=== PATIENT | male | born 1965 | race Caucasian/White ===

== ENCOUNTER 2019-01-20 14:07 | Outpatient (REF) | payer MEDICAID, SELFPAY ==
[2019-01-20 20:44] LABS: Abs Immature Grans 0.03 k/cumm (0.0-0.09); Absolute Basophil Count 0.04 k/cumm (0.0-0.2); Absolute Eosinophil Count 0.27 k/cumm (0.0-0.7); Absolute Lymphocyte Count 3.13 k/cumm (1.2-3.4); Absolute Monocyte Count 1.27 k/cumm (0.11-0.7); Absolute Neutrophil Count 10.08 k/cumm (1.2-6.7); Basophils % 0.3; Eosinophils % 1.8; HCT 40.7 % (40.0-50.0); HGB 13.8 g/dL (13.5-17.5); Immature Grans % 0.2; Lymphocytes % 21.1; Mean Corp. HGB Concentration 33.9 g/dL (32.0-36.0); Mean Corpuscular Volume 100.2 fL (80-95); Mean Platelet Volume 10.7 fL (8.0-11.0); Monocytes % 8.6; Platelet Count 333 x1000/uL (130-400); RBC 4.06 m/cumm (4.50-6.00); RBC Distribution Width 14.8 % (11.8-14.1); White Blood Cell Count 14.82 k/cumm (4.4-10.8)
[2019-01-20 20:52] LABS: ALT 23 U/L (16-63); AST 14 U/L (15-37); Albumin 3.7 g/dL (3.4-5.0); Alkaline Phosphatase 53 U/L (46-116); Anion Gap 9.4 mmol/L (3-11); BUN 7 mg/dL (7-18); Bilirubin, Total 0.3 mg/dL (0.2-1.0); C-Reactive Protein 0.48 mg/dL (0.0-0.3); CO2 29.6 mmol/L (21.0-32.0); CREATININE 0.84 mg/dL (0.70-1.30); Calcium 8.9 mg/dL (8.5-10.1); Chloride 106 mmol/L (98-107); Glucose 87 mg/dL (70-100); Sodium 145 mmol/L (136-145); Total Protein 6.6 g/dL (6.4-8.2)
[2019-01-20 22:04] LABS: ESR 15 mm/hr (1-20)
== END 2019-01-20 14:27 ==
LOC: NCHCN 14:07
PROVIDERS: PCP Family Medicine; Visit Provider Family Medicine
DX: A77.40 Ehrlichiosis, unspecified (principal)
CPT/HCPCS: 80053; 85652; 85025; 86140

== ENCOUNTER 2019-02-10 15:18 | Outpatient (REF) | payer MEDICAID, SELFPAY ==
[2019-02-10 21:06] LABS: Hemoglobin A1C 5.4 % (4.5-6.2)
[2019-02-10 21:32] LABS: Calculated LDL 90 mg/dL; Cholesterol 161 mg/dL (50-200); HDL Cholesterol 47 mg/dL (40-60); TSH (W/Ref FT4) 0.49 uIU/mL (0.36-3.74); Triglyceride 123 mg/dL (30-150); Vitamin B12 1285 pg/mL (193-986)
[2019-02-14 10:13] LABS: Hep B Core Antibody Negative (NEGAT)
[2019-02-14 10:26] LABS: Hepatitis C Ab w Rflx HCV PCR Negative (NEGAT)
== END 2019-02-10 15:38 ==
LOC: NCHCN 15:18
PROVIDERS: PCP Family Medicine; Visit Provider Nurse Practitioner Family
DX: F41.8 Other specified anxiety disorders (principal); F10.20 Alcohol dependence, uncomplicated; Z11.59 Encounter for screening for other viral diseases
CPT/HCPCS: 80061; 86704; 86803; 82607; 83036; 84443

== ENCOUNTER 2019-02-16 11:06 | Outpatient (REF) | payer MEDICAID, SELFPAY ==
[2019-02-16 21:34] LABS: Abs Immature Grans 0.05 k/cumm (0.0-0.09); Absolute Eosinophil Count 0.45 k/cumm (0.0-0.7); Absolute Lymphocyte Count 2.83 k/cumm (1.2-3.4); Absolute Monocyte Count 1.36 k/cumm (0.11-0.7); Absolute Neutrophil Count 12.03 k/cumm (1.2-6.7); Basophils % 0.2; Eosinophils % 2.7; HCT 47.1 % (40.0-50.0); HGB 15.4 g/dL (13.5-17.5); Immature Grans % 0.3; Lymphocytes % 16.9; Mean Corp. HGB Concentration 32.7 g/dL (32.0-36.0); Mean Corpuscular Hemoglobin 32.8 pg (27.0-33.0); Mean Corpuscular Volume 100.2 fL (80-95); Mean Platelet Volume 11.3 fL (8.0-11.0); Monocytes % 8.1; Neutrophils % 71.8; Platelet Count 295 x1000/uL (130-400); RBC Distribution Width 14.6 % (11.8-14.1); White Blood Cell Count 16.76 k/cumm (4.4-10.8)
[2019-02-16 21:35] LABS: Absolute Basophil Count 0.03 k/cumm (0.0-0.2)
[2019-02-16 21:55] LABS: C-Reactive Protein 1.83 mg/dL (0.0-0.3)
[2019-02-16 22:15] LABS: ESR 11 mm/hr (1-20)
[2019-02-18 23:16] LABS: Anaplasma phagocytophilum Negative (Negative); B. miyamotoi PCR Negative (Negative); Babesia divergens/MO-1 Negative (Negative); Babesia duncani Negative (Negative); Babesia microti Negative (Negative); Ehrlichia chaffeensis Negative (Negative); Ehrlichia ewingii/canis Negative (Negative); Ehrlichia muris eauclairensis Negative (Negative)
[2019-02-20 11:06] LABS: Rheumatoid Factor 9 IU/mL (<12.5)
[2019-02-20 12:09] LABS: Lyme Ab w Rflx to Lyme Confirm Negative
[2019-02-20 14:20] LABS: ANA Interpretation Negative (NEGAT)
== END 2019-02-16 11:26 ==
LOC: NCHCN 11:06
PROVIDERS: PCP Family Medicine; Visit Provider Nurse Practitioner Family
DX: D64.9 Anemia, unspecified (principal); G89.4 Chronic pain syndrome; M79.641 Pain in right hand; W57.XXXA Bitten or stung by nonvenomous insect and other nonvenomous arthropods, initial encounter; T14.8XXA Other injury of unspecified body region, initial encounter
CPT/HCPCS: 85652; 87798; 85025; 86038; 86140; 86431; 86618

== ENCOUNTER 2021-01-01 21:32 | Outpatient (REF) | payer MEDICAID, SELFPAY ==
[2021-01-02 18:35] LABS: PSA, Screening 1.5 ng/mL (0.0-3.5)
== END 2021-01-01 21:33 | disposition home or self-care (01) ==
LOC: NCHCN 21:32
PROVIDERS: PCP Family Medicine; Visit Provider Nurse Practitioner Community Health
DX: Z12.5 Encounter for screening for malignant neoplasm of prostate (principal)
CPT/HCPCS: 84153

== ENCOUNTER 2021-03-24 16:23 | Emergency (ER) | payer MEDICAID, SELFPAY ==
[2021-03-24 16:45] VITALS: BP 161/73; PULSE 107; RESP 16; TEMP 37.4; O2SAT 99
--- NOTE | 2021-03-24 16:46 | ED.GENADUL_ITS ---
Discharge Plan Disposition Patient Disposition: HOME Condition: Stable Discharge Details Clinical Impression: Opioid abuse, Depression Primary Care Provider: Unknown,Unknown ED Provider: Felipa Mccauley Home Meds and New Rx's Prescriptions: Continued cyanocobalamin (vitamin B-12) [Vitamin B-12] 2,500 mcg Tablet, Sublingual 25,000 mcg PO DAILY RF: 0 meloxicam 15 mg Tablet 15 mg PO .QHS RF: 0 quetiapine [Seroquel] 100 mg Tablet 100 - 200 mg PO .QHS RF: 0 lamotrigine 100 mg Tablet 100 mg PO BID RF: 0 cholecalciferol (vitamin D3) [Vitamin D3] 25 mcg (1,000 unit) Capsule 1,000 unit PO BID RF: 0 duloxetine 60 mg Capsule,Delayed Release(Dr/Ec) 60 mg PO DAILY RF: 0 Discharge Instructions Instructions: Buprenorphine/Naloxone (Into the mouth), Naloxone (Into the nose), Depression (ED) Additional Instructions: Plan is for you to have close follow-up with mental health. Please call tomorrow to check in. You are to call between 4-6 PM tomorrow evening at [phone]. If you have any increased anxiety, depression you may contact them at any time. If you develop thoughts of self-harm, suicidal ideation please return urgently to the emergency department. In regard to your opioid addiction, you will be starting on the medication assisted treatment of opioid use disorder program. We are setting you home with Suboxone. Please only as prescribed. Your girlfriend is to be in charge of these and keep it in a safe place. Drop was sent home with Narcan to be used if you have any evidence of respiratory depression or overdose. Please call [facility] tomorrow morning to schedule follow-up appointment as soon as possible. Number is listed on the attached packet. Return with any new or worsening symptoms. Please follow-up with primary care in 1 week for reevaluation. Discharge Data Discharge Date/Time-TO BE ENTERED AT DEPARTURE: 03/24/21 19:37 Medical Decision Making Patient is a pleasant 55 year old male presenting today with c/c of withdrawal symptoms from suboxone. States that he has known cancer. During admission for his cancer, state he became addicted to narcotics. After d/c wanted to get clean and thought suboxone would be the way to do so. States that he had intended to stop but became addicted to the suboxone that he has been getting off the street. Ran out today. States that he had been taking 8mg a day. is concerned that he has been expressing thoughts of self harm at home. He denies active SI, HI or plan. However, acknowledges that he has not been doing well mentally at home. Patient here requesting help setting up suboxone as an outpatient through [facility] program. By COWS evaluation, score of 4 making him mild withdrawal symptoms. Last dose of suboxone was 24 hours ago. His major complaint at this time is anxiety. Will give ativan. HAve requested consultation with and cross country/track and field coach. As he is not actively suicidal, appears to have good personal insight and support, will hold off on CPSO. Feeling improved after Ativan. Folowing MAT, will obtain requested labs. Plan to get in with [facility] tomorrow. Hoping to get patient tied in closer with and have a cross country/track and field coach. Patient evaluated by cross country/track and field coach as well as . will tie patient in closer and get f/u with their providers for counseling as well as psychiatrist. Kelle will also check in with patient daily. She feels that patient is safe for d/c to home and good candidate for MAT. Reevlauted the patient, he appears much calmer. Is forward thinging and excited to be seeking care with above groups. Patient, his girlfriend and I discussed MAT program and sending home with suboxone today. I feel that he is an excellent candidate to begin this. Have sent referral to [facility]. Plan will be for SO to be in charge of the medication although patient does want to use only 8mg per day and get help. Risks/benefits were discussed at length. They voice understand and would like to move forward wit his program. Will send home with Suboxone and Narcan. Strict return precautiosn discussed. He will f/u with cross country/track and field coach and . All of their quesitons and concerns were addressed, they arein agreement with this plan. Patient has PCP and team for his cancer treatment, does not feel that he needs more assistance with this. I have asked care management to help with f/u with [facility] clinic and ensure no barriers. HPI General Mode of arrival: ambulatory . Date/Time Provider Initiated Documentation: 03/24/21 16:30 . Limitations to Documentation: no limitations . Information obtained by: patient, family () and RN notes reviewed . HPI Narrative: Patient is a pleasant 55 year old male presenting today with c/c of wanting detox. Patient states that he was admitted for cancer several months ago at [facility]. States that while there he became addicted to opiates. States in effort to get clean, he began using Suboxone. thoughts that he would get off of it quickly so was getting this off the street. States he has been using 8mg daily. Ran out yesterday. Wants to be able to get clean. Has not had any safety issues in his life associated iwth htis. Has supportive SO who has narcan in event of OD. He denies ETOH or other drug use. States he has hx of depression and this has been increased, associates with drug use. Denies SI or HI. Reports he is currently feeling shaky and anxious. Related Data Home Medications Medication Instructions Recorded Confirmed cholecalciferol (vitamin D3) 1,000 unit PO BID 03/24/21 03/24/21 [Vitamin D3] cyanocobalamin (vitamin B-12) 25,000 mcg PO DAILY 03/24/21 03/24/21 [Vitamin B-12] duloxetine 60 mg PO DAILY 03/24/21 03/24/21 lamotrigine 100 mg PO BID 03/24/21 03/24/21 meloxicam 15 mg PO .QHS 03/24/21 03/24/21 quetiapine [Seroquel] 100 - 200 mg PO .QHS 03/24/21 03/24/21 Allergies Allergy/AdvReac Type Severity Reaction Status Date / Time bupropion [From Wellbutrin] Allergy Unverified 03/24/21 16:54 Review of Systems Constitutional Constitutional: Reports as per HPI, Reports fatigue, Denies fever(s) and Denies headache(s) ENT Ears, Nose, Mouth, and Throat: Denies headache(s) Cardiovascular Cardiovascular: Reports as per HPI, Denies chest pain and Denies dyspnea Respiratory Respiratory: Reports as per HPI, Denies cough and Denies dyspnea Gastrointestinal Gastrointestinal: Reports as per HPI, Denies abdominal pain, Denies change in bowel habits, Denies nausea and Denies vomiting Genitourinary Genitourinary: Denies system reviewed and no additional complaints, except as documented (denies any change in urinary habits) Integumentary/Breasts Skin/Breast: Reports as per HPI and Denies rash Neurologic Neurologic: Denies headache(s) Psychiatric Psychiatric: Reports as per HPI, Reports abnormal sleep pattern, Reports anxiety, Reports depression, Reports mood swings, Denies homicidal ideation and Denies suicidal ideation Endocrine Endocrine: Reports fatigue PFSH Social History Smoking/Tobacco Use Status: Current every day Tobacco Type: cigarettes Smoking risk assessment performed?: Yes Alcohol Intake: former Drug use: Daily Details: suboxone Exam Const General: cooperative, healthy appearing, comfortable, no acute distress, well developed, well groomed and anxious Nutritional Appearance: average body habitus and well nourished Orientation: alert and awake Eyes General: appearance normal, both eyes and all related structures Resp Effort & Inspection: normal respiratory effort, able to speak in complete sentences and no respiratory distress Auscultation: clear to auscultation bilaterally, no rales, no rhonchi and no wheezes Cardio Rate: regular rate Rhythm: regular rhythm Heart Sounds: S1 normal and S2 normal Skin General skin exam: no rashes or lesions noted Trauma: no lacerations or abrasions Neuro General: patient alert and patient awake Cognition: normal cognition Speech: speech normal Gait: normal gait Psych Appearance: grossly normal and well kempt Mental Status: mental status grossly normal Speech and Movement: speech and movement normal Mood: anxious mood Affect: anxious affect Attitude: cooperative Thought Process: normal Thought Content: normal Insight: insight good Judgment: judgment good
[2021-03-24] MEDS: LORazepam 1 MG TAB PO (17:47)
[2021-03-24 18:17] LABS: Abs Immature Grans 0.05 10^3/uL (0.0-0.06); Absolute Basophil Count 0.05 10^3/uL (0.0-0.2); Absolute Eosinophil Count 0.38 10^3/uL (0.0-0.7); Absolute Lymphocyte Count 2.32 10^3/uL (1.2-3.4); Absolute Monocyte Count 1.25 10^3/uL (0.1-0.8); Basophils % 0.3; Eosinophils % 2.3; HCT 40.2 % (40.0-50.0); Immature Grans % 0.3; Lymphocytes % 13.9; MCH 33.2 pg (27.0-33.0); MCHC 32.3 % (32.0-36.0); MCV 102.6 fL (80-95); MPV 8.8 fL (8.0-11.0); Monocytes % 7.5; Neutrophils % 75.7; Nucleated RBC 0 %; Platelet Count 345 10^3/uL (130-400); RBC 3.92 10^6/uL (4.36-5.78); RDW 16.3 % (11.8-14.1); RDW-SD 62.5 fL
[2021-03-24 18:20] LABS: *AMPHETAMINES SCREEN URINE Negative (Negative); *BARBITURATES SCREEN URINE Negative (Negative); *BENZODIAZEPINES SCREEN URINE Negative (Negative); Cannabinoids THC Negative (Negative); Cocaine Screen,Urine Negative (Negative); METHADONE URINE SCREEN Negative (Negative); OPIATES URINE SCREEN Negative (Negative); Tricyclic Antidepressants Negative (Negative)
[2021-03-24 18:22] LABS: Absolute Neutrophil Count 12.64 10^3/uL (1.2-6.7)
[2021-03-24 18:37] LABS: Acetaminophen < 2 ug/mL (10-30); Salicylate 6.5 mg/dL (<2.8)
[2021-03-24 18:41] LABS: ALT 30 U/L (16-63); AST 14 U/L (15-37); Albumin 3.4 g/dL (3.4-5.0); Alkaline Phosphatase 56 U/L (46-116); Anion Gap 7.8 mmol/L (3-11); BUN 15 mg/dL (7-18); Bilirubin, Total 0.2 mg/dL (0.2-1.0); CO2 30.2 mmol/L (21.0-32.0); CREATININE 0.7 mg/dL (0.70-1.30); Calcium 8.8 mg/dL (8.5-10.1); Chloride 102 mmol/L (98-107); Glucose 99 mg/dL (74-106); Potassium 4.1 mmol/L (3.5-5.1); Sodium 140 mmol/L (136-145); TSH (W/Ref FT4) 0.45 uIU/mL (0.36-3.74); Total Protein 6.8 g/dL (6.4-8.2)
[2021-03-24 18:49] LABS: ETHANOL BLOOD < 3.0 mg/dL (<10)
[2021-03-24 19:29] VITALS: BP 133/74; PULSE 85; TEMP 36.6; O2SAT 95
--- NOTE | 2021-03-24 19:37 | NUR.NOTE ---
Nursing Note: faxed the care management referral for panchito to care management marisa
[2021-03-24 20:04] LABS: Bilirubin Negative (Negative); Blood Negative (Negative); Clarity Clear (Clear); Glucose Negative (Negative); Ketones Negative (Negative); Leukocyte Esterase Negative (Negative); Nitrite Negative (Negative); Specific Gravity 1.015 (1.005-1.025); Urobilinogen 0.2 EU/dL (Up TO 0.2); pH 6.5 (5-8)
[2021-03-26 14:07] LABS: HBs Antibody, Qual Negative (See Note); HBs Antibody, Quant <3.1 mIU/mL (See Note); Hepatitis B Core Antibody Negative (Negative); Hepatitis B surface Ag Negative (Negative); Hepatitis C Ab w Rflx HCV PCR Negative (Negative)
[2021-03-26 14:18] LABS: HIV-1/2 Ag & Ab Screen Negative (Negative)
== END 2021-03-24 19:37 | disposition home or self-care (01) ==
PROVIDERS: Emergency Provider Physician Assistant
DX: F11.20 Opioid dependence, uncomplicated (principal); F32.9 Major depressive disorder, single episode, unspecified
CPT/HCPCS: 36415; 80053; 80307; 86704; 86706; 86803; 87340; 87389; 99283; 80320; 80329; 81003; 84443; 85025

== ENCOUNTER 2021-06-11 14:10 | Outpatient (REF) | payer MEDICAID, SELFPAY ==
[2021-06-11 21:20] LABS: Abs Immature Grans 0.03 10^3/uL (0.0-0.06); Absolute Basophil Count 0.07 10^3/uL (0.0-0.2); Absolute Eosinophil Count 0.37 10^3/uL (0.0-0.7); Absolute Lymphocyte Count 1.71 10^3/uL (1.2-3.4); Absolute Monocyte Count 0.82 10^3/uL (0.1-0.8); Basophils % 0.6; HGB 13.6 g/dL (13.5-17.5); Immature Grans % 0.2; MCH 32.2 pg (27.0-33.0); MCHC 31.6 % (32.0-36.0); MCV 101.7 fL (80-95); Monocytes % 6.7; Neutrophils % 75.5; Nucleated RBC 0 %; Platelet Count 487 10^3/uL (130-400); RBC 4.23 10^6/uL (4.36-5.78); RDW 13.7 % (11.8-14.1); RDW-SD 51.8 fL; WBC 12.22 10^3/uL (4.4-10.8)
[2021-06-11 21:56] LABS: Absolute Neutrophil Count 9.22 10^3/uL (1.2-6.7)
[2021-06-11 21:57] LABS: ALT 25 U/L (16-63); AST 19 U/L (15-37); Albumin 3.7 g/dL (3.4-5.0); Alkaline Phosphatase 78 U/L (46-116); Anion Gap 5.1 mmol/L (3-11); BUN 22 mg/dL (7-18); Bilirubin, Total 0.3 mg/dL (0.2-1.0); CO2 31.9 mmol/L (21.0-32.0); CREATININE 1.2 mg/dL (0.70-1.30); Calcium 9.3 mg/dL (8.5-10.1); Chloride 102 mmol/L (98-107); Glucose 109 mg/dL (74-106); Potassium 4.7 mmol/L (3.5-5.1); Sodium 139 mmol/L (136-145); Total Protein 6.9 g/dL (6.4-8.2)
[2021-06-11 21:58] LABS: Vitamin B12 > 2000 pg/mL (193-986)
[2021-06-11 22:39] LABS: Lipase 52 U/L (73-393)
== END 2021-06-11 14:11 | disposition home or self-care (01) ==
LOC: NCHCN 14:10
PROVIDERS: Visit Provider Nurse Practitioner Family
DX: C81.98 Hodgkin lymphoma, unspecified, lymph nodes of multiple sites (principal); J44.9 Chronic obstructive pulmonary disease, unspecified; E63.9 Nutritional deficiency, unspecified
CPT/HCPCS: 80053; 83690; 82607; 85025

== ENCOUNTER 2023-03-08 15:17 | Outpatient (REF) | payer MEDICAID, SELFPAY ==
[2023-03-08 21:11] LABS: HCT 46.2 % (40.0-50.0); HGB 15.6 g/dL (13.5-17.5); MCH 33.4 pg (27.0-33.0); MCHC 33.8 % (32.0-36.0); MCV 99 fL (80-95); MPV 9.9 fL (8.0-11.0); Platelet Count 441 10^3/uL (130-400); RBC 4.67 10^6/uL (4.36-5.78); RDW-SD 51.5 fL; WBC 12.63 10^3/uL (4.4-10.8)
[2023-03-08 21:47] LABS: ALT 28 U/L (16-63); AST 22 U/L (15-37); Albumin 4.2 g/dL (3.4-5.0); Alkaline Phosphatase 72 U/L (46-116); Anion Gap 9.9 mmol/L (3-11); BUN 18 mg/dL (7-18); Bilirubin, Total 0.3 mg/dL (0.2-1.0); CO2 25.1 mmol/L (21.0-32.0); CREATININE 0.9 mg/dL (0.70-1.30); Calcium 9.8 mg/dL (8.5-10.1); Chloride 102 mmol/L (98-107); Estimated GFR 98.38 (mL/min/1.73m2); Glucose 106 mg/dL (74-106); Magnesium 2.1 mg/dL (1.8-2.4); Potassium 4.2 mmol/L (3.5-5.1); Sodium 137 mmol/L (136-145); TSH 0.77 uIU/mL (0.36-3.74); Total Protein 8.1 g/dL (6.4-8.2)
[2023-03-08 21:48] LABS: Vitamin B12 > 2000 pg/mL (193-986)
== END 2023-03-08 15:18 | disposition home or self-care (01) ==
LOC: NCHCN 15:17
PROVIDERS: Visit Provider Registered Nurse
DX: R07.9 Chest pain, unspecified (principal)
CPT/HCPCS: 80053; 85027; 82607; 83735; 84443

== ENCOUNTER 2024-02-03 13:05 | Outpatient (REF) | payer MEDICAID, SELFPAY ==
--- OUTSIDE RECORDS SUMMARY | 2024-02-03 13:07 | XMS_ITS ---
Author Organization Unknown Address [address] [place], [place] [phone] Phone Care Team Providers Care Design Technology Teacher Name Role Phone SHAINA FROST Attending Unavailable CATRACHO Jain Primary Unavailable Social History Type Status Start Date End Date Code Code Syst em Smoking History Current every day smoker [address] Sex Male Medications Medication Start Date End Date Route Frequency Dose Code Code System Medication Instructions Home Meds SEROquel 100MG Oral Tablet 02/07/2017 Unknown ORAL BEDTIME 100 MILLIGRAMS 047653 RxNorm TAKE 100 MILLIGRAMS ORAL BEDTIME lamoTRIgine 100MG Oral Tablet 02/07/2017 3 ORAL TWICE A DAY 100 MILLIGRAMS 478836 RxNorm TAKE 100 MILLIGRAMS ORAL TWICE A DAY Mapap 325MG Oral Tablet 02/07/2017 3 BY MOUTH NEEDED EVERY 4 HOURS 650 MILLIGRAMS 575837 RxNorm TAKE 650 MILLIGRAMS BY MOUTH NEEDED EVERY 4 HOURS Thera-M Enhanced 90MG-0.03MG-0 .15MG-4 Oral Tablet 09/25/2017 Unknown BY MOUTH DAILY WITH FOOD 1 TABLET 392169 RxNorm TAKE 1 TABLET BY MOUTH DAILY WITH FOOD EC Naproxen 500MG Oral Tablet, Enteric Coated 04/25/2021 3 ORAL TWICE A DAY 1 TABLET 295348 RxNorm TAKE 1 TABLET ORAL TWICE A DAY, always with food/fluid Assessment You had the following problems:PNEUMONIACOPDLYMPHOMABAKER'S CYST OF KNEERIGHT TESTICULAR PAIN Hospital Discharge Instructions Should you have any questions prior to discharge, please contact a member of your healthcare team. If you have left the hospital and have any questions, please contact your primary care physician. Reason For Referral No Data Found Problems Problem Start Date Resolved Date Status Code Code System PNEUMONIA active 404495407 SNOMED-CT COPD active 38048102 SNOMED-CT LYMPHOMA active 945574595 SNOMED-CT DIAZ'S CYST OF KNEE active 973177141 SNOMED-CT RIGHT TESTICULAR PAIN active 23896817 138919948 SNOMED-CT ALCOHOL WITHDRAWAL 09/08/2020 resolved 888726359 SNOMED-CT Allergies and Adverse Reactions Allergy Substance Reaction Severity Start Date Concern Status Co de Code System MIRTAZAPINE Active 84856 RxNorm WELLBUTRIN Seizure (SNOMED-CT: 63472212) Severe Active 88265 RxNorm Plan of Treatment Pre-Op Testing 10/07/2020 Pre-Op Covid-19 Testing 07/04/2020 Pre-Op Covid-19 Testing 06/19/2020 Pre-Op Covid-19 Testing 04/30/2020 Pre-Op Covid-19 Testing 05/03/2020 NM MPI STR/RST 04/14/2023 US RENAL 07/08/2021 X-RAY 06/19/2021 PSG NIGHT 05/05/2021 Encounters Encounter Diagnosis Start Date Code Code Sys tem Refusal of treatment by patient 10/30/2021 968195347 SNOMED-CT Personal Care Team Section Performer Name Performer Role Active Date Inactive Da yosef
--- OUTSIDE RECORDS SUMMARY | 2024-02-03 13:08 | XMS_ITS ---
Author Organization Unknown Address [address] [place] [phone] Phone Care Team Providers Care Youth Counselor Name Role Phone GISELA KATRINA Dyan Attending Unavailable CATRACHO Jain Primary Unavailable Results US RETROPERITONEAL COMPLETE - Completed: 07/08/2021 16:21 LOINC: ULTRASOUND OF THE KIDNEYS:Ori th kidneys measures approximately 11 cm length. There is a 1.7 by 1.2 cm exophytic cyst off the superior pole region of the left kidney. No other focal renal findings. No hydronephrosis. No shadowing calculi in the kidneys. Urinary bladder volume is only 27 cc making evaluation difficult. Both ureterovesical jets were identified. Dictated by: KAPIL QUINTERO MD Transcribed by: LAVERNE 07/09/21/08:11 D Thursday, July 08, 2021 4:44:20 PM [id number] Electronically Reviewed and Signed By: CHRISTIE QUINTERO MD 07/09/21 18:36 Copy for: 185 HEALTH INFORMATION MGMT Social History Type Status Start Date End Date Code Code Syst em Smoking History Current every day smoker [address] Sex Male Medications Medication Start Date End Date Route Frequency Dose Code Code System Medication Instructions Home Meds SEROquel 100MG Oral Tablet 02/07/2017 Unknown ORAL BEDTIME 100 MILLIGRAMS 481178 RxNorm TAKE 100 MILLIGRAMS ORAL BEDTIME lamoTRIgine 100MG Oral Tablet 02/07/2017 3 ORAL TWICE A DAY 100 MILLIGRAMS 296885 RxNorm TAKE 100 MILLIGRAMS ORAL TWICE A DAY Mapap 325MG Oral Tablet 02/07/2017 3 BY MOUTH NEEDED EVERY 4 HOURS 650 MILLIGRAMS 898040 RxNorm TAKE 650 MILLIGRAMS BY MOUTH NEEDED EVERY 4 HOURS Thera-M Enhanced 90MG-0.03MG-0 .15MG-4 Oral Tablet 09/25/2017 Unknown BY MOUTH DAILY WITH FOOD 1 TABLET 205991 RxNorm TAKE 1 TABLET BY MOUTH DAILY WITH FOOD EC Naproxen 500MG Oral Tablet, Enteric Coated 04/25/2021 3 ORAL TWICE A DAY 1 TABLET 105662 RxNorm TAKE 1 TABLET ORAL TWICE A [...] Date Status Code Code System PNEUMONIA active 444688002 SNOMED-CT COPD active 24382247 SNOMED-CT LYMPHOMA active 709991584 SNOMED-CT DIAZ'S CYST OF KNEE active 121557682 SNOMED-CT RIGHT TESTICULAR PAIN active 61196941 917284946 SNOMED-CT ALCOHOL WITHDRAWAL 09/08/2020 resolved 931600197 SNOMED-CT Allergies and Adverse Reactions Allergy Substance Reaction Severity Start Date Concern Status Co de Code System MIRTAZAPINE Active 44299 RxNorm WELLBUTRIN Seizure (SNOMED-CT: 67549013) Severe Active 89488 RxNorm Plan of Treatment Pre-Op Testing 10/07/2020 Pre-Op Covid-19 Testing 07/04/2020 Pre-Op Covid-19 Testing 06/19/2020 Pre-Op Covid-19 Testing 04/30/2020 Pre-Op Covid-19 Testing 05/03/2020 NM MPI STR/RST 04/14/2023 US RENAL 07/08/2021 X-RAY 06/19/2021 PSG NIGHT 05/05/2021 Encounters Encounter Diagnosis Start Date Code Code 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
--- OUTSIDE RECORDS SUMMARY | 2024-02-03 13:08 | XMS_ITS ---
Author Organization Unknown Address [address], [place] [phone] Phone Care Team Providers Care Leather Grainer Name Role Phone ARCE GEORGIA Attending Unavailable CATRACHO Jain Primary Unavailable Results COMPREHENSIVE METABOLIC PANE L (CMP) - Collect Date/Time: 09/02/2021 15:40 [facility] ID: [id number] [address], [place], [address] LOINC: 95265-6 Test Value Unit Reference Range Code Code System Flag GLUCOSE 96 mg/dL L=70 H=116 2345-7 LOINC BUN 15 mg/dL L=6 H=25 3094-0 LOINC CREATININE 0.81 mg/dL L=0.67 H=1.17 2160-0 LOINC SODIUM SERUM 139 mmol/L L=136 H=145 2951-2 LOINC POTASSIUM SERUM 4.3 mmol/L L=3.4 H=5.2 2823-3 LOINC CHLORIDE SERUM 101 mmol/L L=96 H=110 2075-0 LOINC CARBON DIOXIDE (CO2) 31 mmol/L L=22 H=34 2028-9 LOINC ANION GAP 7.4 mmol/L 89264-4 LOINC CALCIUM SERUM 9.2 mg/dL L=8.2 H=10.2 34160-3 LOINC BILIRUBIN TOTAL 0.3 mg/dL L=0.0 H=1.3 1975-2 LOINC ALK. PHOS. 77 U/L L=46 H=116 6768-6 LOINC SGOT (AST) 17 U/L L=15 H=37 1920-8 LOINC SGPT (ALT) 26 U/L L=12 H=78 1742-6 LOINC TOTAL PROTEIN 7.5 gm/dL L=6.0 H=8.0 2885-2 LOINC ALBUMIN 3.9 gm/dL L=3.4 H=5.0 1751-7 LOINC AGE 56 years eGFR (non-Afr.Amer.) 98 mL/min 77582-7 LOINC eGFR (Afr-Spanish) 118 mL/min 83369-6 LOINC HEP B SURF ANTIGEN* - [facility] t Date/Time: 09/02/2021 15:40 [facility] ID: [id number] [address] [place] [address], [id number] LOINC: 5196-1 Test Value Unit Reference Range Code Code System Flag Hep B Surface Ag Negative Negative HEP B CORE ANTIBODY TOTAL - Collect Date/Time: 09/02/2021 15:40 [facility] ID: [id number] [address] [place] [address], [id number] LOINC: 67812-7 Test Value Unit Reference Range Code Code System Flag Hep B Core Antibody Negative Negative HEP B SURF ANTIBODY* [place] [facility] [place]/Time: 09/02/2021 15:40 [facility] ID: [id number] [address] [place] [address], [id number] LOINC: 91970-5 Test Value Unit Reference Range Code Code System Flag Hep B Surface Ab Negative See Note HBs Antibody, Quant 6.4 mIU/mL See Note HIV 1/2 ANTIGEN AND ANTIBODY SCREEN - Collect Date/Time: 09/02/2021 15:40 [facility] ID: [id number] [address] [place] [address], [id number] LOINC: 45644-2 Test Value Unit Reference Range Code Code System Flag HIV 1/2 Antigen andAntibody Negative Negative GGT (GAMMA GLUTAMYL TRANSFER ASE) - Collect Date/Time: 09/02/2021 15:40 [facility] ID: [id number] [address], [place], [id number] LOINC: 2324-2 Test Value Unit Reference Range Code Code System Flag Gamma GT 16 15-73 CBC W/ DIFFERENTIAL* - Colle ct Date/Time: 09/02/2021 15:40 [facility] ID: [id number] [address], [place], [address] LOINC: 80523-7 Test Value Unit Reference Range Code Code System Flag WBC 8.85 th/cmm L=5.00 H=10.00 6690-2 LOINC NEUT % 71.4 % L=40.0 H=80.0 LYMPH % 17.2 % L=10.0 H=50.0 MONO % 8.0 % L=2.0 H=12.0 55155-7 LOINC EOS % 2.5 % L=0.0 H=8.0 BASO % 0.6 % L=0.0 H=3.0 IG % 0.3 % L=0.0 H=1.1 2514-8 LOINC NRBC % 0.0 % L=0.0 H=0.0 34065-0 LOINC NEUT abs count 6.3 th/cmm L=1.6 H=8.4 751-8 LOINC LYMPH abs count 1.5 th/cmm L=1.5 H=4.0 731-0 LOINC MONO abs count 0.7 th/cmm L=0.2 H=1.0 742-7 LOINC EOS abs count 0.2 th/cmm L=0.0 H=0.5 711-2 LOINC BASO abs count 0.1 th/cmm L=0.0 H=0.2 704-7 LOINC IG abs count 0.0 th/cmm L=0.0 H=0.1 66464-2 LOINC NRBC abs count 0.0 mil/cmm L=0.0 H=0.0 47893-3 LOINC RBC 4.58 mil/cmm L=4.30 H=6.20 789-8 LOINC HEMOGLOBIN 14.8 gm/dL L=13.0 H=17.0 718-7 LOINC HEMATOCRIT 46 % L=45 H=52 4544-3 LOINC MCV 101 fL L=82 H=92 787-2 LOINC H MCH 32.3 pg L=27.0 H=31.0 785-6 LOINC H MCHC 32.0 % L=32.0 H=36.0 786-4 LOINC RDW-SD 52.3 fL L=39.0 H=49.0 788-0 LOINC H PLATELET COUNT 358 th/cmm L=150 H=450 777-3 LOINC Social History Type Status Start Date End Date Code Code Syst em Smoking History Current every day smoker [address] Sex Male Medications Medication Start Date End Date Route Frequency Dose Code Code System Medication Instructions Home Meds SEROquel 100MG Oral Tablet 02/07/2017 Unknown ORAL BEDTIME 100 MILLIGRAMS 394440 RxNorm TAKE 100 MILLIGRAMS ORAL BEDTIME lamoTRIgine 100MG Oral Tablet 02/07/2017 3 ORAL TWICE A DAY 100 MILLIGRAMS 953128 RxNorm TAKE 100 MILLIGRAMS ORAL TWICE A DAY Mapap 325MG Oral Tablet 02/07/2017 3 BY MOUTH NEEDED EVERY 4 HOURS 650 MILLIGRAMS 054873 RxNorm TAKE 650 MILLIGRAMS BY MOUTH NEEDED EVERY 4 HOURS Thera-M Enhanced 90MG-0.03MG-0 .15MG-4 Oral Tablet 09/25/2017 Unknown BY MOUTH DAILY WITH FOOD 1 TABLET 727612 RxNorm TAKE 1 TABLET BY MOUTH DAILY WITH FOOD EC Naproxen 500MG Oral Tablet, Enteric Coated 04/25/2021 3 ORAL TWICE A DAY 1 TABLET 292921 RxNorm TAKE 1 TABLET ORAL TWICE A [...] Date Status Code Code System PNEUMONIA active 725773354 SNOMED-CT COPD active 92759027 SNOMED-CT LYMPHOMA active 538865760 SNOMED-CT DIAZ'S CYST OF KNEE active 707166563 SNOMED-CT RIGHT TESTICULAR PAIN active 11562996 113055665 SNOMED-CT ALCOHOL WITHDRAWAL 09/08/2020 resolved 363378433 SNOMED-CT Allergies and Adverse Reactions Allergy Substance Reaction Severity Start Date Concern Status Co de Code System MIRTAZAPINE Active 52046 RxNorm WELLBUTRIN Seizure (SNOMED-CT: 98060757) Severe Active 00187 RxNorm Plan of Treatment Pre-Op Testing 10/07/2020 Pre-Op Covid-19 Testing 07/04/2020 Pre-Op Covid-19 Testing 06/19/2020 Pre-Op Covid-19 Testing 04/30/2020 Pre-Op Covid-19 Testing 05/03/2020 NM MPI STR/RST 04/14/2023 US RENAL 07/08/2021 X-RAY 06/19/2021 PSG NIGHT 05/05/2021 Encounters Encounter Diagnosis Start Date Code Code Sys tem Opioid dependence 09/02/2021 19062847 SNOMED-CT Personal Care Team Section Performer Name Performer Role Active Date Inactive Geovany navas
--- OUTSIDE RECORDS SUMMARY | 2024-02-03 13:08 | XMS_ITS ---
Author Organization Unknown Address [address] [place] [phone] Phone Care Team Providers Care Lens Inspector Name Role Phone RAMADOUG KATRINA Zaidi Attending Unavailable CATRACHO Jain Primary Unavailable Results XR CHEST 2V PA AND LATERAL - Completed: 06/19/2021 16:37 LOINC: PA AND LATERAL CHEST:Compari son is made with June 20. The heart size is normal. There is no mediastinal widening. There is hyperinflation and fibrotic changes. No infiltrate, effusion or pneumothorax is seen. IMPRESSION:Emphysematous changes. No acute abnormality. Dictated by: CEO EWA LERMA MD Transcribed by: LAVERNE 06/20/21/07:13 D , June 19, 2021 2:37:50 PM [id number] Electronically Reviewed and Signed By: EWA LERMA MD 06/29/21 10:58 Copy for: 185 HEALTH INFORMATION MGMT Social History Type Status Start Date End Date Code Code Syst em Smoking History Current every day smoker [address] Sex Male Medications Medication Start Date End Date Route Frequency Dose Code Code System Medication Instructions Home Meds SEROquel 100MG Oral Tablet 02/07/2017 Unknown ORAL BEDTIME 100 MILLIGRAMS 650778 RxNorm TAKE 100 MILLIGRAMS ORAL BEDTIME lamoTRIgine 100MG Oral Tablet 02/07/2017 3 ORAL TWICE A DAY 100 MILLIGRAMS 235375 RxNorm TAKE 100 MILLIGRAMS ORAL TWICE A DAY Mapap 325MG Oral Tablet 02/07/2017 3 BY MOUTH NEEDED EVERY 4 HOURS 650 MILLIGRAMS 203986 RxNorm TAKE 650 MILLIGRAMS BY MOUTH NEEDED EVERY 4 HOURS Thera-M Enhanced 90MG-0.03MG-0 .15MG-4 Oral Tablet 09/25/2017 Unknown BY MOUTH DAILY WITH FOOD 1 TABLET 969251 RxNorm TAKE 1 TABLET BY MOUTH DAILY WITH FOOD EC Naproxen 500MG Oral Tablet, Enteric Coated 04/25/2021 3 ORAL TWICE A DAY 1 TABLET 640516 RxNorm TAKE 1 TABLET ORAL TWICE A [...] Date Status Code Code System PNEUMONIA active 194711444 SNOMED-CT COPD active 43422353 SNOMED-CT LYMPHOMA active 094838434 SNOMED-CT DIAZ'S CYST OF KNEE active 680354467 SNOMED-CT RIGHT TESTICULAR PAIN active 61014257 724426007 SNOMED-CT ALCOHOL WITHDRAWAL 09/08/2020 resolved 161818300 SNOMED-CT Allergies and Adverse Reactions Allergy Substance Reaction Severity Start Date Concern Status Co de Code System MIRTAZAPINE Active 26427 RxNorm WELLBUTRIN Seizure (SNOMED-CT: 92978284) Severe Active 88956 RxNorm Plan of Treatment Pre-Op Testing 10/07/2020 Pre-Op Covid-19 Testing 07/04/2020 Pre-Op Covid-19 Testing 06/19/2020 Pre-Op Covid-19 Testing 04/30/2020 Pre-Op Covid-19 Testing 05/03/2020 NM MPI STR/RST 04/14/2023 US RENAL 07/08/2021 X-RAY 06/19/2021 PSG NIGHT 05/05/2021 Encounters Encounter Diagnosis Start Date Code Code Sys tem Pulmonary emphysema 06/19/2021 80507617 SNOMED-C T Personal Care Team Section Performer Name Performer Role Active Date Inactive Da te
--- OUTSIDE RECORDS SUMMARY | 2024-02-03 13:09 | XMS_ITS ---
Author Organization Unknown Address [address] [place] [address] [phone] Phone Care Team Providers Care Van Loader Name Role Phone SHAINA FROST Attending Unavailable CATRACHO Jain Primary Unavailable Results TSH THYROID STIMULATING HORM ONE* - Collect Date/Time: 09/02/2021 15:40 [facility] ID: [id number] [address] [place] [address], [address] LOINC: 3014-8 Test Value Unit Reference Range Code Code System Flag TSH 0.384 uIU/mL L=0.360 H=3.740 3014-8 LOINC PARANEOPLASTIC AUTOANTIBODY EVAL* - Collect Date/Time: 09/02/2021 15:40 [facility] ID: [id number] [address] [place] [address], [phone] LOINC: 71831-3 Test Value Unit Reference Range Code Code System Flag Interpretive Comments See Below 53173-9 LOINC JUAN JOSE-1, S Negative <1:240 58489-0 LOINC JUAN JOSE-2, S Negative <1:240 82145-8 LOINC JUAN JOSE-3, S Negative <1:240 29361-3 LOINC AGNA-1, S Negative <1:240 37983-6 LOINC PHARMACY RESOURCE TECH-1, S Negative <1:240 03598-8 LOINC PHARMACY RESOURCE TECH-2, S Negative <1:240 51411-7 LOINC PHARMACY RESOURCE TECH-Tr, S Negative <1:240 18548-7 LOINC Amphiphysin Ab, S Negative <1:240 48437-8 LOINC CRMP-5-IgG, S Negative <1:240 81405-0 LOINC P/Q-Type Calcium ChannelAb 0.00 nmol/L <=0.02 79820-8 LOINC Neuronal (V-G) K+Channel Ab, S 0.00 nmol/L <=0.02 22657-3 LOINC Reflex Added None. 32676-5 LOINC Social History Type Status Start Date End Date Code Code Syst em Smoking History Current every day smoker [address] Sex Male Medications Medication Start Date End Date Route Frequency Dose Code Code System Medication Instructions Home Meds SEROquel 100MG Oral Tablet 02/07/2017 Unknown ORAL BEDTIME 100 MILLIGRAMS 120587 RxNorm TAKE 100 MILLIGRAMS ORAL BEDTIME lamoTRIgine 100MG Oral Tablet 02/07/2017 3 ORAL TWICE A DAY 100 MILLIGRAMS 369352 RxNorm TAKE 100 MILLIGRAMS ORAL TWICE A DAY Mapap 325MG Oral Tablet 02/07/2017 3 BY MOUTH NEEDED EVERY 4 HOURS 650 MILLIGRAMS 961657 RxNorm TAKE 650 MILLIGRAMS BY MOUTH NEEDED EVERY 4 HOURS Thera-M Enhanced 90MG-0.03MG-0 .15MG-4 Oral Tablet 09/25/2017 Unknown BY MOUTH DAILY WITH FOOD 1 TABLET 046874 RxNorm TAKE 1 TABLET BY MOUTH DAILY WITH FOOD EC Naproxen 500MG Oral Tablet, Enteric Coated 04/25/2021 3 ORAL TWICE A DAY 1 TABLET 983061 RxNorm TAKE 1 TABLET ORAL TWICE A [...] Date Status Code Code System PNEUMONIA active 859902840 SNOMED-CT COPD active 02823095 SNOMED-CT LYMPHOMA active 507914325 SNOMED-CT DIAZ'S CYST OF KNEE active 043166294 SNOMED-CT RIGHT TESTICULAR PAIN active 25064526 663779211 SNOMED-CT ALCOHOL WITHDRAWAL 09/08/2020 resolved 386280733 SNOMED-CT Allergies and Adverse Reactions Allergy Substance Reaction Severity Start Date Concern Status Co de Code System MIRTAZAPINE Active 79175 RxNorm WELLBUTRIN Seizure (SNOMED-CT: 04300150) Severe Active 72285 RxNorm Plan of Treatment Pre-Op Testing 10/07/2020 Pre-Op Covid-19 Testing 07/04/2020 Pre-Op Covid-19 Testing 06/19/2020 Pre-Op Covid-19 Testing 04/30/2020 Pre-Op Covid-19 Testing 05/03/2020 NM MPI STR/RST 04/14/2023 US RENAL 07/08/2021 X-RAY 06/19/2021 PSG NIGHT 05/05/2021 Encounters Encounter Diagnosis Start Date Code Code Sys tem Other amnesia 09/02/2021 SNOMED-CT Personal Care Team Section Performer Name Performer Role Active Date Inactive Da te
--- OUTSIDE RECORDS SUMMARY | 2024-02-03 13:09 | XMS_ITS ---
Author Organization Unknown Address [address] [place] [address] [phone] Phone Care Team Providers Care Moisture Meter Operator Name Role Phone CHU Jain Attending Unavailable GISELA Zaidi Primary Unavailable Results XR FOOT 3V LT* - Completed: 05/04/2022 14:22 LOINC: [facility] [place], [place] [address] PACS FELT STRIP FINISHER REPORT Patient Name: ZEESHAN ALMODOVAR MRN: Sex: : Age: [id number] M 1965 57 Account: Accession: Admit: StayType: [id number] 05/04/2022 CLINIC Ordered: Order ID: Submitted: Ordering Provider: 05/04/2022 13:41 [id number] BSK MENDOZA SAGE Completed: Technologist: Resulted: 05/04/2022 14:22 BSK 05/04/2022 14:58 Study Description: XR FOOT 3V LT* Study Reason: lt foot pain Technique: 2D digital imaging was performed. 3 images were obtained. COMPARISON: None. FINDINGS: Bones: No acute fractures present. No bony destructive lesion is seen. Joints: No dislocation is present. There is a mild hallux valgus deformity. Soft tissues: Unremarkable. IMPRESSION: No acute abnormality. Report Digitally Signed by Mitchell Cunha on 05/04/2022 02:58 PM EST Social History Type Status Start Date End Date Code Code Syst em Smoking History Current every day smoker [address] Sex Male Medications Medication Start Date End Date Route Frequency Dose Code Code System Medication Instructions Home Meds SEROquel 100MG Oral Tablet 02/07/2017 Unknown ORAL BEDTIME 100 MILLIGRAMS 370610 RxNorm TAKE 100 MILLIGRAMS ORAL BEDTIME lamoTRIgine 100MG Oral Tablet 02/07/2017 3 ORAL TWICE A DAY 100 MILLIGRAMS 670245 RxNorm TAKE 100 MILLIGRAMS ORAL TWICE A DAY Mapap 325MG Oral Tablet 02/07/2017 3 BY MOUTH NEEDED EVERY 4 HOURS 650 MILLIGRAMS 890368 RxNorm TAKE 650 MILLIGRAMS BY MOUTH NEEDED EVERY 4 HOURS Thera-M Enhanced 90MG-0.03MG-0 .15MG-4 Oral Tablet 09/25/2017 Unknown BY MOUTH DAILY WITH FOOD 1 TABLET 734677 RxNorm TAKE 1 TABLET BY MOUTH DAILY WITH FOOD EC Naproxen 500MG Oral Tablet, Enteric Coated 04/25/2021 3 ORAL TWICE A DAY 1 TABLET 061078 RxNorm TAKE 1 TABLET ORAL TWICE A [...] Date Status Code Code System PNEUMONIA active 338118860 SNOMED-CT COPD active 52093890 SNOMED-CT LYMPHOMA active 841143991 SNOMED-CT DIAZ'S CYST OF KNEE active 447166566 SNOMED-CT RIGHT TESTICULAR PAIN active 84028117 320312004 SNOMED-CT ALCOHOL WITHDRAWAL 09/08/2020 resolved 371668764 SNOMED-CT Allergies and Adverse Reactions Allergy Substance Reaction Severity Start Date Concern Status Co de Code System MIRTAZAPINE Active 24043 RxNorm WELLBUTRIN Seizure (SNOMED-CT: 99138448) Severe Active 74435 RxNorm Plan of Treatment Pre-Op Testing 10/07/2020 Pre-Op Covid-19 Testing 07/04/2020 Pre-Op Covid-19 Testing 06/19/2020 Pre-Op Covid-19 Testing 04/30/2020 Pre-Op Covid-19 Testing 05/03/2020 NM MPI STR/RST 04/14/2023 US RENAL 07/08/2021 X-RAY 06/19/2021 PSG NIGHT 05/05/2021 Encounters Encounter Diagnosis Start Date Code Code Sys tem 05/04/2022 [id number] SNOMED-CT Personal Care Team Section Performer Name Performer Role Active Date Inactive Geovany navas
--- OUTSIDE RECORDS SUMMARY | 2024-02-03 13:09 | XMS_ITS ---
Author Organization Unknown Address [address] [place] [address] [phone] Phone Care Team Providers Care Machine Sewer Name Role Phone FILEMON DICKERSON Registered Nurse Unavailable BALDEMAR Callaway Attending Unavailable MARIUSZ Zaidi ER Unavailable GISELA Zaidi Primary Unavailable UNLISTED PROVIDER - REQUESTED Xhandoff Un available Results US TESTICULAR - Completed: 0 07/01/2022 15:55 LOINC: [facility] [place], [place] [address] PACS CLAIMS ATTORNEY REPORT Patient Name: NISHIZEESHAN J MRN: Sex: : Age: [id number] M 1965 57 Account: Accession: Admit: StayType: [id number] 07/01/2022 E/R Ordered: Order ID: Submitted: Ordering Provider: 07/01/2022 14:36 [id number] TRAV PARHAM Completed: Technologist: Resulted: 07/01/2022 15:55 GVS 07/01/2022 16:03 Study Description: US TESTICULAR Study Reason: Pain COMPARISON: None. FINDINGS: Right testicle: 4.3 x 2.1 x 2.6 cm Echogenicity: Normal. Contour: Smooth. Mass: None seen. Microlithiasis: None. Hydrocele: None. Variocele: None. Hernia: No peristalsing bowel loop identified. Epididymis: Normal. Left testicle: 4.1 x 2.2 x 3.0 cm Echogenicity: Normal. Contour: Smooth. Mass: None seen. Microlithiasis: None. Hydrocele: None. Variocele: None. Hernia: No peristalsing bowel loop identified. Epididymis: Normal. DOPPLER: Color: Symmetric and uniform, no hyperemia. IMPRESSION: Unremarkable examination. Report Digitally Signed by Mitchell Cunha on 07/01/2022 04:03 PM EST Social History Type Status Start Date End Date Code Code Syst em Smoking History Current every day smoker [address] Sex Male Vital Signs Vital Sign Value Unit Emery Value Emery Unit Date/Time Recent/Initial? Code Code System Body Mass Index 23.88 kg/m2 07/01/2022 14:22 Initial 20066 -5 [facility] Systolic Blood Pressure 162 mm[Hg] 07/01/2022 14:22 Initial 8480- 6 LOINC Diastolic Blood Pressure 97 mm[Hg] 07/01/2022 14:22 Initial 8462- 4 LOINC Body Surface Area 1.69 m2 07/01/2022 14:22 Initial 3140- 1 LOINC Height 162.560 0 cm 64.00 in 07/01/2022 14:22 Initial 8302- 2 LOINC O2 Saturation 98 % 2022 14:22 Initial 28039 -5 LOINC Pulse 97.0 /min 07/01/2022 14:22 Initial 8867- 4 LOINC Respiration 20 /min 07/01/19 14:22 Initial 9279- 1 LOINC Temperature 36.7 Celena 98.1 F 07/01/19 14:22 Initial 8310- 5 LOINC Weight 63.10 kg 139.11 lbs 07/01/2022 14:22 Initial 84115 -7 [facility] Medications Medication Start Date End Date Route Frequency Dose Code Code System Medication Instructions Home Meds SEROquel 100MG Oral Tablet 02/07/2017 Unknown ORAL BEDTIME 100 MILLIGRAMS 449189 RxNorm TAKE 100 MILLIGRAMS ORAL BEDTIME Mapap 325MG Oral Tablet 02/07/2017 3 BY MOUTH NEEDED EVERY 4 HOURS 650 MILLIGRAMS 509810 RxNorm TAKE 650 MILLIGRAMS BY MOUTH NEEDED EVERY 4 HOURS Thera-M Enhanced 90MG-0.03MG -0.15MG-4 Oral Tablet 09/25/2017 Unknown BY MOUTH DAILY WITH FOOD 1 TABLET 346849 RxNorm TAKE 1 TABLET BY MOUTH DAILY WITH FOOD Assessment You had the following problems:PNEUMONIACOPDLYMPHOMABAKER'S CYST OF KNEERIGHT TESTICULAR PAIN Hospital Discharge Instructions Should you have any questions prior to discharge, please contact a member of your healthcare team. If you have left the hospital and have any questions, please contact your primary care physician. Reason For Referral No Data Found Procedures Procedure Name Date Status Code Code Pantera monson Strapping; Knee 07/01/2022 completed 22546 CPT Problems Problem Start Date Resolved Date Status Code Code System PNEUMONIA active 781412217 SNOMED-CT COPD active 28054977 SNOMED-CT LYMPHOMA active 456570605 SNOMED-CT NEFF'S CYST OF KNEE active 876885036 SNOMED-CT RIGHT TESTICULAR PAIN active 73571164 309655784 SNOMED-CT ALCOHOL WITHDRAWAL 09/08/2020 resolved 543686056 SNOMED-CT Allergies and Adverse Reactions Allergy Substance Reaction Severity Start Date Concern Status Co de Code System MIRTAZAPINE Active 79004 RxNorm WELLBUTRIN Seizure (SNOMED-CT: 93506200) Severe Active 78360 RxNorm Plan of Treatment Pre-Op Testing 10/07/2020 Pre-Op Covid-19 Testing 07/04/2020 Pre-Op Covid-19 Testing 06/19/2020 Pre-Op Covid-19 Testing 04/30/2020 Pre-Op Covid-19 Testing 05/03/2020 NM MPI STR/RST 04/14/2023 US RENAL 07/08/2021 X-RAY 06/19/2021 PSG NIGHT 05/05/2021 OUTPATIENT PLAN: Follow up: Please see your doctor in 5-7 days. Other Instructions: Knee immobilizer for comfort, please come out of the immobilizer couple times per day for range of motion of the knee. Please follow-up with your primary care provider for further pain management. Please make sure you follow-up with physical therapy as scheduled. Encounters Encounter Diagnosis Start Date Code Code Sys tem Synovial cyst of popliteal space [Neff], right knee 0 07/01/2022 SNOMED-CT Personal Care Team Section Performer Name Performer Role Active Date Inactive Da te
--- OUTSIDE RECORDS SUMMARY | 2024-02-03 13:09 | XMS_ITS ---
Author Organization Unknown Address [address] [place], [place] [phone] Phone Care Team Providers Care Culture Room Worker Name Role Phone KATLYN Scales Attending Unavailable CATRACHO Jain Primary Unavailable Social History Type Status Start Date End Date Code Code Syst em Smoking History Current every day smoker [address] Sex Male Medications Medication Start Date End Date Route Frequency Dose Code Code System Medication Instructions Home Meds SEROquel 100MG Oral Tablet 02/07/2017 Unknown ORAL BEDTIME 100 MILLIGRAMS 779100 RxNorm TAKE 100 MILLIGRAMS ORAL BEDTIME lamoTRIgine 100MG Oral Tablet 02/07/2017 3 ORAL TWICE A DAY 100 MILLIGRAMS 871341 RxNorm TAKE 100 MILLIGRAMS ORAL TWICE A DAY Mapap 325MG Oral Tablet 02/07/2017 3 BY MOUTH NEEDED EVERY 4 HOURS 650 MILLIGRAMS 989981 RxNorm TAKE 650 MILLIGRAMS BY MOUTH NEEDED EVERY 4 HOURS Thera-M Enhanced 90MG-0.03MG-0 .15MG-4 Oral Tablet 09/25/2017 Unknown BY MOUTH DAILY WITH FOOD 1 TABLET 631731 RxNorm TAKE 1 TABLET BY MOUTH DAILY WITH FOOD EC Naproxen 500MG Oral Tablet, Enteric Coated 04/25/2021 3 ORAL TWICE A DAY 1 TABLET 844781 RxNorm TAKE 1 TABLET ORAL TWICE A [...] Date Status Code Code System PNEUMONIA active 426754084 SNOMED-CT COPD active 54247517 SNOMED-CT LYMPHOMA active 306335535 SNOMED-CT DIAZ'S CYST OF KNEE active 862431706 SNOMED-CT RIGHT TESTICULAR PAIN active 33181491 667444346 SNOMED-CT ALCOHOL WITHDRAWAL 09/08/2020 resolved 283549953 SNOMED-CT Allergies and Adverse Reactions Allergy Substance Reaction Severity Start Date Concern Status Co de Code System MIRTAZAPINE Active 33528 RxNorm WELLBUTRIN Seizure (SNOMED-CT: 29829533) Severe Active 15148 RxNorm Plan of Treatment Pre-Op Testing 10/07/2020 Pre-Op Covid-19 Testing 07/04/2020 Pre-Op Covid-19 Testing 06/19/2020 Pre-Op Covid-19 Testing 04/30/2020 Pre-Op Covid-19 Testing 05/03/2020 NM MPI STR/RST 04/14/2023 US RENAL 07/08/2021 X-RAY 06/19/2021 PSG NIGHT 05/05/2021 Encounters Encounter Diagnosis Start Date Code Code Sys tem Refusal of treatment by patient 01/06/2022 891138197 SNOMED-CT Personal Care Team Section Performer Name Performer Role Active Date Inactive Da yosef
--- OUTSIDE RECORDS SUMMARY | 2024-02-03 13:10 | XMS_ITS ---
Author Organization Unknown Address [address] [place], [place] [phone] Phone Care Team Providers Care Dental Tech Name Role Phone CALOS BAIG Registered Nurse Mike Garcia Attending Unavailable MARIUSZ Zaidi ER Unavailable GISELA Zaidi Primary Unavailable UNLISTED PROVIDER - REQUESTED Xhandoff Un available Social History Type Status Start Date End Date Code Code Syst em Smoking History Current every day smoker [address] Sex Male Vital Signs Vital Sign Value Unit Yolo Value Yolo Unit Date/Time Recent/Initial? Code Code System Body Mass Index 23.17 kg/m2 06/27/2022 18:55 Initial 99484 -5 [facility] Systolic Blood Pressure 149 mm[Hg] 06/27/2022 18:55 Initial 8480- 6 LOINC Diastolic Blood Pressure 92 mm[Hg] 06/27/2022 18:55 Initial 8462- 4 [facility] Body Surface Area 1.66 m2 06/27/2022 18:55 Initial 3140- 1 LOINC Height 162.560 0 cm 64.00 in 06/27/2022 18:55 Initial 8302- 2 INC O2 Saturation 96 % 2022 18:55 Initial 03112 -5 [facility] Pulse 102.0 /min 06/27/2022 18:55 Initial 8867- 4 [facility] Respiration 18 /min 06/27/19 18:55 Initial 9279- 1 LOINC Temperature 36.9 Celena 98.4 F 06/27/19 18:55 Initial 8310- 5 LOINC Weight 61.23 kg 135.00 lbs 06/27/2022 18:55 Initial 53414 -7 [facility] Medications Medication Start Date End Date Route Frequency Dose Code Code System Medication Instructions Home Meds SEROquel 100MG Oral Tablet 02/07/2017 Unknown ORAL BEDTIME 100 MILLIGRAMS 471004 RxNorm TAKE 100 MILLIGRAMS ORAL BEDTIME lamoTRIgine 100MG Oral Tablet 02/07/2017 3 ORAL TWICE A DAY 100 MILLIGRAMS 895279 RxNorm TAKE 100 MILLIGRAMS ORAL TWICE A DAY Mapap 325MG Oral Tablet 02/07/2017 3 BY MOUTH NEEDED EVERY 4 HOURS 650 MILLIGRAMS 959277 RxNorm TAKE 650 MILLIGRAMS BY MOUTH NEEDED EVERY 4 HOURS Thera-M Enhanced 90MG-0.03MG-0 .15MG-4 Oral Tablet 09/25/2017 Unknown BY MOUTH DAILY WITH FOOD 1 TABLET 133879 RxNorm TAKE 1 TABLET BY MOUTH DAILY WITH FOOD EC Naproxen 500MG Oral Tablet, Enteric Coated 04/25/2021 3 ORAL TWICE A DAY 1 TABLET 772068 RxNorm TAKE 1 TABLET ORAL TWICE A [...] Date Status Code Code System PNEUMONIA active 685014021 SNOMED-CT COPD active 15944574 SNOMED-CT LYMPHOMA active 929353317 SNOMED-CT DIAZ'S CYST OF KNEE active 204471013 SNOMED-CT RIGHT TESTICULAR PAIN active 74416378 070833255 SNOMED-CT ALCOHOL WITHDRAWAL 09/08/2020 resolved 612685809 SNOMED-CT Allergies and Adverse Reactions Allergy Substance Reaction Severity Start Date Concern Status Co de Code System MIRTAZAPINE Active 80558 RxNorm WELLBUTRIN Seizure (SNOMED-CT: 98570427) Severe Active 11087 RxNorm Plan of Treatment Pre-Op Testing 10/07/2020 Pre-Op Covid-19 Testing 07/04/2020 Pre-Op Covid-19 Testing 06/19/2020 Pre-Op Covid-19 Testing 04/30/2020 Pre-Op Covid-19 Testing 05/03/2020 NM MPI STR/RST 04/14/2023 US RENAL 07/08/2021 X-RAY 06/19/2021 PSG NIGHT 05/05/2021 Encounters Encounter Diagnosis Start Date Code Code Sys tem Pain in right leg 06/27/2022 SNOMED-CT Personal Care Team Section Performer Name Performer Role Active Date Inactive Da te
--- OUTSIDE RECORDS SUMMARY | 2024-02-03 13:10 | XMS_ITS ---
Author Organization Unknown Address [address] [place] [phone] Phone Care Team Providers Care Sr. Pricing Analyst Name Role Phone CHU Jain Attending Unavailable GISELA Zaidi Primary Unavailable Results CBC W/ DIFFERENTIAL* - Colle ct Date/Time: 09/07/2022 13:15 [facility] ID: [id number] [address] [place], [place], [address] LOINC: 58968-7 Test Value Unit Reference Range Code Code System Flag WBC 11.25 th/cmm L=5.00 H=10.00 6690-2 LOINC H NEUT % 73.1 % L=40.0 H=80.0 LYMPH % 15.6 % L=10.0 H=50.0 MONO % 7.7 % L=2.0 H=12.0 82894-9 LOINC EOS % 2.8 % L=0.0 H=8.0 BASO % 0.5 % L=0.0 H=3.0 IG % 0.3 % L=0.0 H=1.1 2514-8 LOINC NRBC % 0.0 % L=0.0 H=0.0 10944-5 LOINC NEUT abs count 8.2 th/cmm L=1.6 H=8.4 751-8 LOINC LYMPH abs count 1.8 th/cmm L=1.5 H=4.0 731-0 LOINC MONO abs count 0.9 th/cmm L=0.2 H=1.0 742-7 LOINC EOS abs count 0.3 th/cmm L=0.0 H=0.5 711-2 LOINC BASO abs count 0.1 th/cmm L=0.0 H=0.2 704-7 LOINC IG abs count 0.0 th/cmm L=0.0 H=0.1 05765-6 LOINC NRBC abs count 0.0 mil/cmm L=0.0 H=0.0 01580-1 LOINC RBC 4.40 mil/cmm L=4.30 H=6.20 789-8 LOINC HEMOGLOBIN 14.4 gm/dL L=13.0 H=17.0 718-7 LOINC HEMATOCRIT 44 % L=45 H=52 4544-3 LOINC L MCV 99 fL L=82 H=92 787-2 LOINC H MCH 32.7 pg L=27.0 H=31.0 785-6 LOINC H MCHC 33.0 % L=32.0 H=36.0 786-4 LOINC RDW-SD 52.8 fL L=39.0 H=49.0 788-0 LOINC H PLATELET COUNT 407 th/cmm L=150 H=450 777-3 LOINC BASIC METABOLIC PANEL (BMP) - Collect Date/Time: 09/07/2022 13:15 [facility] ID: [id number] [address] [place], [place], [address] LOINC: 66721-1 Test Value Unit Reference Range Code Code System Flag GLUCOSE 110 mg/dL L=70 H=116 2345-7 LOINC BUN 14 mg/dL L=6 H=25 3094-0 LOINC CREATININE 0.84 mg/dL L=0.67 H=1.17 2160-0 LOINC SODIUM SERUM 140 mmol/L L=136 H=145 2951-2 LOINC POTASSIUM SERUM 3.8 mmol/L L=3.4 H=5.2 2823-3 LOINC CHLORIDE SERUM 101 mmol/L L=96 H=110 2075-0 LOINC CARBON DIOXIDE (CO2) 28 mmol/L L=22 H=34 2028-9 LOINC ANION GAP 10.7 mmol/L 39401-9 LOINC CALCIUM SERUM 9.1 mg/dL L=8.2 H=10.2 79387-7 LOINC AGE 57 years eGFR (non-Afr.Amer.) 94 mL/min 62196-5 LOINC eGFR (Afr-Marshallese) 113 mL/min 87088-6 LOINC Social History Type Status Start Date End Date Code Code Syst em Smoking History Current every day smoker [address] Sex Male Medications Medication Start Date End Date Route Frequency Dose Code Code System Medication Instructions Home Meds SEROquel 100MG Oral Tablet 02/07/2017 Unknown ORAL BEDTIME 100 MILLIGRAMS 915976 RxNorm TAKE 100 MILLIGRAMS ORAL BEDTIME Mapap 325MG Oral Tablet 02/07/2017 3 BY MOUTH NEEDED EVERY 4 HOURS 650 MILLIGRAMS 998818 RxNorm TAKE 650 MILLIGRAMS BY MOUTH NEEDED EVERY 4 HOURS Thera-M Enhanced 90MG-0.03MG -0.15MG-4 Oral Tablet 09/25/2017 Unknown BY MOUTH DAILY WITH FOOD 1 TABLET 980635 RxNorm TAKE 1 TABLET BY MOUTH DAILY [...] Date Status Code Code System PNEUMONIA active 715546778 SNOMED-CT COPD active 80437401 SNOMED-CT LYMPHOMA active 441826218 SNOMED-CT DIAZ'S CYST OF KNEE active 106346785 SNOMED-CT RIGHT TESTICULAR PAIN active 52430902 949500161 SNOMED-CT ALCOHOL WITHDRAWAL 09/08/2020 resolved 486398950 SNOMED-CT Allergies and Adverse Reactions Allergy Substance Reaction Severity Start Date Concern Status Co de Code System MIRTAZAPINE Active 91887 RxNorm WELLBUTRIN Seizure (SNOMED-CT: 38656263) Severe Active 87335 RxNorm Plan of Treatment Pre-Op Testing 10/07/2020 Pre-Op Covid-19 Testing 07/04/2020 Pre-Op Covid-19 Testing 06/19/2020 Pre-Op Covid-19 Testing 04/30/2020 Pre-Op Covid-19 Testing 05/03/2020 NM MPI STR/RST 04/14/2023 US RENAL 07/08/2021 X-RAY 06/19/2021 PSG NIGHT 05/05/2021 Encounters Encounter Diagnosis Start Date Code Code Sys tem Pre-surgery evaluation 09/07/2022 136589542 FLACO D-CT Personal Care Team Section Performer Name Performer Role Active Date Inactive Da te
--- OUTSIDE RECORDS SUMMARY | 2024-02-03 13:10 | XMS_ITS ---
Author Organization Unknown Address [address] [place], [place] [phone] Phone Care Team Providers Care Batch Freezer Name Role Phone CHU Jain Attending Unavailable GISELA Zaidi Primary Unavailable Social History Type Status Start Date End Date Code Code Syst em Smoking History Current every day smoker [address] Sex Male Medications Medication Start Date End Date Route Frequency Dose Code Code System Medication Instructions Home Meds SEROquel 100MG Oral Tablet 02/07/2017 Unknown ORAL BEDTIME 100 MILLIGRAMS 639536 RxNorm TAKE 100 MILLIGRAMS ORAL BEDTIME Mapap 325MG Oral Tablet 02/07/2017 3 BY MOUTH NEEDED EVERY 4 HOURS 650 MILLIGRAMS 482458 RxNorm TAKE 650 MILLIGRAMS BY MOUTH NEEDED EVERY 4 HOURS Thera-M Enhanced 90MG-0.03MG -0.15MG-4 Oral Tablet 09/25/2017 Unknown BY MOUTH DAILY WITH FOOD 1 TABLET 838744 RxNorm TAKE 1 TABLET BY MOUTH DAILY [...] Date Status Code Code System PNEUMONIA active 579988145 SNOMED-CT COPD active 44139972 SNOMED-CT LYMPHOMA active 740290509 SNOMED-CT DIAZ'S CYST OF KNEE active 240000658 SNOMED-CT RIGHT TESTICULAR PAIN active 62924962 912090984 SNOMED-CT ALCOHOL WITHDRAWAL 09/08/2020 resolved 077235035 SNOMED-CT Allergies and Adverse Reactions Allergy Substance Reaction Severity Start Date Concern Status Co de Code System MIRTAZAPINE Active 74176 RxNorm WELLBUTRIN Seizure (SNOMED-CT: 54772639) Severe Active 31483 RxNorm Plan of Treatment Pre-Op Testing 10/07/2020 Pre-Op Covid-19 Testing 07/04/2020 Pre-Op Covid-19 Testing 06/19/2020 Pre-Op Covid-19 Testing 04/30/2020 Pre-Op Covid-19 Testing 05/03/2020 NM MPI STR/RST 04/14/2023 US RENAL 07/08/2021 X-RAY 06/19/2021 PSG NIGHT 05/05/2021 Encounters Encounter Diagnosis Start Date Code Code Sys tem 08/24/2022 [id number] SNOMED-CT Personal Care Team Section Performer Name Performer Role Active Date Inactive Geovany navas
--- OUTSIDE RECORDS SUMMARY | 2024-02-03 13:12 | XMS_ITS ---
Author Organization Unknown Address [address] [place] [phone] Phone Care Team Providers Care Cook Pressure Name Role Phone JOSE M KIDD MD Attending Unavailable SABRINA Garcia MD Primary Unavailable Results BASIC METABOLIC PANEL (BMP) - Collect Date/Time: 11/08/2020 23:20 [facility] ID: [id number] [address] [place], [place], [address] LOINC: 57440-1 Test Value Unit Reference Range Code Code System Flag GLUCOSE 107 mg/dL L=70 H=116 2345-7 LOINC BUN 13 mg/dL L=6 H=25 3094-0 LOINC CREATININE 0.78 mg/dL L=0.67 H=1.17 2160-0 LOINC SODIUM SERUM 141 mmol/L L=136 H=145 2951-2 LOINC POTASSIUM SERUM 3.8 mmol/L L=3.4 H=5.2 2823-3 LOINC CHLORIDE SERUM 105 mmol/L L=96 H=110 2075-0 LOINC CARBON DIOXIDE (CO2) 28 mmol/L L=22 H=34 2028-9 LOINC ANION GAP 8.4 mmol/L 91291-8 LOINC CALCIUM SERUM 8.9 mg/dL L=8.2 H=10.2 37564-7 LOINC AGE 55 years eGFR (non-Afr.Amer.) 103 mL/min 30731-1 LOINC eGFR (Afr-Welsh) > 120 mL/min 48267-3 [facility] AD[facility] - Collect Da te/Time: 11/08/2020 23:20 [facility] ID: [id number] [address] [place], [place], [address] LOINC: 55661-2 Test Value Unit Reference Range Code Code System Flag TROPONIN-I < 0.017 ng/mL L=0.000 H=0.060 50117-6 LOINC CBC W/ DIFFERENTIAL - Collec t Date/Time: 11/08/2020 23:20 [facility] ID: [id number] [address] [place], [place], [address] LOINC: 54791-9 Test Value Unit Reference Range Code Code System Flag WBC 11.26 th/cmm L=5.00 H=10.00 6690-2 LOINC H NEUT % 73.1 % L=40.0 H=80.0 LYMPH % 14.8 % L=10.0 H=50.0 MONO % 8.6 % L=2.0 H=12.0 91263-6 LOINC EOS % 2.8 % L=0.0 H=8.0 BASO % 0.4 % L=0.0 H=3.0 IG % 0.3 % L=0.0 H=1.1 2514-8 LOINC NRBC % 0.0 % L=0.0 H=0.0 93518-8 LOINC NEUT abs count 8.2 th/cmm L=1.6 H=8.4 751-8 LOINC LYMPH abs count 1.7 th/cmm L=1.5 H=4.0 731-0 LOINC MONO abs count 1.0 th/cmm L=0.2 H=1.0 742-7 LOINC EOS abs count 0.3 th/cmm L=0.0 H=0.5 711-2 LOINC BASO abs count 0.0 th/cmm L=0.0 H=0.2 704-7 LOINC IG abs count 0.0 th/cmm L=0.0 H=0.1 84060-7 LOINC NRBC abs count 0.0 mil/cmm L=0.0 H=0.0 46436-2 LOINC RBC 3.88 mil/cmm L=4.30 H=6.20 789-8 LOINC L HEMOGLOBIN 11.7 gm/dL L=13.0 H=17.0 718-7 LOINC L HEMATOCRIT 37 % L=45 H=52 4544-3 LOINC L MCV 95 fL L=82 H=92 787-2 LOINC H MCH 30.2 pg L=27.0 H=31.0 785-6 LOINC MCHC 31.9 % L=32.0 H=36.0 786-4 LOINC L RDW-SD 56.1 fL L=39.0 H=49.0 788-0 LOINC H PLATELET COUNT 551 th/cmm L=150 H=450 777-3 LOINC H CHEST PA AND LATERAL 2V - Co mpleted: 11/08/2020 23:22 LOINC: Comparison is made with 09/07. Comparison CT scan is 10/07/20. The heart size and pulmonary vasculature are within normal limits. The tip of the Infuse a port catheter is in good position at the junction of the superior vena cava and right atrium. Chronic interstitial disease is seen within the lungs which appear stable. No acute pulmonary infiltrates are seen. There is stable scarring in the right middle lobe best appreciated on the lateral view. The lungs appear hyperinflated suggesting underlying COPD. No left effusion is seen. There is blunting of the right costophrenic angle which may represent a small effusion. No pneumothorax is identified. Degenerative changes are seen in the spine. There is an old L1 compression fracture deformity. IMPRESSION: 1. No definite acute pulmonary process. 2. COPD. No focal consolidating infiltrate. 3. Blunting of the right costophrenic angle which may represent a small pleural effusion. If there is continued concern, a CT scan of the chest may be considered for further evaluation. Dictated by: WARREN THAKKAR M.D. RADIOLOGIST Transcribed by: LAVERNE 11/10/20/:11 D Tuesday, November 10, 2020 4:20:18 PM [id number] Electronically Reviewed and Signed By: OLY THAKKAR M.D. RADIOLOGIST 11/11/20 12:36 Copy for: JOSE M KIDD MD via modem Copy for: SABRINA Garcia MD via fax DISCHARGED Social History Type Status Start Date End Date Code Code Syst em Smoking History Current every day smoker 110582552 SNOMED CT Smoking History Current every day smoker [id number] Sex Male Medications Medication Start Date End Date Route Frequency Dose Code Code System Medication Instructions Home Meds SEROquel 100MG Oral Tablet 02/07/2017 Unknown ORAL BEDTIME 100 MILLIGRAMS 617479 RxNorm TAKE 100 MILLIGRAMS ORAL BEDTIME lamoTRIgine 100MG Oral Tablet 02/07/2017 3 ORAL TWICE A DAY 100 MILLIGRAMS 694251 RxNorm TAKE 100 MILLIGRAMS ORAL TWICE A DAY Mapap 325MG Oral Tablet 02/07/2017 3 BY MOUTH NEEDED EVERY 4 HOURS 650 MILLIGRAMS 752135 RxNorm TAKE 650 MILLIGRAMS BY MOUTH NEEDED EVERY 4 HOURS Thera-M Enhanced 90MG-0.03MG-0 .15MG-4 Oral Tablet 09/25/2017 Unknown BY MOUTH DAILY WITH FOOD 1 TABLET 795539 RxNorm TAKE 1 TABLET BY MOUTH DAILY WITH FOOD EC Naproxen 500MG Oral Tablet, Enteric Coated 04/25/2021 3 ORAL TWICE A DAY 1 TABLET 571137 RxNorm TAKE 1 TABLET ORAL TWICE A [...] Date Status Code Code System PNEUMONIA active 627932676 SNOMED-CT COPD active 38297772 SNOMED-CT LYMPHOMA active 733982083 SNOMED-CT DIAZ'S CYST OF KNEE active 628442684 SNOMED-CT RIGHT TESTICULAR PAIN active 86962165 702652735 SNOMED-CT ALCOHOL WITHDRAWAL 09/08/2020 resolved 086467820 SNOMED-CT Allergies and Adverse Reactions Allergy Substance Reaction Severity Start Date Concern Status Co de Code System MIRTAZAPINE Active 84917 RxNorm WELLBUTRIN Seizure (SNOMED-CT: 60186473) Severe Active 38651 RxNorm Plan of Treatment Pre-Op Testing 10/07/2020 Pre-Op Covid-19 Testing 07/04/2020 Pre-Op Covid-19 Testing 06/19/2020 Pre-Op Covid-19 Testing 04/30/2020 Pre-Op Covid-19 Testing 05/03/2020 NM MPI STR/RST 04/14/2023 US RENAL 07/08/2021 X-RAY 06/19/2021 PSG NIGHT 05/05/2021 Encounters Encounter Diagnosis Start Date Code Code Sys tem Other chest pain 11/08/2020 SNOMED-CT Personal Care Team Section Performer Name Performer Role Active Date Inactive Da te
--- OUTSIDE RECORDS SUMMARY | 2024-02-03 13:12 | XMS_ITS ---
Author Organization Unknown Address [address] [place], [place] [phone] Phone Care Team Providers Care Control Cabinet Assembler Name Role Phone SCOTT CONSTANTINO Attending Unavailable SABRINA Garcia MD Primary Unavailable Social History Type Status Start Date End Date Code Code Syst em Smoking History Current every day smoker 043918038 SNOMED CT Smoking History Current every day smoker [address] Sex Male Medications Medication Start Date End Date Route Frequency Dose Code Code System Medication Instructions Home Meds SEROquel 100MG Oral Tablet 02/07/2017 Unknown ORAL BEDTIME 100 MILLIGRAMS 446877 RxNorm TAKE 100 MILLIGRAMS ORAL BEDTIME lamoTRIgine 100MG Oral Tablet 02/07/2017 3 ORAL TWICE A DAY 100 MILLIGRAMS 242402 RxNorm TAKE 100 MILLIGRAMS ORAL TWICE A DAY Mapap 325MG Oral Tablet 02/07/2017 3 BY MOUTH NEEDED EVERY 4 HOURS 650 MILLIGRAMS 937528 RxNorm TAKE 650 MILLIGRAMS BY MOUTH NEEDED EVERY 4 HOURS Thera-M Enhanced 90MG-0.03MG-0 .15MG-4 Oral Tablet 09/25/2017 Unknown BY MOUTH DAILY WITH FOOD 1 TABLET 884796 RxNorm TAKE 1 TABLET BY MOUTH DAILY WITH FOOD EC Naproxen 500MG Oral Tablet, Enteric Coated 04/25/2021 3 ORAL TWICE A DAY 1 TABLET 689647 RxNorm TAKE 1 TABLET ORAL TWICE A [...] Date Status Code Code System PNEUMONIA active 066916478 SNOMED-CT COPD active 12651919 SNOMED-CT LYMPHOMA active 204489925 SNOMED-CT DIAZ'S CYST OF KNEE active 565212802 SNOMED-CT RIGHT TESTICULAR PAIN active 38236616 070878128 SNOMED-CT ALCOHOL WITHDRAWAL 09/08/2020 resolved 092972117 SNOMED-CT Allergies and Adverse Reactions Allergy Substance Reaction Severity Start Date Concern Status Co de Code System MIRTAZAPINE Active 12256 RxNorm WELLBUTRIN Seizure (SNOMED-CT: 02655779) Severe Active 27243 RxNorm Plan of Treatment Pre-Op Testing 10/07/2020 Pre-Op Covid-19 Testing 07/04/2020 Pre-Op Covid-19 Testing 06/19/2020 Pre-Op Covid-19 Testing 04/30/2020 Pre-Op Covid-19 Testing 05/03/2020 NM MPI STR/RST 04/14/2023 US RENAL 07/08/2021 X-RAY 06/19/2021 PSG NIGHT 05/05/2021 Encounters Encounter Diagnosis Start Date Code Code Sys tem Lymphocyte-rich Hodgkin lymp shanta, 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
--- OUTSIDE RECORDS SUMMARY | 2024-02-03 13:12 | XMS_ITS ---
Author Organization Unknown Address [address] [place] [phone] Phone Care Team Providers Care Warehouse Worker Name Role Phone LUIS ARMANDO MENDENHALL NP Attending Unavailable SABRINA Garcia MD Primary Unavailable Results MO HAND RIGHT 3V - Completed : 11/22/2020 11:30 LOINC: RIGHT HAND Compared to 06/22/20 wrist images. There is no evidence of fracture in the metacarpals and phalanges. Similar lucent areas are seen in the distal half of the middle phalanges of the 3rd and 4th fingers which have the appearance of benign bone cysts. There is mild narrowing of the proximal interphalangeal joint of the 3rd-middle finger. There is a small 1 mm calcification just lateral to the base of the proximal phalanx of the 3rd-middle finger. No erosions seen at this level nor elsewhere in the bones of the hand. There is no radiopaque foreign body. The previously described findings in the carpal row bones including irregularity of the scaphoid-navicular bone and decrease interosseous distance between the scaphoid and lunate is again noted. Also an element of negative ulnar variance again noted. Dictated by: KAPIL QUINTERO M.D. RADIOLOGIST Transcribed by: EMEKA 11/22/20/13:15 D 11/22/2020 11:51:18 [id number] Electronically Reviewed and Signed By: CHRISTIE QUINTERO M.D. RADIOLOGIST 11/22/20 19:14 Copy for: SABRINA Garcia MD via fax MO KNEE RIGHT 1V OR 2V - Com pleted: 11/22/2020 11:35 LOINC: RIGHT KNEE Compared to 10/29/20. On these weight-bearing views there is no evidence of fracture. Minimal if any significant joint space narrowing evident. There are some degenerative changes in the patellofemoral compartment noted, as best seen on the prior merchant's view. Bone density is normal. There are no significant osseous lesions. Dictated by: CHRISTIE QUINTERO M.D. RADIOLOGIST Transcribed by: [facility] [place] 11/22/20/13:20 D 11/22/2020 11:56:54 [id number] Electronically Reviewed and Signed By: CHRISTIE QUINTERO M.D. RADIOLOGIST 11/22/20 19:15 Copy for: SABRINA Garcia MD via fax Social History Type Status Start Date End Date Code Code Syst em Smoking History Current every day smoker 023135326 SNOMED CT Smoking History Current every day smoker [address] Sex Male Medications Medication Start Date End Date Route Frequency Dose Code Code System Medication Instructions Home Meds SEROquel 100MG Oral Tablet 02/07/2017 Unknown ORAL BEDTIME 100 MILLIGRAMS 389680 RxNorm TAKE 100 MILLIGRAMS ORAL BEDTIME lamoTRIgine 100MG Oral Tablet 02/07/2017 3 ORAL TWICE A DAY 100 MILLIGRAMS 453862 RxNorm TAKE 100 MILLIGRAMS ORAL TWICE A DAY Mapap 325MG Oral Tablet 02/07/2017 3 BY MOUTH NEEDED EVERY 4 HOURS 650 MILLIGRAMS 526985 RxNorm TAKE 650 MILLIGRAMS BY MOUTH NEEDED EVERY 4 HOURS Thera-M Enhanced 90MG-0.03MG-0 .15MG-4 Oral Tablet 09/25/2017 Unknown BY MOUTH DAILY WITH FOOD 1 TABLET 100893 RxNorm TAKE 1 TABLET BY MOUTH DAILY WITH FOOD EC Naproxen 500MG Oral Tablet, Enteric Coated 04/25/2021 3 ORAL TWICE A DAY 1 TABLET 469412 RxNorm TAKE 1 TABLET ORAL TWICE A [...] Procedures Procedure Name Date Status Code Code Syste m Arthrocentesis Aspir&/Inj Ma omid [place] w/o US 11/22/2020 completed CPT Problems Problem Start Date Resolved Date Status Code Code System PNEUMONIA active 012141594 SNOMED-CT COPD active 51754975 SNOMED-CT LYMPHOMA active 192130147 SNOMED-CT DIAZ'S CYST OF KNEE active 004455069 SNOMED-CT RIGHT TESTICULAR PAIN active 48908100 928075506 SNOMED-CT ALCOHOL WITHDRAWAL 09/08/2020 resolved 907833247 SNOMED-CT Allergies and Adverse Reactions Allergy Substance Reaction Severity Start Date Concern Status Co de Code System MIRTAZAPINE Active 16401 RxNorm WELLBUTRIN Seizure (SNOMED-CT: 96471583) Severe Active 45797 RxNorm Plan of Treatment Pre-Op Testing 10/07/2020 Pre-Op Covid-19 Testing 07/04/2020 Pre-Op Covid-19 Testing 06/19/2020 Pre-Op Covid-19 Testing 04/30/2020 Pre-Op Covid-19 Testing 05/03/2020 NM MPI STR/RST 04/14/2023 US RENAL 07/08/2021 X-RAY 06/19/2021 PSG NIGHT 05/05/2021 Encounters Encounter Diagnosis Start Date Code Code Sys tem Unilateral primary osteoarthritis, right knee 11/23/19 21 SNOMED-CT Personal Care Team Section Performer Name Performer Role Active Date Inactive Da yosef
--- OUTSIDE RECORDS SUMMARY | 2024-02-03 13:12 | XMS_ITS ---
Author Organization Unknown Address [address] [place], [place] [phone] Phone Care Team Providers Care Director Of Business Applications Name Role Phone LUIS ARMANDO MENDENHALL NP Attending Unavailable SABRINA Garcia MD Primary Unavailable Social History Type Status Start Date End Date Code Code Syst em Smoking History Current every day smoker 658620833 SNOMED CT Smoking History Current every day smoker [address] Sex Male Medications Medication Start Date End Date Route Frequency Dose Code Code System Medication Instructions Home Meds SEROquel 100MG Oral Tablet 02/07/2017 Unknown ORAL BEDTIME 100 MILLIGRAMS 623700 RxNorm TAKE 100 MILLIGRAMS ORAL BEDTIME lamoTRIgine 100MG Oral Tablet 02/07/2017 3 ORAL TWICE A DAY 100 MILLIGRAMS 138496 RxNorm TAKE 100 MILLIGRAMS ORAL TWICE A DAY Mapap 325MG Oral Tablet 02/07/2017 3 BY MOUTH NEEDED EVERY 4 HOURS 650 MILLIGRAMS 314342 RxNorm TAKE 650 MILLIGRAMS BY MOUTH NEEDED EVERY 4 HOURS Thera-M Enhanced 90MG-0.03MG-0 .15MG-4 Oral Tablet 09/25/2017 Unknown BY MOUTH DAILY WITH FOOD 1 TABLET 433616 RxNorm TAKE 1 TABLET BY MOUTH DAILY WITH FOOD EC Naproxen 500MG Oral Tablet, Enteric Coated 04/25/2021 3 ORAL TWICE A DAY 1 TABLET 255618 RxNorm TAKE 1 TABLET ORAL TWICE A [...] Date Status Code Code System PNEUMONIA active 777685469 SNOMED-CT COPD active 29816680 SNOMED-CT LYMPHOMA active 527435960 SNOMED-CT DIAZ'S CYST OF KNEE active 227487441 SNOMED-CT RIGHT TESTICULAR PAIN active 50042119 239471166 SNOMED-CT ALCOHOL WITHDRAWAL 09/08/2020 resolved 322934322 SNOMED-CT Allergies and Adverse Reactions Allergy Substance Reaction Severity Start Date Concern Status Co de Code System MIRTAZAPINE Active 41564 RxNorm WELLBUTRIN Seizure (SNOMED-CT: 10166196) Severe Active 78159 RxNorm Plan of Treatment Pre-Op Testing 10/07/2020 Pre-Op Covid-19 Testing 07/04/2020 Pre-Op Covid-19 Testing 06/19/2020 Pre-Op Covid-19 Testing 04/30/2020 Pre-Op Covid-19 Testing 05/03/2020 NM MPI STR/RST 04/14/2023 US RENAL 07/08/2021 X-RAY 06/19/2021 PSG NIGHT 05/05/2021 Encounters Encounter Diagnosis Start Date Code Code Sys tem Idiopathic osteoarthritis 01/03/2021 651271514 SN OMED-CT Personal Care Team Section Performer Name Performer Role Active Date Inactive Da te
--- OUTSIDE RECORDS SUMMARY | 2024-02-03 13:13 | XMS_ITS ---
Author Organization Unknown Address [address] [place], [place] [phone] Phone Care Team Providers Care Ecommerce Manager Name Role Phone SHAINA MIKE Attending Unavailable CATRACHO DENT Primary Unavailable Social History Type Status Start Date End Date Code Code Syst em Smoking History Current every day smoker 239464750 SNOMED CT Smoking History Current every day smoker [address] Sex Male Medications Medication Start Date End Date Route Frequency Dose Code Code System Medication Instructions Home Meds SEROquel 100MG Oral Tablet 02/07/2017 Unknown ORAL BEDTIME 100 MILLIGRAMS 858501 RxNorm TAKE 100 MILLIGRAMS ORAL BEDTIME lamoTRIgine 100MG Oral Tablet 02/07/2017 3 ORAL TWICE A DAY 100 MILLIGRAMS 045770 RxNorm TAKE 100 MILLIGRAMS ORAL TWICE A DAY Mapap 325MG Oral Tablet 02/07/2017 3 BY MOUTH NEEDED EVERY 4 HOURS 650 MILLIGRAMS 532485 RxNorm TAKE 650 MILLIGRAMS BY MOUTH NEEDED EVERY 4 HOURS Thera-M Enhanced 90MG-0.03MG-0 .15MG-4 Oral Tablet 09/25/2017 Unknown BY MOUTH DAILY WITH FOOD 1 TABLET 607778 RxNorm TAKE 1 TABLET BY MOUTH DAILY WITH FOOD EC Naproxen 500MG Oral Tablet, Enteric Coated 04/25/2021 3 ORAL TWICE A DAY 1 TABLET 729480 RxNorm TAKE 1 TABLET ORAL TWICE A [...] Date Status Code Code System PNEUMONIA active 535162882 SNOMED-CT COPD active 75829859 SNOMED-CT LYMPHOMA active 858645377 SNOMED-CT DIAZ'S CYST OF KNEE active 267707741 SNOMED-CT RIGHT TESTICULAR PAIN active 10683842 333816158 SNOMED-CT ALCOHOL WITHDRAWAL 09/08/2020 resolved 028883514 SNOMED-CT Allergies and Adverse Reactions Allergy Substance Reaction Severity Start Date Concern Status Co de Code System MIRTAZAPINE Active 64680 RxNorm WELLBUTRIN Seizure (SNOMED-CT: 15246900) Severe Active 19495 RxNorm Plan of Treatment Pre-Op Testing 10/07/2020 Pre-Op Covid-19 Testing 07/04/2020 Pre-Op Covid-19 Testing 06/19/2020 Pre-Op Covid-19 Testing 04/30/2020 Pre-Op Covid-19 Testing 05/03/2020 NM MPI STR/RST 04/14/2023 US RENAL 07/08/2021 X-RAY 06/19/2021 PSG NIGHT 05/05/2021 Encounters Encounter Diagnosis Start Date Code Code Sys tem Generalized idiopathic epile psy and epileptic syndromes, not intractable, without status epilepticus 02/11/2021 SNOMED-CT Personal Care Team Section Performer Name Performer Role Active Date Inactive Da te
--- OUTSIDE RECORDS SUMMARY | 2024-02-03 13:13 | XMS_ITS ---
Author Organization Unknown Address [address] [place], [place] [phone] Phone Care Team Providers Care Director Ehs Name Role Phone KATLYN BURKETT Attending Unavailable SABRINA Garcia MD Primary Unavailable Results MO ELBOW LEFT 3V MIN - Compl eted: 01/27/2021 16:29 LOINC: This is a left elbow. Three views were obtained. There may be a small elbow joint effusion. There is marked soft tissue swelling over the olecranon. No underlying bony abnormality of the olecranon nor is there any other bony abnormality seen involving the elbow. Dictated by: RAF CA M.D. RADIOLOGIST Transcribed by: MELISSA 01/27/2117:28 [id number] Electronically Reviewed and Signed By: CHARLENE CA M.D. RADIOLOGIST 01/28/21 08:33 Copy for: SABRINA Garcia MD via fax MO SHOULDER LEFT 3V - Comple [place]: 01/27/2021 16:29 LOINC: This is a left shoulder. Thr ee views were obtained. There is marked loss of the cartilaginous joint space of the glenohumeral joint with subchondral sclerosis of the adjacent bones. An infusion port overlies the inferior portion of the glenohumeral joint. There are moderate hypertrophic changes at the glenohumeral and acromioclavicular articulations. There is subchondral sclerosis of the glenoid and humeral head. CONCLUSION: Severe DJD of the glenohumeral joint. Dictated by: RAF CA M.D. RADIOLOGIST Transcribed by: MELISSA 01/27/2117:26 [id number] Electronically Reviewed and Signed By: CHARLENE CA M.D. RADIOLOGIST 01/28/21 08:33 Copy for: SABRINA Garcia MD via fax Social History Type Status Start Date End Date Code Code Syst em Smoking History Current every day smoker 637301335 SNOMED CT Smoking History Current every day smoker [address] Sex Male Medications Medication Start Date End Date Route Frequency Dose Code Code System Medication Instructions Home Meds SEROquel 100MG Oral Tablet 02/07/2017 Unknown ORAL BEDTIME 100 MILLIGRAMS 758389 RxNorm TAKE 100 MILLIGRAMS ORAL BEDTIME lamoTRIgine 100MG Oral Tablet 02/07/2017 3 ORAL TWICE A DAY 100 MILLIGRAMS 188042 RxNorm TAKE 100 MILLIGRAMS ORAL TWICE A DAY Mapap 325MG Oral Tablet 02/07/2017 3 BY MOUTH NEEDED EVERY 4 HOURS 650 MILLIGRAMS 457965 RxNorm TAKE 650 MILLIGRAMS BY MOUTH NEEDED EVERY 4 HOURS Thera-M Enhanced 90MG-0.03MG-0 .15MG-4 Oral Tablet 09/25/2017 Unknown BY MOUTH DAILY WITH FOOD 1 TABLET 254218 RxNorm TAKE 1 TABLET BY MOUTH DAILY WITH FOOD EC Naproxen 500MG Oral Tablet, Enteric Coated 04/25/2021 3 ORAL TWICE A DAY 1 TABLET 342738 RxNorm TAKE 1 TABLET ORAL TWICE A [...] Code Syste m Arthrocentesis Aspir&/Inj Ma omid Jt/Bursa w/o US 01/27/2021 completed CPT Problems Problem Start Date Resolved Date Status Code Code System PNEUMONIA active 983427284 SNOMED-CT COPD active 66651701 SNOMED-CT LYMPHOMA active 239619119 SNOMED-CT DIAZ'S CYST OF KNEE active 729408762 SNOMED-CT RIGHT TESTICULAR PAIN active 50811840 951290620 SNOMED-CT ALCOHOL WITHDRAWAL 09/08/2020 resolved 775303002 SNOMED-CT Allergies and Adverse Reactions Allergy Substance Reaction Severity Start Date Concern Status Co de Code System MIRTAZAPINE Active 52041 RxNorm WELLBUTRIN Seizure (SNOMED-CT: 76111709) Severe Active 84245 RxNorm Plan of Treatment Pre-Op Testing 10/07/2020 Pre-Op Covid-19 Testing 07/04/2020 Pre-Op Covid-19 Testing 06/19/2020 Pre-Op Covid-19 Testing 04/30/2020 Pre-Op Covid-19 Testing 05/03/2020 NM MPI STR/RST 04/14/2023 US RENAL 07/08/2021 X-RAY 06/19/2021 PSG NIGHT 05/05/2021 Encounters Encounter Diagnosis Start Date Code Code Sys tem Primary osteoarthritis, left shoulder 01/27/2021 SNOMED-CT Personal Care Team Section Performer Name Performer Role Active Date Inactive Da te
--- OUTSIDE RECORDS SUMMARY | 2024-02-03 13:14 | XMS_ITS | Encounter Summary ---
Author Organization [facility] Address [address] [place] [address] Care Team Providers Care Tool And Die Maker/Designer Name Role Phone Lian Parnell Primary Care Provider [phone] Encounter Details Date Type Department Care Team (Latest Contact Info) Description 06/27/2022 Travel Social History Tobacco Use Types Packs/Day Years Used Date Smoking Tobacco: Every Day Cigarettes 1 45 Smokeless Tobacco: Never Alcohol Use Standard Drinks/Week Comments Yes 0 (1 standard drink = 0.6 oz pure alcohol) 12-24 beers/day, but quit x 6 months ago Interpersonal Safety Answer Date Record ed Physically Hurt Never 12/31/2019 Verbally Threaten Not on file 12/31/2019 Sex and Gender Information Value Date Recorded Sex Assigned at Not on file Gender Identity Male 11/20/2019 11:35 EDT Sexual Orientation Not on file COVID-19 Exposure Response Date Recorded In the last 10 days, have yo u been in contact with someone who was confirmed or suspected to have Coronavirus/COVID-19? No / Unsure 06/27/2022 21:45 EST documented as of this encounter Functional Status Functional Status Response Date of Assess ment Because of a physical, menta l, or emotional condition, does this person have difficulty doing errands alone such as visiting a doctor's office or shopping? Yes 01/31/2015 Cognitive Status Response Date of Assessm ent Because of a physical, menta l, or emotional condition, does this person have serious difficulty concentrating, remembering, or making decisions? Yes 03/23/2019 documented as of this encounter Plan of Treatment Not on file documented as of this encounter Visit Diagnoses Not on filedocumented in this encounter Care Teams Tool And Die Maker/Designer Relationship Specialty Start Date End Date Lian Parnell FNP [address] [place] [address] PCP - General Family Medicine - Primary Care 09/16/21 CHARLENE URISOTEGUI Pulmonary Disease 01/29/21 documented as of this encounter
--- OUTSIDE RECORDS SUMMARY | 2024-02-03 13:14 | XMS_ITS | Encounter Summary ---
Author Organization [facility] Address [address] [place] [address] Care Team Providers Care Steam Turbine Operator Name Role Phone Lian Parnell MUSIC ENGINEER Primary Care Provider [phone] Encounter Details Date Type Department Care Team (Late st Contact Info) Description 09/08/2023 Results Only [facility] Radiation Oncology - [facility] [address] [place] [address] Unknown, Provider, Social History Tobacco Use Types Packs/Day Years Used Date Smoking Tobacco: Every Day Cigarettes 1 45.7 Started: 2023 Smokeless Tobacco: Never Alcohol Use Standard Drinks/Week [...] 11:35 EDT Sexual Orientation Not on file documented as of this encounter Functional Status [...] on file documented as of this encounter Procedures Procedure Name Priority Date/Time Associated Diagnosis Comments RAD ONC ARIA COURSE SUMMARY Routine 09/08/2023 11:27 EDT documented in this encounter Results * RAD ONC ARIA COURSE SUMMARY (09/08/2023 11:27 EDT) Course ID C1 ARIA RADIATION ONCOLOGY Course End Date 09/08/2023 11:27 ARIA RADIATION ONCOLOGY Course First Treatment Date 08/26/2020 11:50 ARIA RADIATION ONCOLOGY Course Last Treatment Date 09/06/2020 12:32 ARIA RADIATION ONCOLOGY Course Elapsed Days 11 ARIA RADIATION ONCOLOGY Reference Point ID LEFT AXILLA ARIA RADIATION ONCOLOGY Reference Point Dosage Given to Date 30 Gy ARIA RADIATION ONCOLOGY Plan ID 1_Left Axilla ARIA RADIATION ONCOLOGY Plan Name 1_Left Axilla ARIA RADIATION ONCOLOGY Plan Fractions Treated to Date 10 ARIA RADIATION ONCOLOGY Plan Total Fractions Prescribed 10 ARIA RADIATION ONCOLOGY Plan Prescribed Dose Per Fraction 3 Gy ARIA RADIATION ONCOLOGY Plan Total Prescribed Dose 3,000 cGy ARIA RADIATION ONCOLOGY Plan Primary Reference Point LEFT AXILLA ARIA RADIATION ONCOLOGY 09/08/2023 11:2 7 EDT Provider Unknown MD RADIATION ONCOLOGY O RDERABLES ARIA RADIATION ONCOLOGY documented in this encounter Visit Diagnoses Not on filedocumented in this encounter Care Teams Steam Turbine Operator Relationship Specialty Start Date End Date Lian Parnell FNP [address] [place] [phone] PCP - General Family Medicine - Primary Care 09/16/21 CHARLENE URIOSTEGUI Pulmonary Disease 01/29/21 documented as of this encounter
--- OUTSIDE RECORDS SUMMARY | 2024-02-03 13:14 | XMS_ITS ---
Author Organization Unknown Address [address] [place], [place] [id number] Phone Care Team Providers Care Supervisor Floor Assembly Name Role Phone BROOK REARDON MD Attending Unavailable SABRINA Garcia MD Primary Unavailable Social History Type Status Start Date End Date Code Code Syst em Smoking History Current every day smoker [id number] SNOMED CT Smoking History Current every day smoker [address] Sex Male Medications Medication Start Date End Date Route Frequency Dose Code Code System Medication Instructions Home Meds SEROquel 100MG Oral Tablet 02/07/2017 Unknown ORAL BEDTIME 100 MILLIGRAMS 748110 RxNorm TAKE 100 MILLIGRAMS ORAL BEDTIME lamoTRIgine 100MG Oral Tablet 02/07/2017 3 ORAL TWICE A DAY 100 MILLIGRAMS 583702 RxNorm TAKE 100 MILLIGRAMS ORAL TWICE A DAY Mapap 325MG Oral Tablet 02/07/2017 3 BY MOUTH NEEDED EVERY 4 HOURS 650 MILLIGRAMS 881061 RxNorm TAKE 650 MILLIGRAMS BY MOUTH NEEDED EVERY 4 HOURS Thera-M Enhanced 90MG-0.03MG-0 .15MG-4 Oral Tablet 09/25/2017 Unknown BY MOUTH DAILY WITH FOOD 1 TABLET 375860 RxNorm TAKE 1 TABLET BY MOUTH DAILY WITH FOOD EC Naproxen 500MG Oral Tablet, Enteric Coated 04/25/2021 3 ORAL TWICE A DAY 1 TABLET 993752 RxNorm TAKE 1 TABLET ORAL TWICE A [...] Name Date Status Code Code Syste m Removal Of Tunneled CVA Amira ce, With Subq Port Or Pump, Central Or Peripheral Insertion 01/30/2021 completed 76258 CPT Problems Problem Start Date Resolved Date Status Code Code System PNEUMONIA active 770620704 SNOMED-CT COPD active 12989195 SNOMED-CT LYMPHOMA active 024911145 SNOMED-CT DIAZ'S CYST OF KNEE active 431478054 SNOMED-CT RIGHT TESTICULAR PAIN active 34891457 028665396 SNOMED-CT ALCOHOL WITHDRAWAL 09/08/2020 resolved 962367763 SNOMED-CT Allergies and Adverse Reactions Allergy Substance Reaction Severity Start Date Concern Status Co de Code System MIRTAZAPINE Active 65866 RxNorm WELLBUTRIN Seizure (SNOMED-CT: 60801578) Severe Active 41016 RxNorm Plan of Treatment Pre-Op Testing 10/07/2020 Pre-Op Covid-19 Testing 07/04/2020 Pre-Op Covid-19 Testing 06/19/2020 Pre-Op Covid-19 Testing 04/30/2020 Pre-Op Covid-19 Testing 05/03/2020 NM MPI STR/RST 04/14/2023 US RENAL 07/08/2021 X-RAY 06/19/2021 PSG NIGHT 05/05/2021 Encounters Encounter Diagnosis Start Date Code Code Sys tem Encounter for adjustment and management of vascular access device 01/30/2021 SNOMED-CT Personal Care Team Section Performer Name Performer Role Active Date Inactive Da te
--- OUTSIDE RECORDS SUMMARY | 2024-02-03 13:14 | XMS_ITS | Encounter Summary ---
Author Organization [facility] Address [address] [place] [address] Care Team Providers Care Relay Motorman Name Role Phone Lian Parnell CREDIT CONTROL OFFICER Primary Care Provider [phone] Reason for Visit * Reason Onset Date Comments Results 11/03/2022 Encounter Details Date Type Department Care Team (Late st Contact Info) Description 11/03/2022 Telephone [facility] [address] [place], [place] [address] Ed Brady MD [address] [facility] [address] [place] [address] Results Social History Tobacco Use Types Packs/Day Years [...] Yes 03/23/2019 documented as of this encounter Miscellaneous Notes * Telephone Encounter - Ed Brady MD - 11/03/2022 1310 EDT Called Hermelinda Darren's partner at his request, to report the recent lab work. The LDH returned normalat 225 and CBC and CMP were without significant abnormality. His WBC was elevated but was also 6 months ago. Testosterone was normal. I did speak with Dr. Stephens today and he agrees with the plan for a PET scan and Dr. Stephens would like to see him after the PET scan. [facility] [place]. documented in this encounter Plan of Treatment Not on file documented as of this encounter Visit Diagnoses Not on filedocumented in this encounter Care Teams Relay Motorman Relationship Specialty Start Date End Date Lian Parnell, [address] [place] [phone] PCP - General Family Medicine - Primary Care 09/16/21 CHARLENE URIOSTEGUI Pulmonary Disease 01/29/21 documented as of this encounter
--- OUTSIDE RECORDS SUMMARY | 2024-02-03 13:14 | XMS_ITS ---
Author Organization Unknown Address [address], [place] [id number] Phone Care Team Providers Care Industrial Cook Name Role Phone KATLYN BURKETT Attending Unavailable CATRACHO DENT Primary Unavailable Social History Type Status Start Date End Date Code Code Syst em Smoking History Current every day smoker 543629638 SNOMED CT Smoking History Current every day smoker [address] Sex Male Medications Medication Start Date End Date Route Frequency Dose Code Code System Medication Instructions Home Meds SEROquel 100MG Oral Tablet 02/07/2017 Unknown ORAL BEDTIME 100 MILLIGRAMS 823498 RxNorm TAKE 100 MILLIGRAMS ORAL BEDTIME lamoTRIgine 100MG Oral Tablet 02/07/2017 3 ORAL TWICE A DAY 100 MILLIGRAMS 747776 RxNorm TAKE 100 MILLIGRAMS ORAL TWICE A DAY Mapap 325MG Oral Tablet 02/07/2017 3 BY MOUTH NEEDED EVERY 4 HOURS 650 MILLIGRAMS 186501 RxNorm TAKE 650 MILLIGRAMS BY MOUTH NEEDED EVERY 4 HOURS Thera-M Enhanced 90MG-0.03MG-0 .15MG-4 Oral Tablet 09/25/2017 Unknown BY MOUTH DAILY WITH FOOD 1 TABLET 315111 RxNorm TAKE 1 TABLET BY MOUTH DAILY WITH FOOD EC Naproxen 500MG Oral Tablet, Enteric Coated 04/25/2021 3 ORAL TWICE A DAY 1 TABLET 717883 RxNorm TAKE 1 TABLET ORAL TWICE A [...] Date Status Code Code System PNEUMONIA active 371036940 SNOMED-CT COPD active 29394789 SNOMED-CT LYMPHOMA active 220341501 SNOMED-CT DIAZ'S CYST OF KNEE active 501764487 SNOMED-CT RIGHT TESTICULAR PAIN active 00224623 028974802 SNOMED-CT ALCOHOL WITHDRAWAL 09/08/2020 resolved 314587833 SNOMED-CT Allergies and Adverse Reactions Allergy Substance Reaction Severity Start Date Concern Status Co de Code System MIRTAZAPINE Active 04137 RxNorm WELLBUTRIN Seizure (SNOMED-CT: 62550539) Severe Active 05804 RxNorm Plan of Treatment Pre-Op Testing 10/07/2020 Pre-Op Covid-19 Testing 07/04/2020 Pre-Op Covid-19 Testing 06/19/2020 Pre-Op Covid-19 Testing 04/30/2020 Pre-Op Covid-19 Testing 05/03/2020 NM MPI STR/RST 04/14/2023 US RENAL 07/08/2021 X-RAY 06/19/2021 PSG NIGHT 05/05/2021 Encounters Encounter Diagnosis Start Date Code Code Sys tem Refusal of treatment by patient 02/24/2021 [id number] SNOMED-CT Personal Care Team Section Performer Name Performer Role Active Date Inactive Geovany navas
--- OUTSIDE RECORDS SUMMARY | 2024-02-03 13:14 | XMS_ITS ---
Author Organization [facility] Address [address] [place] [address] Care Team Providers Care Accounts Executive Name Role Phone Lian Parnell VP OF GLOBAL MARKETING Primary Care Provider [phone] Active Problems Patient Care Coordination No te Formatting of this note migh t be different from the original. 02/10/2023 - Patient has given permission for [facility] Adult Hemo/Onc verbally discuss the following information with *Hermelinda Ramirez* who has the following relationship to the patient: Spouse Purpose: ALL - Permission remains in effect until the patient elects to revoke it. Problem Noted Date Diagnosed Date Severe protein-calorie malnutrition ([facility]) Overview: <75% of estimated energy requirement for > or equal to 1 month, >10% weight loss in 6 months, Mild subcutaneous fat loss and Severe lean muscle loss is consistent with severe protein-calorie malnutrition in the setting of chronic illness (Timmy et al, JPEN J Parenteral Enteral Nutr. 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 Stage IB - 10/31/2019 ultrasound of left axilla showing a 3.2 cm posterior axillary lymph node with vascular hilum. - 11/22/2019 left posterior axillary lymph node measuring 2 cm. Assured patient I do not feel this represents lymphoma or other malignancy. Plan: Follow-up in the CT chest in December be performed for lung cancer screening. Follow-up in clinic 3 months later for reassurance. - 01/24/2020 CT CLD: Stable 6 mm left lower lobe nodule. Diffuse mild centrilobular emphysema. Enlarged morphologically abnormal left axillary lymph node noted short axis I.9 cm. Pathologic lymph node is not excluded. - 03/13/2020 on physical exam persistent 3 x 2 cm left axillary node with a second node measuring 1.[address] [facility] for an excisional biopsy. - 03/19/2020 pathology consistent with classic Hodgkin lymphoma, lymphocyte rich. - 03/25/2020 echocardiogram: LVEF 60 to 65% left ventricular wall thickness normal - 03/26/2020 PET scan. - 03/27/2020 Not good candidate for ABVD due to severe COPD oxygen dependent, still smoking. Recommend R-CHOP x 6 - 04/15/2020 Cycle # 1. Rash at 1 week. Vein pain, Needs Port. Not eating, felt terrible - 04/2020 declined further therapy increased psych issues , refered to Psych. - 05/2020 carpal tunnel worsening, declined therapy until hand surgery, scheduled for 06/14/2020 - 06/22/2020 right carpal tunnel surgery, few days later got infected requiring hospitalization for IV antibiotics. - 07/10/2020 clinic visit. Hand infection improving still on antibiotics. Still poor nutrition eating only 1 meal a day mostly [employer] and caffeine. Plan: Wait until infection resolves completely for port placement and restart therapy. Obtain baseline labs today including IgG and IgM to rule out hypogammaglobulinemia. Needs a restaging PET scan scheduled for 07/16/2020 Panlobular emphysema (HCC-CMS) 06/13/2020 Enlarged lymph node 03/26/2020 Overview: Left axillary enlarged lymph node. - 10/31/2019 ultrasound of left axilla showing a 3.2 cm posterior axillary lymph node with vascular hilum. - 11/22/2019 left posterior axillary lymph node measuring 2 cm. Assured patient I do not feel this represents lymphoma or other malignancy. Plan: Follow-up in the CT chest in December be performed for lung cancer screening. Follow-up in clinic 3 months later for reassurance. - 01/24/2020 CT CLD: Stable 6 mm left lower lobe nodule. Diffuse mild centrilobular emphysema. Enlarged morphologically abnormal left axillary lymph node noted short axis I.9 cm. Pathologic lymph node is not excluded. - 03/13/2020 on physical exam persistent 3 x 2 cm left axillary node with a second node measuring 1.[address] [facility] for an excisional biopsy. Tobacco abuse 11/23/2019 Overview: History of tobacco abuse. - 12/29/2018 CT chest Amair[place]. No malignancy. Left axilla showing a 1.3 cm lymph node shortness axis. - 11/22/2019 2 pack/day for 46 years for total of 42 pack to pack year history. Followed by Dr Donta hernandez in [place]. - Scheduled for a yearly screening CT chest in December. - 01/24/2020 CT CLD: Stable 6 mm left lower lobe nodule. Diffuse mild centrilobular emphysema. Enlarged morphologically abnormal left axillary lymph node noted short axis I 0.9 cm. Pathologic lymph node is not excluded. Low back pain radiating to both legs 05/30/2014 Spells 05/01/2013 Current Oncology Plans No current plan information found. Past Plans No past plan information found. Radiation Treatments * Plan Last Treated On Elapsed Days Fractions Treated Prescribed Fraction Dose Prescribed Total Dose 1_Left Axilla 09/06/2020 11 10 of 10 300 cGy 3,000 cGy Reference Point Last Treated On Elapsed Days Session Dose Total Dose LEFT AXILLA 09/06/2020 11 (Not reported) 3,000 cGy Lifetime Dose Tracking * Chemical Lifetime Dose Automatic Entry Manual Entr y Radiation (DLP) 98.4 mGy-cm 98.4 mGy-cm 0 mGy-cm CTDIvol 2.3 mGy 2.3 mGy 0 mGy
--- OUTSIDE RECORDS SUMMARY | 2024-02-03 13:14 | XMS_ITS | Encounter Summary ---
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] Yes 03/23/2019 documented as of this encounter Progress Notes * Jaxon Stephens MD - 02/25/2023 1330 EDT Hem/Onc. Follow up Note Fran Justin Sr. :1965 Age:57 y.o. Gender:male Date of Service:02/25/2023 History of present illness: 1: Classic Hodgkin lymphoma, lymphocyte rich subtype. Stage IB -10/31/2019 ultrasound of left axilla showing a 3.2 cm posterior axillary lymph node with vascular hilum. -11/22/2019 left posterior axillary lymph node measuring 2 cm. Assured patient I do not feel this represents lymphoma or other malignancy. Plan: Follow-up in the CT chest in December be performed for lung cancer screening. Follow-up in clinic 3 months later for reassurance. - 01/24/2020 CT CAP: Stable 6 mm left lower lobe nodule. Diffuse mild centrilobular emphysema. Enlarged morphologically abnormal left axillary lymph node noted short axis I.9 cm. Pathologic lymph nodeis not excluded. -03/13/2020 on physical exam persistent 3 x 2 cm left axillary node with a second node measuring 1.[address] Brooks for an excisional biopsy. -03/19/2020 pathology consistent with classic Hodgkin lymphoma, lymphocyte rich. -03/25/2020 echocardiogram: LVEF 60 to 65% left ventricular wall thickness normal -03/26/2020 PET scan. -03/27/2020 Not good candidate for ABVD due to severe COPD oxygen dependent, still smoking. Recommend R-CHOP x 6 -04/15/2020 Cycle # 1. Rash at 1 week. Vein pain, Needs Port. Not eating, felt terrible -04/2020 declined further therapy increased psych issues , refered to Psych. -05/2020 carpal tunnel worsening, declined therapy until hand surgery, scheduled for 06/14/2020 -06/22/2020 right carpal tunnel surgery, few days later got infected requiring hospitalization for IV antibiotics. -07/10/2020 clinic visit. Hand infection improving still on antibiotics. Still poor nutrition eatingonly 1 meal a day mostly Coca-Cola and caffeine. Plan: Wait until infection resolves completely forport placement and restart therapy. Obtain baseline labs today including IgG and IgM to rule out hyp ogammaglobulinemia. Needs a restaging PET scan scheduled for 07/16/2020 -09/06/2020 completed radiation to 30 Gy involved left axilla. Dr. Brady. -09/11/[address] [facility]: Right middle lobe pneumonia with empyema requiring pigtail catheter bilaterally. -12/03/2020 consult [facility]: Recommend PET scan in a month or 2 recurrence or persistent diseasebiopsy to confirm. Follow-up with neurology consider rheumatology consultation. Look into the esophagus, needs colonoscopy possible EGD. -12/31/2020 PET scan: 1. Interval resolution of the hypermetabolic left axillary lymph node. 2. New bilateral lung multifocal patchy and nodular opacities demonstrating varying degrees of increased metabolic activity. The largest nodule opacity within the left upper lobe has an SUV of 3.8. Differential includes neoplastic infectious inflammatory. No increased uptake in the esophagus. -01/09/2021 clinically improved since the hospitalization for bilateral pneumonia and empyema. Stillsmoking 1 pack/day, however has been able to gain some weight. Denies B symptoms. Following with Dr. Brady. -11/02/2022 follow-up with Dr. Brady radiation oncology. Complaining of night sweats. Recommended labsand PET scan. -11/02/2022 labs: LDH 225, WBC 12.7, Hgb 15.2, PLT 397. ALC 1.7, comp all within normal range. -02/02/2023 PET: No abnormal increased metabolic activity identified. Pulm emphysema and scattered parenchymal scarring unchanged. -02/09/2023: ?? 2: Right middle lobe pneumonia with empyema -09/11/2020 admitted [address] transfer to [facility] diagnosis of right middle lobe pneumonia and empyema. Pigtail catheter inserted TPA therapy initiated x4 cycles, additional pigtail was placed into more lateral collection. Pleural fluid grew strep milligray sensitive to penicillin treated with Augmentin for6 weeks. Pigtail catheter was removed prior to discharge -Needs follow-up CT chest mid November, referral back to Dr. Marko Jordan thoracic surgery at [facility]. ? 2: History of tobacco abuse. -12/29/2018 CT chest [place]. No malignancy. Left axilla showing a 1.3 cm lymph node shortness axis. - 11/22/2019 2 pack/day for 46 years for total of 42 pack to pack year history. Followed by Dr Donta hernandez in [place]. -Scheduled for a yearly screening CT chest in December. -01/24/2020 CT CLD: Stable 6 mm left lower lobe nodule. Diffuse mild centrilobular emphysema. Enlarged morphologically abnormal left axillary lymph node noted short axis I 0.9 cm. Pathologic lymph node is not excluded. -03/27/2020 Recommend smoke cessation ?? -10/03/2022 low-dose noncontrast CT chest lung screening: Category 2 benign findings. Category S-.Recommend 12-month screening. - Smoking 2 PPD. 3: Abdominal pain. Physical exam ventral hernia, pending ultrasound -03/18/2020 ultrasound right upper quadrant: Negative gallbladder ultrasound no evidence of cholelithiasis. ?? 5: Left axillary infection post excisional biopsy/seroma. 03/2020 ?? Chief Complaint Patient presents with ??? Follow-up Hodgkin lymphoma Interim History: Mr. Justin comes in for follow-up. Last saw him a couple of years ago he has been following with Dr. Capone since August 2020. He comes in today with his . Overall he is doing quite well, unfortunately still smoking several cigarettes a day cannot specifyhow many. Had a PET scan earlier this month with no evidence of lymphoma. He does have some questions and concerns please see review of systems. Review of systems: Review of Systems Constitutional: Positive for diaphoresis (last few month, need to change clothing mostly at night.). Negative for fever and weight loss. Respiratory: Positive for cough, sputum production, shortness of breath and wheezing (inhalers help.). Negative for hemoptysis. Cardiovascular: Negative for chest pain and palpitations. Gastrointestinal: Negative for abdominal pain, nausea and vomiting. Post prandial fatigue feel like crap after eating started 1 month ago. Musculoskeletal: Positive for joint pain (blateral knee pain. Sholuders.). Psychiatric/Behavioral: The patient is nervous/anxious (increasing). Vital Signs: Patient Vitals for the past 24 hrs: BP Temp Pulse SpO2 Weight 02/25/23 1349 116/78 36.3 ??C (97.3 ??F) 81 99 % 61.7 kg (136 lb) Wt Readings from Last 3 Encounters: 02/25/23 61.7 kg (136 lb) 11/02/22 61.3 kg (135 lb 1.6 oz) 06/27/22 61.2 kg (135 lb) Ht Readings from Last 1 Encounters: 03/27/20 162.6 cm (64) Estimated body surface area is 1.67 meters squared as calculated from the following: Height as of 03/27/20: 162.6 cm (64). Weight as of this encounter: 61.7 kg (136 lb). ECOG Performance Status: 0 Physical exam: Physical Exam Constitutional: Appearance: Normal appearance. Eyes: General: No scleral icterus. Cardiovascular: Rate and Rhythm: Normal rate. Pulmonary: Effort: Pulmonary effort is normal. Breath sounds: Rhonchi present. Abdominal: General: Abdomen is flat. Palpations: Abdomen is soft. Musculoskeletal: General: No swelling. Right lower leg: No edema. Left lower leg: No edema. Neurological: General: No focal deficit present. Mental Status: He is alert. Psychiatric: Mood and Affect: Mood normal. Previous medical history: Past Medical History: Diagnosis Date ??? Anxiety ??? Depression ??? Emphysema lung (HCC-CMS) ??? Emphysema of lung (HCC-CMS) ??? ETOH abuse ??? GERD (gastroesophageal reflux disease) ??? 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 Seizures (HCC-CMS) Allergies: Allergies Allergen Reactions ??? Bupropion ??? Wellbutrin [Bupropion Hcl] Seizures per patient Medications: Current Outpatient Medications Medication Sig Dispense Refill Last Dose ??? acetaminophen (TYLENOL) 500 mg tablet Take 2 Tablets by mouth every 6 hours as needed. Taking ??? albuterol (PROVENTIL HFA, VENTOLIN HFA) 90 mcg/Actuation inhaler Inhale 2 Puffs as directed every 4 hours. Taking ??? amoxicillin-clavulanate (AUGMENTIN) 875-125 mg per tablet TAKE ONE TABLET BY MOUTH TWICE A DAY FOR 28 DAYS (Patient not taking: No sig reported) Not Taking ??? ASMANEX TWISTHALER 220 mcg/ actuation (30) inhaler - 30 doses INHALE ONE PUFF BY MOUTH INTO THELUNGS NIGHTLY (Patient not taking: No sig reported) Not Taking ??? buprenorphine-naloxone (SUBOXONE) 2-0.5 mg tablet, sublingual Place 1 Tablet under the tongue daily. (Patient not taking: Reported on 10/16/2021) Not Taking ??? cetirizine (ZYRTEC) 10 mg tablet TAKE ONE TABLET BY MOUTH AT BEDTIME NIGHTLY (Patient not taking: No sig reported) Not Taking ??? cholecalciferol, Vitamin D3, 25 mcg (1,000 unit) tablet Take 1 Tablet by mouth 2 times daily. Taking ??? diclofenac sodium gel APPLY TOPICALLY INSTRUCTED THREE TIMES A DAY Taking ??? DOK 100 mg capsule TAKE ONE CAPSULE BY MOUTH TWICE A DAY FOR 10 DAYS (Patient not taking: No sig reported) Not Taking ??? DULoxetine (CYMBALTA) 60 mg capsule Take by mouth daily. Taking ??? ENSURE liquid DRINK 1 CAN BY MOUTH THREE TIMES A DAY (Patient not taking: Reported on 04/27/2022) Not Taking ??? lamoTRIgine (LAMICTAL) 100 mg tablet Take 1.5 Tablets by mouth 2 times daily. Taking ??? meloxicam (MOBIC) 15 mg tablet Take 1 Tablet by mouth daily. Taking ??? methylphenidate HCl (RITALIN;METHYLIN) 20 mg tablet Take 10 mg by mouth 2 times daily. (Patientnot taking: Reported on 02/25/2023) Not Taking ??? multivitamin capsule Take 1 Capsule by mouth daily. Taking ??? NAPROXEN ORAL Take by mouth daily. (Patient not taking: Reported on 10/16/2021) Not Taking ??? polyethylene glycol (GLYCOLAX) 17 gram/dose powder Take 17 g by mouth daily. (Patient not taking: Reported on 01/09/2021) Not Taking ??? propRANolol (INDERAL) 10 mg tablet Take 1 Tablet by mouth every 8 hours as needed. Taking ??? QUEtiapine (SEROQUEL) 100 mg tablet Take 1 Tablet by mouth daily. Taking ??? tadalafiL (CIALIS) 10 mg tablet Take 2.5 mg by mouth daily. Taking ??? TRELEGY ELLIPTA 100-62.5-25 mcg Inhale 1 Puff as directed daily. Taking ??? VITAMIN B-12 1,000 mcg tablet Take 1 Tablet by mouth daily. Taking No current facility-administered medications for this visit. Data Review: Labs: Results for orders placed or performed in visit on 02/25/23 COMPLETE BLOOD COUNT AND DIFFERENTIAL Result Value Ref Range WBC 9.62 4.00 - 10.40 K/cmm RBC 4.33 (L) 4.36 - 5.78 M/cmm Hemoglobin 14.4 13.8 - 17.3 g/dL HCT 43.5 >=21.0 % MCV 101 (H) 81 - 95 fL MCH 33.3 (H) 27.6 - 33.0 pg MCHC 33.1 32.8 - 36.4 g/dL RDW-CV 13.7 <14.2 % RDW-SD 49.8 (H) <46.0 fl PLT 337 141 - 377 K/cmm MPV 8.3 (L) 9.5 - 12.7 fL % Neutrophils 72.8 % % Lymphocytes 16.4 % % Monocytes 7.9 % % Eosinophils 2.4 % % Basophils 0.5 % % Immature Grans Absolute Neutrophils 7.00 2.20 - 8.85 K/cmm Absolute Lymphocytes 1.58 1.09 - 3.30 K/cmm Absolute Monocytes 0.76 0.10 - 0.80 K/cmm Absolute Eosinophils 0.23 0.03 - 0.61 K/cmm ABS Basophils 0.05 0.01 - 0.11 K/cmm Absolute Immature Grans Type of Differential: Auto COMPREHENSIVE METABOLIC PANEL (CMP) Result Value Ref Range Sodium 134 (L) 136 - 145 mmol/L Potassium 4.3 3.5 - 5.0 mmol/L Chloride 98 96 - 110 mmol/L CO2 Total 31 22 - 32 mmol/L Glucose 117 (H) 70 - 99 mg/dl BUN 12 10 - 26 mg/dL Creatinine 0.77 0.66 - 1.25 mg/dL eGFR 103 >60 mL/min/1.73m2 Total Protein 7.2 6.3 - 8.2 g/dL Albumin 4.1 3.4 - 4.9 g/dL Alkaline Phosphatase 62 38 - 126 U/L AST 26 15 - 46 U/L ALT 21 <50 U/L Bilirubin, Total 0.5 <1.4 mg/dL Calcium 9.4 8.5 - 10.5 mg/dL Albumin/Globulin Ratio 1.3 1.0 - 2.5 g/dL Anion Gap 5 5 - 14 mmol/L SED RATE Result Value Ref Range Sed Rate 24 (H) 0 - 20 mm/hr Imaging: PET CT EYE TO THIGH Narrative: INDICATION: h/o stage IB hodgkins lymphoma L axilla s/p chemo and L axilla radiation 08/2020; Hematologic malignancy, staging; h/o stage IB hodgkins lymphoma L axilla s/p chemo and L axillaradiation 08/2020;C81.44: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 COMPARISON: PET/CT 12/31/2020, low-dose lung CT 10/05/2022. TECHNIQUE: PET/CT was performed from the base of the skull to the mid thighs with a dose of 13.2 mCi of F-18 FDG. Low-dose CT scan was obtained for localization purposes. FINDINGS: Neck/Chest: No abnormal increased metabolic activity is identified within the neck or chest. Abdomen/Pelvis: No abnormal increased metabolic activity is identified within the abdomen or pelvis. Bones: No abnormal increased metabolic activity is identified within the skeleton. Localizing CT: No acute or suspicious abnormalities are identified on limited low-dose localizing CT images. Pulmonary emphysema and scattered parenchymal scar, unchanged. Impression: No abnormal increased metabolic activity identified. [id number] Assessment: 1: Hodgkin lymphoma lymphocyte range. Diagnosis 10/2019 presenting with axillary adenopathy. 55 years of at the time with COPD centrilobular eczema and smoking. Was treated with 1 cycle of CHOP poorly tolerated, proceeded with planned radiation. Restaging PET scan done earlier this month shows no evidence of disease. Review of system has multiple symptoms with night sweats no fevers no weight loss, his white cell count is normal so no evidence of a lymphoproliferative disorder by the PET scan or labs. This month.Thyroid function does not appear to be compromised. Do not have a clear explanation for the night sweats. Also complaining of feeling fatigued tired and not well after eating a large meal, on the PET scan there is no evidence of gastric hypermetabolic lesion, does not have symptoms of acid reflux. No hepatosplenomegaly, be compressing the stomach. Again unclear exactly why he is having the symptoms recommend he split his meals and take them over 3 hours seems better tolerated. No clinical or radiographic evidence of recurrent lymphoma, no evidence of pulmonary malignancy. Plan: -Follow-up in clinic in 6 months. 2: Tobacco abuse. Screening CT chest and PET for restaging lymphoma no evidence of thoracic malignancy. Plan: -Continue to encourage tobacco abstinence, he is not interested in doing so we will continue to smoke tobacco which he rolls on his own so is unclear how much he does smoke. This note was transcribed using Pik[employer] voice recognition software, please excuse any supervisor insecticide errors. Jaxon Stephens MD [facility] CC:Primary Care Provider: Lian Parnell [address] [place] [phone] CC: * Preston Mae RN - 02/25/2023 8720 EDT Procedures: - Venipuncture Performed by: PRESTON MAE RN Site Collected: Left Antecubital Space Volume Withdrawn: LAV EDTA 3.0 mL, [facility] SST 8.5 mL and [place] Heparin ([facility]) 4.0 mL Patient Response:Patient tolerated venipuncture well and 23G Butterfly used Number of attempts: 1 Collected on: 02/25/23 14:00 Supervising Provider: Jaxon Stephens MD documented in this encounter Plan of Treatment Not on file documented as of this encounter Procedures Procedure Name Priority Date/Time Associated Diagnosis Comments SED RATE Routine 02/25/2023 13:54 EDT 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) COMPLETE BLOOD COUNT AND DIFFERENTIAL STAT 02/25/2023 13:54 EDT 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) COMPREHENSIVE METABOLIC PANEL (CMP) STAT 02/25/2023 13:54 EDT 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) documented in this encounter Results * (ABNORMAL) SED RATE (02/25/2023 13:54 EDT) [facility] Sed Rate 24(H) 0 - 20 mm/hr 02/25/2023 14:35 EDT [facility] Blood VENOUS BLOOD / Unknown Venipuncture / Unknown 02/25/2023 13:54 EDT 02/25/2023 13:54 EDT Jaxon Stephens MD HEMATOLOGY & PF4 ORD ERABLES [facility] [address] [place] [address] * (ABNORMAL) COMPREHENSIVE METABOLIC PANEL (CMP) (02/25/2023 13:54 EDT) [facility] Sodium 134(L) 136 - 145 mmol/L 02/25/2023 14:49 EDT [facility] Potassium 4.3 3.5 - 5.0 mmol/L 02/25/2023 14:49 [facility] Chloride 98 96 - 110 mmol/L 02/25/2023 14:49 [facility] CO2 Total 31 22 - 32 mmol/L 02/25/2023 14:49 [facility] Glucose 117(H) 70 - 99 mg/dl 02/25/2023 14:49 [facility] BUN 12 10 - 26 mg/dL 02/25/2023 14:49 [facility] Creatinine 0.77 0.66 - 1.25 mg/dL 02/25/2023 14:49 [facility] eGFR 103 >60 mL/min/1. 73m2 02/25/2023 14:49 [facility] Total Protein 7.2 6.3 - 8.2 g/dL 02/25/2023 14:49 [facility] Comment:The sample was colle cted in a [place] Heparin anticoagulated tube. An average positive bias of 6% with an individual sample bias up to 10% may be observed with heparin plasma results compared to serum results. Albumin 4.1 3.4 - 4.9 g/dL 02/25/2023 14:49 [facility] Alkaline Phosphatase 62 38 - 126 U/L 02/25/2023 14:49 [facility] AST 26 15 - 46 U/L 02/25/2023 14:49 [facility] ALT 21 <50 U/L 02/25/2023 14:49 [facility] Bilirubin, Total 0.5 <1.4 mg/dL 02/25/2023 14:49 [facility] Calcium 9.4 8.5 - 10.5 mg/dL 02/25/2023 14:49 [facility] Albumin/Globulin Ratio 1.3 1.0 - 2.5 g/dL 02/25/2023 14:49 [facility] Anion Gap 5 5 - 14 mmol/L 02/25/2023 14:49 [facility] Blood VENOUS BLOOD / Unknown Venipuncture / Unknown 02/25/2023 13:54 EDT 02/25/2023 13:54 EDT Jaxon Stephens MD CHEMISTRY & BLOOD GA S ORDERABLES [facility] [address] [place] [address] * (ABNORMAL) COMPLETE BLOOD COUNT AND DIFFERENTIAL (02/25/2023 13:54 EDT) WBC 9.62 4.00 - 10.40 K/cmm 02/25/2023 14:04 [facility]3] RBC 4.33(L) 4.36 - 5.78 M/cmm 02/25/2023 14:04 [facility]3] Hemoglobin 14.4 13.8 - 17.3 g/dL 02/25/2023 14:04 [facility]3] HCT 43.5 >=21.0 % 02/25/2023 14:04 [facility] MCV 101(H) 81 - 95 fL 02/25/2023 14:04 T [facility]3] MCH 33.3(H) 27.6 - 33.0 pg 02/25/2023 14:04 [facility] MCHC 33.1 32.8 - 36.4 g/dL 02/25/2023 14:04 [facility] RDW-CV 13.7 <14.2 % 02/25/2023 14:04 [facility] RDW-SD 49.8(H) <46.0 fl 02/25/2023 14:04 [facility] PLT 337 141 - 377 K/cmm 02/25/2023 14:04 [facility] MPV 8.3(L) 9.5 - 12.7 fL 02/25/2023 14:04 [facility]3] % Neutrophils 72.8 % 02/25/2023 14:04 [facility]3] % Lymphocytes 16.4 % 02/25/2023 14:04 [facility]3] % Monocytes 7.9 % 02/25/2023 14:04 [facility]3] % Eosinophils 2.4 % 02/25/2023 14:04 [facility]3] % Basophils 0.5 % 02/25/2023 14:04 [facility]3] % Immature Grans 02/26/20 14:04 [facility] Absolute Neutrophils 7.00 2.20 - 8.85 K/cmm 02/25/2023 14:04 EDT [facility]3] Absolute Lymphocytes 1.58 1.09 - 3.30 K/cmm 02/25/2023 14:04 EDT [facility]3] Absolute Monocytes 0.76 0.10 - 0.80 K/cmm 02/25/2023 14:04 EDT [facility]3] Absolute Eosinophils 0.23 0.03 - 0.61 K/cmm 02/25/2023 14:04 EDT [facility]3] ABS Basophils 0.05 0.01 - 0.11 K/cmm 02/25/2023 14:04 EDT [facility]3] Absolute Immature Grans 02/25/2023 14:04 EDT [facility]3] Type of Differential: Auto 02/25/2023 14:04 EDT [facility]3] Blood VENOUS BLOOD / Unknown Venipuncture / Unknown 02/25/2023 13:54 EDT 02/25/2023 13:54 EDT Jaxon Stephens MD PACKAGES & DNA PROBE ORDERABLES [facility]3] Medical Office [address] documented in this encounter Visit Diagnoses Diagnosis 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 Medication Sig Dispensed Refills Start Date End Date propRANolol (INDERAL) 10 mg tablet Take 1 Tablet by mouth every 8 hours as needed. 06/23/2022 diclofenac sodium gel APPLY TOPICALLY INSTRUCTED THREE TIMES A DAY 09/02/2022 added in this encounter Care Teams [employer] Relationship Specialty Start Date End Date Lian Parnell FNP [address] [place] [phone] PCP - General Family Medicine - Primary Care 09/16/21 CHARLENE URIOSTEGUI Pulmonary Disease 01/29/21 documented as of this encounter
--- OUTSIDE RECORDS SUMMARY | 2024-02-03 13:14 | XMS_ITS | Encounter Summary ---
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) Social History Tobacco Use Types Packs/Day Years Used Date Smoking Tobacco: Every Day Cigarettes 1 45 Smokeless Tobacco: Never Tobacco Cessation:Ready to Q uit: No; Counseling Given: Yes Alcohol Use Standard Drinks/Week Comments Yes 0 [...] Sign Reading Time Taken Comments Blood Pressure 142/70 04/27/2022 1457 EST Pulse 100 04/27/2022 1457 EST Temperature - - Respiratory Rate 16 04/27/2022 1457 EST Oxygen Saturation - - Inhaled Oxygen Concentration - - Weight 63.1 kg (139 lb 1.6 oz) 04/27/[address] Height - - Body Mass Index 23.88 03/27/2020 1518 EDT documented in this encounter [...] as of this encounter Progress Notes * Ed Brady MD - 04/27/2022 1500 EST Images from the original note were not included. Division of Radiation Oncology- FOLLOW-UP NOTE Date of Service: 04/27/2022 Diagnosis/Stage: Cancer Staging No matching staging information was found for the patient. 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 He continues to smoke 2 packs/day currently and has a 45-year history of smoking. The last chest CT 6 months ago did suggest interval chest CT follow-up. Smoking cessation was again counseled but the patient is still not interested in quitting smoking. We reviewed the risk of lung cancer, multiple smoking-related cancers, COPD and oxygen dependence. Recommendations: 1. I have requested a low-dose lung cancer screening CT in 3 months at [facility] 2. Follow-up to review the results is planned. History of Presenting Illness: Fran Justin, who goes by Darren, has Hodgkin's lymphoma of left axilla??s/p??1 cycle of chemotherapy delivered and 30 Gy radiation. ??Medical history includes anxiety, depression, COPD, history of alcohol abuse and seizures. ?? [facility]. ?? Classic Hodgkin lymphoma, lymphocyte rich subtype. Stage IB ??? 12/20/17 CT handy General the patient is a [facility] in follow up left lung noduleand left axilla node. ??A 5 mm RLL nodule was stable. ??A left axillary node was again noted and less prominent compared to the prior CT. ??? 12/29/[address] chest showed a mildly enlarged left axillary node with a short axis diameterof 1.3 cm (2.6 cm wide by my review). ??Moderate central lobular and paraseptal emphysematous changes were seen with no nodules. ??? 10/31/2019 [facility] ultrasound of left axilla showing a 3.2 x 1.1 x 3 cm posterior axillary lymph node with vascular hilum. ??? 03/13/20 Dr. Stephens evaluated him and palpated a 3 x 2 cm left axillary node and a 1.5 cm node.He did not feel this represented lymphoma or other malignancy. Plan: Follow-up in the CT chest in December be performed for lung cancer screening. ??? 01/24/2020 CT: Stable 6 mm left lower lobe nodule. Diffuse mild centrilobular emphysema. Enlarged morphologically abnormal left axillary lymph node noted short axis 1.9 cm (3.4 cm wide by my review). Pathologic lymph node is not excluded. ??? 03/13/2020 Dr. Stephens???s exam revealed a persistent 3 x 2 cm left axillary node with a second node measuring 1.[address] Brooks for an excisional biopsy. ??? 03/19/2020 Nav Brooks?excisional biopsy of left axillary node pathology consistent with classic Hodgkin lymphoma, lymphocyte rich. ??Grossly 5 x 3.5 x 1.5cm specimen. ??? 03/25/2020 echocardiogram: LVEF 60 to 65% left ventricular wall thickness normal ??? 03/26/2020 PET scan. Impression: 1. 5.6 cm centrally necrotic FDG avid left axillary mass, consistent with history of lymphoma. No other FDG avid nodes are detected. The spleen is normal in size.2. Mildly elevated uptake within the distal esophagus. ??Please correlate clinically and consider further assessment with endoscopy. 3. Focally elevated uptake within the cecum and rectum. This is highly nonspecific. Please correlate with colonoscopy. ??? 03/27/2020 Dr. Stephens felt the patient was not good candidate for ABVD due to severe COPD oxygen dependent, still smoking. Recommended??R-CHOP x 6. ??? 04/15/2020 Cycle # 1. Rash at 1 week. Vein pain, Not eating, felt terrible. ??Port access recommended. ??? 04/2020 declined further therapy increased psychiatric issues and referred to Psych. ??? 05/2020 carpal tunnel worsening, declined therapy until hand surgery, scheduled for 06/14/2020 ??? 06/22/2020 Dr. Blanca Naik performed at [facility] right carpal tunnel surgery. ??A few days later the site got infected requiring hospitalization for IV antibiotics. ??? 07/10/[address] Stephens. Hand infection improving still on antibiotics. Still poor nutrition eating only 1 meal a day mostly Coca-Cola and caffeine. Plan: Wait until infection resolves completely for port placement and restart therapy. Restaging PET scan planned. He received 1 dose ofCHOP and shortly thereafter had psychiatric decompensation requiring inpatient management, after discharge was complaining of progressive carpal tunnel pain in the right wrist declined further therapy until that surgery, performed late May. Few days later the wound got infected was admitted to [facility] for IV antibiotics he left AMA before finishing a course. He had been home for about2 weeks with oral antibiotics. ??? 07/24/20 PET IMPRESSION: Interval improvement in the appearance of the left axilla with resolution of large left axillary mass and associated inflammatory change. There are residual small left axillary lymph nodes demonstrating mild increased metabolic activity. ??? He reports that he has been experiencing night sweats for some 8 months or more and they continue. ??He lost approximately 15 pounds over the past many months. ??He is currently without left axillary discomfort or symptoms. ??He is still smoking up to 2 packs/day. ? 09/06/20 completed radiation to the left axilla to 3000 cGy in 10 treatments. ??? 12/31/2020 PET scan ??IMPRESSION: 1. Interval resolution of hypermetabolic left axillary lymph nodes compared to the previous exam.??2. New bilateral lung multifocal patchy and nodular opacities??demonstrating varying degrees of increased metabolic activity. The??largest nodular opacity within the left upper lobe has an SUV max of??3.8. Differential diagnosis includes neoplastic, infectious and??inflammatory processes. Close clinical correlation is needed.??Consider biopsy versus short- term follow-up CT scan as clinically??warranted. ??? 03/10/21 Follow up. He reports he is still smoking up to 2 packs/day of cigarettes. ??He has seen a smoking cessation counselor but at this point has no desire to quit. ??He does have dyspnea on exertion. ??He is aware that COPD is present and that imaging has shown evidence of emphysema. ??? 10/02/21 CT chest abd pelvis. Impression: 1. No lymphadenopathy. No enlarged axillary node at this time. 2. Bandlike left upper lobe opacity. This may reflect postradiation change. However, there is a developing solid nodular component in measuring 7 x 10 mm. Note that this area was FDG avid on the most recent PET/CT. Developing bronchogenic carcinoma cannot be excluded in this high risk patient. Recommend either repeat PET/CT or short term follow up CT. 3. Emphysema. 4. Additional branching tree-in-bud type micronodular opacities in the right upper lobe, likely reflecting a mild infectious/inflammatory process. ?? Interval History: He is seen in the office today with his partner. He reports no B symptoms such as weight loss, night sweats or fevers. He has not noted any lymph node swelling. He continues to smoke 2 packs/day and reports that over his 45 years of smoking he may have smoked closer to 1 pack. He is currently not interested in smoking cessation counseling. He denies hemoptysis and reports some dyspnea on exertionwhich is relatively stable. We reviewed the CT report from September 2021 regarding the recommendation to evaluate a 1 cm nodular opacity. Objective: BP (!) 142/70 (BP Cuff Location: Right arm, BP Patient Position: Sitting) Pulse 100 Resp 16 Wt 63.1 kg (139 lb 1.6 oz) BMI 23.88 kg/m?? Wt Readings from Last 3 Encounters: 10/16/21 60.2 kg (132 lb 12.8 oz) 09/16/21 58.4 kg (128 lb 12.8 oz) 08/12/21 57.6 kg (127 lb) ECOG performance Status: (0) Fully active, able to carry on all predisease performance without restriction I palpate no cervical, supraclavicular, axillary, epitrochlear or inguinal adenopathy. Shotty left inguinal nodes are felt benign. The lungs reveal no rales or rhonchi. Cardiac exam reveals regular rate. Extremities without edema Lab Results: Lab Results Component Value Date WBC 13.13 (H) 05/01/2013 HGB 15.5 05/01/2013 HCT 47.5 05/01/2013 PLT 318 05/01/2013 ALT 25 05/01/2013 AST 31 05/01/2013 NA 141 05/01/2013 K 5.1 (H) 05/01/2013 CL 102 05/01/2013 CREATININE 0.71 09/16/2021 BUN 15 05/01/2013 CO2 24 05/01/2013 TSH 0.73 05/01/2013 PSA 1.5 01/01/2021 Imaging: CT CHEST W CONTRAST, CT ABDOMEN PELVIS W CONTRAST Narrative: INDICATION: right axilla node, s/p radiation left axilla 09/18 for hodgkins dis.; Hematologic malignancy, monitor TECHNIQUE: CT of the chest, abdomen and pelvis was obtained after the administration of intravenouscontrast. Multiplanar reconstruction was generated. COMPARISON: PET/CT 12/31/2020 and 07/23/2020. CT chest 01/24/2020. FINDINGS: CHEST: Lower neck: No abnormalities. Chest wall soft tissues: No abnormalities. Mediastinum and keith: No enlarged mediastinal or hilar lymph nodes. A tiny hiatal hernia is present. Heart and mediastinal vasculature: No abnormalities. Large airways: Moderate diffuse large airways thickening with scattered mucous plugs. Lungs: Bandlike opacity at the periphery of the left midlung. There is a dense nodular component tothis opacity that measures 7 x 10 mm (axial series 205 image 111). On the PET/CT 01/01/2020, there was a bandlike opacity at this location that was FDG avid, but this area now appears more nodular. A developing neoplastic process cannot be excluded. Severe emphysema is present. Scattered branching yuniel e-in-bud type micronodular opacities in the right upper lobe likely reflect a mild infectious/inflammatory process. A 5 mm nodule left lung base is unchanged compared to December 2019 (series 205 [id number]). A few additional sub-6 mm nodules are also unchanged. Pleura: No abnormalities. Bones: Anterior wedging compression deformities at T12 and L1, unchanged since at least December 2019. Healing right lateral 6th rib fracture. No suspicious osseous lesions. ABDOMEN AND PELVIS: Hepatobiliary: No abnormalities. Spleen, pancreas, adrenal glands: No abnormalities. Kidneys, ureters, bladder: Small left renal cysts. Mild diffuse thickening of the urinary bladder wall, nonspecific. Reproductive: Prostate mildly enlarged Bowel: No bowel obstruction or focal bowel wall thickening. Moderate colonic stool burden. Peritoneal cavity / Subperitoneal space: No free fluid or free intraperitoneal air. Lymphovascular: Atherosclerosis. No lymphadenopathy. Abdominal wall: Intact. Musculoskeletal: No acute osseous abnormality. Impression: 1. No lymphadenopathy. No enlarged axillary node at this time. 2. Bandlike left upper lobe opacity. This may reflect postradiation change. However, there is a developing solid nodular component in measuring 7 x 10 mm. Note that this area was FDG avid on the mostrecent PET/CT. Developing bronchogenic carcinoma cannot be excluded in this high risk patient. Recommend either repeat PET/CT or short term follow up CT. 3. Emphysema. 4. Additional branching tree-in-bud type micronodular opacities in the right upper lobe, likely reflecting a mild infectious/inflammatory process. I spent a total of 25 minutes on the date of this encounter meeting with the patient and reviewing documentation/coordinating care as described in the above note. No procedures were performed at the time of the visit. 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 Therapy completed 04/27/2022 ondansetron (ZOFRAN-ODT) [address] ONE TABLET UNDER THE TONGUE EVERY 8 HOURS NEEDED FOR NASUEA VOMITING Therapy completed 04/11/2020 04/27/2022 predniSONE (DELTASONE) 50 mg tablet TAKE TWO TABLETS BY MOUTH EVERY DAY FOR 5 DAYS Therapy completed 04/11/2020 04/27/2022 pregabalin (LYRICA) 200 mg capsule Take 1 Cap by mouth 3 times daily. Therapy completed 02/29/2020 04/27/2022 prochlorperazine (COMPAZINE) 10 mg tablet TAKE ONE TABLET BY MOUTH EVERY 6 HOURS NEEDED FOR NAUSEA VOMITING Therapy completed 05/29/2020 04/27/2022 senna (SENOKOT) 8.6 mg tablet Take 17.2 mg by mouth. Therapy completed 09/17/2020 04/27/2022 sildenafil citrate (VIAGRA) 100 mg tablet Take by mouth daily as needed. Alternate therapy 01/21/2020 04/27/2022 documented as of this encounter Historical Medications * This list may reflect changes made after this encounter. Medication Sig Dispensed Refills Start Date End Date cholecalciferol, Vitamin D3, 25 mcg (1,000 unit) tablet Take 1 Tablet by mouth 2 times daily. added in this encounter Care Teams Sales Representative Uniforms Relationship Specialty Start Date End Date Lian Parnell FNP [address] [place] [phone] PCP - General Family Medicine - Primary Care 09/16/21 CHARLENE URIOSTEGUI Pulmonary Disease 01/29/21 documented as of this encounter
--- OUTSIDE RECORDS SUMMARY | 2024-02-03 13:14 | XMS_ITS | Encounter Summary ---
Author Organization [facility] Address [address] [place] [address] Care Team Providers Care Wood Form Builder Name Role Phone Lian Parnell Primary Care Provider Reason for Referral * Radiology Services (Routine/Next Available) - Authorization Not Required Specialty Diagnoses / Procedures Referred By Contac t Referred To Contact Diagnoses Nicotine dependence, cigarettes, uncomplicated Procedures CT CHEST LOW DOSE LUNG SCREENING Lian Parnell FNP [address] [place] [address] [facility] Referral ID Status Reason Start Date Expiration Date Visits Requested Visits Authorized [id number] Authorization Not Required 09/08/2022 1 1 Reason for Visit * Radiology Services (Routine/Next Available) - Authorization Not Required Specialty Diagnoses / Procedures Referred By Mavis rhodes Referred To Contact Diagnoses Nicotine dependence, cigarettes, uncomplicated Procedures CT CHEST LOW DOSE LUNG SCREENING Lian Parnell FNP [address] [place] [address] [facility] Referral ID Status Reason Start Date Expiration Date Visits Requested Visits Authorized [id number] Authorization Not Required 09/08/2022 1 1 Encounter Details Date Type Department Care Team (Latest Contact Info) Description 10/05/2022 12:56 EDT - 10/05/2022 23:59 EDT Hospital Encounter [facility] CT Scan [address] [place] [address] Nicotine dependence, cigarettes, uncomplicated Discharge Disposition: Home or Self Care Social History Tobacco Use Types Packs/Day Years [...] Yes 03/23/2019 documented as of this encounter Medications at Time of Discharge Medication Sig Dispensed Refills Start Date End Date acetaminophen (TYLENOL) 500 mg tablet Take 2 Tablets by mouth every 6 hours as needed. 09/17/2020 albuterol (PROVENTIL HFA, VENTOLIN HFA) 90 mcg/Actuation inhaler Inhale 2 Puffs as directed every 4 hours. amoxicillin-clavulanate (AUGMENTIN) 875-125 mg per tablet TAKE ONE TABLET BY MOUTH TWICE A DAY FOR 28 DAYS 09/17/2020 ASMANEX TWISTHALER 220 mcg/ actuation (30) inhaler - 30 doses INHALE ONE PUFF BY MOUTH INTO THE LUNGS NIGHTLY 09/18/2020 buprenorphine-naloxone (SUBOXONE) 2-0.5 mg tablet, sublingual Place 1 Tablet under the tongue daily. cetirizine (ZYRTEC) 10 mg tablet TAKE ONE TABLET BY MOUTH AT BEDTIME NIGHTLY 06/03/2020 cholecalciferol, Vitamin D3, 25 mcg (1,000 unit) tablet Take 1 Tablet by mouth 2 times daily. diclofenac sodium gel APPLY TOPICALLY INSTRUCTED THREE TIMES A DAY 09/02/2022 DOK 100 mg capsule TAKE ONE CAPSULE BY MOUTH TWICE A DAY FOR 10 DAYS 09/17/2020 DULoxetine (CYMBALTA) 60 mg capsule Take by mouth daily. 06/26/2020 ENSURE liquid DRINK 1 CAN BY MOUTH THREE TIMES A DAY 06/18/2020 lamoTRIgine (LAMICTAL) 100 mg tablet Take 1.5 Tablets by mouth 2 times daily. 12/19/2019 meloxicam (MOBIC) 15 mg tablet Take 1 Tablet by mouth daily. methylphenidate HCl (RITALIN;METHYLIN) 20 mg tablet Take 0.5 Tablets by mouth 2 times daily. 06/22/2020 multivitamin capsule Take 1 Capsule by mouth daily. NAPROXEN ORAL Take by mouth daily. polyethylene glycol (GLYCOLAX) 17 gram/dose powder Take 17 g by mouth daily. 09/18/2020 propRANolol (INDERAL) 10 mg tablet Take 1 Tablet by mouth every 8 hours as needed. 06/23/2022 QUEtiapine (SEROQUEL) 100 mg tablet Take 1 Tablet by mouth daily. tadalafiL (CIALIS) 10 mg tablet Take 2.5 mg by mouth daily. TRELEGY ELLIPTA 100-62.5-25 mcg Inhale 1 Puff as directed daily. 03/07/2020 VITAMIN B-12 1,000 mcg tablet Take 1 Tablet by mouth daily. 01/23/2020 cephalexin (KEFLEX) 500 mg capsule TAKE ONE CAPSULE BY MOUTH FOUR TIMES A DAY FOR 2 WEEKS 06/25/2020 11/02/2022 cyclobenzaprine (FLEXERIL) 10 mg tablet TAKE ONE TABLET BY MOUTH THREE TIMES A DAY NEEDED FOR MUSCLE SPASMS 09/17/2020 11/02/2022 diazePAM (VALIUM) 5 mg tablet Take 5 mg by mouth 2 times daily. 11/02/2022 doxycycline (ADOXA) 100 mg tablet TAKE ONE TABLET BY MOUTH TWICE A DAY FOR 2 WEEKS 06/25/2020 11/02/2022 DULoxetine (CYMBALTA) 20 mg delayed release capsule Take 20 mg by mouth 2 times daily. 11/02/2022 DULoxetine (CYMBALTA) 30 mg delayed release capsule Take 30 mg by mouth daily. 11/02/2022 famotidine (PEPCID) 20 mg tablet Take 20 mg by mouth at bedtime. 11/02/2022 famotidine (PEPCID) 40 mg tablet Take 40 mg by mouth at bedtime. 11/02/2022 HYDROcodone-acetaminoph en (NORCO) 5-325 mg tablet Take 1-2 Tabs by mouth every 6 hours as needed for Pain. 11/02/2022 HYDROmorphone (DILAUDID) 2 mg tablet TAKE ONE TABLET BY MOUTH EVERY 4 HOURS NEEDED FOR PAIN NOT CONTROLLED BY TYLENOL AND IBUPROFEN 09/17/2020 11/02/2022 melatonin 3 mg tablet Take 6 mg by mouth. 09/17/2020 11/02/2022 NARCAN 4 mg/actuation nasal spray SPRAY 0.1ML INTO ONE NOSTRIL REPEAT WITH SECOND DEVICE INTO THE OTHER NOSTRIL AFTER 2 3 MINUTES IF NO OR MINIMAL RESPONSE 06/14/2020 11/02/2022 nicotine (NICODERM CQ) 21 mg/24 hr patch APPLY ONE PATCH TO THE SKIN EVERY DAY 06/25/2020 11/02/2022 nicotine polacrilex (NICORETTE) 2 mg gum CHEW 1 PIECE OF EVERY 2 HOURS NEEDED 10/04/2020 11/02/2022 nicotine polacrilex (NICORETTE) 4 mg gum CHEW 1 PIECE BY MOUTH EVERY 2 HOURS NEEDED FOR SMOKING CESSATION NOTHING BUT WATER 15 MINUTES BEFORE OR DURING USE 10/01/2020 11/02/2022 oxyCODONE (ROXICODONE) 5 mg immediate release tablet Take 1-2 Tabs by mouth every 3 hours as needed for Pain. 03/14/2020 11/02/2022 pregabalin (LYRICA) 100 mg capsule Take by mouth 3 times daily. 09/17/2020 11/02/2022 triamcinolone (KENALOG) 0.1 % cream APPLY TO AFFECTED AREA S THREE TIMES A DAY NEEDED 05/07/2020 11/02/2022 documented as of this encounter Discharge Disposition Disposition Code Departure Means Destination Home or Self Care documented in this encounter Plan of Treatment Not on file documented as of this encounter Procedures Procedure Name Priority Date/Time Associated Diagnosis Comments CT CHEST LOW DOSE LUNG SCREENING Routine 10/05/2022 13:13 EDT Nicotine dependence, cigarettes, uncomplicated documented in this encounter Results * CT CHEST LOW DOSE LUNG SCREENING (10/05/2022 13:13 EDT) Anatomical Region Laterality Modality Chest Computed Tomogra phy 10/05/2022 14:2 8 EDT Impressions 10/05/2022 14:28 EDT 1. LungRADS Category 2: Benign. ?? 2. LungRADS Category S: Negative. No clinically significant or potentially clinically significant nonlung cancer findings requiring urgent additional evaluation. 3. Incidental findings: As above. RECOMMENDATIONS: Continue annual screening with low-dose CT in 12 months Continued ??low dose CT lung cancer screening should be based upon continued eligibility determined from age and smoking history. This report utilizes the CT Lung Screening Reporting and Data System (ACR LungRADS version 1.1) as below: Category 0: Incomplete (part or all of lung cannot be evaluated, or prior chest CT being located for comparison) Category 1: Negative (no nodules or definitely benign nodules) Category 2: Benign appearance or behavior (nodules with very low likelihood of becoming a clinically active cancer, risk of malignancy <1%) Category 3: Probably benign (probably benign finding - short term follow up suggested, risk of malignancy 1-2%) Category 4: Suspicious (additional diagnostic testing or tissue sampling recommended) Modifiers to Categories 1-4: Category S: Potentially significant ancillary finding requiring urgent additional evaluation. Narrative 10/05/2022 14:[address] CHEST LOW DOSE LUNG SCREENING ??10/05/2022 1:00 PM CLINICAL HISTORY/COMMENTS: SMOKER TECHNIQUE: A single breath-hold helical CT acquisition was performed through the chest on a multidetector-row scanner with a reconstructed slice thickness of 3 mm and retrospectively reconstructed 0.9 mm thick sections with 0.45 mm overlapping intervals. ??The scans were obtained from the lung apices through the bases without IV contrast. Dose was adjusted between 1.0 and 1.5 milliSieverts for low dose screening purposes. Scans were reviewed on a dedicated PACS workstation for analysis. EXAM DESCRIPTION: LOW DOSE CHEST CT FOR LUNG CANCER SCREENING (INITIAL OR FOLLOW-UP). COMPARISON: 10/02/2021. FINDINGS: LUNG SCREENING SPECIFIC (LUNGRADS) FINDINGS: * ??The 9mm mean diameter at the upper lung nodule is unchanged (series 205, image 107). * ??The 5 mm left base nodule is unchanged (series 205, image 265). * ??Additional stable scattered sub-6 mm pulmonary nodules are unchanged. * ??Additional areas of chronic linear scarring are seen in the right middle lobe and left lingula. POTENTIALLY SIGNIFICANT INCIDENTALS (LungRADS Category S): None PULMONARY INCIDENTALS: * ??Severe emphysema. * ??Scattered bronchial wall thickening and secretions. ?? OTHER INCIDENTALS: * ??Mild aortic atherosclerosis. * ??Mild coronary artery calcifications. * ??Thoracolumbar junction kyphosis with chronic appearing mild compression deformities. ACR REPORTABLE INCIDENTALS: None Lian ROSS IMG CT ORDERABLES documented in this encounter Visit Diagnoses Diagnosis Nicotine dependence, cigarettes, uncomplicated documented in this encounter Care Teams Wood Form Builder Relationship Specialty Start Date End Date Lian Parnell FNP [address] [place] [id number] PCP - General Family Medicine - Primary Care 09/16/21 CHARLENE URIOSTEGUI Pulmonary Disease 01/29/21 documented as of this encounter
--- OUTSIDE RECORDS SUMMARY | 2024-02-03 13:14 | XMS_ITS | Encounter Summary ---
Author Organization [facility] Address [address] [place] [address] Care Team Providers Care Forestry Consultant Name Role Phone Lian Parnell SKIVING MACHINE OPERATOR Primary Care Provider [phone] Encounter Details Date Type Department Care Team (Late st Contact Info) Description 06/11/2023 Documentation Visit [facility] Cancer Treatment [place] [address] [place] [address] Krystal Sanchez, RN Social History Tobacco Use Types Packs/Day Years [...] as of this encounter Progress Notes * Krystal Sanchez, RN - 06/11/2023 1151 EST Fran in with his partner to see Dr. Rowan. He is having an off day , he denies any pain or anyspecific complaints. He continues to smoke 2+ PPD and declined an appointment with the smoking cessation counselor. documented in this encounter Plan of Treatment Not on file documented as of this encounter Visit Diagnoses Not on filedocumented in this encounter Care Teams Forestry Consultant Relationship Specialty Start Date End Date Lian Parnell [facility] [address] [place] [phone] PCP - General Family Medicine - Primary Care 09/16/21 CHARLENE URIOSTEGUI Pulmonary Disease 01/29/21 documented as of this encounter
--- OUTSIDE RECORDS SUMMARY | 2024-02-03 13:14 | XMS_ITS | Encounter Summary ---
Author Organization [facility] Address [address] [place] [address] Care Team Providers Care Rabble Furnace Tender Name Role Phone Lian Parnell ENGLISH INSTRUCTOR Primary Care Provider [phone] Reason for Visit * Radiology Services (Routine/Next Available) - Authorization Not Required Specialty Diagnoses / 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) documented in this encounter Visit Diagnoses Not on filedocumented in this encounter Administered Medications Inactive Administered Medications - up to 3 most recent administrations Medication Order MAR Action Action Date Dose Rate Site fludeoxyglucose (F-18) FDG injection 15 millicurie 15 millicurie, radiopharm IV, NOW X1, 1 dose, On Wed02/02/23 at 1030, Routine, Imaging Protocol Orders Given 02/02/2023 10:05 EDT 13.2 millicuries Left [facility]CF documented in this encounter Orders Medications Ordered That Reji ht Not Have Been Administered Count Last Ordered Date First Ordered Date fludeoxyglucose (F-18) FDG i njection 15 millicurie 1 02/02/2023 documented in this encounter Care Teams Rabble Furnace Tender Relationship Specialty Start Date End Date Lian Parnell FNP [address] [place] [address] PCP - General Family Medicine - Primary Care 09/16/21 CHARLENE URIOSTEGUI Pulmonary Disease 01/29/21 documented as of this encounter
--- OUTSIDE RECORDS SUMMARY | 2024-02-03 13:14 | XMS_ITS | Encounter Summary ---
Author Organization [facility] Address [address] [place] [address] Care Team Providers Care Accounts Receivable Bookkeeper Name Role Phone Lian Parnell FARM FIELD MANAGER Primary Care Provider [phone] Reason for Visit * Reason Comments Cancer Encounter Details Date Type Department Care Team (Late st Contact Info) Description 10/16/2021 14:[address] [facility] Cancer Treatment [place] [address] [place] [address] Ed Brady MD [address] [facility] [address] [place] [address] 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 Division of Radiation Oncology- FOLLOW-UP NOTE Date of Service: 10/16/2021 Diagnosis/Stage: Cancer Staging No matching staging information was found for the patient. 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 He was concernedabout pain and possible lymph node swelling in the right axilla. Chest abdomen pelvis CT just performed shows no evidence of concerning adenopathy in the bilateral axillary regions or mediastinum. There is a scarred area in the left upper lateral lung which I feel was within the radiation field treating his axilla and very likely represents postradiation scarring. The patient has an extensive history of smoking and significant emphysema by imaging. He was again counseled to quit smoking which he essentially ignores. He has had significant risk of lung cancer and low-dose CT chest screening atleast yearly is recommended. Recommendations: 1. He continues primary care follow-up in [facility]. 2. 11/21/21 he has follow-up in Pulmonary with Dr. Charlene Uriostegui in [place] at [facility]. I will attempt to forward his CT and PET images to that hospital for his review. 3. Follow-up here in 6 months. 4. I would recommend at least 1 year interval low-dose lung cancer screening CT chest. History of Presenting Illness: Fran Justin, who goes by Darren, has Hodgkin's lymphoma of left axilla s/p 1 cycle of chemotherapy delivered and 30 Gy radiation. Medical history includes anxiety, depression, COPD, history of alcohol abuse and seizures. The records are reviewed [place] [facility] [facility] and Dr. Stephens. ?? Classic Hodgkin lymphoma, lymphocyte rich subtype. Stage IB ?? 12/20/17 CT handy General the patient is a [facility] in follow up left lung nodule and left axilla node. A 5 mm RLL nodule was stable. A left axillary node was again noted and less prominent compared to the prior CT. ?? 12/29/[address] chest showed a mildly enlarged left axillary node with a short axis diameter of 1.3 cm (2.6 cm wide by my review). Moderate central lobular and paraseptal emphysematous changes were seen with no nodules. ?? 10/31/2019 [facility] ultrasound of left axilla showing a 3.2 x 1.1 x 3 cm posterior axillary lymph node with vascular hilum. ?? 03/13/20 Dr. Stephens evaluated him and palpated a 3 x 2 cm left axillary node and a 1.5 cm node. He did not feel this represented lymphoma or other malignancy. Plan: Follow-up in the CT chest in December be performed for lung cancer screening. ?? 01/24/2020 CT: Stable 6 mm left lower lobe nodule. Diffuse mild centrilobular emphysema. Enlargedmorphologically abnormal left axillary lymph node noted short axis 1.9 cm (3.4 cm wide by my review). Pathologic lymph node is not excluded. ?? 03/13/2020 Dr. Stephens???s exam revealed a persistent 3 x 2 cm left axillary node with a second node measuring 1.[address] Brooks for an excisional biopsy. ?? 03/19/2020 Nav Brooks??? excisional biopsy of left axillary node pathology consistent with classic Hodgkin lymphoma, lymphocyte rich. Grossly 5 x 3.5 x 1.5cm specimen. ?? 03/25/2020 echocardiogram: LVEF 60 to 65% left ventricular wall thickness normal ?? 03/26/2020 PET scan. Impression: 1. 5.6 cm centrally necrotic FDG avid left axillary mass, consistent with history of lymphoma. No other FDG avid nodes are detected. The spleen is normal in size. 2. Mildly elevated uptake within the distal esophagus. Please correlate clinically and consider further assessment with endoscopy. 3. Focally elevated uptake within the cecum and rectum. This is highly nonspecific. Please correlate with colonoscopy. ?? 03/27/2020 Dr. Stephens felt the patient was not good candidate for ABVD due to severe COPD oxygendependent, still smoking. Recommended R-CHOP x 6. ?? 04/15/2020 Cycle # 1. Rash at 1 week. Vein pain, Not eating, felt terrible. Port access recommended. ?? 04/2020 declined further therapy increased psychiatric issues and referred to Psych. ?? 05/2020 carpal tunnel worsening, declined therapy until hand surgery, scheduled for 06/14/2020 ?? 06/22/2020 Dr. Blanca Naik performed at [facility] right carpal tunnel surgery. A few days later thesite got infected requiring hospitalization for IV antibiotics. ?? 07/10/[address] Stephens. Hand infection improving still on antibiotics. Still poor nutrition eating only 1 meal a day mostly Coca-Cola and caffeine. Plan: Wait until infection resolves completely for port placement and restart therapy. Restaging PET scan planned. He received 1 dose of CHOP and shortly thereafter had psychiatric decompensation requiring inpatient management, after discharge was complaining of progressive carpal tunnel pain in the right wrist declined further therapyuntil that surgery, performed late May. Few days later the wound got infected was admitted to [facility] for IV antibiotics he left AMA before finishing a course. He had been home for about 2 weeks with oral antibiotics. ?? 07/24/20 PET IMPRESSION: Interval improvement in the appearance of the left axilla with resolution of large left axillary mass and associated inflammatory change. There are residual small left axillary lymph nodes demonstrating mild increased metabolic activity. ?? He reports that he has been experiencing night sweats for some 8 months or more and they continue. He lost approximately 15 pounds over the past many months. He is currently without left axillary discomfort or symptoms. He is still smoking up to 2 packs/day. ?? 09/06/20 completed radiation to the left axilla to 3000 cGy in 10 treatments. ?? 12/31/2020 PET scan IMPRESSION: 1. Interval resolution of hypermetabolic left axillary lymph nodes compared to the previous exam. 2. New bilateral lung multifocal patchy and nodular opacities demonstrating varying degrees of increased metabolic activity. The largest nodular opacity within the left upper lobe has an SUV max of 3.8. Differential diagnosis includes neoplastic, infectious and inflammatory processes. Close clinical correlation is needed. Consider biopsy versus short-term follow-up CT scan as clinically warranted. ?? 03/10/21 Follow up. He reports he is still smoking up to 2 packs/day of cigarettes. He has seen a smoking cessation counselor but at this point has no desire to quit. He does have dyspnea on exertion. He is aware that COPD is present and that imaging has shown evidence of emphysema. ?? 10/02/21 CT chest abd pelvis. Impression: 1. No lymphadenopathy. No enlarged axillary node at thistime. 2. Bandlike left upper lobe opacity. This may reflect postradiation change. However, there mode developing solid nodular component in measuring 7 x 10 mm. Note that this area was FDG avid on the most recent PET/CT. Developing bronchogenic carcinoma cannot be excluded in this high risk patient. Recommend either repeat PET/CT or short term follow up CT. 3. Emphysema. 4. Additional branching tree-in-bud type micronodular opacities in the right upper lobe, likely reflecting a mild infectious/inflammatory process. Interval History: He is seen in follow-up today with his . Chest CT was reviewed with regard to his concerns about right axillary swelling. There is no significant adenopathy in the left or right axilla. The CT does show a developing somewhat solid nodular 7 x 10 mm density in the left upper lung which is bandlike. In reviewing his left axillary clary radiation field that portion of the lung was included and likely represents postradiation changes. On the December 2020 PET scan there is also slight FDG uptake in that same location which would have been within the edge of the radiation field as well. He reports no significant cough or hemoptysis. He continues to smoke at least 1 pack/day. His reports that he has pulmonary medicine follow-up in [facility] with Dr. Charlene Uriostegui in October. Pain Score (from Vitals) 09/16/2021 Initial score - Final score 0 Location - Comment - Objective: Vitals: 10/16/21 1347 10/16/21 1348 BP: 140/71 BP Cuff Location: Right arm Pulse: 101 Weight: 60.2 kg (132 lb 12.8 oz) 60.2 kg (132 lb 12.8 oz) Wt Readings from Last 3 Encounters: 09/16/21 58.4 kg (128 lb 12.8 oz) 01/09/21 57.6 kg (127 lb) 10/09/20 55 kg (121 lb 4.1 oz) ECOG performance Status: (1) Restricted in physically strenuous activity, ambulatory and able to dowork of light nature I palpate no cervical, supraclavicular or axillary adenopathy. He has slight tenderness in the right axilla where there is perhaps a 5 mm node which rolls on the underlying rib as he is quite thin. There is no adenopathy or mass felt lungs are clear. Lab Results: Lab Results Component Value Date [...] unchanged compared to December 2019 (series 205 [id number]). A few additional sub-6 mm nodules are [...] infectious/inflammatory process. I spent a total of 30 minutes on the date of this encounter meeting with the patient and reviewing documentation/coordinating care as described in the above note. No procedures were performed at the time of the visit. 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 Medication Sig Dispensed Refills Start Date End Date diazePAM (VALIUM) 5 mg tablet Take 5 mg by mouth 2 times daily. 11/02/2022 added in this encounter Care Teams Accounts Receivable Bookkeeper Relationship Specialty Start Date End Date Lian Parnell FNP [address] [place] [phone] PCP - General Family Medicine - Primary Care 09/16/21 CHARLENE URIOSTEGUI Pulmonary Disease 01/29/21 documented as of this encounter
--- OUTSIDE RECORDS SUMMARY | 2024-02-03 13:14 | XMS_ITS | Encounter Summary ---
Author Organization [facility] Address [address] [place] [address] Care Team Providers Care Plasticator Name Role Phone Lian Parnell GOLF TECHNICIAN Primary Care Provider [phone] Reason for Visit * Reason Onset Date Comments Appointment Related 12/11/2022 Encounter Details Date Type Department Care Team (Late st Contact Info) Description 12/11/2022 Telephone [facility] Hematology & Oncology [address] [place] [phone] Jaxon Stephens MD [address] [place] [address] [address] [place] [phone] Appointment Related Social History Tobacco Use Types Packs/Day Years [...] encounter Miscellaneous Notes * Telephone Encounter - Maria R Macdonald - 12/12/2022 1036 EDT Pt returned call, appt scheduled, pt aware. * Telephone Encounter - Maria R Macdonald - 12/11/2022 1628 EDT Left pt message to call regarding the PET scan and follow up appt with Dr Stephens. documented in this encounter Plan of Treatment Not on file documented as of this encounter Visit Diagnoses Not on filedocumented in this encounter Care Teams Plasticator Relationship Specialty Start Date End Date Lian Parnell FNP [address] [place] [phone] PCP - General Family Medicine - Primary Care 09/16/21 CHARLENE URIOSTEGUI Pulmonary Disease 01/29/21 documented as of this encounter
--- OUTSIDE RECORDS SUMMARY | 2024-02-03 13:14 | XMS_ITS | Encounter Summary ---
Author Organization [facility] Address [address] [place] [address] Care Team Providers Care Vp Integrity Name Role Phone Lian Parnell INSPECTING AND TESTING LEAD HAND Primary Care Provider [phone] Reason for Visit * Reason Onset Date Comments Results 02/10/2023 Appointment Related 02/10/2023 Encounter Details Date Type Department Care Team (Late st Contact Info) Description 02/10/2023 Telephone [facility] [address] [place] [phone] Jaxon Stephens MD [address] [place] [address] [address] [place] [phone] Results; Appointment Related Social History Tobacco Use Types [...] encounter Miscellaneous Notes * Telephone Encounter - Melita Hammer RN - 02/15/2023 0910 EDT 02/15/23 9:10 Called patient - voicemail was full. Will try and reach him later today 02/16/23 9:11 Second attempt to contact, voicemail still full 02/17/23 11:38 Spoke with patient on third call attempt. Relayed PET scan results. Patient verbalized understanding and confirmed upcoming appointment on 02/25/[address] Stephens * Telephone Encounter - Jaxon Stephens MD - 02/12/2023 1642 EDT PET scan negative. Gave Fran a call with the good results. We will follow-up as scheduled. Thank you * Telephone Encounter - Melita Hammer RN - 02/10/2023 1240 EDT 02/10/23 12:45 unable to leave message, patient's mailbox full. Spoke with Hermelinda and patient was rescheduled for 02/25/23 to accommodate for labs that Dr. Stephens hadordered for missed appointment on 02/09/23 Dr. Stephens - would you like to relay PET Scan results to patient in the meantime or do you prefer to review with patient in person at 02/25/23 follow-up? * Telephone Encounter - Caryn Irizarry - 02/10/2023 1120 EDT PT missed his appointment yesterday and is wondering if Dr. Stephens could call him to go over his PET scan results. Okay to talk to Hermelinda documented in this encounter Plan of Treatment Not on file documented as of this encounter Visit Diagnoses Not on filedocumented in this encounter Care Teams Vp Integrity Relationship Specialty Start Date End Date Lian Parnell FNP [address] [place] [phone] PCP - General Family Medicine - Primary Care 09/16/21 CHARLENE URIOSTEGUI Pulmonary Disease 01/29/21 documented as of this encounter
--- OUTSIDE RECORDS SUMMARY | 2024-02-03 13:14 | XMS_ITS | Encounter Summary ---
Author Organization [facility] Address [address] [place] [address] Care Team Providers Care Real Estate Loan Officer Name Role Phone Lian Parnell CAUSTIC ROOM ATTENDANT Primary Care Provider [phone] Encounter Details Date Type Department Care Team (Late st Contact Info) Description 10/16/2021 Documentation Visit [facility] Radiation Oncology [facility] [address] [place] [address] Krystal Sanchez, RN Social History Tobacco Use [...] Progress Notes * Krystal Sanchez, RN - 10/16/2021 1410 EDT Darren in for a follow up with Dr. Brady. He states he is having left shoulder pain, that is chronic in nature. He also is c/o a lump in his right axilla that he is concerned about. documented in this encounter Plan of Treatment Not on file documented as of this encounter Visit Diagnoses Not on filedocumented in this encounter Care Teams Real Estate Loan Officer Relationship Specialty Start Date End Date Lian Parnell FNP [address] [place] [phone] PCP - General Family Medicine - Primary Care 09/16/21 CHARLENE URIOSTEGUI Pulmonary Disease 01/29/21 documented as of this encounter
--- OUTSIDE RECORDS SUMMARY | 2024-02-03 13:14 | XMS_ITS | Encounter Summary ---
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) Social History Tobacco Use Types Packs/Day Years Used Date Smoking Tobacco: Every Day Cigarettes 1 45.7 Started: 2023 Smokeless Tobacco: Never Tobacco Cessation:Ready to Q uit: Not Asked; Counseling Given: Not Answered Alcohol Use Standard Drinks/Week Comments Yes 0 [...] Sign Reading Time Taken Comments Blood Pressure 159/70 06/11/2023 1137 EST Pulse 82 06/11/2023 1137 EST Temperature - - Respiratory Rate - - Oxygen Saturation - - Inhaled Oxygen Concentration - - Weight 62.1 kg (137 lb) 06/11/2023 1137 EST Height - - Body Mass Index 23.52 03/27/2020 1518 EDT documented in this encounter [...] of this encounter Progress Notes * Krystal Sanchez RN - 06/11/2023 1115 EST Images from the original note were not included. Documentation Visit 06/11/2023 [facility] Krystal Sanchez, RN Progress Notes Krystal Sanchez RN (Registered Nurse) Radiation Oncology [place] in with his partner to see Dr. Rowan. He is having an off day , he denies any pain or anyspecific complaints. He continues to smoke 2+ PPD and declined an appointment with the smoking cessation counselor. Additional Documentation Encounter Info: Billing Info, History, Allergies, Detailed Report Pharmacy Benefits [employer] 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
--- OUTSIDE RECORDS SUMMARY | 2024-02-03 13:14 | XMS_ITS | Referral Summary ---
Author Organization [facility] Address [address] [place] [address] Care Team Providers Care Extrusion Line Operator Name Role Phone Lian Parnell DRIVER RECRUITER Primary Care Provider [phone] Allergies Active Allergy Reactions Criticality Noted Date Comments Bupropion 09/11/2020 Bupropion Hcl 03/23/2019 Seizures per patient Medications Medication Sig Dispensed Refills Start Date End Date Status albuterol (PROVENTIL HFA, VENTOLIN HFA) 90 mcg/Actuation inhaler Inhale 2 Puffs as directed every 4 hours. Active NAPROXEN ORAL Take by mouth daily. A ctive lamoTRIgine (LAMICTAL) 100 mg tablet Take 1.5 Tablets by mouth 2 times daily. 12/19/2019 Active TRELEGY ELLIPTA 100-62.5-25 mcg Inhale 1 Puff as directed daily. 03/07/2020 Active VITAMIN B-12 1,000 mcg tablet Take 1 Tablet by mouth daily. 01/23/2020 Active QUEtiapine (SEROQUEL) 100 mg tablet Take 1 Tablet by mouth daily. Active meloxicam (MOBIC) 15 mg tablet Take 1 Tablet by mouth daily. Active cetirizine (ZYRTEC) 10 mg tablet TAKE ONE TABLET BY MOUTH AT BEDTIME NIGHTLY 06/03/2020 Active ENSURE liquid DRINK 1 CAN BY MOUTH THREE TIMES A DAY 06/18/2020 Active DULoxetine (CYMBALTA) 60 mg capsule Take by mouth daily. 06/26/2020 Acti ve methylphenidate HCl (RITALIN;METHYLIN) 20 mg tablet Take 0.5 Tablets by mouth 2 times daily. 06/22/2020 Active multivitamin capsule Take 1 Capsule by mouth daily. Active acetaminophen (TYLENOL) 500 mg tablet Take 2 Tablets by mouth every 6 hours as needed. 09/17/2020 Active amoxicillin-clavulan ate (AUGMENTIN) 875-125 mg per tablet TAKE ONE TABLET BY MOUTH TWICE A DAY FOR 28 DAYS 09/17/2020 Active DOK 100 mg capsule TAKE ONE CAPSULE BY MOUTH TWICE A DAY FOR 10 DAYS 09/17/2020 Active ASMANEX TWISTHALER 220 mcg/ actuation (30) inhaler - 30 doses INHALE ONE PUFF BY MOUTH INTO THE LUNGS NIGHTLY 09/18/2020 Active polyethylene glycol (GLYCOLAX) 17 gram/dose powder Take 17 g by mouth daily. 09/18/2020 Active buprenorphine-naloxo ne (SUBOXONE) 2-0.5 mg tablet, sublingual Place 1 Tablet under the tongue daily. Active tadalafiL (CIALIS) 10 mg tablet Take 2.5 mg by mouth daily. Active cholecalciferol, Vitamin D3, 25 mcg (1,000 unit) tablet Take 1 Tablet by mouth 2 times daily. Active diclofenac sodium gel APPLY TOPICALLY INSTRUCTED THREE TIMES A DAY 09/02/2022 Active propRANolol (INDERAL) 10 mg tablet Take 1 Tablet by mouth every 8 hours as needed. 06/23/2022 Active Active Problems Patient Care Coordination No te Formatting of this note migh t be different from the original. 02/10/2023 - Patient has given permission for [facility] Adult Hemo/Onc verbally discuss the following information with *Hermelinda Ramirez* who has the following relationship to the patient: Spouse Purpose: ALL - Permission remains in effect until the patient elects to revoke it. Problem Noted Date Diagnosed Date Severe protein-calorie malnutrition ([facility]) Overview: <75% of estimated energy requirement for > or equal to 1 month, >10% weight loss in 6 months, Mild subcutaneous fat loss and Severe lean muscle loss is consistent with severe protein-calorie malnutrition in the setting of chronic illness (Timmy connors al, JPEN J Parenteral Enteral Nutr. 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 Followed by Dr Donta hernandez in [place]. - Scheduled for a yearly screening CT chest in December. - 01/24/2020 CT CLD: Stable 6 mm left lower lobe nodule. Diffuse mild centrilobular emphysema. Enlarged morphologically abnormal left axillary lymph node noted short axis I 0.9 cm. Pathologic lymph node is not excluded. Low back pain radiating to both legs 05/30/2014 Spells 05/01/2013 Social History Tobacco Use Types Packs/Day Years [...] 11:35 EDT Sexual Orientation Not on file Last Filed Vital Signs Vital Sign Reading Time Taken Comments Blood Pressure 159/70 06/11/2023 1137 EST Pulse 82 06/11/2023 1137 EST Temperature 36.3 ??C (97.3 ??F) 02/25/2023 1349 EDT Respiratory Rate 16 11/02/2022 1450 EDT Oxygen Saturation 99% 02/25/2023 1349 EDT Inhaled Oxygen Concentration - - Weight 62.1 kg (137 lb) 06/11/2023 1137 EST Height 162.6 cm (5' 4) 03/27/2020 1518 EDT Body Mass Index 23.52 03/27/2020 1518 EDT Functional Status Functional Status Response Date of [...] concentrating, remembering, or making decisions? Yes 03/23/2019 Plan of Treatment Not on file Procedures Procedure Name Priority Date/Time Associated Diagnosis Comments CT CHEST LOW DOSE LUNG SCREENING Routine 10/05/2022 13:13 EDT Nicotine dependence, cigarettes, uncomplicated HEPATITIS C AB W REFLEX TO HCV RNA BY PCR Routine 09/02/2021 15:40 EDT from Last 3 Months or Most Recently Relevant to Health Maintenance Results * CT CHEST LOW DOSE LUNG [...] compression deformities. ACR REPORTABLE INCIDENTALS: None Lian Dyan Soheila [facility] IMG CT ORDERABLES * HEPATITIS C AB W REFLEX TO HCV RNA BY PCR (09/02/2021 15:40 EDT) Hep C Antibody Negative Negative 09/03/2021 11:21 EDT [facility] Blood VENOUS BLOOD / Unknown 09/02/2021 15:40 EDT 09/02/2021 21:42 EDT Provider Outr Resulting Lab CHEMISTRY & BLOOD GAS ORDERABLES [facility] [address] [place] [address] from Last 3 Months or Most Recently Relevant to Health Maintenance Advance Directives For more information, please contact: [phone] * Full Code (Latest Code Status on File) Date Activated Date Inactivated Comments 05/01/2013 15:29 05/05/2013 15:55 Care Teams Extrusion Line Operator Relationship Specialty Start Date End Date Lian Parnell FNP [address] [place] [address] PCP - General Family Medicine - Primary Care 09/16/21 CHARLENE URIOSTEGUI Pulmonary Disease 01/29/21
--- OUTSIDE RECORDS SUMMARY | 2024-02-03 13:14 | XMS_ITS | Clinical Summary ---
Author Organization [facility] Address [address] [place] [address] Care Team Providers Care Cdl Instructor Name Role Phone Lian Parnell ASSEMBLY INSTRUCTIONS WRITER Primary Care Provider [phone] Allergies Active Allergy Reactions Criticality Noted Date [...] 02/10/2023 - Patient has given permission for [facility] Adult Hemo/Onc verbally discuss the following information with *Hermelinda Ramirez* who has the following relationship to the patient: Spouse Purpose: ALL - Permission remains in effect until the patient elects to revoke it. Problem Noted Date Diagnosed Date Severe protein-calorie malnutrition ([facility]) Overview: <75% of estimated energy requirement for > or equal to 1 month, >10% weight loss in 6 months, Mild subcutaneous fat loss and Severe lean muscle loss is consistent with severe protein-calorie malnutrition in the setting of chronic illness (Timmy connors al, JPEN J Parenteral Enteral Nutr. 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 - 12/29/2018 CT chest [facility]. No malignancy. Left axilla showing a 1.3 cm lymph node shortness axis. - 11/22/2019 2 pack/day for 46 years for total of 42 pack to pack year history. Followed by Dr Donta hernandez in [place]. - Scheduled for a yearly screening CT chest in December. - 01/24/2020 CT CLD: Stable 6 mm left lower lobe nodule. Diffuse mild centrilobular emphysema. Enlarged morphologically abnormal left axillary lymph node noted short axis I 0.9 cm. Pathologic lymph node is not excluded. 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 ([facility]) 06/13/2020 Family History Relation Status Comments Father Mother Social History Tobacco Use Types Packs/Day Years [...] 11:35 EDT Sexual Orientation Not on file Obstetrics History Last Filed Vital Signs Vital Sign Reading [...] Body Mass Index 23.52 03/27/2020 1518 EDT Plan of Treatment Health Maintenance Due Date Last Done Comments COVID-19 Vaccine (#1) 1968 Pneumococcal Immunization (1 of 2 - PCV) 1969 RSV Immunization ( o r 60+ Years) (1 - 1-dose 60+ series) 2023 Lung Cancer Screening 10/06/2023 10/05/2022 , 10/02/2021, 09/26/2020, Additional history exists Hepatitis C Screen Completed 09/02/2021, 04/12/2007 Procedures Procedure Name Priority Date/Time Associated Diagnosis [...] compression deformities. ACR REPORTABLE INCIDENTALS: None Lian Parnell ASSEMBLY INSTRUCTIONS WRITER IMG CT ORDERABLES * HEPATITIS C AB W REFLEX TO HCV RNA BY PCR (09/02/2021 15:40 EDT) Hep C Antibody Negative Negative 09/03/2021 11:21 EDT [facility] Blood VENOUS BLOOD / Unknown 09/02/2021 15:40 EDT 09/02/2021 21:42 EDT Provider Outr Resulting Lab CHEMISTRY & BLOOD GAS ORDERABLES [facility] [address] [place] [address] from Last 3 Months or Most Recently Relevant to Health Maintenance Advance Directives For more information, please contact: [phone] * Full Code (Latest Code Status on File) Date Activated Date Inactivated Comments 05/01/2013 15:29 05/05/2013 15:55 Care Teams Cdl Instructor Relationship Specialty Start Date End Date Lian Parnell FNP [address] [place] [address] PCP - General Family Medicine - Primary Care 09/16/21 CHARLENE URIOSTEGUI Pulmonary Disease 01/29/21
--- OUTSIDE RECORDS SUMMARY | 2024-02-03 13:14 | XMS_ITS | Encounter Summary ---
Author Organization [facility] Address [address] [place] [address] Care Team Providers Care Hemmer Automatic Name Role Phone Lian Parnell Primary Care Provider [phone] Encounter Details Date Type Department Care Team (Late st Contact Info) Description 11/03/2022 Orders Only [facility] [address] [place] [address] Albert Hinojosa Social History Tobacco Use Types Packs/Day Years [...] on filedocumented in this encounter Care Teams Hemmer Automatic Relationship Specialty Start Date End Date Lian Parnell FNP [address] [place] [address] PCP - General Family Medicine - Primary Care 09/16/21 CHARLENE URIOSTEGUI Pulmonary Disease 01/29/21 documented as of this encounter
--- OUTSIDE RECORDS SUMMARY | 2024-02-03 13:14 | XMS_ITS | Encounter Summary ---
Author Organization [facility] Address [address] [place] [address] Care Team Providers Care Energy Sales Broker Name Role Phone Lian Parnell MASK FORMER Primary Care Provider [phone] Encounter Details Date Type Department Care Team (Late st Contact Info) Description 11/02/2022 Documentation Visit [facility] [address] [place] [address] Taty Flores, RN Social History Tobacco Use Types Packs/Day [...] as of this encounter Progress Notes * Taty Flores, KASANDRA - 11/02/2022 1515 EDT Seen for a F/U post radiation therapy for lymphoma in 2020. Pt has not noticed any lumps or swollenglands. Says he has night sweats for the past 2 months, enough to have to change his t shirt. Has not have any F/U with [facility] since chemo. Continues to smoke and is not interested in smoking cessation. documented in this encounter Plan of Treatment Not on file documented as of this encounter Visit Diagnoses Not on filedocumented in this encounter Care Teams Energy Sales Broker Relationship Specialty Start Date End Date Lian Parnell FNP [address] [place] [phone] PCP - General Family Medicine - Primary Care 09/16/21 CHARLENE URIOSTEGUI Pulmonary Disease 01/29/21 documented as of this encounter
--- OUTSIDE RECORDS SUMMARY | 2024-02-03 13:14 | XMS_ITS | Encounter Summary ---
Author Organization [facility] Address [address] [place] [address] Care Team Providers Care Computer Programming Manager Name Role Phone Lian Parnell COKE OVEN PATCHER Primary Care Provider [phone] Reason for Visit * Reason Comments Cancer Encounter Details Date Type Department Care Team (Late st Contact Info) Description 06/11/2023 11:30 EST Office Visit [facility] [place] [address] [place], [place] [address] Lymphocyte-rich Hodgkin lymphoma of lymph nodes of [...] as of this encounter Progress Notes * Gaurang Rowan MD - 06/11/2023 1130 EST Images from the original note were not included. Division of Radiation Oncology- FOLLOW-UP NOTE Date of Service: 06/11/2023 Diagnosis/Stage: Cancer Staging No matching staging information was found for the patient. 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) - 09/06/2020 Radiation Therapy Completed radiation to 30 Gy Interval Since Completion of Radiation Therapy: 2 & 3/4 years Impression: Mr. Justin has a history of a stage IB Hodgkin's lymphoma involving the left axilla. He was treated with single cycle of chemotherapy and consolidation left axillary radiation almost 3 years ago. He continues to have night sweats which were part of his presenting symptoms and he is also noting fatigue. Night sweats/B symptoms could be an indicator of recurrent Hodgkin's disease but physical exam & recent imaging since the night sweats occurred does not reveal any disease. He does continue to smoke. Recommendations: F/u rad onc prn after today Continue f/u with Dr. Stephens whom he sees 08/09/23 Encouraged smoking cessation & services to help quit but he declined. History of Presenting Illness: Fran Justin, who goes by Darren, has Hodgkin's lymphoma of left axilla s/p 1 cycle of chemotherapy delivered and 30 Gy radiation. Medical history includes anxiety, depression, COPD, history of alcohol abuse and seizures. The records are reviewed from [facility], [facility] and Dr. Stephens. Classic Hodgkin lymphoma, lymphocyte rich subtype. Stage IB 12/20/17 CT [facility] in follow up left lung nodule and left axilla node. A 5 mm RLL nodule was stable. A left axillary node was again noted and less prominent compared to the prior CT. 12/29/[address] chest showed a mildly enlarged left axillary node with a short axis diameter of 1.3 cm (2.6 cm wide by my review). Moderate central lobular and paraseptal emphysematous changes were seen with no nodules. 10/31/2019 [facility] ultrasound of left axilla showing a 3.2 x 1.1 x 3 cm posterior axillary lymph node with vascular hilum. 03/13/20 Dr. Stephens evaluated him and palpated a 3 x 2 cm left axillary node and a 1.5 cm node. He did not feel this represented lymphoma or other malignancy. Plan: Follow-up in the CT chest in December be performed for lung cancer screening. 01/24/2020 CT: Stable 6 mm left lower lobe nodule. Diffuse mild centrilobular emphysema. Enlarged morphologically abnormal left axillary lymph node noted short axis 1.9 cm (3.4 cm wide by my review). Pathologic lymph node is not excluded. 03/13/2020 Dr. Stephens???s exam revealed a persistent 3 x 2 cm left axillary node with a second nodemeasuring 1.[address] Brooks for an excisional biopsy. 03/19/2020 Nav Brooks??? excisional biopsy of left axillary node pathology consistent with classic Hodgkin lymphoma, lymphocyte rich. Grossly 5 x 3.5 x 1.5cm specimen. 03/25/2020 echocardiogram: LVEF 60 to 65% left ventricular wall thickness normal 03/26/2020 PET scan. Impression: 1. 5.6 cm centrally necrotic FDG avid left axillary mass, consistent with history of lymphoma. No other FDG avid nodes are detected. The spleen is normal in size. 2. Mildly elevated uptake within the distal esophagus. Please correlate clinically and consider furtherassessment with endoscopy. 3. Focally elevated uptake within the cecum and rectum. This is highly nonspecific. Please correlate with colonoscopy. 03/27/2020 Dr. Stephens felt the patient was not good candidate for ABVD due to severe COPD oxygen dependent, still smoking. Recommended R-CHOP x 6. 04/15/2020 Cycle # 1. Rash at 1 week. Vein pain, Not eating, felt terrible. Port access recommended. 04/2020 declined further therapy increased psychiatric issues and referred to Psych. 05/2020 carpal tunnel worsening, declined therapy until hand surgery, scheduled for 06/14/2020 06/22/2020 Dr. Blanca Naik performed at [facility] right carpal tunnel surgery. A few days later the site got infected requiring hospitalization for IV antibiotics. 07/10/[address] Stephens. Hand infection [...] the wound got infected was admitted to [facility] for IV antibiotics he left AMA before finishing a course. He had been home for about 2 weeks with oral antibiotics. 07/24/20 PET IMPRESSION: Interval improvement in the appearance of the left axilla with resolution of large left axillary mass and associated inflammatory change. There are residual small left axillary lymph nodes demonstrating mild increased metabolic activity. He reports that he has been experiencing night sweats for some 8 months or more and they continue. He lost approximately 15 pounds over the past many months. He is currently without left axillary discomfort or symptoms. He is still smoking up to 2 packs/day. 09/06/20 completed radiation to the left axilla to 3000 cGy in 10 treatments. 12/31/2020 PET scan IMPRESSION: 1. Interval resolution [...] short-term follow-up CT scan as clinically warranted. 03/10/21 Follow up. He reports he is still smoking up to 2 packs/day of cigarettes. He has seen a smoking cessation counselor but at this point has no desire to quit. He does have dyspnea on exertion. He is aware that COPD is present and that imaging has shown evidence of emphysema. 10/02/21 CT chest abd pelvis. Impression: 1. [...] lobe, likely reflecting a mild infectious/inflammatory process. 02/02/23: PET HOOD Interval History: He is seen in the office today with his partner Hermelinda. He continues to have the night sweats he described at the last visit. He has continued to smoke and is now smoking about 2-3 packs/day. Has smoker's cough, productive of clear sputum, which is chronic. He has anxiety which is a challenge, but does already have counseling services. Objective: There were no vitals taken for this visit. Wt Readings from Last 3 Encounters: 06/11/23 62.1 kg (137 lb) 02/25/23 61.7 kg (136 lb) 11/02/22 61.3 kg (135 lb 1.6 oz) ECOG performance Status: (0) Fully active, able to carry on all predisease performance without restriction The oral cavity is without mucosal lesions. Keisha exam reveals no cervical, supraclavicular, axillary, epitrochlear, inguinal adenopathy. Lungs have slight expiratory wheeze throughout, most audible in RUL even after cough. Cardiac exam reveals regular rate. Abdomen is scaphoid nontender. Organomegaly is not noted Neurologic exam appears nonfocal Lab Results: Lab Results Component Value Date WBC 9.62 02/25/2023 HGB 14.4 02/25/2023 HCT 43.5 02/25/2023 PLT 337 02/25/2023 ALT 21 02/25/2023 AST 26 02/25/2023 NA 134 (L) 02/25/2023 K 4.3 02/25/2023 CL 98 02/25/2023 CREATININE 0.77 02/25/2023 BUN 12 02/25/2023 CO2 31 02/25/2023 TSH 0.73 05/01/2013 PSA 1.5 01/01/2021 Imaging: PET CT EYE TO THIGH Order: [id number] Status: Final result Visible to patient: No (inaccessible in MyChart) Next appt: 08/09/2023 at 14:30 in Hematology and Oncology (Jaxon Stephens MD) Dx: Lymphocyte-rich Hodgkin lymphoma of l... 0 Result Notes Details Reading Physician Reading Date Result Priority Derek Shukla MD [phone] 02/02/2023 Narrative & Impression INDICATION: h/o stage IB hodgkins lymphoma L axilla s/p chemo and L axilla radiation 08/2020; Hematologic malignancy, staging; h/o stage IB hodgkins lymphoma L axilla s/p chemo and L axilla radiation 08/2020;C81.44:Lymphocyte-rich Hodgkin lymphoma of lymph nodes of [...] Pulmonary emphysema and scattered parenchymal scar, unchanged. IMPRESSION No abnormal increased metabolic activity identified. [id number] I spent a total of 25 minutes on the date of this encounter meeting with the patient and reviewing documentation/coordinating care as described in the above note. No procedures were performed at the time of the visit. 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
--- OUTSIDE RECORDS SUMMARY | 2024-02-03 13:14 | XMS_ITS | Encounter Summary ---
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) Social History Tobacco Use Types Packs/Day Years [...] Procedure Name Priority Date/Time Associated Diagnosis Comments COMPLETE BLOOD COUNT AND DIFFERENTIAL Routine 11/02/2022 15:37 EDT 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) TESTOSTERONE Routine 11/02/2022 15:37 EDT 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) LDH Routine 11/02/2022 15:37 EDT 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) COMPREHENSIVE METABOLIC PANEL (CMP) Routine 11/02/2022 15:37 EDT 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) documented in this encounter Results * TESTOSTERONE (11/02/2022 15:37 EDT) Pathologist [facility] Testosterone 373.0 229.0 - 902.0 ng/dL 11/02/2022 17:26 EDT [facility] Blood VENOUS BLOOD / Unknown Venipuncture / Unknown 11/02/2022 15:37 EDT 11/02/2022 16:23 EDT Ed Brady MD CHEMISTRY & BLOOD GAS ORDERABLES Performing Organization Address City/State/[facility] Co de Phone Number [facility] [address] [place] [phone] * COMPREHENSIVE METABOLIC PANEL (CMP) (11/02/2022 15:37 EDT) Pathologist [facility] Sodium 138 136 - 145 mmol/L 11/02/2022 16:53 EDT [facility] Potassium 4.4 3.5 - 5.0 mmol/L [facility]lor[facility] 102 96 - 110 mmol/L [facility] CO2 Total 25 22 - 32 mmol/L [facility] Glucose 81 70 - 100 mg/dl 11/02/2022 16:53 EDT [facility] BUN 11 10 - 26 mg/dL 11/02/2022 16:53 [facility] Creatinine 0.81 0.66 - 1.25 mg/dL 11/02/2022 16:53 [facility] eGFR 102 >60 mL/min/1.7 3m2 11/02/2022 16:53 [facility] Total Protein 7.2 6.3 - 8.2 g/dL 11/02/2022 16:53 [facility] Albumin 4.3 3.4 - 4.9 g/dL 11/02/2022 16:53 [facility] Alkaline Phosphatase 65 38 - 126 U/L 11/02/2022 16:53 [facility] AST 31 15 - 46 U/L 11/02/2022 16:53 [facility] ALT 25 <50 U/L 11/02/2022 16:53 [facility] Bilirubin, Total 0.5 <1.4 mg/dL 11/03/19 16:53 [facility] Calcium 9.3 8.5 - 10.5 mg/dL 11/02/2022 16:53 [facility] Albumin/Globulin Ratio 1.5 1.0 - 2.5 11/02/2022 16:53 [facility] Anion Gap 11 5 - 14 mmol/L 11/02/2022 16:53 [facility] Blood VENOUS BLOOD / Unknown Venipuncture / Unknown 11/02/2022 15:37 EDT 11/02/2022 16:23 EDT Ed Brady MD CHEMISTRY & BLOOD GAS ORDERABLES [facility] [address] [place] [address] * LDH (11/02/2022 15:37 EDT) LDH 225 120 - 246 U/L 11/02/2022 17:47 [facility] Blood VENOUS BLOOD / Unknown Venipuncture / Unknown 11/02/2022 15:37 EDT 11/02/2022 16:23 EDT Ed Brady MD CHEMISTRY & BLOOD GAS ORDERABLES [facility] [address] [place] [address] * (ABNORMAL) COMPLETE BLOOD COUNT AND DIFFERENTIAL (11/02/2022 15:37 EDT) WBC 12.76(H) 4.00 - 10.40 K/cmm 11/02/2022 16:34 [facility] RBC 4.64 4.36 - 5.78 M/cmm 11/02/2022 16:34 [facility] Hemoglobin 15.2 13.8 - 17.3 g/dL 11/02/2022 16:34 [facility] HCT 45.7 39.5 - 50.2 % 11/02/2022 16:34 [facility] MCV 99(H) 81 - 95 fL 11/02/2022 16:34 [facility] MCH 32.8 27.6 - 33.0 pg 11/02/2022 16:34 [facility] MCHC 33.3 32.8 - 36.4 g/dL 11/02/2022 16:34 [facility] RDW-CV 13.7 <14.2 % 11/02/2022 16:34 [facility] RDW-SD 50.4(H) <46.0 fl 11/02/2022 16:34 [facility] PLT 397(H) 141 - 377 K/cmm 11/02/2022 16:34 [facility] MPV 9.0(L) 9.5 - 12.7 fL 11/02/2022 16:34 [facility] % Neutrophils 77.5 % 11/02/2022 16:34 [facility] % Lymphocytes 13.8 % 11/02/2022 16:34 [facility] % Monocytes 6.3 % 11/02/2022 16:34 [facility] % Eosinophils 1.3 % 11/02/2022 16:34 [facility] % Basophils 0.6 % 11/02/2022 16:34 [facility] % Immature Grans 0.5 % 11/03/19 16:34 [facility] Absolute Neutrophils 9.89(H) 2.20 - 8.85 K/cmm 11/02/2022 16:34 [facility] Absolute Lymphocytes 1.76 1.09 - 3.30 K/cmm 11/02/2022 16:34 [facility] Absolute Monocytes 0.80 0.10 - 0.80 K/cmm 11/02/2022 16:34 [facility] Absolute Eosinophils 0.17 0.03 - 0.61 K/cmm 11/02/2022 16:34 [facility] ABS Basophils 0.08 0.01 - 0.11 K/cmm 11/02/2022 16:34 [facility] Absolute Immature Grans 0.06 0.00 - 0.06 K/cmm 11/02/2022 16:34 [facility] Type of Differential: Auto 11/02/2022 16:34 [facility] Blood VENOUS BLOOD / Unknown Venipuncture / Unknown 11/02/2022 15:37 EDT 11/02/2022 16:22 EDT Ed Brady MD PACKAGES & DNA NV OBE ORDERABLES [facility] [address] [place] [address] documented in this encounter Visit Diagnoses Diagnosis 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
--- OUTSIDE RECORDS SUMMARY | 2024-02-03 13:14 | XMS_ITS | Encounter Summary ---
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) Procedures PET CT EYE TO THIGH Ed Brady MD [address] [phone] [facility] Referral ID Status Reason Start Date Expiration Date Visits Requested Visits Authorized [id number] Authorization Not Required 11/03/2022 1 1 Encounter Details Date Type Department Care Team (Late st Contact Info) Description 11/03/2022 Orders Only [facility] Cancer Treatment [address] [address] dE Brady MD [address] [place] [phone] Lymphocyte-rich Hodgkin lymphoma of lymph nodes [...] on file documented as of this encounter Results * PET CT EYE TO THIGH (02/02/2023 11:42 EDT) Anatomical Region Laterality Modality Body Nuclear Medicine 02/02/2023 14:0 6 EDT Impressions 02/02/2023 14:06 EDT No abnormal increased metabolic activity identified. [id number] Narrative 02/02/2023 14:06 EDT INDICATION: h/o stage IB hodgkins lymphoma L [...] Pulmonary emphysema and scattered parenchymal scar, unchanged. 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 COMPARISON: PET/CT 12/31/2020, low-dose lung CT 10/05/2022. TECHNIQUE: PET/CT was performed from the base of the skull to the midthighs with a dose of 13.2 mCi of F-18 FDG. Low-dose CT scan was obtainedfor localization purposes. FINDINGS: Neck/Chest: No abnormal increased metabolic activity is identified withinthe neck or chest. Abdomen/Pelvis: No abnormal increased metabolic activity is identifiedwithin the abdomen or pelvis. Bones: No abnormal increased metabolic activity is identified within theskeleton. Localizing CT: No acute or suspicious abnormalities are identified onlimited low-dose localizing CT images. Pulmonary emphysema and scatteredparenchymal scar, unchanged. IMPRESSION No abnormal increased metabolic activity identified. 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
--- OUTSIDE RECORDS SUMMARY | 2024-02-03 13:14 | XMS_ITS | Encounter Summary ---
Author Organization [facility] Address [address] [place] [address] Care Team Providers Care Flour Distributor Name Role Phone Lian Parnell TITRATOR Primary Care Provider [phone] Reason for Visit * Reason Onset Date Comments Appointment Related 11/27/2022 Encounter Details Date Type Department Care Team (Late st Contact Info) Description 11/27/2022 Telephone [facility] Adult Hematology & Oncology [address] [place] [phone] Jaxon Stephens MD [address] [place] [address] [address] [place] [phone] Appointment Related Social History Tobacco Use Types [...] Telephone Encounter - Maria R Macdonald - 11/27/2022 1046 EDT The oncology [facility] office asked that we see pt in the [place] office for PET scan follow up. Appt scheduled with Dr Stephens for 12/15/22. Called pt and left a detailed message of the appt date and timeand stated the appt is at the [place] office and not the [facility] office. Pt Identified himself on hisvoice mail. documented in this encounter Plan of Treatment Not on file documented as of this encounter Visit Diagnoses Not on filedocumented in this encounter Care Teams Flour Distributor Relationship Specialty Start Date End Date Lian Parnell FNP [address] [place] [phone] PCP - General Family Medicine - Primary Care 09/16/21 CHARLENE URIOSTEGUI Pulmonary Disease 01/29/21 documented as of this encounter
--- OUTSIDE RECORDS SUMMARY | 2024-02-03 13:14 | XMS_ITS | Encounter Summary ---
Author Organization [facility] Address [address] [place] [address] Care Team Providers Care Sample Builder Name Role Phone Lian Parnell ARC WELDER Primary Care Provider [phone] Reason for Visit * Reason Comments Cancer F/U Encounter Details Date Type Department Care Team (Late st Contact Info) Description 11/02/2022 15:00 EDT Office Visit [facility] Cancer Treatment [facility] [address] [place], [place] [address] Ed Brady MD [address] [facility], [facility] [address] [place] [address] Lymphocyte-rich Hodgkin lymphoma of lymph [...] Sign Reading Time Taken Comments Blood Pressure 135/74 11/02/2022 1450 EDT Pulse 92 11/02/2022 1450 EDT Temperature - - Respiratory Rate 16 11/02/2022 1450 EDT Oxygen Saturation - - Inhaled Oxygen Concentration - - Weight 61.3 kg (135 lb 1.6 oz) 11/02/2022 1450 E DT Height - - Body Mass Index 23.19 03/27/2020 1518 EDT documented in this encounter [...] Progress Notes * Ed Brady MD - 11/02/2022 1500 EDT Images from the original note were not included. Division of Radiation Oncology- FOLLOW-UP NOTE Date of Service: 11/02/2022 Diagnosis/Stage: Cancer Staging No matching staging information was found for the patient. 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 Justin has a history of a stage IB Hodgkin's lymphoma involving the left axilla. He was treated with single cycle of chemotherapy and consolidation left axillary radiation 2 years ago. He has developed recurrent night sweats which were part of his presenting symptoms and he is also noting fatigue. Night sweats/B symptoms could be an indicator of recurrent Hodgkin's disease but physical exam does not reveal any palpable adenopathy and low-dose noncontrast chest CT 1 month ago did not show any evidence of adenopathy in the chest. Stable subcentimeter nodules have been noted. He does continue to smoke. Recommendations: 1. [facility] CBC with differential, LDH, CMP and testosterone have been requested today and I will follow-up with him regarding the results. 2. I would like to discuss with Dr. Stephens potential further evaluation of his night sweats and whether PET scan should be ordered. 3. I have asked him to schedule [facility] follow-up with Dr. Stephens in 3 months and follow-up here in 6 months pending the above results. History of Presenting Illness: Fran Jusitn, who goes by Darren, has Hodgkin's lymphoma of left axilla??s/p??1 cycle of chemotherapy delivered and 30 Gy radiation. ??Medical history includes anxiety, depression, COPD, history of alcohol abuse and seizures. ?? [place] [facility] [place] [facility] [place] Dr. Stephens. ?? Classic Hodgkin lymphoma, lymphocyte rich subtype. Stage IB ??? 12/20/17 [facility] in follow up left lung nodule and left axilla node. ??A 5 mm RLL [...] ??? 06/22/2020 Dr. Blanca Naik performed at [facility] right carpal tunnel surgery. ??A few days [...] the wound got infected was admitted to [facility] for IV antibiotics he left AMA [...] and that imaging has shown evidence of emphysema.? 10/02/21 CT chest abd pelvis. Impression:??1. No lymphadenopathy. No enlarged axillary node at [...] follow up CT. 3. Emphysema. 4. Additional lquwenracqzbu-[id number]-[id number] type micronodular opacities in the right upper lobe, likely reflecting a mild infectious/inflammatory process. Interval History: He is seen in the office today with his partner Hermelinda. Interval history is significant for return night sweats over the past 1 to 2 months which were one of the symptoms he had at his original diagnosis of Hodgkin's disease. His partner notes that occasionally he does not wake and she also is getting wet from his night sweats if they are close together. He is also noticing some increased fatigue over the last couple of months. He feels weight has been stable and charting here does confirm stability.. He has continued to smoke and is now smoking about 1.5 packs/day. He is not physically active but he has been working on cars. He reports no fevers, chills and he is without complaints of hemoptysis or significant cough. As noted below low-dose lung cancer screening CT 1 month ago showed 3 stable subcentimeter nodules and I reviewed the CT images and there is no evidence of adenopathy particularly in the left axilla.Tiny nonpathologic axillary nodes are noted and stable. Objective: BP 135/74 (BP Cuff Location: Right arm, BP Patient Position: Sitting) Pulse 92 Resp 16 Wt 61.3 kg (135 lb 1.6 oz) BMI 23.19 kg/m?? Wt Readings from Last 3 Encounters: 06/27/22 61.2 kg (135 lb) 04/27/22 63.1 kg (139 lb 1.6 oz) 10/16/21 60.2 kg (132 lb 12.8 oz) ECOG performance Status: (0) Fully active, able to carry on all predisease performance without restriction The oral cavity is without mucosal lesions. Keisha exam reveals no cervical, supraclavicular, axillary, epitrochlear, inguinal adenopathy. Lungs are clear. Cardiac exam reveals regular rate. Abdomen is scaphoid nontender. Organomegaly is not noted Neurologic exam appears nonfocal Lab Results: Lab Results Component Value Date WBC 10.88 (H) 06/27/2022 HGB 12.7 (L) 06/27/2022 HCT 38.9 (L) 06/27/2022 PLT 386 (H) 06/27/2022 ALT 16 06/27/2022 AST 21 06/27/2022 NA 139 06/27/2022 K 4.2 06/27/2022 CL 105 06/27/2022 CREATININE 0.65 (L) 06/27/2022 BUN 9 (L) 06/27/2022 CO2 28 06/27/2022 TSH 0.73 05/01/2013 PSA 1.5 01/01/2021 Imaging: CT CHEST LOW DOSE LUNG SCREENING 10/05/2022 CLINICAL HISTORY/COMMENTS: SMOKER COMPARISON: 10/02/2021. FINDINGS: LUNG SCREENING SPECIFIC (LUNGRADS) FINDINGS: * The 9mm mean diameter at the upper lung nodule is unchanged (series 205, image 107). * The 5 mm left base nodule is unchanged (series 205, image 265). * Additional stable scattered sub-6 mm pulmonary nodules are unchanged. * Additional areas of chronic linear scarring are seen in the right middle lobe and left lingula. POTENTIALLY SIGNIFICANT INCIDENTALS (LungRADS Category S): None PULMONARY INCIDENTALS: * Severe emphysema. * Scattered bronchial wall thickening and secretions. OTHER INCIDENTALS: * Mild aortic atherosclerosis. * Mild coronary artery calcifications. 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 ACR REPORTABLE INCIDENTALS: None Impression: 1. LungRADS Category 2: Benign. 2. LungRADS Category S: Negative. No clinically significant or potentially clinically significant nonlung cancer findings requiring urgent additional evaluation. 3. Incidental findings: As above. RECOMMENDATIONS: Continue annual screening with low-dose CT in 12 months Continued low dose CT lung cancer screening should be based upon continued eligibility determined from age and smoking history. I spent a total of 25 minutes on the date of this encounter meeting with the patient and reviewing documentation/coordinating care as described in the above note. No procedures were performed at the time of the visit. Ed Brady MD Radiation Oncology-[facility] (p) [phone] / (f) [phone] documented in this encounter Plan of Treatment Not on file documented as of this encounter Results * TESTOSTERONE (11/02/2022 15:37 EDT) Testosterone 373.0 229.0 - 902.0 ng/dL 11/02/2022 17:26 EDT [facility] Blood VENOUS BLOOD / Unknown Venipuncture / Unknown 11/02/2022 15:37 EDT 11/02/2022 16:23 EDT Ed Brady MD CHEMISTRY & BLOOD GAS ORDERABLES [facility] [address] [place] [address] * COMPREHENSIVE METABOLIC PANEL (CMP) (11/02/2022 15:37 EDT) Sodium 138 136 - 145 mmol/L [facility] Potassium 4.4 3.5 - 5.0 mmol/L 11/02/2022 16:53 [facility] Chloride 102 96 - 110 mmol/L 11/02/2022 16:53 [facility] CO2 Total 25 22 - 32 mmol/L 11/02/2022 16:53 [facility] Glucose 81 70 - 100 mg/dl 11/02/2022 16:53 [facility] BUN 11 10 - 26 mg/dL 11/02/2022 16:53 [facility] Creatinine 0.81 0.66 - 1.25 mg/dL 11/02/2022 16:53 [facility] eGFR 102 >60 mL/min/1.7 3m2 11/02/2022 16:53 [facility] Total Protein 7.2 6.3 - 8.2 g/dL 11/02/2022 16:53 [facility] Albumin 4.3 3.4 - 4.9 g/dL 11/02/2022 16:53 [facility] Alkaline Phosphatase 65 38 - 126 U/L 11/02/2022 16:53 [facility] AST 31 15 - 46 U/L 11/02/2022 16:53 [facility] ALT 25 <50 U/L 11/02/2022 16:53 [facility] Bilirubin, Total 0.5 <1.4 mg/dL 11/03/19 16:53 [facility] Calcium 9.3 8.5 - 10.5 mg/dL 11/02/2022 16:53 [facility] Albumin/Globulin Ratio 1.5 1.0 - 2.5 11/02/2022 16:53 [facility] Anion Gap 11 5 - 14 mmol/L 11/02/2022 16:53 [facility] Blood VENOUS BLOOD / Unknown Venipuncture / Unknown 11/02/2022 15:37 EDT 11/02/2022 16:23 EDT Ed Brady MD CHEMISTRY & BLOOD GAS ORDERABLES [facility] [address] [place] [address] * LDH (11/02/2022 15:37 EDT) [facility] LDH 225 120 - 246 U/L 11/02/2022 17:47 [facility] Blood VENOUS BLOOD / Unknown Venipuncture / Unknown 11/02/2022 15:37 EDT 11/02/2022 16:23 EDT Ed Brady MD CHEMISTRY & BLOOD GAS ORDERABLES Performing Organization Address City/[facility]/ZIP Co de Phone Number [facility] [address] [place] [address] * (ABNORMAL) COMPLETE BLOOD COUNT AND DIFFERENTIAL (11/02/2022 15:37 EDT) [facility] WBC 12.76(H) 4.00 - 10.40 K/cmm 11/02/2022 16:34 [facility] RBC 4.64 4.36 - 5.78 M/cmm 11/02/2022 16:34 [facility] Hemoglobin 15.2 13.8 - 17.3 g/dL 11/02/2022 16:34 [facility] HCT 45.7 39.5 - 50.2 % 11/02/2022 16:34 [facility] MCV 99(H) 81 - 95 fL 11/02/2022 16:34 [facility] MCH 32.8 27.6 - 33.0 pg 11/02/2022 16:34 [facility] MCHC 33.3 32.8 - 36.4 g/dL 11/02/2022 16:34 [facility] RDW-CV 13.7 <14.2 % 11/02/2022 16:34 [facility] RDW-SD 50.4(H) <46.0 fl 11/02/2022 16:34 [facility] PLT 397(H) 141 - 377 K/cmm 11/02/2022 16:34 [facility] MPV 9.0(L) 9.5 - 12.7 fL 11/02/2022 16:34 [facility] % Neutrophils 77.5 % 11/02/2022 16:34 [facility] % Lymphocytes 13.8 % 11/02/2022 16:34 [facility] % Monocytes 6.3 % 11/02/2022 16:34 [facility] % Eosinophils 1.3 % 11/02/2022 16:34 [facility] % Basophils 0.6 % 11/02/2022 16:34 [facility] % Immature Grans 0.5 % 11/03/19 16:34 [facility] Absolute Neutrophils 9.89(H) 2.20 - 8.85 K/cmm 11/02/2022 16:34 [facility] Absolute Lymphocytes 1.76 1.09 - 3.30 K/cmm 11/02/2022 16:34 [facility] Absolute Monocytes 0.80 0.10 - 0.80 K/cmm 11/02/2022 16:34 [facility] Absolute Eosinophils 0.17 0.03 - 0.61 K/cmm 11/02/2022 16:34 [facility] ABS Basophils 0.08 0.01 - 0.11 K/cmm 11/02/2022 16:34 [facility] Absolute Immature Grans 0.06 0.00 - 0.06 K/cmm 11/02/2022 16:34 [facility] Type of Differential: Auto 11/02/2022 16:34 [facility] Blood VENOUS BLOOD / Unknown Venipuncture / Unknown 11/02/2022 15:37 EDT 11/02/2022 16:22 EDT Ed Brady MD PACKAGES & DNA AL OBE ORDERABLES [facility] [address] [place] [address] documented in this encounter Visit Diagnoses Diagnosis 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 Therapy completed 11/02/2022 doxycycline (ADOXA) 100 mg tablet TAKE ONE TABLET BY MOUTH TWICE A DAY FOR 2 WEEKS Therapy completed 06/25/2020 11/02/2022 DULoxetine (CYMBALTA) 20 mg delayed release capsule Take 20 mg by mouth 2 times daily. Therapy completed 11/02/2022 DULoxetine (CYMBALTA) 30 mg delayed release capsule Take 30 mg by mouth daily. Therapy completed 11/02/2022 famotidine (PEPCID) 40 mg tablet Take 40 mg by mouth at bedtime. Therapy completed 11/02/2022 famotidine (PEPCID) 20 mg tablet Take 20 mg by mouth at bedtime. Therapy completed 11/02/2022 HYDROcodone-acetaminop hen (NORCO) 5-325 mg tablet Take 1-2 Tabs by mouth every 6 hours as needed for Pain. Therapy completed 11/02/2022 HYDROmorphone (DILAUDID) 2 mg tablet TAKE ONE TABLET BY MOUTH EVERY 4 HOURS NEEDED FOR PAIN NOT CONTROLLED BY TYLENOL AND IBUPROFEN Therapy completed 09/17/2020 11/02/2022 melatonin 3 mg tablet Take 6 mg by mouth. Therapy completed 09/17/2020 11/02/2022 NARCAN 4 mg/actuation nasal spray SPRAY 0.1ML INTO ONE NOSTRIL REPEAT WITH SECOND DEVICE INTO THE OTHER NOSTRIL AFTER 2 3 MINUTES IF NO OR MINIMAL RESPONSE Therapy completed 06/14/2020 11/02/2022 oxyCODONE (ROXICODONE) 5 mg immediate release tablet Take 1-2 Tabs by mouth every 3 hours as needed for Pain. Therapy completed 03/14/2020 11/02/2022 pregabalin (LYRICA) 100 mg capsule Take by mouth 3 times daily. Therapy completed 09/17/2020 11/02/2022 triamcinolone (KENALOG) 0.1 % cream APPLY TO AFFECTED AREA S THREE TIMES A DAY NEEDED Therapy completed 05/07/2020 11/02/2022 nicotine (NICODERM CQ) 21 mg/24 hr patch APPLY ONE PATCH TO THE SKIN EVERY DAY Therapy completed 06/25/2020 11/02/2022 nicotine polacrilex (NICORETTE) 2 mg gum CHEW 1 PIECE OF EVERY 2 HOURS NEEDED Therapy completed 10/04/2020 11/02/2022 nicotine polacrilex (NICORETTE) 4 mg gum CHEW 1 PIECE BY MOUTH EVERY 2 HOURS NEEDED FOR SMOKING CESSATION NOTHING BUT WATER 15 MINUTES BEFORE OR DURING USE Therapy completed 10/01/2020 11/02/2022 documented as of this encounter Care Teams Sample Builder Relationship Specialty Start Date End Date Lian Parnell FNP [address] [place] [id number] PCP - General Family Medicine - Primary Care 09/16/21 CHARLENE URIOSTEGUI Pulmonary Disease 01/29/21 documented as of this encounter
--- OUTSIDE RECORDS SUMMARY | 2024-02-03 13:14 | XMS_ITS | Encounter Summary ---
Author Organization [facility] Address [address] [place] [address] Care Team Providers Care Architectural Inspector Name Role Phone Lian Parnell SENIOR RESIDENT CARE DIRECTOR Primary Care Provider [phone] Reason for Visit * Reason Onset Date Comments Results 02/02/2023 Encounter Details Date Type Department Care Team (Late st Contact Info) Description 02/02/2023 Telephone [facility] Cancer Treatment [place] [address] [place], [place] [address] Ed Brady MD [address] [facility] [address] [place] [address] Results Social History Tobacco Use [...] Telephone Encounter - Ed Brady MD - 02/02/2023 1511 EDT Left a message that PET today showed no abnormal uptake or evidence of recurrence. documented in this encounter Plan of Treatment Not on file documented as of this encounter Visit Diagnoses Not on filedocumented in this encounter Care Teams Architectural Inspector Relationship Specialty Start Date End Date Lian Parnell FNP [address] [place] [id number] PCP - General Family Medicine - Primary Care 09/16/21 CHARLENE URIOSTEGUI Pulmonary Disease 01/29/21 documented as of this encounter
--- OUTSIDE RECORDS SUMMARY | 2024-02-03 13:14 | XMS_ITS | Encounter Summary ---
Author Organization [facility] Address [address] [place] [address] Care Team Providers Care Parquetry Layer Name Role Phone Lian Parnell PREMIUM NOTE INTEREST CALCULATOR CLERK Primary Care Provider Reason for Visit * Reason Comments Deep Vein Thrombosis Transfer from [facility] for RLE DVT. Encounter Details Date Type Department Care Team (Late st Contact Info) Description 06/27/2022 21:37 EST - 06/27/2022 23:35 EST Emergency [facility] Emergency Department - [address] [id number] Trey Lara, PAJessiC [address] [phone] Ranjana Leslie MD [address] [place] [phone] Acute pain of right knee (Primary Dx) Discharge Disposition: Home or Self Care Social [...] Recorded In the last 10 days, have nelida guallpa been in contact with someone who was confirmed or suspected to have Coronavirus/COVID-19? No / Unsure 06/27/2022 21:45 EST documented as of this encounter Last Filed Vital Signs Vital Sign Reading Time Taken Comments Blood Pressure 154/78 06/27/2022 2300 EST Pulse 80 06/27/20224 EST Temperature 36.3 ??C (97.4 ??F) 06/27/2022 2144 EST Respiratory Rate 14 06/27/2022 2300 EST Oxygen Saturation 96% 06/27/2022 2300 EST Inhaled Oxygen Concentration - - Weight 61.2 kg (135 lb) 06/27/20222143 EST Height - - Body Mass Index 23.17 03/27/2020 1518 EDT documented in this encounter [...] Yes 03/23/2019 documented as of this encounter Discharge Instructions * Discharge Instructions* Ranjana Leslie MD - 06/27/2022 23:08 EST You were seen in the emergency department for evaluation of your right leg and knee pain and swelling. You were referred to the ED for an ultrasound, which did not show evidence of a blood clot. It did show possibility of a Neff's cyst, behind your knee, which may be the cause for your pain. The imaging will be read by supervising radiologist in the morning and you will be notified if there are any other concerning findings. As we discussed, your hemoglobin (blood count) was mildly low. Pleasereview this with your primary care physician. It is recommended that you have a repeat ultrasound in 5 to 7 days if you continue to have pain and swelling. It is also recommended that you see your primary care physician to ensure that your symptoms are improving and to discuss referral to orthopedics for further imaging of your knee if you continue to have pain. Meanwhile, return to the ED if you experience any new or worsening symptoms, including but not limited to worsening or uncontrolled pain, increasing swelling, increased warmth of your leg, or rednessof the skin. Fever or chills, or any other symptoms that concern you. documented in this encounter Medications at Time of Discharge [...] 1 Tablet by mouth 2 times daily. DOK 100 mg capsule TAKE ONE CAPSULE [...] Code Departure Means Destination Home or Self [facility] documented in this encounter ED Notes * Hanh Pritchett RN - 06/27/2022 2331 EST Patient provided DC instructions with verbalized understanding. PIV removed. Ambulatory with steadygait. * Rnajana Leslie MD - 06/27/2022 2304 EST I, Alisha Miller, am scribing for Ranjana Leslie MD while he/she is personally performing the service. Alisha Miller 06/27/2022 23:04 Fran Rios Nhan Tuyet is a 57 y.o. male who presents to the ED with leg pain. The patient was seen at [facility] and sent here to rule out DVT. He describes pain in the back of his thigh, calf, andknee as well as pain with ambulation. He has no history of clots. I assumed care of patient from Trey Lara with US lower venous duplex pending. DVT ultrasound withpreliminary negative read. Possibility of Neff's cyst which correlates with the patient's description of pain, in the popliteal fossa. No significant right lower extremity edema on my exam, 2+ DP pulse. Limited flexion of knee, but intact extension, no pain with micro movements. No warmth, or eryth orquidea. Exam not concerning for septic joint, cellulitis, and low clinical suspicion for DVT. I have recommended that he get repeat outpatient ultrasound in 5 to 7 days if continuing to have pain or swelling, as well as reevaluation by his primary care physician to ensure his knee is improving. We discussed possible referral to orthopedics if having ongoing pain to consider aspiration of his Neff'scyst, I also reviewed the incidental finding of low hemoglobin of the patient, with plan for him tofollow-up with his primary care physician. Provided with strict ED return precautions. Discharged home This documentation is recorded by Alisha Miller acting as Scribe under the direction and presence ofRanjana Leslie MD. Ranjana Leslie MD: I personally performed the services recorded by the scribe in my presence. I confirm the scribe's documentation has been reviewed by me to accurately and completely record my work,treatment, procedures, and medical decision making. * Trey Lara PA-C - 06/27/2022 2205 EST Emergency Department Visit Medical Decision Making Patient had ultrasound and labs pending. Initial examination was low suspicion for DVT but given the patient's popliteal pain ultrasound was ordered with care transferred to Dr. Leslie attending physician with ultrasound results pending and disposition pending Relevant Data as of 07/02/22 0217 Sat Jun 27, 2022 2309 DVT ultrasound with pulmonary negative read. Possibility of Neff's cyst which correlates withthe patient's description of pain, in the popliteal fossa. No significant right lower extremity edema on my exam, 2+ DP pulse. Limited flexion of knee, but intact extension, no pain with micro movements. No warmth, or erythema. Exam not concerning for septic joint, cellulitis, and low clinical suspicion for DVT. I have recommended that he get repeat outpatient ultrasound in 5 to 7 days if continuing to have pain or swelling, as well as reevaluation by his primary care physician to ensure his knee is improving. We discussed possible referral to orthopedics if having ongoing pain to consider aspiration of his Neff's cyst, I also reviewed the incidental finding of low hemoglobin of the patient, with plan for him to follow-up with his primary care physician. Provided with strict ED return precautions. Discharged home. [EL] Relevant Data User Index [EL] Ranjana Leslie MD Laboratory data was reviewed and independently interpreted. } I reviewed relevant external documentation, including discharge summaries. Medical decision making included the following elements: prescription drug management. Final diagnoses: None Disposition: No disposition on file Chief complaint: Leg pain HPI Fran Justin Sr. is a 57 y.o. male with a history of lymphoma emphysema, alcohol abuse, anxiety, was sent here from [facility] for rule out DVT. Patient has been complaining about 2 weeks of right-sided pain. He describes it in the back of his thigh calf as well as his knee and anterior thigh. He is having pain with walking. There was no recent injury. No fevers or chills History was provided by: Patient and medical records Patient's pertinent PMH, FH, SH were reviewed and edited as necessary. Physical Exam BP (!) 152/82 Pulse 80 Temp 36.3 ??C (97.4 ??F) (Oral) Resp 18 Wt 61.2 kg (135 lb) SpO2 95% BMI 23.17 kg/m?? A medical screening exam was performed. Physical Exam Vitals and nursing note reviewed. Constitutional: General: He is not in acute distress. Appearance: He is well-developed. He is not diaphoretic. HENT: Head: Normocephalic and atraumatic. Right Ear: External ear normal. Left Ear: External ear normal. Mouth/Throat: Mouth: Mucous membranes are moist. Eyes: Conjunctiva/sclera: Conjunctivae normal. Pupils: Pupils are equal, round, and reactive to light. Neck: Thyroid: No thyromegaly. Cardiovascular: Rate and Rhythm: Normal rate and regular rhythm. Pulses: Normal pulses. Heart sounds: Normal heart sounds. Pulmonary: Effort: Pulmonary effort is normal. No respiratory distress. Breath sounds: Normal breath sounds. No wheezing. Abdominal: General: There is no distension. Palpations: Abdomen is soft. There is no mass. Tenderness: There is no abdominal tenderness. Hernia: No hernia is present. Musculoskeletal: General: No deformity. Normal range of motion. Cervical back: Normal range of motion. Comments: Right leg shows no erythema, right calf 34 cm left calf 31 cm there is significant tenderness along both the right calf right posterior thigh and right knee Skin: General: Skin is warm. Neurological: Mental Status: He is alert and oriented to person, place, and time. Cranial Nerves: No cranial nerve deficit. Psychiatric: Behavior: Behavior normal. Lab Results COMPLETE BLOOD COUNT AND DIFFERENTIAL (In process) HOLD BLUE TOP (In process) COMPREHENSIVE METABOLIC PANEL (CMP) (In process) CK (In process) C REACTIVE PROTEIN (In process) Procedures Procedures * Frederic Lake, KASANDRA - 06/27/20222151 EST Pt transferred from [facility] for RLE DVT. Pt is AAOx4 c/o RLE pain. (MADELAINE Yang notified- no orders received). Pt states his RLE pain started about 2 weeks ago worsening today. Pt denies cp, sob, fever.The right calf is slightly larger than the left calf. Right calf 34cm left calf 31cm. Pulses are diminished in the RLE, cap refill ,3 seconds, color AFE, movement intact. CSM intact to LLE. documented in this encounter Plan of Treatment Not on file documented as of this encounter Procedures Procedure Name Priority Date/Time Associated Diagnosis Comments US LOWER VENOUS DUPLEX (DVT) RIGHT STAT 06/27/2022 22:17 EST HOLD BLUE TOP Routine 06/27/2022 22:00 EST COMPLETE BLOOD COUNT AND DIFFERENTIAL STAT 06/27/2022 22:00 EST C REACTIVE PROTEIN Routine 06/27/2022 21 :57 EST CK Routine 06/27/2022 21:57 EST COMPREHENSIVE METABOLIC PANEL (CMP) STAT 06/27/2022 21:57 EST documented in this encounter Results * US LOWER VENOUS DUPLEX (DVT) RIGHT (06/27/2022 22:17 EST) Anatomical Region Laterality Modality Vascular Ultrasound 06/28/2022 8:52 EST Impressions 06/28/2022 8:52 EST 1. ??No evidence of deep venous thrombosis in the right lower extremity. 2. ??Small likely right popliteal fossa cyst. I have personally reviewed the images and the above interpretation and agree with the findings. Narrative 06/28/2022 8:52 EST US LOWER VENOUS DUPLEX (DVT) RIGHT ??06/27/2022 9:15 PM SIGNS AND SYMPTOMS/COMMENTS: ??calf swelling COMPARISON: None. TECHNIQUE: Grayscale, cine, color Doppler, and spectral tracing images were obtained of the deep venous system of the right lower extremity. FINDINGS: Deep veins above the knee: The external iliac vein, common femoral vein, deep femoral vein at the common femoral vein bifurcation, proximal through distal femoral vein, and popliteal vein all demonstrate normal Doppler flow/waveforms and compression. Deep veins below the knee: The posterior tibial and peroneal veins demonstrate normal Doppler flow. Superficial veins: The proximal portion of the greater saphenous vein demonstrates normal Doppler flow/waveforms and compression. Other: Circumscribed avascular heterogeneously hypoechoic finding measuring 3.5 x 1.5 cm as measured on video clip 420 in the right popliteal fossa likely reflects Neff's cyst, internal echoes can reflect debris and/or hemorrhage.. Procedure Note Jaxon Marino MD - 06/28/2022 US LOWER VENOUS DUPLEX (DVT) RIGHT 06/27/2022 9:15 PM SIGNS AND SYMPTOMS/COMMENTS: calf swelling COMPARISON: None. TECHNIQUE: Grayscale, cine, color Doppler, and spectral tracing imageswere obtained of the deep venous system of the right lower extremity. FINDINGS: Deep veins above the knee: The external iliac vein, common femoral vein,deep femoral vein at the common femoral vein bifurcation, proximal throughdistal femoral vein, and popliteal vein all demonstrate normal Dopplerflow/waveforms and compression. Deep veins below the knee: The posterior tibial and peroneal veinsdemonstrate normal Doppler flow. Superficial veins: The proximal portion of the greater saphenous veindemonstrates normal Doppler flow/waveforms and compression. Other: Circumscribed avascular heterogeneously hypoechoic findingmeasuring 3.5 x 1.5 cm as measured on video clip 420 in the rightpopliteal fossa likely reflects Neff's cyst, internal echoes can reflectdebris and/or hemorrhage.. IMPRESSION 1. No evidence of deep venous thrombosis in the right lower extremity. 2. Small likely right popliteal fossa cyst. I have personally reviewed the images and the above interpretation andagree with the findings. Marko Prado MD IMG VASCULAR ORDE ALLYALLY * HOLD BLUE TOP (06/27/2022 22:00 EST) Hold Hold 06/27/2022 23:15 [facility] Blood VENOUS BLOOD / Unknown Venipuncture / Unknown 06/27/2022 22:00 EST 06/27/2022 22:03 EST Trey Lara PA-C LAB INFO SERVICE AND SUPPORT & PHONE RESULT Performing Organization Address City/State/[facility] Co de Phone Number [facility] [address] [place] [address] * (ABNORMAL) COMPLETE BLOOD COUNT AND DIFFERENTIAL (06/27/2022 22:00 EST) WBC 10.88(H) 4.00 - 10.40 K/cmm 06/27/2022 22:20 [facility] RBC 3.88(L) 4.36 - 5.78 M/cmm 06/27/2022 22:20 [facility] Hemoglobin 12.7(L) 13.8 - 17.3 gm/dL 06/27/2022 22:20 [facility] HCT 38.9(L) 39.5 - 50.2 % 06/27/2022 22:20 [facility] MCV 100(H) 81 - 95 fl 06/27/2022 22:20 [facility] MCH 32.7 27.6 - 33.0 pg 06/27/2022 22:20 [facility] MCHC 32.6(L) 32.8 - 36.4 gm/dL 06/27/2022 22:20 [facility] RDW-CV 14.6(H) <14.2 % 06/27/2022 22:20 [facility] RDW-SD 54.4(H) <46.0 fl 06/27/2022 22:20 [facility] PLT 386(H) 141 - 377 K/cmm 06/27/2022 22:20 [facility] MPV 9.1(L) 9.5 - 12.7 fl 06/27/2022 22:20 [facility] % Neutrophils 72.8 % 06/27/2022 22:20 [facility] % Lymphocytes 15.3 % 06/27/2022 22:20 [facility] % Monocytes 9.1 % 06/27/2022 22:20 [facility] % Eosinophils 2.0 % 06/27/2022 22:20 [facility] % Basophils 0.5 % 06/27/2022 22:20 [facility] % Immature Grans 0.3 % 06/27/19 22:20 [facility] Absolute Neutrophils 7.92 2.20 - 8.85 K/cmm 06/27/2022 22:20 [facility] Absolute Lymphocytes 1.67 1.09 - 3.30 K/cmm 06/27/2022 22:20 [facility] Absolute Monocytes 0.99(H) 0.10 - 0.80 K/cmm 06/27/2022 22:20 [facility] Absolute Eosinophils 0.22 0.03 - 0.61 K/cmm 06/27/2022 22:20 [facility] ABS Basophils 0.05 0.01 - 0.11 K/cmm 06/27/2022 22:20 [facility] Absolute Immature Grans 0.03 0.00 - 0.06 K/cmm 06/27/2022 22:20 [facility] Type of Differential: Auto 06/27/2022 22:20 [facility] Blood VENOUS BLOOD / Unknown Venipuncture / Unknown 06/27/2022 22:00 EST 06/27/2022 22:03 EST Trey Lara PA-C PACKAGES & DNA PROBE ORDERABLES Performing Organization Address City/[facility]/ZIP Co de Phone Number [facility] [address] [place] [address] * C REACTIVE PROTEIN (06/27/2022 21:57 EST) C-Reactive Protein <7.0 <10.0 mg/L 06/27/2022 22:28 EST [facility] Blood VENOUS BLOOD / Unknown Venipuncture / Unknown 06/27/2022 21:57 EST 06/27/2022 22:03 EST Trey Lara PA-C CHEMISTRY & BLOOD GA S ORDERABLES Performing Organization Address [facility] Co de Phone Number [facility] [address] [place] [address] * CK (06/27/2022 21:57 EST) CK 101 <=250 U/L 06/27/2022 22:28 EST [facility] Blood VENOUS BLOOD / Unknown Venipuncture / Unknown 06/27/2022 21:57 EST 06/27/2022 22:03 EST Trey Lara PA-C CHEMISTRY & BLOOD GA S ORDERABLES Performing Organization Address [facility]/ZIP Co de Phone Number [facility] [address] [place] [address] * (ABNORMAL) COMPREHENSIVE METABOLIC PANEL (CMP) (06/27/2022 21:57 EST) Sodium 139 136 - 145 mmol/L 06/27/2022 22:28 EST [facility] Potassium 4.2 3.5 - 5.0 mmol/L 06/27/2022 22:28 EST [facility] Chloride 105 96 - 110 mmol/L 06/27/2022 22:28 EST [facility] CO2 Total 28 22 - 32 mmol/L 06/27/2022 22:28 EST [facility] Glucose 90 70 - 100 mg/dL 06/27/2022 22:28 [facility] BUN 9(L) 10 - 26 mg/dL 06/27/2022 22:28 [facility] Creatinine 0.65(L) 0.66 - 1.25 mg/dL 06/27/2022 22:28 [facility] eGFR 109 >60 mL/min/1.7 3m2 06/27/2022 22:28 [facility] Total Protein 6.4 6.3 - 8.2 g/dL 06/27/2022 22:28 [facility] Albumin 3.7 3.4 - 4.9 g/dL 06/27/2022 22:28 [facility] Alkaline Phosphatase 56 38 - 126 U/L 06/27/2022 22:28 [facility] AST 21 15 - 46 U/L 06/27/2022 22:28 [facility] ALT 16 <50 U/L 06/27/2022 22:28 [facility] Bilirubin, Total <0.5 <1.4 mg/dL 06/27/19 22:28 [facility] Calcium 8.8 8.5 - 10.5 mg/dL 06/27/2022 22:28 [facility] Albumin/Globulin Ratio 1.4 1.0 - 2.5 06/27/2022 22:28 [facility] Anion Gap 6 5 - 14 06/27/2022 22:28 [facility] Blood VENOUS BLOOD / Unknown Venipuncture / Unknown 06/27/2022 21:57 EST 06/27/2022 22:03 EST Trey Lara PA-C CHEMISTRY & BLOOD GA S ORDERABLES [facility] [address] [place] [address] documented in this encounter Visit Diagnoses Diagnosis Acute pain of right knee- Primary documented in this encounter Administered Medications Inactive Administered Medications - up to 3 most recent administrations Medication Order MAR Action Action Date Dose Rate Site ketOROLAC (TORADOL) injection 15 mg 15 mg, intravenous, NOW X1, 1 dose, On 06/27/22 at 2200, STAT Given 06/27/2022 22:19 EST 15 mg documented in this encounter Active and Recently Administered Medications Times are shown in EST. Scheduled Medication Order 06/25/2022 06/26/2022 06/27/2022 ketOROLAC (TORADOL) injection 15 mg (COMPLETED) 15 mg, intravenous, NOW X1, 1 dose, On 06/27/22 at 2200, STAT 2219 (Given - Provid er: Frederic Lake RN) documented in this encounter Orders Medications Ordered That Reji ht Not Have Been Administered Count Last Ordered Date First Ordered Date ketOROLAC (TORADOL) injection 15 mg 1 06/27 documented in this encounter Care Teams Parquetry Layer Relationship Specialty Start Date End Date Lian Parnell FNP [address] [place] [phone] PCP - General Family Medicine - Primary Care 09/16/21 CHARLENE URIOSTEGUI Pulmonary Disease 01/29/21 documented as of this encounter
--- OUTSIDE RECORDS SUMMARY | 2024-02-03 13:14 | XMS_ITS | Encounter Summary ---
Author Organization [facility] Address [address] [place] [address] Care Team Providers Care Starcher And Tenter Range Feeder Name Role Phone Lian Parnell INFORMATION ASSURANCE SPECIALIST Primary Care Provider [phone] Encounter Details Date Type Department Care Team (Late st Contact Info) Description 04/27/2022 Documentation Visit [facility] [address] [place] [address] Taty Flores, RN Social History Tobacco Use [...] Progress Notes * Taty Flores, KASANDRA - 04/27/2022 1510 EST Seen for a 6 months follow up of Lymph node radiation therapy in 2020, he is accompanied by his significant other. Denies finding new swollen nodes. Weight maintained. Still smoking, considering quitting but not now. Pt encouraged to call us for a F/U with our smoking cessation program. documented in this encounter Plan of Treatment Not on file documented as of this encounter Visit Diagnoses Not on filedocumented in this encounter Care Teams Starcher And Tenter Range Feeder Relationship Specialty Start Date End Date Lian Parnell FNP [address] [place] [phone] PCP - General Family Medicine - Primary Care 09/16/21 CHARLENE URIOSTEGUI Pulmonary Disease 01/29/21 documented as of this encounter
--- OUTSIDE RECORDS SUMMARY | 2024-02-03 13:15 | XMS_ITS | Encounter Summary ---
Author Organization [facility] Address [address] [place] [address] Care Team Providers Care Director Automotive Name Role Phone Lynn Solis LINER MAN Primary Care Provider [phone] Lian Parnell CHILDREN'S MINISTER Primary Care Provider [phone] Encounter Details Date Type Department Care Team (Late st Contact Info) Description 06/24/2020 Lab Requisition [facility] Pathology & [place] [address] Outr Resulting Lab, Provider Social History Tobacco Use Types Packs/Day Years [...] Procedure Name Priority Date/Time Associated Diagnosis Comments ANAEROBE CULTURE, REFERENCE Routine 06/23/2020 14:23 EST documented in this encounter Results * ANAEROBE CULTURE, REFERENCE (06/23/2020 14:23 EST) Organism ID No Anaerobes Isolated 06/28/2020 7:48 EST [facility] Tissue ENTIRE UPPER LIMB / Unknown 06/23/2020 14:23 EST 06/24/2020 21:39 EST Provider Outr Resulting Lab MICROBIOLOGY - GENERAL ORDERABLES Performing Organization Address City/State/[facility] Co de Phone Number [facility] [address] [place] [address] documented in this encounter Visit Diagnoses Not on filedocumented in this encounter Care Teams Director Automotive Relationship Specialty Start Date End Date Lynn Solis, LINER MAN [address] [place] [address] PCP - General 05/28/14 09/15/21 Lian Parnell FNP [address] [place] [phone] PCP - General Family Medicine - Primary Care 09/16/21 CHARLENE URIOSTEGUI Pulmonary Disease 01/29/21 documented as of this encounter
--- OUTSIDE RECORDS SUMMARY | 2024-02-03 13:15 | XMS_ITS | Encounter Summary ---
Author Organization [facility] Address [address] [place] [address] Care Team Providers Care Asbestos Textile Supervisor Name Role Phone Lynn Solis TRAILER CHIEF Primary Care Provider [phone] Lian Parnell TRUCK LOADER AND UNLOADER Primary Care Provider [phone] Encounter Details Date Type Department Care Team (Late st Contact Info) Description 09/02/2021 Lab Requisition [facility] Pathology & Laboratory Medicine - [address] [address] Outr Resulting Lab, Provider Social History Tobacco [...] Procedure Name Priority Date/Time Associated Diagnosis Comments HEPATITIS B SURFACE ANTIGEN Routine 09/02/2021 15:40 EDT documented in this encounter Results * HEPATITIS B SURFACE ANTIGEN (09/02/2021 15:40 EDT) Hep B Surface Ag Negative Negative 09/03/2021 11:02 EDT [facility] Blood VENOUS BLOOD / Unknown 09/02/2021 15:40 EDT 09/02/2021 21:42 EDT Provider Outr Resulting Lab CHEMISTRY & BLOOD GAS ORDERABLES [facility] [address] [place] [address] documented in this encounter Visit Diagnoses Not on filedocumented in this encounter Care Teams Asbestos Textile Supervisor Relationship Specialty Start Date End Date Lynn Solis TRAILER CHIEF [address] [place] [address] PCP - General 05/28/14 09/15/21 Lian Parnell FNP [address] [place] [phone] PCP - General Family Medicine - Primary Care 09/16/21 CHARLENE URIOSTEGUI Pulmonary Disease 01/29/21 documented as of this encounter
--- OUTSIDE RECORDS SUMMARY | 2024-02-03 13:15 | XMS_ITS | Encounter Summary ---
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 Follow up Note Fran Justin Sr. :1965 Age:55 y.o. Gender:male Date of Service:01/09/2021 Addendum DOS: 01/08/2021 History of present illness: 1: Classic Hodgkin [...] a restaging PET scan scheduled for 07/16/2020 -09/11/2020 admitted to [facility]: Right middle lobe pneumonia with empyema requiring [...] to gain some weight. Denies B symptoms. 2: Right middle lobe pneumonia with empyema -09/11/2020 admitted via transfer to [facility] diagnosis of right middle lobe pneumonia and empyema. Pigtail catheter inserted TPA therapy initiated x4 cycles, additional pigtail was placed into more lateral collection. Pleural fluid grew strep milligray sensitive to penicillin treated with Augmentin for6 weeks. Pigtail catheter was removed prior to discharge -Needs follow-up CT chest mid November, referral back to Dr. Marko Jordan thoracic surgery at [facility]. 2: History of tobacco abuse. -12/29/2018 CT chest Amairani. No malignancy. Left axilla showing a 1.3 cm lymph node shortness axis. - 11/22/2019 2 pack/day for 46 years for total of 42 pack to pack year history. Followed by Dr Donta hernandez in [place]. -Scheduled for a yearly screening CT chest in December. -01/24/2020 CT [facility]: Stable 6 mm left lower lobe nodule. Diffuse mild centrilobular emphysema. Enlarged morphologically abnormal left axillary lymph node noted short axis I 0.9 cm. Pathologic lymph node is not excluded. -03/27/2020 Recommend smoke cessation 3: Abdominal pain. Physical exam ventral hernia, pending ultrasound -03/18/2020 ultrasound right upper quadrant: Negative gallbladder ultrasound no evidence of cholelithiasis. 5: Left axillary infection post excisional biopsy/seroma. 03/2020 Interim History: Fran comes in for follow-up visit. Appreciate consultation from the malignant hematology clinic at [facility]. Overall seems to continue to improve since admission in for pneumonia andempyema. ROS: Review of Systems Constitutional: Positive for malaise/fatigue (Grade 1 but overall better than a couple of months ago.). Negative for chills, fever and weight loss (May have gained a few pounds). HENT: Negative for sore throat. Respiratory: Positive for cough and shortness of breath. Negative for hemoptysis. Cardiovascular: Negative for chest pain. Gastrointestinal: Negative for abdominal pain, blood in stool, heartburn, melena, nausea and vomiting. Genitourinary: Negative for dysuria. Musculoskeletal: Positive for joint pain and myalgias. Neurological: Positive for weakness. Endo/Heme/Allergies: Does not bruise/bleed easily. Psychiatric/Behavioral: Positive for depression. The patient is nervous/anxious and has insomnia. Vital Signs: Patient Vitals for the past 24 hrs: BP Temp Pulse Resp SpO2 Weight 01/09/21 0934 (!) 152/77 37 ??C (98.6 ??F) 89 18 94 % 57.6 kg (127 lb) Wt Readings from Last 3 Encounters: 01/09/21 57.6 kg (127 lb) 10/09/20 55 kg (121 lb 4.1 oz) 07/10/20 59 kg (130 lb 1.1 oz) Ht Readings from Last 1 Encounters: 03/27/20 162.6 cm (64) Estimated body surface area is 1.61 meters squared as calculated from the following: Height as of 03/27/20: 162.6 cm (64). Weight as of this encounter: 57.6 kg (127 lb). Physical exam: ECOG Performance Status: 2 Physical Exam Constitutional: Comments: Does not appear as thin as before. Appears more content no anxiety or depression. HENT: Head: Normocephalic. Eyes: General: No scleral icterus. Extraocular Movements: Extraocular movements intact. Cardiovascular: Rate and Rhythm: Normal rate and regular rhythm. Pulmonary: Effort: Pulmonary effort is normal. No respiratory distress. Breath sounds: Wheezing present. No rales. Abdominal: Palpations: Abdomen is soft. Musculoskeletal: General: No swelling. Cervical back: Normal range of motion and neck supple. Right lower leg: No edema. Left lower leg: No edema. Comments: Left wrist wrapped in an Ric bandage. Range of motion maintained. Did not appear to be inpain Lymphadenopathy: Cervical: No cervical adenopathy. Upper Body: Right upper body: No supraclavicular, axillary, pectoral or epitrochlear adenopathy. Left upper body: No supraclavicular, axillary, pectoral or epitrochlear adenopathy. Neurological: General: No focal deficit present. Mental Status: He is alert and oriented to person, place, and time. Psychiatric: Mood and Affect: Mood normal. Behavior: Behavior normal. PMHx: Past Medical History: Diagnosis Date ??? Anxiety ??? Depression ??? Emphysema lung ([facility]-CMS) ??? Emphysema of lung (HCC-CMS) ??? ETOH abuse ??? GERD (gastroesophageal reflux disease) ??? 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 Seizures ([facility]) Allergies: Allergies Allergen Reactions ??? Bupropion ??? Wellbutrin [Bupropion Hcl] Seizures per patient Medications: Current Outpatient Medications Medication Sig Dispense Refill Last Dose ??? acetaminophen (TYLENOL) 500 mg tablet Take 1,000 mg by mouth every 6 hours as needed. ??? albuterol (PROVENTIL HFA, VENTOLIN HFA) 90 mcg/Actuation inhaler Inhale 2 Puffs as directed every 4 hours. ??? amoxicillin-clavulanate (AUGMENTIN) 875-125 mg per tablet TAKE ONE TABLET BY MOUTH TWICE A DAY FOR 28 DAYS ??? ASMANEX TWISTHALER 220 mcg/ actuation (30) inhaler - 30 doses INHALE ONE PUFF BY MOUTH INTO THELUNGS NIGHTLY ??? cephalexin (KEFLEX) 500 mg capsule TAKE ONE CAPSULE BY MOUTH FOUR TIMES A DAY FOR 2 WEEKS ??? cetirizine (ZYRTEC) 10 mg tablet TAKE ONE TABLET BY MOUTH AT BEDTIME NIGHTLY ??? cyclobenzaprine (FLEXERIL) 10 mg tablet TAKE ONE TABLET BY MOUTH THREE TIMES A DAY NEEDED FOR MUSCLE SPASMS ??? DOK 100 mg capsule TAKE ONE CAPSULE BY MOUTH TWICE A DAY FOR 10 DAYS ??? doxycycline (ADOXA) 100 mg tablet TAKE ONE TABLET BY MOUTH TWICE A DAY FOR 2 WEEKS ??? DULoxetine (CYMBALTA) 20 mg delayed release capsule Take 20 mg by mouth 2 times daily. ??? DULoxetine (CYMBALTA) 30 mg delayed release capsule Take 30 mg by mouth daily. ??? DULoxetine (CYMBALTA) 60 mg capsule Take by mouth daily. ??? ENSURE liquid DRINK 1 CAN BY MOUTH THREE TIMES A DAY ??? famotidine (PEPCID) 20 mg tablet Take 20 mg by mouth at bedtime. ??? famotidine (PEPCID) 40 mg tablet Take 40 mg by mouth at bedtime. ??? HYDROcodone-acetaminophen (NORCO) 5-325 mg tablet Take 1-2 Tabs by mouth every 6 hours as needed for Pain. ??? HYDROmorphone (DILAUDID) 2 mg tablet TAKE ONE TABLET BY MOUTH EVERY 4 HOURS NEEDED FOR PAIN NOT CONTROLLED BY TYLENOL AND IBUPROFEN ??? lamoTRIgine (LAMICTAL) 100 mg tablet Take 100 mg by mouth 2 times daily. ??? lamoTRIgine (LAMICTAL) 200 mg tablet Take 100 mg by mouth 2 times daily. ??? melatonin 3 mg tablet Take 6 mg by mouth. ??? meloxicam (MOBIC) 15 mg tablet Take 15 mg by mouth daily. ??? methylphenidate HCl (RITALIN;METHYLIN) 20 mg tablet Take 10 mg by mouth 2 times daily. ??? multivitamin capsule Take 1 Cap by mouth daily. ??? NAPROXEN ORAL Take by mouth daily ??? NARCAN 4 mg/actuation nasal spray SPRAY 0.1ML INTO ONE NOSTRIL REPEAT WITH SECOND DEVICE INTO THE OTHER NOSTRIL AFTER 2 3 MINUTES IF NO OR MINIMAL RESPONSE ??? nicotine (NICODERM CQ) 21 mg/24 hr patch APPLY ONE PATCH TO THE SKIN EVERY DAY ??? nicotine polacrilex (NICORETTE) 2 mg gum CHEW 1 PIECE OF EVERY 2 HOURS NEEDED ??? nicotine polacrilex (NICORETTE) 4 mg gum CHEW 1 PIECE BY MOUTH EVERY 2 HOURS NEEDED FOR SMOKING CESSATION NOTHING BUT WATER 15 MINUTES BEFORE OR DURING USE ??? Omeprazole 20 mg tablet,delayed release (DR/EC) Take 20 mg by mouth daily. ??? ondansetron (ZOFRAN-ODT) [address] ONE TABLET UNDER THE TONGUE EVERY 8 HOURS NEEDED FOR NASUEA VOMITING ??? oxyCODONE (ROXICODONE) 5 mg immediate release tablet Take 1-2 Tabs by mouth every 3 hours as needed for Pain. ??? polyethylene glycol (GLYCOLAX) 17 gram/dose powder Take 17 g by mouth daily. ??? predniSONE (DELTASONE) 50 mg tablet TAKE TWO TABLETS BY MOUTH EVERY DAY FOR 5 DAYS ??? pregabalin (LYRICA) 100 mg capsule Take by mouth 3 times daily. ??? pregabalin (LYRICA) 200 mg capsule Take 1 Cap by mouth 3 times daily. ??? prochlorperazine (COMPAZINE) 10 mg tablet TAKE ONE TABLET BY MOUTH EVERY 6 HOURS NEEDED FOR NAUSEA VOMITING ??? QUEtiapine (SEROQUEL) 100 mg tablet Take 100 mg by mouth daily. ??? senna (SENOKOT) 8.6 mg tablet Take 17.2 mg by mouth. ??? sildenafil citrate (VIAGRA) 100 mg tablet Take by mouth daily as needed. ??? TRELEGY ELLIPTA 100-62.5-25 mcg Inhale 1 Puff as directed daily. ??? triamcinolone (KENALOG) 0.1 % cream APPLY TO AFFECTED AREA S THREE TIMES A DAY NEEDED ??? VITAMIN B-12 1,000 mcg tablet Take 1,000 mcg by mouth daily. No current facility-administered medications for this visit. Data Review: Labs: Results for orders placed or performed in visit on 01/01/21 PSA TOTAL, DIAGNOSTIC Result Value Ref Range PSA 1.5 0.0 - 3.5 ng/mL Imaging: Assessment: 1. Hodgkin lymphoma. He received 1 dose of CHOP: Shortly thereafter had psychiatric decompensation requiring inpatient management, after discharge was complaining of progressive carpal tunnel pain inthe right wrist declined further therapy until surgery, performed late May 2020. Few days laterthe wound got infected was admitted to [facility] for IV antibiotics he left AMA before finishing a course. Due to delays in multiple infectious complications and the risk of immunosuppression from further chemotherapy and psychiatric decompensation due to chemotherapy/steroids recommended radiation to the left axilla. Had a complete response. July was admitted to [facility] later transferred to [facility] for pneumonia/empyema. RequiringPleurx catheter x2. Discharge August. Comes in for follow-up. Clinically doing much better gaining weight maintaining activities of dailyliving. Unfortunately still smoking 1 pack/day despite symptomatic COPD. Restaging PET scan last week shows no FDG avid lymphadenopathy. New finding of a left upper lobe FDG avid nodule, differential postinflammatory from recent severe pneumonia, unlikely to be post radiation changes (will check radiation field with Dr. Brady) second malignancy considering history of tobacco abuse. Regarding the lymphoma we will follow clinically for now consider restaging in 6 months or if clinically indicated. Plan: -Send PT images to Dr. Claudio Jordan, [facility] who is following the pneumonia/empyema we will ask him to correlate the left upper lung findings with CT scans done at [facility]. -Review radiation ports with Dr. Brady to see the correlate with the new finding in the left alone. -Copy of the PET scan will be sent to pulmonary department at [facility], has a follow-up CT scan there with his new mortar worker. -If all stable follow-up in 3 months Addendum: Reviewed the CT images with radiation oncology. There is no correlation between the density in the left lung and the radiation field. That area was only radiated peripherally with one port unlikely to cause these changes. Follow-up in 3 months as scheduled. 2: Tobacco abuse smoking 1 packs/day after hospitalization for pneumonia and empyema is try to reduce the amount of cigarettes. Continue to encourage reduction in the amount of cigarettes per day, heis not inclined to stop 3: Malnutrition seems to be improving as he is gained some weight. CC; Herman Coon ONP., Pulmonary at [facility]. Code [id number]: This note was transcribed using Vertigo voice recognition software please excuse any mistranslations. 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 Error 01/09/2021 documented as of this encounter Care Teams Silk Screen Cutter Relationship Specialty Start Date End Date Lynn Solis, [address] [place] [address] PCP - General 05/28/14 09/15/21 CHARLENE URIOSTEGUI Pulmonary Disease 01/29/21 documented as of this encounter
--- OUTSIDE RECORDS SUMMARY | 2024-02-03 13:15 | XMS_ITS | Encounter Summary ---
Author Organization [facility] Address [address] [place] [address] Care Team Providers Care Station Manager Name Role Phone Lynn Solis MANAGER GLOBAL COMMUNICATIONS Primary Care Provider [phone] Lian Parnell PEDIATRIC CARDIOLOGIST Primary Care Provider [phone] Encounter Details Date Type Department Care Team (Late st Contact Info) Description 07/11/2020 Lab Requisition [facility] Pathology & [place] [address] Outr Resulting Lab, Provider Social History Tobacco [...] Procedure Name Priority Date/Time Associated Diagnosis Comments IGM Routine 07/10/2020 16:17 EST documented in this encounter Results * IGM (07/10/2020 16:17 EST) IgM 109 35 - 242 mg/dL 07/12/2020 10:02 EST [facility] Blood VENOUS BLOOD / Unknown 07/10/2020 16:17 EST 07/11/2020 22:37 EST Provider Outr Resulting Lab CHEMISTRY & BLOOD GAS ORDERABLES [facility] [address] [place] [address] documented in this encounter Visit Diagnoses Not on filedocumented in this encounter Care Teams Station Manager Relationship Specialty Start Date End Date Lynn Solis, MANAGER GLOBAL COMMUNICATIONS [address] [place] [address] PCP - General 05/28/14 09/15/21 Lian Parnell, PEDIATRIC CARDIOLOGIST [address] [place] [id number] PCP - General Family Medicine - Primary Care 09/16/21 CHARLENE URIOSTEGUI Pulmonary Disease 01/29/21 documented as of this encounter
--- OUTSIDE RECORDS SUMMARY | 2024-02-03 13:15 | XMS_ITS | Encounter Summary ---
Author Organization [facility] Address [address] [place] [address] Care Team Providers Care Nurse Practitioner Manager Name Role Phone Will Lynn B SCHOOL LEADER Primary Care Provider [phone] Reason for Visit * Reason Onset Date Comments Appointment Related 10/01/2020 Encounter Details Date Type Department Care Team (Late st Contact Info) Description 10/01/2020 Telephone [facility] Adult Hematology & Oncology [address] [place] [id number] Jaxon Stephens MD [address] [place] [address] [address] [place] [phone] Appointment Related Social History Tobacco Use Types [...] Miscellaneous Notes * Telephone Encounter - Melita Epstein RN - 10/03/2020 1446 EDT Called [facility] spoke with Santa, confirmed message was received and scheduled. * Telephone Encounter - Jaxon Stephens MD - 10/01/2020 1711 EDT Recent diagnosis of right lung pneumonia with abscess. Follow-up with thoracic surgeon 09/26/2020 seems to be improving. He needs a follow-up CT chest with contrast last week in November. Left message on [employer] recording machine to schedule. Melita please call confirm she got the message thank you documented in this encounter Plan of Treatment Not on file documented as of this encounter Visit Diagnoses Not on filedocumented in this encounter Care Teams Nurse Practitioner Manager Relationship Specialty Start Date End Date Lynn Solis NP [address] [place] [address] PCP - General 05/28/14 09/15/21 documented as of this encounter
--- OUTSIDE RECORDS SUMMARY | 2024-02-03 13:15 | XMS_ITS | Encounter Summary ---
Author Organization [facility] Address [address] [place] [address] Care Team Providers Care Black Belt Name Role Phone Lynn Solis FIOS LINE INSTALLER Primary Care Provider [phone] Lian Parnell ENVIRONMENTAL EMERGENCIES ASSISTANT Primary Care Provider [phone] Encounter Details Date Type Department Care Team (Late st Contact Info) Description 09/02/2021 Lab Requisition [facility] Pathology & Laboratory Medicine - [address] [address] Outr Resulting Lab, Provider Social History Tobacco [...] Name Priority Date/Time Associated Diagnosis Comments HEPATITIS C AB W REFLEX TO HCV RNA BY PCR Routine 09/02/2021 15:40 EDT documented in this encounter Results * HEPATITIS C AB W REFLEX TO HCV RNA BY PCR (09/02/2021 15:40 EDT) Hep C Antibody Negative Negative 09/03/2021 11:21 EDT [facility] Blood VENOUS BLOOD / Unknown 09/02/2021 15:40 EDT 09/02/2021 21:42 EDT Provider Outr Resulting Lab CHEMISTRY & BLOOD GAS ORDERABLES Performing Organization Address City/State/[facility] Co de Phone Number [facility] [address] [place] [address] documented in this encounter Visit Diagnoses Not on filedocumented in this encounter Care Teams Black Belt Relationship Specialty Start Date End Date Lynn Solis NP [address] [place] [address] PCP - General 05/28/14 09/15/21 Lian Parnell FNP [address] [place] [phone] PCP - General Family Medicine - Primary Care 09/16/21 CHARLENE URIOSTEGUI Pulmonary Disease 01/29/21 documented as of this encounter
--- OUTSIDE RECORDS SUMMARY | 2024-02-03 13:15 | XMS_ITS | Encounter Summary ---
Author Organization [facility] Address [address] [place] [address] Care Team Providers Care Risk Management Consultant Name Role Phone Will Lynn Iris TIERNEY Primary Care Provider [phone] Reason for Visit * Reason Comments Follow-up Encounter Details Date Type Department Care Team (Late st Contact Info) Description 07/10/2020 15:30 EST Office Visit [facility] Adult Hematology & Oncology [facility] [place], [place] [id number] Vira Chavez MD [address] [place] [address], [facility] [place] [address] [place] [address] 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); Panlobular emphysema (HCC-CMS); Tobacco abuse; Nutrition deficiency due to a particular kind of food Social History Tobacco Use Types Packs/Day Years [...] Sign Reading Time Taken Comments Blood Pressure 142/74 07/10/2020 1554 EST Pulse 78 07/10/2020 1554 EST Temperature 36.5 ??C (97.7 ??F) 07/10/2020 1554 EST Respiratory Rate 18 07/10/2020 1554 EST Oxygen Saturation 98% 07/10/2020 1554 EST Inhaled Oxygen Concentration - - Weight 59 kg (130 lb 1.1 oz) 07/10/2020 1554 EST Height - - Body Mass Index 22.33 03/27/2020 1518 EDT documented in this encounter [...] as of this encounter Progress Notes * Vira Chavez MD - 07/10/2020 1530 EST Hem/Onc. Follow up Note Fran Justin Sr. :1965 Age:55 y.o. Gender:male Date of Service:07/10/2020 History of present illness: 1: Classic Hodgkin [...] oxygen dependent, still smoking. Recommend R-CHOP x -04/15/2020 Cycle # 1. Rash at 1 [...] a restaging PET scan scheduled for 07/16/2020 2: History of tobacco abuse. -12/29/2018 CT chest [facility]. No malignancy. Left axilla showing a 1.3 cm lymph node shortness axis. - 11/22/2019 2 pack/day for 46 years for total of 42 pack to pack year history. Followed by Dr Donta hernandez in [place]. -Scheduled for a yearly screening CT chest [...] 03/2020 Interim History: Fran comes in for reevaluation. Had a carpal tunnel's surgery 3 weeks ago few days after that the wound got infected was admitted to [facility] for IV antibiotics, after few days he left AMA,he did agree to continue with oral antibiotics. States his hand does not hurt as much he feels it is improving, he is still compliant with antibiotics. Still smoking 2 packs of cigarettes per day, drinking several cups of coffee, 2 L of Coca-Cola and only has 1 meal in the evening. He is accompanied by his significant other who corroborates all this information. ROS: Review of Systems Constitutional: Positive for malaise/fatigue. Negative for chills and fever. HENT: Negative for sore throat. Respiratory: Positive for cough and shortness of breath. Negative for hemoptysis. Cardiovascular: Negative for chest pain. Gastrointestinal: Negative for abdominal pain, heartburn, nausea and vomiting. Musculoskeletal: Positive for joint pain and myalgias. Pain in the right hand with numbness 5/10. Neurological: Positive for weakness. Psychiatric/Behavioral: Positive for depression. The patient is nervous/anxious and has insomnia. Vital Signs: Patient Vitals for the past 24 hrs: BP Temp Pulse Resp SpO2 Weight 07/10/20 1554 (!) 142/74 36.5 ??C (97.7 ??F) 78 18 98 % 59 kg (130 lb 1.1 oz) Wt Readings from Last 3 Encounters: 07/10/20 59 kg (130 lb 1.1 oz) 06/12/20 58 kg (127 lb 13.9 oz) 03/27/20 59.3 kg (130 lb 12.8 oz) Ht Readings from Last 1 Encounters: 03/27/20 162.6 cm (64) Estimated body surface area is 1.63 meters squared as calculated from the following: Height as of 03/27/20: 162.6 cm (64). Weight as of this encounter: 59 kg (130 lb 1.1 oz). Physical exam: ECOG Performance Status: 2 Physical Exam Constitutional: Comments: Appears thin, does not appear in distress ambulating on his own power. Right hand is wrapped in an Ric bandage which appears somewhat dirty, there is no bleeding is no foul smell. HENT: Head: Normocephalic. Eyes: General: No scleral icterus. Extraocular Movements: Extraocular movements intact. Neck: Musculoskeletal: Normal range of motion and neck supple. Cardiovascular: Rate and Rhythm: Normal rate and regular rhythm. Pulmonary: Effort: Pulmonary effort is normal. No respiratory distress. Breath sounds: Wheezing and rales present. Abdominal: Palpations: Abdomen is soft. Musculoskeletal: General: [...] No supraclavicular, axillary, pectoral or epitrochlear adenopathy. Comments: Surprisingly no lymphadenopathy in the left axilla left infraclavicular or supraclavicular region. Neurological: General: No focal deficit present. Mental Status: He is alert and oriented to person, place, and time. Psychiatric: Mood and Affect: Mood normal. Behavior: Behavior normal. PMHx: Past Medical History: Diagnosis Date ??? Anxiety ??? Depression ??? Emphysema lung ([facility]) ??? Emphysema of lung ([facility]) ??? ETOH abuse ??? GERD (gastroesophageal reflux disease) ??? 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 Seizures ([facility]) Allergies: Allergies Allergen Reactions ??? Wellbutrin [Bupropion Hcl] Seizures per patient Medications: Current Outpatient Medications Medication Sig Dispense Refill Last Dose ??? albuterol (PROVENTIL HFA, VENTOLIN HFA) 90 mcg/Actuation inhaler Inhale 2 Puffs as directed every 4 hours. ??? DULoxetine (CYMBALTA) 20 mg delayed release capsule Take 20 mg by mouth 2 times daily. ??? DULoxetine (CYMBALTA) 30 mg delayed release capsule Take 30 mg by mouth daily. ??? famotidine (PEPCID) 40 mg tablet Take 40 mg by mouth at bedtime. ??? HYDROcodone-acetaminophen (NORCO) 5-325 mg tablet Take 1-2 Tabs by mouth every 6 hours as needed for Pain. ??? lamoTRIgine (LAMICTAL) 100 mg tablet Take 100 mg by mouth 2 times daily. ??? lamoTRIgine (LAMICTAL) 200 mg tablet Take 200 mg by mouth 2 times daily. ??? meloxicam (MOBIC) 15 mg tablet Take 15 mg by mouth daily. ??? methylphenidate HCl (RITALIN;METHYLIN) 5 mg tablet Take 5 mg by mouth daily. ??? NAPROXEN ORAL Take by mouth daily ??? Omeprazole 20 mg tablet,delayed release (DR/EC) Take 20 mg by mouth daily. ??? oxyCODONE (ROXICODONE) 5 mg immediate release tablet Take 1-2 Tabs by mouth every 3 hours as needed for Pain. ??? pregabalin (LYRICA) 200 mg capsule Take 1 Cap by mouth 3 times daily. ??? QUEtiapine (SEROQUEL) 100 mg tablet Take 100 mg by mouth daily. ??? sildenafil citrate (VIAGRA) 100 mg tablet Take by mouth daily as needed. ??? TRELEGY ELLIPTA 100-62.5-25 mcg Inhale 1 Puff as directed daily. ??? VITAMIN B-12 1,000 mcg tablet Take 1,000 mcg by mouth daily. No current facility-administered medications for this visit. Data Review: Labs: Results for orders placed or performed in visit on 06/23/20 ANAEROBE CULTURE, REFERENCE Specimen: Arm; Tissue Result Value Ref Range Organism ID No Anaerobes Isolated Imaging: Assessment: 1. Hodgkin lymphoma. He received 1 dose of CHOP: Shortly thereafter had psychiatric decompensation requiring inpatient management, after discharge was complaining of progressive carpal tunnel pain inthe right wrist declined further therapy until that surgery, performed late May. Few days laterthe wound got infected was admitted to [facility] for IV antibiotics he left AMA before finishing a course. He has been home for about 2 weeks with oral antibiotics. States that the wound seems to be healing. Has a follow-up with orthopedics within the next few days for reevaluation, he continues on oral antibiotics. We will need to discuss treatment after the infection is resolved and after he gets a port placement. The meantime we will need to restage get baseline labs and PET scan in preparation. Plan: -Labs for today including CBC comprehensive metabolic CRP. -Repeat PET scan next week. 2. Malnutrition, recurrent infections. Suspect he may have hypogammaglobulinemia we will check IgG and IgM levels, if the IgG is less than 500 consider IVIG 0.5 g/kg every 3 to 4 weeks. 3. Tobacco abuse still smoking 2 packs/day he is unable to stop and is not interested. 4. Malnutrition multiple times encouraging to eat more adequate meals still not doing it. He needs half a plate of food in the evening the rest of the day he drinks coffee and Coca-Cola. Continue to encourage a more balanced diet, his significant other is also has been pushing for this but unfortunately Fran is not able to do so. CC; Dr Claudio Solis, Dr Brooks, [facility] ONP. 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 Duplicate order 01/15/2020 07/11/2020 documented as of this encounter Historical Medications * This list may reflect changes made after this encounter. Medication Sig Dispensed Refills Start Date End Date multivitamin capsule Take 1 Capsule by mouth daily. methylphenidate HCl (RITALIN;METHYLIN) 20 mg tablet Take 0.5 Tablets by mouth 2 times daily. 06/22/2020 DULoxetine (CYMBALTA) 60 mg capsule Take by mouth daily. 06/26/2020 ENSURE liquid DRINK 1 CAN BY MOUTH THREE TIMES A DAY 06/18/2020 cetirizine (ZYRTEC) 10 mg tablet TAKE ONE TABLET BY MOUTH AT BEDTIME NIGHTLY 06/03/2020 triamcinolone (KENALOG) 0.1 % cream APPLY TO AFFECTED AREA S THREE TIMES A DAY NEEDED 05/07/2020 11/02/2022 prochlorperazine (COMPAZINE) 10 mg tablet TAKE ONE TABLET BY MOUTH EVERY 6 HOURS NEEDED FOR NAUSEA VOMITING 05/29/2020 04/27/2022 predniSONE (DELTASONE) 50 mg tablet TAKE TWO TABLETS BY MOUTH EVERY DAY FOR 5 DAYS 04/11/2020 04/27/2022 ondansetron (ZOFRAN-ODT) [address] ONE TABLET UNDER THE TONGUE EVERY 8 HOURS NEEDED FOR NASUEA VOMITING 04/11/2020 04/27/2022 nicotine (NICODERM CQ) 21 mg/24 hr patch APPLY ONE PATCH TO THE SKIN EVERY DAY 06/25/2020 11/02/2022 NARCAN 4 mg/actuation nasal spray SPRAY 0.1ML INTO ONE NOSTRIL REPEAT WITH SECOND DEVICE INTO THE OTHER NOSTRIL AFTER 2 3 MINUTES IF NO OR MINIMAL RESPONSE 06/14/2020 11/02/2022 doxycycline (ADOXA) 100 mg tablet TAKE ONE TABLET BY MOUTH TWICE A DAY FOR 2 WEEKS 06/25/2020 11/02/2022 cephalexin (KEFLEX) 500 mg capsule TAKE ONE CAPSULE BY MOUTH FOUR TIMES A DAY FOR 2 WEEKS 06/25/2020 11/02/2022 added in this encounter Care Teams Risk Management Consultant Relationship Specialty Start Date End Date Lynn Solis, ADMINISTRATIVE SALES ASSISTANT [address] [place] [address] PCP - General 05/28/14 09/15/21 documented as of this encounter
--- OUTSIDE RECORDS SUMMARY | 2024-02-03 13:15 | XMS_ITS | Encounter Summary ---
Author Organization [facility] Address [address] [place] [address] Care Team Providers Care Nail Machine Operator Name Role Phone Lynn Solis WEBSITE DESIGNER Primary Care Provider [phone] Lian Parnell LINE PATROLLER Primary Care Provider [phone] Encounter Details Date Type Department Care Team (Late st Contact Info) Description 09/02/2021 Lab Requisition [facility] Pathology & Laboratory Medicine - [address] [address] Outr Resulting Lab, Provider Social History Tobacco [...] Procedure Name Priority Date/Time Associated Diagnosis Comments HIV 1/2 ANTIGEN AND ANTIBODY, 4TH GENERATION Routine 09/02/2021 15:40 EDT documented in this encounter Results * HIV 1/2 ANTIGEN AND ANTIBODY, 4TH GENERATION (09/02/2021 15:40 EDT) HIV 1 and 2 Antibody/p24 Antigen, 4th Generation Negative Negative 09/03/2021 12:27 EDT [facility] Comment:If acute HIV-1 infec tion is suspected in a high risk patient, submit plasma specimen for HIV-1 RNA quantitation test. Blood VENOUS BLOOD / Unknown 09/02/2021 15:40 EDT 09/02/2021 21:42 EDT Narrative [facility] - 09/03/2021 12:27 EDT Fourth Generation assay performed on the Siemens Centaur XPT. Provider Outr Resulting Lab IMMUNOLOGY A ND SEROLOGY ORDERABLES Performing Organization Address City/State/[facility] Co de Phone Number [facility] [address] [place] [address] documented in this encounter Visit Diagnoses Not on filedocumented in this encounter Care Teams Nail Machine Operator Relationship Specialty Start Date End Date Lynn Solis NP [address] [place] [id number] PCP - General 05/28/14 09/15/21 Lian Parnell FNP [address] [place] [address] PCP - General Family Medicine - Primary Care 09/16/21 CHARLENE URIOSTEGUI Pulmonary Disease 01/29/21 documented as of this encounter
--- OUTSIDE RECORDS SUMMARY | 2024-02-03 13:15 | XMS_ITS | Encounter Summary ---
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 09/18/2020 QUEtiapine (SEROQUEL) 100 mg tablet Take 1 [...] DAY NEEDED FOR MUSCLE SPASMS 09/17/2020 11/02/2022 doxycycline (ADOXA) 100 mg tablet TAKE [...] 40 mg by mouth at bedtime. 11/02/2022 HYDROcodone-acetaminophen (NORCO) 5-325 mg tablet Take 1-2 [...] MINUTES BEFORE OR DURING USE 10/01/2020 11/02/2022 Omeprazole 20 mg tablet,delayed release (DR/EC) Take 20 mg by mouth daily. 04/27/2022 ondansetron (ZOFRAN-ODT) [address] ONE TABLET UNDER THE TONGUE EVERY 8 HOURS NEEDED FOR NASUEA VOMITING 04/11/2020 04/27/2022 oxyCODONE (ROXICODONE) 5 mg immediate release tablet Take 1-2 Tabs by mouth every 3 hours as needed for Pain. 03/14/2020 11/02/2022 predniSONE (DELTASONE) 50 mg tablet TAKE TWO TABLETS BY MOUTH EVERY DAY FOR 5 DAYS 04/11/2020 04/27/2022 pregabalin (LYRICA) 100 mg capsule Take by mouth 3 times daily. 09/17/2020 11/02/2022 pregabalin (LYRICA) 200 mg capsule Take 1 Cap by mouth 3 times daily. 02/29/2020 04/27/2022 prochlorperazine (COMPAZINE) 10 mg tablet TAKE ONE TABLET BY MOUTH EVERY 6 HOURS NEEDED FOR NAUSEA VOMITING 05/29/2020 04/27/2022 senna (SENOKOT) 8.6 mg tablet Take 17.2 mg by mouth. 09/17/2020 04/27/2022 sildenafil citrate (VIAGRA) 100 mg tablet Take by mouth daily as needed. 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 No lymphadenopathy. No enlarged axillary node [...] lobe, likely reflecting a mild infectious/inflammatory process. Narrative 10/02/2021 16:58 EDT INDICATION: right axilla node, s/p radiation left axilla 09/18 for hodgkins dis.; Hematologic malignancy, monitor TECHNIQUE: CT of the chest, abdomen and pelvis was obtained after the administration of intravenous contrast. Multiplanar reconstruction was generated. COMPARISON: PET/CT 12/31/2020 and 07/23/2020. CT chest 01/24/2020. FINDINGS: CHEST: Lower neck: No abnormalities. Chest wall soft tissues: No abnormalities. Mediastinum and keith: No enlarged mediastinal or hilar lymph nodes. ??A tiny hiatal hernia is present. Heart and mediastinal vasculature: ??No abnormalities. Large airways: ??Moderate diffuse large airways thickening with scattered mucous plugs. Lungs: ??Bandlike opacity at the periphery of the left midlung. There is a dense nodular component to this opacity that measures 7 x 10 mm (axial series 205 image 111). On the PET/CT 01/01/2020, there was a bandlike opacity at this location that was FDG avid, but this area now appears more nodular. A developing neoplastic process cannot be excluded. Severe emphysema is present. Scattered branching tree-in-bud type micronodular opacities in the right upper lobe likely reflect a mild infectious/inflammatory process. A 5 mm nodule left lung base is unchanged compared to December 2019 (series 205 image 263). A few additional sub-6 mm nodules are also unchanged. Pleura: No abnormalities. Bones: ??Anterior wedging compression deformities at T12 and L1, [...] wall: Intact. Musculoskeletal: No acute osseous abnormality. Procedure Note Kody Parry MD - 10/02/2021 INDICATION: right axilla node, s/p radiation left axilla 09/18 for hodgkinsdis.; Hematologic malignancy, monitor TECHNIQUE: CT of the chest, abdomen and pelvis was obtained after theadministration of intravenous contrast. Multiplanar reconstruction wasgenerated. COMPARISON: PET/CT 12/31/2020 and 07/23/2020. CT chest 01/24/2020. FINDINGS: CHEST: Lower neck: No abnormalities. Chest wall soft tissues: No abnormalities. Mediastinum and keith: No enlarged mediastinal or hilar lymph nodes. Atiny hiatal hernia is present. Heart and mediastinal vasculature: No abnormalities. Large airways: Moderate diffuse large airways thickening with scatteredmucous plugs. Lungs: Bandlike opacity at the periphery of the left midlung. There is adense nodular component to this opacity that measures 7 x 10 mm (axialseries 205 image 111). On the PET/CT 01/01/2020, there was a bandlikeopacity at this location that was FDG avid, but this area now appears morenodular. A developing neoplastic process cannot be excluded. Severeemphysema is present. Scattered branching tree-in-bud type micronodularopacities in the right upper lobe likely reflect a mildinfectious/inflammatory process. A 5 mm nodule left lung base is unchangedcompared to December 2019 (series 205 image 263). A few additional sub-6 mmnodules are also unchanged. Pleura: No abnormalities. Bones: Anterior wedging compression deformities at T12 and L1, unchangedsince at least December 2019. Healing right lateral 6th rib fracture. Nosuspicious osseous lesions. ABDOMEN AND PELVIS: Hepatobiliary: No abnormalities. Spleen, pancreas, adrenal glands: No abnormalities. Kidneys, ureters, bladder: Small left renal cysts. Mild diffuse thickeningof the urinary bladder wall, nonspecific. Reproductive: Prostate mildly enlarged Bowel: No bowel obstruction or focal bowel wall thickening. Moderatecolonic stool burden. Peritoneal cavity / Subperitoneal space: No free fluid or freeintraperitoneal air. Lymphovascular: Atherosclerosis. No lymphadenopathy. Abdominal wall: Intact. Musculoskeletal: No acute osseous abnormality. IMPRESSION 1. No lymphadenopathy. No enlarged axillary node at this time. 2. Bandlike left upper lobe opacity. This may reflect postradiationchange. However, there is a developing solid nodular component inmeasuring 7 x 10 mm. Note that this area was FDG avid on the most recentPET/CT. Developing bronchogenic carcinoma cannot be excluded in this highrisk patient. Recommend either repeat PET/CT or short term follow up CT. 3. Emphysema. 4. Additional branching tree-in-bud type micronodular opacities in theright upper lobe, likely reflecting a mild infectious/inflammatoryprocess. Ed Brady MD IMG CT ORDERABLES * CT CHEST W CONTRAST (10/02/2021 14:58 EDT) Anatomical Region Laterality Modality Chest Computed Tomogra phy 10/02/2021 16:5 8 EDT Impressions 10/02/2021 16:58 EDT 1. No lymphadenopathy. No enlarged axillary node [...] lobe, likely reflecting a mild infectious/inflammatory process. Narrative 10/02/2021 16:58 EDT INDICATION: right axilla node, s/p radiation left axilla 09/18 for hodgkins dis.; Hematologic malignancy, monitor TECHNIQUE: CT of the chest, abdomen and pelvis was obtained after the administration of intravenous contrast. Multiplanar reconstruction was generated. COMPARISON: PET/CT 12/31/2020 and 07/23/2020. CT chest 01/24/2020. FINDINGS: CHEST: Lower neck: No abnormalities. Chest wall soft tissues: No abnormalities. Mediastinum and keith: No enlarged mediastinal or hilar lymph nodes. ??A tiny hiatal hernia is present. Heart and mediastinal vasculature: ??No abnormalities. Large airways: ??Moderate diffuse large airways thickening with scattered mucous plugs. Lungs: ??Bandlike opacity at the periphery of the left midlung. There is a dense nodular component to this opacity that measures 7 x 10 mm (axial series 205 image 111). On the PET/CT 01/01/2020, there was a bandlike opacity at this location that was FDG avid, but this area now appears more nodular. A developing neoplastic process cannot be excluded. Severe emphysema is present. Scattered branching tree-in-bud type micronodular opacities in the right upper lobe likely reflect a mild infectious/inflammatory process. A 5 mm nodule left lung base is unchanged compared to December 2019 (series 205 image 263). A few additional sub-6 mm nodules are also unchanged. Pleura: No abnormalities. Bones: ??Anterior wedging compression deformities at T12 and L1, [...] wall: Intact. Musculoskeletal: No acute osseous abnormality. Procedure Note Kody Parry MD - 10/02/2021 INDICATION: right axilla node, s/p radiation left axilla 09/18 for hodgkinsdis.; Hematologic malignancy, monitor TECHNIQUE: CT of the chest, abdomen and pelvis was obtained after theadministration of intravenous contrast. Multiplanar reconstruction wasgenerated. COMPARISON: PET/CT 12/31/2020 and 07/23/2020. CT chest 01/24/2020. FINDINGS: CHEST: Lower neck: No abnormalities. Chest wall soft tissues: No abnormalities. Mediastinum and keith: No enlarged mediastinal or hilar lymph nodes. Atiny hiatal hernia is present. Heart and mediastinal vasculature: No abnormalities. Large airways: Moderate diffuse large airways thickening with scatteredmucous plugs. Lungs: Bandlike opacity at the periphery of the left midlung. There is adense nodular component to this opacity that measures 7 x 10 mm (axialseries 205 image 111). On the PET/CT 01/01/2020, there was a bandlikeopacity at this location that was FDG avid, but this area now appears morenodular. A developing neoplastic process cannot be excluded. Severeemphysema is present. Scattered branching tree-in-bud type micronodularopacities in the right upper lobe likely reflect a mildinfectious/inflammatory process. A 5 mm nodule left lung base is unchangedcompared to December 2019 (series 205 image 263). A few additional sub-6 mmnodules are also unchanged. Pleura: No abnormalities. Bones: Anterior wedging compression deformities at T12 and L1, unchangedsince at least December 2019. Healing right lateral 6th rib fracture. Nosuspicious osseous lesions. ABDOMEN AND PELVIS: Hepatobiliary: No abnormalities. Spleen, pancreas, adrenal glands: No abnormalities. Kidneys, ureters, bladder: Small left renal cysts. Mild diffuse thickeningof the urinary bladder wall, nonspecific. Reproductive: Prostate mildly enlarged Bowel: No bowel obstruction or focal bowel wall thickening. Moderatecolonic stool burden. Peritoneal cavity / Subperitoneal space: No free fluid or freeintraperitoneal air. Lymphovascular: Atherosclerosis. No lymphadenopathy. Abdominal wall: Intact. Musculoskeletal: No acute osseous abnormality. IMPRESSION 1. No lymphadenopathy. No enlarged axillary node at this time. 2. Bandlike left upper lobe opacity. This may reflect postradiationchange. However, there is a developing solid nodular component inmeasuring 7 x 10 mm. Note that this area was FDG avid on the most recentPET/CT. Developing bronchogenic carcinoma cannot be excluded in this highrisk patient. Recommend either repeat PET/CT or short term follow up CT. 3. Emphysema. 4. Additional branching tree-in-bud type micronodular opacities in theright upper lobe, likely reflecting a mild infectious/inflammatoryprocess. 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) documented in this encounter Administered Medications Inactive Administered Medications - up to 3 most recent administrations Medication Order MAR Action Action Date Dose Rate Site iohexoL (OMNIPAQUE 350) solution 100 mL 100 mL, intravenous, Once in imaging, 1 dose, Starting on Kamila 10/02/21 at 1445, Until Kamila 10/02/21 at 1459, Routine, Imaging Protocol Orders Given 10/02/2021 14:59 EDT 100 mL documented in this encounter Orders Medications Ordered That Reji ht Not Have Been Administered Count Last Ordered Date First Ordered Date iohexoL (OMNIPAQUE 350) solution 100 mL 1 0 10/02/2021 documented in this encounter Care Teams Coil Winder Hand Relationship Specialty Start Date End Date Lian Parnell, STEAM CONDITIONER FILLING [address] [place] [phone] PCP - General Family Medicine - Primary Care 09/16/21 CHARLENE URIOSTEGUI Pulmonary Disease 01/29/21 documented as of this encounter
--- OUTSIDE RECORDS SUMMARY | 2024-02-03 13:15 | XMS_ITS | Encounter Summary ---
Author Organization [facility] Address [address] [place] [address] Care Team Providers Care Dike Supervisor Name Role Phone Lynn Solis RELIEF MASTER Primary Care Provider [phone] Lian Parnell DOG RACES MANAGER Primary Care Provider [phone] Encounter Details Date Type Department Care Team (Late st Contact Info) Description 09/02/2021 Lab Requisition [facility] Pathology & Laboratory Medicine - [address] [address] Outr Resulting Lab, Provider Social History Tobacco [...] Procedure Name Priority Date/Time Associated Diagnosis Comments VITAMIN B12 Routine 09/02/2021 15:40 EDT documented in this encounter Results * (ABNORMAL) VITAMIN B12 (09/02/2021 15:40 EDT) Vitamin B12 >2,000(H) 211 - 911 pg/mL 09/02/2021 22:46 EDT [facility] Blood VENOUS BLOOD / Unknown 09/02/2021 15:40 EDT 09/02/2021 21:42 EDT Provider Outr Resulting Lab CHEMISTRY & BLOOD GAS ORDERABLES [facility] [address] [place] [address] documented in this encounter Visit Diagnoses Not on filedocumented in this encounter Care Teams Dike Supervisor Relationship Specialty Start Date End Date Lynn Solis NP [address] [place] [address] PCP - General 05/28/14 09/15/21 Lian Parnell FNP [address] [place] [phone] PCP - General Family Medicine - Primary Care 09/16/21 CHARLENE URIOSTEGUI Pulmonary Disease 01/29/21 documented as of this encounter
--- OUTSIDE RECORDS SUMMARY | 2024-02-03 13:15 | XMS_ITS | Encounter Summary ---
Author Organization [facility] Address [address] [place] [address] Care Team Providers Care Machine Stamper Name Role Phone Lynn Solis DESK OPERATOR Primary Care Provider [phone] Lian Parnell JOURNEYMAN WIREMAN Primary Care Provider [phone] Encounter Details Date Type Department Care Team (Late st Contact Info) Description 03/25/2021 Lab Requisition [facility] Pathology & [place] [address] Outr Resulting Lab, Provider Social History Tobacco [...] 1/2 ANTIGEN AND ANTIBODY, 4TH GENERATION Routine 03/24/2021 18:07 EDT documented in this encounter Results * HIV 1/2 ANTIGEN AND ANTIBODY, 4TH GENERATION (03/24/2021 18:07 EDT) HIV 1 and 2 Antibody/p24 Antigen, 4th Generation Negative Negative 03/26/2021 14:[address] [facility] Comment: If acute HIV-1 infection is suspected in a high risk ??patient, submit plasma specimen for HIV-1 RNA quantitation test. Fourth Generation assay performed on the [employer]. Blood VENOUS BLOOD / Unknown 03/24/2021 18:07 EDT 03/25/2021 16:16 EDT Provider Outr Resulting Lab IMMUNOLOGY A ND SEROLOGY ORDERABLES Performing Organization Address City/State/[facility] Co de Phone Number [facility] [address] [place] [address] documented in this encounter Visit Diagnoses Not on filedocumented in this encounter Care Teams Machine Stamper Relationship Specialty Start Date End Date Lynn Solis NP [address] [place] [address] PCP - General 05/28/14 09/15/21 Lian Parnell FNP [address] [place] [address] PCP - General Family Medicine - Primary Care 09/16/21 CHARLENE URIOSTEGUI Pulmonary Disease 01/29/21 documented as of this encounter
--- OUTSIDE RECORDS SUMMARY | 2024-02-03 13:15 | XMS_ITS | Encounter Summary ---
Author Organization [facility] Address [address] [place] [address] Care Team Providers Care Anthropometrist Name Role Phone Will Lynn B METAL TUBE CUTTER Primary Care Provider [phone] Reason for Visit * Reason Onset Date Comments Appointment Related 09/18/2020 Encounter Details Date Type Department Care Team (Late st Contact Info) Description 09/18/2020 Telephone [facility] Adult Hematology & Oncology [address] [place] [phone] Jaxon Stephens MD [address] [place] [address] [address] [place] [phone] Appointment Related Social History Tobacco Use Types [...] encounter Miscellaneous Notes * Telephone Encounter - Veronica Guzmán - 09/19/2020 0850 EDT Emailed Rula and Santa at [facility] * Telephone Encounter - Jaxon Stephens MD - 09/18/2020 1844 EDT Next available appointment at [facility] could be in 3 weeks let him recover. Thank you * Telephone Encounter - Holli Martínez - 09/18/2020 1404 EDT PT just got out of [facility] after 10 days he was there for severe case of pneumonia, so he cancelled his appt., for today. Please call to advise, and when would you like a F/U thank you documented in this encounter Plan of Treatment Not on file documented as of this encounter Visit Diagnoses Not on filedocumented in this encounter Care Teams Anthropometrist Relationship Specialty Start Date End Date Lynn Solis NP [address] [place] [id number] PCP - General 05/28/14 09/15/21 documented as of this encounter
--- OUTSIDE RECORDS SUMMARY | 2024-02-03 13:15 | XMS_ITS | Encounter Summary ---
Author Organization [facility] Address [address] [place] [address] Care Team Providers Care Field Captain Name Role Phone Lynn Solis NP Primary Care Provider Reason for Visit * (Routine) - Receiving Office to Obtain Authorization Specialty Diagnoses / Procedures Referred By Mavis rhodes Referred To Contact Procedures CT OUTSIDE IMAGES CHEST Unknown, Provider, Referral ID Status Reason Start Date Expiration Date Visits Requested Visits Authorized [id number] Receiving Office to Obtain Authorization 09/11/2020 1 1 Encounter Details Date Type Department Care Team (Latest Contact Info) Description 09/10/2020 - 09/10/2020 23:59 EDT Hospital Encounter [facility] Secondary Reads [place] Discharge Disposition: Home or Self Care Social [...] Sig Dispensed Refills Start Date End Date albuterol (PROVENTIL HFA, VENTOLIN HFA) 90 mcg/Actuation inhaler Inhale 2 Puffs as directed every 4 hours. cetirizine (ZYRTEC) 10 mg tablet TAKE ONE TABLET BY MOUTH AT BEDTIME NIGHTLY 06/03/2020 DULoxetine (CYMBALTA) 60 mg capsule Take by [...] daily. NAPROXEN ORAL Take by mouth daily. QUEtiapine (SEROQUEL) 100 mg tablet Take 1 Tablet by mouth daily. TRELEGY ELLIPTA 100-62.5-25 mcg Inhale 1 Puff as directed daily. 03/07/2020 VITAMIN B-12 1,000 mcg tablet Take 1 Tablet by mouth daily. 01/23/2020 cephalexin (KEFLEX) 500 mg capsule TAKE ONE CAPSULE BY MOUTH FOUR TIMES A DAY FOR 2 WEEKS 06/25/2020 11/02/2022 doxycycline (ADOXA) 100 mg tablet TAKE ONE TABLET BY MOUTH TWICE A DAY FOR 2 WEEKS 06/25/2020 11/02/2022 DULoxetine (CYMBALTA) 20 mg delayed release capsule Take 20 mg by mouth 2 times daily. 11/02/2022 DULoxetine (CYMBALTA) 30 mg delayed release capsule Take 30 mg by mouth daily. 11/02/2022 famotidine (PEPCID) 40 mg tablet Take 40 mg by mouth at bedtime. 11/02/2022 HYDROcodone-acetaminophen (NORCO) 5-325 mg tablet Take 1-2 Tabs by mouth every 6 hours as needed for Pain. 11/02/2022 lamoTRIgine (LAMICTAL) 200 mg tablet Take 100 mg by mouth 2 times daily. 01/09/2021 NARCAN 4 mg/actuation nasal spray SPRAY 0.1ML INTO ONE NOSTRIL REPEAT WITH SECOND DEVICE INTO THE OTHER NOSTRIL AFTER 2 3 MINUTES IF NO OR MINIMAL RESPONSE 06/14/2020 11/02/2022 nicotine (NICODERM CQ) 21 mg/24 hr patch APPLY ONE PATCH TO THE SKIN EVERY DAY 06/25/2020 11/02/2022 Omeprazole 20 mg tablet,delayed release (DR/EC) [...] FOR 5 DAYS 04/11/2020 04/27/2022 pregabalin (LYRICA) 200 mg capsule Take 1 Cap by mouth 3 times daily. 02/29/2020 04/27/2022 prochlorperazine (COMPAZINE) 10 mg tablet TAKE ONE TABLET BY MOUTH EVERY 6 HOURS NEEDED FOR NAUSEA VOMITING 05/29/2020 04/27/2022 sildenafil citrate (VIAGRA) 100 mg tablet [...] Name Priority Date/Time Associated Diagnosis Comments CT OUTSIDE IMAGES CHEST Routine 09/11/2020 8:43 EDT documented in this encounter Results * CT OUTSIDE IMAGES CHEST (09/11/2020 8:43 EDT) Narrative 09/11/2020 8:43 EDT This is a non-reportable exam. Provider Unknown MD KLINE OTHER IMAGING OR DERABLES documented in this encounter Visit Diagnoses Not on filedocumented in this encounter Care Teams Field Captain Relationship Specialty Start Date End Date Lynn Solis, JOB PLACEMENT OFFICER [address] [place] [address] PCP - General 05/28/14 09/15/21 documented as of this encounter
--- OUTSIDE RECORDS SUMMARY | 2024-02-03 13:15 | XMS_ITS | Encounter Summary ---
Author Organization [facility] Address [address] [place] [address] Care Team Providers Care Heat Treat Operator Name Role Phone Lian Parnell EDGE KITTER Primary Care Provider [phone] Encounter Details Date Type Department Care Team (Late st Contact Info) Description 09/16/2021 Documentation Visit [facility] Radiation Oncology - [facility] [address] [place] [address] Krystal Sanchez, RN Social History Tobacco Use [...] Progress Notes * Krystal Sanchez, RN - 09/16/2021 1513 EDT Fran in for follow up with Dr. Brady. He is concerned about a lump he feels in his right axillaat this time. documented in this encounter Plan of Treatment Not on file documented as of this encounter Visit Diagnoses Not on filedocumented in this encounter Care Teams Heat Treat Operator Relationship Specialty Start Date End Date Lian Parnell FNP [address] [place] [phone] PCP - General Family Medicine - Primary Care 09/16/21 CHARLENE URIOSTEGUI Pulmonary Disease 01/29/21 documented as of this encounter
--- OUTSIDE RECORDS SUMMARY | 2024-02-03 13:15 | XMS_ITS | Encounter Summary ---
Author Organization [facility] Address [address] [place] [address] Care Team Providers Care Clip Coater Name Role Phone Lynn Solis CLOTHING DESIGNER Primary Care Provider Lian Parnell DIGITAL PHOTOGRAPHER Primary Care Provider [phone] Encounter Details Date Type Department Care Team (Late st Contact Info) Description 09/02/2021 Lab Requisition [facility] Pathology & Laboratory Medicine - [address] [address] Outr Resulting Lab, Provider Social History Tobacco [...] Name Priority Date/Time Associated Diagnosis Comments HEPATITIS A ANTIBODY IGM Today 09/02/2021 15:40 EDT HEPATITIS A TOTAL ANTIBODY W REFLEX Routine 09/02/2021 15:40 EDT documented in this encounter Results * HEPATITIS A ANTIBODY IGM (09/02/2021 15:40 EDT) Hepatitis A Antibody, IgM Negative Negative 09/03/2021 13:38 EDT [facility] Blood VENOUS BLOOD / Unknown 09/02/2021 15:40 EDT 09/02/2021 21:42 EDT Narrative [facility] - 09/03/2021 13:38 EDT The results of this assay can be falsely lowered due to the consumption of Biotin. Provider Outr Resulting Lab CHEMISTRY & BLOOD GAS ORDERABLES Performing Organization Address [facility] Co de Phone Number [facility] [address] [place] [address] * (ABNORMAL) HEPATITIS A TOTAL ANTIBODY W REFLEX (09/02/2021 15:40 EDT) Hepatitis A Antibody, Total Positive(A ) Negative 09/03/2021 12:27 EDT [facility] Blood VENOUS BLOOD / Unknown 09/02/2021 15:40 EDT 09/02/2021 21:42 EDT Narrative [facility] - 09/03/2021 12:27 EDT The result of this assay can be falsely elevated (Positive) due to the consumption of Biotin. Provider Outr Resulting Lab CHEMISTRY & BLOOD GAS ORDERABLES Performing Organization Address City/[facility]/ZIP Co de Phone Number [facility] [address] [place] [address] documented in this encounter Visit Diagnoses Not on filedocumented in this encounter Care Teams Clip Coater Relationship Specialty Start Date End Date Lynn Solis NP [address] [place] [address] PCP - General 05/28/14 09/15/21 Lian Parnell, [facility] [address] [place] [phone] PCP - General Family Medicine - Primary Care 09/16/21 CHARLENE URIOSTEGUI Pulmonary Disease 01/29/21 documented as of this encounter
--- OUTSIDE RECORDS SUMMARY | 2024-02-03 13:15 | XMS_ITS | Encounter Summary ---
Author Organization [facility] Address [address] [place] [address] Care Team Providers Care Doctor Of Naprapathy Name Role Phone Lynn Solis TECHNOLOGY SUPPORT ANALYST Primary Care Provider [phone] Lian Parnell PATENT LAWYER Primary Care Provider [phone] Encounter Details Date Type Department Care Team (Late st Contact Info) Description 07/11/2020 Lab Requisition [facility] Pathology & [place] [address] Outr Resulting Lab, Provider Social History Tobacco [...] Procedure Name Priority Date/Time Associated Diagnosis Comments IGG Routine 07/10/2020 16:17 EST documented in this encounter Results * IGG (07/10/2020 16:17 EST) IgG 647 610-1,616 mg/dL 07/12/2020 10:[address] [facility] Blood VENOUS BLOOD / Unknown 07/10/2020 16:17 EST 07/11/2020 22:37 EST Provider Outr Resulting Lab CHEMISTRY & BLOOD GAS ORDERABLES [facility] [address] [place] [address] documented in this encounter Visit Diagnoses Not on filedocumented in this encounter Care Teams Doctor Of Naprapathy Relationship Specialty Start Date End Date Lynn Solis, TECHNOLOGY SUPPORT ANALYST [address] [place] [address] PCP - General 05/28/14 09/15/21 Lian Parnell FNP [address] [place] [phone] PCP - General Family Medicine - Primary Care 09/16/21 CHARLENE URIOSTEGUI Pulmonary Disease 01/29/21 documented as of this encounter
--- OUTSIDE RECORDS SUMMARY | 2024-02-03 13:15 | XMS_ITS | Encounter Summary ---
Author Organization [facility] Address [address] [place] [address] Care Team Providers Care District Traffic Chief Name Role Phone Lynn Solis FREIGHT TRUCKER Primary Care Provider [phone] Lian Parnell TURNER OFF Primary Care Provider [phone] Encounter Details Date Type Department Care Team (Late st Contact Info) Description 07/11/2020 Lab Requisition [facility] Pathology & [place] [address] Outr Resulting Lab, Provider Social History Tobacco [...] Procedure Name Priority Date/Time Associated Diagnosis Comments IGA Routine 07/10/2020 16:17 EST documented in this encounter Results * IGA (07/10/2020 16:17 EST) IgA 218 85 - 499 mg/dL 07/12/2020 10:02 EST [facility] Blood VENOUS BLOOD / Unknown 07/10/2020 16:17 EST 07/11/2020 22:37 EST Provider Outr Resulting Lab CHEMISTRY & BLOOD GAS ORDERABLES [facility] [address] [place] [address] documented in this encounter Visit Diagnoses Not on filedocumented in this encounter Care Teams District Traffic Chief Relationship Specialty Start Date End Date Lynn Solis, FREIGHT TRUCKER [address] [place] [address] PCP - General 05/28/14 09/15/21 Lian Parnell, TURNER OFF [address] [place] [phone] PCP - General Family Medicine - Primary Care 09/16/21 CHARLENE URIOSTEGUI Pulmonary Disease 01/29/21 documented as of this encounter
--- OUTSIDE RECORDS SUMMARY | 2024-02-03 13:15 | XMS_ITS | Encounter Summary ---
Author Organization [facility] Address [address] [place] [address] Care Team Providers Care Sandstone Splitter Name Role Phone Lynn Solis SECONDARY SCHOOL PRINCIPAL Primary Care Provider [phone] Lian Parnell CLOUD AUTOMATION TESTER Primary Care Provider [phone] Encounter Details Date Type Department Care Team (Late st Contact Info) Description 01/02/2021 Lab Requisition [facility] Pathology & [place] [address] Outr Resulting Lab, Provider Social History Tobacco [...] Procedure Name Priority Date/Time Associated Diagnosis Comments PSA TOTAL, DIAGNOSTIC Routine 01/01/2021 15:33 EDT documented in this encounter Results * PSA TOTAL, DIAGNOSTIC (01/01/2021 15:33 EDT) PSA 1.5 0.0 - 3.5 ng/mL 01/02/2021 18:30 EDT [facility] Blood VENOUS BLOOD / Unknown 01/01/2021 15:33 EDT 01/02/2021 16:26 EDT Narrative [facility] - 01/02/2021 18:30 EDT NOTE: Serum PSA concentration should not be interpreted as absolute evidence for the presence or absence of malignant disease. Assayed on VideoClixaur XPT using chemiluminescent technology.??Values obtained by using different assay methods cannot be used interchangeably. Provider Outr Resulting Lab CHEMISTRY & BLOOD GAS ORDERABLES Performing Organization Address City/State/[facility] Co de Phone Number [facility] [address] [place] [address] documented in this encounter Visit Diagnoses Not on filedocumented in this encounter Care Teams Sandstone Splitter Relationship Specialty Start Date End Date Lynn Solis NP [address] [place] [address] PCP - General 05/28/14 09/15/21 Lian Parnell FNP [address] [place] [phone] PCP - General Family Medicine - Primary Care 09/16/21 CHARLENE URIOSTEGUI Pulmonary Disease 01/29/21 documented as of this encounter
--- OUTSIDE RECORDS SUMMARY | 2024-02-03 13:15 | XMS_ITS | Encounter Summary ---
Author Organization [facility] Address [address] [place] [address] Care Team Providers Care Agricultural Equipment Design Engineer Name Role Phone Lynn Solis NP Primary Care Provider [phone] Reason for Visit * Reason Comments Follow-up Encounter Details Date Type Department Care Team (Late st Contact Info) Description 10/09/2020 13:00 EDT Office Visit [facility] Adult Hematology & Oncology [address] [place] [phone] Jaxon Stephens MD [address] [place] [address], [facility] [address] [place] [address] Lymphocyte-rich Hodgkin lymphoma of lymph [...] Sign Reading Time Taken Comments Blood Pressure 127/73 10/09/2020 1449 EDT Pulse 95 10/09/2020 1449 EDT Temperature 36.9 ??C (98.4 ??F) 10/09/2020 1449 EDT Respiratory Rate 18 10/09/2020 1449 EDT Oxygen Saturation 93% 10/09/2020 1449 EDT Inhaled Oxygen Concentration - - Weight 55 kg (121 lb 4.1 oz) 10/09/2020 1449 EDT Height - - Body Mass Index 20.81 03/27/2020 1518 EDT documented in this encounter [...] as of this encounter Progress Notes * Melita Hammer MA - 10/09/2020 1300 EDT Patients meds list reviewed and updated per Amairani 10/10/20 11:58 * Jaxon Stephens MD - 10/09/2020 1230 EDT Hem/Onc. Follow up Note Fran Justin Sr. :1965 Age:55 y.o. Gender:male Date of Service:10/09/2020 History of present illness: 1: Classic Hodgkin [...] restaging PET scan scheduled for 07/16/2020 2: Right middle lobe pneumonia with empyema -09/11/2020 admitted via [place] [facility] [place] of right middle lobe pneumonia and empyema. Pigtail catheter inserted TPA therapy initiated x4 cycles, additional pigtail was placed into more lateral collection. Pleural fluid grew strep milligray sensitive to penicillin treated with Augmentin for6 weeks. Pigtail catheter was removed prior to discharge -Needs follow-up CT chest mid November, referral back to Dr. Marko Jordan thoracic surgery at [facility]. 2: History of tobacco abuse. -12/29/2018 CT chest [facility]. No malignancy. Left axilla showing a 1.3 cm lymph node shortness axis. - 11/22/2019 2 pack/day for 46 years for total of 42 pack to pack year history. Followed by Dr Donta hernandez in [place]. -Scheduled for a yearly screening CT chest [...] admitted to [facility] for IV antibiotics, after few [...] hrs: BP Temp Pulse Resp SpO2 Weight 10/09/20 1449 127/73 36.9 ??C (98.4 ??F) 95 18 93 % 55 kg (121 lb 4.1 oz) Wt Readings from Last 3 Encounters: 10/09/20 55 kg (121 lb 4.1 oz) 07/10/20 59 kg (130 lb 1.1 oz) 06/12/20 58 kg (127 lb 13.9 oz) Ht Readings from Last 1 Encounters: 03/27/20 162.6 cm (64) Estimated body surface area is 1.58 meters squared as calculated from the following: Height as of 03/27/20: 162.6 cm (64). Weight as of this encounter: 55 kg (121 lb 4.1 oz). Physical exam: ECOG Performance Status: 2 [...] ??? Anxiety ??? Depression ??? Emphysema lung ([facility]) ??? Emphysema of lung ([facility]) ??? ETOH abuse ??? GERD (gastroesophageal reflux disease) ??? 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 Seizures ([facility]) Allergies: Allergies Allergen Reactions ??? Wellbutrin [Bupropion Hcl] Seizures per patient Medications: Current Outpatient Medications Medication Sig Dispense Refill Last Dose ??? albuterol (PROVENTIL HFA, VENTOLIN HFA) 90 mcg/Actuation inhaler Inhale 2 Puffs as directed every 4 hours. ??? cephalexin (KEFLEX) 500 mg capsule TAKE ONE CAPSULE BY MOUTH FOUR TIMES A DAY FOR 2 WEEKS ??? cetirizine (ZYRTEC) 10 mg tablet TAKE ONE TABLET BY MOUTH AT BEDTIME NIGHTLY ??? doxycycline (ADOXA) 100 mg tablet TAKE [...] THREE TIMES A DAY ??? famotidine (PEPCID) 40 mg tablet Take [...] PATCH TO THE SKIN EVERY DAY ??? Omeprazole 20 mg tablet,delayed release (DR/EC) Take 20 mg by mouth daily. ??? ondansetron (ZOFRAN-ODT) [address] ONE TABLET UNDER THE TONGUE EVERY 8 HOURS NEEDED FOR NASUEA VOMITING ??? oxyCODONE (ROXICODONE) 5 mg immediate release tablet Take 1-2 Tabs by mouth every 3 hours as needed for Pain. ??? predniSONE (DELTASONE) 50 mg tablet TAKE TWO TABLETS BY MOUTH EVERY DAY FOR 5 DAYS ??? pregabalin (LYRICA) 200 mg capsule Take [...] orders placed or performed in visit on 07/10/20 IGG Result Value Ref Range IgG 647 610-1,616 mg/dL Imaging: Assessment: 1. Hodgkin lymphoma. He received 1 dose of CHOP: Shortly thereafter had psychiatric decompensation requiring inpatient management, after discharge was complaining of progressive carpal tunnel pain inthe right wrist declined further therapy until that surgery, performed late May 2020. Few days later the wound got infected was admitted to [facility] for IV antibiotics he left AMA before finishing a course. Due to delays in multiple infectious complications and the risk of immunosuppression from further chemotherapy and psychiatric decompensation due to high-dose steroids and chemotherapy recommended radiation to the left axilla. Dr. Brady completed with complete resolution of the adenopathy. July was admitted to [facility] later transferred [place] [facility] for [place]/empyema. RequiringPleurx catheter x2. Discharge about a month ago completed antibiotics course. Comes in for follow-up, unfortunately smoking 2 packs/day. On physical exam no evidence of recurrent lymphoma, had a CT of the chest 3 days ago on a ER visit to rule out pulmonary emboli. There is no recurrent effusion, there is minor lymphadenopathy in the axilla and mediastinum measuring 1.5 to 1.6 cm about 1 or 2 nodes others measuring subcentimeter to 1.1 cm. Assessment: No clinical evidence of recurrent lymphoma, performance status still poor due to recentpneumonia/empyema malnutrition and tobacco abuse. Plan: -Follow-up after restaging CT chest follow-up empyema in late November with physical exam in the officeafter that. 2: Tobacco abuse smoking 2 packs/day once again, highly encouraged that he at least reduce the amount of cigarettes. 3: Malnutrition due to poor dietary habits encourage more nutritious foods 3 times a day. CC; Herman [place]on [place]. Code 85514: This note was transcribed using [employer] voice recognition software please excuse any mistranslations. 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 Medication Sig Dispensed Refills Start Date End Date polyethylene glycol (GLYCOLAX) 17 gram/dose powder Take 17 g by mouth daily. 09/18/2020 ASMANEX TWISTHALER 220 mcg/ actuation (30) inhaler - 30 doses INHALE ONE PUFF BY MOUTH INTO THE LUNGS NIGHTLY 09/18/2020 DOK 100 mg capsule TAKE ONE CAPSULE BY MOUTH TWICE A DAY FOR 10 DAYS 09/17/2020 amoxicillin-clavulanate (AUGMENTIN) 875-125 mg per tablet TAKE ONE TABLET BY MOUTH TWICE A DAY FOR 28 DAYS 09/17/2020 acetaminophen (TYLENOL) 500 mg tablet Take 2 Tablets by mouth every 6 hours as needed. 09/17/2020 famotidine (PEPCID) 20 mg tablet Take 20 mg by mouth at bedtime. 11/02/2022 pregabalin (LYRICA) 100 mg capsule Take by mouth 3 times daily. 09/17/2020 11/02/2022 senna (SENOKOT) 8.6 mg tablet Take 17.2 mg by mouth. 09/17/202004/27 nicotine polacrilex (NICORETTE) 4 mg gum CHEW 1 PIECE BY MOUTH EVERY 2 HOURS NEEDED FOR SMOKING CESSATION NOTHING BUT WATER 15 MINUTES BEFORE OR DURING USE 10/01/2020 11/02/2022 nicotine polacrilex (NICORETTE) 2 mg gum CHEW 1 PIECE OF EVERY 2 HOURS NEEDED 10/04/2020 11/02/2022 melatonin 3 mg tablet Take 6 mg by mouth. 09/17/2020 11/02/2022 HYDROmorphone (DILAUDID) 2 mg tablet TAKE ONE TABLET BY MOUTH EVERY 4 HOURS NEEDED FOR PAIN NOT CONTROLLED BY TYLENOL AND IBUPROFEN 09/17/2020 11/02/2022 cyclobenzaprine (FLEXERIL) 10 mg tablet TAKE ONE TABLET BY MOUTH THREE TIMES A DAY NEEDED FOR MUSCLE SPASMS 09/17/2020 11/02/2022 added in this encounter Care Teams Agricultural Equipment Design Engineer Relationship Specialty Start Date End Date Lynn Solis PAVING MACHINE OPERATOR [address] [place] [address] PCP - General 05/28/14 09/15/21 documented as of this encounter
--- OUTSIDE RECORDS SUMMARY | 2024-02-03 13:15 | XMS_ITS | Encounter Summary ---
Author Organization [facility] Address [address] [place] [address] Care Team Providers Care Umbrella Finisher Name Role Phone Lynn Solis LICENSED MARINE ENGINEER Primary Care Provider [phone] Lian Parnell BALLING MACHINE OPERATOR Primary Care Provider [phone] Encounter Details Date Type Department Care Team (Late st Contact Info) Description 01/01/2021 Results Only Imaging [facility] Radiology Results [address] [place], [place] [phone] Lynn Solis, LICENSED MARINE ENGINEER [address] [place], [place] [phone] Social History Tobacco Use Types Packs/Day Years [...] Diagnosis Comments PET CT EYE TO THIGH 01/01/2021 1 5:12 EDT documented in this encounter Results * PET CT EYE TO THIGH (01/01/2021 15:12 EDT) Anatomical Region Laterality Modality Body Positron Emissio n Tomography (PET) 01/01/2021 15:0 8 EDT Narrative 01/01/2021 15:12 EDT ? EXAM: PET/CT SCAN/PET/CT SKULL BASE MID T EX. D/ (1521) ? CLINICAL INFORMATION: ? C81.90 HODGKINS LYMPHOMA ? INDICATION: C81.90 HODGKIN LYMPHOMA. ? COMPARISON: Head CT 07/23/2020. ? TECHNIQUE: PET/CT was performed from the base of the skull to the mid ? thighs with a dose of 16.1 mCi of F-18 FDG. Low-dose CT scan was ? obtained for localization purposes. ? FINDINGS: ? Neck/Chest: No abnormal increased metabolic activity identified ? within the neck. The mildly enlarged metabolically active lymph nodes ? present within the left axilla on the previous exam are no longer ? present. There are new multifocal patchy and nodular lung opacities ? bilaterally which demonstrate varying degrees of increased metabolic ? activity. The largest nodular opacity within the left upper lobe has ? an SUV max of 3.8. Differential diagnosis includes neoplastic, ? infectious and inflammatory processes. Close clinical correlation is ? needed. Biopsy versus short-term follow-up CT scan is recommended. No ? abnormal metabolic activity is identified within small mediastinal or ? hilar lymph nodes. ? Abdomen/Pelvis: No abnormal increased metabolic activity is ? identified within the abdomen or pelvis. ? Bones: No abnormal increased metabolic activity is identified within ? the skeleton. ? Localizing CT: Diffuse paraseptal and centrilobular pulmonary ? emphysema. No acute abnormality identified within the abdomen or ? pelvis. ? IMPRESSION: ? 1. Interval resolution of hypermetabolic left axillary lymph nodes ? compared to the previous exam. ? 2. New bilateral lung multifocal patchy and nodular opacities ? demonstrating varying degrees of increased metabolic activity. The ? largest nodular opacity within the left upper lobe has an SUV max of ? 3.8. Differential diagnosis includes neoplastic, infectious and ? inflammatory processes. Close clinical correlation is needed. ? Consider biopsy versus short-term follow-up CT scan as clinically ? warranted. ? REPORT SIGNED IN OTHER VENDOR SYSTEM 01/01/2021 ?Reported By: Derek Shukla MD ? CC: ? Transcribed Date/Time: 01/01/2021 (1512) ? Medical And Scientific Illustrator: ? Printed Date/Time: 01/01/2021 (1512) ? PAGE 1 ? Signed Report ? Procedure Note Derek Shukla MD - 01/01/2021 EXAM: PET/CT SCAN/PET/CT SKULL BASE MID T EX. D/ (1521) CLINICAL INFORMATION: C81.90 HODGKINS LYMPHOMA INDICATION: C81.90 HODGKIN LYMPHOMA. COMPARISON: Head CT 07/23/2020. TECHNIQUE: PET/CT was performed from the base of the skull to themid thighs with a dose of 16.1 mCi of F-18 FDG. Low-dose CT scan was obtained for localization purposes. FINDINGS: Neck/Chest: No abnormal increased metabolic activity identified within the neck. The mildly enlarged metabolically active lymphnodes present within the left axilla on the previous exam are no longer present. There are new multifocal patchy and nodular lung opacities bilaterally which demonstrate varying degrees of increasedmetabolic activity. The largest nodular opacity within the left upper lobehas an SUV max of 3.8. Differential diagnosis includes neoplastic, infectious and inflammatory processes. Close clinical correlationis needed. Biopsy versus short-term follow-up CT scan is recommended.No abnormal metabolic activity is identified within small mediastinalor hilar lymph nodes. Abdomen/Pelvis: No abnormal increased metabolic activity is identified within the abdomen or pelvis. Bones: No abnormal increased metabolic activity is identifiedwithin the skeleton. Localizing CT: Diffuse paraseptal and centrilobular pulmonary emphysema. No acute abnormality identified within the abdomen or pelvis. IMPRESSION: 1. Interval resolution of hypermetabolic left axillary lymph nodes compared to the previous exam. 2. New bilateral lung multifocal patchy and nodular opacities demonstrating varying degrees of increased metabolic activity. The largest nodular opacity within the left upper lobe has an SUV maxof 3.8. Differential diagnosis includes neoplastic, infectious and inflammatory processes. Close clinical correlation is needed. Consider biopsy versus short-term follow-up CT scan as clinically warranted. REPORT SIGNED IN OTHER VENDOR SYSTEM 01/01/2021 Reported By: Derek Shukla MD CC: Transcribed Date/Time: 01/01/2021 (974) Medical And Scientific Illustrator: Printed Date/Time: 01/01/2021 (151) PAGE 1 Signed Report Lynn Solis NP IMG NM ORDERABLES documented in this encounter Visit Diagnoses Not on filedocumented in this encounter Care Teams Umbrella Finisher Relationship Specialty Start Date End Date Lynn Solis NP [address] [place] [address] PCP - General 05/28/14 09/15/21 Lian Parnell FNP [address] [place] [address] PCP - General Family Medicine - Primary Care 09/16/21 CHARLENE URIOSTEGUI Pulmonary Disease 01/29/21 documented as of this encounter
--- OUTSIDE RECORDS SUMMARY | 2024-02-03 13:15 | XMS_ITS | Encounter Summary ---
Author Organization [facility] Address [address] [place] [address] Care Team Providers Care Kick Boxer Name Role Phone Lynn Solis HEAT PLANT SPECIALIST Primary Care Provider [phone] Lian Parnell PLANISHING PRESS OPERATOR Primary Care Provider [phone] Encounter Details Date Type Department Care Team (Late st Contact Info) Description 07/24/2020 Results Only [facility] Radiology Results [address] [place] [id number] Jaxon Stephens MD [address] [facility] [address] [place] [id number] Social History Tobacco Use Types Packs/Day Years [...] Diagnosis Comments PET CT EYE TO THIGH 07/24/2020 9:17 EST documented in this encounter Results * PET CT EYE TO THIGH (07/24/2020 9:17 EST) Anatomical Region Laterality Modality Body Positron Emissio n Tomography (PET) 07/24/2020 9:14 EST Narrative 07/24/2020 9:17 EST ? EXAM: PET/CT SCAN/PET/CT SKULL BASE MID T EX. D/ (0727) ? CLINICAL INFORMATION: ? 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 INDICATION: C81.44 LYMPHOCYTE-RICH HODGKIN LYMPHOMA OF LYMPH, NODES ? OF AXILLA, RESTAGING. ? COMPARISON: Head CT 03/26/2020. ? TECHNIQUE: PET/CT was performed from the base of the skull to the mid ? thighs with a dose of 16.829 mCi of F-18 FDG. Low-dose CT scan was ? obtained for localization purposes. ? FINDINGS: ? Neck/Chest: The 5 cm low-density mass and inflammatory changes seen ? within the left axilla on the previous exam are no longer present. ? There are small bilateral axillary lymph nodes. The largest on the ? left has a short axis diameter of 6.8 mm. Mild increased metabolic ? activity is present within 3 of the left axillary lymph nodes with an ? SUV max of 1.9 (background liver SUV max is approximately 1.6). No ? other abnormal increased metabolic activity is identified within the ? chest. No abnormal increased metabolic activity is present within the ? neck. ? Abdomen/Pelvis: No abnormal increased metabolic activity is ? identified within the abdomen or pelvis. ? Bones: No abnormal increased metabolic activity is identified within ? the skeleton. ? Localizing CT: Left chest wall port with catheter tip in the lower ? SVC. Diffuse paraseptal and centrilobular pulmonary emphysema, most ? severe in the upper lung zones. No acute abdominopelvic process. ? IMPRESSION: Interval improvement in the appearance of the left axilla ? with resolution of large left axillary mass and associated ? inflammatory change. There are residual small left axillary lymph ? nodes demonstrating mild increased metabolic activity. ? REPORT SIGNED IN OTHER VENDOR SYSTEM 07/24/2020 ?Reported By: Derek Shukla MD ? CC: ? Transcribed Date/Time: 07/24/2020 (0917) ? Founder And Chief Technical Officer: ? Printed Date/Time: 07/24/2020 (0918) ? PAGE 1 ? Signed Report ? Procedure Note Derek Shukla MD - 07/24/2020 EXAM: PET/CT SCAN/PET/CT SKULL BASE MID T EX. 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 COMPARISON: Head CT 03/26/2020. TECHNIQUE: PET/CT was performed from the base of the skull to themid thighs with a dose of 16.829 mCi of F-18 FDG. Low-dose CT scan was obtained for localization purposes. FINDINGS: Neck/Chest: The 5 cm low-density mass and inflammatory changes seen within the left axilla on the previous exam are no longer present. There are small bilateral axillary lymph nodes. The largest on the left has a short axis diameter of 6.8 mm. Mild increased metabolic activity is present within 3 of the left axillary lymph nodes withan SUV max of 1.9 (background liver SUV max is approximately 1.6). No other abnormal increased metabolic activity is identified withinthe chest. No abnormal increased metabolic activity is present withinthe neck. Abdomen/Pelvis: No abnormal increased metabolic activity is identified within the abdomen or pelvis. Bones: No abnormal increased metabolic activity is identifiedwithin the skeleton. Localizing CT: Left chest wall port with catheter tip in the lower SVC. Diffuse paraseptal and centrilobular pulmonary emphysema, most severe in the upper lung zones. No acute abdominopelvic process. IMPRESSION: Interval improvement in the appearance of the leftaxilla with resolution of large left axillary mass and associated inflammatory change. There are residual small left axillary lymph nodes demonstrating mild increased metabolic activity. REPORT SIGNED IN OTHER VENDOR SYSTEM 07/24/2020 Reported By: Derek Shukla MD CC: Transcribed Date/Time: 07/24/2020 (916) Founder And Chief Technical Officer: Printed Date/Time: 07/24/2020 (917) PAGE 1 Signed Report Jaxon Stephens MD IMG NM ORDERABLES documented in this encounter Visit Diagnoses Not on filedocumented in this encounter Care Teams Kick Boxer Relationship Specialty Start Date End Date Lynn Solis NP [address] [place] [address] PCP - General 05/28/14 09/15/21 Lian Parnell FNP [address] [place] [phone] PCP - General Family Medicine - Primary Care 09/16/21 CHARLENE URIOSTEGUI Pulmonary Disease 01/29/21 documented as of this encounter
--- OUTSIDE RECORDS SUMMARY | 2024-02-03 13:15 | XMS_ITS | Encounter Summary ---
Author Organization [facility] Address [address] [place] [address] Care Team Providers Care Historical Interpreter Name Role Phone Lynn Solis ADVERTISING REP Primary Care Provider [phone] Lian Parnell CUTTER DOWN Primary Care Provider [phone] Encounter Details Date Type Department Care Team (Late st Contact Info) Description 09/02/2021 Lab Requisition [facility] Pathology & Laboratory Medicine - [address] [address] Outr Resulting Lab, Provider Social History Tobacco [...] Priority Date/Time Associated Diagnosis Comments HEPATITIS B CORE ANTIBODY (TOTAL) Routine 09/02/2021 15:40 EDT documented in this encounter Results * HEPATITIS B CORE ANTIBODY (TOTAL) (09/02/2021 15:40 EDT) Hepatitis B Core Ab, Total Negative Negative 09/03/2021 11:22 EDT [facility] Blood VENOUS BLOOD / Unknown 09/02/2021 15:40 EDT 09/02/2021 21:42 EDT Provider Outr Resulting Lab CHEMISTRY & BLOOD GAS ORDERABLES [facility] [address] [place] [address] documented in this encounter Visit Diagnoses Not on filedocumented in this encounter Care Teams Historical Interpreter Relationship Specialty Start Date End Date Lynn Solis NP [address] [place] [address] PCP - General 05/28/14 09/15/21 Lian Parnell FNP [address] [place] [phone] PCP - General Family Medicine - Primary Care 09/16/21 CHARLENE URIOSTEGUI Pulmonary Disease 01/29/21 documented as of this encounter
--- OUTSIDE RECORDS SUMMARY | 2024-02-03 13:15 | XMS_ITS | Encounter Summary ---
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) (HCC-CMS) Social History Tobacco Use Types Packs/Day [...] Procedure Name Priority Date/Time Associated Diagnosis Comments CREATININE Routine 09/16/2021 15:58 EDT 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) (HCC-CMS) documented in this encounter Results * CREATININE (09/16/2021 15:58 EDT) Creatinine 0.71 0.66 - 1.25 mg/dL 09/16/2021 17:34 EDT [facility] eGFR 106 >60 mL/min/1.73 m2 09/16/2021 17:34 EDT [facility] Blood VENOUS BLOOD / Unknown Venipuncture / Unknown 09/16/2021 15:58 EDT 09/16/2021 17:07 EDT Ed Brady MD CHEMISTRY & BLOOD GAS ORDERABLES Performing Organization Address City/State/[facility] Co de Phone Number [facility] [address] [place] [address] documented in this encounter Visit Diagnoses Diagnosis 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
--- OUTSIDE RECORDS SUMMARY | 2024-02-03 13:15 | XMS_ITS | Encounter Summary ---
Author Organization [facility] Address [address] [place] [address] Care Team Providers Care Crane Operator Name Role Phone Lynn Solis CHUCKER Primary Care Provider [phone] Lian Parnell SALES ENGINEERING MANAGER Primary Care Provider [phone] Encounter Details Date Type Department Care Team (Late st Contact Info) Description 09/02/2021 Lab Requisition [facility] Pathology & Laboratory Medicine - [address] [address] Outr Resulting Lab, Provider Social History Tobacco [...] Procedure Name Priority Date/Time Associated Diagnosis Comments GGT Routine 09/02/2021 15:40 EDT documented in this encounter Results * GGT (09/02/2021 15:40 EDT) GGT 16 15 - 73 U/L 09/02/2021 22:06 EDT [facility] Blood VENOUS BLOOD / Unknown 09/02/2021 15:40 EDT 09/02/2021 21:42 EDT Provider Outr Resulting Lab CHEMISTRY & BLOOD GAS ORDERABLES [facility] [address] [place] [address] documented in this encounter Visit Diagnoses Not on filedocumented in this encounter Care Teams Crane Operator Relationship Specialty Start Date End Date Lynn Solis, CHUCKER [address] [place] [address] PCP - General 05/28/14 09/15/21 Lian Parnell FNP [address] [place] [phone] PCP - General Family Medicine - Primary Care 09/16/21 CHARLENE URIOSTEGUI Pulmonary Disease 01/29/21 documented as of this encounter
--- OUTSIDE RECORDS SUMMARY | 2024-02-03 13:15 | XMS_ITS | Encounter Summary ---
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) Procedures CT ABDOMEN PELVIS W CONTRAST CT ABDOMEN W CONTRAST Ed Brady MD [address] [place] [phone] [facility] Referral ID Status Reason Start Date Expiration Date Visits Requested Visits Authorized [id number] Authorization Not Required 09/16/2021 1 1 * Radiology Services (Routine/Next Available) - Authorization Not Required Specialty Diagnoses / Procedures Referred By Mavis rhodes Referred To Contact Diagnoses 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) (HCC-CMS) (Primary Dx) Social History Tobacco Use Types Packs/Day Years Used Date Smoking Tobacco: Every Day Cigarettes 1 45 Smokeless Tobacco: Never Tobacco Cessation:Ready to Q uit: Yes; Counseling Given: Yes Alcohol Use Standard Drinks/Week [...] Sign Reading Time Taken Comments Blood Pressure - - Pulse 82 09/16/2021 1501 EDT Temperature - - Respiratory Rate - - Oxygen Saturation - - Inhaled Oxygen Concentration - - Weight 58.4 kg (128 lb 12.8 oz) 09/16/2021 1501 EDT Height - - Body Mass Index 22.11 03/27/2020 1518 EDT documented in this encounter [...] Progress Notes * Ed Brady MD - 09/16/2021 1500 EDT Images from the original note were not included. Division of Radiation Oncology- FOLLOW-UP NOTE Date of Service: 09/16/2021 Diagnosis/Stage: Cancer Staging No matching staging information was found for the patient. 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 He only received 1 cycle of chemotherapy which had to be aborted because of ongoing medical problems. Radiation was delivered to the left axilla with 30 Gy in 10 treatments 1 year ago. PET 4 months after radiation showed no evidence pneumonia type changes without evidence of lymphoma. Is attempting to quit smoking. He was concerned about a contralateral, right axillary lymph node and exam today reveals a small benign feeling node measuring approximately 1 cm. Recommendations: CT chest abdomen as part of restaging for Hodgkin's disease has been requested with creatinine today. I will see him to review the findings and the days after the scan History of Presenting Illness: Fran Justin, who goes by Darren, has Hodgkin's lymphoma of left axilla with 1 cycle of chemotherapydelivered with no plan for additional chemotherapy. Medical history includes anxiety, depression, COPD, history of alcohol abuse and seizures. The records are reviewed from [facility], [facility] and Dr. Stephens. Classic Hodgkin lymphoma, lymphocyte rich subtype. Stage IB ??? 12/20/17 CT handy General the patient is a [facility] in follow up left lung noduleand left axilla node. A 5 mm RLL nodule was stable. A left axillary node was again noted and less prominent compared to the prior CT. ??? 12/29/[address] chest showed a mildly enlarged left axillary node with a short axis diameterof 1.3 cm (2.6 cm wide by my review). Moderate central lobular and paraseptal emphysematous changeswere seen with no nodules. ??? 10/31/2019 [facility] [...] for an excisional biopsy. ??? 03/19/2020 Nav [facility]??? excisional biopsy of left axillary node pathology consistent with classic Hodgkin lymphoma, lymphocyte rich. Grossly 5 x 3.5 x 1.5cm specimen. ??? [...] oxygen dependent, still smoking. Recommend R-CHOP x 6. ??? 04/15/2020 Cycle # 1. Rash at 1 week. Vein pain, Not eating, felt terrible. Port access recommended. ??? 04/2020 declined further therapy increased psychiatric issues and referred to Psych. ??? 05/2020 carpal tunnel worsening, declined therapy until hand surgery, scheduled for 06/14/2020 ??? 06/22/2020 Dr. Blanca Naik performed at [facility] right carpal tunnel surgery. A few [...] the wound got infected was admitted to [facility] for IV antibiotics he left AMA [...] many months. He is currently without left axillarydiscomfort or symptoms. He is still smoking up to 2 packs/day. ??? 09/06/20 completed radiation to the left axilla to 3000 cGy in 10 treatments. ??? 12/31/2020 PET scan IMPRESSION: 1. Interval resolution [...] versus short-term follow-up CT scan as clinically Warranted. ??? Interval History: Last seein in 03/20 here. He is seen today with his partner worried about a right axillary lymph node which is on the opposite side from his initial Hodgkin's disease and left axillary radiation. He occasionally has night sweats but feels his weight has increased and he has not felt any other nodes. He is still smoking about a pack per day and seems a bit more motivated to quit smoking. Pain Score (from Vitals) 09/16/2021 Initial score - Final score 0 Location - Comment - Objective: Vitals: 09/16/21 1501 Pulse: 82 Weight: 58.4 kg (128 lb 12.8 oz) Wt Readings from Last 3 Encounters: 09/16/21 58.4 kg (128 lb 12.8 oz) 01/09/21 57.6 kg (127 lb) 10/09/20 55 kg (121 lb 4.1 oz) ECOG performance Status: (0) Fully active, able to carry on all predisease performance without restriction General the patient is a thin male in no apparent distress. The oral cavity is without mucosal lesions. I palpate no cervical, supraclavicular, left axillary, epitrochlear or inguinal adenopathy. In the right axilla I am able to feel a 5- 10mm benign mid axillary node which moves over the ribs. Lungs are clear. Cardiac exam reveals regular rate Lab Results: Lab Results Component Value Date WBC 13.13 (H) 05/01/2013 HGB 15.5 05/01/2013 HCT 47.5 05/01/2013 PLT 318 05/01/2013 ALT 25 05/01/2013 AST 31 05/01/2013 NA 141 05/01/2013 K 5.1 (H) 05/01/2013 CL 102 05/01/2013 CREATININE 0.74 05/01/2013 BUN 15 05/01/2013 CO2 24 05/01/2013 TSH 0.73 05/01/2013 PSA 1.5 01/01/2021 Imaging: US OUTSIDE IMAGES BODY This is a non-reportable exam. I spent a total of 30 minutes on the date of this encounter meeting with the patient and reviewing documentation/coordinating care as described in the above note. No procedures were performed at the time of the visit. Ed Brady MD Radiation Oncology-[facility] (p) [phone] / (f) [phone] documented in this encounter Plan of Treatment Not on file documented as of this encounter Results * CT ABDOMEN PELVIS [...] Ed Brady MD IMG CT ORDERABLES * CREATININE (09/16/2021 15:58 EDT) Creatinine 0.71 0.66 - 1.25 mg/dL 09/16/2021 17:34 EDT [facility] eGFR 106 >60 mL/min/1.73 m2 09/16/2021 17:34 EDT [facility] Blood VENOUS BLOOD / Unknown Venipuncture / Unknown 09/16/2021 15:58 EDT 09/16/2021 17:07 EDT Ed Brady MD CHEMISTRY & BLOOD GAS ORDERABLES [facility] [address] [place] [address] documented in this encounter Visit Diagnoses Diagnosis 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 Medication Sig Dispensed Refills Start Date End Date tadalafiL (CIALIS) 10 mg tablet Take 2.5 mg by mouth daily. buprenorphine-naloxone (SUBOXONE) 2-0.5 mg tablet, sublingual Place 1 Tablet under the tongue daily. added in this encounter Care Teams Profile Saw Operator Relationship Specialty Start Date End Date Lian Parnell FNP [address] [place] [address] PCP - General Family Medicine - Primary Care 09/16/21 CHARLENE URIOSTEGUI Pulmonary Disease 01/29/21 documented as of this encounter
--- OUTSIDE RECORDS SUMMARY | 2024-02-03 13:15 | XMS_ITS | Encounter Summary ---
Author Organization [facility] Address [address] [place] [address] Care Team Providers Care Broadcast Producer Name Role Phone Lynn Solis FLIGHT SERVICE AGENT Primary Care Provider [phone] Lian Parnell LEAD GENERATOR Primary Care Provider [phone] Encounter Details Date Type Department Care Team (Late st Contact Info) Description 07/11/2020 Lab Requisition [facility] Pathology & [place] [address] Outr Resulting Lab, Provider Social History Tobacco [...] Procedure Name Priority Date/Time Associated Diagnosis Comments PREALBUMIN Routine 07/10/2020 16:17 EST documented in this encounter Results * PREALBUMIN (07/10/2020 16:17 EST) Prealbumin 22 20 - 40 mg/dL 07/12/2020 10:03 EST [facility] Blood VENOUS BLOOD / Unknown 07/10/2020 16:17 EST 07/11/2020 22:37 EST Provider Outr Resulting Lab CHEMISTRY & BLOOD GAS ORDERABLES [facility] [address] [place] [address] documented in this encounter Visit Diagnoses Not on filedocumented in this encounter Care Teams Broadcast Producer Relationship Specialty Start Date End Date Lynn Solis, NIALL [address] [place] [address] PCP - General 05/28/14 09/15/21 Lian Parnell FNP [address] [place] [phone] PCP - General Family Medicine - Primary Care 09/16/21 CHARLENE URIOSTEGUI Pulmonary Disease 01/29/21 documented as of this encounter
--- OUTSIDE RECORDS SUMMARY | 2024-02-03 13:15 | XMS_ITS | Encounter Summary ---
Author Organization [facility] Address [address] [place] [address] Care Team Providers Care Volunteer Assistant Name Role Phone Lynn Solis EDUCATION PROFESSOR Primary Care Provider [phone] Lian Parnell MANAGER FILE Primary Care Provider [phone] Encounter Details Date Type Department Care Team (Late st Contact Info) Description 06/12/2020 Lab Requisition [facility] Pathology & [place] [address] Outr Resulting Lab, Provider Social History Tobacco [...] Priority Date/Time Associated Diagnosis Comments PREALBUMIN Routine 06/12/2020 14:52 EST documented in this encounter Results * PREALBUMIN (06/12/2020 14:52 EST) Prealbumin 22 20 - 40 mg/dL 06/13/2020 10:39 EST [facility] Blood VENOUS BLOOD / Unknown 06/12/2020 14:52 EST 06/12/2020 21:46 EST Provider Outr Resulting Lab CHEMISTRY & BLOOD GAS ORDERABLES [facility] [address] [place] [address] documented in this encounter Visit Diagnoses Not on filedocumented in this encounter Care Teams Volunteer Assistant Relationship Specialty Start Date End Date Lynn Solis, NIALL [address] [place] [address] PCP - General 05/28/14 09/15/21 Lian Parnell FNP [address] [place] [phone] PCP - General Family Medicine - Primary Care 09/16/21 CHARLENE URIOSTEGUI Pulmonary Disease 01/29/21 documented as of this encounter
--- OUTSIDE RECORDS SUMMARY | 2024-02-03 13:15 | XMS_ITS | Encounter Summary ---
Author Organization [facility] Address [address] [place] [address] Care Team Providers Care Receptionist/Telephone Operator Name Role Phone Lynn Solis DRYER FEEDER Primary Care Provider [phone] Lian Parnell EDGING MACHINE OPERATOR Primary Care Provider [phone] Encounter Details Date Type Department Care Team (Late st Contact Info) Description 03/25/2021 Lab Requisition [facility] Pathology & [place] [address] Outr Resulting Lab, Provider Social History Tobacco [...] Procedure Name Priority Date/Time Associated Diagnosis Comments CHRONIC HEPATITIS PROFILE, UNKNOWN TYPE Routine 03/24/2021 18:07 EDT documented in this encounter Results * CHRONIC HEPATITIS PROFILE, UNKNOWN TYPE (03/24/2021 18:07 EDT) Hep B Surface Ag Negative Negative 03/26/20 14:02 EDT [facility] Hep B Surface Ab, Quantitative <3.1 See Note mIU/mL 03/26/2021 14:02 EDT [facility] Comment: Reference Range for Hep B Surface Ab, Quant: Positive: >= 10.0 mIU/mL Negative: ??< 10.0 mIU/mL Patient is presumed to not be immune to infection with Hepatitis B Virus. Hep B Surface Ab, Qualitative Negative See Note 03/26/2021 14:02 EDT [facility] Comment: Reference Range for Hep B Surface Ab, Qual: Unvaccinated: ??Negative Vaccinated: ??Positive Hepatitis B Core Ab, Total Negative Negative 03/26/2021 14:02 EDT [facility] Hep C Antibody Negative Negative 03/26/2021 14:02 T [facility] Blood VENOUS BLOOD / Unknown 03/24/2021 18:07 EDT 03/25/2021 16:16 EDT Provider Outr Resulting Lab CHEMISTRY & BLOOD GAS ORDERABLES Performing Organization Address City/State/[facility] Co de Phone Number [facility] [address] [place] [address] documented in this encounter Visit Diagnoses Not on filedocumented in this encounter Care Teams Receptionist/Telephone Operator Relationship Specialty Start Date End Date Lynn Solis NP [address] [place] [address] PCP - General 05/28/14 09/15/21 Lian Parnell FNP [address] [place] [phone] PCP - General Family Medicine - Primary Care 09/16/21 CHARLENE URIOSTEGUI Pulmonary Disease 01/29/21 documented as of this encounter
--- OUTSIDE RECORDS SUMMARY | 2024-02-03 13:15 | XMS_ITS | Encounter Summary ---
Author Organization [facility] Address [address] [place] [address] Care Team Providers Care Acting Manager Name Role Phone Lynn Solis MANAGER DRIVE Primary Care Provider [phone] Lian Parnell TRANSPORTATION SECURITY OFFICER Primary Care Provider [phone] Encounter Details Date Type Department Care Team (Late st Contact Info) Description 10/29/2020 Lab Requisition [facility] Pathology & [place] [address] Outr Resulting Lab, Provider Social History Tobacco [...] Procedure Name Priority Date/Time Associated Diagnosis Comments LYME AB Routine 10/29/2020 14:25 EDT documented in this encounter Results * LYME AB (10/29/2020 14:25 EDT) Lyme Ab Negative Negative 10/30/2020 11:37 EDT [facility] Comment:New 3rd generation a ssay in use 11/08/2019 Blood VENOUS BLOOD / Unknown 10/29/2020 14:25 EDT 10/29/2020 21:47 EDT Provider Outr Resulting Lab IMMUNOLOGY A ND SEROLOGY ORDERABLES [facility] [address] [place] [address] documented in this encounter Visit Diagnoses Not on filedocumented in this encounter Care Teams Acting Manager Relationship Specialty Start Date End Date Lynn Solis, NIALL [address] [place] [address] PCP - General 05/28/14 09/15/21 Lian Parnell FNP [address] [place] [phone] PCP - General Family Medicine - Primary Care 09/16/21 CHARLENE URIOSTEGUI Pulmonary Disease 01/29/21 documented as of this encounter
--- OUTSIDE RECORDS SUMMARY | 2024-02-03 13:15 | XMS_ITS | Encounter Summary ---
Author Organization [facility] Address [address] [place] [address] Care Team Providers Care Central Supply Clerk Name Role Phone Lynn Solis SHAKER SCREEN OPERATOR Primary Care Provider [phone] Lian Parnell SOCIAL MEDIA EDITOR Primary Care Provider [phone] Encounter Details Date Type Department Care Team (Late st Contact Info) Description 06/24/2020 Lab Requisition [facility] Pathology & [place] [address] Outr Resulting Lab, Provider Social History Tobacco [...] ID No Anaerobes Isolated 06/28/2020 7:48 EST [facility] Tissue ENTIRE UPPER LIMB / Unknown 06/23/2020 14:23 EST 06/24/2020 21:39 EST Provider Outr Resulting Lab MICROBIOLOGY - GENERAL ORDERABLES Performing Organization Address City/State/[facility] Co de Phone Number [facility] [address] [place] [address] documented in this encounter Visit Diagnoses Not on filedocumented in this encounter Care Teams Central Supply Clerk Relationship Specialty Start Date End Date Lynn Solis, SHAKER SCREEN OPERATOR [address] [place] [address] PCP - General 05/28/14 09/15/21 Lian Parnell FNP [address] [place] [phone] PCP - General Family Medicine - Primary Care 09/16/21 CHARLENE URIOSTEGUI Pulmonary Disease 01/29/21 documented as of this encounter
--- OUTSIDE RECORDS SUMMARY | 2024-02-03 13:15 | XMS_ITS | Encounter Summary ---
Author Organization [facility] Address [address] [place] [address] Care Team Providers Care Die Fitter Name Role Phone Lynn Solis NP Primary Care Provider [phone] Reason for Visit * (Routine) - Receiving Office to Obtain Authorization Specialty Diagnoses / Procedures Referred By Mavis rhodes Referred To Contact Procedures CT OUTSIDE IMAGES BODY Unknown, Provider, Referral ID Status Reason Start Date Expiration Date Visits Requested Visits Authorized [id number] Receiving Office to Obtain Authorization 09/11/2020 1 1 Encounter Details Date Type Department Care Team (Latest Contact Info) Description 09/07/2020 Hospital Encounter [facility] Center Secondary Reads [place] Discharge Disposition: Home or [...] Date/Time Associated Diagnosis Comments CT OUTSIDE IMAGES BODY Routine 09/11/2020 8:42 EDT documented in this encounter Results * CT OUTSIDE IMAGES BODY (09/11/2020 8:42 EDT) Narrative 09/11/2020 8:42 EDT This is a non-reportable exam. Provider Unknown MD KLINE OTHER IMAGING OR DERABLES documented in this encounter Visit Diagnoses Not on filedocumented in this encounter Care Teams Die Fitter Relationship Specialty Start Date End Date Lynn Solis, INSOLE FILLER [address] [place] [address] PCP - General 05/28/14 09/15/21 documented as of this encounter
--- OUTSIDE RECORDS SUMMARY | 2024-02-03 13:15 | XMS_ITS | Encounter Summary ---
Author Organization [facility] Address [address] [place] [address] Care Team Providers Care Photo Lab Manager Name Role Phone Lynn Solis NP Primary Care Provider [phone] Reason for Visit * Reason Onset Date Comments Other 07/19/2020 Encounter Details Date Type Department Care Team (Late st Contact Info) Description 07/19/2020 Telephone [facility] Adult Hematology & Oncology [address] [place] [phone] Jaxon Stephens MD [address] [place] [address] [address] [place] [phone] Other Social History Tobacco Use Types Packs/Day Years [...] * Telephone Encounter - Veronica Guzmán - 07/19/2020 1115 EST faxed * Telephone Encounter - Tamar Fong RN - 07/19/2020 1056 EST Marko Naik MD - [facility] * Telephone Encounter - Veronica Guzmán - 07/19/2020 1038 EST DO, your 07/10/20 office note states to CC Dr Sofia. What is this providers first name? Thank you documented in this encounter Plan of Treatment Not on file documented as of this encounter Visit Diagnoses Not on filedocumented in this encounter Care Teams Photo Lab Manager Relationship Specialty Start Date End Date Lynn Solis NP [address] [place] [address] PCP - General 05/28/14 09/15/21 documented as of this encounter
--- OUTSIDE RECORDS SUMMARY | 2024-02-03 13:15 | XMS_ITS | Encounter Summary ---
Author Organization [facility] Address [address] [place] [address] Care Team Providers Care Pres[facility] Clergy Name Role Phone Will Lynn Iris TIERNEY Primary Care Provider [phone] Reason for Visit * Reason Comments Follow-up Encounter Details Date Type Department Care Team (Late st Contact Info) Description 06/12/2020 14:00 EST Office Visit [facility] Adult Hematology & Oncology [facility] [place], [place] [phone] Jaxon Stephens MD [address] [place] [address], [facility] [address] [place] [address] 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 Follow up Note Fran Justin Sr. :1965 Age:55 y.o. Gender:male Date of Service:06/11/2020 History of present illness: 1: Classic Hodgkin [...] pain, Needs Port. Not eating, felt terrible -04/2021 Increased psych issues , refered to Psych. -Carpal tunnel worsening, declined more therapy until hand surgery, scheduled for 06/14/2020 - 2: History of tobacco abuse. -12/29/2018 CT chest Amair[place]. No malignancy. Left axilla showing a 1.3 cm lymph node shortness axis. - 11/22/2019 2 pack/day for 46 years for total of 42 pack to pack year history. Followed by Dr Donta hernandez in [place]. -Scheduled for a yearly screening CT chest [...] post excisional biopsy/seroma. 03/2020 Interim History: Fran is a 55-year-old male diagnosed with classic Hodgkin lymphoma in the fall 2019. Biopsy of the left axillary lymph node later infected required opening of the wound. On April 15 received first cycle of R-CHOP (performance status of 3, smoking at least 2 packs of cigarettes per day unable to stop, malnourished, not a candidate for ABVD). Due to other comorbidities including psychiatric decompensation has not been able to receive cycle #2. Sometime in April had worsening pain in his right hand due to carpal tunnel syndrome declined further therapy until that surgery was performed this is scheduled for June 14. He continues to lose weight patient states he is eating however his partner states that he does notkeep any food, only a small plate of food in the evening during the daytime he will have innumerable cups of coffee drinks about 2 L of Coca-Cola and nothing else. He appears thin tired and fatigued. ROS: Review of Systems Constitutional: Positive for [...] is nervous/anxious and has insomnia. Vital Signs: No data found. Wt Readings from Last 3 Encounters: 03/27/20 59.3 kg (130 lb 12.8 oz) 03/13/20 59 kg (130 lb 1.1 oz) 11/23/19 63.9 kg (140 lb 14 oz) Ht Readings from Last 1 Encounters: 03/27/20 162.6 cm (64) Estimated body surface area is 1.64 meters squared as calculated from the following: Height as of 03/27/20: 162.6 cm (64). Weight as of 03/27/20: 59.3 kg (130 lb 12.8 oz). Physical exam: ECOG Performance Status: 2 Physical Exam Constitutional: Comments: Appears thin, ambulating under his own power. Does not appear particularly anxious or depressed. HENT: Head: Normocephalic. Eyes: Extraocular Movements: Extraocular movements intact. Neck: Musculoskeletal: Normal range of motion and neck supple. Cardiovascular: Rate and Rhythm: Normal rate and regular rhythm. Pulmonary: Effort: Pulmonary effort is normal. No respiratory distress. Breath sounds: Wheezing and rales present. Abdominal: Palpations: Abdomen is soft. Musculoskeletal: General: No swelling. Right lower leg: No edema. Left lower leg: No edema. Neurological: Mental Status: He is alert. Psychiatric: Comments: Mildly anxious. Not particularly depressed PMHx: Past Medical History: Diagnosis Date ??? Anxiety ??? Depression ??? Emphysema lung (HCC-CMS) ??? Emphysema of lung (HCC-CMS) ??? ETOH abuse ??? GERD (gastroesophageal reflux disease) ??? Seizures ([facility]-CMS) Allergies: Allergies Allergen Reactions ??? Wellbutrin [Bupropion [...] orders placed or performed in visit on 04/15/20 HEPATITIS B PROFILE Result Value Ref Range Hep B Surface Ag Negative Negative Hep B Surface Ab, Quantitative <3.1 See Note mIU/mL Hep B Surface Ab, Qualitative Negative See Note Hepatitis B Core Ab, Total Negative Negative Imaging: PET CT EYE TO THIGH EXAM: PET/CT SCAN/PET/CT SKULL BASE TO NE EX. D/ (7408) CLINICAL INFORMATION: C81.44 LYMPHOCYTE-RICH HODGKIN LYMPHOMA OF LYMPH NODES OF AXILLA Indication: Lymphoma Comparison: None available. Technique: Following the IV injection of FDG and a standard uptake period, a noncontrast CT scan followed by PET scan were acquired along with the length of the body from approximately the base of the skull to the mid thighs. The noncontrast CT was used for automatic localization and photon attenuation correction of the PET scan. Dose: 12.2 mCi Findings: PET findings: A centrally necrotic 5.0 x 5.6 cm left axillary mass is peripherally FDG avid and demonstrates an SUV max of 8.0. A right axillary lymph node is borderline enlarged, measuring 1.1 cm short axis, but maintains a fatty hilum. Uptake of this lymph node is low, with SUV max of 1.3 which is less than liver background of 1.8. This is likely benign. There is low-level uptake within the distal esophagus, where there is an SUV max of 2.9. Note is also made of focally elevated uptake within the cecum, where there is an SUV max of 5.9 and at the rectum, where there is no see a max of 4.3. Additional low-dose CT findings: Emphysema. Atherosclerosis. The spleen is normal in size Impression: 1. 5.6 cm centrally necrotic FDG avid left axillary mass, consistent with history of lymphoma. No other FDG avid nodes are detected. The spleen is normal in size. 2. Mildly elevated uptake within the distal esophagus. Please correlate clinically and consider further assessment with endoscopy. 3. Focally elevated uptake within the cecum and rectum. This is highly nonspecific. Please correlate with colonoscopy. REM/kad Reported By: Kody Parry MD CC: Transcribed Date/Time: 2020 (8979) Lead Burner Supervisor: TRACIE Printed Date/Time: 2020 (8497) PAGE 1 Signed Report Assessment: 1. Hodgkin lymphoma. He received 1 dose of therapy in March had a psychological decompensation which required inpatient management. He is having worsening symptoms from his carpal tunnel and does not want to pursue any further therapy until that is managed with surgery scheduled for this . After surgery he did agree to proceed with a port placement and reinitiate therapy for the Hodgkin's,. He is scheduled for port placement on July 05 with a follow-up here in this clinic July 10 to consider initiating therapy. 2. Carpal tunnel syndrome scheduled for surgery June 14. 3. Depression anxiety seems to be compensated 4. Relative malnutrition: Patient is unable to gain weight due to very poor diet, according to his partner he drinks 2 L of Coca-Cola a day innumerable amounts of coffee throughout the day. And only has a small meal in the evening. Recommended he discontinue his all Coca-Cola products limit caffeine as tolerated. He needs to eat at least 3 meals a day. His partner will try to encourage him to do so. Plan: 1 port placement July 05. 2. Follow-up here July 10 to consider reinitiating therapy. Consult time 40 minutes. 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
--- OUTSIDE RECORDS SUMMARY | 2024-02-03 13:15 | XMS_ITS | Encounter Summary ---
Author Organization [facility] Address [address] [place] [address] Care Team Providers Care Compressor House Operator Name Role Phone Lynn Solis FELT HAT POUNCING OPERATOR HAND Primary Care Provider [phone] Reason for Visit * Reason Onset Date Comments Update 10/04/2020 Encounter Details Date Type Department Care Team (Late st Contact Info) Description 10/04/2020 Telephone [facility] Hematology & Oncology [address] [place] [phone] Vira Stephens MD [address] [place] [address] [address] [place] [phone] Update Social History Tobacco Use Types Packs/Day Years [...] encounter Miscellaneous Notes * Telephone Encounter - [place], Meesha, RN - 10/04/2020 1884 EDT Images from the original note were not included. Katherine nurse from [facility] called with an update on Fran Justin 61 She states she will fax Dr. Jordan note, confirmed fax #. Mr. Justin had a loculated pleural effusion TPA rd ?? Which went well. She states they saw him back and he had some atelectasis still on the right side. Would like us to f/u with a CT scan in 3 months and refer back to Dr. Jordan if anything is seen on the CT scan. VIRA jimenez note from Dr. Jordan is being faxed to us. Vira Stephens MD You 4 days ago Please let her know I was aware of the consult note. ??I have already scheduled a follow-up CT scanin November. ??This been done at [facility] we will send them a copy. Thank you Message text 10/08/20 15:31 noted documented in this encounter Plan of Treatment Not on file documented as of this encounter Visit Diagnoses Not on filedocumented in this encounter Care Teams Compressor House Operator Relationship Specialty Start Date End Date Lynn Solis NP [address] [place] [address] PCP - General 05/28/14 09/15/21 documented as of this encounter
--- OUTSIDE RECORDS SUMMARY | 2024-02-03 13:15 | XMS_ITS | Encounter Summary ---
Author Organization [facility] Address [address] [place] [address] Care Team Providers Care Consumer Credit Counselor Name Role Phone Lynn Soils NP Primary Care Provider [phone] Reason for Visit * (Routine) - Receiving Office to Obtain Authorization Specialty Diagnoses / Procedures Referred By Mavis rhodes Referred To Contact Procedures XR OUTSIDE IMAGES CHEST Unknown, Provider, Referral ID Status Reason Start Date Expiration Date Visits Requested Visits Authorized [id number] Receiving Office to Obtain Authorization 09/11/2020 1 1 Encounter Details Date Type Department Care Team (Latest Contact Info) Description 09/07/2020 Hospital Encounter [facility] Center Secondary Reads [place] Discharge [...] Procedure Name Priority Date/Time Associated Diagnosis Comments XR OUTSIDE IMAGES CHEST Routine 09/11/2020 8:41 EDT documented in this encounter Results * XR OUTSIDE IMAGES CHEST (09/11/2020 8:41 EDT) Narrative 09/11/2020 8:41 EDT This is a non-reportable exam. Provider Unknown MD KLINE OTHER IMAGING OR DERABLES documented in this encounter Visit Diagnoses Not on filedocumented in this encounter Care Teams Consumer Credit Counselor Relationship Specialty Start Date End Date Lynn Solis, COIL MACHINE SUPERVISOR [address] [place] [address] PCP - General 05/28/14 09/15/21 documented as of this encounter
--- OUTSIDE RECORDS SUMMARY | 2024-02-03 13:15 | XMS_ITS | Encounter Summary ---
Author Organization [facility] Address [address] [place] [address] Care Team Providers Care Sr. Manager Name Role Phone Lian Parnell Primary Care Provider [phone] Encounter Details Date Type Department Care Team (Late st Contact Info) Description 09/16/2021 Orders Only [facility] CT Scan [address] [place] [address] Melinda Carrington Social History Tobacco Use Types Packs/Day Years [...] on filedocumented in this encounter Care Teams Sr. Manager Relationship Specialty Start Date End Date Lian Parnell FNP [address] [place] [address] PCP - General Family Medicine - Primary Care 09/16/21 CHARLENE URIOSTEGUI Pulmonary Disease 01/29/21 documented as of this encounter
--- OUTSIDE RECORDS SUMMARY | 2024-02-03 13:15 | XMS_ITS | Encounter Summary ---
Author Organization [facility] Address [address] [place] [address] Care Team Providers Care Rock Crusher Operator Name Role Phone Will Lynn B GASTROENTEROLOGIST Primary Care Provider [phone] Reason for Visit * Reason Onset Date Comments Appointment Related 07/16/2020 Encounter Details Date Type Department Care Team (Late st Contact Info) Description 07/16/2020 Telephone [facility] Adult Hematology & Oncology [address] [place] [phone] Jaxon Stephens MD [address] [place] [address] [address] [place] [phone] Appointment Related Social History Tobacco Use Types [...] encounter Miscellaneous Notes * Telephone Encounter - Angelo, Dionisio, MD - 07/17/2020 1653 EST Orders completed and signed on clinic note from 07/10/2020. Thank you * Telephone Encounter - Rachel Vee, KASANDRA - 07/16/2020 0942 EST Called [facility], spoke with Santa. She states they don't do PET scans here, Dr. Stephens will need to order it in our system in order to get test done here. Dr. Stephens, please order PET scan and I will call patient to advise we will get that scheduled onceordered. * Telephone Encounter - Holli Martínez - 07/16/2020 0934 EST PTS girlfriend called wanting to R/S a PET scan, however there is no order for a PET scan in the system. Says PT is usually seen at [facility]. documented in this encounter Plan of Treatment Not on file documented as of this encounter Visit Diagnoses Not on filedocumented in this encounter Care Teams Rock Crusher Operator Relationship Specialty Start Date End Date Lynn Solis NP [address] [place] [address] PCP - General 05/28/14 09/15/21 documented as of this encounter
--- OUTSIDE RECORDS SUMMARY | 2024-02-03 13:15 | XMS_ITS | Encounter Summary ---
Author Organization [facility] Address [address] [place] [address] Care Team Providers Care Rec Therapist Name Role Phone Lynn Solis REFRIGERATION SERVICE TECHNICIAN Primary Care Provider [phone] Lian Parnell FORM MAKER PLASTER Primary Care Provider [phone] Encounter Details Date Type Department Care Team (Late st Contact Info) Description 09/02/2021 Lab Requisition [facility]ology & Laboratory Medicine - [address] [address] Outr Resulting Lab, Provider Social History Tobacco [...] Date/Time Associated Diagnosis Comments HEPATITIS B SURFACE ANTIBODY Routine 09/02/2021 15:40 EDT documented in this encounter Results * HEPATITIS B SURFACE ANTIBODY (09/02/2021 15:40 EDT) Hep B Surface Ab, Quantitative 6.4 See Note mIU/mL 09/03/2021 10:41 EDT [facility] Comment: Reference Range for Hep B Surface Ab, Quant: Positive: >= 10.0 mIU/mL Negative: ??< 10.0 mIU/mL Patient is presumed to not be immune to infection with Hepatitis B Virus. Hep B Surface Ab, Qualitative Negative See Note 09/03/2021 10:41 EDT [facility] Comment: Reference Range for Hep B Surface Ab, Qual: Unvaccinated: ??Negative Vaccinated: ??Positive Blood VENOUS BLOOD / Unknown 09/02/2021 15:40 EDT 09/02/2021 21:42 EDT Provider Outr Resulting Lab CHEMISTRY & BLOOD GAS ORDERABLES [facility] [address] [place] [address] documented in this encounter Visit Diagnoses Not on filedocumented in this encounter Care Teams Rec Therapist Relationship Specialty Start Date End Date Lynn Solis NP [address] [place] [address] PCP - General 05/28/14 09/15/21 Lian Parnell FNP [address] [place] [address] PCP - General Family Medicine - Primary Care 09/16/21 CHARLENE URIOSTEGUI Pulmonary Disease 01/29/21 documented as of this encounter
--- OUTSIDE RECORDS SUMMARY | 2024-02-03 13:15 | XMS_ITS | Encounter Summary ---
Author Organization [facility] Address [address] [place] [address] Care Team Providers Care Retail Event Assistant Name Role Phone Will Lynn Iris GROUND SURVEILLANCE SYSTEMS OPERATOR Primary Care Provider [phone] Reason for Visit * Reason Onset Date Comments Other 10/25/2020 Encounter Details Date Type Department Care Team (Late st Contact Info) Description 10/25/2020 Telephone [facility] Hematology & Oncology [address] [place] [id number] Melita Epstein RN Other Social History Tobacco Use Types Packs/Day [...] encounter Miscellaneous Notes * Telephone Encounter - Rachel Vee RN - 10/25/2020 1616 EDT Alvaro, Cate B, FELTMAKER AND WEIGHER to You Just now Hi Em, APAP 650-1000mg and IBU 600mg 2 or 3 times a day. ER if pain gets worse. 0415- called patient and advise of above. He states he was just taking 1000mg of APAP and 400mg of IBU in the morning and at night. Advised he can take 600mg of IBU 2-3 times a day as well as 650-1000 of APAP. Suggested trying to take them a few hours apart and keep on a schedule so that pain doesn't get ahead of him. Advised if pain got to a 10 like he explained it did the other day, recommended he go to the ER. He states his pain level is about a 7 now. Answered all questions patient had and he is good with plan. Also advised him to call control room technician provider if he ran into issues over the weekend. He acknowledged understanding. * Telephone Encounter - Melita Epstein RN - 10/25/2020 7992 EDT Patient states, I am in alot of pain, port is bothering me quiet a bit feels irritated all the time like needles when I touch it, woke up crying in pain in my bones, my bones are hurting even my skin to the touch and I don't know what to do, If I need to get something for pain. I had one pain pill left from when I was at [facility] and his fiance gave him it and it helped a little,but not a lot (patient can't remember what it was a little wite pill). States he keeps losing weight and doesn't know why currently 120# Patient denies any bleeding, bruising or fevers. CALL: [phone] OR [phone] Please advise SEND back to Rachel Romero Or Melita Sutton (I will be leaving at 2:30) documented in this encounter Plan of Treatment Not on file documented as of this encounter Visit Diagnoses Not on filedocumented in this encounter Care Teams Retail Event Assistant Relationship Specialty Start Date End Date Lynn Solis NP [address] [place] [address] PCP - General 05/28/14 09/15/21 documented as of this encounter
--- OUTSIDE RECORDS SUMMARY | 2024-02-03 13:16 | XMS_ITS | Encounter Summary ---
Author Organization [facility] Address [address] [place] [address] Care Team Providers Care Front Desk Supervisor Name Role Phone Lynn Solis NP Primary Care Provider [phone] Reason for Visit * (Routine) - Receiving Office to Obtain Authorization Specialty Diagnoses / Procedures Referred By Mavis rhodes Referred To Contact Procedures CT OUTSIDE IMAGES CHEST Unknown, Provider, Referral ID Status Reason Start Date Expiration Date Visits Requested Visits Authorized [id number] Receiving Office to Obtain Authorization 08/08/2020 1 1 Encounter Details Date Type Department Care Team (Latest Contact Info) Description 01/24/2020 - 01/24/2020 23:59 EDT Hospital Encounter [facility] Secondary Reads [place] Discharge Disposition: Home [...] 2 Puffs as directed every 4 hours. lamoTRIgine (LAMICTAL) 100 mg tablet Take 1.5 Tablets by mouth 2 times daily. 12/19/2019 NAPROXEN ORAL Take by mouth daily. VITAMIN B-12 1,000 mcg tablet Take 1 Tablet by mouth daily. 01/23/2020 atomoxetine (STRATTERA) 40 mg capsule Take 40 mg by mouth daily 03/13/2020 famotidine (PEPCID) 40 mg tablet Take 40 mg by mouth at bedtime. 11/02/2022 gabapentin (NEURONTIN) 100 mg capsule Take 1 Cap by mouth 3 times daily. 90 Cap 2 05/30/2014 03/13/2020 lamoTRIgine (LAMICTAL) 200 mg tablet Take 100 mg by mouth 2 times daily. 01/09/2021 methylphenidate HCl (RITALIN;METHYLIN) 5 mg tablet Take 5 mg by mouth daily. 01/15/2020 07/11/2020 Omeprazole 20 mg tablet,delayed release (DR/EC) Take 20 mg by mouth daily. 04/27/2022 pregabalin (LYRICA) 100 mg capsule Take 100 mg by mouth 3 times daily. 03/13/2020 QUEtiapine (SEROQUEL) 100 mg tablet Take 100 mg by mouth 2 times daily . 03/13/2020 sildenafil citrate (VIAGRA) 100 mg tablet Take by mouth daily as needed. 01/21/2020 04/27/2022 documented as of this encounter Discharge Disposition Disposition Code Departure Means Destination Home or Self Care documented in this encounter Plan of Treatment Not on file documented as of this encounter Procedures Procedure Name Priority Date/Time Associated Diagnosis Comments CT OUTSIDE IMAGES CHEST Routine 08/08/2020 6:56 EST documented in this encounter Results * CT OUTSIDE IMAGES CHEST (08/08/2020 6:56 EST) Narrative 08/08/2020 6:56 EST This is a non-reportable exam. Provider Unknown MD KLINE OTHER IMAGING OR DERABLES documented in this encounter Visit Diagnoses Not on filedocumented in this encounter Care Teams Front Desk Supervisor Relationship Specialty Start Date End Date Lynn Solis, QUALITY CONTROLLER [address] [place] [address] PCP - General 05/28/14 09/15/21 documented as of this encounter
--- OUTSIDE RECORDS SUMMARY | 2024-02-03 13:16 | XMS_ITS | Encounter Summary ---
Author Organization [facility] Address [address] [place] [address] Care Team Providers Care Strategic Intelligence Officer Name Role Phone IssaalbaLynn brooks Iris CEMENTER MACHINE Primary Care Provider [phone] Reason for Visit * Reason Onset Date Comments Appointment Related 08/01/2014 Encounter Details Date Type Department Care Team (Late st Contact Info) Description 08/01/2014 Telephone [facility] Spine Program - [address] [place] [address] Marifre Costello PA-C [address] [facility] [place] [address] Appointment Related Social History Tobacco Use Types Packs/Day Years Used Date Smoking Tobacco: Every Day Cigarettes 1 45 Alcohol Use Standard Drinks/Week Comments Yes 0 (1 standard drink = 0.6 oz pure alcohol) 12-24 beers/day, but quit x 6 months ago Sex and Gender Information Value Date Recorded Sex Assigned at Not on file Gender Identity Male 11/20/2019 11:35 EDT Sexual Orientation Not on file documented as of this encounter Functional Status Cognitive Status Response Date of Assessm ent Because of a physical, menta l, or emotional condition, do you have serious difficulty concentrating, remembering, or making decisions? 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 I provided him with the phone number to reschedule the SPECT if he would like to proceed with it, and the number to schedule a f/u should he make another SPECT appointment. documented in this encounter Plan of Treatment Not on file documented as of this encounter Visit Diagnoses Not on filedocumented in this encounter Care Teams Strategic Intelligence Officer Relationship Specialty Start Date End Date Lynn Solis NP [address] [place] [address] PCP - General 05/28/14 09/15/21 documented as of this encounter
--- OUTSIDE RECORDS SUMMARY | 2024-02-03 13:16 | XMS_ITS | Encounter Summary ---
Author Organization [facility] Address [address] [place] [address] Care Team Providers Care Delivery Consultant Name Role Phone Lynn Solis CERAMIC COATER MACHINE Primary Care Provider [phone] Lian Parnell MOBILE MANAGER Primary Care Provider [phone] Encounter Details Date Type Department Care Team (Late st Contact Info) Description 05/02/2019 Lab Requisition [facility] Pathology & Laboratory Medicine - [address] [address] Unknown, Provider, Social History Tobacco Use Types [...] Date/Time Associated Diagnosis Comments VITAMIN B12 Routine 05/02/2019 11:49 EST documented in this encounter Results * VITAMIN B12 (05/02/2019 11:49 EST) Vitamin B12 433 211 - 911 pg/mL 05/03/2019 12:24 EST [facility] Blood VENOUS BLOOD / Unknown 05/02/2019 11:49 EST 05/02/2019 22:17 EST Provider Unknown CHEMISTRY & BLOOD GA S ORDERABLES Performing Organization Address City/State/[facility] Co de Phone Number [facility] [address] [place] [address] documented in this encounter Visit Diagnoses Not on filedocumented in this encounter Care Teams Delivery Consultant Relationship Specialty Start Date End Date Lynn Solis NP [address] [place] [address] PCP - General 05/28/14 09/15/21 Lian Parnell, MOBILE MANAGER [address] [place] [address] PCP - General Family Medicine - Primary Care 09/16/21 CHARLENE URIOSTEGUI Pulmonary Disease 01/29/21 documented as of this encounter
--- OUTSIDE RECORDS SUMMARY | 2024-02-03 13:16 | XMS_ITS | Encounter Summary ---
Author Organization [facility] Address [address] [place] [address] Care Team Providers Care Drop Wire Builder Name Role Phone Lynn Solis HAND INSERTER OPERATOR Primary Care Provider [phone] Lian Parnell LEGAL WRITING PROFESSOR Primary Care Provider [phone] Encounter Details Date Type Department Care Team (Late st Contact Info) Description 03/15/2020 Lab Requisition [facility] Pathology & [place] [address] Outr Resulting Lab, Provider Social History Tobacco [...] on filedocumented in this encounter Care Teams Drop Wire Builder Relationship Specialty Start Date End Date Lynn Solis, HAND INSERTER OPERATOR [address] [place] [address] PCP - General 05/28/14 09/15/21 Lian Parnell, LEGAL WRITING PROFESSOR [address] [place] [address] PCP - General Family Medicine - Primary Care 09/16/21 CHARLENE URIOSTEGUI Pulmonary Disease 01/29/21 documented as of this encounter
--- OUTSIDE RECORDS SUMMARY | 2024-02-03 13:16 | XMS_ITS | Encounter Summary ---
Author Organization [facility] Address [address] [place] [address] Care Team Providers Care Sweat Band Separator Name Role Phone Lynn Solis NAIL SETTER Primary Care Provider [phone] Encounter Details Date Type Department Care Team (Late st Contact Info) Description 01/02/2019 Results Only Imaging [facility] [phone] Unknown, Provider, Social History Tobacco Use Types [...] difficulty concentrating, remembering, or making decisions? Yes 01/31/2015 documented as of this encounter Plan of Treatment Pending Results Name Type Priority Associated Diagnoses Date /Time OUTSIDE IMAGES - CT CHEST Imaging 01/02/2019 11:52 EDT documented as of this encounter Visit Diagnoses Not on filedocumented in this encounter Care Teams Sweat Band Separator Relationship Specialty Start Date End Date Lynn Solis NAIL SETTER [address] [place] [address] PCP - General 05/28/14 09/15/21 documented as of this encounter
--- OUTSIDE RECORDS SUMMARY | 2024-02-03 13:16 | XMS_ITS | Encounter Summary ---
Author Organization [facility] Address [address] [place] [address] Care Team Providers Care Senior Db2 Systems Programmer Name Role Phone IssaalbaLynn brooks Iris TIERNEY Primary Care Provider [phone] Reason for Visit * Reason Comments Hip Pain bilateral L>R Back Pain mid back radiates to hips. * Consult (Routine) - Specialty Report Received Specialty Diagnoses / Procedures Referred By Mavis rhodes Referred To Contact Pain Medicine Diagnoses Low back pain radiating to both legs Marifer Costello PA-C [address] [facility] [place] [address] [facility] [address] [place] [address] Referral ID Status Reason Start Date Expiration Date Visits Requested Visits Authorized [id number] Specialty Report Received Specialty Services Required 06/25/2014 1 1 Encounter Details Date Type Department Care Team (Latest Contact Info) Description 07/03/2014 14:30 EST Office Visit [facility] Interventional Pain [address] [place] [address] Sawyer Anderson, DO [address] [facility] [address] [place] [address] Dani Tamayo MD [address] [place] [phone] Lumbosacral spondylosis without myelopathy (Primary Dx); Degeneration of lumbar or lumbosacral intervertebral disc; Facet arthropathy Social History Tobacco Use Types Packs/Day Years [...] Sign Reading Time Taken Comments Blood Pressure 178/93 07/03/2014 1451 EST Pulse 94 07/03/2014 1451 EST Temperature 36.4 ??C (97.6 ??F) 07/03/2014 1425 EST Respiratory Rate 16 07/03/2014 1451 EST Oxygen Saturation - - Inhaled Oxygen Concentration - - Weight 68 kg (150 lb) 07/03/2014 1425 EST Height 162.6 cm (5' 4) 07/03/2014 1425 EST Body Mass Index 25.75 07/03/2014 1425 EST documented in this encounter Functional Status Cognitive Status Response Date of Assessm ent Because of a physical, menta l, or emotional condition, do you have serious difficulty concentrating, remembering, or making decisions? 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 Keep track of your hours of relief and your percentage of relief today (0 to 100 , 0 = no relief and 100% = total relief). Separate the pressure and tightness that we caused you from your regular pain and see what your relief is. Call us back tomorrow with this information. Procedure end time:___3:00 Pain relief start time Returned to baseline pain Hours of relief Percentage of relief 0-100 (0 = no relief, 100 = total relief) You have had your bilateral lumbar Facet Steroid Injection. The purpose of this procedure has been to place medication which may help relieve your pain. Steroid may be used to decrease the swelling and nerve irritation which may be causing your pain. The following information should help you over the next few days regarding what you may expect. DO NOT drive a car for the remainder of the day. If you feel sore where the needle(s) entered for the block or develop a flare-up of pain over the next few days, please use ice on the area. You may leave the ice on for up to 20 minutes at a time. Do not use heat, as this may cause swelling. As long as your primary doctor has indicated no restrictions, you may take a mild pain medicine, such as acetaminophen (Tylenol), ibuprofen (Advil, Nuprin, Motrin IB, etc.) or aspirin, if needed. The steroid injection usually takes a few days to become effective. On average, you may notice somerelief in 3 -5 days. However, it may take up to 10 - 14 days to know whether the injection was helpful. If the block causes numbness/weakness, it should wear off within a few hours. If the area that the needle(s) were inserted becomes hot, red, swollen, or increasingly tender, or if you develop a fever (100.5 or greater) or chills along with these symptoms, please call our office immediately. If you develop increasingly severe neck/back pain, continued numbness or weakness of the arms/legs or changes in your bladder or bowel functions, please call our office immediately. Instructions for follow-up If you have any questions about your block, please call Patient Education Topic: Method: Handout and Verbal Taught to: Patient Barriers: None Outcomes: independent and verbalized understanding Signature: KASANDRA Dumont documented in this encounter Progress Notes * Julia Woodruff RN - 07/03/2014 1423 EST [facility] Rooming Note Does patient have a Gas Controller? Yes (RCT) Is patient NPO? (Solids since midnight & liquids for 4 hrs) na Blood Thinners: Is patient on Blood Thinners? None If yes, taking? If stopped, who authorized stopping? Related comments: Infections: Any recent infections, fever of illnesses? None If on antibiotics, is it 7-10 days past the date of completion of antibiotics? None : (for females of child-bearing age) Is there a chance current ? Other: * David Mcgarry DO - 07/03/2014 3104 EST Patient Name: Fran Justin . : 1965 Date of Service: 07/03/2014 Wellness Ambassador: Sawyer Anderson DO Avionics Mechanic: David Mcgarry DO Procedure: Diagnostic lumbar facet joint injection at bilateral L4-L5 and L5-S1 Interval History: Mr. Justin presents at the request of Marifer Costello for evaluation and treatment of his chronic back pain. Patient was last seen by Sukumarphoebekeya on 06/25/14 and states that his pain has not changed since that time. Please refer to that progress note for details regarding hispresentation and workup till this point. Briefly, patient reports low back pain primarily with occasional radiation into his lower extremities, worse with physical activities. Allergies: Allergies Allergen Reactions ??? No Known Drug Allergies Review of Systems: Negative for any fever, chills, nausea/vomiting, headaches, chest pain, palpitations, shortness of breath, bladder/bowel incontinence. No easy bruising, bleeding, anti-coagulation or known recent infections. Physical Examination: Vital signs: There were no vitals taken for this visit. Patient is alert, oriented x 3 and conversant. Able to stand and ambulate without difficulty. Gait is normal Lumbar spine is mildly tender to palpation. Examination of the lower extremities reveal normal strength. No gross sensory deficits. Assessment: 1. Lumbosacral spondylosis without myelopathy 2. Degeneration of lumbar or lumbosacral intervertebral disc 3. Facet arthropathy Plan: Proceed with diagnostic and possibly therapeutic facet joint injections at bilateral L4-L5 and L5-S1 Follow up: Please call us tomorrow with an update of the relief obtained after the diagnostic portion of this procedure. The patient plans to follow-up with Marifer Costello in the department of Orthopedics and we will be available for further evaluation and/or injections as necessary. Procedure: The patient gave informed written consent to proceed with this procedure following a detailed discussion of the risks and benefits associated with facet joint injections. Site was marked prior to starting the procedure. The patient was then placed in the prone position, the skin over the area was prepped with chlorhexadine, and the site was draped with sterile towels. Strict sterile technique wasmaintained throughout the procedure. A peter moment was performed with full staff present to identify the patient, verify the procedure being performed, and review allergies. Fluoroscopy was used to identify the anatomy and align the facet joints. The skin and subcutaneous tissue over the bilateral L4-L5 and L5-S1 facet joints was anesthetized with 2% lidocaine. A 22 gauge 3.5 inch Quincke needle was inserted under fluoroscopic guidance using coaxial technique into eachof the aforementioned facet joints. After negative aspiration, each joint was injected with 0.5 ml of 0.5% bupivacaine and 20 mg Depo-Medrol. A total of 80 mg was used. See nursing MAR for wasted medications There were no paresthesias during needle placement and aspiration was negative at all times. The patient tolerated the procedure well, there were no apparent complications, and he was discharged in stable condition. Written and verbal discharge instructions were reviewed with the patient prior to discharge. Attending attestation: I saw and examined the patient with the resident/fellow. I agree with the findings and plan of care documented in the resident's/fellow's note. I was present and participated during the entire procedure. Sawyer Anderson DO documented in this encounter Plan of Treatment Not on file documented as of this encounter Visit Diagnoses Diagnosis Lumbosacral spondylosis without myelopathy- Primary Degeneration of lumbar or lumbosacral intervertebral disc Facet arthropathy Spondylosis of unspecified site without mention of myelopathy documented in this encounter Administered Medications Inactive Administered Medications - up to 3 most recent administrations Medication Order MAR Action Action Date Dose Rate Site bupivacaine (PF) (MARCAINE) 0.5 % (5 mg/mL) injection 10 mg 10 mg (2 mL), intra-articular, NOW X1, 1 dose, On Tu07/03/14 at 1500, Routine Given by Other 07/03/2014 14:44 EST 10 mg methylPREDNISolone ACETATE (DEPO-MEDROL) injection 80 mg 80 mg, intra-articular, NOW X1, 1 dose, On 07/03/14 at 1500, Routine Given by Other 07/03/2014 14:44 EST 80 mg documented in this encounter Care Teams Senior Db2 Systems Programmer Relationship Specialty Start Date End Date Lynn Solis NP [address] [place] [address] PCP - General 05/28/14 09/15/21 documented as of this encounter
--- OUTSIDE RECORDS SUMMARY | 2024-02-03 13:16 | XMS_ITS | Encounter Summary ---
Author Organization [facility] Address [address] [place] [address] Care Team Providers Care Mortician Helper Name Role Phone Lynn Solis VINYL INSTALLER Primary Care Provider [phone] Lian Parnell PRESS BOX CUSTODIAN Primary Care Provider [phone] Encounter Details Date Type Department Care Team (Late st Contact Info) Description 03/15/2020 Lab Requisition [facility] [place] [address] Outr Resulting Lab, Provider Social History Tobacco [...] Procedure Name Priority Date/Time Associated Diagnosis Comments FUNGUS CULTURE/SMEAR Routine 03/15/2020 13:44 EDT documented in this encounter Results * FUNGUS CULTURE/SMEAR (03/15/2020 13:44 EDT) Organism ID Yeast 05/02/2020 10:26 [facility] Comment:Unable to identify. Fungal Smear No Fungi Seen 05/02/2020 10:26 [facility] Tissue AXILLARY LYMPH NODE STRUCTURE / Unknown 03/15/2020 13:44 EDT 03/15/2020 22:57 EDT Provider Outr Resulting Lab MICROBIOLOGY - GENERAL ORDERABLES [facility] [address] [place] [address] documented in this encounter Visit Diagnoses Not on filedocumented in this encounter Care Teams Mortician Helper Relationship Specialty Start Date End Date Lynn Solis NP [address] [place] [address] PCP - General 05/28/14 09/15/21 Lian Parnell FNP [address] [place] [address] PCP - General Family Medicine - Primary Care 09/16/21 CHARLENE URIOSTEGUI Pulmonary Disease 01/29/21 documented as of this encounter
--- OUTSIDE RECORDS SUMMARY | 2024-02-03 13:16 | XMS_ITS | Encounter Summary ---
Author Organization [facility] Address [address] [place] [address] Care Team Providers Care Folded Towel Machine Operator Name Role Phone Lynn Solis NP Primary Care Provider [phone] Reason for Visit * Reason Comments Follow-up Encounter Details Date Type Department Care Team (Latest Contact Info) Description 11/22/2019 12:00 EDT Office Visit [facility] Adult Hematology & Oncology [address] [place] [address] [phone] Jaxon Stephens MD [address] [place] [address] [address] [place] [address] Lymphadenopathy (Primary Dx) Social History Tobacco Use Types [...] Sign Reading Time Taken Comments Blood Pressure 127/65 11/23/2019 0829 EDT Pulse 78 11/23/2019 0829 EDT Temperature 36.4 ??C (97.5 ??F) 11/23/2019 0829 EDT Respiratory Rate 20 11/23/2019 0829 EDT Oxygen Saturation 98% 11/23/2019 0829 EDT Inhaled Oxygen Concentration - - Weight 63.9 kg (140 lb 14 oz) 11/23/2019 0829 ED T Height 162.6 cm (5' 4) 11/23/2019 0829 EDT Body Mass Index 24.18 11/23/2019 0829 EDT documented in this encounter Functional Status [...] Progress Notes * Jaxon Stephens MD - 11/22/2019 1200 EDT Hem/Onc. New Patient Note Fran Justin Sr. :1965 Age:54 y.o. Gender:male Date of Service:11/21/2019 History of present illness: 1- Left axillary enlarged lymph node. -10/31/2019 ultrasound of left axilla showing a 3.2 cm posterior axillary lymph node with vascular hilum. -11/22/2019 left posterior axillary lymph node measuring 2 cm. Assured patient I do not feel this represents lymphoma or other malignancy. Plan: Follow-up in the CT chest in December be performed for lung cancer screening. Follow-up in clinic 3 months later for reassurance. 2: History of tobacco abuse. -12/29/2018 CT chest [place]. No malignancy. Left axilla showing a 1.3 cm lymph node shortness axis. - 11/22/2019 2 pack/day for 46 years for total of 42 pack to pack year history. Followed by Dr Donta hernandez in [place]. -Scheduled for a yearly screening CT chest in December. History: Mr. Justin is a 54-year-old gentleman referred for second opinion regarding left axillary adenopathy.Patient states he felt a nodule on posterior aspect of the left axilla with a sensation of pressurein the area. This has been evaluated with an ultrasound of the axilla showing a 3.2 cm posterior axillary node with a vascular hilum, he is concerned that this may represent cancer and there seems michael some family members with diagnosis of malignancy. In the last 2 weeks he felt that the size. Denies fever sweats weight has remained more or less stable between 135 and 146 pounds over the last year, currently at 140 pounds. Denies of the nodules or masses. ROS: Review of Systems Constitutional: Negative for chills, fever and weight loss. HENT: Negative for hearing loss and sore throat. Eyes: Negative. Respiratory: Positive for cough (Chronic cough nonproductive secondary to tobacco abuse.), shortness of breath and wheezing. Negative for hemoptysis. Diagnosed with COPD followed by Dr. Mcneil pulmonary at [facility]. Had a CT of the chest December 2018 scheduled for follow-up in December 2019. Cardiovascular: Negative for chest pain, palpitations and leg swelling. Gastrointestinal: Negative for abdominal pain, blood in stool, melena, nausea and vomiting. Genitourinary: Negative for dysuria and hematuria. Musculoskeletal: Positive for back pain (Mild back pain for many years without any changes recently.). Skin: Negative for rash. Neurological: Negative for weakness and headaches. Endo/Heme/Allergies: Does not bruise/bleed easily. Psychiatric/Behavioral: History of depression and anxiety fairly well controlled. Vital Signs: No data found. Wt Readings from Last 3 Encounters: 03/23/19 65.8 kg (145 lb) 01/31/15 65.3 kg (144 lb) 07/03/14 68 kg (150 lb) Ht Readings from Last 1 Encounters: 03/23/19 162.6 cm (64) Estimated body surface area is 1.72 meters squared as calculated from the following: Height as of 03/23/19: 162.6 cm (64). Weight as of 03/23/19: 65.8 kg (145 lb). Physical exam: ECOG Performance Status: 0 Physical Exam Constitutional: He is oriented to person, place, and time. He appears well- nourished. No distress. HENT: Head: Normocephalic. Mouth/Throat: Oropharynx is clear and moist. Eyes: Conjunctivae and EOM are normal. No scleral icterus. Neck: Normal range of motion. Neck supple. No JVD present. No thyromegaly present. Cardiovascular: Normal rate and regular rhythm. Pulmonary/Chest: Effort normal. No stridor. No respiratory distress. He has wheezes. He has rales. He exhibits no tenderness. Left greater than right inspiratory and expiratory rhonchi and wheezing. Good air movement on both lung elizondo. Abdominal: Soft. Bowel sounds are normal. He exhibits no mass. Musculoskeletal: Normal range of motion. He exhibits no edema or deformity. Lymphadenopathy: He has no cervical adenopathy. He has axillary adenopathy. Right axillary: No pectoral and no lateral adenopathy present. Left axillary: Lateral (There is a 1.5 x 2 cm lymph node in the posterior aspect of the left axillajust on top of the border of the dorsalis major. It feels soft and doughy measuring 2 cm in longestlength 1 to 1.55 cm width. There is no other adenopathy.) adenopathy present. No pectoral adenopathy present. Right: No inguinal, no supraclavicular and no epitrochlear adenopathy present. Left: No inguinal, no supraclavicular and no epitrochlear adenopathy present. Neurological: He is oriented to person, place, and time. No cranial nerve deficit. Skin: Skin is warm and dry. Psychiatric: He has a normal mood and affect. PMHx: Past Medical History: Diagnosis Date ??? Anxiety ??? Depression ??? Emphysema lung (HCC-CMS) ??? Emphysema of lung (HCC-CMS) ??? ETOH abuse ??? GERD (gastroesophageal reflux disease) ??? Seizures (HCC-CMS) Allergies: Allergies Allergen Reactions ??? Wellbutrin [Bupropion Hcl] Seizures per patient Medications: Current Outpatient Medications Medication Sig Dispense Refill Last Dose ??? albuterol (PROVENTIL HFA, VENTOLIN HFA) 90 mcg/Actuation inhaler Inhale 2 Puffs as directed every 4 hours. Taking ??? atomoxetine (STRATTERA) 40 mg capsule Take 40 mg by mouth daily Taking ??? famotidine (PEPCID) 40 mg tablet Take 40 mg by mouth at bedtime. Not Taking ??? gabapentin (NEURONTIN) 100 mg capsule Take 1 Cap by mouth 3 times daily. (Patient not taking: Reported on 03/23/2019) 90 Cap 2 Not Taking ??? lamoTRIgine (LAMICTAL) 200 mg tablet Take 200 mg by mouth 2 times daily. Taking ??? NAPROXEN ORAL Take by mouth daily Not Taking ??? Omeprazole 20 mg tablet,delayed release (DR/EC) Take 20 mg by mouth daily. Not Taking ??? pregabalin (LYRICA) 100 mg capsule Take 100 mg by mouth 3 times daily. Taking ??? QUEtiapine (SEROQUEL) 100 mg tablet Take 100 mg by mouth 2 times daily . Taking No current facility-administered medications for this visit. Data Review: Labs: Imagin10[facility]31/2019[facility] Left axillary lymph node measuring 3.2 x 3 cm with a vascular hilum appears stable in size compared to previous CT scan from December 2018, however that was slightly enlarged compared to CT scan from 2012. . Other smaller normal-sized lymph nodes were also noted on both axilla. No enlarged lymph node seen on the right axilla. Assessment: 1. Single enlarged left axillary lymph node. First noted on CT scan of the chest in 2012, repeat CTof the chest (screening for tobacco abuse on December 2018) showed the lymph node was slightly larger, U/S of this axillary node October 2019 shows it has not changed in size compared to last year, measuring 3.2 x 3 x 1 cm also noted to have a normal looking hilum (unlikely to represent malignant adenopathy). On physical exam, today the nodule measures 2 x 1 cm, additionally the patient states this node has decreased in size in the last 3 weeks. On detailed examination no other lymphadenopathy, hepatosplenomegaly or lymphedema. He does not have B symptoms or hematologic abnormalities to suggest a lymphoproliferative disorder (chronically elevated WBC since 2017 secondary to 2 pack/day smoking). Reassured the patient I think this represents a benign reactive/scarred lymph nodes chronically enlarged, however will see him in follow-up 2 to 3 months to reexamine the node. 2. COPD Diagnosed with COPD followed by Dr. Mcneil pulmonary at [facility]. Had a CT of thechest December 2018 scheduled for follow-up in December 2019. 3. Tobacco abuse upwards of 2 packs/day since age 8 no radiographic evidence of pulmonary cancer, encouraged him to seek help and try 1 of the smoke cessation programs available through the [facility], we have a program at [facility] that is funded by the [facility] and free for him if he wishes to pursue it. 4. Family history on the mother side multiple cancers but they were all smokers, appears to have several different cancers which she cannot define. From his father's side mostly people from cardiac events also most of them were smokers. Note the indication for genetic testing. Plan: 1. Follow-up in 2 to 3 months for reexamination of the left axillary nodes. Jaxon Stephens MD [facility] documented in this encounter Plan of Treatment Not on file documented as of this encounter Visit Diagnoses Diagnosis Lymphadenopathy- Primary Enlargement of lymph nodes documented in this encounter Care Teams Folded Towel Machine Operator Relationship Specialty Start Date End Date Lynn Solis NP [address] [place] [address] PCP - General 05/28/14 09/15/21 documented as of this encounter
--- OUTSIDE RECORDS SUMMARY | 2024-02-03 13:16 | XMS_ITS | Encounter Summary ---
Author Organization [facility] Address [address] [place] [address] Care Team Providers Care Scrap Crane Operator Name Role Phone Lynn Solis CLINICAL PROFESSOR Primary Care Provider [phone] Lian aPrnell ASSISTANT STATISTICIAN Primary Care Provider [phone] Encounter Details Date Type Department Care Team (Late st Contact Info) Description 03/15/2020 Lab Requisition [facility] Pathology & [place] [address] Outr Resulting Lab, Provider Social History Tobacco [...] Procedure Name Priority Date/Time Associated Diagnosis Comments SUSCEPTIBILITY, AFB, SLOWLY GROWING Today 03/15/2020 13:44 EDT CULTURE REFERRED FOR ID, MYCOBACTERIUM Today 03/15/2020 13:44 EDT AFB CULTURE, OTHER Today 03/15/2020 13 :44 EDT documented in this encounter Results * (ABNORMAL) SUSCEPTIBILITY, AFB, SLOWLY GROWING (03/15/2020 13:44 EDT) Susceptibility, AFB, Slow Grower SEE NOTE(A) 05/14/2020 12:01 EST [facility] Comment: SOURCE: LYMPH NODE, Lymph Nodes, AFB, [facility], SLOWLY GROWING ?FINAL ??MYCOBACTERIUM AVIUM COMPLEX ?? There are no established interpretive guidelines for agents reported without interpretations. ?Organism ? MYCOBACTERIUM AVIUM COMPLEX ??Antibiotic ? BRISA (mcg/mL) ??Interpretation ?Moxifloxacin ?8 ? R ??Clarithromycin ?4 ? S ??Amikacin (IV) ?16 ? S ??Amikacin (liposomal, inhaled) ?16 ? S ??Streptomycin ? 32 ??Linezolid ?32 ? R ??Ethambutol ? 16 ??Rifampin ?8 ??Rifabutin ? 1 Moxifloxacin: The in vivo effectiveness of this agent for MAC disease is unproven. Clarithromycin: Clarithromycin is the class drug for macrolides and the only macrolide that needs to be tested. Linezolid: The in vivo effectiveness of this agent for MAC disease is unproven. ??S=SUSCEPTIBLE ??I=INTERMEDIATE ??R=RESISTANT ??NS=NONSUSCEPTIBLE ??SDD=SUSCEPTIBLE DOSE DEPENDENT This test was developed and its performance characteristics determined by [facility] in a manner consistent with CLIA requirements. This test has not been cleared or approved by the U.S. Food and Drug Administration. Test Performed by: [facility] - [address] [address] Top Taper Machine: Perez Amaya M.D. Ph.D.; CLIA# [id number] Other 03/15/2020 13:4 4 EDT 04/26/2020 12:34 EST Provider Outr Resulting Lab MICROBIOLOGY - GENERAL ORDERABLES Performing Organization Address [facility]/ZIP Co de Phone Number [address] [address] * (ABNORMAL) CULTURE REFERRED FOR ID, MYCOBACTERIUM (03/15/2020 13:44 EDT) Mycobacteria Culture Referred for ID SEE NOTE(A) 05/02/2020 14:15 EST [facility] Comment: SOURCE: LYMPH NODE, Lymph node, AFB, MTB has not been ruled out CULTURE REFER FOR ID, MYCOBACTERIUM ?FINAL ??MYCOBACTERIUM AVIUM COMPLEX ?? Test Performed by: [place] [id number] Top Taper Machine: Perez Amaya M.D. Ph.D.; CLIA# [id number] Organism (organism) 03/15/2020 13:44 EDT 04/26/2020 12:34 EST Provider Outr Resulting Lab MICROBIOLOGY - GENERAL ORDERABLES Performing Organization Address [facility] Co de Phone Number [facility] [address] [place] [address] * (ABNORMAL) AFB CULTURE, OTHER (03/15/2020 13:44 EDT) Organism ID Mycobacterium Avium Complex(A) 05/20/2020 12:05 EST [facility] Comment: Assayed by [facility], [place], [place]. See [id number] for susceptibilities. Tissue AXILLARY LYMPH NODE STRUCTURE / Unknown 03/15/2020 13:44 EDT 03/15/2020 22:56 EDT Provider Outr Resulting Lab MICROBIOLOGY - GENERAL ORDERABLES Performing Organization Address City/[facility]/ZIP Co de Phone Number [facility] [address] [place] [address] documented in this encounter Visit Diagnoses Not on filedocumented in this encounter Care Teams Scrap Crane Operator Relationship Specialty Start Date End Date Lynn Solis, CLINICAL PROFESSOR [address] [place] [address] PCP - General 05/28/14 09/15/21 Lian Parnell FNP [address] [place] [phone] PCP - General Family Medicine - Primary Care 09/16/21 CHARLENE URIOSTEGUI Pulmonary Disease 01/29/21 documented as of this encounter
--- OUTSIDE RECORDS SUMMARY | 2024-02-03 13:16 | XMS_ITS | Encounter Summary ---
Author Organization [facility] Address [address] [place] [address] Care Team Providers Care Wooden Box Maker Name Role Phone Lynn Solis NP Primary Care Provider [phone] Reason for Visit * Reason Onset Date Comments Appointment Related 03/21/2020 Encounter Details Date Type Department Care Team (Late st Contact Info) Description 03/21/2020 Telephone [facility] Adult Hematology & Oncology [address] [place] [phone] Jaxon Stephens MD [address] [place] [address] [address] [place] [phone] Appointment Related Social History Tobacco Use Types [...] * Telephone Encounter - Veronica Guzmán - 03/22/2020 1042 EDT Due to poor service, please call Hermelinda, patient girlfriend to give PET details to. [phone] * Telephone Encounter - Jaxon Stephens MD - 03/21/2020 8863 EDT New diagnosis of classic Hodgkin lymphoma with lymphocyte rich. Please call the patient and schedule for a PET scan, and labs next Wednesday here at [facility]. Santa Moon from [facility] will be in contact with the patient to get an echocardiogram at [facility] and a follow-up visit with me next Wednesday afternoon at 4:00. I have completed the orders for this Wednesday. 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
--- OUTSIDE RECORDS SUMMARY | 2024-02-03 13:16 | XMS_ITS | Encounter Summary ---
Author Organization [facility] Address [address] [place] [address] Care Team Providers Care Marsh Buggy Operator Name Role Phone IssarachellLynn Iris TIERNEY Primary Care Provider Reason for Referral * Radiology Services (Routine) - New Request Specialty Diagnoses / Procedures Referred By Mavis rhodes Referred To Contact Diagnoses Low back pain, unspecified back pain laterality, unspecified chronicity, unspecified whether sciatica present Procedures L SPINE 4 OR MORE VIEWS Marifer Costello PA-C [address] [place] [phone] Referral ID Status Reason Start Date Expiration Date V isits Requested Visits Authorized [id number] New Request 03/23/2019 1 1 Reason for Visit * Reason Onset Date Comments Back Pain 03/22/2019 Encounter Details Date Type Department Care Team (Late st Contact Info) Description 03/22/2019 Orders Only [facility] Sp[facility] [place] [address] [place] [address] Marifer Costello PA-C [address] [place] [phone] Low back pain, unspecified back pain laterality, unspecified chronicity, unspecified whether sciatica present (Primary Dx) Social History Tobacco Use Types [...] Procedure Name Priority Date/Time Associated Diagnosis Comments L SPINE 4 OR MORE VIEWS Routine 03/23/2019 14:02 EDT Low back pain, unspecified back pain laterality, unspecified chronicity, unspecified whether sciatica present documented in this encounter Results * L SPINE 4 OR MORE VIEWS (03/23/2019 14:02 EDT) Anatomical Region Laterality Modality Other 03/23/2019 14:0 2 EDT 03/24/2019 10:28 EDT Narrative 03/24/2019 10:28 EDT LUMBAR SPINE, 4 VIEWS HISTORY: Low back pain. TECHNIQUE: AP, lateral, flexion, extension views of the lumbar spine. COMPARISON: Lumbar spine radiographs 05/30/2014. Lumbar spine MRI 06/22/2014. FINDINGS: There is leftward curvature of the lower thoracic and upper lumbar spine. There is slight left superior pelvic tilt and pelvic rotation. There is slight kyphosis centered at L1. There is retrolisthesis of L1 on L2 and L2 on L3. The alignment is otherwise maintained. Sagittal alignment does not change significantly between flexion and extension. The L1 fracture deformity is unchanged compared to 2015. The remaining vertebral bodies demonstrate normal height. Multilevel discogenic degenerative changes are present with intervertebral disc height loss and bony proliferative changes. Lower lumbar facet arthropathy is present. Degenerative changes are present in the sacroiliac joints, hips, and pubic symphysis. A few scattered atherosclerotic calcifications are noted. IMPRESSION: Degenerative changes and malalignment without dynamic instability. Unchanged L1 fracture deformity; no new fractures demonstrated. Procedure Note Ulano, Beau, MD - 03/24/2019 LUMBAR SPINE, 4 VIEWS HISTORY: Low back pain. TECHNIQUE: AP, lateral, flexion, extension views of the lumbar spine. COMPARISON: Lumbar spine radiographs 05/30/2014. Lumbar spine MRI 06/22/2014. FINDINGS: There is leftward curvature of the lower thoracic and upper lumbar spine. There is slight left superior pelvic tilt and pelvic rotation. There is slight kyphosis centered at L1. There is retrolisthesis of L1 on L2 and L2 on L3. The alignment is otherwise maintained. Sagittal alignment does not change significantly between flexion and extension. The L1 fracture deformity is unchanged compared to 2015. The remaining vertebral bodies demonstrate normal height. Multilevel discogenic degenerative changes are present with intervertebral disc height loss and bony proliferative changes. Lower lumbar facet arthropathy is present. Degenerative changes are present in the sacroiliac joints, hips, and pubic symphysis. A few scattered atherosclerotic calcifications are noted. IMPRESSION: Degenerative changes and malalignment without dynamic instability. Unchanged L1 fracture deformity; no new fractures demonstrated. Marifer Costello PA-C [facility] documented in this encounter Visit Diagnoses Diagnosis Low back pain, unspecified back pain laterality, unspecified chronicity, unspecified whether sciatica present- Primary documented in this encounter Care Teams Marsh Buggy Operator Relationship Specialty Start Date End Date Lynn Solis NP [address] [place] [id number] PCP - General 05/28/14 09/15/21 documented as of this encounter
--- OUTSIDE RECORDS SUMMARY | 2024-02-03 13:16 | XMS_ITS | Encounter Summary ---
Author Organization [facility] Address [address] [place] [address] Care Team Providers Care Bait Painter Name Role Phone Lynn Solis CHIEF PAYROLL CLERK Primary Care Provider [phone] Lian Parnell CHANGE ATTENDANT Primary Care Provider [phone] Encounter Details Date Type Department Care Team (Late st Contact Info) Description 03/15/2020 Lab Requisition [facility] Pathology & Laboratory Medicine - [address] [address] Outr Resulting Lab, Provider Encounter for other general examination Social History Tobacco Use Types Packs/Day Years [...] Procedure Name Priority Date/Time Associated Diagnosis Comments LEUKEMIA/LYMPHOMA PANEL BY FLOW CYTOMETRY Today 03/15/2020 13:44 EDT documented in this encounter Results * LEUKEMIA/LYMPHOMA PANEL BY FLOW CYTOMETRY (03/15/2020 13:44 EDT) Final Immunophenotypic Interpretation Lymph node, left axillary, flow cytometric analysis: - No immunophenotypic evidence of a clonal cell population. See comment. 0 14:52 [facility] Comment The results of flow cytometry show no immunophenotypic evidence of involvement by a clonal lymphoproliferative disorder. Flow cytometry is not sensitive for the detection of large cell lymphoma or Hodgkin lymphoma. Correlation of these findings with morphologic and clinical data is essential; please refer to report [id number] for morphologic details. 0 14:52 [facility] Attestation There was significant resident/fellow involvement in the diagnostic evaluation of this case. By the signature below, the attending physician certifies that they have personally conducted a gross and/or microscopic examination of the described specimens and rendered or confirmed the above diagnosis. 0 14:52 [facility] at 1452 Clinical History Left axillary mass 0 14:52 [facility] Description The specimen consists of lymph node tissue from which a single cell suspension is prepared. Gating is performed using CD45 fluorescence and side scatter. Cellular viability (assessed by propidium iodide exclusion) is good (94%) among the CD45 positive events. A majority of the lymphoid cells are T-lymphocytes (CD2+CD3+CD5+CD7+) with CD4+ and CD8+ subsets represented. The remaining lymphocytes are B-lymphocytes (CD19+CD20+). Among the B-cells, both kappa+ and lambda+ subsets are represented. 0 14:52 [facility] Flow Markers CD2, CD3, CD4, CD5, CD7, CD8, CD10, CD11b, CD11c, CD14, CD16, CD19, CD20, CD22, CD23, CD38, CD45, CD56, CD57, FMC7, HLADR, Platte, and Lambda. 0 14:52 [facility] FDA Disclaimer This test was developed and its performance characteristics determined by the Department of Pathology and Laboratory Medicine, [facility], [place], [place]. It has not been cleared or approved by the U.S. Food and Drug Administration. FDA does not require this test to go through premarket FDA review. This test is used for clinical purposes. It should not be regarded as investigational or for research. This laboratory is certified under the Clinical Laboratory Improvement Amendments (CLIA) as qualified to perform high complexity clinical laboratory testing. 0 14:52 EDT [facility] Resident/Fellow: Lawrence Mayo MD 0 14:52 EDT [facility] Scanned Images 0 14:52 EDT [facility] ZZUNK STRUCTURE OF LYMPH NODE / Unknown 03/15/2020 13:44 EDT 03/16/2020 8:49 EDT Provider Outr Resulting Lab PATHOLOGY OR DERABLES Performing Organization Address [facility] Co de Phone Number [facility] [address] [place] [address] documented in this encounter Visit Diagnoses Diagnosis Encounter for other general examination documented in this encounter Care Teams Bait Painter Relationship Specialty Start Date End Date Lynn Solis NP [address] [place] [address] PCP - General 05/28/14 09/15/21 Lian Parnell FNP [address] [place] [address] PCP - General Family Medicine - Primary Care 09/16/21 CHARLENE URIOSTEGUI Pulmonary Disease 01/29/21 documented as of this encounter
--- OUTSIDE RECORDS SUMMARY | 2024-02-03 13:16 | XMS_ITS | Encounter Summary ---
Author Organization [facility] Address [address] [place] [address] Care Team Providers Care Marketing Operations Intern Name Role Phone IssarachellLynn Iris BIRD SITTER Primary Care Provider [phone] Reason for Visit * Reason Onset Date Comments Injections 07/17/2014 phone f/u Encounter Details Date Type Department Care Team (Late st Contact Info) Description 07/17/[address] [facility] Spine Program - [address] [place] [address] Marifer Costello PA-C [address] [place] [address] [place] [address] Injections (phone f/u) Social History Tobacco Use Types Packs/Day Years [...] encounter Miscellaneous Notes * Telephone Encounter - Julia Menchaca - 07/18/2014 0814 EST Called patient and informed of the following appointments: bone scan appt at [facility] in [place] on Wednesday07/30/14 checking in 3rd floor registration at 10:30 am, injection at 11, and bone scan at 1:45pm. F/u at [address] [facility] Wednesday08/06/14 at 11:15am. Provided appropriate numbers to reschedule if necessary. * Telephone Encounter - Julia Menchaca - 07/17/2014 1503 EST Patient called in reporting he felt 100% relief for only the first day post injections. After that he reports only 10-20% relief from facet injections. He is interested in Spect CT that was in Kenrick'splan if Kenrick wanted to proceed with it. Routing to Kenrick for review. documented in this encounter Plan of Treatment Not on file documented as of this encounter Visit Diagnoses Not on filedocumented in this encounter Care Teams Marketing Operations Intern Relationship Specialty Start Date End Date Lynn Solis NP [address] [place] [address] PCP - General 05/28/14 09/15/21 documented as of this encounter
--- OUTSIDE RECORDS SUMMARY | 2024-02-03 13:16 | XMS_ITS | Encounter Summary ---
Author Organization [facility] Address [address] [place] [address] Care Team Providers Care Wine Consultant Name Role Phone Lynn Solis Iris ON AIR HOST Primary Care Provider [phone] Reason for Visit * Reason Onset Date Comments Results 02/01/2015 Encounter Details Date Type Department Care Team (Late st Contact Info) Description 02/01/2015 Telephone [facility] Interventional Pain [address] [place], [place] [id number] Dani Tamayo MD [facility] [place] [phone] Results Social History Tobacco Use Types Packs/Day [...] Yes 01/31/2015 documented as of this encounter Miscellaneous Notes * Telephone Encounter - Julai Dobbins - 02/01/2015 1007 EDT Procedure end time: 10:00am Pain relief start time Returned to baseline pain Hours of relief Percentage of relief 0-100 (0 = no relief, 100 = total relief) 0% Pt stating no relief from injection. He said the injection site discomfort is getting better and less sore so basically back to same pain as before procedure. No relief. * Telephone Encounter - Jordon Lan RN - 02/01/2015 0913 EDT Post-MBB Pain Relief: Hours of relief: 0 Percentage relief: 0 Type of next appointment scheduled: F/u with Cesia Costello Plan:01/31/15 Proceed with diagnostic medial branch blocks at Lt L4, Rt L4, Lt L5, Rt L5, Lt Sacral Ala and Rt Sacral Ala Follow up: within 24 hrs by telephone to report results of diagnostic injection If positive diagnostics, schedule 2 appts for RFA If negative, then follow up with Jessa Costello RN called patient and line disconnected. Recalled patient and left a message to call back with painrelief from regular pain out procedure discomfort, need hours and % of relief and if truly no relief he needs to f/u with Cesia Costello per note. * Telephone Encounter - Marylou Pool - 02/01/2015 09 EDT Procedure end time:___100am Pain relief start time Returned to baseline pain Hours of relief Percentage of relief 0-100 (0 = no relief, 100 = total relief) ____no relief Pt had increase of pain the rest of the day into the night. Today pt is at base line pain level. documented in this encounter Plan of Treatment Not on file documented as of this encounter Visit Diagnoses Not on filedocumented in this encounter Care Teams Wine Consultant Relationship Specialty Start Date End Date Lynn Solis NP [address] [facility] [place] [address] PCP - General 05/28/14 09/15/21 documented as of this encounter
--- OUTSIDE RECORDS SUMMARY | 2024-02-03 13:16 | XMS_ITS | Encounter Summary ---
Author Organization [facility] Address [address] [place] [address] Care Team Providers Care Interventional Pain Physician Name Role Phone Lynn Solis SENIOR SSIS DEVELOPER Primary Care Provider [phone] Lian Parnell ACCOUNT SUPPORT ASSOCIATE Primary Care Provider [phone] Encounter Details Date Type Department Care Team (Late st Contact Info) Description 03/05/2020 Lab Requisition [facility] Pathology & [place] [address] Outr Resulting Lab, Provider Social History Tobacco [...] Date/Time Associated Diagnosis Comments VITAMIN B12 Routine 03/05/2020 12:08 EDT documented in this encounter Results * (ABNORMAL) VITAMIN B12 (03/05/2020 12:08 EDT) Vitamin B12 1,050(H) 211 - 911 pg/mL 03/05/2020 23:00 EDT [facility] Blood VENOUS BLOOD / Unknown 03/05/2020 12:08 EDT 03/05/2020 22:06 EDT Provider Outr Resulting Lab CHEMISTRY & BLOOD GAS ORDERABLES [facility] [address] [place] [address] documented in this encounter Visit Diagnoses Not on filedocumented in this encounter Care Teams Interventional Pain Physician Relationship Specialty Start Date End Date Lynn Solis SENIOR SSIS DEVELOPER [address] [place] [address] PCP - General 05/28/14 09/15/21 Lian Parnell FNP [address] [place] [phone] PCP - General Family Medicine - Primary Care 09/16/21 CHARLENE URIOSTEGUI Pulmonary Disease 01/29/21 documented as of this encounter
--- OUTSIDE RECORDS SUMMARY | 2024-02-03 13:16 | XMS_ITS | Encounter Summary ---
Author Organization [facility] Address [address] [place] [address] Care Team Providers Care Aniline Press Worker Name Role Phone Will Lynn Iris TIERNEY Primary Care Provider [phone] Reason for Referral * Consult (Routine) - Specialty Report Received Specialty Diagnoses / Procedures Referred By Mavis rhodes Referred To Contact Pain Medicine Diagnoses Low back pain radiating to both legs Marifer Costello PA-C [address] [place] [phone] [facility] [address] [place] [address] Referral ID Status Reason Start Date Expiration Date Visits Requested Visits Authorized [id number] Specialty Report Received Specialty Services Required 06/25/2014 1 1 Question Answer Reason for Request: Low back pain radiating to both legs Comments Recommend L4-L5/L5-S1 B/L facet injections Reason for Visit * Reason Comments Back Pain MRI f/u radiates to bilat legs Encounter Details Date Type Department Care Team (Late st Contact Info) Description 06/25/2014 9:[address] [facility] Spine Program - [address] [place] [address] Marifer Costello PA-C [address] [place] [address] Low back pain radiating to both legs (Primary Dx) Social History Tobacco Use Types [...] QOL 05/01/2013 documented as of this encounter Progress Notes * Julia Menchaca - 06/25/2014 1114 EST Patient given written and verbal patient education on injection * Marifer Costello PA - 06/25/2014 1000 EST Fran Justin Sr. is being seen as a consultation from Dr. Solis. Chief Complaint Patient presents with ??? Back Pain MRI f/u radiates to bilat legs The encounter diagnosis was Low back pain radiating to both legs. HPI Mr. Justin is a 49 y.o. pleasant male who returns to the clinic today, 06/25/2014, for FU post MRI (06/22/2013). The patient reports no significant improvement since his last visit. Mr. Justin presented to the clinic for the fist time in 05/30/2014, with 70% LBP and 30% B/L LE pain affecting the anterior aspects of his thighs, the anterior aspects of his lower leg with tingling inthe dorsal surface of his feet including the toes. The patient reports long standing h/o intermittent LBP that has become constant over the last year. LE symptoms started a couple of months ago and have been persisting since then. He has tried PT, which made him worse. He has not tried CHIRO or injections. Lying on his sides and mildly leaning forward alleviate his symptoms. Walking more than 100feet aggravates his symptoms the most. He rates his pain as 7/10. HPI Patient Active Problem List Diagnosis ??? Spells ??? Low back pain radiating to both legs Past Medical History Diagnosis Date ??? ETOH abuse ??? Seizures ??? GERD (gastroesophageal reflux disease) ??? Emphysema lung Past Surgical History Procedure Laterality Date ??? Hernia repair abd hernia repair ??? Tonsillectomy History Substance Use Topics ??? Smoking status: Current Every Day Smoker -- 1.00 packs/day for 45 years ??? Smokeless tobacco: Not on file ??? Alcohol Use: Yes Comment: 12-24 beers/day, but quit x 6 months ago No family history on file. Current Outpatient Prescriptions Medication Sig Dispense Refill ??? albuterol (PROVENTIL HFA, VENTOLIN HFA) 90 mcg/Actuation inhaler Inhale 2 Puffs as directed every 4 hours. ??? famotidine (PEPCID) 40 mg tablet Take 40 mg by mouth at bedtime. ??? gabapentin (NEURONTIN) 100 mg capsule Take 1 Cap by mouth 3 times daily. 90 Cap 2 ??? lamoTRIgine (LAMICTAL) 200 mg tablet Take 200 mg by mouth 2 times daily. ??? Omeprazole 20 mg tablet,delayed release (DR/EC) Take 20 mg by mouth daily. ??? pregabalin (LYRICA) 100 mg capsule Take 100 mg by mouth 3 times daily. ??? QUEtiapine (SEROQUEL) 100 mg tablet Take 100 mg by mouth 2 times daily . No current facility-administered medications for this visit. Allergies Allergen Reactions ??? No Known Drug Allergies Review of Systems Physical Exam Ortho Exam Neurologic Exam Today, 06/25/2014, I independently reviewed the following: MRI from prior work up in May 2014: T12-L1: There is mild global disc bulge which produces minimal mass effect on the ventral thecal sac but no impingement on the conus. L1-L2: There is global disc bulge which produces mild mass effect on the ventral thecal sac and mild narrowing of the lateral recesses bilaterally. There is mild bilateral neural foraminal narrowing present as well. L2-L3: There is global disc bulge with a small central disc herniation that produces mild mass effect on the ventral thecal sac. Disc bulge produces slight narrowing of the lateral recesses bilaterally and mild bilateral neural foraminal narrowing. L3-L4: There is mild facet hypertrophy without focal disc herniation or spinal stenosis identified. L4-L5: There is mild global disc bulge and mild facet hypertrophy without focal disc herniation. Slight narrowing of the neural foramina is demonstrated bilaterally. L5-S1: No disc herniation or spinal stenosis is noted Plain radiographs (AP/Lat/Flex/Ex): 1. Five (5) non-rib bearing lumbar vertebrae 2. There is a right convex curvature in lumbar spine with apex at thoracolumbar junction 3. Grade I retrolisthesis of L1 on L2 returning to anatomical position of Flex- Ex. Grade I retrolisthesis of L5 on S1 remaining unchanged on Flex-Ex 4. Facet arthropathy of the lower lumbar spine 5. Disc height reduction at L5-S1 conistent with degenerative disc disease 6. No fractures or pars defects noted Assessment 49 y.o. male with LBP most likely from degenerative disc and facet disease and B/L LE pain along the L4/L5 dermatomes; MRI not concordant with LE symptoms. LE pain could be referred pain. He has agreed to the following plan. Other Orders Placed This Visit Procedures ??? Amb Consult/Follow Up Pain Interventional Plan: 1. Order L4-L5/L5-S1 B/L facet injections 2. Continue activity as tolerated 3. Phone FU post facet injections 4. If no relief from facet injections, consider SPECT CT CC: Dr. Will Heath was the attending physician available in the clinic today if needed. A consultation was not required. documented in this encounter Plan of Treatment Scheduled Referrals Name Type Priority Associated Diagnoses Order Schedule AMB CONS/FOLLOW UP PAIN INTERVENTIONAL Outpatient Referral Routine Low back pain radiating to both legs Ordered: 06/25/2014 documented as of this encounter Visit Diagnoses Diagnosis Low back pain radiating to both legs- Primary Lumbago documented in this encounter Care Teams Aniline Press Worker Relationship Specialty Start Date End Date Lynn Solis, NIALL [address] [place] [address] PCP - General 05/28/14 09/15/21 documented as of this encounter
--- OUTSIDE RECORDS SUMMARY | 2024-02-03 13:16 | XMS_ITS | Encounter Summary ---
Author Organization [facility] Address [address] [place] [address] Care Team Providers Care Senior Quality Control Inspector Name Role Phone Will Lynn Iris TIERNEY Primary Care Provider [phone] Encounter Details Date Type Department Care Team (Latest Contact Info) Description 06/08/2019 15:00 EST - 06/09/2019 23:59 EST Hospital Encounter [facility] Xray [address] [place], [place] [id number] Discharge Disposition: Home or Self Care Social [...] 2 Puffs as directed every 4 hours. NAPROXEN ORAL Take by mouth daily. atomoxetine (STRATTERA) 40 mg capsule Take 40 mg by mouth daily 03/13/2020 famotidine (PEPCID) 40 mg tablet Take 40 mg by mouth at bedtime. 11/02/2022 gabapentin (NEURONTIN) 100 mg capsule Take 1 Cap by mouth 3 times daily. 90 Cap 2 05/30/2014 03/13/2020 lamoTRIgine (LAMICTAL) 200 mg tablet Take 100 mg by mouth 2 times daily. 01/09/2021 Omeprazole 20 mg tablet,delayed release (DR/EC) Take 20 mg by mouth daily. 04/27/2022 pregabalin (LYRICA) 100 mg capsule Take 100 mg by mouth 3 times daily. 03/13/2020 QUEtiapine (SEROQUEL) 100 mg tablet Take 100 mg by mouth 2 times daily . 03/13/2020 documented as of this encounter Discharge Disposition Disposition Code Departure Means Destination Home or Self Care documented in this encounter Plan of Treatment Not on file documented as of this encounter Procedures Procedure Name Priority Date/Time Associated Diagnosis Comments PAIN CLINIC FL LUMBAR INJECTION Routine 06/08/2019 15:46 EST documented in this encounter Results * PAIN CLINIC FL LUMBAR INJECTION (06/08/2019 15:46 EST) Narrative 06/08/2019 15:47 EST This is a non-reportable exam. John DEL VAL[facility] OTHER IMAGING OR DERABLES documented in this encounter Visit Diagnoses Not on filedocumented in this encounter Care Teams Senior Quality Control Inspector Relationship Specialty Start Date End Date Lynn Solis NP [address] [place] [address] PCP - General 05/28/14 09/15/21 documented as of this encounter
--- OUTSIDE RECORDS SUMMARY | 2024-02-03 13:16 | XMS_ITS | Encounter Summary ---
Author Organization [facility] Address [address] [place] [address] Care Team Providers Care Pigskin Trimmer Name Role Phone Lynn Solis PIPEFITTER Primary Care Provider [phone] Encounter Details Date Type Department Care Team (Late st Contact Info) Description 07/17/2014 Orders Only [facility] Spine Program - [address] [place] [address] Marifer Costello PA-C [address] [facility] [place] [address] Low back pain radiating to [...] QOL 05/01/2013 documented as of this encounter Plan of Treatment Not on file documented as of this encounter Visit Diagnoses Diagnosis Low back pain radiating to both legs- Primary Lumbago documented in this encounter Care Teams Pigskin Trimmer Relationship Specialty Start Date End Date Lynn Solis, PIPEFITTER [address] [place] [address] PCP - General 05/28/14 09/15/21 documented as of this encounter
--- OUTSIDE RECORDS SUMMARY | 2024-02-03 13:16 | XMS_ITS | Encounter Summary ---
Author Organization [facility] Address [address] [place] [address] Care Team Providers Care Lumber Marker Name Role Phone IssaalbaLynn brooks Iris BRUSH CUTTER Primary Care Provider [phone] Reason for Visit * Reason Onset Date Comments Appointment Related 08/15/2014 Encounter Details Date Type Department Care Team (Late st Contact Info) Description 08/15/2014 Telephone [facility] Spine Program - [address] [place] [address] Marifer Costello PA-C [address] [facility] [place] [address] Appointment Related Social History Tobacco [...] * Telephone Encounter - Julia Menchaca - 08/15/2014 1334 EDT Patient called stating that he had rescheduled and bone scan and it had been cancelled on him. In actually, we figured out that he had shown up at [facility] on the day of his scan when he should have been at that main campus. I gave him the phone number to reschedule and clarified that he needed to go [facility] in [place] for this procedure. He expressed understanding and will be [facility]. documented in this encounter Plan of Treatment Not on file documented as of this encounter Visit Diagnoses Not on filedocumented in this encounter Care Teams Lumber Marker Relationship Specialty Start Date End Date Lynn Solis, NIALL [address] [place] [address] PCP - General 05/28/14 09/15/21 documented as of this encounter
--- OUTSIDE RECORDS SUMMARY | 2024-02-03 13:16 | XMS_ITS | Encounter Summary ---
Author Organization [facility] Address [address] [place] [address] Care Team Providers Care Blueberry Grower Name Role Phone Lynn Solis ASSOCIATE JAVA DEVELOPER Primary Care Provider [phone] Lian Parnell ESTHETICIAN AND MANAGER MEDICAL SPA Primary Care Provider [phone] Encounter Details Date Type Department Care Team (Late st Contact Info) Description 03/15/2020 Lab Requisition [facility] Pathology & Laboratory Medicine - [facility] [address] [place] [address] Mc Brooks MD [address] [place] [id number] Encounter for other general examination Social History [...] Procedure Name Priority Date/Time Associated Diagnosis Comments SURGICAL PATHOLOGY Today 03/15/2020 13 :15 EDT Encounter for other general examination documented in this encounter Results * SURGICAL PATHOLOGY (03/15/2020 13:15 EDT) Final Diagnosis A. Lymph node, axillary, left, excisional biopsy: - Classic Hodgkin lymphoma, lymphocyte-rich subtype. See comment. 03/20/2020 15:[address] [facility] Diagnosis Comment Excisional biopsy shows a lymph node with effaced clary architecture and a vaguely nodular distribution of predominately small lymphocytes. Scattered amongst the small lymphocytes are large and occasionally binucleated cells with irregular nuclear contours, vesicular chromatin, and large prominent nucleoli, consistent with Hodgkin/Anthony-Forman brooks cells. By immunohistochemist ry, these cells are positive for CD15, CD30, and dimly positive for Osage-5, while they are negative for CD45, and CD20. This immunophenotype, taken together with the morphologic details, are diagnostic of classic Hodgkin lymphoma, lymphocyte-rich subtype. Concurrent flow cytometric analysis ([id number]) shows no immunophenotypic evidence of a clonal cell population. Immunoperoxidase stains were performed on this case to further characterize the lesion. ANTIBODY(CLONE)(BL OCK):RESULT CD45 (LCA) (X16/99, Leica) (A1): Negative in large cells of interest; diffusely positive in background small lymphocytes CD20 (L26, Utting) (A1): Negative in cells of interest; positive in background B-cells PAX-5 (1EW, Leica): Variable but predominantly weak nuclear positivity in large cells of interest CD3 (SP7, Thermo Scientific) (A1): Positive in background T-cells; shows T-cell cuffing around cells of interest CD15 (LeuM1) (MMA, Utting) (A1): Variable, but predominantly weak positivity in cells of interest CD30 (Zachery-H2, Utting) (A1): Positive in cells of interest NOTE: One or more of the reagents used in immunoperoxidase testing in this case may not have been cleared or approved by the U.S. Food and Drug Administration (FDA). The FDA has determined that such clearance or approval is not necessary. These tests are used for clinical purposes. They should not be regarded as investigational or for research. These reagents' performance characteristics have been determined by [facility] and/or by the referring laboratory. The positive and negative controls worked appropriately. If immunoperoxidase staining has been performed on alcohol fixed cytology specimens, which has not been fully validated, the assays should be interpreted with caution and correlated with clinical data. This laboratory is certified under the Clinical Laboratory Improvement Amendments of 1988 (CLIA-88) as qualified to perform high complexity clinical laboratory testing. 03/20/2020 15:33 [facility] Attestation There was significant resident/fellow involvement in the diagnostic evaluation of this case. By the signature below, the attending physician certifies that they have personally conducted a gross and/or microscopic examination of the described specimens and rendered or confirmed the above diagnosis. Kartik Garner MD 03/20/2020 15:33 [facility] at 1533 Clinical History Lt axillary mass 03/20/2020 15:33 [facility] Gross Description A. Received fresh labelled with proper patient identification (initials W, R) and left axillary lymph node is a single lymph node (4.5 x 4.2 x 1.3 cm). The node is serially sectioned and a scrape preparation is performed for informational purposes. Bonding Molder tissue is placed in RPMI for flow cytometry. Touch imprints are performed for hematopathology. Bonding Molder tissue is submitted for cytogenetics. Less than 50% of the specimen is submitted in A1-A3. MADELAINE CALDWELL(ASCP) 03/18/2020 9:58 03/20/2020 15:33 [facility] Resident/Stevie w: Luis Justice MD 03/20/2020 15:33 [facility] Performing Lab [facility] 15:33 [facility] Scanned Images 03/20/2020 15:33 [facility] Tissue AXILLARY LYMPH NODE STRUCTURE / Unknown 03/15/2020 13:15 EDT 03/15/2020 22:18 EDT Mc Brooks MD PATHOLOGY ORDER [facility]ADYN [facility] [address] [place] [address] documented in this encounter Visit Diagnoses Diagnosis Encounter for other general examination documented in this encounter Care Teams Blueberry Grower Relationship Specialty Start Date End Date Lynn Slois, ASSOCIATE JAVA DEVELOPER [address] [place] [address] PCP - General 05/28/14 09/15/21 Lian Parnell FNP [address] [place] [id number] PCP - General Family Medicine - Primary Care 09/16/21 CHARLENE URIOSTEGUI Pulmonary Disease 01/29/21 documented as of this encounter
--- OUTSIDE RECORDS SUMMARY | 2024-02-03 13:16 | XMS_ITS | Encounter Summary ---
Author Organization [facility] Address [address] [place] [address] Care Team Providers Care Agricultural Specialist Name Role Phone Lynn Solis Iris FUEL OPERATOR Primary Care Provider [phone] Reason for Visit * Reason Onset Date Comments Appointment Related 07/17/2014 Encounter Details Date Type Department Care Team (Late st Contact Info) Description 07/17/2014 Telephone [facility] Spine Program - [address] [place] [address] Marifer Costello PA-C [address] [facility] [place] [address] Appointment Related Social History Tobacco [...] Telephone Encounter - Julia Menchaca - 07/17/2014 1552 EST Consulted with Kenrick regarding next steps for patient and he ordered SPECT; called patient and he agreed to this plan. I will call him with data nd time when scheduled. documented in this encounter Plan of Treatment Not on file documented as of this encounter Visit Diagnoses Not on filedocumented in this encounter Care Teams Agricultural Specialist Relationship Specialty Start Date End Date Lynn Solis, NIALL [address] [place] [address] PCP - General 05/28/14 09/15/21 documented as of this encounter
--- OUTSIDE RECORDS SUMMARY | 2024-02-03 13:16 | XMS_ITS | Encounter Summary ---
Author Organization [facility] Address [address] [place] [address] Care Team Providers Care Hourly Sign Language Interpreter Name Role Phone WillyLnn Iris TIERNEY Primary Care Provider [phone] Reason for Visit * Reason Comments Back Pain * Referral (Routine/Next Available) - Specialty Report Received Specialty Diagnoses / Procedures Referred By Mavis rhodes Referred To Contact Pain Medicine Diagnoses Low back pain radiating to both legs Marifer Costello PA-C [address] [facility] [place] [address] [facility] [address] [place] [address] Referral ID Status Reason Start Date Expiration Date Visits Requested Visits Authorized [id number] Specialty Report Received Specialty Services Required 9 1 1 Encounter Details Date Type Department Care Team (Latest Contact Info) Description 06/08/2019 15:00 EST Procedure visit [facility] Interventional Pain [address] [facility] [place] [address] John Bucio, DO [address] [facility] [address] [place] [address] Lumbar spondylosis (Primary Dx); Facet arthropathy, lumbar Social History Tobacco Use Types Packs/Day Years [...] Sign Reading Time Taken Comments Blood Pressure 146/75 06/08/2019 1525 EST Pulse 82 06/08/2019 1525 EST Temperature 36.3 ??C (97.4 ??F) 06/08/2019 1459 EST Respiratory Rate - - Oxygen Saturation - - Inhaled Oxygen Concentration - - Weight - - Height - - Body Mass Index - - documented in this encounter Functional Status Functional [...] Yes 03/23/2019 documented as of this encounter Patient Instructions * Patient Instructions* Brianna Houser RN - 06/08/2019 15:00 EST [facility] [address] [address] Patient Instructions You have had your bilateral lumbosacral Facet Steroid Injection. The purpose of this procedure has been to place medication which may help relieve your pain. Steroid may be used to decrease the swelling and nerve irritation which may be causing your pain. The following information should help you over the next few days regarding what you may expect. ??? Please take it easy for the rest of today. ??? DO NOT drive a car for the remainder of the day. ??? If you feel sore where the needle(s) entered for the block or develop a flare-up of pain over the next few days, please use ice on the area. You may leave the ice on for up to 20 minutes at a time. Do not use heat, as this may cause swelling. ??? As long as your primary doctor has indicated no restrictions, you may take a mild pain medicine, such as acetaminophen (Tylenol), ibuprofen (Advil, Nuprin, Motrin IB, etc.) or aspirin, if needed. ??? The steroid injection usually takes a few days to become effective. On average, you may notice some relief in 3 -5 days. However, it may take up to 10 - 14 days to know whether the injection was helpful. ??? If the block causes numbness/weakness, it should wear off within a few hours. ??? If the area that the needle(s) were inserted becomes hot, red, swollen, or increasingly tender,or if you develop a fever (100.5 or greater) or chills along with these symptoms, please call our office immediately. ??? If you develop increasingly severe back pain, continued numbness or weakness of the legs or changes in your bladder or bowel functions, please call our office immediately. Instructions for follow-up If you have any questions about your block, please call Patient Education Topic: Method: Handout and Verbal Taught to: Patient Barriers: None Outcomes: independent and verbalized understanding BRIANNA HOUSER RN documented in this encounter Progress Notes * Jane Velasco MA - 06/08/2019 1500 EST [facility] Rooming Note Does patient have a Tanker Truck Driver? Yes Is patient NPO? (Solids since midnight & liquids for 4 hrs) N/a Blood Thinners: Is patient on Blood Thinners? No If yes, taking? If stopped, who authorized stopping? Related comments: Infections: Any recent infections, fever of illnesses? No If on antibiotics, is it 7-10 days past the date of completion of antibiotics? : (for females of child-bearing age) Is there a chance current ? Do you have any type of implanted device? No Other: * Lelo Milner DO - 06/08/2019 1500 EST Patient Name: Fran Justin Sr. : 1965 Date of Service: 06/08/2019 Requesting provider: Marifer Costello Cafeteria Monitor: John Bucio DO Hypercil Core Transformer Assembler: Lelo Milner DO Procedure: Therapeutic lumbar facet joint injections at L4-L5 and L5-S1 bilateral Interval History: Patient presents at the request of Marifer Costello for continued evaluation and treatment recommendations of the patient's mid- back and low back pain. Details of the current complaint are thoroughly described in the consultation notes from Marifer Costello's last encounter including pain onset, location, course, workup, therapeutic attempts, and associated functional limitations. The patient reports no recent changes in the character, quality, or distribution of the pain. There are norecent onset of new associated symptoms such as changes in strength, sensation, or bladder control.All previous medical records including current medications, anticoagulation status, any signs of current infection, and new imaging were reviewed. Patient currently denies any progressive weakness, un explained fever, trauma or unexplained weight loss. Injection History: 06/08/2019: lumbar facet joint injection at L4-L5 and L5-S1 bilateral Current Outpatient Medications on File Prior to Visit Medication Sig Dispense Refill ??? albuterol (PROVENTIL HFA, VENTOLIN HFA) 90 mcg/Actuation inhaler Inhale 2 Puffs as directed every 4 hours. ??? atomoxetine (STRATTERA) 40 mg capsule Take 40 mg by mouth daily ??? famotidine (PEPCID) 40 mg tablet Take 40 mg by mouth at bedtime. ??? gabapentin (NEURONTIN) 100 mg capsule Take 1 Cap by mouth 3 times daily. (Patient not taking: Reported on 03/23/2019) 90 Cap 2 ??? lamoTRIgine (LAMICTAL) 200 mg tablet Take 200 mg by mouth 2 times daily. ??? NAPROXEN ORAL Take by mouth daily ??? Omeprazole 20 mg tablet,delayed release (DR/EC) Take 20 mg by mouth daily. ??? pregabalin (LYRICA) 100 mg capsule Take 100 mg by mouth 3 times daily. ??? QUEtiapine (SEROQUEL) 100 mg tablet Take 100 mg by mouth 2 times daily . No current facility-administered medications on file prior to visit. Allergies: Allergies Allergen Reactions ??? Wellbutrin [Bupropion Hcl] Seizures per patient Review of Systems: Negative for any fever, chills, nausea/vomiting, headaches, chest pain, palpitations, shortness of breath, bladder/bowel incontinence. No easy bruising, bleeding, anti-coagulation or known recent infections. Physical Exam: Vitals: BP 128/64 Pulse 76 Temp 36.3 ??C (97.4 ??F) (Tympanic) General: Patient is alert and oriented, no acute distress Lungs: symmetric chest rise, no evidence of labored breathing Skin: clear, warm, dry and intact and no rashes, bruises or petechiae noted Musculoskeletal: Gait: patient ambulates independently, steady gait,no obvious scoliosis or abnormal curvature of the spine Assessment: 1. Lumbar spondylosis 2. Facet arthropathy, lumbar Plan: Mr. Fran Justin Sr. is a 54 y.o. male that presents to the pain clinic to undergo lumbar facet injections in regards to his chronic back pain. All risks, benefits, and alternatives were thoroughlyexplained to Mr. Fran Justin Sr. who verbally communicated understanding of the management plan. Proceed with therapeutic facet joint injections at bilateral L4-L5 and L5-S1 Follow up: in 3 month(s) for lumbar facet injection(s) The patient plans to follow-up with 6 weeks to evaluate the relief of his pain, concerned that he may have pain higher up in his back Procedure: The patient gave informed written consent to proceed with this procedure following a detailed discussion of the risks and benefits associated with lumbar facet joint injection including but not limited to infection, bleeding, intrathecal injection, allergic reaction, further exacerbation of current symptoms, neurological injury, and lack of efficacy.. The patient was then placed in the prone position, the skin over the lumbosacral area was prepped with chlorhexadine, and the site was marked anddraped with sterile towels. Strict sterile technique was maintained throughout the procedure. A time out was performed with full staff present to identify the patient, verify the procedure being performed, and review allergies. Flouroscopy was used to identify the lumbar anatomy and align the facet joints. The skin and subcutaneous tissue over the bilateral L4-L5 and L5-S1 facet joints was anesthetized with 2% lidocaine. A 22 guage 3.5 inch spinal needle was inserted under fluoroscopic guidance using coaxial technique into each of the aforementioned facet joints. After negative aspiration, each joint was injected with 0.5 mls 0.5% Bupivacaine and 20 mg Depo-Medrol. There were no paresthesias during needle placement and aspiration was negative at all times. The patient tolerated the procedure well, there were no apparent complications, and he was discharged in stable condition. Written and verbal discharge instructions were reviewed with the patient prior to discharge. Initial and Post procedure pain report: Pain Score (from Vitals) 06/08/2019 06/08/2019 Initial score 7 - Final score - 7 Location - BACK Comment - - Lelo Milner DO Pain Fellow Attending attestation: I saw and examined the patient with (pain fellow) Dr. Maria Del Carmen Milner. I agree with the findings and plan of care documented in her note. In addition, I was present and participated during the entire procedure. John Bucio III, DO 06/08/2019 * Brianna Houser RN - 06/08/2019 1500 EST ATTENTION: This Checklist should be reviewed with the patient, provider, nurse/MA, and remanufacturing technician in the room prior to local anesthetic administration. Site marking is to be done prior to patient being put in to position, preferably when initial exam is done. Sterile field, meds, abd flouro images should be prepared prior to the FINAL VERIFICATION/TIME-OUT. All activity in the room will cease so all team members participate in the surgical brief and have meaningful communication. The Attending is responsible for leading the final verification/peter moment process. The Nurse/MA will have in her possession the signed consent and the checklist when the surgical pause is performed so written and verbal verification are concluded to be in agreement. [Verified] Patient identifier #1: Full Name [Verified] Patient Identifier #2: Date of [Verified] Allergy to iodine, steroids, local anesthetics, band-aids? [Verified] Location of pain: Patient response: Left vs Right; cervical, thoracic, lumbar, etc. (verified written on consent) [Verified] Site marked [Verified] Safety devices in place: Grounding pad; X-rays available. [Verified] Consent signed in chart documented in this encounter Plan of Treatment Not on file documented as of this encounter Visit Diagnoses Diagnosis Lumbar spondylosis- Primary Lumbosacral spondylosis without myelopathy Facet arthropathy, lumbar Lumbosacral spondylosis without myelopathy documented in this encounter Administered Medications Inactive Administered Medications - up to 3 most recent administrations Medication Order MAR Action Action Date Dose Rate Site bupivacaine (PF) (MARCAINE) 0.5% injection 2 mL 2 mL, intra-articular, NOW X1, 1 dose, On Kamila 06/08/19 at 1545, Routine Given by Other 06/08/2019 15:18 EST 2 mL methylPREDNISolone ACETATE (DEPO-MEDROL) injection 80 mg 80 mg, intra-articular, NOW X1, 1 dose, On Kamila 06/08/19 at 1545, Routine Given by Other 06/08/2019 15:18 EST 80 mg documented in this encounter Care Teams Hourly Sign Language Interpreter Relationship Specialty Start Date End Date Lynn Solis, LATEX RIBBON MACHINE OPERATOR [address] [place] [address] PCP - General 05/28/14 09/15/21 documented as of this encounter
--- OUTSIDE RECORDS SUMMARY | 2024-02-03 13:16 | XMS_ITS | Encounter Summary ---
Author Organization [facility] Address [address] [place] [address] Care Team Providers Care Windshield Installer Name Role Phone IssarachellLynn Iris TIERNEY Primary Care Provider [phone] Encounter Details Date Type Department Care Team (Late st Contact Info) Description 08/20/2014 8:19 EDT - 08/20/2014 23:59 EDT Hospital Encounter [address] [id number] Marifer Costello PA-C [address] [place] [address] Discharge Disposition: Auto Discharge Social History Tobacco Use Types Packs/Day Years [...] as of this encounter Discharge Diagnoses Diagnosis 724.2 LUMBAGO[ICD-9-CM] 724.4 LUMBOSACRAL NEURITIS NOS[ICD-9-CM] documented in this encounter Medications at Time of Discharge Medication Sig Dispensed Refills Start Date End Date albuterol (PROVENTIL HFA, VENTOLIN HFA) 90 mcg/Actuation inhaler Inhale 2 Puffs as directed every 4 hours. famotidine (PEPCID) 40 mg tablet Take 40 [...] Discharge Disposition Disposition Code Departure Means Destination Auto Discharge Home documented in this encounter Plan of Treatment Not on file documented as of this encounter Procedures Procedure Name Priority Date/Time Associated Diagnosis Comments NM BONE SPECT 08/20/2014 12:22 EDT documented in this encounter Results * NM BONE SPECT (08/20/2014 12:22 EDT) Anatomical Region Laterality Modality Other 08/20/2014 12:2 2 EDT 08/21/2014 17:31 EDT Narrative 08/21/2014 17:31 EDT NM BONE SPECT ??08/20/2014 12:22 PM Signs and Symptoms/Comments: ?? 724.9-Icmbovk-CYT-9-CM; Low back pain radiating to both legs. Technique: Fdz-lmp-otq-half hours after the IV injection of 19 ??mCi Tc-99m MDP, planar and SPECT/CT images were obtained of lumbar spine. Comparison: Radiographs May 30, 2014 and MRI June 22, 2014. Findings: Multiple small Schmorl's nodes and endplate irregularities are identified within the visualized portion of the lower thoracic spine. There is exaggerated thoracic kyphosis at the visualized portion of the lower thoracic spine. There is decrease in vertebral body height of T12 vertebra anteriorly by approximately 30% as compared to the posterior vertebral body height of 50% at the L1 vertebra. No abnormal, associated increased bone tracer uptake is identified in this area. The distribution of the bone tracer through the lumbar spine and the visualized portion of the sacral spine is normal. Incidental CT Findings: There is some atherosclerotic disease. There is a small accessory spleen at the anterior-inferior aspect of the spleen. Small calcifications and stranding are seen adjacent to the inferior pole of the spleen, likely posttraumatic. Impression: Increased thoracic kyphosis at the lower thoracic segment with anterior wedging of the L1 and T12 vertebrae either related to childhood spinal osteochondrosis or prior remote compression fractures. No abnormal foci of increased bone tracer uptake identified in the lumbar spine as well as the visualized portion of the thoracic and sacral spine. Procedure Note Kenan Bah MD - 08/21/2014 NM BONE SPECT 08/20/2014 12:22 PM Signs and Symptoms/Comments: 724.5-Ovcxyxh-MRX-9-CM; Low back pain radiating to both legs. Technique: Xig-frm-amb-half hours after the IV injection of 19 mCi Tc-99m MDP, planar and SPECT/CT images were obtained of lumbar spine. Comparison: Radiographs May 30, 2014 and MRI June 22, 2014. Findings: Multiple small Schmorl's nodes and endplate irregularities are identified within the visualized portion of the lower thoracic spine. There is exaggerated thoracic kyphosis at the visualized portion of the lower thoracic spine. There is decrease in vertebral body height of T12 vertebra anteriorly by approximately 30% as compared to the posterior vertebral body height of 50% at the L1 vertebra. No abnormal, associated increased bone tracer uptake is identified in this area. The distribution of the bone tracer through the lumbar spine and the visualized portion of the sacral spine is normal. Incidental CT Findings: There is some atherosclerotic disease. There is a small accessory spleen at the anterior-inferior aspect of the spleen. Small calcifications and stranding are seen adjacent to the inferior pole of the spleen, likely posttraumatic. Impression: Increased thoracic kyphosis at the lower thoracic segment with anterior wedging of the L1 and T12 vertebrae either related to childhood spinal osteochondrosis or prior remote compression fractures. No abnormal foci of increased bone tracer uptake identified in the lumbar spine as well as the visualized portion of the thoracic and sacral spine. Marifer KLINE NM ORDERAB LES documented in this encounter Visit Diagnoses Not on filedocumented in this encounter Care Teams Windshield Installer Relationship Specialty Start Date End Date Lynn Solis, NEWSPAPER PEDDLER [address] [place] [address] PCP - General 05/28/14 09/15/21 documented as of this encounter
--- OUTSIDE RECORDS SUMMARY | 2024-02-03 13:16 | XMS_ITS | Encounter Summary ---
Author Organization [facility] Address [address] [place] [address] Care Team Providers Care Amusement Park Worker Name Role Phone Lynn Solis Iris ARTIFICIAL BREEDING DISTRIBUTOR Primary Care Provider [phone] Reason for Visit * Reason Onset Date Comments Medication Management 11/13/2014 Encounter Details Date Type Department Care Team (Late st Contact Info) Description 11/13/2014 Telephone [facility] Spine Program - [address] [place] [address] Marifer Costello PA-C [address] [place] [address] Medication Management Social History Tobacco Use Types Packs/Day Years [...] * Telephone Encounter - Julia Menchaca - 11/13/2014 1614 EDT Patient called in regarding pain medication. He states his pain has gotten worse in his low back. He denies incontinence of bowel or bladder. I let him know we do not prescribe pain medication. He stated he reached out to a nurse at his PCP office and they didn't want to prescribe so as to not step on [place]' toes. I let the patient know that we don't prescribe pain meds, and we defer this to PCP. He stated his PCP office was calling him back and he would state this. documented in this encounter Plan of Treatment Not on file documented as of this encounter Visit Diagnoses Not on filedocumented in this encounter Care Teams Amusement Park Worker Relationship Specialty Start Date End Date Lynn Solis, ARTIFICIAL BREEDING DISTRIBUTOR [address] [place] [address] PCP - General 05/28/14 09/15/21 documented as of this encounter
--- OUTSIDE RECORDS SUMMARY | 2024-02-03 13:16 | XMS_ITS | Encounter Summary ---
Author Organization [facility] Address [address] [place] [address] Care Team Providers Care It Support Technician Name Role Phone Will Lynnrachel Simmons NP Primary Care Provider [phone] Reason for Visit * Reason Comments Follow-up Encounter Details Date Type Department Care Team (Latest Contact Info) Description 03/13/2020 9:00 EDT Office Visit [facility] Adult Hematology & Oncology [address] [place] [id number] Jaxon Stephens MD [address] [place] [address] [address] [place] [address] Lymphadenopathy (Primary Dx) Social History [...] Sign Reading Time Taken Comments Blood Pressure 122/79 03/13/2020 1517 EDT Pulse 67 03/13/2020 1517 EDT Temperature 36.6 ??C (97.9 ??F) 03/13/2020 1517 EDT Respiratory Rate 20 03/13/2020 1517 EDT Oxygen Saturation 98% 03/13/2020 1517 EDT Inhaled Oxygen Concentration - - Weight 59 kg (130 lb 1.1 oz) 03/13/2020 1517 EDT Height - - Body Mass Index 22.33 11/23/2019 0829 EDT documented in this encounter [...] Progress Notes * Jaxon Stephens MD - 03/13/2020 0900 EDT Hem/Onc. New Patient Note Fran Justin Sr. :1965 Age:54 y.o. Gender:male Date of Service:03/13/2020 History of present illness: 1- Left axillary [...] to Dr. Brooks for an excisional biopsy. 2: Complains of right upper quadrant abdominal pain. Physical exam ventral hernia, pending ultrasound 3: History of tobacco abuse. -12/29/2018 CT chest [place]. No malignancy. Left axilla showing a 1.3 cm lymph node shortness axis. - 11/22/2019 2 pack/day for 46 years for total of 42 pack to pack year history. Followed by Dr Donta hernandez in [place]. -Scheduled for a yearly screening CT chest in December. -01/24/2020 CT CLD: Stable 6 mm left lower lobe nodule. Diffuse mild centrilobular emphysema. Enlarged morphologically abnormal left axillary lymph node noted short axis I 0.9 cm. Pathologic lymph node is not excluded. History: Mr. Justin comes in for follow-up. For evaluation of left axillary node. He is noted over the last few weeks that he has had night sweats sometimes drenching. No fevers no weight loss however he is fairly thin. States the posterior axilla adenopathy has resolved, has not been able to feel the subpectoral node. Denies pain or edema of the upper extremity. For the last couple weeks has had some discomfort in the right upper quadrant with associated to meals, nausea vomiting diarrhea constipation. ROS: Review of Systems Constitutional: Negative for chills, fever and weight loss. States the left axillary node he did previously feel that completely regressed. HENT: Negative for hearing loss and sore throat. Eyes: Negative. Respiratory: Positive for cough (Chronic cough nonproductive secondary to tobacco abuse.), shortness of breath and wheezing. Negative for hemoptysis. Diagnosed with COPD followed by Dr. Mcneil pulmonary at [facility]. Had a CT of the chest December 2018 scheduled for follow-up in December 2019. Cardiovascular: Negative for chest pain, palpitations and leg swelling. Gastrointestinal: Negative for abdominal pain, blood in stool, melena, nausea and vomiting. Right upper quadrant abdominal pain not related to meals. Denies jaundice. Genitourinary: Negative for dysuria and hematuria. Musculoskeletal: Positive for back pain (Mild back pain for many years without any changes recently.). Skin: Negative for rash. Neurological: Negative for weakness and headaches. Endo/Heme/Allergies: Does not bruise/bleed easily. Psychiatric/Behavioral: History of depression and anxiety fairly well controlled. Vital Signs: Patient Vitals for the past 24 hrs: BP Temp Pulse Resp SpO2 Weight 03/13/20 1517 122/79 36.6 ??C (97.9 ??F) 67 20 98 % 59 kg (130 lb 1.1 oz) Wt Readings from Last 3 Encounters: 03/13/20 59 kg (130 lb 1.1 oz) 11/23/19 63.9 kg (140 lb 14 oz) 03/23/19 65.8 kg (145 lb) Ht Readings from Last 1 Encounters: 11/23/19 162.6 cm (64) Estimated body surface area is 1.63 meters squared as calculated from the following: Height as of 11/23/19: 162.6 cm (64). Weight as of this encounter: 59 kg (130 lb 1.1 oz). Physical exam: ECOG Performance Status: 0 Physical Exam Constitutional: General: He is not in acute distress. HENT: Head: Normocephalic. Eyes: General: No scleral icterus. Conjunctiva/sclera: Conjunctivae normal. Neck: Musculoskeletal: Normal range of motion and neck supple. Thyroid: No thyromegaly. Vascular: No JVD. Cardiovascular: Rate and Rhythm: Normal rate and regular rhythm. Pulmonary: Effort: Pulmonary effort is normal. No respiratory distress. Breath sounds: No stridor. Wheezing and rales present. Chest: Chest wall: No tenderness. Abdominal: General: Bowel sounds are normal. Palpations: Abdomen is soft. There is no mass. Comments: Very small ventral hernia reducible, the defect is tender to palpate. Musculoskeletal: Normal range of motion. General: No deformity. Lymphadenopathy: Cervical: No cervical adenopathy. Upper Body: Right upper body: No supraclavicular, axillary, pectoral or epitrochlear adenopathy. Left upper body: Pectoral adenopathy (Left pectoral adenopathy 3 x 2 cm, second node measuring 1.5 cm. ) present. No supraclavicular, axillary or epitrochlear adenopathy. Lower Body: No right inguinal adenopathy. No left inguinal adenopathy. Skin: General: Skin is warm and dry. Neurological: Mental Status: He is oriented to person, place, and time. Cranial Nerves: No cranial nerve deficit. PMHx: Past Medical History: Diagnosis Date ??? [...] Data Review: Labs: Imagin10/31/2019: Ultrasound of the [facility]. Left axillary lymph node measuring 3.2 x 3 cm with a vascular hilum appears stable in size compared to previous CT scan from December 2018, however that was slightly enlarged compared to CT scan from 2012. . Other smaller normal-sized lymph nodes were also noted on both axilla. No enlarged lymph node seen on the right axilla. 12/2019 CT chest low-dose noncontrast. Persistent left axillary adenopathy measuring 1.9 cm in the short axis. Assessment: 1. Left axillary adenopathy: First noted on CT scan of the chest in 2012, repeat CT of the chest (screening for tobacco abuse on December 2018) showed the lymph node was slightly larger, U/S of this axillary node October 2019 shows it had not changed in size compared to previous year, measuring 3.2 x [address] chest December 2019 shows this node has increased in size compared to a year ago CT 01/2019. On physical exam he has a 3 x 2 cm left subpectoral node and a second 1.5 cm node. In addition he is complaining of night sweats sometimes drenching over the last 2 months. Differential diagnosis low-grade lymphoma possible transformation to a more aggressive form due to the recurrent night sweats.. Reactive node less likely due to the chronicity. I asked Dr. King for his opinion, he feels well currently scheduled for an excisional biopsy on Wednesday. We will follow-up by phone as results come in. 2. Complain of right upper quadrant abdominal pain on exam he has a small ventral hernia which may or may not be the cause. Mild discomfort when palpating the liver. Obtain ultrasound for further evaluation. 2. COPD Diagnosed with COPD followed by Dr. Mcneil pulmonary at [facility]. Had a CT of thechest December 2018 scheduled for follow-up in December 2019. 3. Tobacco abuse upwards of 2 packs/day since age 8 no radiographic evidence of pulmonary cancer, encouraged him to seek help and try 1 of the smoke cessation programs available through the [facility], we have a program at [facility] that is funded by the [facility] and free for him if he wishes to pursue it. 4. Family history on the mother side multiple cancers but they were all smokers, appears to have several different cancers which he cannot define. From his father's side mostly people from cardiac events. Plan: 1. Referral to Dr. Brooks for excisional biopsy. [place] [facility] Cecilia Dominguez [facility]. Justin TIERNEY. Dr Shelley Stephens MD [facility] documented in this encounter Plan of Treatment Not on file documented as of this encounter Visit Diagnoses Diagnosis Lymphadenopathy- Primary Enlargement of lymph nodes documented in this encounter Discontinued Medications Medication Sig Discontinue Reason Start Date End Da te gabapentin (NEURONTIN) 100 mg capsule Take 1 Cap by mouth 3 times daily. 05/30/2014 03/13/2020 QUEtiapine (SEROQUEL) 100 mg tablet Take 100 mg by mouth 2 times daily . 03/13/2020 pregabalin (LYRICA) 100 mg capsule Take 100 mg by mouth 3 times daily. 03/13/2020 atomoxetine (STRATTERA) 40 mg capsule Take 40 mg by mouth daily 03/13/2020 documented as of this encounter Care Teams It Support Technician Relationship Specialty Start Date End Date Lynn Solis NP [address] [place] [address] PCP - General 05/28/14 09/15/21 documented as of this encounter
--- OUTSIDE RECORDS SUMMARY | 2024-02-03 13:16 | XMS_ITS | Encounter Summary ---
Author Organization [facility] Address [address] [place] [address] Care Team Providers Care Military Technology Manager Name Role Phone Lynn Solis BATTERY VENT PLUG INSERTER Primary Care Provider [phone] Lian Parnell SPREADER OPERATOR AUTOMATIC Primary Care Provider [phone] Encounter Details Date Type Department Care Team (Late st Contact Info) Description 03/15/2020 Lab Requisition [facility] Pathology & [place] [address] Outr Resulting Lab, Provider Social History Tobacco [...] Name Priority Date/Time Associated Diagnosis Comments ANAEROBE CULTURE/SMEAR(INC. AEROBES), OTHER Routine 03/15/2020 13:44 EDT documented in this encounter Results * ANAEROBE CULTURE/SMEAR(INC. AEROBES), OTHER (03/15/2020 13:44 EDT) Organism ID No Growth 03/20/2020 11:02 EDT [facility] Smear No Neutrophils Seen 03/20/2020 11:02 EDT [facility] Smear No bacteria seen 03/20/2020 11:02 EDT [facility] Tissue AXILLARY LYMPH NODE STRUCTURE / Unknown 03/15/2020 13:44 EDT 03/15/2020 22:57 EDT Provider Outr Resulting Lab MICROBIOLOGY - GENERAL ORDERABLES Performing Organization Address City/State/[facility] Co de Phone Number [facility] [address] [place] [address] documented in this encounter Visit Diagnoses Not on filedocumented in this encounter Care Teams Military Technology Manager Relationship Specialty Start Date End Date Lynn Solis, BATTERY VENT PLUG INSERTER [address] [place] [address] PCP - General 05/28/14 09/15/21 Lian Parnell FNP [address] [place] [phone] PCP - General Family Medicine - Primary Care 09/16/21 CHARLENE URIOSTEGUI Pulmonary Disease 01/29/21 documented as of this encounter
--- OUTSIDE RECORDS SUMMARY | 2024-02-03 13:16 | XMS_ITS | Encounter Summary ---
Author Organization [facility] Address [address] [place] [address] Care Team Providers Care Drug Purchaser Name Role Phone Lynn Solis FRUIT STUFFER Primary Care Provider [phone] Lian Parnell MANAGER COMMODITIES Primary Care Provider [phone] Encounter Details Date Type Department Care Team (Late st Contact Info) Description 04/24/2020 Lab Requisition [facility] Pathology & [place] [address] Outr Resulting Lab, Provider Social History Tobacco [...] Priority Date/Time Associated Diagnosis Comments HEPATITIS B PROFILE After X-Ray 04/15/2020 8:40 EST documented in this encounter Results * HEPATITIS B PROFILE (04/15/2020 8:40 EST) Hep B Surface Ag Negative Negative 05/29/20 14:34 EST [facility] Hep B Surface Ab, Quantitative <3.1 See Note mIU/mL 05/29/2020 14:34 EST [facility] Comment: Reference Range for Hep B Surface Ab, Quant: Positive: >= 10.0 mIU/mL Negative: ??< 10.0 mIU/mL Patient is presumed to not be immune to infection with Hepatitis B Virus. Hep B Surface Ab, Qualitative Negative See Note 05/29/2020 14:34 [facility] Comment: Reference Range for Hep B Surface Ab, Qual: Unvaccinated: ??Negative Vaccinated: ??Positive Hepatitis B Core Ab, Total Negative Negative 05/29/2020 14:34 EST [facility] Blood VENOUS BLOOD / Unknown 04/15/2020 8:40 EST 05/14/2020 13:43 EST Provider Outr Resulting Lab CHEMISTRY & BLOOD GAS ORDERABLES Performing Organization Address City/State/[facility] Co de Phone Number [facility] [address] [place] [address] documented in this encounter Visit Diagnoses Not on filedocumented in this encounter Care Teams Drug Purchaser Relationship Specialty Start Date End Date Lynn Solis NP [address] [place] [address] PCP - General 05/28/14 09/15/21 Lian Parnell FNP [address] [place] [phone] PCP - General Family Medicine - Primary Care 09/16/21 CHARLENE URIOSTEGUI Pulmonary Disease 01/29/21 documented as of this encounter
--- OUTSIDE RECORDS SUMMARY | 2024-02-03 13:16 | XMS_ITS | Encounter Summary ---
Author Organization [facility] Address [address] [place] [address] Care Team Providers Care Boring Mill Set Up Operator Vertical Name Role Phone IssaalbaLynn brooks Iris TIERNEY Primary Care Provider [phone] Encounter Details Date Type Department Care Team (Late st Contact Info) Description 06/22/2014 16:00 EST - 06/22/2014 23:59 [facility] Hospital Encounter [facility] - [address] [place] [address] Mitchell Lee MD [address] [place] [phone] Discharge Disposition: Home or Self Care Social [...] as of this encounter Discharge Diagnoses Diagnosis V72.5 RADIOLOGICAL EXAM NEC[ICD-9-CM] documented in this encounter Medications at Time [...] Code Departure Means Destination Home or Self [facility]dc documented in this encounter Plan of Treatment Not on file documented as of this encounter Visit Diagnoses Not on filedocumented in this encounter Care Teams Boring Mill Set Up Operator Vertical Relationship Specialty Start Date End Date Lynn Solis NP [address] [place] [address] PCP - General 05/28/14 09/15/21 documented as of this encounter
--- OUTSIDE RECORDS SUMMARY | 2024-02-03 13:16 | XMS_ITS | Encounter Summary ---
Author Organization [facility] Address [address] [place] [address] Care Team Providers Care Internet Researcher Name Role Phone Lynn Solis MARINE ELECTRICIAN APPRENTICE Primary Care Provider [phone] Lian Parnell METAL FITTERS AND MACHINISTS Primary Care Provider [phone] Encounter Details Date Type Department Care Team (Late st Contact Info) Description 03/13/2020 Lab Requisition [facility] Pathology & [place] [address] Outr Resulting Lab, Provider Social History Tobacco [...] Procedure Name Priority Date/Time Associated Diagnosis Comments DO NOT ORDER STANDALONE - BROAD COVID TEST Today 03/13/2020 18:00 EDT COVID-19 TESTING Routine 03/13/2020 18:0 0 EDT documented in this encounter Results * DO NOT ORDER STANDALONE - BROAD COVID TEST (03/13/2020 18:00 EDT) COVID-19 rt-PCR Result NEGATIVE Negative 03/15/2020 8:18 EDT [facility] Comment: 2019-novel Coronavirus (2019-nCoV) not detected by the qRT-PCR assay. Consider testing for other respiratory viruses or re-collecting for 2019-nCoV testing. Note: Optimum timing for peak viral levels during infections caused by 2019-nCoV have not been determined. Collection of multiple specimens from the same patient may be necessary to detect the virus. Limitations Positive results are indicative of active infection with SARS-CoV-2 but do not rule out bacterial infection or co-infection with other viruses. The agent detected may not be the definite cause of disease. In addition, detection of viral RNA may not indicate the presence of infectious virus or that SARS-CoV-2 is the causative agent for clinical symptoms. Negative results do not preclude SARS-CoV-2 infection and should not be used as the sole basis for patient management decisions. Negative results must be combined with clinical observations, patient history, and epidemiological information. False negative results may also occur if amplification inhibitors are present in the specimen or if inadequate numbers of organisms are present in the specimen. Optimum specimen types and timing for peak viral levels during infections caused by SARS-CoV-2 have not been fully determined. Collection of multiple specimens (types and time points) from the same patient may be necessary to detect the virus. The test was validated for use with upper respiratory specimens obtained via nasopharyngeal or oropharyngeal swabs in VTM, UTM, M4, M5, M6, saline, and MTM media. The performance of this test has not been established for other specimens. Specimens collected using other FDA recommended Specimen Collection Materials listed in the FDA COVID-19 Diagnostic Technologies communication (August 24, 2019) are processed with the caveat that they were not all validated for use with this test and the result must be interpreted in this context. Furthermore, a false negative results may occur if a specimen is improperly collected, transported or handled. If the virus mutates in the RT-PCR target region, SARS-CoV-2 may not be detected or may be detected less predictably. Inhibitors or other types of interference may produce a false negative result. An interference study evaluating the effect of common cold medications was not performed. This test is not FDA-cleared but its performance characteristics were established by our CLIA-certified, CAP-accredited, high complexity laboratory in accordance with CLIA regulations, College [employer] (CAP) guidelines (Aug 17, 2019), and FDA guidance (Jul 29, 2019). This test is only for use under the Food and Drug Administration's Emergency Use Authorization. Swab ENTIRE NASOPHARYNX / Unknown 03/13/2020 18:00 EDT 03/13/2020 22:16 EDT Provider Outr Resulting Lab MICROBIOLOGY - GENERAL ORDERABLES [facility] [place], [place] * COVID-19 TESTING (03/13/2020 18:00 EDT) COVID-19 rt-PCR Result NEGATIVE Negative 03/15/2020 9:19 EDT [facility] Comment: 2019-novel Coronavirus (2019-nCoV) not detected by the qRT-PCR assay. Consider testing for other respiratory viruses or re-collecting for 2019-nCoV testing. Note: Optimum timing for peak viral levels during infections caused by 2019-nCoV have not been determined. Collection of multiple specimens from the same patient may be necessary to detect the virus. Limitations Positive results are indicative of active infection with SARS-CoV-2 but do not rule out bacterial infection or co-infection with other viruses. The agent detected may not be the definite cause of disease. In addition, detection of viral RNA may not indicate the presence of infectious virus or that SARS-CoV-2 is the causative agent for clinical symptoms. Negative results do not preclude SARS-CoV-2 infection and should not be used as the sole basis for patient management decisions. Negative results must be combined with clinical observations, patient history, and epidemiological information. False negative results may also occur if amplification inhibitors are present in the specimen or if inadequate numbers of organisms are present in the specimen. Optimum specimen types and timing for peak viral levels during infections caused by SARS-CoV-2 have not been fully determined. Collection of multiple specimens (types and time points) from the same patient may be necessary to detect the virus. The test was validated for use with upper respiratory specimens obtained via nasopharyngeal or oropharyngeal swabs in VTM, UTM, M4, M5, M6, saline, and MTM media. The performance of this test has not been established for other specimens. Specimens collected using other FDA recommended Specimen Collection Materials listed in the FDA COVID-19 [employer] communication (August 24, 2019) are processed with the caveat that they were not all validated for use with this test and the result must be interpreted in this context. Furthermore, a false negative results may occur if a specimen is improperly collected, transported or handled. If the virus mutates in the RT-PCR target region, SARS-CoV-2 may not be detected or may be detected less predictably. Inhibitors or other types of interference may produce a false negative result. An interference study evaluating the effect of common cold medications was not performed. This test is not FDA-cleared but its performance characteristics were established by our CLIA-certified, CAP-accredited, high complexity laboratory in accordance with CLIA regulations, [employer] of [employer] (CAP) guidelines (Aug 17, 2019), and FDA guidance (Jul 29, 2019). This test is only for use under the Food and Drug Administration's Emergency Use Authorization. Performing Lab [employer] 03/15/2020 9:19 EDT [facility] Swab 03/13/2020 18:0 0 EDT 03/13/2020 22:16 EDT Provider Outr Resulting Lab MICROBIOLOGY - GENERAL ORDERABLES [facility] [address] [place] [address] [facility] [place] documented in this encounter Visit Diagnoses Not on filedocumented in this encounter Care Teams Internet Researcher Relationship Specialty Start Date End Date Lynn Solis NP [address] [place] [address] PCP - General 05/28/14 09/15/21 Lian Parnell FNP [address] [place] [address] PCP - General Family Medicine - Primary Care 09/16/21 CHARLENE URIOSTEGUI Pulmonary Disease 01/29/21 documented as of this encounter
--- OUTSIDE RECORDS SUMMARY | 2024-02-03 13:16 | XMS_ITS | Encounter Summary ---
Author Organization [facility] Address [address] [place] [address] Care Team Providers Care Die Cleaner Name Role Phone Will Lynn Iris TIERNEY Primary Care Provider [phone] Reason for Referral * Consult (Routine) - Closed Specialty Diagnoses / Procedures Referred By Mavis rhodes Referred To Contact Pain Medicine Diagnoses Low back pain radiating to both legs Marifer Costello PA-C [address] [place] [address] [facility] [address] [place] [address] Referral ID Status Reason Start Date Expiration Date V isits Requested Visits Authorized [id number] Closed Specialty Services Required 11/01/2014 1 1 Question Answer Reason for Request: Low back pain radiating to both legs Comments Recommend repeating L4-L5/L5-S1 B/L facet injections Reason for Visit * Reason Comments Back Pain low back pain; facet injection 100% relief first day; 10-20% for 2-3 additional days; SPECT CT f/u Encounter Details Date Type Department Care Team (Late st Contact Info) Description 11/01/2014 15:15 EDT Office Visit [facility] Spine [place] [address] [place] [address] Marifer Costello PA-C [address] [place] [address] Low back pain radiating to both legs (Primary Dx) Discharge Disposition: Auto Discharge Social History Tobacco [...] this encounter Discharge Diagnoses Diagnosis 724.2 LUMBAGO[ICD-9-CM] documented in this encounter Discharge Disposition Disposition Code Departure Means Destination Auto Discharge documented in this encounter Progress Notes * Julia Menchaca - 11/01/2014 1546 EDT Patient given written and verbal patient education on injection * Marifer Costello PA - 11/01/2014 1455 EDT Frankristian Justin Sr. is being seen as a consultation from Dr. Soils. Chief Complaint Patient presents with ??? Back Pain low back pain; facet injection 100% relief first day; 10-20% for 2-3 additional days; SPECT CT f/u The encounter diagnosis was Low back pain radiating to both legs. HPI Mr. Justin is a 49 y.o. pleasant male who returns to the clinic today, 11/01/2014, for FU post L4-L5/L5-S1 B/L facet injections (07/03/2014). The patient reports 100% relief of symptoms after the injections for the first day and then 10%-20% relief for three more days. Gradually after that, he returned to pre-injection status. In 06/25/2014, Mr. Justin had a FU visit post MRI (06/22/2013). The patient reports no [...] Physical Exam Ortho Exam Neurologic Exam Today, 11/01/2014, I ordered plain radiographs and I independently reviewed the following: MRI from [...] symptoms. LE pain could be referred pain. Recent facet injections provided 100% relief of symptoms for one day and about 10%-20% for a week thereafter. Then back to pre- injection status. He would like to try facet injections one more time. He has agreedto the following plan. Other Orders Placed This Visit Procedures ??? Amb Consult/Follow Up Pain Interventional Plan: 1. Order L4-L5/L5-S1 B/L facet injections 2. Continue activity as tolerated 3. Return to clinic post facet injections 4. If no relief from facet injections, consider consultation with interventional radiology for vertebroplasty CC: Dr. Will White was the attending physician available in the clinic today if needed. A consultation was not required. documented in this encounter Plan of Treatment Scheduled Referrals Name Type Priority Associated Diagnoses Order Schedule AMB CONS/FOLLOW UP PAIN INTERVENTIONAL Outpatient Referral Routine Low back pain radiating to both legs Ordered: 11/01/2014 documented as of this encounter Visit Diagnoses Diagnosis Low back pain radiating to both legs- Primary Lumbago documented in this encounter Care Teams Die Cleaner Relationship Specialty Start Date End Date Lynn Solis, [address] [place] [address] PCP - General 05/28/14 09/15/21 documented as of this encounter
--- OUTSIDE RECORDS SUMMARY | 2024-02-03 13:16 | XMS_ITS | Encounter Summary ---
Author Organization [facility] Address [address] [place] [address] Care Team Providers Care Assembler Chassis Name Role Phone Will Lynn Iris TIERNEY Primary Care Provider [phone] Reason for Referral * Consult (Routine) - Closed Specialty Diagnoses / Procedures Referred By Mavis rhodes Referred To Contact Pain Medicine Diagnoses Low back pain radiating to both legs Marifer Costello PA-C [address] [place] [phone] [facility] [address] [place] [address] Referral ID Status Reason Start Date Expiration Date V isits Requested Visits Authorized [id number] Closed Specialty Services Required 02/28/2015 1 1 Question Answer Reason for Request: Low back pain radiating to both legs Comments Recommend L4-L5 MITESH Reason for Visit * Reason Comments Back Pain MBB f/u 0% relief Encounter Details Date Type Department Care Team (Late st Contact Info) Description 02/28/2015 15:15 EDT Office Visit [facility] Spine Program - [address] [facility] [place] [address] Marifer Costello PA-C [address] [place] [phone] Low back pain radiating to both [...] Yes 01/31/2015 documented as of this encounter Discharge Diagnoses Diagnosis M54.5 Low back pain-M54.5[ICD-10-CM] documented in this encounter Discharge Disposition Disposition Code Departure Means Destination Auto Discharge documented in this encounter Progress Notes * Julia Menchaca - 02/28/2015 1444 EDT Patient given written and verbal patient education on injection * Marifer Costello PA - 02/28/2015 1443 EDT Fran Blanca Justin Sr. is being seen as a consultation from Dr. Solis. Chief Complaint Patient presents with ??? Back Pain MBB f/u 0% relief The encounter diagnosis was Low back pain radiating to both legs. HPI Mr. Justin is a 49 y.o. pleasant male who returns to the clinic today, 02/28/2015, for FU post MBB (01/31/2015). The patient reports no relief of symptoms after MBB not even for a couple of hours. In 11/01/2014, Mr. Justin had a FU visit post L4-L5/L5-S1 B/L facet injections (07/03/2014). The [...] GERD (gastroesophageal reflux disease) ??? Emphysema lung ??? Emphysema of lung ??? Anxiety ??? Depression Past Surgical History Procedure Laterality Date ??? [...] Physical Exam Ortho Exam Neurologic Exam Today, 02/28/2015, I independently reviewed the following: MRI from [...] LE pain could be referred pain. Recent MBB injections provided no relief of symptoms at all. Previously, facet injections provided 100% relief of symptoms for one day and about 10%-20% for a week thereafter. He has agreed to the following plan. Other Orders Placed This Visit Procedures ??? Amb Consult/Follow Up Pain Interventional Plan: 1. Order L4-L5 MITESH 2. Continue activity as tolerated 3. Return to clinic post L4-L5 MITESH CC: Dr. Will White was the attending physician available in the clinic today if needed. A consultation was not required. documented in this encounter Plan of Treatment Scheduled Referrals Name Type Priority Associated Diagnoses Order Schedule AMB CONS/FOLLOW UP PAIN INTERVENTIONAL Outpatient Referral Routine Low back pain radiating to both legs Ordered: 02/28/2015 documented as of this encounter Visit Diagnoses Diagnosis Low back pain radiating to both legs- Primary Lumbago documented in this encounter Historical Medications * This list may reflect changes made after this encounter. Medication Sig Dispensed Refills Start Date End Date atomoxetine (STRATTERA) 40 mg capsule Take 40 mg by mouth daily 03/13/2020 added in this encounter Care Teams Assembler Chassis Relationship Specialty Start Date End Date Lynn Solis CORROSION PREVENTION METAL SPRAYER [address] [place] [id number] PCP - General 05/28/14 09/15/21 documented as of this encounter
--- OUTSIDE RECORDS SUMMARY | 2024-02-03 13:16 | XMS_ITS | Encounter Summary ---
Author Organization 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 New Patient Note Due to computer system disruption, additional clinical information for this visit is written note copy to [facility].. For patients, please refer to guidance in [employer] on how to locate information. Generally this information will appear as a scanned documents saved in My Documents activity. Fran Justin Sr. :1965 Age:54 y.o. Gender:male Date of Service:03/26/2020 History of present illness: 1: Classic Hodgkin [...] wall thickness normal -03/26/2020 PET scan. -03/27/2020 good candidate for ABVD due to severe COPD oxygen dependent. Recommend R-CHOP x6 3: Left axillary infection post excisional biopsy due to seroma. 2: Complains of right upper quadrant abdominal pain. Physical exam ventral hernia, pending ultrasound -03/18/2020 ultrasound right upper quadrant: Negative gallbladder ultrasound no evidence of cholelithiasis. 3: History of tobacco abuse. -12/29/2018 CT chest Amairani. No malignancy. Left axilla showing a 1.3 cm lymph node shortness axis. - 11/22/2019 2 pack/day for 46 years for total of 42 pack to pack year history. Followed by Dr Donta hernandez in [place]. -Scheduled for a yearly screening CT chest in December. -01/24/2020 CT CLD: Stable 6 mm left lower lobe nodule. Diffuse mild centrilobular emphysema. Enlarged morphologically abnormal left axillary lymph node noted short axis I 0.9 cm. Pathologic lymph node is not excluded. -03/27/2020 highly recommend smoke cessation History: Mr. Justin comes in for follow-up, post excisional biopsy discuss pathology and therapy. ROS: Review of Systems Constitutional: Negative for chills, fever and weight loss. States the left axillary node he did previously feel that completely regressed. HENT: Negative for hearing loss and sore throat. Eyes: Negative. Respiratory: Positive for cough (Chronic cough nonproductive secondary to tobacco abuse.), shortness of breath and wheezing. Negative for hemoptysis. Diagnosed with COPD followed by Dr. Mcneil pulmonary at [facility]. Had a CT of the chest December [...] found. Wt Readings from Last 3 Encounters: 03/13/20 59 kg (130 lb 1.1 oz) 11/23/19 63.9 kg (140 lb 14 oz) 03/23/19 65.8 kg (145 lb) Ht Readings from Last 1 Encounters: 11/23/19 162.6 cm (64) Estimated body surface area is 1.63 meters squared as calculated from the following: Height as of 11/23/19: 162.6 cm (64). Weight as of 03/13/20: 59 kg (130 lb 1.1 oz). Physical [...] Puffs as directed every 4 hours. ??? amoxicillin (AMOXIL) 875 mg tablet Take 1 Tab by mouth 2 times daily. FOR 10 DAYS ??? famotidine (PEPCID) 40 mg tablet Take 40 mg by mouth at bedtime. ??? lamoTRIgine (LAMICTAL) 100 mg tablet Take 100 mg by mouth 2 times daily. ??? lamoTRIgine (LAMICTAL) 200 mg tablet Take 200 mg by mouth 2 times daily. ??? methylphenidate HCl (RITALIN;METHYLIN) 5 mg [...] Cap by mouth 3 times daily. ??? sildenafil citrate (VIAGRA) 100 mg tablet Take by mouth daily as needed. ??? TRELEGY ELLIPTA 100-62.5-25 mcg Inhale 1 Puff as directed daily. ??? VITAMIN B-12 1,000 mcg tablet Take 1,000 mcg by mouth daily. No current facility-administered medications for this visit. Data Review: Labs: Imagin10/31/2019: Ultrasound of the [facility]. Left axillary lymph node measuring 3.2 [...] cm in the short axis. Assessment: 1. Hodgkin lymphoma: See written copy note to EMS chart. 2. COPD Diagnosed with COPD followed by Dr. Mcneil pulmonary at [facility]. Had a CT of thechest December 2018 scheduled for follow-up in December 2019. 3. Tobacco abuse upwards of 2 packs/day since age 8 no radiographic evidence of pulmonary cancer, encouraged him to seek help and try 1 of the smoke cessation programs available through the [facility], we have a program at [facility] that is funded by the [facility] and free for him if he wishes to pursue it. 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 FOR 10 DAYS Therapy completed 03/07/2020 05/09/2020 documented as of this encounter Historical Medications * This list may reflect changes made after this encounter. Medication Sig Dispensed Refills Start Date End Date meloxicam (MOBIC) 15 mg tablet Take 1 Tablet by mouth daily. QUEtiapine (SEROQUEL) 100 mg tablet Take 1 Tablet by mouth daily. VITAMIN B-12 1,000 mcg tablet Take 1 Tablet by mouth daily. 01/23/2020 TRELEGY ELLIPTA 100-62.5-25 mcg Inhale 1 Puff as directed daily. 03/07/2020 lamoTRIgine (LAMICTAL) 100 mg tablet Take 1.5 Tablets by mouth 2 times daily. 12/19/2019 HYDROcodone-acetaminophe n (NORCO) 5-325 mg tablet Take 1-2 Tabs by mouth every 6 hours as needed for Pain. 11/02/2022 DULoxetine (CYMBALTA) 20 mg delayed release capsule Take 20 mg by mouth 2 times daily. 11/02/2022 DULoxetine (CYMBALTA) 30 mg delayed release capsule Take 30 mg by mouth daily. 11/02/2022 amoxicillin (AMOXIL) 875 mg tablet Take 1 Tab by mouth 2 times daily. FOR 10 DAYS 03/07/2020 05/09/2020 methylphenidate HCl (RITALIN;METHYLIN) 5 mg tablet Take 5 mg by mouth daily. 01/15/2020 07/11/2020 oxyCODONE (ROXICODONE) 5 mg immediate release tablet Take 1-2 Tabs by mouth every 3 hours as needed for Pain. 03/14/2020 11/02/2022 pregabalin (LYRICA) 200 mg capsule Take 1 Cap by mouth 3 times daily. 02/29/2020 04/27/2022 sildenafil citrate (VIAGRA) 100 mg tablet Take by mouth daily as needed. 01/21/2020 04/27/2022 added in this encounter Care Teams Striper Relationship Specialty Start Date End Date Lynn Solis NP [address] [place] [address] PCP - General 05/28/14 09/15/21 documented as of this encounter
--- OUTSIDE RECORDS SUMMARY | 2024-02-03 13:16 | XMS_ITS | Encounter Summary ---
Author Organization [facility] Address [address] [place] [address] Care Team Providers Care Front Counter Attendant Name Role Phone Lynn Solis RUBY ON RAILS ENGINEER Primary Care Provider [phone] Lian Parnell PASSENGER CAR CLEANING SUPERVISOR Primary Care Provider [phone] Encounter Details Date Type Department Care Team (Late st Contact Info) Description 2020 Results Only Imaging [facility] Radiology Results [address] [place] [id number] Jaxon Stephens MD [address] [place], [place] [address] [address] [place] [phone] Social History Tobacco Use Types Packs/Day Years [...] Diagnosis Comments PET CT EYE TO THIGH 2020 1 5:16 EDT documented in this encounter Results * PET CT EYE TO THIGH (2020 15:16 EDT) Anatomical Region Laterality Modality Body Positron Emissio n Tomography (PET) 2020 15:1 6 EDT Narrative 2020 15:16 EDT ? EXAM: PET/CT SCAN/PET/CT SKULL BASE TO ID EX. D/ ([id number]) ? CLINICAL INFORMATION: ? C81.44 LYMPHOCYTE-RICH HODGKIN ? LYMPHOMA OF LYMPH NODES OF AXILLA ? Indication: Lymphoma ? Comparison: None available. ? Technique: Following the IV injection of FDG and a standard uptake ? period, a noncontrast CT scan followed by PET scan were acquired along ? with the length of the body from approximately the base of the skull ? to the mid thighs. ??The noncontrast CT was used for automatic ? localization and photon attenuation correction of the PET scan. ? Dose: 12.2 mCi ? Findings: ? PET findings: ? A centrally necrotic 5.0 x 5.6 cm left axillary mass is peripherally ? FDG avid and demonstrates an SUV max of 8.0. ? A right axillary lymph node is borderline enlarged, measuring 1.1 cm ? short axis, but maintains a fatty hilum. ??Uptake of this lymph node is ? low, with SUV max of 1.3 which is less than liver background of 1.8. ? This is likely benign. ? There is low-level uptake within the distal esophagus, where there is ? an SUV max of 2.9. ? Note is also made of focally elevated uptake within the cecum, where ? there is an SUV max of 5.9 and at the rectum, where there is no see a ? max of 4.3. ? Additional low-dose CT findings: ? Emphysema. ??Atherosclerosis. ??The spleen is normal in size ? Impression: ? 1. ??5.6 cm centrally necrotic FDG avid left axillary mass, consistent ? with history of lymphoma. ??No other FDG avid nodes are detected. ? The spleen is normal in size. ? 2. ??Mildly elevated uptake within the distal esophagus. ? Please correlate clinically and consider further assessment with ? endoscopy. ? 3. ??Focally elevated uptake within the cecum and rectum. ??This is ? highly nonspecific. ??Please correlate with colonoscopy. ? REM/kad ?Reported By: Kody Parry MD ? CC: ? Transcribed Date/Time: 2020 (6026) ? Assistant Professor Of Nursing: TRACIE ? Printed Date/Time: 2020 (4315) ? PAGE 1 ? Signed Report ? Procedure Note Kody Parry MD - 04/22/2020 EXAM: PET/CT SCAN/PET/CT SKULL BASE TO ID EX. D/ ([id number]) CLINICAL INFORMATION: C81.44 LYMPHOCYTE-RICH HODGKIN LYMPHOMA OF LYMPH NODES OF AXILLA Indication: Lymphoma Comparison: None available. Technique: Following the IV injection of FDG and a standard uptake period, a noncontrast CT scan followed by PET scan were acquiredalong with the length of the body from approximately the base of theskull to the mid thighs. The noncontrast CT was used for automatic localization and photon attenuation correction of the PET scan. Dose: 12.2 mCi Findings: PET findings: A centrally necrotic 5.0 x 5.6 cm left axillary mass isperipherally FDG avid and demonstrates an SUV max of 8.0. A right axillary lymph node is borderline enlarged, measuring 1.1cm short axis, but maintains a fatty hilum. Uptake of this lymph nodeis low, with SUV max of 1.3 which is less than liver background of 1.8. This is likely benign. There is low-level uptake within the distal esophagus, where thereis an SUV max of 2.9. Note is also made of focally elevated uptake within the cecum,where there is an SUV max of 5.9 and at the rectum, where there is no seea max of 4.3. Additional low-dose CT findings: Emphysema. Atherosclerosis. The spleen is normal in size Impression: 1. 5.6 cm centrally necrotic FDG avid left axillary mass,consistent with history of lymphoma. No other FDG avid nodes aredetected. The spleen is normal in size. 2. Mildly elevated uptake within the distal esophagus. Please correlate clinically and consider further assessmentwith endoscopy. 3. Focally elevated uptake within the cecum and rectum. This is highly nonspecific. Please correlate with colonoscopy. REM/kad Reported By: Kody Parry MD CC: Transcribed Date/Time: 2020 (0784) Assistant Professor Of Nursing: TRACIE Printed Date/Time: 2020 (9631) PAGE 1 Signed Report Jaxon Stephens MD IMG NM ORDERABLES documented in this encounter Visit Diagnoses Not on filedocumented in this encounter Care Teams Front Counter Attendant Relationship Specialty Start Date End Date Lynn Solis NP [address] [place] [address] PCP - General 05/28/14 09/15/21 Lian Parnell, PASSENGER CAR CLEANING SUPERVISOR [address] [place] [address] PCP - General Family Medicine - Primary Care 09/16/21 CHARLENE URIOSTEGUI Pulmonary Disease 01/29/21 documented as of this encounter
--- OUTSIDE RECORDS SUMMARY | 2024-02-03 13:16 | XMS_ITS | Encounter Summary ---
Author Organization [facility] Address [address] [place] [address] Care Team Providers Care Centerless Grinder Name Role Phone Lynn Solis C SOFTWARE ENGINEER Primary Care Provider [phone] Reason for Referral * Referral (Routine/Next Available) - Specialty Report Received Specialty Diagnoses / Procedures Referred By Mavis rhodes Referred To Contact Pain Medicine Diagnoses Low back pain radiating to both legs Marifer Costello PA-C [address] [place] [address] [facility] [address] [place] [id number] Referral ID Status Reason Start Date Expiration Date Visits Requested Visits Authorized [id number] Specialty Report Received Specialty Services Required 9 1 1 Question Answer Reason for Request: Low back pain radiating to both legs Has the patient had 6 weeks of conservative treatment such as physicial therapy or NSAIDS? Yes Associated Notes: PRISM Comments Recommend B/L L4-L5/L5-S1 facet injections Reason for Visit * Reason Comments Back Pain * Consult, Test and Treat (Routine) - Closed Specialty Diagnoses / Procedures Referred By Mavis rhodes Referred To Contact Orthopedic Surgery Diagnoses Chronic low back pain Lynn Solis, C SOFTWARE ENGINEER [address] [place] [address] Marifer Costello PA-C [address] [place] [address] Referral ID Status Reason Start Date Expiration Date Visits Re quested Visits Authorized [id number] Closed 1 1 Encounter Details Date Type Department Care Team (Late st Contact Info) Description 03/23/2019 13:45 EDT Office Visit [facility] - [address] [place] [address] Marifer Costello PA-C [address] [facility] [place] [address] Low back pain radiating to [...] - Inhaled Oxygen Concentration - - Weight 65.8 kg (145 lb) 03/23/2019 1411 EDT Height 162.6 cm (5' 4) 03/23/2019 1411 EDT Body Mass Index 24.89 03/23/2019 1411 EDT documented in this encounter Functional Status [...] 03/23/2019 documented as of this encounter Discharge Diagnoses Diagnosis S32.018D Other fracture of first lumbar vertebra, subsequent encounter for fracture with routine healing-S32.018D[ICD-10-CM] M47.896 Other spondylosis, lumbar region-M47.896[ICD-10-CM] documented in this encounter Discharge Disposition Disposition Code Departure Means Destination Auto Discharge documented in this encounter Progress Notes * SukumartanyiaMarifer soriano - 03/23/2019 1345 EDT Mr. Justin is a 53 y.o. pleasant male who presents to the clinic today, 03/23/2019, with 1. 80% LBP. 2. 30% B/L LE pain affecting: A. THIGH: anterior and posterior aspect. B. LOWER LEG: posterior aspect. C. FOOT: Numbness and tingling affecting the dorsal/plantar aspect of foot including all toes. ONSET: This is a chronic issue that has been present since 1999. Has worsened over the last year. Symptoms wax and wane, but they are present everyday. CONSERVATIVE TX: 1. Physical Therapy: YES; has helped somewhat, but not to a satisfactory degree. 2. CHIRO: NO. 3. Steroid injections: lumbar facet injections in 07/03/2014. 100% relief for one day and then 10%-20% relief for three more days. ALLEVIATING FACTORS: Lying down on his sides. AGGRAVATING FACTORS: standing, lifting, walking, flexing his back, extending his back. PAIN: 7/10. SOCIAL: 1. SMOKIN ppd x 45 years. 2. WORK: Not working secondary to disability since 1991. 3. Patient lives by himself. Review of Systems Constitutional: Positive for activity change. Negative for unexpected weight change. Eyes: Negative for visual disturbance. Respiratory: Negative for chest tightness. Gastrointestinal: Negative for constipation. Genitourinary: Negative for difficulty urinating. Musculoskeletal: Positive for low back pain. Positive for neck pain. Skin: Negative for rash. Neurological: positive for numbness. Psychiatric/Behavioral: Negative for agitation and behavioral problems. Physical Exam Constitutional: Patient is oriented to person, place, and time, and appears well-developed and well-nourished. Eyes: EOM are normal. Pupils are equal, round, and reactive to light. Cardiovascular: Normal rate. Pulmonary/Chest: Effort normal and breath sounds normal. Neurological: Patient is alert and oriented to person, place, and time. Skin: Skin is warm and dry. No rash noted. Psychiatric: Patient has a normal mood and affect, and behavior is normal. Family and Social History: Reviewed. Back Exam GAIT: Normal. HEEL & TOE WALKING: NEG. LESIONS, RASHES OR HAIR STEVEN: NEG. FROM, but pain is elicited with bending and extension/rotation of the lumbar spine. TENDERNESS ON PALPATION: NEG. STRENGTH: 5/5 REFLEXES: Patellar 2/4 B/L; Achilles 2/4 B/L. BABINSKI: Down. CLONUS: NEG. DP: 2/2. SENSATION: Intact. SLR RIGHT: NEG. LEFT: NEG. HIP ROM: Full. LUCA'S: NEG. Today, 03/23/2019, I ordered plain radiographs and I independently reviewed the following radiographs: Lumbar Plain radiographs (AP/Lat/Flex/Ex): 1. Five (5) non-rib bearing lumbar vertebrae 2. There is a right convex curvature in lumbar spine with apex at L1 - L2 3. Grade I retrolisthesis of L1 on L2 remaining unchanged on Flex-Ex 4. Facet arthropathy of the lower lumbar spine 5. Disc height reduction at L4-L5/L5-S1 conistent with degenerative disc disease 6. T12 and L1 compressive fractures MRI from prior work up in May 2014: T12-L1: There is mild global disc bulge which produces minimal mass effect on the ventral thecal sac but no impingement on the conus. L1-L2: There is global disc bulge which produces mild mass effecton the ventral thecal sac and mild narrowing [...] focal disc herniation or spinal stenosis identified. L 4-L5: There is mild global disc bulge and mild facet hypertrophy without focal disc herniation. Slight narrowing of the neural foramina is demonstrated bilaterally. L5-S1: No disc herniation or spinal stenosis is noted. Assessment: 53 y.o. male with 1. LBP most likely from degenerative disc and facet disease although muscular pain secondary to scoliosis is also plausible. 2. Bilateral LE pain along the L3 and S1 dermatomes that could be radicular in nature. L3 symptoms are new comparing to old symptoms when I saw the patient back in 2014. MRI from 2014, is not concordant. He has agreed to the following plan. Plan: 1. Order L4-L5/L5-S1 B/L facet injections. 2. Continue with in-home exercise program. 3. Continue activity as tolerated. 4. Return to clinic post facet injections. 5. If no relief from lumbar facet injections, consider new MRI - MRI will mostly help identify possible L3 nerve root compression. CC: Dr. Will White was the attending physician available in the clinic today if needed. A consultation was not required. documented in this encounter Plan of Treatment Scheduled Referrals Name Type Priority Associated Diagnoses Orde r Schedule AMB PAIN PROCEDURE Outpatient Referral Routine Low back pain radiating to both legs Ordered: 03/23/2019 documented as of this encounter Visit Diagnoses Diagnosis Low back pain radiating to both legs- Primary Lumbago documented in this encounter Care Teams Centerless Grinder Relationship Specialty Start Date End Date Lynn Solis, NIALL [address] [place] [address] PCP - General 05/28/14 09/15/21 documented as of this encounter
--- OUTSIDE RECORDS SUMMARY | 2024-02-03 13:16 | XMS_ITS | Encounter Summary ---
Author Organization [facility] Address [address] [place] [address] Care Team Providers Care Engineering Laboratory Technician Name Role Phone Lynn Solis WASTEWATER OPERATOR Primary Care Provider [phone] Lian Parnell DIESEL PILE HAMMER OPERATOR Primary Care Provider [phone] Encounter Details Date Type Department Care Team (Late st Contact Info) Description 03/15/2020 Lab Requisition [facility] Pathology & [place] [address] Outr Resulting Lab, Provider Social History Tobacco [...] Procedure Name Priority Date/Time Associated Diagnosis Comments CHROMOSOME ANALYSIS Today 03/15/2020 1 3:15 EDT documented in this encounter Results * CHROMOSOME ANALYSIS (03/15/2020 13:15 EDT) CYTOGENETICS INTERPRETATION Testing canceled per Dr. Justice at [facility] Hematopathology Department. All charges have been credited. 03/25/2020 16:58 EDT [facility] Attestation By the signature below, the attending physician certifies that they have 1) personally conducted a gross and/or microscopic examination of the described specimen(s), and/or personally interpreted the results of laboratory testing of the described specimen(s), and 2) personally rendered or confirmed the above diagnosis. 03/25/2020 16:58 EDT [facility] at 1658 Clinical History Lt Axillary mass 16:58 EDT [facility] Testing Performed G-banded karyotype ordered but not completed 03/25/2020 16:58 EDT [facility] Scanned Images 03/25/2020 16:58 EDT [facility] ZZUNK ENTIRE LYMPH NODE / Unknown 03/15/2020 13:15 EDT 03/16/2020 8:37 EDT ZZUNK ENTIRE LYMPH NODE / Unknown 03/15/2020 13:15 EDT 03/16/2020 9:18 EDT Provider Outr Resulting Lab PATHOLOGY OR DERABLES Performing Organization Address City/State/[facility] Co de Phone Number [facility] [address] [place] [address] documented in this encounter Visit Diagnoses Not on filedocumented in this encounter Care Teams Engineering Laboratory Technician Relationship Specialty Start Date End Date Lynn Solis NP [address] [place], [place] [address] PCP - General 05/28/14 09/15/21 Lian Parnell FNP [address] [place] [address] PCP - General Family Medicine - Primary Care 09/16/21 CHARLENE URIOSTEGUI Pulmonary Disease 01/29/21 documented as of this encounter
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
--- OUTSIDE RECORDS SUMMARY | 2024-02-03 13:16 | XMS_ITS | Encounter Summary ---
Author Organization [facility] Address [address] [place] [address] Care Team Providers Care Security Business Analyst Name Role Phone Lynn Solis ARTIFICIAL PEARL MAKER Primary Care Provider [phone] Lian Parnell PACKAGE LINE OPERATOR Primary Care Provider [phone] Encounter Details Date Type Department Care Team (Late st Contact Info) Description 01/23/2020 Lab Requisition [facility] Pathology & [place] [address] Outr Resulting Lab, Provider Social History Tobacco [...] Date/Time Associated Diagnosis Comments VITAMIN B12 Routine 01/22/2020 17:24 EDT documented in this encounter Results * (ABNORMAL) VITAMIN B12 (01/22/2020 17:24 EDT) Vitamin B12 1,436(H) 211 - 911 pg/mL 01/23/2020 22:58 EDT [facility] Blood VENOUS BLOOD / Unknown 01/22/2020 17:24 EDT 01/23/2020 22:07 EDT Provider Outr Resulting Lab CHEMISTRY & BLOOD GAS ORDERABLES [facility] [address] [place] [address] documented in this encounter Visit Diagnoses Not on filedocumented in this encounter Care Teams Security Business Analyst Relationship Specialty Start Date End Date Lynn Solis NP [address] [place] [address] PCP - General 05/28/14 09/15/21 Lian Parnell FNP [address] [place] [phone] PCP - General Family Medicine - Primary Care 09/16/21 CHARLENE URIOSTEGUI Pulmonary Disease 01/29/21 documented as of this encounter
--- OUTSIDE RECORDS SUMMARY | 2024-02-03 13:16 | XMS_ITS | Encounter Summary ---
Author Organization [facility] Address [address] [place] [address] Care Team Providers Care Information Systems Administrator Name Role Phone Lynn Solis Iris ROLLING MILL PLUGGER Primary Care Provider [phone] Reason for Visit * Reason Onset Date Comments Results 07/05/2014 Encounter Details Date Type Department Care Team (Late st Contact Info) Description 07/05/2014 Telephone [facility] Interventional Pain [address] [place] [address] Dani Tamayo MD [facility] [place] [phone] Results Social History Tobacco Use Types Packs/Day [...] Miscellaneous Notes * Telephone Encounter - Julia Woodruff RN - 07/05/2014 1245 EST Date and type of procedure: 2/3 diagnostic lumbar facet 4-5, 5-s1 Provider: Zeferino/Monica Hours of relief: 20 + hours % of relief: 90-95% Next appointment: Sergio f/u * Telephone Encounter - Vahid Agustin - 07/05/2014 1025 EST 20+ HOURS AT 90-95% CAN STAND UP STRAIGHT FOR THE FIRST TIME IN A LONG WHILE. documented in this encounter Plan of Treatment Not on file documented as of this encounter Visit Diagnoses Not on filedocumented in this encounter Care Teams Information Systems Administrator Relationship Specialty Start Date End Date Lynn Solis NP [address] [place] [address] PCP - General 05/28/14 09/15/21 documented as of this encounter
--- OUTSIDE RECORDS SUMMARY | 2024-02-03 13:16 | XMS_ITS | Encounter Summary ---
Author Organization [facility] Address [address] [place] [address] Care Team Providers Care Cushion Former Name Role Phone Lynn Solis CAUSTICISER Primary Care Provider [phone] Encounter Details Date Type Department Care Team (Late st Contact Info) Description 11/16/2018 Results Only Imaging [facility]- PRISM [phone] Unknown, Provider, Social History Tobacco Use Types [...] Associated Diagnoses Date /Time OUTSIDE IMAGES - OTHER NEURO Imaging 11/16/2018 16:12 EDT documented as of this encounter Visit Diagnoses Not on filedocumented in this encounter Care Teams Cushion Former Relationship Specialty Start Date End Date Lynn Solis CAUSTICISER [address] [place], [place] [id number] PCP - General 05/28/14 09/15/21 documented as of this encounter
--- OUTSIDE RECORDS SUMMARY | 2024-02-03 13:16 | XMS_ITS | Encounter Summary ---
Author Organization [facility] Address [address] [place] [address] Care Team Providers Care Cake Press Operator Name Role Phone IssaalbaLynn brooks Iris EMERGENCY DEPT TECH Primary Care Provider [phone] Reason for Visit * Reason Onset Date Comments Medication Management 09/20/2014 Encounter Details Date Type Department Care Team (Late st Contact Info) Description 09/20/2014 Telephone [facility] Spine Program - [address] [place] [address] Marifer Costello PA-C [address] [place] [address] Medication Management Social History Tobacco [...] * Telephone Encounter - Julia Menchaca - 09/20/2014 1430 EDT Patient called in stating that RTC keeps messing up on his rides and he is trying to make arrangements for this appointment for next week. I urged him to confirm with transportation as if he does need to reschedule [facility] is out for the month of September and it would be a much further out date. He also asked about pain medication in the meantime. I let him know to refer to his PCP for this need and reminded him of his appointment date and time for next week. documented in this encounter Plan of Treatment Not on file documented as of this encounter Visit Diagnoses Not on filedocumented in this encounter Care Teams Cake Press Operator Relationship Specialty Start Date End Date Lynn Solis, EMERGENCY DEPT TECH [address] [place] [address] PCP - General 05/28/14 09/15/21 documented as of this encounter
--- OUTSIDE RECORDS SUMMARY | 2024-02-03 13:16 | XMS_ITS | Encounter Summary ---
Author Organization [facility] Address [address] [place] [address] Care Team Providers Care Buffing And Polishing Wheel Repairer Name Role Phone Lynn Solis NEIGHBORHOOD AIDE Primary Care Provider [phone] Lian Parnell GAS PUMPING STATION HELPER Primary Care Provider [phone] Encounter Details Date Type Department Care Team (Late st Contact Info) Description 03/15/2020 Lab Requisition [facility] Pathology & [place] [address] Outr Resulting Lab, Provider Social History Tobacco [...] Procedure Name Priority Date/Time Associated Diagnosis Comments ACID-FAST SMEAR ONLY, OTHER Routine 03/15/2020 13:44 EDT documented in this encounter Results * ACID-FAST SMEAR ONLY, OTHER (03/15/2020 13:44 EDT) AFB Smear No Acid Fast Bacilli Seen 03/18/2020 15:01 EDT [facility] Tissue AXILLARY LYMPH NODE STRUCTURE / Unknown 03/15/2020 13:44 EDT 03/15/2020 22:57 EDT Provider Outr Resulting Lab MICROBIOLOGY - GENERAL ORDERABLES [facility] [address] [place] [address] documented in this encounter Visit Diagnoses Not on filedocumented in this encounter Care Teams Buffing And Polishing Wheel Repairer Relationship Specialty Start Date End Date Lynn Solis, NEIGHBORHOOD AIDE [address] [place] [address] PCP - General 05/28/14 09/15/21 Lian Parnell FNP [address] [place] [id number] PCP - General Family Medicine - Primary Care 09/16/21 CHARLENE URIOSTEGUI Pulmonary Disease 01/29/21 documented as of this encounter
--- OUTSIDE RECORDS SUMMARY | 2024-02-03 13:17 | XMS_ITS | Encounter Summary ---
Author Organization [facility] Address [address] [place] [address] Care Team Providers Care Concentrator Operator Name Role Phone Reji Merritt MD Primary Care Provider [phone] Reason for Visit * Reason Comments [facility] Clearance pt reports he is her e for [facility] clearance for ETOH abuse. Pt reports last drank 3 hrs ago Encounter Details Date Type Department Care Team (Late st Contact Info) Description 09/25/2010 14:09 EDT - 09/25/2010 16:05 EDT Emergency [facility] Emergency Department - [facility] [address] [place] [address] Lelo Mandujano PA-C [address] [place] [address] Emergency, MD Franky Alcohol addiction ([facility]) ([facility]) Discharge Disposition: Home or Self Care Social History Tobacco Use Types Packs/Day Years Used Date Smoking Tobacco: Every Day Cigarettes Alcohol Use Standard Drinks/Week Comments Yes 0 (1 standard drink = 0.6 oz pur e alcohol) Sex and Gender Information Value Date Recorded Sex Assigned at Not on file Gender Identity Male 11/20/2019 11:35 EDT Sexual Orientation Not on file documented as of this encounter Last Filed Vital Signs Vital Sign Reading Time Taken Comments Blood Pressure 136/86 09/25/2010 1415 EDT Pulse 113 09/25/2010 1415 EDT Temperature 35.4 ??C (95.7 ??F) 09/25/2010 1415 EDT Respiratory Rate 16 09/25/2010 1415 EDT Oxygen Saturation 97% 09/25/2010 1415 EDT Inhaled Oxygen Concentration - - Weight - - Height - - Body Mass Index - - documented in this encounter Discharge Instructions * Discharge Instructions* Lelo Mandujano PA - 09/25/2010 16:00 EDT To [facility],use albuterol inhaler as needed, start decreasing tobacco use. * Attachments The following attachments cannot be sent through Care Everywhere. * ACUTE ALCOHOL INTOXICATION: AFTER YOUR VISIT ([facility]) documented in this encounter Medications at Time of Discharge Medication Sig Dispensed Refills Start Date End Date albuterol (PROVENTIL HFA, VENTOLIN HFA) 90 mcg/Actuation inhaler Inhale 2 Puffs as directed every 4 hours. DIAZepam (VALIUM) 5 mg tablet Take 2 Tabs by mouth every 4 hours as needed for Anxiety. 20 Tab 0 09/25/2010 02/17/2013 levetiracetam (KEPPRA) 500 mg tablet Take 500 mg by mouth 2 times daily. 05/05/2013 phenytoin (DILANTIN) 100 mg ER capsule Take 500 mg by mouth at bedtime. 09/26/2010 documented as of this encounter Ordered Prescriptions Prescription Sig Dispensed Refills Start Date End Da te DIAZepam (VALIUM) 5 mg tablet Take 2 Tabs by mouth every 4 hours as needed for Anxiety. 20 Tab 0 09/25/2010 02/17/2013 documented in this encounter Discharge Disposition Disposition Code Departure Means Destination Comment s Home or Self Half-Way Pt ambulated out of dept in nad. documented in this encounter ED Notes * Rachel Grubbs RN - 09/25/2010 1604 EDT Pt ambulated out to waiting room in nad with steady gait. [facility] transport here for pt. * Rachel Grubbs RN - 09/25/2010 1544 EDT Pt medicated with Valium per order, pt ambulating independently in room with steady gait. * Rachel Grubbs RN - 09/25/2010 1535 EDT Albuterol neb started per order, pt states my breathing doesn't feel any different than usual. * Lelo Mandujano PA - 09/25/2010 1535 EDT DOS: 09/25/2010 Chief Complaint Patient presents with ??? [facility] Clearance pt reports he is here for [facility] clearance for ETOH abuse. Pt reports last drank 3 hrs ago The patient is a 45 y.o. male who presents today with [facility] Clearance The history is provided by the patient. Act 1 Clearance Primary symptoms include seizures (patient has a history of seizures unsure when his last one was unsure if related to his medicalcondition versus EtOH), agitation and intoxication. Primary symptoms include no confusion, no somnolence, no loss of consciousness, no weakness, no delusions, no hallucin ations, no self-injury and no violence. This is a recurrent problem. Suspected agents include alcohol. Associated symptoms include nausea. Pertinent negatives include no fever, no injury and no vomiting. Associated medical issues include addiction treatment and withdrawal syndrome. patient has beenusing alcohol for multiple years has been in and out of alcohol treatment longest sobriety 2 years.this episode etoh duration month. last intake 4 hours. patient states has a history of COPD has inhalers which she has brought to [facility], he has inhalers there. Review of Systems Constitutional: Positive for activity change and unexpected weight change (Patient has no appetite). Negative for fever and fatigue. Appetite change: patient states not as active since drinking. HENT: Negative. Eyes: Negative. Respiratory: Negative. Negative for cough, choking, chest tightness and shortness of breath. Cardiovascular: Negative. Gastrointestinal: Positive for nausea. Negative for vomiting, abdominal pain, diarrhea and constipation. Musculoskeletal: Negative. Skin: Negative. Negative for rash. Neurological: Positive for seizures (patient has a history of seizures unsure when his last one wasunsure if related to his medicalcondition versus EtOH). Negative for tremors, loss of consciousness, syncope, speech difficulty, weakness and light-headedness. Psychiatric/Behavioral: Positive for agitation. Negative for hallucinations, confusion and self-injury. All other systems reviewed and are negative. Past Medical History Diagnosis Date ??? ETOH abuse ??? Seizures No past surgical history on file. No Known Allergies History Substance Use Topics ??? Smoking status: Current Everyday Smoker -- 1.5 packs/day ??? Smokeless tobacco: Not on file ??? Alcohol Use: Yes No family history on file. Vital Signs Temp: 35.4 ??C (95.7 ??F) Temp src: Tympanic Pulse: 113 Resp: 16 SpO2: 97 % BP: 136/86 mmHg O2 Device: None (Room air) Physical Exam Nursing note and vitals reviewed. Constitutional: He is oriented to person, place, and time. No distress. HENT: Head: Normocephalic. Right Ear: External ear normal. Left Ear: External ear normal. Mouth/Throat: No oropharyngeal exudate. Eyes: Conjunctivae and extraocular motions are normal. Pupils are equal, round, and reactive to light. Right eye exhibits no discharge. Left eye exhibits no discharge. No scleral icterus. Neck: Normal range of motion. Neck supple. Cardiovascular: Normal rate, regular rhythm and normal heart sounds. Exam reveals no friction rub. No murmur heard. Pulmonary/Chest: Effort normal. No respiratory distress. He has wheezes (the patient with inspiratory and expiratory wheezesminimal change with coughing.). He has no rales. He exhibits no tenderness. Abdominal: Soft. Bowel sounds are normal. He exhibits no distension. No tenderness. He has no rebound. Musculoskeletal: Normal range of motion. Neurological: He is alert and oriented to person, place, and time. Skin: Skin is warm and dry. No rash noted. He is not diaphoretic. Psychiatric: He has a normal mood and affect. Radiology orders: None Procedures ED Course: A medical screening exam was performed. Patient states breathing improved after albuterol med. [facility] for [facility] detoxification Disposition: No disposition on file The patient's pain was managed to an adequate level weighing risk vs. benefit of further medications. Upon departure from the Emergency Department, the patient's pain was 0 on a zero to ten scale. Condition at departure from the Emergency Department: Improved Discharge Prescriptions New Prescriptions DIAZEPAM (VALIUM) 5 MG TABLET Take 2 Tabs by mouth every 4 hours as needed for Anxiety. MDM Number of Diagnoses or Management Options Diagnosis management comments: 3 No diagnosis found. PCP: REJI MERRITT MD 09/25/2010 15:35 * Rachel Grubbs RN - 09/25/2010 1529 EDT MADELAINE Mitchell at bedside for eval. documented in this encounter Miscellaneous Notes * Scanned Note-Null - Inpatient, Physician - 09/25/2010 0000 EDT documented in this encounter Plan of Treatment Not on file documented as of this encounter Visit Diagnoses Diagnosis Alcohol addiction ([facility]) Other and unspecified alcohol dependence, unspecified drinking behavior documented in this encounter Administered Medications Inactive Administered Medications - up to 3 most recent administrations Medication Order MAR Action Action Date Dose Rate Site albuterol (PROVENTIL) 2.5 mg /3 mL (0.083 %) nebulizer solution 2.5 mg 2.5 mg, nebulization, NOW X1, 1 dose, On Kamila 09/25/10 at 1600, STAT Given 09/25/2010 15:35 EDT 2.5 mg DIAZepam (VALIUM) tablet 5 mg 5 mg, oral, NOW X1, 1 dose, On Kamila 09/25/10 at 1600, STAT Given 09/25/2010 15:43 EDT 5 mg documented in this encounter Historical Medications * This list may reflect changes made after this encounter. Medication Sig Dispensed Refills Start Date End Date levetiracetam (KEPPRA) 500 mg tablet Take 500 mg by mouth 2 times daily. 05/05/2013 added in this encounter Active and Recently Administered Medications Times are shown in EDT. Scheduled Medication Order 09/23/2010 09/24/2010 09/25/2010 albuterol (PROVENTIL) 2.5 mg /3 mL (0.083 %) nebulizer solution 2.5 mg (COMPLETED) 2.5 mg, nebulization, NOW X1, 1 dose, On Kamila 11 at 1600, STAT 1535 (Given - Provid er: Rachel Grubbs RN) DIAZepam (VALIUM) tablet 5 mg (COMPLETED) 5 mg, oral, NOW X1, 1 dose, On Kamila 09/25/10 at 1600, STAT 1543 (Given - Provid er: Rachel Grubbs RN) documented in this encounter Care Teams Concentrator Operator Relationship Specialty Start Date End Date Reji Merritt MD [address] [place] [address] PCP - General 09/25/10 09/25/10 documented as of this encounter
--- OUTSIDE RECORDS SUMMARY | 2024-02-03 13:17 | XMS_ITS | Encounter Summary ---
Author Organization [facility] Address [address] [place] [address] Care Team Providers Care Intensive Care Unit Nurse Name Role Phone Mitchell Del Rosario MD Primary Care Provider Mitchell Bragg MD Primary Care Provider Braeden johnson Encounter Details Date Type Department Care Team (Late st Contact Info) Description 10/09/2007 Office Visit [facility] [address] [place] [address] Alfredo Pastor PA-C [address] [place], [place] [id number] Social History Tobacco Use Types Packs/Day Years Used Date Smoking Tobacco: Never Assessed Sex and Gender Information Value Date Recorded Sex Assigned at Not on file Gender Identity Male 11/20/2019 11:35 EDT Sexual Orientation Not on file documented as of this encounter Progress Notes * Alfredo Pastor PA - 07/19/2009 1505 EST Department - Physician Summary Registration Date/Time: 10/09/2007 23:51 Arrived- By private vehicle. Historian- patient. HISTORY OF PRESENT ILLNESS Chief Complaint: Wants to stop drinking. Duration of substance abuse- years. Substances abused: Last drink less than 12 hours ago. He has had mild tremors. No fever, chills, nausea, vomiting or abdominal pain. No seizure. symptoms are described as moderate. No injuries noted. Patient has not had similar symptoms previously. Not recently seen/assessed. REVIEW OF SYSTEMS No fever, chills, eye irritation or ear pain. No nasal congestion or discharge, chest pain, nausea or vomiting. No abdominal pain, constipation, neck pain, back pain or joint pain. No headache. PAST HISTORY See nurses notes. History ofalcoholism. Medications: The patient's medications have been reviewed. Allergies: The patient's allergies have been reviewed. SOCIAL HISTORY Alcohol use. ADDITIONAL NOTES The nursing notes have been reviewed. PHYSICAL EXAM Appearance: Alert. No acute distress. Vital Signs: Have been reviewed. Head: Head atraumatic. Neck: Normal inspection. Neck supple. CVS: Normal heart rate and rhythm. Respiratory: No respiratory distress. Abdomen: Abdomen soft and nontender. Skin: Normal skin color. Extremities: No lower extremity edema. Neuro: No alteration in mental status. PROGRESS AND PROCEDURES Patient/family counseled. Additional history sought. Old medical records ordered. ED Attending on duty and available for supervision: Isidro Fox. Disposition: Condition: good. Discharged home. CLINICAL IMPRESSION Alcohol withdrawal. INSTRUCTIONS Warnings: GENERAL WARNINGS: Return or contact your physician immediately if your condition worsens or changesunexpectedly, if not improving as expected, or if other problems arise. Follow-up: Follow up with your doctor. Call for the next available appointment. (Electronically signed by Vonda Ocasio 10/10/2007 2:16) Department - Nursing SummaryDate/Time: 10/09/2007 23:51 TRIAGE Initial Assessment Triage time 23:52. Acuity: LEVEL 4. BP: 105 / 80. HR: 114. RR: 20. Temp: 35.9 tympanic. Alert. --2355 Amanda Barnes R.N.. Medications (dilantin 400mgqd, visteril 25mg bid prn). --2355 Amanda Barnes R.N.. Allergies No known drug allergies. --2355 Amanda Barnes R.N.. History Chief Complaint: (detox-from alcohol). This is a recurrent problem. Pain level now: 0/10. Treatment MOUNTER CLARINETS: None. PAST HX: (seizure when coming off of drinking, insomnia). SOCIAL HX: Cigarette smoker: 1-2 packs per day. Alcohol use; consumes a large amount of beer daily.Patient is a longstanding alcoholic (last drink 1/2 hours ago--drinks at least 18 a day). Functional assessment: no impairments noted. The nutritional risk assessment revealed no deficiencies. No report of abuse. Arrived by private vehicle and accompanied by family. Historian: patient. --2355 Amanda Barnes R.N.. Interventions To waiting room. --2355 Amanda Barnes R.N.. NURSING PROGRESS NOTES ED physician at the patient's bedside (Dr. Pastor). --36 Cande Barnes R.N. Family at bedside. --36 Cande Barnes R.N. (Dr. Pastor talking to [facility].). --39 Cande Barnes R.N. VALIUM 10 mg Prepack X 12 tabs. Rx 1244 PO. Sedative drug warning given to the patient. . --139 Cande Barnes R.N.. DISPOSITION / DISCHARGE BP: 110/73. HR: 100. RR: 18. Patient reports pain level on departure as 0/10. Reviewed warnings (General). Patient, family verbalized understanding. Written instructions provided in Guamanian. The patient was discharged ([facility]) and accompanied by Son & girlfriend. The patient left the EmergencyDepartment ambulatory and via private vehicle. Driving (Son & girlfriend). ([facility] notified about patient, states it is okay for family to transport pt to center. Son given discharge information/Valium prepack in signed/sealed envelope to give to [facility] staff. Son verbalizes understanding.). --014 Cande Barnes R.N.. Amanda Barnes R.N. Locked/Released at 10/10/2007 3:20 by Cande Barnes R.N. documented in this encounter Plan of Treatment Not on file documented as of this encounter Visit Diagnoses Not on filedocumented in this encounter Care Teams Intensive Care Unit Nurse Relationship Specialty Start Date End Date Mitchell Del Rosario MD PCP - General 01/08/09 09/24/10 Mitchell Del Rosario MD PCP - General 11/05/08 01/07/09 documented as of this encounter
--- OUTSIDE RECORDS SUMMARY | 2024-02-03 13:17 | XMS_ITS | Encounter Summary ---
Author Organization [facility] Address [address] [place] [address] Care Team Providers Care Dairy Equipment Specialist Name Role Phone Oly Nieto MD Primary Care Provider Braeden johnson Reason for Visit * Reason Comments Alcohol Problem Encounter Details Date Type Department Care Team (Late st Contact Info) Description 01/08/2009 2:11 EDT - 01/08/2009 7:40 EDT Emergency [facility] Emergency Department - [address] [address] Jaxon Mendez MD [address] [place] [address], [address] [place] [address] Hubert Jarvis MD Emergency, MD Franky Chronic Alcohol Abuse Discharge Disposition: Home or Self Care Social [...] Sign Reading Time Taken Comments Blood Pressure 137/87 01/08/2009726 EDT Pulse 107 01/08/2009726 EDT Temperature 36.9 ??C (98.4 ??F) 01/08/2009 0250 EDT Respiratory Rate 16 01/08/2009726 EDT Oxygen Saturation 92% 01/08/2009726 EDT Inhaled Oxygen Concentration - - Weight - - Height - - Body Mass Index - - documented in this encounter Discharge Instructions * Discharge Instructions* Jaxon Mendez MD - 01/08/2009 7:23 EDT Images from the original note were not included. Use the Valium 2 tablets (10 mg) every 6 hours to prevent progression of withdrawal symptoms. Call [facility] frequently at [phone] to see if a bed becomes available. [facility] Patient Instructions Alcohol Detoxification and Withdrawal: After Your Visit Your Care Instructions If you drink alcohol regularly and then suddenly stop, you may go through some physical and emotional problems while the alcohol clears out of your system. Clearing the alcohol from your body is called detoxification, or detox. Physical and emotional problems that may happen during detox are calledwithdrawal. Symptoms of withdrawal can be scary and dangerous. Mild symptoms include nausea and vomiting, sweating, shakiness, and intense worry. Severe symptoms include being confused and irritable, feeling things on your body that are not there, seeing or hearing things that are not there, and trembling. Youmay even have seizures. If your symptoms become severe you must see a doctor. People who drink large amounts of alcohol should not try to detox at home. A person can of severe alcohol withdrawal. Symptoms of alcohol withdrawal may begin from 4 to 12 hours after you stop drinking. But they may not start for several days after the last drink. They can last a few days. It is hard to stop drinking. But when you have cleared the alcohol from your system, you will be able to start the next part of your life, free from the burden of being addicted. Follow-up care is a hill part of your treatment and safety. Be sure to make and go to all appointments, and call your doctor if you are having problems. It???s also a good idea to know your test results and keep a list of the medicines you take. How can you care for yourself at home? ?? Before you stop drinking, talk to your doctor about how you plan to stop. Be sure to be completely honest with him or her about how much you have been drinking. Your doctor will figure out whetheryou need to detox in a supervised medical center. Take your medicines exactly as prescribed. Call your doctor if you think you are having a problem with your medicine. Make sure someone you trust is with you the whole time. Have friends and family members take turns staying with you until you are done with detox. Put a list of emergency numbers near the phone. This should include your doctor, the police, the nearest hospital and emergency room, and neighbors who can help if needed. Make sure all alcohol is removed from the house before you start. This includes beverages as well as medicines, rubbing alcohol, and certain flavorings like vanilla extract. Keep drinking buddies away during the time you are going through detox. Make your surroundings calm. Soft lights, soft music, and a comfortable place to sit or lie down can help make the process easier. Drink lots of fluids and eat snacks such as fruit, cheese and crackers, and pretzels. Foods high incarbohydrate may help reduce the craving for alcohol. Understand that detox is going to be hard. Keep in mind that the people watching over you during detox are there to help. Explain to them before you start that you may not act like yourself until detox is finished. Consider joining a support group such as Alcoholics Anonymous. Sharing your experiences with other people who face similar challenges may help you feel less overwhelmed. When should you call for help? Call 911 anytime you think you may need emergency care. For example, call if: ?? You feel you cannot stop from hurting yourself or someone else. You vomit many times and cannot stop. You vomit blood or what looks like coffee grounds. You have trouble breathing or are breathing very fast. Your heart beats more than 120 times a minute and will not slow down. You have chest pain. You have a seizure. You see or feel things that are not there (hallucinate). If you are caring for someone who is going through detox, call if: ?? The person passes out (loses consciousness). The person sees or feels things that are not there and sees or hears the same things many times. The person is very agitated and will not calm down. The person becomes violent or threatens to be violent. The person has a seizure. Call your doctor now or seek immediate medical care if: ?? You have a high fever. You have severe belly pain. You are very shaky. Watch closely for changes in your health, and be sure to contact your doctor if: ?? You do not get better as expected. Where can you learn more? Go to www.healthwise.net/fa Enter D051 in the search box to learn more about Alcohol Detoxification and Withdrawal: After YourVisit. ?? 2005 - 2008 [employer]. Care instructions adapted under license by [facility], [facility] . This care instruction is for use with your licensed healthcare professional. If you have questions about a medical condition or this instruction, always ask your healthcare professional. [employer] disclaims any warranty or liability for your use of this information. documented in this encounter Medications at Time of Discharge Medication Sig Dispensed Refills Start Date End Date albuterol (PROVENTIL HFA, VENTOLIN HFA) 90 mcg/Actuation inhaler Inhale 2 Puffs as directed every 4 hours. phenytoin (DILANTIN) 100 mg ER capsule Take 500 mg by mouth at bedtime. 09/26/2010 documented as of this encounter Discharge Disposition Disposition Code Departure Means Destination Home or Self Care Taxi Home documented in this encounter ED Notes * Kartik Neff - 01/08/2009 0554 EDT Pt ambulated to the bathroom on his own. * Cee Tsai RN - 01/08/2009 0349 EDT Pt now resting in bed, no more shakiness. O2 sat placed on pt. * Jaxon Mendez MD - 01/08/2009 0254 EDT DOS: 01/08/2009 Chief Complaint Patient presents with ??? Alcohol Problem Patient is a 43 y.o. male presenting with alcohol problem. The history is provided by the patient. Alcohol Problem Primary symptoms include seizures and agitation (with tremor). Primary symptoms include no confusion and no hallucinations. The current episode started 3 to 5 hours ago (Patient had seizure 01/07 afternoon, was seen at [facility] ED where dilantin level low, so received dilantin. Patient desired detox so came here for medical evaluation. ). The problem has been gradually worsening. Suspected agents include alcohol. Pertinent negatives include no fever and no vomiting. Seizure disorder seperate from withdrawal. Review of Systems Constitutional: Negative for fever, chills and unexpected weight change. HENT: Negative for nosebleeds and neck pain. Eyes: Negative for visual disturbance. Respiratory: Negative for cough and shortness of breath. Cardiovascular: Negative for chest pain. Gastrointestinal: Negative for vomiting, abdominal pain and blood in stool. Genitourinary: Negative for dysuria. Musculoskeletal: Negative for back pain. Neurological: Positive for tremors and seizures. Negative for syncope and headaches. Psychiatric/Behavioral: Positive for agitation (with tremor). Negative for hallucinations and confusion. Past Medical History Diagnosis Date ??? ETOH Abuse ??? Seizures History reviewed. No pertinent past surgical history. No Known Allergies History Substance Use Topics ??? Tobacco Use: Yes -- 1.5 packs/day ??? Alcohol Use: Yes History reviewed. No pertinent family history. BP 117/77 Pulse 108 Temp(Src) 36.9 ??C (98.4 ??F) (Oral) Resp 18 Physical Exam Radiology orders: None Procedures Consult orders: None ED Course: Patient with tremor improved after treatment in ED, desires further detox but currently no bed at [facility]. Will d/c to his uncle's home in [facility] with plan to enter [facility]. MDM Number of Diagnoses and Management Options Chronic Alcohol Abuse: Amount and/or Complexity of Data Reviewed Clinical lab tests: ordered and reviewed Review and summarize past medical records: yes ([facility] ED) Discuss the patient with other providers: yes ([facility]- personnel) No diagnosis found. PCP: OLY NIETO MD 01/08/2009 2:54 AM * Kaushal Rivera - 01/08/2009 0248 EDT Pt had his last drink 8 hours ago. He wants to go to detox. [facility] will not [facility] a bedtonight documented in this encounter Miscellaneous Notes * Scanned Note-Null - Inpatient, Physician - 01/10/2009 1246 EDT documented in this encounter Plan of Treatment Not on file documented as of this encounter Procedures Procedure Name Priority Date/Time Associated Diagnosis Comments POCT ALCOHOL BREATH TEST STAT 01/08/2009 3:17 EDT documented in this encounter Results * POCT ALCOHOL BREATH TEST (01/08/2009 3:17 EDT) Ethanol Lvl 0.22 01/08/2009 3:17 EDT Jaxon Mendez MD POINT OF CARE TEST ORDERABLES documented in this encounter Visit Diagnoses Diagnosis Chronic alcohol abuse Alcohol abuse, unspecified documented in this encounter Administered Medications Inactive Administered Medications - up to 3 most recent administrations Medication Order MAR Action Action Date Dose Rate Site diazepam (VALIUM) tablet 20 mg 20 mg, oral, NOW X1, 1 dose, On Wed01/08/09 at 0315, STAT Given 01/08/2009 3:16 EDT 20 mg diazepam (VALIUM) tablet 20 mg 20 mg, oral, NOW X1, 1 dose, On Wed01/08/09 at 0415, STAT Given 01/08/2009 6:17 EDT 20 mg Diazepam 5 mg??Tab STARTER PACK 1 Package, oral, NOW X1, 1 dose, On Wed01/08/09 at 0745, STAT Given 01/08/2009 7:35 EDT 1 Package documented in this encounter Discontinued Medications Medication Sig Discontinue Reason Start Date End Da te albuterol (ACCUNEB) 0.63 mg/3 mL nebulizer solution Take 0.63 mg by nebulization every 4 hours as needed for Wheezing. Error 01/08/2009 documented as of this encounter Historical Medications * This list may reflect changes made after this encounter. Medication Sig Dispensed Refills Start Date End Date albuterol (PROVENTIL HFA, VENTOLIN HFA) 90 mcg/Actuation inhaler Inhale 2 Puffs as directed every 4 hours. albuterol (ACCUNEB) 0.63 mg/3 mL nebulizer solution Take 0.63 mg by nebulization every 4 hours as needed for Wheezing. 01/08/2009 phenytoin (DILANTIN) 100 mg ER capsule Take 500 mg by mouth at bedtime. 09/26/2010 added in this encounter Active and Recently Administered Medications Times are shown in EDT. Scheduled Medication Order 01/06/2009 01/07/2009 01/08/2009 diazepam (VALIUM) tablet 20 mg (COMPLETED) 20 mg, oral, NOW X1, 1 dose, On Wed01/08/09 at 0315, STAT 0316 (Given - Provid er: Cee Tsai RN) diazepam (VALIUM) tablet 20 mg (COMPLETED) 20 mg, oral, NOW X1, 1 dose, On Wed01/08/09 at 0415, STAT 0617 (Given - Provid er: Cee Tsai RN - Comment: Per Clause) Diazepam 5 mg??Tab STARTER PACK (COMPLETED) 1 Package, oral, NOW X1, 1 dose, On Wed01/08/09 at 0745, STAT 0735 (Given - Provid er: Viviana Galo RN - Comment: #[id number]) documented in this encounter Orders Diet Count Last Ordered Date First Orde red Date DIET NPO TIME SPECIFIED 1 01/08/2009 documented in this encounter Care Teams Dairy Equipment Specialist Relationship Specialty Start Date End Date Oly Nieto MD PCP - General 01/08/09 09/24/10 documented as of this encounter
--- OUTSIDE RECORDS SUMMARY | 2024-02-03 13:17 | XMS_ITS | Encounter Summary ---
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 Medications: Lamotrigine, levetiracetam and pregabalin are discontinued on admission with last dose2 APR 2013 in AM Medication Route Frequency ??? acetaminophen (TYLENOL) tablet 650 mg oral Q4H PRN ??? albuterol (VENTOLIN HFA) inhaler 2 Puff inhalation QID ??? albuterol (VENTOLIN HFA) inhaler 2 Puff inhalation Q4H PRN ??? bisacodyl (DULCOLAX) EC tablet 10 mg oral Daily PRN ??? calcium carbonate (TUMS) 200 mg calcium (500 mg) per chewable tablet tablet, chewable 1-2 Tab oral QID PRN ??? cholecalciferol (Vitamin D3) tablet 1,000 Units oral DAILY ??? cyclobenzaprine (FLEXERIL) tablet 10 mg oral TID ??? enoxaparin (LOVENOX) injection 40 mg subcutaneous DAILY ??? famotidine (PEPCID) tablet 40 mg oral QHS ??? nicotine (NICODERM CQ) 21 mg/24 hr patch 1 Patch transdermal DAILY ??? ondansetron (PF) (ZOFRAN) injection 2-4 mg intravenous Q6H PRN ??? QUEtiapine (SEROQUEL) tablet 100 mg oral QHS ??? senna (SENOKOT) tablet 1-2 Tab oral BID PRN ??? tiotropium (SPIRIVA) 18 mcg inhalation capsule 18 mcg inhalation DAILY Technical Description: Continuous digital video-digital electroencephalographic monitoring is performed in the epilepsy monitoring unit. Silver/silver chloride EEG electrodes are placed according to the International 10-20system as well as anterior temporal electrodes, a CPz recording reference and FCz ground contract. An ECG channel is also monitored. Caregivers are encouraged to maintain an event diary and to press and Event Button in the event of a seizure-like spell (Target Event). The entire EEG dataset is reviewed by the attending physician. No pain assessment for this procedure is necessary. Findings: 1. The monitoring period begins 01 MAY 2013 and see earlier reports for study details. This report describes findings from 03 MAY 2013 at 08:54 until Apr at 08:49. 2. No target paroxysmal events reported by patient or caregivers. When I examine him on Apr at 11:24 he describes feeling very anxious, nervous and overall unwell. He is tremulous in his arms intermittently though with clear cognition. His left ankle inverts at times though he is able to move hisankle. These symptoms persists for about 10 min, often abating and then increasing. These movementsare not present prior to or after my visit with him and do not recur. There is no change in his waking EEG pattern during this time. 3. No seizures or interictal epileptiform discharges recorded. Impression: Normal video-EEG. Clinical Correlation: No target events captured. No interictal epileptiform discharges recorded during this study to help support a diagnosis of epilepsy. Video-EEG monitoring with abrupt discontinuation of his three antiseizure agents will continue and will be reported when available. DIANA ALMENDAREZ MD Diplomate, Citizen Of [place] Board of Psychiatry and Neurology - Neurology with added qualifications in clinical neurophysiology. 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 Medications: Lamotrigine, levetiracetam and pregabalin are discontinued on admission with last dose2 APR 2013 in AM Medication Route Frequency ??? acetaminophen (TYLENOL) tablet 650 mg oral Q4H PRN ??? albuterol (VENTOLIN HFA) inhaler 2 Puff inhalation QID ??? albuterol (VENTOLIN HFA) inhaler 2 Puff inhalation Q4H PRN ??? bisacodyl (DULCOLAX) EC tablet 10 mg oral Daily PRN ??? calcium carbonate (TUMS) 200 mg calcium (500 mg) per chewable tablet tablet, chewable 1-2 Tab oral QID PRN ??? cholecalciferol (Vitamin D3) tablet 1,000 Units oral DAILY ??? cyclobenzaprine (FLEXERIL) tablet 10 mg oral TID ??? enoxaparin (LOVENOX) injection 40 mg subcutaneous DAILY ??? famotidine (PEPCID) tablet 40 mg oral QHS ??? nicotine (NICODERM CQ) 21 mg/24 hr patch 1 Patch transdermal DAILY ??? ondansetron (PF) (ZOFRAN) injection 2-4 mg intravenous Q6H PRN ??? QUEtiapine (SEROQUEL) tablet 100 mg oral QHS ??? senna (SENOKOT) tablet 1-2 Tab oral BID PRN ??? tiotropium (SPIRIVA) 18 mcg inhalation capsule 18 mcg inhalation DAILY Technical Description: Continuous digital video-digital electroencephalographic monitoring is performed in the epilepsy monitoring unit. Silver/silver chloride EEG electrodes are placed according to the International 10-20system as well as anterior temporal electrodes, a CPz recording reference and FCz ground contract. An ECG channel is also monitored. Caregivers are encouraged to maintain an event diary and to press and Event Button in the event of a seizure-like spell (Target Event). The entire EEG dataset is reviewed by the attending physician. No pain assessment for this procedure is necessary. Findings: 1. The monitoring period begins 01 MAY 2013 and see earlier reports for study details. This report describes findings from 02 MAY 2013 at 07:49 until Apr at 08:54. 2. No target paroxysmal events reported by patient or caregivers. Patient has episode of bilateral hand numbness at around 13:30. There is no change in the waking EEG pattern. 3. No seizures or interictal epileptiform discharges recorded. Impression: Normal video-EEG. Clinical Correlation: No target events captured. No interictal epileptiform discharges recorded during this study to help support a diagnosis of epilepsy. Video-EEG monitoring with abrupt discontinuation of his three antiseizure agents will continue and will be reported when available. Nhan Mendez MD Clinical Neurophysiology Fellow 9:26 05/03/2013 I personally reviewed the study and the fellow's interpretation in detail, edited the above report and agree with the findings documented. DIANA ALMENDAREZ MD Diplomate, Citizen Of [place] Board of Psychiatry and Neurology - Neurology with added qualifications in clinical neurophysiology. 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 Medications: Lamotrigine, levetiracetam and pregabalin are discontinued on admission with last dose01 MAY 2013 in AM Medication Route Frequency ??? acetaminophen (TYLENOL) tablet 650 mg oral Q4H PRN ??? albuterol (VENTOLIN HFA) inhaler 2 Puff inhalation QID ??? albuterol (VENTOLIN HFA) inhaler 2 Puff inhalation Q4H PRN ??? bisacodyl (DULCOLAX) EC tablet 10 mg oral Daily PRN ??? calcium carbonate (TUMS) 200 mg calcium (500 mg) per chewable tablet tablet, chewable 1-2 Tab oral QID PRN ??? cholecalciferol (Vitamin D3) tablet 1,000 Units oral DAILY ??? cyclobenzaprine (FLEXERIL) tablet 10 mg oral TID ??? enoxaparin (LOVENOX) injection 40 mg subcutaneous DAILY ??? famotidine (PEPCID) tablet 40 mg oral QHS ??? nicotine (NICODERM CQ) 21 mg/24 hr patch 1 Patch transdermal DAILY ??? ondansetron (PF) (ZOFRAN) injection 2-4 mg intravenous Q6H PRN ??? QUEtiapine (SEROQUEL) tablet 100 mg oral QHS ??? senna (SENOKOT) tablet 1-2 Tab oral BID PRN ??? tiotropium (SPIRIVA) 18 mcg inhalation capsule 18 mcg inhalation DAILY Technical Description: Continuous digital video-digital electroencephalographic monitoring is performed in the epilepsy monitoring unit. Silver/silver chloride EEG electrodes are placed according to the International 10-20system as well as anterior temporal electrodes, a CPz recording reference and FCz ground contract. An ECG channel is also monitored. Caregivers are encouraged to maintain an event diary and to press and Event Button in the event of a seizure-like spell (Target Event). The entire EEG dataset is reviewed by the attending physician. No pain assessment for this procedure is necessary. Findings: 1. The monitoring period begins 01 MAY 2013 at 1433 and ends Apr at 07:46. 2. No paroxysmal events reported by patient or caregivers. 3. No seizures or interictal epileptiform Discharges recorded. Impression: Normal video-EEG. Clinical Correlation: No target events captured. No interictal epileptiform discharges recorded during this study to help support a diagnosis of epilepsy. Video-EEG monitoring with abrupt discontinuation of his three antiseizure agents will continue and will be reported when available. Nhan Mendez MD Clinical Neurophysiology Fellow 9:31 05/02/2013 I personally reviewed the study and the fellow's interpretation in detail, edited the above report and agree with the findings documented. DIANA ALMENDAREZ MD Diplomate, Citizen [place] Board of Psychiatry and Neurology - Neurology with added qualifications in clinical neurophysiology. 11:13 05/02/2013 documented in this encounter Miscellaneous Notes * Plan of Care - Leo Perez RN - 05/04/2013 2155 EST Problem: SEIZURE PRECAUTIONS Goal: Patient Safety will be Maintained in the Event of a Seizure Focus: EMU Monitoring Data: Day 3 for EMU monitoring. Patient receiving AEDs. Action: Seizure precautions ongoing. Assured siderails padded, suction set up and functioning properly, and oxygen readily available. Constant observation provided. Response: No seizure activity witnessed up to present time. Will continue to monitor. Leo Perez RN 05/04/2013 21:51 * Plan of Care - Keyla Britton - 05/04/2013 1831 EST Problem: SEIZURE PRECAUTIONS Goal: Patient Safety will be Maintained in the Event of a Seizure Data: Pt alert and oriented, pt denies any episodes or feeling of an episode coming on. Pt states he is anxious and feels like his nerves are really bad. Action: MD Bolivar aware of pt's anxiety. wants to hold off on meds d/t masking of episode symptoms. Pt comforted and room stimulation decreased. Response: Pt able to rest comfortably. ordered ativan PRN. Pt will continue to be monitored. KEYLA BRITTON RN 05/04/2013 18:28 * Plan of Care - Leo Perez RN - 05/04/2013 0530 EST Problem: SEIZURE PRECAUTIONS Goal: Patient Safety will be Maintained in the Event of a Seizure Focus: EMU Monitoring Data: Day 3 for EMU monitoring. Patient not receiving AEDs.Has been compliant with orders not to sleep overnight. Action: Seizure precautions ongoing. Assured siderails padded, suction set up and functioning properly, and oxygen readily available. Constant observation provided. Response: No signs or symptoms of spells or seizures witnessed. Monitoring continues. Leo Perez RN 05/04/2013 5:24 * Plan of Care - Catrina Sandoval RN - 05/03/2013 1628 EST Problem: SEIZURE PRECAUTIONS Goal: Patient Safety will be Maintained in the Event of a Seizure Focus: EMU Monitoring Data: Day 3 for EMU monitoring. Patient not receiving AEDs. Sleep deprivation in effect. Action: Seizure precautions ongoing. Assured siderails padded, suction set up and functioning properly, and oxygen readily available. Constant observation provided. Response: Pt reports having an episode earlier in the day observed by Dr. Almendarez. Catrina Sandoval RN 05/03/2013 16:27 * Plan of Care - Leo Perez RN - 05/03/2013 0133 EST Problem: SEIZURE PRECAUTIONS Goal: Patient Safety will be Maintained in the Event of a Seizure Focus: EMU Monitoring Data: Day 2 for EMU monitoring. Patient receiving AEDs. Action: Seizure precautions ongoing. Assured siderails padded, suction set up and functioning properly, and oxygen readily available. Constant observation provided. Response: No seizure activity noted. Will continue to monitor. Leo Perez RN 05/03/2013 1:31 * Plan of Care - Alisha Molina - 05/02/2013 1809 EST Problem: NEUROLOGICAL STATUS Goal: Mental status/cognition is maintained/returned to baseline Focus: EMU Monitoring Data: Day 1 for EMU monitoring. Patient not receiving AEDs. Action: Seizure precautions ongoing. Assured siderails padded, suction set up and functioning properly, and oxygen readily available. Constant observation provided. Response: No episodes at this time. Patient complained of headache and numbness in fingers. Pizzininotified. Patient given medication for pain - See eMAR. Alisha Molina RN 05/02/2013 18:07 * Plan of Care - Alisha Molina - 05/02/2013 1121 EST Problem: PAIN Goal: Patient???s pain/discomfort is manageable/tolerable Nursing Pain Note D: At 0830 patient c/o 6/10. Pain located in the Head. A: Patient receiving PRN medications. See MAR. Provided the following non- pharmacologic interventions: rest. R: At 1005 reports pain 5/10. Verbalized that pain is uncontrolled. Katt CORRALES notified of pain. Will continue to monitor and adjust interventions as necessary. Alisha Molina RN 05/02/2013 11:19 * Plan of Care - Jennifer Welch RN - 05/02/2013 0358 EST Problem: NEUROLOGICAL STATUS Goal: Mental status/cognition is maintained/returned to baseline Outcome: Met This Shift Data: pt a&ox3, MENDENHALL's equally (5/5 strength), pt on EMU monitoring. Action: Q4 hour neuro checks, Q1 hour safety checks, collaborated with sitter to provide safe environment. Response: No changes from baseline, no episodes noted overnight. Will CTM. Jennifer Welch RN 05/02/2013 3:46 * Plan of Care - Catrina Sandoval RN - 05/01/2013 3859 EST Problem: HOSPITAL ORIENTATION/SAFETY Goal: Oriented To Hospital Environment Focus: EMU Monitoring Data: Day 1 (day of admission) for EMU monitoring. Patient not receiving AEDs. Action: Seizure precautions ongoing. Assured siderails padded, suction set up and functioning properly, and oxygen readily available. Constant observation provided. Pt oriented to room, floor and plan of care. Response: No events as of yet. Pt aware of and compliant with plan of care. Catrina Sandoval RN 05/01/2013 17:28 documented in this encounter Plan of Treatment Pending Results Name Type Priority Associated Diagnoses Date /Time OUTSIDE IMAGES - CT NEURO Imaging 05/05/2013 13:44 EST documented as of this encounter Procedures Procedure Name Priority Date/Time Associated Diagnosis Comments MR HEAD W/WO CONTRAST 05/05/2013 11:59 EST DRUG SCREEN 6 Routine 05/01/2013 15:58 EST SCREENING GLUCOSE Routine 05/01/2013 15: 44 EST DIFFERENTIAL Routine 05/01/2013 15:44 EST LEVETIRACETAM, SERUM (KEPPRA) Routine 05/01/2013 15:44 EST LAMOTRIGINE Routine 05/01/2013 15:44 EST COMPLETE BLOOD COUNT Routine 05/01/2013 15:44 EST COMPLETE BLOOD COUNT AND DIFFERENTIAL Routine 05/01/2013 15:44 EST BUN Routine 05/01/2013 15:44 EST ALT Routine 05/01/2013 15:44 EST AST Routine 05/01/2013 15:44 EST TSH Routine 05/01/2013 15:44 EST PHOSPHORUS Routine 05/01/2013 15:44 EST MAGNESIUM Routine 05/01/2013 15:44 EST LDH Routine 05/01/2013 15:44 EST FOLATE Routine 05/01/2013 15:44 EST VITAMIN B12 Routine 05/01/2013 15:44 EST CREATININE Routine 05/01/2013 15:44 EST CALCIUM Routine 05/01/2013 15:44 EST ETHANOL, BLOOD Routine 05/01/2013 15:44 EST LIPID PROFILE (INCLUDES CHOLESTEROL, TRIGLYCERIDES, HDL, LDL) Routine 05/01/2013 15:44 EST ELECTROLYTES Routine 05/01/2013 15:44 EST documented in this encounter Results * MR HEAD W/WO CONTRAST (05/05/2013 11:59 EST) Anatomical Region Laterality Modality Other 05/05/2013 11:5 9 EST 05/05/2013 16:27 EST Narrative 05/05/2013 16:27 EST MRI HEAD WITH AND WITHOUT CONTRAST May 05, 2013 Indication: Seizures. Comparison: MRI July 12, 2012 [facility] and CT head February 17, 2012 from [facility]. Technique: Sagittal T1, coronal T1, T2, T2 FLAIR and inversion recovery and axial T1 pre-and postcontrast, T2, T2 FLAIR, SWI and DWI MR images of the brain were obtained. Findings: The lateral ventricles are asymmetric in size with the left larger than the right. This is likely an anatomic variation in this patient as no obstructing lesion is identified and appearance is unchanged in comparison to prior head CT from January of 2012. Lateral, 3rd and 4th ventricles are stable in size. There is no midline shift. The basilar cisterns are patent. There does appear to be slight asymmetry of the volume of the hippocampi with the left slightly smaller than the right on the coronal images. I do not appreciate abnormal signal intensity within the hippocampus on the T2 FLAIR sequence. Appearance is unchanged in comparison to the previous brain MRI. Signal intensity throughout the brain and brainstem is unremarkable. No enhancing lesions are seen following contrast administration. Flow voids are present in the major intracranial arteries and dural venous sinuses. There is mild paranasal sinus mucosal thickening present without air-fluid levels demonstrated. The mastoid air cells are clear. No gross orbital abnormality is demonstrated. Impression: 1. Slight asymmetry of the lateral ventricles, which is likely a normal finding in this patient given its stability compared to prior head CT from January of 2012. 2. Slight asymmetry of the hippocampi with the left appearing smaller than the right. 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 Findings should be correlated with EEG findings. Procedure Note 05/05/2013 MRI HEAD WITH AND WITHOUT CONTRAST May 05, 2013 Indication: Seizures. Comparison: MRI July 12, 2012 [facility] and CT head February 17, 2012 from [facility]. Technique: Sagittal T1, coronal T1, T2, T2 FLAIR and inversion recovery and axial T1 pre-and postcontrast, T2, T2 FLAIR, SWI and DWI MR images of the brain were obtained. Findings: The lateral ventricles are asymmetric in size with the left larger than the right. This is likely an anatomic variation in this patient as no obstructing lesion is identified and appearance is unchanged in comparison to prior head CT from January of 2012. Lateral, 3rd and 4th ventricles are stable in size. There is no midline shift. The basilar cisterns are patent. There does appear to be slight asymmetry of the volume of the hippocampi with the left slightly smaller than the right on the coronal images. I do not appreciate abnormal signal intensity within the hippocampus on the T2 FLAIR sequence. Appearance is unchanged in comparison to the previous brain MRI. Signal intensity throughout the brain and brainstem is unremarkable. No enhancing lesions are seen following contrast administration. Flow voids are present in the major intracranial arteries and dural venous sinuses. There is mild paranasal sinus mucosal thickening present without air-fluid levels demonstrated. The mastoid air cells are clear. No gross orbital abnormality is demonstrated. Impression: 1. Slight asymmetry of the lateral ventricles, which is likely a normal finding in this patient given its stability compared to prior head CT from January of 2012. 2. Slight asymmetry of the hippocampi with the left appearing smaller than the right. 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 Findings should be correlated with EEG findings. Sawyer Bolivar MD [facility] * DRUG SCREEN 6 (05/01/2013 15:58 EST) Amphetamine Screen, Urine Negative screen. [facility] Comment: Confirmation testing available upon request. Suitable for medical purposes only. Will not detect all drugs within class. Cutoff = 1000 ng/ml Barbiturate Screen, Urine Negative screen. [facility] Comment: Confirmation testing available upon request. Suitable for medical purposes only. Will not detect all drugs within class. Cutoff = 300 ng/ml Benzodiazepine Screen, Urine Negative screen. [facility] Comment: Confirmation testing available upon request. Suitable for medical purposes only. Will not detect all drugs within class. Assay less sensitive to Lorazepam and metabolites. Cutoff = 200 ng/ml Cannabinoid Scrn, Ur Negative screen. [facility] Comment: Confirmation testing available upon request. Suitable for medical purposes only. Will not detect all drugs within class. Cutoff = 50 ng/ml Opiate Scrn, Ur Negative screen. [facility] Comment: Confirmation testing available upon request. Suitable for medical purposes only. Will not detect all drugs within class. Cutoff = 300 ng/ml Assay less sensitive to oxycodone and metabolites. Assay does not detect methadone. Cocaine Metabolites Negative screen. [facility] Comment: Confirmation testing available upon request. Suitable for medical purposes only. Will not detect all drugs within class. Cutoff = 300 ng/ml Urine specimen (specimen) URINE / Unknown 05/01/2013 15:58 EST 05/01/2013 16:05 EST Sawyer Bolivar MD URINALYSIS ORDERAB LES [facility] [address] [place] [address] * (ABNORMAL) DIFFERENTIAL (05/01/2013 15:44 EST) Neutrophils 80.0(H) 45.5 - 79.7 % [facility] Lymphocytes 11.0(L) 15.0 - 46.8 % [facility] Monocytes 8.0 1.8 - 12.0 % [facility] Eosinophils 1.0 0.6 - 6.9 % [facility] ABS Neutrophils 10.51(H) 2.20 - 8.85 K/cmm [facility] ABS Lymphs 1.44 1.09 - 3.30 K/cmm [facility] ABS Monocytes 1.05(H) 0.1 - 0.8 K/cmm [facility] ABS Eosinophils 0.13 0.03 - 0.61 K/cmm [facility] RBC Morphology Normal [facility] Type of Diff: Manual [facility] 05/01/2013 15:4 4 EST 05/01/2013 15:50 EST Sawyer Bolivar MD HEMATOLOGY & PF4 O RDERABLES Performing Organization Address City/[facility] Co de Phone Number [facility] [address] [place] [address] * (ABNORMAL) HEMAGRAM (05/01/2013 15:44 EST) WBC 13.13(H) 4.0 - 10.4 K/cmm [facility] RBC 4.72 4.36 - 5.78 M/cmm [facility] Hemoglobin 15.5 13.8 - 17.3 gm/dl [facility] HCT 47.5 39.5 - 50.2 % [facility] MCV 101(H) 81 - 95 fl [facility] MCH 32.8 27.6 - 33.0 pg [facility] MCHC 32.5(L) 32.8 - 36.4 gm/dl [facility] PLT 318 141 - 320 K/cmm [facility] RDW-CV 15.8(H) 11.8 - 14.1 % [facility] 05/01/2013 15:4 4 EST 05/01/2013 15:50 EST Sawyer Bolivar MD HEMATOLOGY & PF4 O RDERABLES Performing Organization Address [facility] Co de Phone Number [facility] [address] [place] [address] * LAMOTRIGINE (05/01/2013 15:44 EST) Lamotrigine, Plasma or Serum 4.6 2.5 - 15.0 mcg/mL [facility] Comment: Performed or Referred by: [facility] Labs: [facility], [address] [place] [id number], Lab Dir: Juan J Vail III, MD Blood specimen (specimen) 05/01/2013 15:44 EST 05/01/2013 15:50 EST Sawyer Bolivar MD CHEMISTRY & BLOOD GAS ORDERABLES Performing Organization Address [facility] Co de Phone Number [facility] [address] [place] [address] * (ABNORMAL) LEVETIRACETAM (05/01/2013 15:44 EST) Levetiracetam, S 7.6(L) 12.0 - 46.0 mcg/mL [facility] Comment: Performed by: [facility], [address], [place] [address], [employer] Rec[employer]iter: Joselin Curiel, Ph.D. Blood specimen (specimen) 05/01/2013 15:44 EST 05/01/2013 15:50 EST Sawyer Bolivar MD CHEMISTRY & BLOOD GAS ORDERABLES Performing Organization Address [facility] Co de Phone Number [facility] [address] [place] [address] * ETHANOL, BLOOD (05/01/2013 15:44 EST) Ethanol <10 <10 mg/dl [facility] Comment: Interpret results with caution. Prolonged sample storage may alter result. Blood specimen (specimen) 05/01/2013 15:44 EST 05/01/2013 15:50 EST Sawyer Bolivar MD CHEMISTRY & BLOOD GAS ORDERABLES Performing Organization Address [facility] Co de Phone Number [facility] [address] [place] [address] * TSH (05/01/2013 15:44 EST) TSH 0.73 0.35 - 5.00 uIU/ml [facility] Blood specimen (specimen) 05/01/2013 15:44 EST 05/01/2013 15:50 EST Sawyer Bolivar MD CHEMISTRY & BLOOD GAS ORDERABLES Performing Organization Address [facility] Co de Phone Number [facility] [address] [place] [address] * LIPID PROFILE (INCLUDES CHOLESTEROL, TRIGLYCERIDES, HDL, LDL) (05/01/2013 15:44 EST) Cholesterol 210 mg/dl [facility] Comment: Desirable:<200 Borderline High:200-239 High:>vn=421 Triglycerides 105 mg/dl [facility] Comment: Normal:<150 Borderline High:150-199 High:200-499 Very High:>vc=230 HDL 70 mg/dl [facility] Comment: Low:<40 Normal:40-60 Desirable: >60 LDL, Calculated 119 mg/dl [facility] Comment: Optimal:<100 Near Optimal:100-129 Borderline High:130-159 High:160-189 Very High:>rd=900 Chol/HDL Ratio 3.0 [facility] Fasting? Unknown [facility] Non HDL Cholesterol 140 mg/dl [facility] Comment: Desirable:<130 Borderline:130-159 High: 160-189 Very High: >do=674 Blood specimen (specimen) 05/01/2013 15:44 EST 05/01/2013 15:50 EST Sawyer Bolivar MD CHEMISTRY & BLOOD GAS ORDERABLES Performing Organization Address [facility] Co de Phone Number [facility] [address] [place] [address] * FOLATE (05/01/2013 15:44 EST) Pathologist [facility] Folate 7.4 ng/mL [facility] Comment: Deficient: ??Less than 3.4 ng/mL Indeterminate: ??3.4-5.4 ng/mL Normal: ??Greater than 5.4 ng/mL Blood specimen (specimen) 05/01/2013 15:44 EST 05/01/2013 15:50 EST Sawyer Bolivar MD CHEMISTRY & BLOOD GAS ORDERABLES Performing Organization Address [facility] Co de Phone Number [facility] [address] [place] [address] * VITAMIN B12 (05/01/2013 15:44 EST) Pathologist [facility] Vitamin B-12 625 211 - 911 pg/ml [facility] Blood specimen (specimen) 05/01/2013 15:44 EST 05/01/2013 15:50 EST Sawyer Bolivar MD CHEMISTRY & BLOOD GAS ORDERABLES Performing Organization Address [facility] Co de Phone Number [facility] [address] [place] [address] * (ABNORMAL) LDH (05/01/2013 15:44 EST) LDH 675(H) 313 - 618 U/L [facility] Blood specimen (specimen) 05/01/2013 15:44 EST 05/01/2013 15:50 EST Sawyer Bolivar MD CHEMISTRY & BLOOD GAS ORDERABLES Performing Organization Address [facility] Phone Number [facility] [address] [place] [address] * ALT (05/01/2013 15:44 EST) Pathologist [facility] ALT 25 21 - 72 U/L [facility] Blood specimen (specimen) 05/01/2013 15:44 EST 05/01/2013 15:50 EST Sawyer Bolivar MD CHEMISTRY & BLOOD GAS ORDERABLES Performing Organization Address [facility] Phone Number [facility] [address] [place] [address] * AST (05/01/2013 15:44 EST) AST 31 15 - 46 U/L [facility] Blood specimen (specimen) 05/01/2013 15:44 EST 05/01/2013 15:50 EST Sawyer Bolivar MD CHEMISTRY & BLOOD GAS ORDERABLES Performing Organization Address [facility] Co de Phone Number [facility] [address] [place] [address] * PHOSPHORUS (05/01/2013 15:44 EST) Phosphorus 4.0 2.5 - 4.5 mg/dl [facility] Blood specimen (specimen) 05/01/2013 15:44 EST 05/01/2013 15:50 EST Sawyer Bolivar MD CHEMISTRY & BLOOD GAS ORDERABLES Performing Organization Address [facility] de Phone Number [facility] [address] [place] [address] * MAGNESIUM (05/01/2013 15:44 EST) Magnesium 2.1 1.7 - 2.8 mg/dl [facility] Blood specimen (specimen) 05/01/2013 15:44 EST 05/01/2013 15:50 EST Sawyer Bolivar MD CHEMISTRY & BLOOD GAS ORDERABLES Performing Organization Address [facility] Phone Number [facility] [address] [place] [address] * CALCIUM (05/01/2013 15:44 EST) Calcium 10.1 8.5 - 10.5 mg/dl [facility] Calculated Calcium 10.4 8.5 - 10.5 mg/dl [facility] Blood specimen (specimen) 05/01/2013 15:44 EST 05/01/2013 15:50 EST Sawyer Bolivar MD CHEMISTRY & BLOOD GAS ORDERABLES Performing Organization Address [facility] Phone Number [facility] [address] [place] [address] * CREATININE (05/01/2013 15:44 EST) Creatinine 0.74 0.66 - 1.25 mg/dl [facility] GFR, Calculated >60 >60 ml/min/1.7 3m2 [facility] Blood specimen (specimen) 05/01/2013 15:44 EST 05/01/2013 15:50 EST Sawyer Bolivar MD CHEMISTRY & BLOOD GAS ORDERABLES Performing Organization Address [facility] de Phone Number [facility] [address] [place] [address] * BUN (05/01/2013 15:44 EST) BUN 15 10 - 26 mg/dl [facility] Blood specimen (specimen) 05/01/2013 15:44 EST 05/01/2013 15:50 EST Sawyer Bolivar MD CHEMISTRY & BLOOD GAS ORDERABLES Performing Organization Address [facility] Phone Number [facility] [address] [place] [address] * (ABNORMAL) ELECTROLYTES (05/01/2013 15:44 EST) Pathologist [facility] Sodium 141 136 - 145 mEq/L [facility] Potassium 5.1(H) 3.5 - 5.0 mEq/L [facility] Chloride 102 96 - 110 mEq/L [facility] CO2 24 24 - 32 mEq/L [facility] Blood specimen (specimen) 05/01/2013 15:44 EST 05/01/2013 15:50 EST Sawyer Bolivar MD CHEMISTRY & BLOOD GAS ORDERABLES Performing Organization Address [facility] Phone Number [facility] [address] [place] [address] * SCREENING GLUCOSE (05/01/2013 15:44 EST) Glucose, Screening 83 70 - 100 mg/dl [facility] Blood specimen (specimen) 05/01/2013 15:44 EST 05/01/2013 15:50 EST Sawyer Bolivar MD CHEMISTRY & BLOOD GAS ORDERABLES Performing Organization Address [facility] Phone Number [facility] [address] [place] [address] documented in this encounter Visit Diagnoses Diagnosis Spells- Primary Other convulsions Spells Other convulsions documented in this encounter Administered Medications Inactive Administered Medications - up to 3 most recent administrations Medication Order MAR Action Action Date Dose Rate Site acetaminophen (TYLENOL) tablet 650 mg 650 mg, oral, EVERY 4 HOURS PRN, Starting on Wed05/01/13 at 1536, Until Wed05/05/13 at 1555, Pain, Routine Given 05/05/2013 8:00 EST 650 mg Given 05/04/2013 20:44 EST 650 mg Given 05/04/2013 7:20 EST 650 mg albuterol (VENTOLIN HFA) inhaler 2 Puff 2 Puff, inhalation, EVERY 4 HOURS, First dose on Wed05/01/13 at 1600, Until Discontinued, Routine Given 05/01/2013 17:45 EST 2 Puffs albuterol (VENTOLIN HFA) inhaler 2 Puff 2 Puff, inhalation, 4 TIMES DAILY, First dose (after last modification) on Wed05/02/13 at 0800, Until Discontinued, Routine Given 05/05/2013 13:21 EST 2 Puffs Given 05/05/2013 7:59 EST 2 Puffs Given 05/04/2013 20:46 EST 2 Puffs albuterol (VENTOLIN HFA) inhaler 2 Puff 2 Puff, inhalation, EVERY 4 HOURS PRN, Starting on Wed05/01/13 at 1852, Until Wed05/05/13 at 1555, Wheezing, Routine Given 05/02/2013 21:00 EST 2 Puffs calcium carbonate (TUMS) 200 mg calcium (500 mg) per chewable tablet tablet, chewable 1-2 Tab 1-2 Tablet, oral, 4 TIMES DAILY PRN, Starting on Wed05/01/13 at 2336, Until Wed05/05/13 at 1555, Heartburn, Routine Given 05/01/2013 23:54 EST 2 Tablets cholecalciferol (Vitamin D3) tablet 1,000 Units 1,000 Units, oral, DAILY, First dose on Wed05/02/13 at 0900, Until Discontinued Given 05/05/2013 8:00 EST 1,000 U nits Given 05/04/2013 8:29 EST 1,000 Units Given 05/03/2013 8:12 EST 1,000 Units cyclobenzaprine (FLEXERIL) tablet 10 mg 10 mg, oral, 3 TIMES DAILY, First dose on Wed05/01/13 at 1545, Until Discontinued, Routine Given 05/05/2013 13:21 EST 1 0 mg Given 05/05/2013 8:00 EST 10 mg Given 05/04/2013 20:44 EST 10 mg enoxaparin (LOVENOX) injection 40 mg 40 mg, subcutaneous, DAILY, First dose on Wed05/01/13 at 1545, Until Discontinued, Routine Given 05/05/2013 8:01 EST 40 mg Given 05/04/2013 8:29 EST 40 mg Given 05/03/2013 8:12 EST 40 mg famotidine (PEPCID) tablet 40 mg 40 mg, oral, AT BEDTIME, First dose on Wed05/01/13 at 2100, Until Discontinued, Routine Given 05/04/2013 20:44 EST 4 0 mg Given 05/03/2013 20:38 EST 40 mg Given 05/02/2013 21:00 EST 40 mg ibuprofen (MOTRIN) tablet 400 mg 400 mg, oral, EVERY 6 HOURS PRN, Starting on Wed05/02/13 at 1148, Until Wed05/05/13 at 1555, Pain, Routine Given 05/02/2013 12:35 EST 400 mg lamoTRIgine (LAMICTAL) tablet 200 mg 200 mg, oral, NOW X1, 1 dose, On Wed05/04/13 at 1645, Routine Given 05/04/2013 17:10 EST 200 mg lamoTRIgine (LAMICTAL) tablet 300 mg 300 mg, oral, AT BEDTIME, First dose on Wed05/04/13 at 2100, Until Discontinued, Routine Given 05/04/2013 20:44 EST 300 mg LORazepam (ATIVAN) tablet 1 mg 1 mg, oral, PRN, Starting on Wed05/04/13 at 1706, Until Wed05/05/13 at 1555, Anxiety, Please give 30 minutes prior to MRI tomorrow, Routine Given 05/05/2013 10:49 EST 1 mg nicotine (NICODERM CQ) 14 mg/24 hr patch 1 Patch 1 Patch, transdermal, DAILY, First dose on Wed05/01/13 at 1500, Until Discontinued, Routine Patch Applied 05/01/2013 16:16 EST 1 Patch Right Arm nicotine (NICODERM CQ) 21 mg/24 hr patch 1 Patch 1 Patch, transdermal, DAILY, First dose on Wed05/01/13 at 1645, Until Discontinued, Routine Patch Applied 05/05/2013 8:01 EST 1 Patch Right A rm Patch Applied 05/04/2013 8:29 EST 1 Patch Le ft Arm Patch Applied 05/03/2013 8:12 EST 1 Patch Ri ght Arm QUEtiapine (SEROQUEL) tablet 100 mg 100 mg, oral, AT BEDTIME, First dose on Wed05/01/13 at 2100, Until Discontinued, Routine Given 05/04/2013 22:07 EST 1 00 mg Given 05/02/2013 23:12 EST 100 mg Given 05/01/2013 22:54 EST 100 mg tiotropium (SPIRIVA) 18 mcg inhalation capsule 18 mcg 18 mcg, inhalation, DAILY, First dose on Wed05/01/13 at 1830, Until Discontinued, Routine Given 05/05/2013 8:01 EST 18 mcg Given 05/04/2013 8:27 EST 18 mcg Given 05/03/2013 8:13 EST 18 mcg documented in this encounter Discontinued Medications Medication Sig Discontinue Reason Start Date End Da te pregabalin (LYRICA) 100 mg capsule Take 100 mg by mouth 3 times daily. 05/05/2013 lamoTRIgine (LAMICTAL) 200 mg tablet Take 200 mg by mouth 2 times daily. 05/05/2013 levetiracetam (KEPPRA) 500 mg tablet Take 500 mg by mouth 2 times daily. 05/05/2013 documented as of this encounter Active and Recently Administered Medications Times are shown in EST. Scheduled Medication Order 05/03/2013 05/04/2013 05/05/2013 albuterol (VENTOLIN HFA) inhaler 2 Puff (CANCELED) 2 Puff, inhalation, 4 TIMES DAILY, First dose (after last modification) on Wed05/02/13 at 0800, Until Discontinued, Routine 0813 (Given - Provider: Wilma Russell RN)1155 (Given - Provider: Wilma Russell RN)170 (Not Given - Provider: Catrina Sandoval RN - Reason: Patient/family refused)2037 (Given - Provider: Leo Perez RN) 0828 (Given - Provider: Keyla Britton)1143 (Given - Provider: Keyla Britton)1711 (Given - Provider: Keyla Britton)2046 (Given - Provider: Leo Perez RN) 0759 (Given - Provider: Keyla Britton)1321 (Given - Provider: Keyla Britton) cholecalciferol (Vitamin D3) tablet 1,000 Units (CANCELED) 1,000 Units, oral, DAILY, First dose on Wed05/02/13 at 0900, Until Discontinued 0812 (Given - Provider: Wilma Russell RN) 0829 (Given - Provider: Keyla Britton) 0800 (Given - Provider: Keyla Britton) cyclobenzaprine (FLEXERIL) tablet 10 mg (CANCELED) 10 mg, oral, 3 TIMES DAILY, First dose on Wed05/01/13 at 1545, Until Discontinued, Routine 08 (Given - Provider: Wilma Russell RN)1347 (Given - Provider: Wilma Russell RN)2024 (Not Given - Provider: Leo Perez RN - Reason: Other) 0823 (Hold - Provider: Keyla Britton - Reason: Other - Comment: Medication sedating.)1142 (Given - Provider: Keyla Britton)1404 (Hold - Provider: Keyla Britton - Reason: Other - Comment: morning dose given late.)2043 (Given - Provider: Leo Perez RN) 0800 (Given - Provider: Keyla Britton)1321 (Given - Provider: Keyla Britton) enoxaparin (LOVENOX) injection 40 mg (CANCELED) 40 mg, subcutaneous, DAILY, First dose on Wed05/01/13 at 1545, Until Discontinued, Routine 08 (Given - Provider: Wilma Russell RN) 0829 (Given - Provider: Keyla Britton) 0801 (Given - Provider: Keyla Britton) famotidine (PEPCID) tablet 40 mg (CANCELED) 40 mg, oral, AT BEDTIME, First dose on Wed05/01/13 at 2100, Until Discontinued, Routine 2037 (Given - Provider: Leo Perez RN) 2043 (Given - Provider: Leo Perez RN) lamoTRIgine (LAMICTAL) tablet 200 mg (COMPLETED) 200 mg, oral, NOW X1, 1 dose, On Wed05/04/13 at 1645, Routine 1710 (Given - Provider: Keyla Britton) lamoTRIgine (LAMICTAL) tablet 300 mg 300 mg, oral, AT BEDTIME, First dose on Wed05/04/13 at 2100, Until Discontinued, Routine 2043 (Given - Provider: Leo Perez RN) nicotine (NICODERM CQ) 21 mg/24 hr patch 1 Patch (CANCELED) 1 Patch, transdermal, DAILY, First dose on Wed05/01/13 at 1645, Until Discontinued, Routine 08 (Patch Applied - Provider: Wilma Russell RN)2043 (Patch Removed - Provider: Leo Perez RN) 08 (Patch Applied - Provider: Keyla Britton)2038 (Patch Removed - Provider: Leo Perez RN) 08 (Patch Applied - Provider: Keyla Britton)2100 (Due: Patch Removed - Provider: Keyla Britton) QUEtiapine (SEROQUEL) tablet 100 mg (CANCELED) 100 mg, oral, AT BEDTIME, First dose on Wed05/01/13 at 2100, Until Discontinued, Routine 2024 (Not Given - Provider: Leo Perez RN - Reason: Other) 2206 (Given - Provider: Leo Perez RN) tiotropium (SPIRIVA) 18 mcg inhalation capsule 18 mcg (CANCELED) 18 mcg, inhalation, DAILY, First dose on Wed05/01/13 at 1830, Until Discontinued, Routine 08 (Given - Provider: Wilma Russell RN) 0827 (Given - Provider: Keyla Britton) 0801 (Given - Provider: Keyla Britton) PRN Medication Order 05/03/2013 05/04/2013 05/05/2013 acetaminophen (TYLENOL) tablet 650 mg (CANCELED) 650 mg, oral, EVERY 4 HOURS PRN, Starting on Wed05/01/13 at 1536, Until Wed05/05/13 at 1555, Pain, Routine 1211 (Given - Provider: Wilma Russell RN) 0720 (Given - Provider: Leo Perez RN)204 (Given - Provider: Leo Perez RN) 0800 (Given - Provider: Keyla Britton) LORazepam (ATIVAN) tablet 1 mg (CANCELED) 1 mg, oral, PRN, Starting on Kamila 05/04/13 at 1706, Until 05/05/13 at 1555, Anxiety, Please give 30 minutes prior to MRI tomorrow, Routine 1049 (Given - Provider: Keyla Britton) documented in this encounter Orders Medications Ordered That Reji ht Not Have Been Administered Count Last Ordered Date First Ordered Date albuterol (VENTOLIN HFA) inhaler 2 Puff 1 1 07/02/2012 bisacodyl (DULCOLAX) EC tablet 10 mg 1 07/2012 ondansetron (PF) (ZOFRAN) injection 2-4 mg 1 05/01/2013 senna (SENOKOT) tablet 1-2 Tab 1 05/01/2013 sumatriptan (IMITREX) tablet 50 mg 1 2012 Consult Count Last Ordered Date First Orde red Date CONSULT CASE MANAGEMENT 1 05/01/2013 IV Count Last Ordered Date First Orde red Date IV REQUEST 1 05/01/2013 Admission Count Last Ordered Date First Orde red Date STATUS: INPATIENT ACUTE ADMISSION 1 013 Transfer Count Last Ordered Date First Orde red Date NOTIFY PPS OF DISCHARGE COMPLETE 1 05/05/20 13 PPS NOTIFICATION OF PATIENT ARRIVAL ON UNIT 1 05/01/2013 Discharge Count Last Ordered Date First Orde red Date DISCHARGE PATIENT 1 05/05/2013 documented in this encounter Care Teams Molder Inflated Ball Relationship Specialty Start Date End Date Vira Morfin MD [address] [address] PCP - General 05/01/13 05/27/14 documented as of this encounter
--- OUTSIDE RECORDS SUMMARY | 2024-02-03 13:17 | XMS_ITS | Encounter Summary ---
Author Organization [facility] Address [address] [place] [address] Care Team Providers Care Gamewell Operator Name Role Phone Unavailable Primary Care Provider Unavailabl e Encounter Details Date Type Department Care Team (Latest Contact Info) Description 05/21/2008 20:09 EST Hospital Encounter [facility] Emergency Department - [facility] [address] [place] [address] Emergency, Default, MD Discharge Disposition: Home or Self Care Social History Tobacco Use Types Packs/Day Years Used Date Smoking Tobacco: Never Assessed Sex and Gender Information Value Date Recorded Sex Assigned at Not on file Gender Identity Male 11/20/2019 11:35 EDT Sexual Orientation Not on file documented as of this encounter Discharge Disposition Disposition Code Departure Means Destination Home or Self Care documented in this encounter Plan of Treatment Pending Results Name Type Priority Associated Diagnoses Date /Time OUTSIDE IMAGES - MR NEURO Imaging 12/28/2012 14:06 EDT Scheduled Orders Name Type Priority Associated Diagnoses Orde r Schedule OUTSIDE IMAGES - MR NEURO Imaging For medications that can be administered at any time during the hospitalization for visit such as immunizations. for 1 Occurrences starting 12/28/2012 documented as of this encounter Visit Diagnoses Not on filedocumented in this encounter
--- OUTSIDE RECORDS SUMMARY | 2024-02-03 13:17 | XMS_ITS | Encounter Summary ---
Author Organization [facility] Address [address] [place] [address] Care Team Providers Care Controller [employer] Name Role Phone Jaxon Napier MD Primary Care Provider [phone] Encounter Details Date Type Department Care Team (Latest Contact Info) Description 05/01/2013 12:23 EST - 05/01/2013 23:59 EST Hospital Encounter [facility] Neurophysiology - Main [address] [address] Discharge Disposition: Home or Self Care Social [...] QOL 05/01/2013 documented as of this encounter Medications at [...] 30 days. 60 Tab 4 05/05/2013 06/04/2013 lamoTRIgine (LAMICTAL) 200 mg tablet Take 200 mg by mouth 2 times daily. 05/05/2013 levetiracetam (KEPPRA) 500 mg tablet Take 500 mg by mouth 2 times daily. 05/05/2013 Omeprazole 20 mg tablet,delayed release (DR/EC) Take 20 mg by mouth daily. 04/27/2022 pregabalin (LYRICA) 100 mg capsule Take 100 mg by mouth 3 times daily. 05/05/2013 QUEtiapine (SEROQUEL) 100 mg tablet Take 100 mg by mouth 2 times daily . 03/13/2020 documented as of this encounter Discharge Disposition Disposition Code Departure Means Destination Home or Self [place] documented in this encounter Procedure Notes * Marko Guerrero MD - 05/01/2013 1613 ESTProcedure(s): EEG- TRANSCRIBED ORDER Clinical Neurophysiology Laboratory Name: [facility] : [address] [place], [place] Date: 05/01/2013 Electroencephalogram Report Referring Physician: No ref. provider found Study Number: [id number] Clinical Indication: 47 year old with question of seizures. Medications: Omeprazole 20mg, Flexeril 10mg three times daily, Seroquel 25mg 1-4 tablets nightly, Keppra 500mg twice daily, Prozac 60mg daily, Lamictal 200mg twice daily, Serovent, Dulera Technical Description: Standard EEG: An in-laboratory digital EEG is performed utilizing silver-silver chloride electrodesplaced according to the International 10-20 system of electrode placement. CPZ serves as the recording reference electrode. The following additional electrodes are also placed: ECG electrodes ;anterior temporal electrodes The study begins at 1306 until 1338 with a total study duration of 32 minutes. During this study the following states the following were recorded: Wake;Drowsy;Stage I Sleep Subject factors: Cooperative The patient and/or caregivers report:6.5 hours of sleep night before study; Estimated average 6.5 hours of sleep Previous EEG Study? Yes (pt states osh sometime this year) Findings: Findings: The alpha rhythm is 12 Hz. Hyperventilation: Three minutes of hyperventillation produced no changes in the EEG. Photic stimulation: 10 second trains of stimulation by 10 second intervals without stimulation are performed at flash frequencies at intervals between 1 to 20 Hz and then downward from 60 to 25 Hz. The drowsy and sleep recording contains the following features: Light sleep is unremarkable. Impression: Normal EEG. Clinical Correlation: There is no epileptiform activity in this study. An EMU will be reported whenavailable. Marko Guerrero MD ABPN Certified, Neurology and Clinical Neurophysiology 16:14 05/01/2013 documented in this encounter Plan of Treatment Not on file documented as of this encounter Visit Diagnoses Not on filedocumented in this encounter Care Teams Controller [employer] Relationship Specialty Start Date End Date Jaxon Napier MD [address] [address] PCP - General 05/01/13 05/27/14 documented as of this encounter
--- OUTSIDE RECORDS SUMMARY | 2024-02-03 13:17 | XMS_ITS | Encounter Summary ---
Author Organization [facility] Address [address] [place] [address] Care Team Providers Care Rig Mechanic Name Role Phone Oly Nieto MD Primary Care Provider Braeden johnson Reason for Visit * Reason Comments Act 1 Clearance pt is interested in getting help for his ETOH abuse. Last drink was two hrs. Hasn't taken dilantin in 3 days because he ran out. Encounter Details Date Type Department Care Team (Late st Contact Info) Description 09/05/2010 20:44 EDT - 09/06/2010 1:[address] [facility] Emergency Department - [address] [address] Oly Sherman MD [address] [place] [address], Level [address] [place] [address] Emergency, MD Franky Alcohol intoxication ([facility]) ([facility]); Noncompliance with medication regimen Discharge Disposition: Home or Self Care Social [...] Sign Reading Time Taken Comments Blood Pressure 130/73 09/06/2010 010 EDT Pulse 104 09/06/2010108 EDT Temperature 35.8 ??C (96.4 ??F) 09/05/20102045 EDT Respiratory Rate 16 09/06/2010108 EDT Oxygen Saturation 96% 09/05/20105 EDT Inhaled Oxygen Concentration - - Weight 73.9 kg (163 lb) 09/05/20102045 EDT Height - - Body Mass Index - - documented in this encounter Discharge Instructions * Discharge Instructions* Oly Sherman IV, MD - 09/06/2010 0:18 EDT Take your Keppra. Call [facility] to seek a bed for alcohol treatment and withdrawal. documented in this encounter Medications at Time [...] or Self Care documented in this encounter ED Notes * Oly Sherman IV, MD - 09/08/2010 0607 EDT DOS: 09/05/2010 Chief Complaint Patient presents with ??? Act 1 Clearance pt is interested in getting help for his ETOH abuse. Last drink was two hrs. Hasn't taken dilantin in 3 days because he ran out. The patient is a 45 y.o. male who presents today with Act 1 Clearance HPI Comments: States wishes to withdraw from ETOH, drinking within the hour of presentation. The history is provided by the patient. Act 1 Clearance Primary symptoms include intoxication. Primary symptoms include no agitation. This is a chronic problem. The current episode started more than 2 days ago. The problem has not changed since onset. Suspected agents include alcohol. Pertinent negatives include no fever, no nausea and no vomiting. chronic alcoholism Review of Systems Constitutional: Negative. Negative for fever and chills. HENT: Negative. Eyes: Negative. Respiratory: Negative for shortness of breath. Cardiovascular: Negative for chest pain. Gastrointestinal: Negative for nausea, vomiting and abdominal pain. Genitourinary: Negative for dysuria and difficulty urinating. Musculoskeletal: Negative for back pain. Skin: Negative. Neurological: Negative. Hematological: Does not bruise/bleed easily. Psychiatric/Behavioral: Negative. Negative for agitation. The patient is not nervous/anxious. All other systems reviewed and are negative. Past Medical History Diagnosis Date ??? ETOH abuse ??? Seizures History reviewed. No pertinent past surgical history. No Known Allergies History Substance Use Topics ??? Smoking status: Current Everyday Smoker -- 1.5 packs/day ??? Smokeless tobacco: Not on file ??? Alcohol Use: Yes History reviewed. No pertinent family history. Vital Signs Temp: 35.8 ??C (96.4 ??F) Temp src: Tympanic Pulse: 104 Resp: 16 SpO2: 96 % BP: 130/73 mmHg BP Device: BP Machine Patient Position: Sitting BP Cuff Location: Left arm O2 Device: None (Room air) Physical Exam Nursing note and vitals reviewed. Constitutional: He is oriented to person, place, and time. He appears well- developed and well-nourished. No distress. Grossly intoxicated HENT: Head: Normocephalic and atraumatic. Eyes: Pupils are equal, round, and reactive to light. Neck: Neck supple. Cardiovascular: Normal rate and intact distal pulses. Pulmonary/Chest: Effort normal. No respiratory distress. Abdominal: He exhibits no distension. Musculoskeletal: He exhibits no edema. Neurological: He is alert and oriented to person, place, and time. No tremors Skin: Skin is warm and dry. Psychiatric: His behavior is normal. Thought content normal. intoxicated Radiology orders: None Patient had laboratory tests ordered which were reviewed and interpreted by myself. Please see laboratory results for detailed information. EtOH of 0.306, dilantin level neg POCT testing: glucose of 92 Procedures ED Course: A medical screening exam was performed. Presents to ED c/o intoxication, need to withdraw, desire to go to [facility]. No beds at [facility]. Initially stated he has not been taking his dilantin; when dilantin ordered after neg level, pt remembered he takes Keppra, not dilantin. Advised to take his meds, stop abusing alcohol, call his PCP, get on waiting list at [facility]. Disposition: Discharged The patient's pain was managed to an adequate level weighing risk vs. benefit of further medications. Upon departure from the Emergency Department, the patient's pain was 0 on a zero to ten scale. Condition at departure from the Emergency Department: improved Discharge Prescriptions New Prescriptions No Discharge Prescriptions for this patient MDM Number of Diagnoses or Management Options Alcohol intoxication: Noncompliance with medication regimen: Diagnosis management comments: 4 1. Alcohol intoxication (305.00AQ) 2. Noncompliance with medication regimen (V15.81R) PCP: OLY NIETO MD 09/08/2010 6:07 * Yusuf Poon RN - 09/05/2010 2118 EDT Care assumed and report received. Pt awaiting labs results and med completion. documented in this encounter Miscellaneous Notes * Scanned Note-Null - Inpatient, Physician - 09/05/2010 0000 EDT documented in this encounter Plan of Treatment Not on file documented as of this encounter Procedures Procedure Name Priority Date/Time Associated Diagnosis Comments SCREENING GLUCOSE Routine 09/05/2010 21: 23 EDT PHENYTOIN STAT 09/05/2010 21:23 EDT ETHANOL, BLOOD Routine 09/05/2010 21:23 EDT documented in this encounter Results * SCREENING GLUCOSE (09/05/2010 21:23 EDT) Glucose, Screening 92 70 - 100 mg/dl [facility] Blood specimen (specimen) 09/05/2010 21:23 EDT 09/05/2010 21:26 EDT Oly Sherman MD CHEMISTRY & BLOOD GAS ORDERABLES [facility] [address] [place] [address] * (ABNORMAL) ETHANOL, BLOOD (09/05/2010 21:23 EDT) Ethanol 306(H) <10 mg/dl [facility] Blood specimen (specimen) 09/05/2010 21:23 EDT 09/05/2010 21:26 EDT Oly Sherman MD CHEMISTRY & BLOOD GAS ORDERABLES [facility] [address] [place] [address] * (ABNORMAL) PHENYTOIN (09/05/2010 21:23 EDT) Phenytoin <3.0(L) 10.0 - 20.0 ug/ml [facility] Blood specimen (specimen) 09/05/2010 21:23 EDT 09/05/2010 21:26 EDT Oly Sherman MD CHEMISTRY & BLOOD GAS ORDERABLES Performing Organization Address [facility] de Phone Number [facility] [address] [place] [address] documented in this encounter Visit Diagnoses Diagnosis Alcohol intoxication ([facility]) Alcohol abuse, unspecified Noncompliance with medication regimen Personal history of noncompliance with medical treatment, presenting hazards to health documented in this encounter Administered Medications Inactive Administered Medications - up to 3 most recent administrations Medication Order MAR Action Action Date Dose Rate Site diazepam (VALIUM) injection 5 mg, intravenous, NOW X1, 1 dose, On Wed09/05/10 at 2145, STAT Given 09/05/2010 21:25 EDT 5 mg diazepam (VALIUM) injection 5 mg, intravenous, NOW X1, 1 dose, On Wed09/05/10 at 2215, STAT Given 09/05/2010 21:56 EDT 5 mg nicotine (NICOTROL) 10 mg inhaler 1 Inhaler 1 Inhaler, inhalation, EVERY 2 HOURS PRN, Starting on Wed09/05/10 at 2156, Until 09/06/10 at 0315, Smoking Cessation, STAT Given 09/05/2010 22:10 EDT 1 Inhaler sodium chloride 0.9 % 1,000 mL BOLUS 1,000 mL, intravenous, Once (Without Time Specified), 1 dose, Starting on Wed09/05/10 at 2145, Until Wed09/05/10 at 2125, STAT Given 09/05/2010 21:25 EDT 1,000 mL documented in this encounter Active and Recently Administered Medications Times are shown in EDT. Scheduled Medication Order 09/04/2010 09/05/2010 09/06/2010 diazepam (VALIUM) injection (COMPLETED) 5 mg, intravenous, NOW X1, 1 dose, On Wed09/05/10 at 2145, STAT 2125 (Given - Provider: Los Poon, KASANDRA) diazepam (VALIUM) injection (COMPLETED) 5 mg, intravenous, NOW X1, 1 dose, On Wed09/05/10 at 2215, STAT 2156 (Given - Provider: Los Poon RN) sodium chloride 0.9 % 1,000 mL BOLUS (COMPLETED) 1,000 mL, intravenous, Once (Without Time Specified), 1 dose, Starting on Wed09/05/10 at 2145, Until Wed09/05/10 at 2125, STAT 2125 (Given - Provider: Los Poon RN) PRN Medication Order 09/04/2010 09/05/2010 09/06/2010 nicotine (NICOTROL) 10 mg inhaler 1 Inhaler (CANCELED) 1 Inhaler, inhalation, EVERY 2 HOURS PRN, Starting on Wed09/05/10 at 2156, Until 09/06/10 at 0315, Smoking Cessation, STAT 2210 (Given - Provider: Los Poon, KASANDRA) documented in this encounter Orders Medications Ordered That Reji ht Not Have Been Administered Count Last Ordered Date First Ordered Date fosphenytoin (CEREBYX) injection 1,000 mg 1 09/05/2010 Nursing Count Last Ordered Date First Orde red Date INSERT PERIPHERAL IV 1 09/05/2010 documented in this encounter Care Teams Rig Mechanic Relationship Specialty Start Date End Date Oly Nieto MD PCP - General 01/08/09 09/24/10 documented as of this encounter
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
--- OUTSIDE RECORDS SUMMARY | 2024-02-03 13:17 | XMS_ITS | Encounter Summary ---
Author Organization [facility] Address [address] [place] [address] Care Team Providers Care Blue Leather Sorter Name Role Phone IssaalbaLynn brooks Iris GARBAGE COLLECTOR DRIVER Primary Care Provider [phone] Reason for Visit * Reason Onset Date Comments Appointment Related 05/30/2014 Encounter Details Date Type Department Care Team (Late st Contact Info) Description 05/30/[address] [facility] Spine Program - [place] [address] [place] [address] Marifer Costello PA-C [address] [place] [address] Appointment Related Social History Tobacco [...] * Telephone Encounter - Julia Menchaca - 05/30/2014 1141 EST Called patient and informed of the following appointments: MRI Wednesday06/22/14 at 4:30 pm at [address] and f/u with Antoninokeya Wednesday06/25/14 at 9:15 am at [address]. Provided phone numbers to reschedule if necessary. documented in this encounter Plan of Treatment Not on file documented as of this encounter Visit Diagnoses Not on filedocumented in this encounter Care Teams Blue Leather Sorter Relationship Specialty Start Date End Date Lynn Solis, GARBAGE COLLECTOR DRIVER [address] [place] [address] PCP - General 05/28/14 09/15/21 documented as of this encounter
--- OUTSIDE RECORDS SUMMARY | 2024-02-03 13:17 | XMS_ITS | Encounter Summary ---
Author Organization [facility] Address [address] [place] [address] Care Team Providers Care Solutions Sales Consultant Name Role Phone Lynn Solis Iris JUNIOR ADMINISTRATIVE ASSISTANT Primary Care Provider [phone] Reason for Visit * Reason Comments Back Pain mid and lower back p ain radiates to bilat legs Encounter Details Date Type Department Care Team (Late st Contact Info) Description 05/30/2014 9:45 EST Office Visit [facility] - [address] [place] [address] Marifer Costello PA-C [address] [place] [address] [place] [address] Low back pain radiating to [...] - - Weight 68 kg (150 lb) 05/30/2014 0958 EST Height 162.6 cm (5' 4) 05/30/2014 0958 EST Body Mass Index 25.75 05/30/2014 0958 EST documented in this encounter Functional Status Cognitive Status Response Date of Assessm ent Because of a physical, menta l, or emotional condition, do you have serious difficulty concentrating, remembering, or making decisions? (5 years old or older) pt reports STM loss that interferes with QOL 05/01/2013 documented as of this encounter Ordered Prescriptions Prescription Sig Dispensed Refills Start Date End Da te gabapentin (NEURONTIN) 100 mg capsule Take 1 Cap by mouth 3 times daily. 90 Cap 2 05/30/2014 03/13/2020 documented in this encounter Progress Notes * Marifer Costello PA - 05/30/2014 1011 EST Fran Justin Sr. is being seen as a consultation from Dr. Solis. Chief Complaint Patient presents with ??? Back Pain mid and lower back pain radiates to bilat legs The encounter diagnosis was Low back pain radiating to both legs. HPI Mr. Justin is a 49 y.o. pleasant male who presents to the clinic today with 70% LBP and 30% B/L LE pain affecting the anterior aspects of his thighs, the anterior aspects of his lower leg with tinglingin the dorsal surface of his feet including the [...] forward alleviate his symptoms. Walking more than 100 feet aggravates his symptoms the most. He rates [...] daily. ??? cyclobenzaprine (FLEXERIL) 10 mg tablet Take 10 mg by mouth 3 times daily. ??? famotidine (PEPCID) 40 mg tablet Take 40 mg by mouth at bedtime. ??? gabapentin (NEURONTIN) 100 mg capsule Take 1 Cap by mouth 3 times daily. 90 Cap 2 ??? Omeprazole 20 mg tablet,delayed release (DR/EC) Take 20 mg by mouth daily. ??? QUEtiapine (SEROQUEL) 100 mg tablet Take 100 mg by mouth at bedtime. No current facility-administered medications for this visit. Allergies Allergen Reactions ??? No Known Drug Allergies Review of Systems Constitutional: Positive for activity change. Negative for unexpected weight change. Eyes: Negative for visual disturbance. Respiratory: Negative for chest tightness. Cardiovascular: Negative for chest pain. Gastrointestinal: Negative for constipation. Genitourinary: Negative for difficulty urinating. Musculoskeletal: Positive for back pain. Negative for neck pain. Skin: Negative for rash. Neurological: Negative for numbness. Psychiatric/Behavioral: Negative for behavioral problems and agitation. Physical Exam Constitutional: He is oriented to person, place, and time. He appears well- developed and well-nourished. HENT: Head: Atraumatic. Eyes: EOM are normal. Neck: Neck supple. Cardiovascular: Normal rate. Pulmonary/Chest: Effort normal. Neurological: He is alert and oriented to person, place, and time. Skin: Skin is warm and dry. No rash noted. Psychiatric: He has a normal mood and affect. His behavior is normal. Back Exam Comments: GAIT: Normal. HEEL & TOE WALKING: NEG. LESIONS, RASHES OR HAIR STEVEN: NEG. FROM: TENDERNESS ON PALPATION: NEG. STRENGTH: 5/5 REFLEXES: Patellar 2/4 B/L; Achilles 2/4 B/L. BABINSKI: Down. CLONUS: NEG. DP: 2/2. SENSATION: Intact. SLR RIGHT: NEG. LEFT: NEG. HIP ROM: Full. LUCA'S: NEG. Neurologic Exam Mental Status Oriented to person, place, and time. Cranial Nerves CN III, IV, Extraocular motions are normal. Today, 05/30/2014, I ordered plain radiographs and MRI and I independently reviewed the following: Plain radiographs (AP/Lat/Flex/Ex): 1. Five (5) non-rib [...] noted Assessment 49 y.o. male with LBP and B/L LE pain along the L4/L5 dermatomes consistent with neurogenic claudication. He has agreed to the following plan. Other Orders Placed This Visit Procedures ??? MR SPINE-LUMBAR AND CONTENTS Plan: 1. Order MRI 2. Gabapentin 100 mg TID 3. Return to clinic post MRI CC: Dr. Will Montalvo was the attending physician available in the clinic today if needed. A consultation wasnot required. documented in this encounter Plan of Treatment Not on file documented as of this encounter Procedures Procedure Name Priority Date/Time Associated Diagnosis Comments MR LUMBAR SPINE WO CONTRAST 06/22/2014 17:23 EST documented in this encounter Results * MR LUMBAR SPINE WO CONTRAST (06/22/2014 17:23 EST) Anatomical Region Laterality Modality Other 06/22/2014 17:2 3 EST 06/23/2014 15:52 EST Narrative 06/23/2014 15:52 EST MRI LUMBAR SPINE WITHOUT CONTRAST June 22, 2014 Indication: Low back pain. Comparison: Lumbar spine films May 30, 2014. Technique: Sagittal T1, T2 and STIR, axial T1 and T2 and coronal T2 fat saturated MR images of the lumbar spine were obtained. 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 There is grade I retrolisthesis of L1 on L2 and L2 on L3. A compression deformity of the superior endplate of L1 is demonstrated without associated marrow edema demonstrated on the STIR sequence. Just over 50% vertebral body height loss is demonstrated. This is similar to the previous plain films. There is also very mild anterior wedging of the T12 vertebral body also without associated marrow edema on the STIR sequence and also similar to the prior plain films. There is loss of disc signal and mild disc space narrowing at T12-L1, L1-L2, L2-L3 and L4-L5 consistent with disc degeneration. Mild lower lumbar facet degeneration is also noted. T12-L1: There is mild global disc bulge [...] disc herniation or spinal stenosis is noted. The conus terminates normally at L1. Impression: 1. Compression deformities of the T12 and L1 vertebral bodies without associated marrow edema. 2. Thoracolumbar degenerative disc disease. 3. Lumbar degenerative joint disease. 4. Central disc herniation at L2-L3. 5. Central spinal, lateral recess or neural foraminal narrowing as described by level above. Procedure Note 06/23/2014 MRI LUMBAR SPINE WITHOUT CONTRAST June 22, 2014 Indication: Low back pain. Comparison: Lumbar spine films May 30, 2014. Technique: Sagittal T1, T2 and STIR, axial T1 and T2 and coronal T2 fat saturated MR images of the lumbar spine were obtained. 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 There is grade I retrolisthesis of L1 on L2 and L2 on L3. A compression deformity of the superior endplate of L1 is demonstrated without associated marrow edema demonstrated on the STIR sequence. Just over 50% vertebral body height loss is demonstrated. This is similar to the previous plain films. There is also very mild anterior wedging of the T12 vertebral body also without associated marrow edema on the STIR sequence and also similar to the prior plain films. There is loss of disc signal and mild disc space narrowing at T12-L1, L1-L2, L2-L3 and L4-L5 consistent with disc degeneration. Mild lower lumbar facet degeneration is also noted. T12-L1: There is mild global disc bulge [...] disc herniation or spinal stenosis is noted. The conus terminates normally at L1. Impression: 1. Compression deformities of the T12 and L1 vertebral bodies without associated marrow edema. 2. Thoracolumbar degenerative disc disease. 3. Lumbar degenerative joint disease. 4. Central disc herniation at L2-L3. 5. Central spinal, lateral recess or neural foraminal narrowing as described by level above. Marifer Costello PA-C IMG MRI ORDERA BLES documented in this encounter Visit Diagnoses Diagnosis Low back pain radiating to both legs- Primary Lumbago documented in this encounter Care Teams Solutions Sales Consultant Relationship Specialty Start Date End Date Lynn Solis NP [address] [place] [id number] PCP - General 05/28/14 09/15/21 documented as of this encounter
--- OUTSIDE RECORDS SUMMARY | 2024-02-03 13:17 | XMS_ITS | Encounter Summary ---
Author Organization [facility] Address [address] [place] [address] Care Team Providers Care Mechanical Operator Name Role Phone Brian Aleman MD Primary Care Provider [phone] Encounter Details Date Type Department Care Team (Late st Contact Info) Description 02/17/2013 10:12 EDT Hospital Encounter [facility] - [address] [address] Ash Almendarez MD [address] [place] [address]. [address] [place] [id number] Discharge Disposition: Home or Self Care Social History Tobacco Use Types Packs/Day Years Used Date Smoking Tobacco: Every Day Cigarettes Alcohol Use Standard Drinks/Week Comments Yes 0 (1 standard drink = 0.6 oz pure alcohol) 12 pack to a case of beer per day Sex and Gender Information Value Date Recorded Sex Assigned at Not on file Gender Identity Male 11/20/2019 11:35 EDT Sexual Orientation Not on file documented as of this encounter Medications at Time of Discharge Medication Sig Dispensed Refills Start Date End Date albuterol (PROVENTIL HFA, VENTOLIN HFA) 90 mcg/Actuation inhaler Inhale 2 Puffs as directed every 4 hours. levetiracetam (KEPPRA) 500 mg tablet Take 500 mg by mouth 2 times daily. 05/05/2013 documented as of this encounter Discharge Disposition Disposition Code Departure Means Destination Home or Self Group Home documented in this encounter Plan of Treatment Not on file documented as of this encounter Visit Diagnoses Not on filedocumented in this encounter Care Teams Mechanical Operator Relationship Specialty Start Date End Date Brian Aleman MD [address] [place] [phone] PCP - General 02/17/13 04/30/13 documented as of this encounter
--- OUTSIDE RECORDS SUMMARY | 2024-02-03 13:17 | XMS_ITS | Encounter Summary ---
Author Organization [facility] Address [address] [place] [address] Care Team Providers Care Print Designer Name Role Phone Mitchell Del Rosario MD Primary Care Provider Mitchell Bragg MD Primary Care Provider Braeden johnson Encounter Details Date Type Department Care Team (Late st Contact Info) Description 05/20/2008 Office Visit [facility] - [facility] [address] [place] [address] Hubert Jarvis MD Social History Tobacco Use Types Packs/Day Years Used Date Smoking Tobacco: Never Assessed Sex and Gender Information Value Date Recorded Sex Assigned at Not on file Gender Identity Male 11/20/2019 11:35 EDT Sexual Orientation Not on file documented as of this encounter Progress Notes * Ruthie Jarvis MD (Richard) - 07/12/2009 1503 EST Department - Physician Summary Registration Date/Time: 05/20/2008 11:06 Time Seen: 11:28. Arrived- By private vehicle. Historian- patient. HISTORY OF PRESENT ILLNESS Chief Complaint: alcohol withdrawel. This started about 3 days agoand is still present (worse). At its maximum, severity described as severe. When seen in the E.D., severity described as severe. (Pt has been at [facility] detox for 5 days and is getting more agitated and tremor. Some diffuse abdo pain. Is eating OK. Doesn't feel like he is getting enough valium. ). Patient has not had similar symptoms previously. Not recently seen/assessed. REVIEW OF SYSTEMS No fever, sore throat, sinus drainage, nasal congestion or cough. No difficulty breathing, chest pain, abdominal pain, nausea or vomiting. No diarrhea, black stools, difficulty with urination, abnormal bleeding or vaginal discharge. No skin rash, back pain, headache or blackouts. PAST HISTORY Negative. Medications: The patient's medications have not been reviewed. Allergies: The patient's allergies have not been reviewed. SOCIAL HISTORY Nonsmoker. ADDITIONAL NOTES The nursing notes have been reviewed. PHYSICAL EXAM Appearance: Alert. No acute distress. Vital Signs: Have been reviewed. Eyes: Eyes normal inspection. ENT: Pharynx normal. Neck: Normal inspection. CVS: Normal heart rate and rhythm. Heart sounds normal. Respiratory: No respiratory distress. Breath sounds normal. Abdomen: Abdomen soft and nontender. Back: Normal inspection. Skin: Normal skin color. Extremities: Extremities exhibit normal ROM. Neuro: Oriented X 3. No motor deficit. PROGRESS AND PROCEDURES E.D. Course: 13:05. Pt is no longer shaking and appears much better. He stays he still feels a little nervous. Disposition: Discharged home. CLINICAL IMPRESSION Alcohol Withdrawel. INSTRUCTIONS (Please continue on the CIWA protocol. Follow up with your doctor as planned. Please return as needed. ). Prescription Medications: Valium 10 mg: take 1 orally every 6 hours as needed for anxiety. Dispense ten (10). No refill. (Electronically signed by Ruthie Jarvis M.D. 05/20/2008 13:47) Addenda for ZEESHAN ALMODOVAR SR VisitID: [id number] Date: 05/20/2008 05/20/2008 11:08 [facility] REFERRING PT TO ED. AT [facility] FOR ETOH DETOX SINCE . PT WANTED MEDICAL ATTENTION THIS AM, [facility] CAN'T REFUSE PT MEDICAL TREATMENT IF REQUESTED. PT FEELS SOMETHING ELSE IS GOING ON OTHER THAN DETOXING. CONCERN FOR DRUG SEEKING. COMING FOR ED EVAL. signed by Lea Bone 05/20/2008 11:08) Department - Nursing Summary Registration Date/Time: 05/20/2008 11:06 TRIAGE Initial Assessment Triage time 11:10. Acuity: LEVEL 4. BP: 149 / 89. HR: 133. RR: 14. Temp: 36.1 C (tympanic). --1113 Erika Cain R.N.. Medications (dilantin 400mg qd po). --1113 Erika Cain R.N.. Allergies No known drug allergies. --1113 Erika Cain R.N.. History Chief Complaint: (referred to ED from [facility] for Eval, ETOH use last use 5 days ago). Pain level now: 0/10. (pt tremulous). PAST HX: Negative. SOCIAL HX: Cigarette smoker: less than 1 pack per day. Alcohol use. Patient is a longstanding alcoholic. No report of abuse. Historian: patient. Arrived by public transportation. --1113 Erika Cain R.N.. Interventions To room. --1113 Erika Cain R.N.. NURSING PROGRESS NOTES Two patient identifiers checked. Patient gowned. Call light placed in reach. Side rails up x 2. Bedplaced in lowest position. Brakes of bed on. --1205 Monica Esqueda R.N. DIAZEPAM 10 mg diluted with 2 mL NS slow IVP over 1 minute. IV patency established. IV site checked: no pain, redness, or swelling. IV flushed thoroughly pre- and post-medication administration. Sedative drug warning given to the patient. PHENERGAN 6.25 mg diluted with 2 mL NS slow IVP over 1 minute. IV patency established. IV site checked: no pain, redness, or swelling. IV flushed thoroughly pre- and post-medication administration. Sedative drug warning given to the patient. FOLATE 1 mg diluted with 10 mL NS slow IVP over 1 minute. IV patency established. IV site checked: no pain, redness, or swelling. IV flushed thoroughly pre- and post-medication administration. THIAMINE 100 mg diluted with 10 mL NS slow IVP over 1 minute. IV patency established. IV site checked: no pain, redness, or swelling. IV flushed thoroughly pre- and post-medication administration. . --1207 Monica Esqueda R.N. DIAZEPAM 10 mg diluted with 2 mL NS slow IVP over 1 minute. IV patency established. IV site checked: no pain, redness, or swelling. IV flushed thoroughly pre- and post-medication administration. Sedative drug warning given to the patient. . --1244 Monica Esqueda R.N. (Patient states he feels better and wants to go back to [facility]). --1310 Monica Esqueda R.N.. IV / I&O Flowsheet IV Site #1. IV access: right antecubital space. IV started in ED with 20g angiocath using aseptic technique, with good blood return; one attempt. Blood samples drawn from the right antecubital space with syringe by nurse per protocol and sent to lab: purple and tiger top. Line flushed post blood draw with 10 mL normal saline. --1206 Monica Esqueda R.N. IV fluids started. IV bag #1 of 1000 mL NS; rate = wide open. --1206 Monica Esqueda R.N. IV fluids discontinued. IV bag #1. INTAKE: 1000 mL. --1234 Mony Cantor L.P.N. IV site discontinued, catheter intact and dressing applied. --1326 Brianna Fletcher R.N.. DISPOSITION / DISCHARGE BP: 121 / 83. HR: 71. RR: 18. O2 saturation: 98% room air. Condition at departure: improved. Patient reports pain level on departure as 7/10. No learning barriers present. Discharge instructions reviewed with the patient. Reviewed warnings. Reviewed medication. Reviewed referrals. Patient verbalized understanding. Written instructions provided in [place]. ([facility] staff given information on meds ptreiceved in ED and prescription for Valium 10 mg, # 10.). The patient was discharged ([facility]). The patient left the Emergency Department ambulatory and via taxi (voucher arranged by [facility]). --1328 Brianna Fletcher R.N.. Ava Coto R.N., L.P.N., R.N. Locked/Released at 05/20/2008 14:11 by Monica Esqueda R.N. documented in this encounter Plan of Treatment Not on file documented as of this encounter Visit Diagnoses Not on filedocumented in this encounter Care Teams Print Designer Relationship Specialty Start Date End Date Mitchell Del Rosario MD PCP - General 01/08/09 09/24/10 Mitchell Del Rosario MD PCP - General 11/05/08 01/07/09 documented as of this encounter
--- OUTSIDE RECORDS SUMMARY | 2024-02-03 13:17 | XMS_ITS | Encounter Summary ---
Author Organization [facility] Address [address] [place] [address] Care Team Providers Care Space Controller Name Role Phone Jaxon Napier MD Primary Care Provider [phone] Reason for Visit * Reason Comments Other Encounter Details Date Type Department Care Team (Late st Contact Info) Description 01/15/2014 [facility] Adult Neurology - [facility] [address] [place] [address] Sawyer Bolivar MD [address] [place] [address] Other Social History Tobacco Use Types Packs/Day [...] on filedocumented in this encounter Care Teams Space Controller Relationship Specialty Start Date End Date Jaxon Napier MD [address] [id number] PCP - General 05/01/13 05/27/14 documented as of this encounter
--- OUTSIDE RECORDS SUMMARY | 2024-02-03 13:17 | XMS_ITS | Encounter Summary ---
Author Organization [facility] Address [address] [place] [address] Care Team Providers Care Branch Store Manager Name Role Phone Unavailable Primary Care Provider Unavailabl e Encounter Details Date Type Department Care Team (Latest Contact Info) Description 05/18/2008 19:34 EST Hospital Encounter [facility] Emergency Department - [facility] [address] [place] [address] Emergency, Default, MD Discharge Disposition: Home or [...]
--- OUTSIDE RECORDS SUMMARY | 2024-02-03 13:17 | XMS_ITS | Encounter Summary ---
Author Organization [facility] Address [address] [place] [address] Care Team Providers Care Legal Paraprofessional Name Role Phone Unavailable Primary Care Provider Unavailabl e Encounter Details Date Type Department Care Team (Latest Contact Info) Description 10/09/2007 23:51 EDT - 10/10/2007 11:59 EDT Hospital Encounter [facility] Emergency Department - [facility] [address] [place] [address] Emergency, Default, MD Discharge Disposition: Home or [...]
--- OUTSIDE RECORDS SUMMARY | 2024-02-03 13:17 | XMS_ITS | Encounter Summary ---
Author Organization [facility] Address [address] [place] [address] Care Team Providers Care Butter Melter Name Role Phone Jaxon Napier MD Primary Care Provider [phone] Reason for Visit * Reason Onset Date Comments Medication Management 01/01/2014 Encounter Details Date Type Department Care Team (Late st Contact Info) Description 01/01/2014 Telephone [facility] [place] [address] Rula Theodore RN [address] [place] [address] Medication Management Social History Tobacco Use Types [...] encounter Miscellaneous Notes * Telephone Encounter - Rula Theodore RN - 01/05/2014 1338 EDT I called and left detailed message for pt. I asked that he call if questions * Telephone Encounter - Ash Almendarez MD - 01/05/2014 1256 EDT He needs to talk to PCP for RX. * Telephone Encounter - Rula Theodore RN - 01/01/2014 8308 EDT Reason for call: Pharmacy sent e request for refill of Lamictal Pt seen as npv on 02/17/13. Was admitted for EMU in Apr 2013 and discharged 05/05/13. No target events in EMU. EEG was normal. Keppra and Lyrica were stopped during admission and pt was discharged on Lamictal 150 mg, 2 tabs at hs. Current AED: Lamictal 150 mg, 2 tabs at hs Since hospital stay pt canceled fur with Dr Almendarez which had been scheduled for 05/18/13 and 11/16/13. Cited no transportation as reason for cancel each time. Pt is now scheduled to rtc 06/14/14. At discharge from EMU, pt had been given rx for 30 day supply of Lamictal with 4 rfs. I called pharmacy. Pt filled rx on 05/05/13, 07/28/13, 08/21/13, 10/26/13 and 11/23/13. He came in yesterday asking for another refill. I called and left message for pt to call with update. It does not appear that he is taking Lamictalregularly and he is overdue for visit. Request from pharmacy was declined with comment have pt call me Will forward message to Dr Almendarez to see if he would like to provide refill for pt or wait until we hear update from him documented in this encounter Plan of Treatment Not on file documented as of this encounter Visit Diagnoses Not on filedocumented in this encounter Care Teams Butter Melter Relationship Specialty Start Date End Date Jaxon Napier MD [address] [address] PCP - General 05/01/13 05/27/14 documented as of this encounter
--- OUTSIDE RECORDS SUMMARY | 2024-02-03 13:17 | XMS_ITS | Encounter Summary ---
Author Organization [facility] Address [address] [place] [address] Care Team Providers Care Spout Tender Name Role Phone Brian Aleman MD Primary Care Provider [phone] Encounter Details Date Type Department Care Team (Latest Contact Info) Description 02/17/2013 12:41 EDT - 02/17/2013 23:59 EDT Hospital Encounter [facility] [address] [place] [address] Unknown, Provider, Discharge Disposition: Home or Self Care Social [...] by mouth at bedtime. 11/02/2022 lamoTRIgine (LAMICTAL) 200 mg tablet Take 200 [...] Code Departure Means Destination Home or Self Senior Care documented in this encounter Plan of Treatment Not on file documented as of this encounter Visit Diagnoses Not on filedocumented in this encounter Care Teams Spout Tender Relationship Specialty Start Date End Date Brian Aleman MD [address] [place] [phone] PCP - General 02/17/13 04/30/13 documented as of this encounter
--- OUTSIDE RECORDS SUMMARY | 2024-02-03 13:17 | XMS_ITS | Encounter Summary ---
Author Organization [facility] Address [address] [place] [address] Care Team Providers Care Paper Sales Representative Name Role Phone Unknown, Provider Primary Care Provider [phone] Reason for Visit * Reason Comments Medical Evaluation pt sent here from [facility] for med clearance. pt detoxing from ETOH. last drink yesterday. pt very tremulous. c/o abd pain and nausea. pt seen here yesterday and has been taking valium orally which is not helping Encounter Details Date Type Department Care Team (Late st Contact Info) Description 09/26/2010 13:08 EDT - 09/26/2010 16:[address] [facility] Emergency Department - [address] [address] Magali Kothari PA-C [address] [facility], [address] [place] [phone] Jabier Rosales PA [address] [phone] Emergency, MD Franky Alcoholism /alcohol abuse ([facility]); Alcohol withdrawal ([facility]) Discharge Disposition: Home or Self Care Social [...] Sign Reading Time Taken Comments Blood Pressure 143/81 09/26/2010 1523 EDT Pulse - - Temperature 35.5 ??C (95.9 ??F) 09/26/2010 1310 EDT Respiratory Rate 16 09/26/2010 1523 EDT Oxygen Saturation 96% 09/26/2010 1523 EDT Inhaled Oxygen Concentration - - Weight 73.9 kg (163 lb) 09/26/2010 1310 EDT Height - - Body Mass Index - - documented in this encounter Discharge Instructions * Discharge Instructions* Magali Kothari PA - 09/26/2010 16:17 EDT Increase your fluids Plenty of rest Follow up with your doctor as needed Continue with the CIWA protocol at [facility]. Return for worsening symptoms * Attachments The following attachments cannot be sent through Care Everywhere. * LEARNING ABOUT ALCOHOL ABUSE AND ADDICTION IN TEENS (KHMER) * ALCOHOL DETOXIFICATION AND WITHDRAWAL: AFTER YOUR VISIT ([facility]MER) documented in this encounter Medications at Time of Discharge Medication Sig Dispensed Refills Start Date End Date albuterol (PROVENTIL HFA, VENTOLIN HFA) 90 mcg/Actuation inhaler Inhale 2 Puffs as directed every 4 hours. DIAZepam (VALIUM) 5 mg tablet Take 2 Tabs by mouth every 4 hours as needed for Anxiety. 20 Tab 0 09/25/2010 02/17/2013 lamotrigine (LAMICTAL) 25 mg tablet Take 25 mg by mouth daily. 02/17/2013 levetiracetam (KEPPRA) 500 mg tablet Take 500 mg by mouth 2 times daily. 05/05/2013 documented as of this encounter Discharge Disposition Disposition Code Departure Means Destination Comment s Home or Self Care Other [facility]. documented in this encounter ED Notes * Tomas Ramirez RN - 09/26/2010 1632 EDT [facility] given nursing report. [facility] returned to [facility] via [facility] transportation. * Tomas Ramirez RN - 09/26/2010 1523 EDT Patient resting calmly in bed. No extremity tremors observed. Skin pink warm and dry. Respirations unlabored. Patient denies feeling anxious and tremulous. Patient reports is ready to return to [facility]. * Hermelinda Morales - 09/26/2010 1352 EDT Blood drawn from IV site at time of insertion. Kimberly and purple tops to lab. * Magali Kothari PA - 09/26/2010 1331 EDT DOS: 09/26/2010 Chief Complaint Patient presents with ??? Medical Evaluation pt [facility] for med clearance. pt detoxing from ETOH. last drink yesterday. pt very tremulous. c/o abd pain and nausea. pt seen here yesterday and has been taking valium orally which is not helping The patient is a 45 y.o. male who presents today with Medical Evaluation HPI Comments: 45-year-old male patient here with a history of alcohol abuse for over 30 years. Patient states he has been at [facility] for alcohol detox for the past day. Today he is experiencing increased tremors, nausea, abdominal discomfort, chills, and generalized muscular pain. Patient is unclear how much Valium he is receiving at detox but states his last dose was at 11:30 this morning. Pt states he just does not feel right. The history is provided by the patient. Medical Evaluation Associated symptoms include abdominal pain, diarrhea, nausea and headaches. Pertinent negatives include no fever, no vomiting, no neck pain and no cough. Review of Systems Constitutional: Negative for fever and chills. HENT: Negative for neck pain. Respiratory: Positive for shortness of breath. Negative for cough and chest tightness. Cardiovascular: Negative for chest pain. Gastrointestinal: Positive for nausea, abdominal pain and diarrhea. Negative for vomiting. Genitourinary: Negative for dysuria. Musculoskeletal: Negative for back pain. Skin: Negative for wound. Neurological: Positive for weakness and headaches. Psychiatric/Behavioral: The patient is nervous/anxious. All other systems reviewed and are negative. Past Medical History Diagnosis Date ??? ETOH abuse ??? Seizures History reviewed. No pertinent past surgical history. Allergies Allergen Reactions ??? No Known Drug Allergies History Substance Use Topics ??? Smoking status: Current Everyday Smoker -- 1.5 packs/day ??? Smokeless tobacco: Not on file ??? Alcohol Use: Yes 12 pack to a case of beer per day History reviewed. No pertinent family history. Vital Signs Temp: 35.5 ??C (95.9 ??F) Temp src: Tympanic Heart Rate: 77 BPM Resp: 16 SpO2: 96 % SpCO: 12 % BP: 143/81 mmHg BP Device: BP Machine BP Cuff Location: Right arm O2 Device: None (Room air) Physical Exam Nursing note and vitals reviewed. Constitutional: He is oriented to person, place, and time. He appears well- developed and well-nourished. HENT: Head: Normocephalic. Right Ear: External ear normal. Left Ear: External ear normal. Dry mucosa Eyes: Conjunctivae and extraocular motions are normal. Pupils are equal, round, and reactive to light. Neck: Normal range of motion. Neck supple. Cardiovascular: Normal rate and normal heart sounds. No murmur heard. Pulmonary/Chest: Effort normal and breath sounds normal. Abdominal: Soft. Bowel sounds are normal. Tenderness is present. He has no rebound and no guarding. Epigastric and right upper quadrant pain Lymphadenopathy: He has no cervical adenopathy. Neurological: He is alert and oriented to person, place, and time. Skin: Skin is warm and dry. Psychiatric: He has a normal mood and affect. Radiology orders: None Procedures ED Course: A medical screening exam was performed. Pt seen and evaluated, treated, pt sleeping no signs of tremors when pt awoke immediately started to move his arms and extremities, pt cleared to be sent back to [facility]. Disposition: Discharged The patient's pain was managed to an adequate level weighing risk vs. benefit of further medications. Upon departure from the Emergency Department, the patient's pain was 0 on a zero to ten scale. Condition at departure from the Emergency Department: Improved Discharge Prescriptions New Prescriptions No Discharge Prescriptions for this patient MDM Number of Diagnoses or Management Options Alcohol withdrawal: Alcoholism /alcohol abuse: Diagnosis management comments: Alcohol withdrawal, gastritis, pancreatitis, tremors, anxiety 5 Amount and/or Complexity of Data Reviewed Clinical lab tests: ordered and reviewed Review and summarize past medical records: yes 1. Alcoholism /alcohol abuse (303.90R) 2. Alcohol withdrawal (291.81) PCP: DOCTOR SATURNINO, MD Toan Morel 09/27/2010 14:43 * Monica Esqueda - 09/26/2010 1325 EDT TCALL: Fran Justin 1965 TCALL: Pt being brought up by [facility] staff. Currently on CYWA protocol. Has Hx of seizures and is experiencing pain. documented in this encounter Miscellaneous Notes * Scanned Note-Null - Inpatient, Physician - 09/26/2010 0000 EDT documented in this encounter Plan of Treatment Not on file documented as of this encounter Procedures Procedure Name Priority Date/Time Associated Diagnosis Comments COMPLETE BLOOD COUNT AND DIFFERENTIAL STAT 09/26/2010 13:45 EDT BUN STAT 09/26/2010 13:45 EDT LIPASE STAT 09/26/2010 13:45 EDT GLUCOSE, SERUM STAT 09/26/2010 13:45 EDT CREATININE STAT 09/26/2010 13:45 EDT HEPATIC FUNCTION PANEL (ALB,ALK PHOS,ALT,AST,DBIL,TOT ROBB,TOT PROT) STAT 09/26/2010 13:45 EDT ELECTROLYTES STAT 09/26/2010 13:45 EDT documented in this encounter Results * (ABNORMAL) GLUCOSE, SERUM (09/26/2010 13:45 EDT) Glucose, Serum 106(H) 70 - 100 mg/dl [facility] Blood specimen (specimen) 09/26/2010 13:45 EDT 09/26/2010 13:56 EDT Magali BURKETT-C CHEMISTRY & BLOOD GA S ORDERABLES Performing Organization Address [facility] Co de Phone Number [facility] [address] [place] [address] * LIPASE (09/26/2010 13:45 EDT) Lipase 118 0 - 250 U/L [facility] Blood specimen (specimen) 09/26/2010 13:45 EDT 09/26/2010 13:56 EDT Magali BURKETT-C CHEMISTRY & BLOOD GA S ORDERABLES Performing Organization Address [facility] de Phone Number [facility] [address] [place] [address] * LIVER FUNCTION TESTS (09/26/2010 13:45 EDT) Albumin 4.3 3.4 - 4.9 g/dl [facility] Total Protein 7.2 6.5 - 8.3 g/dl [facility] Total Alkaline Phosphatase 62 38 - 126 U/L [facility] ALT 38 21 - 72 U/L [facility] AST 33 15 - 46 U/L [facility] Unconjugated Bilirubin 0.7 0.1 - 1.1 mg/dl [facility] Conjugated Bilirubin 0.0 0.0 - 0.3 mg/dl [facility] Bilirubin, Total 0.7 0.2 - 1.3 mg/dl [facility] Blood specimen (specimen) 09/26/2010 13:45 EDT 09/26/2010 13:56 EDT Magali BURKETT-C CHEMISTRY & BLOOD GA S ORDERABLES Performing Organization Address [facility] Co de Phone Number [facility] [address] [place] [address] * CREATININE (09/26/2010 13:45 EDT) Creatinine 0.80 0.7 - 1.5 mg/dl [facility] GFR, Calculated >60 ml/min/1.7 3m2 [facility] Blood specimen (specimen) 09/26/2010 13:45 EDT 09/26/2010 13:56 EDT Magali Kothari PA-C CHEMISTRY & BLOOD GA S ORDERABLES Performing Organization Address [facility] de Phone Number [facility] [address] [place] [address] * (ABNORMAL) BUN (09/26/2010 13:45 EDT) BUN 9(L) 10 - 26 mg/dl [facility] Blood specimen (specimen) 09/26/2010 13:45 EDT 09/26/2010 13:56 EDT Magali Kothari PA-C CHEMISTRY & BLOOD GA S ORDERABLES Performing Organization Address [facility] Phone Number [facility] [address] [place] [address] * ELECTROLYTES (09/26/2010 13:45 EDT) Sodium 140 136 - 145 mEq/L [facility] Potassium 4.9 3.5 - 5.0 mEq/L [facility] Chloride 102 96 - 110 mEq/L [facility] CO2 29 24 - 32 mEq/L [facility] Blood specimen (specimen) 09/26/2010 13:45 EDT 09/26/2010 13:56 EDT Magali Kothari PA-C CHEMISTRY & BLOOD GA S ORDERABLES Performing Organization Address [facility] de Phone Number [facility] [address] [place] [address] * (ABNORMAL) HEMAGRAM AND DIFFERENTIAL (09/26/2010 13:45 EDT) WBC 8.55 4.0 - 10.4 K/cmm [facility] RBC 4.20(L) 4.36 - 5.78 M/cmm [facility] Hemoglobin 14.8 13.8 - 17.3 gm/dl [facility] HCT 44.2 39.5 - 50.2 % [facility] MCV 105(H) 81 - 95 fl [facility] MCH 35.4(H) 27.6 - 33.0 pg [facility] MCHC 33.6 32.8 - 36.4 gm/dl [facility] PLT 265 141 - 320 K/cmm [facility] RDW-CV 17.9(H) 11.8 - 14.1 % [facility] Neutrophils 77.0 45.5 - 79.7 % [facility] Lymphocytes 12.0(L) 15.0 - 46.8 % [facility] Monocytes 5.0 1.8 - 12.0 % [facility] Eosinophils 5.0 0.6 - 6.9 % [facility] Basophils 1.0 0.2 - 1.4 % [facility] ABS Neutrophils 6.57 2.20 - 8.85 K/cmm [facility] ABS Lymphs 1.03(L) 1.09 - 3.30 K/cmm [facility] ABS Monocytes 0.43 0.1 - 0.8 K/cmm [facility] ABS Eosinophils 0.43 0.03 - 0.61 K/cmm [facility] ABS Basophils 0.09 0.01 - 0.11 K/cmm [facility] RBC Morphology 1+ Anisocytosis 1+ Macrocytes [facility] Type of Diff: Manual [facility] Blood specimen (specimen) 09/26/2010 13:45 EDT 09/26/2010 13:56 EDT Magali Kothari PA-C PACKAGES & DNA PROBE ORDERABLES [facility] [address] [place] [address] documented in this encounter Visit Diagnoses Diagnosis Alcoholism /alcohol abuse Other and unspecified alcohol dependence, unspecified drinking behavior Alcohol withdrawal (HCC-CMS) Alcohol withdrawal documented in this encounter Administered Medications Inactive Administered Medications - up to 3 most recent administrations Medication Order MAR Action Action Date Dose Rate Site diazepam (VALIUM) injection 5 mg, intravenous, NOW X1, 1 dose, On Wed09/26/10 at 1345, STAT Given 09/26/2010 13:53 EDT 5 mg famotidine (PEPCID) 20 mg/2 mL injection 20 mg 20 mg, intravenous, NOW X1, 1 dose, On Wed09/26/10 at 1345, STAT Given 09/26/2010 13:54 EDT 20 mg ondansetron (PF) (ZOFRAN) injection 4 mg 4 mg, intravenous, NOW X1, 1 dose, On Wed09/26/10 at 1345, STAT Given 09/26/2010 13:54 EDT 4 mg sodium chloride 0.9 % 1,000 mL BOLUS 1,000 mL, intravenous, Once (Without Time Specified), 1 dose, Starting on Wed09/26/10 at 1345, Until Wed09/26/10 at 1350, STAT Given 09/26/2010 14:45 EDT 1,000 mL Given 09/26/2010 13:50 EDT 1,000 mL documented in this encounter Discontinued Medications Medication Sig Discontinue Reason Start Date End Da te phenytoin (DILANTIN) 100 mg ER capsule Take 500 mg by mouth at bedtime. 09/26/2010 documented as of this encounter Historical Medications * This list may reflect changes made after this encounter. Medication Sig Dispensed Refills Start Date End Date lamotrigine (LAMICTAL) 25 mg tablet Take 25 mg by mouth daily. 02/17/2013 added in this encounter Active and Recently Administered Medications Times are shown in EDT. Scheduled Medication Order 09/24/2010 09/25/2010 09/26/2010 diazepam (VALIUM) injection (COMPLETED) 5 mg, intravenous, NOW X1, 1 dose, On Wed09/26/10 at 1345, STAT 1353 (Given - Provid er: Erika Cain RN) famotidine (PEPCID) 20 mg/2 mL injection 20 mg (COMPLETED) 20 mg, intravenous, NOW X1, 1 dose, On Wed09/26/10 at 1345, STAT 1354 (Given - Provid er: Erika Cain RN) ondansetron (PF) (ZOFRAN) injection 4 mg (COMPLETED) 4 mg, intravenous, NOW X1, 1 dose, On Wed09/26/10 at 1345, STAT 1354 (Given - Provid er: Erika Cain RN) sodium chloride 0.9 % 1,000 mL BOLUS (COMPLETED) 1,000 mL, intravenous, Once (Without Time Specified), 1 dose, Starting on Wed09/26/10 at 1345, Until Wed09/26/10 at 1350, STAT 1350 (Given - Provid er: Hermelinda Morales)1445 (Given - Provider: Erika Cain RN) documented in this encounter Care Teams Paper Sales Representative Relationship Specialty Start Date End Date Unknown, Provider, PCP - General 09/26/10 09/27/10 documented as of this encounter
--- OUTSIDE RECORDS SUMMARY | 2024-02-03 13:17 | XMS_ITS | Encounter Summary ---
Author Organization [facility] Address [address] [place] [address] Care Team Providers Care Cutter Barrel Drum Name Role Phone Brian Aleman MD Primary Care Provider [phone] Reason for Visit * Reason Comments Seizures Referred by Dr Yaneth saab for seizures. States he had 2 seizures last week. Has them in his sleep at least 1-2 times per week but none this week. Once in awhile has one while awake but mostly in his sleep Encounter Details Date Type Department Care Team (Late st Contact Info) Description 02/17/2013 10:12 EDT - 02/17/2013 12:40 EDT Hospital Encounter [facility] Neurophysiology - [facility] [address] [place] [address] Ash Almendarez MD [address] [facility], Brian. [address] [place] [phone] Unspecified epilepsy with intractable epilepsy (Primary Dx) Discharge Disposition: Home or Self [...] Sign Reading Time Taken Comments Blood Pressure 116/76 02/17/2013 1020 EDT Pulse 100 02/17/2013 1020 EDT Temperature - - Respiratory Rate 20 02/17/2013 1020 EDT Oxygen Saturation - - Inhaled Oxygen Concentration - - Weight 65.8 kg (145 lb) 02/17/2013 1020 EDT Height 162.6 cm (5' 4) 02/17/2013 1020 EDT Body Mass Index 24.89 02/17/2013 1020 EDT documented in this encounter Medications at Time [...] Code Departure Means Destination Home or Self Custodial documented in this encounter Progress Notes * Ash Almendarez MD - 03/26/2013 0566 EDT Attending Addendum: I personally interviewed and examined patient on 02/17/2013. Findings above confirmed. I have reviewed the case in detail with our neurology team and concur with the impression andplan above. documented in this encounter Plan of Treatment Not on file documented as of this encounter Results * MISCELLANEOUS TEST (02/17/2013 13:07 EDT) Test Name LYRICA (PREGABALIN) [facility] Result Pregabalin = <0.5 ug/mL [facility] Ref Range Therapeutic and toxic ranges have not been established. ??Expected steady state pregabalin concentrations in patients taking recommended daily dosages: ??up to 10 ug/mL [facility] Ref Lab Assayed at [facility], [place] [facility] Blood specimen (specimen) 02/17/2013 13:07 EDT 02/17/2013 13:17 EDT Nhan Mendez MD CHEMISTRY & BLOOD GA S ORDERABLES Performing Organization Address [facility] Co de Phone Number [facility] [address] [place] [address] * (ABNORMAL) LEVETIRACETAM (02/17/2013 12:49 EDT) Levetiracetam, S <2.0(L) 12.0 - 46.0 mcg/mL [facility] Comment: Performed by: [facility], [address], [place] [address], Cigar Maker: Joselin Curiel, Ph.D. Blood specimen (specimen) 02/17/2013 12:49 EDT 02/17/2013 13:40 EDT Nhan Mendez MD CHEMISTRY & BLOOD GA S ORDERABLES Performing Organization Address [facility] Co de Phone Number [facility] [address] [place] [address] * LAMOTRIGINE (02/17/2013 12:49 EDT) Lamotrigine, Plasma or Serum 5.7 2.5 - 15.0 mcg/mL [facility] Comment: Performed or Referred by: [facility]: [facility], [facility] [place] [address], Lab Dir: Juan J Vail III, MD Blood specimen (specimen) 02/17/2013 12:49 EDT 02/17/2013 13:40 EDT Nhan Mendez MD CHEMISTRY & BLOOD GA S ORDERABLES [facility] [address] [place] [address] documented in this encounter Visit Diagnoses Diagnosis Unspecified epilepsy with intractable epilepsy- Primary Unspecified epilepsy with intractable epilepsy documented in this encounter Discontinued Medications Medication Sig Discontinue Reason Start Date End Da te DIAZepam (VALIUM) 5 mg tablet Take 2 Tabs by mouth every 4 hours as needed for Anxiety. Patient Stopped Taking 09/25/2010 02/17/2013 lamotrigine (LAMICTAL) 25 mg tablet Take 25 mg by mouth daily. Dose adjustment 02/17/2013 UNKNOWN TO PATIENT Error 02/17/2013 DULOXETINE HCL (CYMBALTA ORAL) Take by mouth daily. Error 02/17/2013 lamoTRIgine (LAMICTAL) 100 mg tablet Take 100 mg by mouth 2 times daily. Error 02/17/2013 pantoprazole (PROTONIX) 20 mg tablet Take 2 Tabs by mouth daily. Error 09/28/2010 02/17/2013 documented as of this encounter Historical Medications * This list may reflect changes made after this encounter. Medication Sig Dispensed Refills Start Date End Date famotidine (PEPCID) 40 mg tablet Take 40 mg by mouth at bedtime. 11/02/2022 Cholecalciferol, Vitamin D3, (VITAMIN D3) 2,000 unit capsule Take 1 Cap by mouth daily. 06/14/2014 Omeprazole 20 mg tablet,delayed release (DR/EC) Take 20 mg by mouth daily. 04/27/2022 pregabalin (LYRICA) 100 mg capsule Take 100 mg by mouth 3 times daily. 05/05/2013 cyclobenzaprine (FLEXERIL) 10 mg tablet Take 10 mg by mouth 3 times daily. 06/14/2014 QUEtiapine (SEROQUEL) 100 mg tablet Take 100 mg by mouth 2 times daily . 03/13/2020 lamoTRIgine (LAMICTAL) 200 mg tablet Take 200 mg by mouth 2 times daily. 05/05/2013 DULOXETINE HCL (CYMBALTA ORAL) Take by mouth daily. 013 lamoTRIgine (LAMICTAL) 100 mg tablet Take 100 mg by mouth 2 times daily. 02/17/2013 added in this encounter Care Teams Cutter Barrel Drum Relationship Specialty Start Date End Date Brian Aleman MD [address] [place] [phone] PCP - General 02/17/13 04/30/13 documented as of this encounter
--- OUTSIDE RECORDS SUMMARY | 2024-02-03 13:17 | XMS_ITS | Encounter Summary ---
Author Organization [facility] Address [address] [place] [address] Care Team Providers Care Revenue Enforcement Agent Name Role Phone Mitchell Del Rosario MD Primary Care Provider Mitchell Bragg MD Primary Care Provider Braeden johnson Encounter Details Date Type Department Care Team (Late st Contact Info) Description 05/18/2008 Office Visit [facility] [address] [place] [address] Blake Melgar MD [address] [facility], [address] [place] [id number] Social History Tobacco Use Types Packs/Day Years Used Date Smoking Tobacco: Never Assessed Sex and Gender Information Value Date Recorded Sex Assigned at Not on file Gender Identity Male 11/20/2019 11:35 EDT Sexual Orientation Not on file documented as of this encounter Progress Notes * Blake Melgar MD - 07/12/2009 1503 EST Department - Physician Summary Registration Date/Time: 05/17/2008 19:10 Time Seen: 20:33. Historian- patient. HISTORY OF PRESENT ILLNESS Chief Complaint: GOT THE SHAKES. Wants to stop drinking. Referred for medical clearance. Wants toenter detox program. Symptoms started today. Duration of substance abuse- years. Substances abused:[facility] feels that this pt is at high risk of seizure. He has had nausea, vomiting and tremors. No fever, chills,diarrhea or abdominal pain. No seizure (has had this in the past). No difficulty walking. The symptoms are described as moderate. No injuries noted. No recent fall. The patient has had similar symptoms previously. The patient was seen recently by a health care provider ([facility]). REVIEW OF SYSTEMS The patient has experienced sweats but not had weight loss. No dizziness, weakness, chest pain, black stools or bloody stools. No difficulty breathing or joint pain. All systems otherwise negative, except as recorded above. PAST HISTORY History of alcoholism. No history of cirrhosis. Medications: The patient's medications have been reviewed. Allergies: The patient's allergies have been reviewed. SOCIAL HISTORY Smoker. Alcohol use. Has social support (comes here with and child). PHYSICAL EXAM Appearance: Alert. Patient in mild distress. tremulous. Vital Signs: Have been reviewed- tachycardic. Eyes: Pupils equal, round and reactive to light. ENT: Mildly dry mucous membranes present. Neck: Normal inspection. Neck supple. CVS: Normal heart rate and rhythm. Heart sounds normal. No cardiac murmur. Respiratory: No respiratory distress. Breath sounds normal. No wheezes. Abdomen: Abdomen soft and nontender. Back: Normal inspection. Skin: Normal skin color. Skin warm and dry. No diaphoresis. Extremities: Extremities exhibit normal ROM. No lower extremity edema. Neuro: Alert. Oriented X 3. Mood/affect normal. No motor deficit. No sensory deficit. PROGRESS AND PROCEDURES E.D. Course: 22:04. HR: 110. RR: 18 regular (unlabored). O2 saturation: 95 % room air. Looks well, less trenulous, has had 2 liters of fluid, and does not appear to be at risk of sz with BDZ IV, and SP, with observation at [facility]. Patient/family counseled. Old medical records reviewed. Disposition: Discharged home (to [facility]). Discharged home in fair condition and improved condition (to [facility]). CLINICAL IMPRESSION Alcohol withdrawal. INSTRUCTIONS Stay with responsible adult family member (or other responsible adult [facility]). No strenuous activitytoday. Warnings: SEDATIVE MEDICATION: You were given sedative medication in the emergency department. Do not drive or operate dangerous machinery for 8 hours. Prescription Medications: Diazepam 5 mg: take 1-2 orally every 6 hours as needed for anxiety. Dispense ten (10). No refill (to be dispensed by [facility] only). Follow-up: Return to the emergency department seizures, vomting, belly pain, chest pain, or other problems. Follow up with your doctor when you get out of [facility]. (Electronically signed by Yusuf Melgar M.D. 05/21/2008 6:47) ZEESHAN Charles SR VisitID: [id number] Date: 05/17/2008 05/17/2008 18:56 pt coming from [facility] for clearance, [facility] reports pt with JAZ 0.367 currently, family with pt reports pt with h/o SZ at night when JAZ drops; [facility] req assist to prevent SZ or obs until JAZ decreases to ensure no SZ signed by Belem Pendleton R.N. - 05/17/2008 18:56) Department - Nursing Summary Registration Date/Time: 05/17/2008 19:10 TRIAGE Initial Assessment Triage time 19:11 May 17 2008. Acuity: LEVEL 3. BP: 151 / 87. HR: 122. RR: 20. Temp: 36.8 tympanic. Alert. --1915 Amanda Santillan R.N.. Medications Dilantin: daily (400 mg / ETOH related seizures ). --1915 Amanda Santillan R.N.. Allergies No known drug allergies. --1915 Amanda Santillan R.N.. History Chief Complaint: (Reffered to ED by [facility] fpr med eval Pt states last drink a few hours ago. + handtremors in triage ). Pain level now: 0/10. Treatment WEBSITE PROGRAMMER: None. PAST HX: (Siezures ). SOCIAL HX: Cigarette smoker: 1-2 packs per day. Heavy alcoholuse; consumes 12- pack of beer a day. Arrived by private vehicle and accompanied by family. Historian: patient. --1915 Amanda Santillan R.N.. NURSING PROGRESS NOTES Blood samples drawn from the right antecubital space with syringe by tech per protocol and sent to lab: [facility]. Line flushed post blood draw with 10 mL normal saline. --2048 Liz Fry, E.M.T. VALIUM 5 mg diluted with IV fluid slow IVP. IV patency established. IV site checked: no pain, redness, or swelling. IV flushed thoroughly pre- and post- medication administration. Sedative drug warning given to the patient. . --2103 Gilbert Torres R.N. (reevaled by [facility]). --2144 Bailee ValenzuelaN. HR: 110. RR: 18 regular (unlabored). O2 saturation: 95 % room air. VALIUM 5 mg diluted with IV fluid slow IVP. IV patency established. IV site checked: no pain, redness, or swelling. IV flushed thoroughly pre- and post-medication administration. Sedative drug warning given to the patient. . --2154 Gilbert Torres R.N. (pt blew .243 on breathylizer with good effort). --2225 Liz Fry E.M.T. BP: 137 / 81. HR: 110. RR: 18 regular (unlabored). O2 saturation: 95 % room air. VALIUM SP sealed for [facility] PO. Sedative drug warning given to the patient. . --2243 Gilbert Torres RTuyetN.. IV / I&O Flowsheet IV access: right antecubital space. IV started in ED with 18g angiocath using aseptic technique, with good blood return; one attempt. Saline lock placed and flushed with 5 mL normal saline. --2048 Liz Fry E.M.T. IV bag #1 of 1000 mL D5 NS with 100 mg Thiamine and 2 grams Magnesium Sulfate. --2103 Gilbert Torres R.N. IV fluids discontinued. IV bag #1; 1000 ml infused. --2154 Gilbert Torres R.N.. DISPOSITION / DISCHARGE IV site discontinued, catheter intact. Condition at departure: improved and stable. Patient reportspain level on departure as 0/10. No learning barriers present. Discharge instructions reviewed withthe patient. Reviewed medication (for [facility]). Reviewed referral to family practice for followup. Patient verbalized understanding. Written instructions provided in [place]ian. The patient was discharged to the rehab facility. The patient left the Emergency Department ambulatory. --2243 Gilbert Torres R.N.. Manfred Reynolds R.N.. Gilbert Torres R.N. Locked/Released at 05/17/2008 23:24 by Gilbert Torres R.N. * Blake Melgar MD - 07/12/2009 1400 EST Department - Physician Summary Registration Date/Time: 05/18/2008 19:34 Time Seen: 20:21. Historian- patient. HISTORY OF PRESENT ILLNESS Chief Complaint: GOT THE SHAKES, TREMORS and AGITATED. Wants to stop drinking. Referred for medical clearance. Substances abused: Alcohol. sent back from [facility] because he was w/d too hard. He has had nausea and tremors and been agitated. No fever, chills, vomiting, diarrhea or abdominal pain. No seizure, delusions, hallucinations or suicidal thoughts. Not confused or paranoid. Has not been depressed. The symptoms are described as moderate. No injuries noted. was sent here from [facility] at thept request, [facility] would have managed this pt there. The patient has had similar symptoms several times previously. The patient was seen recently in the emergency department. (and referreed to [facility] after). REVIEW OF SYSTEMS The patient has experienced sweats and had dizziness and weakness but not had weight loss. No chestpain, palpitations, sore throat, cough or difficulty breathing. No difficulty with urination or skin abscess. shakes. All systems otherwise negative, except as recorded above. PAST HISTORY See nurses notes. History of alcoholism. Medications: The patient's medications have been reviewed. Allergies: The patient's allergies have been reviewed. SOCIAL HISTORY Alcohol use. Has place to stay ([facility]). PHYSICAL EXAM Appearance: Alert. Patient in mild distress. Odor of alcohol is not present. Vital Signs: Have been reviewed (- P 112 - BP 164 /). Head: Head atraumatic. Eyes: Pupils equal, round and reactive to light. ENT: Airway intact. Mildly dry mucous membranes present. Neck: Normal inspection. CVS: Tachycardia. Heart sounds normal. Respiratory: No respiratory distress. Breath sounds normal. Abdomen: Abdomen soft and nontender. No abdominal tenderness. Back: Normal inspection. Skin: Normal skin color. Skin warm and dry. No diaphoresis. Extremities: Extremities exhibit normal ROM. No lower extremity edema. Neuro: Alert. Oriented X 3. Mood/affect normal. No cerebellar findings. No motor deficit. PROGRESS AND PROCEDURES Mika Course: 21:17. less tremulous, mentating well and ready to go back. He feels better, and wouldlike to go back now. Have called [facility]. . Patient/family counseled. Old medical records reviewed. Disposition: Discharged home. Discharged home (to [facility]). CLINICAL IMPRESSION Alcohol withdrawal. INSTRUCTIONS Stay with responsible adult family member (or other responsible adult at [facility]). No strenuous activity until better. (Cleared to be at [facility] to detox as outpt.). Warnings: SEDATIVE MEDICATION: You were given sedative medication in the emergency department. Do not drive or operate dangerous machinery for 8 hours. Your Current Medications: Continue current medications (including dilantin). Follow-up: Return to the emergency department seizures, acting bizarrley, vomiting, other concerns. Follow up with your doctor when you leave [facility]. (Electronically signed by Yusuf Melgar M.D. 05/25/2008 9:33) Addenda for NISHI SUMMERSZEESHAN VisitID: [id number] Date: 05/18/2008 05/18/2008 19:36 referred to ed by [facility] - [facility] signed by Kia Altamirano - 05/18/2008 19:36) Department - Nursing Summary Registration Date/Time: 05/18/2008 19:34 TRIAGE Initial Assessment Triage time 19:41. Acuity: LEVEL 4. BP: 164 / 98. HR: 112. RR: 20. Temp: 36.8 tympanic. Alert. No acute distress. --1944 Sulma Cat R.N.. Medications (Dilantin 300mg Daily (due for dose this em) last rec'd meds for CIWA protocol at 1730). --1944 Sulma Cat R.N.. Allergies No known drug allergies. --1944 Sulma Cat R.N.. History Chief Complaint: (High CIWA scale). This started today. Pain level now: 0/10. 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 SOCIAL HX: Smoker: less than 1 pack per day. Alcohol use (currently in detox at [facility]). Arrived by private vehicle and accompanied by ([facility] Staff). Historian: patient. (Referred to ED by[facility]-there for detox since yesterday but scoring high on CIWA scale despite meds. Pt has sz hx r/tto EtOH withdrawal). --1944 Sulma Cat R.N.. NURSING PROGRESS NOTES DIAZEPAM 5 mg Late entry: done at 2009 slow IVP over 2 minutes. IV patency established. IV site checked: no pain, redness, or swelling. IV flushed thoroughly pre- and post-medication administration. Sedative drug warning given to the patient. . --2016 Marisel Jorge R.N. (Pt sleeping.). Overall patient status is improved- the patient states feels better. --2030 Marisel Jorge R.N. (TC to [facility]: reported pt's progress and discharge. Sara at [facility] reports someone will come to get pt when discharged.). --2114 Marisel Jorge R.N.. IV / I&O Flowsheet IV Site #1. IV access: leftantecubital space. IV started in ED with 20g angiocath; one attempt. --1955 Evelia Franco. DISPOSITION / DISCHARGE BP: 152 / 58. HR: 80. RR: 17. Temp: 36.6 tympanic. IV site discontinued, catheter intact. Conditionat departure: improved. Patient reports pain level on departure as 0/10. (Pt noted to not be shaking, reports is better Pt being prepared for discharge.). --2115 Marisel Jorge R.N. learning barriers present. Discharge instructions reviewed with the patient. Reviewed medication (Diazepam SP sealed in envelope with DC papers and [facility] paperwork). Patient verbalized understanding. Written instructions provided in [place]ian. 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 The patient was discharged ([facility]/ report to Lisa). --2131 Marisel Jorge R.N.. Evelia Barriga R.N., R.N. Locked/Released at 05/18/2008 22:57 by Marisel Jorge R.N. documented in this encounter Plan of Treatment Not on file documented as of this encounter Visit Diagnoses Not on filedocumented in this encounter Care Teams Revenue Enforcement Agent Relationship Specialty Start Date End Date Mitchell Del Rosario MD PCP - General 01/08/09 09/24/10 Mitchell Del Rosario MD PCP - General 11/05/08 01/07/09 documented as of this encounter
--- OUTSIDE RECORDS SUMMARY | 2024-02-03 13:17 | XMS_ITS | Encounter Summary ---
Author Organization [facility] Address [address] [place] [address] Care Team Providers Care Chiropractic Doctor Name Role Phone Brian Aleamn MD Primary Care Provider [phone] Encounter Details Date Type Department Care Team (Late st Contact Info) Description 02/17/2013 Phlebotomy Only [facility] [address] [place] [address] Fitness Teacher, Outpatient Unspecified epilepsy with intractable epilepsy Social History Tobacco Use Types Packs/Day Years [...] on file documented as of this encounter Plan of Treatment Not on file documented as of this encounter Procedures Procedure Name Priority Date/Time Associated Diagnosis Comments MISCELLANEOUS TEST, MERRIFIELD Routine 02/17/2013 13:07 EDT Unspecified epilepsy with intractable epilepsy LEVETIRACETAM, SERUM (KEPPRA) Routine 02/17/2013 12:49 EDT Unspecified epilepsy with intractable epilepsy LAMOTRIGINE Routine 02/17/2013 12:49 EDT Unspecified epilepsy with intractable epilepsy documented in this encounter Results * MISCELLANEOUS TEST (02/17/2013 13:07 EDT) Test Name LYRICA (PREGABALIN) [facility] Result Pregabalin = <0.5 ug/mL [facility] Ref Range Therapeutic and toxic ranges have not been established. ??Expected steady state pregabalin concentrations in patients taking recommended daily dosages: ??up to 10 ug/mL [facility] Ref Lab Assayed at [facility], [place] [facility] Blood specimen (specimen) 02/17/2013 13:07 EDT 02/17/2013 13:17 EDT Nhan Mendez MD CHEMISTRY & BLOOD GA S ORDERABLES Performing Organization Address [facility] de Phone Number [facility] [address] [place] [address] * (ABNORMAL) LEVETIRACETAM (02/17/2013 12:49 EDT) Levetiracetam, S <2.0(L) 12.0 - 46.0 mcg/mL [facility] Comment: Performed by: [facility], [address], [place] [address], External Grinder: Joselin Curiel, Ph.D. Blood specimen (specimen) 02/17/2013 12:49 EDT 02/17/2013 13:40 EDT Nhan Mendez MD CHEMISTRY & BLOOD GA S ORDERABLES Performing Organization Address [facility] Phone Number [facility] [address] [place] [address] * LAMOTRIGINE (02/17/2013 12:49 EDT) Lamotrigine, Plasma or Serum 5.7 2.5 - 15.0 mcg/mL [facility] Comment: Performed or Referred by: [facility]: [facility], [address] [place] [address], Lab Dir: Juan J Vail III, MD Blood specimen (specimen) 02/17/2013 12:49 EDT 02/17/2013 13:40 EDT Nhan Mendez MD CHEMISTRY & BLOOD GA S ORDERABLES Performing Organization Address [facility]/State/ZIP Co de Phone Number [facility] [address] [place] [address] documented in this encounter Visit Diagnoses Diagnosis Unspecified epilepsy with intractable epilepsy documented in this encounter Care Teams Chiropractic Doctor Relationship Specialty Start Date End Date Brian Aleman MD [address] [place] [phone] PCP - General 02/17/13 04/30/13 documented as of this encounter
--- OUTSIDE RECORDS SUMMARY | 2024-02-03 13:17 | XMS_ITS | Encounter Summary ---
Author Organization [facility] Address [address] [place] [address] Care Team Providers Care Production Graphic Designer Name Role Phone Lynn Solis Iris QUALITY INTERN Primary Care Provider [phone] Encounter Details Date Type Department Care Team (Late st Contact Info) Description 06/15/2014 Orders Only [facility] Neurophysiology - [facility] [address] [place] [address] Rula Theodore, RN [address] [place] [address] Social History Tobacco Use Types Packs/Day Years [...] Procedure Name Priority Date/Time Associated Diagnosis Comments LAMOTRIGINE Routine 02/02/2014 13:17 EDT COMPLETE BLOOD COUNT Routine 02/02/2014 13:17 EDT COMPREHENSIVE METABOLIC PANEL (CMP) Routine 02/02/2014 13:17 EDT documented in this encounter Results * HEMAGRAM (02/02/2014 13:17 EDT) HCT, External 47 [facility] MCH, External 33.3 [facility] MCV, External 102 [facility] MCHC, External 32.8 [facility] Hemoglobin, External 15.5 [facility] WBC, External 10.3 [facility] RBC, External 4.66 [facility] PLT, External 321 [facility] RDW-CV, External [facility] Blood specimen (specimen) 02/02/2014 13:17 EDT Brian Cardenas MD HEMATOLOGY & PF4 ORD ERABLES [facility] * COMPREHENSIVE METABOLIC PANEL (CMP) (02/02/2014 13:17 EDT) Pathologist [facility] GFR, Calculated, External >120 [facility] Glucose, Serum, External 198 [facility] Albumin, External 3.7 [facility] Total Alkaline Phosphatase, External 54 [facility] ALT, External 28 [facility] AST, External 16 [facility] BUN, External 7 [facility] Calculated Calcium, External [facility] Calcium, External 8.8 [facility] Chloride, External 103 [facility] CO2, External 27 [facility] Creatinine, External 0.67 [facility] Fasting?, External [facility] Potassium, External 4.3 [facility] Sodium, External 139 [facility] Total Protein, External 7.2 [facility] Bilirubin, Total, External 0.2 [facility] Blood specimen (specimen) 02/02/2014 13:17 EDT Brian Cardenas MD CHEMISTRY & BLOOD GA S ORDERABLES [facility] * LAMOTRIGINE (02/02/2014 13:17 EDT) Pathologist [facility] Lamotrigine, Plasma or Serum, External 4.7 [facility] Blood specimen (specimen) 02/02/2014 13:17 EDT Brian Cardenas MD CHEMISTRY & BLOOD GA S ORDERABLES [facility] documented in this encounter Visit Diagnoses Not on filedocumented in this encounter Care Teams Production Graphic Designer Relationship Specialty Start Date End Date Lynn Solis, QUALITY INTERN [address] [place] [address] PCP - General 05/28/14 09/15/21 documented as of this encounter
--- OUTSIDE RECORDS SUMMARY | 2024-02-03 13:17 | XMS_ITS | Encounter Summary ---
Author Organization [facility] Address [address] [place] [address] Care Team Providers Care Health Insurance Adjuster Name Role Phone Jaxon Napier MD Primary Care Provider [phone] Reason for Visit * Reason Comments Other Encounter Details Date Type Department Care Team (Late st Contact Info) Description 12/31/2013 [facility] Adult Neurology - [facility] [address] [place] [address] Sawyer Bolivar MD [address] [place] [address] Other Social History Tobacco Use Types Packs/Day [...] on filedocumented in this encounter Care Teams Health Insurance Adjuster Relationship Specialty Start Date End Date Jaxon Napier MD [address] [id number] PCP - General 05/01/13 05/27/14 documented as of this encounter
--- OUTSIDE RECORDS SUMMARY | 2024-02-03 13:17 | XMS_ITS | Encounter Summary ---
Author Organization [facility] Address [address] [place] [address] Care Team Providers Care Duster Tender Name Role Phone Leo Gaytan MD Primary Care Provider Un available Reason for Visit * Reason Comments Medical Evaluation Pt states sent to ED by [facility] staff for re-evaluation Pt states mouth is dry and I'm lightheaded all the time. I just don't feel well Pt has been at [facility] since . Pt has hx ETOH Encounter Details Date Type Department Care Team (Late st Contact Info) Description 09/28/2010 20:24 EDT - 09/29/2010 0:33 EDT Emergency [facility] Emergency Department - [place] [address] [place] [address] Maj Vogel MD [address] [place] [phone] Gracie Yang MD [address] [facility], Level 1 [place] [phone] Emergency, MD Franky Dehydration; Alcoholism ([facility]); Epigastric pain Discharge Disposition: Home or Self Care Social [...] Sign Reading Time Taken Comments Blood Pressure 131/80 09/29/2010 0014 EDT Pulse 80 09/29/2010 0014 EDT Temperature 36.8 ??C (98.2 ??F) 09/28/2010 2113 EDT Respiratory Rate 16 09/29/2010 0014 EDT Oxygen Saturation 96% 09/29/2010 0014 EDT Inhaled Oxygen Concentration - - Weight - - Height - - Body Mass Index - - documented in this encounter Discharge Instructions * Discharge Instructions* Maj Vogel MD - 09/28/2010 23:50 EDT Plenty of fluids Continue current therapy Please return if worsening symptoms or any new concerns * Attachments The following attachments cannot be sent through Care Everywhere. * ALCOHOL DETOXIFICATION AND WITHDRAWAL: AFTER YOUR VISIT (CROATIAN) documented in this encounter Medications at Time [...] mg by mouth 2 times daily. 05/05/2013 pantoprazole (PROTONIX) 20 mg tablet Take 2 Tabs by mouth daily. 15 Tab 0 09/28/2010 02/17/2013 UNKNOWN TO PATIENT 3 documented as of this encounter Ordered Prescriptions Prescription Sig Dispensed Refills Start Date End Da te pantoprazole (PROTONIX) 20 mg tablet Take 2 Tabs by mouth daily. 15 Tab 0 09/28/2010 02/17/2013 documented in this encounter Discharge Disposition Disposition Code Departure Means Destination Home or Self Care Car Other documented in this encounter ED Notes * Gracie Yang MD - 09/29/2010 0125 EDT [facility] called and asking about meds, doses and times given I relayed info from [facility] and They were satisfied with info * Sammie Mahan - 09/29/2010 0028 EDT [facility] notified of pt's discharge. PT sent to waiting area to wait for [facility] driver license agent. Offering no complaints at this time. * Perez Muhammad RN - 09/29/2010 0014 EDT Patient given turkey sandwich. * Collette Hernández RN - 09/28/20103 EDT IV established per protocol, labs drawn and sent to order, pt tolerated well. * Maj Vogel MD - 09/28/20102203 EDT DOS: 09/28/2010 Chief Complaint Patient presents with ??? Medical Evaluation Pt states sent to ED by [facility] staff for re-evaluation Pt states mouth is dry and I'm lightheadedall the time. I just don't feel well Pt has been at [facility] since . Pt has hx ETOH The patient is a 45 y.o. male who presents today with Medical Evaluation HPI Comments: Patient presents for repeat evaluation from [facility]. Patient states he hurts all over since this morning. He states his blood pressure was high, his legs and his arms hurt. He has some sharp pain in his epigastrium. He has been nauseated without vomiting. He has poor p.o. Intake. His lips feel dry. Patient is questioning whether or not he had a grand mal seizure during his sleep. He did not awaken with tongue biting or urinary incontinence. He does does note some diarrhea without blood. There is no fever. He does have a cough with his fatigue.He denies chest pain or syncope. Patient drinks one case of beer every day. He denies street drugs or opiate addiction. He lives in [place]. Medical Evaluation The current episode started today. The problem occurs frequently. The problem has not changed sinceonset. The problem is mild. Nothing relieves the symptoms. Associated symptoms include diarrhea, nausea, muscle aches and cough. Pertinent negatives include no fever, no photophobia, no abdominal pain, no headaches, no neck pain, no neck stiffness and no rash. The history is provided by the patient. Review of Systems Constitutional: Positive for fatigue. Negative for fever and chills. HENT: Negative for neck pain and neck stiffness. Eyes: Negative for photophobia and visual disturbance. Respiratory: Positive for cough. Negative for shortness of breath. Cardiovascular: Negative for chest pain. Gastrointestinal: Positive for nausea and diarrhea. Negative for abdominal pain. Genitourinary: Negative for dysuria. Musculoskeletal: Positive for myalgias. Negative for back pain. Skin: Negative for rash. Neurological: Negative for headaches. Psychiatric/Behavioral: Negative for confusion. All other systems reviewed and are negative. Past Medical History Diagnosis Date ??? ETOH abuse ??? Seizures Past Surgical History Procedure Date ??? Hernia repair abd hernia repair ??? Tonsillectomy Allergies Allergen Reactions ??? No Known Drug Allergies History Substance Use Topics ??? Smoking status: Current Everyday Smoker -- 1.5 packs/day ??? Smokeless tobacco: Not on file ??? Alcohol Use: Yes 12 pack to a case of beer per day History reviewed. No pertinent family history. Vital Signs Temp: 36.8 ??C (98.2 ??F) Temp src: Tympanic Pulse: 93 Resp: 18 SpO2: 99 % BP: 126/77 mmHg BP Device: BP Machine O2 Device: None (Room air) Physical Exam Nursing note and vitals reviewed. Constitutional: He appears well-developed and well-nourished. Mildly tremulous HENT: Head: Normocephalic and atraumatic. Right Ear: External ear normal. Left Ear: External ear normal. Nose: Nose normal. Mucosa slightly dry Eyes: Pupils are equal, round, and reactive to light. Right eye exhibits no discharge. Left eye exhibits no discharge. Neck: Normal range of motion. Neck supple. No tracheal deviation present. Cardiovascular: Normal rate, regular rhythm, normal heart sounds and intact distal pulses. No murmur heard. Pulmonary/Chest: Effort normal and breath sounds normal. No respiratory distress. Abdominal: Soft. Tenderness (mild, epigastrium. No RUQ tenderness. ) is present. Musculoskeletal: Normal range of motion. He exhibits no edema and no tenderness. Neurological: He is alert. He has normal strength. He is not disoriented. No sensory deficit. Skin: Skin is warm and dry. No rash noted. Psychiatric: He has a normal mood and affect. Radiology orders: CHEST PA AND LATERAL CHEST PA AND LATERAL (Results Pending) Procedures ED Course: A medical screening exam was performed. IVF, protonix, tylenol given. CXR reviewed and negative forinfiltrate. Labs Reviewed BUN - Abnormal; Notable for the following: ??? BUN 7 (*) All other components within normal limits HEMAGRAM AND DIFFERENTIAL - Abnormal; Notable for the following: ??? RBC 4.23 (*) ??? MCV 105 (*) ??? MCH 35.7 (*) ??? RDW-CV 17.6 (*) ??? Monocytes 12.3 (*) ??? ABS Monocytes 1.06 (*) All other components within normal limits ELECTROLYTES CREATININE LIVER FUNCTION TESTS MAGNESIUM LIPASE Disposition: Discharged The patient's pain was managed to an adequate level weighing risk vs. benefit of further medications. Upon departure from the Emergency Department, the patient's pain was 1 on a zero to ten scale. Condition at departure from the Emergency Department: Improved Discharge Prescriptions New Prescriptions No Discharge Prescriptions for this patient MDM Number of Diagnoses or Management Options Alcoholism: Dehydration: Epigastric pain: Diagnosis management comments: 08/01 1. Dehydration (276.51) 2. Alcoholism (303.90D) 3. Epigastric pain (789.06E) PCP: DOCTOR SATURNINO MD 09/28/2010 22:04 * Katey Ceballos - 09/28/20102035 EDT TCALL: ZEESHAN ALMODOVAR 1965 REFERRED BY [facility] FOR RE-EVAL OF STOMACH PAIN AND GENERAL DISCOMFORT(LYF). documented in this encounter Miscellaneous Notes * Scanned Note-Null - Inpatient, Physician - 09/28/2010 0000 EDT documented in this encounter Plan of Treatment Not on file documented as of this encounter Procedures Procedure Name Priority Date/Time Associated Diagnosis Comments CHEST PA AND LATERAL STAT 09/28/2010 22:17 EDT COMPLETE BLOOD COUNT AND DIFFERENTIAL STAT 09/28/2010 22:07 EDT BUN STAT 09/28/2010 22:07 EDT MAGNESIUM STAT 09/28/2010 22:07 EDT LIPASE STAT 09/28/2010 22:07 EDT CREATININE STAT 09/28/2010 22:07 EDT HEPATIC FUNCTION PANEL (ALB,ALK PHOS,ALT,AST,DBIL,TOT ROBB,TOT PROT) STAT 09/28/2010 22:07 EDT ELECTROLYTES STAT 09/28/2010 22:07 EDT documented in this encounter Results * CHEST PA AND LATERAL (09/28/2010 22:17 EDT) Anatomical Region Laterality Modality Other 09/28/2010 22:1 7 EDT 09/29/2010 8:56 EDT Narrative 09/29/2010 8:56 EDT CHEST PA AND LAT ??September 28, 2010 10:17:00 PM Clinical history/Comments: cough, fatigue, alcoholism Comparison: None. Findings: PA and lateral views of the chest were obtained. The bones and soft tissues are unremarkable. The cardiomediastinal contours and pulmonary vasculature are normal. The lungs are clear. There is no consolidation, pneumothorax or pleural effusion. Impression: Normal chest. I have personally reviewed the images and the above interpretation and agree with the findings. Procedure Note Shakeel Mccormick MD - 09/29/2010 CHEST PA AND LAT September 28, 2010 10:17:00 PM Clinical history/Comments: cough, fatigue, alcoholism Comparison: None. Findings: PA and lateral views of the chest were obtained. The bones and soft tissues are unremarkable. The cardiomediastinal contours and pulmonary vasculature are normal. The lungs are clear. There is no consolidation, pneumothorax or pleural effusion. Impression: Normal chest. I have personally reviewed the images and the above interpretation and agree with the findings. Maj Jaspreet [facility] IMG DIAGNOSTIC IMAGI NG ORDERABLES * LIPASE (09/28/2010 22:07 EDT) Lipase 124 0 - 250 U/L [facility] Blood specimen (specimen) 09/28/2010 22:07 EDT 09/28/2010 22:13 EDT Maj Jaspreet CORRALES CHEMISTRY & BLOOD GA S ORDERABLES [facility] [address] [place] [address] * (ABNORMAL) HEMAGRAM AND DIFFERENTIAL (09/28/2010 22:07 EDT) WBC 8.68 4.0 - 10.4 K/cmm [facility] RBC 4.23(L) 4.36 - 5.78 M/cmm [facility] Hemoglobin 15.1 13.8 - 17.3 gm/dl [facility] HCT 44.3 39.5 - 50.2 % [facility] MCV 105(H) 81 - 95 fl [facility] MCH 35.7(H) 27.6 - 33.0 pg [facility] MCHC 34.1 32.8 - 36.4 gm/dl [facility] PLT 298 141 - 320 K/cmm [facility] RDW-CV 17.6(H) 11.8 - 14.1 % [facility] % Neutrophils 66.2 45.5 - 79.7 % [facility] % Lymphocytes 19.2 15.0 - 46.8 % [facility] % Monocytes 12.3(H) 1.8 - 12.0 % [facility] % Eosinophils 2.0 0.6 - 6.9 % [facility] % Basophils 0.3 0.2 - 1.4 % [facility] ABS Neutrophils 5.76 2.20 - 8.85 K/cmm [facility] ABS Lymphs 1.66 1.09 - 3.30 K/cmm [facility] ABS Monocytes 1.06(H) 0.1 - 0.8 K/cmm [facility] ABS Eosinophils 0.17 0.03 - 0.61 K/cmm [facility] ABS Basophils 0.02 0.01 - 0.11 K/cmm [facility] Type of Diff: Automated [facility] Blood specimen (specimen) 09/28/2010 22:07 EDT 09/28/2010 22:13 EDT Maj Jaspreet CORRAL[facility] PACKAGES & DNA PROBE ORDERABLES Performing Organization Address [facility] de Phone Number [facility] [address] [place] [address] * MAGNESIUM (09/28/2010 22:07 EDT) Magnesium 2.0 1.7 - 2.8 mg/dl [facility] Blood specimen (specimen) 09/28/2010 22:07 EDT 09/28/2010 22:13 EDT Maj Jaspreet CORRALES CHEMISTRY & BLOOD GA S ORDERABLES Performing Organization Address [facility] [place] [address] * LIVER FUNCTION TESTS (09/28/2010 22:07 EDT) Albumin 4.3 3.4 - 4.9 g/dl [facility] Total Protein 7.4 6.5 - 8.3 g/dl [facility] Total Alkaline Phosphatase 55 38 - 126 U/L [facility] ALT 33 21 - 72 U/L [facility] AST 23 15 - 46 U/L [facility] Unconjugated Bilirubin 0.5 0.1 - 1.1 mg/dl [facility] Conjugated Bilirubin 0.0 0.0 - 0.3 mg/dl [facility] Bilirubin, Total 0.6 0.2 - 1.3 mg/dl [facility] Blood specimen (specimen) 09/28/2010 22:07 EDT 09/28/2010 22:13 EDT Maj Jaspreet CORRALES CHEMISTRY & BLOOD GA S ORDERABLES Performing Organization Address [facility] Co de Phone Number [facility] [address] [place] [address] * CREATININE (09/28/2010 22:07 EDT) Creatinine 0.70 0.7 - 1.5 mg/dl [facility] GFR, Calculated >60 ml/min/1.7 3m2 [facility] Blood specimen (specimen) 09/28/2010 22:07 EDT 09/28/2010 22:13 EDT Maj Jaspreet CORRALES CHEMISTRY & BLOOD GA S ORDERABLES Performing Organization Address [facility] de Phone Number [facility] [address] [place] [address] * (ABNORMAL) BUN (09/28/2010 22:07 EDT) BUN 7(L) 10 - 26 mg/dl [facility] Blood specimen (specimen) 09/28/2010 22:07 EDT 09/28/2010 22:13 EDT Maj Jaspreet CORRALES CHEMISTRY & BLOOD GA S ORDERABLES Performing Organization Address [facility] de Phone Number [facility] [address] [place] [address] * ELECTROLYTES (09/28/2010 22:07 EDT) Sodium 138 136 - 145 mEq/L [facility] Potassium 4.2 3.5 - 5.0 mEq/L [facility] Chloride 104 96 - 110 mEq/L [facility] CO2 28 24 - 32 mEq/L [facility] Blood specimen (specimen) 09/28/2010 22:07 EDT 09/28/2010 22:13 EDT Maj Jaspreet CORRALES CHEMISTRY & BLOOD GA S ORDERABLES [facility] [address] [place] [address] documented in this encounter Visit Diagnoses Diagnosis Dehydration Alcoholism ([facility]) Other and unspecified alcohol dependence, unspecified drinking behavior Epigastric pain Abdominal pain, epigastric documented in this encounter Administered Medications Inactive Administered Medications - up to 3 most recent administrations Medication Order [facility] Date Dose Rate Site acetaminophen (TYLENOL) tablet 650 mg 650 mg, oral, NOW X1, 1 dose, On 09/28/10 at 2215, STAT Given 09/28/2010 22:36 EDT 650 mg diazepam (VALIUM) injection 5 mg, intravenous, NOW X1, 1 dose, On 09/28/10 at 2215, STAT Given 09/28/2010 22:27 EDT 5 mg ondansetron (PF) (ZOFRAN) injection 4 mg 4 mg, intravenous, NOW X1, 1 dose, On 09/28/10 at 2215, STAT Given 09/28/2010 22:27 EDT 4 mg pantoprazole (PROTONIX) injection 40 mg 40 mg, intravenous, NOW X1, 1 dose, On 09/28/10 at 2215, STAT Given 09/28/2010 22:28 EDT 40 mg sodium chloride 0.9 % 1,000 mL BOLUS 1,000 mL, intravenous, Once (Without Time Specified), 1 dose, Starting on 09/28/10 at 2215, Until 09/28/10 at 2228, STAT Given 09/28/2010 22:28 EDT 1,000 mL sodium chloride 0.9 % 1,000 mL with magnesium sulfate 1 g, thiamine 100 mg, folic acid 1 mg infusion intravenous, CONTINUOUS, Starting on 09/28/10 at 2215, Until 09/29/10 at 0235 New Bag 09/28/2010 22:54 EDT 100 mL/hr documented in this encounter Historical Medications * This list may reflect changes made after this encounter. Medication Sig Dispensed Refills Start Date End Date UNKNOWN TO PATIENT 3 added in this encounter Active and Recently Administered Medications Times are shown in EDT. Scheduled Medication Order 09/27/2010 09/28/2010 09/29/2010 acetaminophen (TYLENOL) tablet 650 mg (COMPLETED) 650 mg, oral, NOW X1, 1 dose, On 09/28/10 at 2215, STAT 2236 (Given - Provider: Imtiaz Muhammad RN) diazepam (VALIUM) injection (COMPLETED) 5 mg, intravenous, NOW X1, 1 dose, On 09/28/10 at 2215, STAT 2227 (Given - Provider: Imtiaz Muhammad RN) ondansetron (PF) (ZOFRAN) injection 4 mg (COMPLETED) 4 mg, intravenous, NOW X1, 1 dose, On 09/28/10 at 2215, STAT 2227 (Given - Provider: Imtiaz Muhammad RN) pantoprazole (PROTONIX) injection 40 mg (COMPLETED) 40 mg, intravenous, NOW X1, 1 dose, On 09/28/10 at 2215, STAT 2228 (Given - Provider: Imtiaz Muhammad RN) sodium chloride 0.9 % 1,000 mL BOLUS (COMPLETED) 1,000 mL, intravenous, Once (Without Time Specified), 1 dose, Starting on 09/28/10 at 2215, Until 09/28/10 at 2228, STAT 2228 (Given - Provider: Imtiaz Muhammad RN) Continuous Medication Order 09/27/2010 09/28/2010 09/29/2010 sodium chloride 0.9 % 1,000 mL with magnesium sulfate 1 g, thiamine 100 mg, folic acid 1 mg infusion (CANCELED) intravenous, CONTINUOUS, Starting on 09/28/10 at 2215, Until 09/29/10 at 0235 2254 (New Bag - Provider: Perez Muhammad RN) documented in this encounter Care Teams Duster Tender Relationship Specialty Start Date End Date Leo Gaytan MD PCP - General 09/28/10 02/16/13 documented as of this encounter
--- OUTSIDE RECORDS SUMMARY | 2024-02-03 13:17 | XMS_ITS | Encounter Summary ---
Author Organization [facility] Address [address] [place] [address] Care Team Providers Care Director Life Sales Name Role Phone Jaxon Napier MD Primary Care Provider [phone] Encounter Details Date Type Department Care Team (Late st Contact Info) Description 04/11/2014 Orders Only [facility] Spine Program - [address] [place] [address] Marifer Costello PA-C [address] [facility] [place] [address] Lumbago (Primary Dx) Social History Tobacco Use Types [...] as of this encounter Visit Diagnoses Diagnosis Lumbago- Primary documented in this encounter Care Teams Director Life Sales Relationship Specialty Start Date End Date Jaxon Napier MD [address] [id number] PCP - General 05/01/13 05/27/14 documented as of this encounter
--- OUTSIDE RECORDS SUMMARY | 2024-02-03 13:17 | XMS_ITS | Encounter Summary ---
Author Organization [facility] Address [address] [place] [address] Care Team Providers Care Milk Handler Name Role Phone Unavailable Primary Care Provider Unavailabl e Encounter Details Date Type Department Care Team (Latest Contact Info) Description 05/20/2008 11:06 EST - 05/20/2008 11:59 EST Hospital Encounter [facility] Emergency Department - [facility] [address] [place] [address] Emergency, Default, MD Discharge Disposition: Discharged to Other Facility Social History Tobacco Use Types Packs/Day Years Used Date Smoking Tobacco: Never Assessed Sex and Gender Information Value Date Recorded Sex Assigned at Not on file Gender Identity Male 11/20/2019 11:35 EDT Sexual Orientation Not on file documented as of this encounter Discharge Disposition Disposition Code Departure Means Destination Discharged to Other Facility documented in this encounter Plan of Treatment Not on file documented as of this encounter Procedures Procedure Name Priority Date/Time Associated Diagnosis Comments COMPLETE BLOOD COUNT AND DIFFERENTIAL Routine 05/20/2008 11:45 EST BUN Routine 05/20/2008 11:45 EST LIPASE Routine 05/20/2008 11:45 EST GLUCOSE, SERUM Routine 05/20/2008 11:45 EST CREATININE Routine 05/20/2008 11:45 EST ELECTROLYTES Routine 05/20/2008 11:45 EST documented in this encounter Results * (ABNORMAL) HEMAGRAM AND DIFFERENTIAL (05/20/2008 11:45 EST) WBC 6.68 4.0 - 10.4 K/cmm [facility] RBC 4.21(L) 4.36 - 5.78 M/cmm [facility] Hemoglobin 15.2 13.8 - 17.3 gm/dl [facility] HCT 43.5 39.5 - 50.2 % [facility] MCV 103(H) 81 - 95 fl [facility] MCH 36.0(H) 27.6 - 33.0 pg [facility] MCHC 34.9 32.8 - 36.4 gm/dl [facility] PLT 132(L) 141 - 320 K/cmm [facility] RDW-CV 14.7(H) 11.8 - 14.1 % [facility] Neutrophils 76.0 45.5 - 79.7 % [facility] Lymphocytes 10.6(L) 15.0 - 46.8 % [facility] Monocytes 10.7 1.8 - 12.0 % [facility] Eosinophils 2.3 0.6 - 6.9 % [facility] Basophils 0.4 0.2 - 1.4 % [facility] ABS Neutrophils 5.08 2.20 - 8.85 K/cmm [facility] ABS Lymphs 0.71(L) 1.09 - 3.30 K/cmm [facility] ABS Monocytes 0.72 0.1 - 0.8 K/cmm [facility] ABS Eosinophils 0.15 0.03 - 0.61 K/cmm [facility] ABS Basophils 0.02 0.01 - 0.11 K/cmm [facility] Type of Diff: Automated [facility] 05/20/2008 11:4 5 EST 05/20/2008 11:55 EST Default Emergency MD PACKAGES & DNA PROB E ORDERABLES [facility] [address] [place] [address] * GLUCOSE, SERUM (05/20/2008 11:45 EST) Glucose, Serum 95 70 - 100 mg/dl [facility] 05/20/2008 11:4 5 EST 05/20/2008 11:55 EST Default Emergency MD CHEMISTRY & BLOOD G ORDERABLES Performing Organization Address [facility] Phone Number [facility] [address] [place] [address] * (ABNORMAL) LIPASE (05/20/2008 11:45 EST) Lipase 293(H) 0 - 250 U/L [facility] 05/20/2008 11:4 5 EST 05/20/2008 11:55 EST Default Emergency MD CHEMISTRY & BLOOD G ORDERABLES Performing Organization Address [facility] Phone Number [facility] [address] [place] [address] * CREATININE (05/20/2008 11:45 EST) Creatinine 0.70 0.7 - 1.5 mg/dl [facility] GFR, Calculated >60 ml/min/1.7 3m2 [facility] 05/20/2008 11:4 5 EST 05/20/2008 11:55 EST Default Emergency MD CHEMISTRY & BLOOD G ORDERABLES Performing Organization Address [facility] Phone Number [facility] [address] [place] [address] * BUN (05/20/2008 11:45 EST) BUN 11 10 - 26 mg/dl [facility] 05/20/2008 11:4 5 EST 05/20/2008 11:55 EST Default Emergency MD CHEMISTRY & BLOOD G ORDERABLES Performing Organization Address [facility] Phone Number [facility] [address] [place] [address] * ELECTROLYTES (05/20/2008 11:45 EST) Sodium 139 136 - 145 mEq/L [facility] Comment:Sample retested, res ult confirmed Potassium 4.1 3.5 - 5.0 mEq/L [facility] Chloride 103 96 - 110 mEq/L [facility] CO2 26 24 - 32 mEq/L [facility] 05/20/2008 11:4 5 EST 05/20/2008 11:55 EST Default Emergency MD CHEMISTRY & BLOOD G ORDERABLES Performing Organization Address City/State/[facility] Co de Phone Number [facility] [address] [place] [address] documented in this encounter Visit Diagnoses Not on filedocumented in this encounter
--- OUTSIDE RECORDS SUMMARY | 2024-02-03 13:17 | XMS_ITS | Encounter Summary ---
Author Organization [facility] Address [address] [place] [address] Care Team Providers Care Encyclopedia Research Worker Name Role Phone Dillon Cerda MD Primary Care Provider Un available Reason for Visit * Reason Comments Medical Evaluation Pt sent back from [facility] for elevated B/P. Pt A&Ox3. Pt states that he has not had his b/p meds today. Pt in NAD. B/P normal in triage. Encounter Details Date Type Department Care Team (Late st Contact Info) Description 09/29/2010 16:30 EDT - 09/29/2010 18:41 EDT Emergency [facility] Emergency Department - [address] [place] [address] [place] [address] Sawyer Jones MD [address] [place], [place] [id number] Emergency, MD Franky Alcohol withdrawal ([facility]) Discharge Disposition: Home or Self Care Social [...] Sign Reading Time Taken Comments Blood Pressure 117/79 09/29/2010 1829 EDT Pulse 88 09/29/2010 1643 EDT Temperature 35.6 ??C (96.1 ??F) 09/29/2010 1643 EDT Respiratory Rate 18 09/29/2010 1829 EDT Oxygen Saturation 97% 09/29/2010 1829 EDT Inhaled Oxygen Concentration - - Weight 73.9 kg (163 lb) 09/29/2010 1645 EDT Height 162.6 cm (5' 4) 09/29/2010 1645 EDT Body Mass Index 27.98 09/29/2010 1645 EDT documented in this encounter Discharge Instructions * Discharge Instructions* Sawyer Jones MD - 09/29/2010 18:31 EDT Return [facility] and continue their program as scheduled. Continue going to AA meetings. * Attachments The following attachments cannot be sent through Care Everywhere. * ALCOHOL DETOXIFICATION AND WITHDRAWAL: AFTER YOUR VISIT (CHILEAN) documented in this encounter Medications at Time [...] PATIENT 3 documented as of this encounter Discharge Disposition Disposition Code Departure Means Destination Home or Self Care Walk-out Home documented in this encounter ED Notes * Sawyer Jones MD - 09/29/2010 1839 EDT DOS: 09/29/2010 Chief Complaint Patient presents with ??? Medical Evaluation Pt sent back from [facility] for elevated B/P. Pt A&Ox3. Pt states that he has not had his b/p meds today. Pt in NAD. B/P normal in triage. The patient is a 45 y.o. male who presents today with Medical Evaluation HPI Comments: This 45-year-old male alcoholic with a history of COPD, presents to the emergency department from [facility] where he has been since last . The patient has been treated per [facility] protocol, but this morning did not feel that he needed his Valium. When he presented for reassessment ofhis vital signs later in the day, do to increase shakiness, he was noted to be hypertensive and tachycardic. He was not given any medication at that time, however was sent to the emergency department. According to the notes from [facility], the patient's blood pressure was 229/177 with a pulse of 161. Upon arrival to the emergency department, and without any treatment whatsoever, the patient had a normal blood pressure and pulse. His blood pressure and pulse were rechecked again after an hour in theemergency department without any treatment and still were normal. The patient does admit to feelingquite shaky at this point. The history is provided by the patient. Medical Evaluation The current episode started today. The problem occurs continuously. The problem has been gradually worsening. The problem is moderate. Nothing relieves the symptoms. Nothing aggravates the symptoms. Associated symptoms include muscle aches and cough (chronic). Pertinent negatives include no orthopnea, no fever, no abdominal pain, no constipation, no diarrhea, no nausea, no vomiting, no URI and nowheezing. He has been behaving normally. He has been eating and drinking normally. Urine output hasbeen normal. Recently, medical care has been given at this facility. Review of Systems Constitutional: Negative for fever, chills and activity change. Respiratory: Positive for cough (chronic). Negative for shortness of breath and wheezing. Cardiovascular: Negative for orthopnea. Gastrointestinal: Negative for nausea, vomiting, abdominal pain, diarrhea and constipation. Musculoskeletal: Positive for myalgias. Neurological: Positive for tremors. All other systems reviewed and are negative. [...] No pertinent family history. Vital Signs Temp: 35.6 ??C (96.1 ??F) Temp src: Tympanic Pulse: 88 Heart Rate: 63 BPM Resp: 18 SpO2: 97 % BP: 117/79 mmHg BP Device: BP Machine Patient Position: Sitting BP Cuff Location: Right arm O2 Device: None (Room air) Physical Exam Nursing note and vitals reviewed. Constitutional: He is oriented to person, place, and time. He appears well- developed and well-nourished. HENT: Head: Normocephalic and atraumatic. Eyes: Grossly normal Neck: Normal range of motion. Neck supple. Cardiovascular: Normal rate and regular rhythm. Exam reveals no gallop and no friction rub. No murmur heard. Pulmonary/Chest: Effort normal and breath sounds normal. No respiratory distress. He has no wheezes. He has no rales. Abdominal: Soft. Bowel sounds are normal. He exhibits no distension and no mass. No tenderness. Musculoskeletal: Normal range of motion. He exhibits no edema and no tenderness. Neurological: He is alert and oriented to person, place, and time. Grossly intact, moderately tremulous Skin: Skin is warm and dry. No rash noted. Psychiatric: He has a normal mood and affect. Radiology orders: None Procedures ED Course: A medical screening exam was performed. The patient was found to be in mild alcohol withdrawal and was treated with oral Valium 20 mg. His blood pressure and pulse remained normal in the emergency department. Disposition: Discharged The patient's pain was managed to an adequate level weighing risk vs. benefit of further medications. Upon departure from the Emergency Department, the patient's pain was 7 on a zero to ten scale. The patient states that his muscle pain is due to his muscle tremors, and feels that treatment for alcohol withdrawal will help his pain. Condition at departure from the Emergency Department: Improved Discharge Prescriptions New Prescriptions No Discharge Prescriptions for this patient MDM Number of Diagnoses or Management Options Alcohol withdrawal: Diagnosis management comments: 3 1. Alcohol withdrawal (291.81) PCP: DILLON CERDA MD 09/29/2010 18:39 * Nikolai Macias - 09/29/2010 1640 EDT TCALL: ZEESHAN ALMODOVAR [birth year] [facility] REFERS PT TO ED FOR EVAL. CC: ETOH DETOX, HERE LAST NIGHT. ELEVATED BP / HR TODAY: 229/177, 145 AND 196 / 177, 161 PER [facility] (GMD) * Vlad Colvin - 09/29/2010 1640 EDT TCALL: ZEESHAN AMLODOVAR [birth year] [facility] REFERS PT TO ED FOR EVAL. CC: ETOH DETOX, HERE LAST NIGHT. ELEVATED BP / HR TODAY: 229/177, 145 AND 196 / 177, 161 PER [facility] (GMD) documented in this encounter Miscellaneous Notes * Scanned Note-Null - Power Manager, Scan - 09/29/2010 0000 EDT documented in this encounter Plan of Treatment Not on file documented as of this encounter Visit Diagnoses Diagnosis Alcohol withdrawal ([facility]) Alcohol withdrawal documented in this encounter Administered Medications Inactive Administered Medications - up to 3 most recent administrations Medication Order MAR Action Action Date Dose Rate Site DIAZepam (VALIUM) 5 mg tablet 1 dose, Starting on 09/29/10 at 1825, Until 09/29/10 at 1829 diazepam (VALIUM) tablet 20 mg 20 mg, oral, NOW X1, 1 dose, On Wed09/29/10 at 1845, STAT Given 09/29/2010 18:29 EDT 20 mg documented in this encounter Active and Recently Administered Medications Times are shown in EDT. Scheduled Medication Order 09/27/2010 09/28/2010 09/29/2010 diazepam (VALIUM) tablet 20 mg (COMPLETED) 20 mg, oral, NOW X1, 1 dose, On 09/29/10 at 1845, STAT 1829 (Given - Provid er: Homa Cruz RN) documented in this encounter Care Teams Encyclopedia Research Worker Relationship Specialty Start Date End Date Dillon Cerda MD PCP - General 09/28/10 02/16/13 documented as of this encounter
--- OUTSIDE RECORDS SUMMARY | 2024-02-03 13:17 | XMS_ITS | Encounter Summary ---
Author Organization [facility] Address [address] [place] [address] Care Team Providers Care Skidder Runner Name Role Phone Jaxon Napier MD Primary Care Provider [phone] Reason for Referral * Radiology Services (Routine) - Closed Specialty Diagnoses / Procedures Referred By Mavis t Referred To Contact Diagnoses Lumbago Procedures L SPINE 4 OR MORE VIEWS Marifer Costello PA-C [address] [place] [phone] Referral ID Status Reason Start Date Expiration Date Visits Re quested Visits Authorized [id number] Closed 05/10/2014 1 1 Encounter Details Date Type Department Care Team (Late st Contact Info) Description 05/09/2014 Orders Only [facility] Spine Program - [address] [address] Marifer Costello PA-C [address] [place] [phone] Lumbago (Primary Dx) Social History Tobacco [...] L SPINE 4 OR MORE VIEWS Routine 05/30/2014 9:51 EST Lumbago documented in this encounter Results * L SPINE 4 OR MORE VIEWS (05/30/2014 9:51 EST) Anatomical Region Laterality Modality Other 05/30/2014 9:51 EST 05/30/2014 11:12 EST Narrative 05/30/2014 11:12 EST 4 views of the lumbar spine May 30, 2014. History: Back pain. Comparison: None. Findings: Upright AP, lateral, and flexion and extension views of the lumbar spine were acquired. There is dextroscoliosis at the thoracolumbar junction. In the neutral lateral position note is made of a compression deformity of L1 with approximately 50% loss of anterior vertebral body height. There is grade 1 retrolisthesis of L1 on L2 and slight retrolisthesis of L2 on L3. In flexion and extension no instability is identified. Procedure Note 05/30/2014 4 views of the lumbar spine May 30, 2014. History: Back pain. Comparison: None. Findings: Upright AP, lateral, and flexion and extension views of the lumbar spine were acquired. There is dextroscoliosis at the thoracolumbar junction. In the neutral lateral position note is made of a compression deformity of L1 with approximately 50% loss of anterior vertebral body height. There is grade 1 retrolisthesis of L1 on L2 and slight retrolisthesis of L2 on L3. In flexion and extension no instability is identified. Marifer Costello PA-C [facility] ORDERABLES documented in this encounter Visit Diagnoses Diagnosis Lumbago- Primary documented in this encounter Care Teams Skidder Runner Relationship Specialty Start Date End Date Jaxon Napier MD [address] [address] PCP - General 05/01/13 05/27/14 documented as of this encounter
--- OUTSIDE RECORDS SUMMARY | 2024-02-03 13:17 | XMS_ITS | Encounter Summary ---
Author Organization [facility] Address [address] [place] [address] Care Team Providers Care Club Director Name Role Phone Unavailable Primary Care Provider Unavailabl e Encounter Details Date Type Department Care Team (Latest Contact Info) Description 05/17/2008 19:10 EST Hospital Encounter [facility] Emergency Department - [facility] [address] [place] [address] Emergency, Default, MD Discharge Disposition: Home or [...] Procedure Name Priority Date/Time Associated Diagnosis Comments HOLD PURPLE TOP Routine 05/17/2008 20:45 EST BUN Routine 05/17/2008 20:45 EST GLUCOSE, SERUM Routine 05/17/2008 20:45 EST CREATININE Routine 05/17/2008 20:45 EST ELECTROLYTES Routine 05/17/2008 20:45 EST documented in this encounter Results * HOLD PURPLE TOP (05/17/2008 20:45 EST) Hold Purple Top EDTA for hematology will be discarded after 48 hours, differential not available after 12 hours. [facility] 05/17/2008 20:4 5 EST 05/17/2008 20:49 EST Default Emergency MD LAB INFO SERVICE AN D SUPPORT & PHONE RESULT Performing Organization Address [facility] Co sc Phone Number [facility] [address] [place] [address] * (ABNORMAL) GLUCOSE, SERUM (05/17/2008 20:45 EST) Glucose, Serum 103(H) 70 - 100 mg/dl [facility] 05/17/2008 20:4 5 EST 05/17/2008 20:49 EST Default Emergency MD CHEMISTRY & BLOOD G ORDERABLES Performing Organization Address [facility] Phone Number [facility] [address] [place] [address] * CREATININE (05/17/2008 20:45 EST) Creatinine 0.70 0.7 - 1.5 mg/dl [facility] GFR, Calculated >60 ml/min/1.7 3m2 [facility] 05/17/2008 20:4 5 EST 05/17/2008 20:49 EST Default Emergency MD CHEMISTRY & BLOOD G ORDERABLES Performing Organization Address [facility] Phone Number [facility] [address] [place] [address] * (ABNORMAL) BUN (05/17/2008 20:45 EST) BUN 6(L) 10 - 26 mg/dl [facility] 05/17/2008 20:4 5 EST 05/17/2008 20:49 EST Default Emergency MD CHEMISTRY & BLOOD G ORDERABLES Performing Organization Address [facility] de Phone Number [facility] [address] [place] [address] * (ABNORMAL) ELECTROLYTES (05/17/2008 20:45 EST) Sodium 150(H) 136 - 145 mEq/L [facility] Potassium 4.5 3.5 - 5.0 mEq/L [facility] Chloride 107 96 - 110 mEq/L [facility] CO2 30 24 - 32 mEq/L [facility] 05/17/2008 20:4 5 EST 05/17/2008 20:49 EST Default Emergency MD CHEMISTRY & BLOOD G ORDERABLES Performing Organization Address City/State/[facility] Co de Phone Number [facility] [address] [place] [address] documented in this encounter Visit Diagnoses Not on filedocumented in this encounter
--- OUTSIDE RECORDS SUMMARY | 2024-02-03 13:17 | XMS_ITS | Encounter Summary ---
Author Organization [facility] Address [address] [place] [address] Care Team Providers Care Biscuit Packer Name Role Phone Mitchell Del Rosario MD Primary Care Provider Mitchell Bragg MD Primary Care Provider Braeden johnson Encounter Details Date Type Department Care Team (Late st Contact Info) Description 05/21/2008 Office Visit [facility] [address] [place] [address] Parrish Jackson, PAJessiC [address] [place] [address] [place] [phone] Social History Tobacco Use Types Packs/Day Years Used Date Smoking Tobacco: Never Assessed Sex and Gender Information Value Date Recorded Sex Assigned at Not on file Gender Identity Male 11/20/2019 11:35 EDT Sexual Orientation Not on file documented as of this encounter Progress Notes * Parrish Jackson - 07/12/2009 1515 EST Department - Physician Summary Registration Date/Time: 05/21/2008 20:09 Time Seen: 20:57. Arrived- By private vehicle. OF PRESENT ILLNESS Chief Complaint: GOT THE SHAKES. Wants to stop drinking. Substances abused: Alcohol. Pt is seeinghis PCP tomorrow at 11 AM, just discharged from [facility], requesting enough Valium to get him through the night. He has had nausea. No fever, chills, vomiting, diarrhea or abdominal pain. No tremors, seizure, agitation, delusions or hallucinations. No suicidal thoughts. Not confused or paranoid. Has not been depressed. No difficulty walking. The symptoms are described as moderate. No injuries noted. REVIEW OF SYSTEMS The patient has not had weight loss. No sweats, headache, dizziness, weakness or chest pain. No palpitations,black stools, numbness, bloody stools or sore throat. No cough, difficulty breathing, difficulty with urination, skin abscess or joint pain. No enlarged lymph nodes. PAST HISTORY See nurses notes. Medications: The patient's medications have been reviewed. Allergies: The patient's allergies have been reviewed. ADDITIONAL NOTES The nursing notes have been reviewed. PHYSICAL EXAM Appearance: Alert. Oriented X3. No acute distress. Vital Signs: Have been reviewed. Neck: Normal inspection. Neck supple. CVS: Normal heart rate and rhythm. Heart sounds normal. Pulses normal. Respiratory: No respiratory distress. Breath sounds normal. Abdomen: Abdomen soft and nontender. No organomegaly. Skin: Normal skin color. Skin warm. No rash. PROGRESS AND PROCEDURES E.D. Course: Pt requesting starter pack of Valium which i denied, pt given a single PO Valium tab to take before bed tonight. He is to see his PCP in AM. Patient is stable. Patient/family counseled. ED Attending on duty and available for supervision: Irma Arshad Disposition: Condition: good. Discharged home. Discharged home in good condition. CLINICAL IMPRESSION Alcohol withdrawal. Anxiety. INSTRUCTIONS Follow-up: Follow up with your doctor as scheduled tomorrow morning. Understanding of the discharge instructions verbalized by patient. (Electronically signed by MADELAINE Thomas 05/21/2008 21:02) Department - Nursing Summary Registration Date/Time: 05/21/2008 20:09 TRIAGE Initial Assessment Triage time 20:10. Acuity: LEVEL 3. BP: 141 / 88. HR: 117. RR: 20. Temp: 36.1 tympanic. O2 saturation: 99 % room air. Alert. No acute distress. --2012 Marisel Jorge R.N.. Medications Dilantin (400 mg daily). --2012 Marisel Jorge R.N.. Allergies No known drug allergies. --2012 Marisel Jorge R.N.. History Pain level now: 0/10. PAST HX: Alcoholism. Seizures. No history of previous surgery. SOCIAL HX: Cigarette smoker: less than 1 pack per day. Alcohol use. Patient is a longstanding alcoholic. Functional assessment: no impairments noted. The nutritional risk assessment revealed no deficiencies. No report of abuse. Historian: patient. (Pt discharged from [facility] couple hours ago , pt requesting valium to hold him over till he goes to see PMD tomorrow at 11 am. Last drink - one week. ). --2012 Marisel Jorge R.N.. NURSING PROGRESS NOTES VALIUM 5 mg to go PO. Sedative drug warning given to the patient. . --2047 Ranjana Arvizu R.N.. DISPOSITION / DISCHARGE Condition at departure: unchanged. Discharge instructions reviewed with the patient. Patient verbalized understanding. Written instructions provided in Guamanian. The patient left the Emergency Department ambulatory. --2047 Ranjana Arvizu R.N.. Marisel Arvizu R.N. Locked/Released at 05/21/2008 21:23 by Marisel Jorge R.N. documented in this encounter Plan of Treatment Not on file documented as of this encounter Visit Diagnoses Not on filedocumented in this encounter Care Teams Biscuit Packer Relationship Specialty Start Date End Date Mitchell Del Rosario MD PCP - General 01/08/09 09/24/10 Mitchell Del Rosario MD PCP - General 11/05/08 01/07/09 documented as of this encounter
--- OUTSIDE RECORDS SUMMARY | 2024-02-03 13:18 | XMS_ITS | Encounter Summary ---
Author Organization [facility] Address [facility] [place] [address] Care Team Providers Care Director Of Strategic Communications Name Role Phone Jaxon Napier MD Primary Care Provider [phone] Encounter Details Date Type Department Care Team (Late st Contact Info) Description 09/07/2020 12:05 AM EDT Ancillary Procedure [place] [phone] Social History Tobacco Use Types Packs/Day Years Used Date Smoking Tobacco: Never Assessed Sex and Gender Information Value Date Recorded Sex Assigned at Not on file Gender Identity Not on file Sexual Orientation Not on file documented as of this encounter Plan of Treatment Not on file documented as of this encounter Procedures Procedure Name Priority Date/Time Associated Diagnosis Comments FILM LIBRARY STORAGE ONLY CT CHEST STAT 09/07/2020 12:05 AM EDT documented in this encounter Results * Film Library- Storage Only CT Chest (09/07/2020 12:05 AM EDT) Narrative [facility] - 09/11/2020 7:36 PM EDT This exam is auto-finalizing. It's purpose is for storage only. Makro Jordan MD IMG FILM LIBRARY OR DERABLES [place], [place] documented in this encounter Visit Diagnoses Not on filedocumented in this encounter Care Teams Director Of Strategic Communications Relationship Specialty Start Date End Date Jaxon Napier MD [address] [place] [address] PCP - General 08/10/12 09/10/20 documented as of this encounter
--- OUTSIDE RECORDS SUMMARY | 2024-02-03 13:18 | XMS_ITS | Encounter Summary ---
[place] [address] Care Team Providers Care Jack Of All Trades Name Role Phone Nino Underwood MD Primary Care Provider [phone] Reason for Visit * Reason Onset Date Comments Medication Refill 09/23/2020 Encounter Details Date Type Department Care Team (Late st Contact Info) Description 09/23/2020 Refill [place] [phone] Patty Byrnes, RN Social History Tobacco Use Types Packs/Day Years Used Date Smoking Tobacco: Former Cigarettes 2 40 0 09/07/1980 - 09/07/2020 Smokeless Tobacco: Never Alcohol Use Standard Drinks/Week Comments Not Currently 0 (1 standard drink = 0.6 oz pur e alcohol) two years sober Sex and Gender Information Value Date Recorded Sex Assigned at Not on file Gender Identity Not on file Sexual Orientation Not on file documented as of this encounter Plan of Treatment Not on file documented as of this encounter Visit Diagnoses Not on filedocumented in this encounter Care Teams Jack [employer] All Trades Relationship Specialty Start Date End Date Nino Underwood MD [address] [place] [address] PCP - General Family Medicine 09/11/20 03/29/23 documented as of this encounter
--- OUTSIDE RECORDS SUMMARY | 2024-02-03 13:18 | XMS_ITS | Clinical Summary ---
Author Organization [facility] Address [facility] [place] [address] Care Team Providers Care Ad Writer Name Role Phone Unknown Primary Care Provider Unavailabl e Allergies Active Allergy Reactions Criticality Noted Date Comments Bupropion 09/11/2020 Medications Medication Sig Dispensed Refills Start Date End Date Status acetaminophen (Tylenol) 500 mg Tablet Take 2 tablets by mouth every 6 hours as needed for Pain. 30 tablet 09/17/2020 Active cyclobenzaprine (Flexeril) 10 mg Tablet Take 1 tablet by mouth 3 times daily as needed for Muscle spasms. 30 tablet 09/17/[address] (Cymbalta) 60 mg Capsule, Delayed Release(E.C.) Take 1 capsule by mouth daily. 30 tablet 11 09/18/2020 Active famotidine (Pepcid) 40 mg Tablet Take 1 tablet by mouth nightly. 30 tablet 12 09/17/2020 Active Additional Information Patient not taking.Reported on 09/30/2020 HYDROmorphone (Dilaudid) 2 mg Tablet Take 1 tablet by mouth every 4 hours as needed for Pain (For pain not controlled by Tylenol and Ibuprofen). 15 tablet 09/17/2020 Active Additional Information Patient not taking.Reported on 09/30/2020 lamoTRIgine (LaMICtal) 100 mg Tablet Take 1 tablet by mouth 2 times daily. 30 tablet 12 09/17/2020 Active melatonin 3 mg Tablet Take 2 tablets by mouth nightly. 60 each 09/17/2020 Active Additional Information Patient not taking.Reported on 09/30/2020 mometasone (ASMANEX) 220 mcg/ actuation (14) Aerosol Powdr Breath Activated Inhale 1 puff into the lungs nightly. 0.007 g 09/18/2020 Active polyethylene glycoL (Miralax) 17 gram Powder in Packet Take 17 g by mouth daily. 14 each 09/18/2020 Active pregabalin (LYRICA) 100 mg Capsule Take 1 capsule by mouth 3 times daily. 90 tablet 09/17/2020 Active QUEtiapine (SEROquel) 100 mg Tablet Take 1 tablet by mouth nightly. 30 tablet 09/17/2020 Active senna (Senokot) 8.6 mg Tablet Take 2 tablets by mouth 2 times daily. 60 tablet 09/17/2020 Active Additional Information Patient not taking.Reported on 09/30/2020 Ensure Liquid DRINK 1 CAN BY MOUTH THREE TIMES A DAY 08/09/2020 Active Trelegy Ellipta 100-62.5-25 mcg Disk with Device INHALE ONE PUFF BY MOUTH EVERY DAY 06/26/2020 Active cyanocobalamin, Vitamin B-12, (Vitamin B-12) 1,000 mcg Tablet Take 1,000 mcg by mouth Daily. 01/23/2020 Active albuteroL 90 mcg/actuation HFA Aerosol Inhaler Inhale 2 puffs into the lungs Every 4 hours. Active naloxone (Narcan) 4 mg/actuation [place], Non-Aerosol SPRAY 0.1ML INTO ONE NOSTRIL REPEAT WITH SECOND DEVICE INTO THE OTHER NOSTRIL AFTER 2 3 MINUTES IF NO OR MINIMAL RESPONSE 06/14/2020 Active methylphenidate (RITALIN) 20 mg Tablet TAKE ONE TABLET BY MOUTH TWICE A DAY 08/16/2020 Active multivitamin Capsule Take 1 capsule by mouth Daily. Active triamcinolone (KENALOG) 0.1 % Cream APPLY TO AFFECTED AREA S THREE TIMES A DAY NEEDED 05/07/2020 Active nicotine (NICODERM CQ) 21 mg/24 hr Patch 24 hr APPLY ONE PATCH TO THE SKIN EVERY DAY 06/25/2020 Active meloxicam (MOBIC) 15 mg Tablet TAKE ONE TABLET BY MOUTH EVERY DAY FOR 30 DAYS NEEDED 06/12/2020 Active cetirizine (ZyrTEC) 10 mg Tablet TAKE ONE TABLET BY MOUTH AT BEDTIME NIGHTLY 06/03/2020 Active oxyCODONE (Roxicodone) 5 mg Tablet Take 1 tablet by mouth every 8 hours as needed for Pain. 8 tablet 09/23/2020 Active nicotine polacrilex (NICORETTE) 4 mg GumIndications:Jonathan daniela dependence, cigarettes, uncomplicated,[place] co abuse counseling Take 1 each by mouth every 2 hours as needed for Smoking cessation. Nothing but water 15 min before or during use. 100 each 3 09/30/2020 Active nicotine (NICOTROL) 10 mg Cartridge Inhale 1 puff into the lungs as needed for Smoking cessation (no more than 16 cartridges per day). 1 each 3 09/30/2020 Active Active Problems Problem Noted Date Diagnosed Date Lymphoma 09/26/2020 Severe protein-calorie malnutrition 09/12/2020 Overview (09/12/2020): <75% of estimated energy requirement for > or equal to 1 month, >10% weight loss in 6 months, Mild subcutaneous fat loss and Severe lean muscle loss is consistent with severe protein-calorie malnutrition in the setting of chronic illness (Timmy connors al, JPEN J Parenteral Enteral Nutr. 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 Sex and Gender Information Value Date Recorded Sex Assigned at Not on file Gender Identity Not on file Sexual Orientation Not on file Last Filed Vital Signs Vital Sign Reading Time Taken Comments Blood Pressure 129/67 09/26/2020 9:00 AM EDT Pulse 88 09/26/2020 9:00 AM EDT Temperature 36.8 ??C (98.2 ??F) 09/26/2020 9:00 AM ED T Respiratory Rate 20 09/26/2020 9:00 AM EDT Oxygen Saturation 94% 09/26/2020 9:00 AM EDT Inhaled Oxygen Concentration - - Weight 56.3 kg (124 lb 3.2 oz) 09/26/2020 9:00 A M EDT Height 160.8 cm (5' 3.31) 09/26/2020 9:00 AM ED T Body Mass Index 21.79 09/26/2020 9:00 AM EDT Plan of Treatment Health Maintenance Due Date Last Done Comments CT Colonography 1963 Colonoscopy 1963 Colorectal Cancer Screening 1963 FIT DNA 1963 FIT 1963 Sigmoidoscopy (10 year) with FIT yearly 1963 Sigmoidoscopy 1963 HIV screen 1981 Hepatitis C Screening 1981 Lipid Screening 1981 Tdap adult 1982 Tetanus vaccine 1982 Zoster vaccine (1 of 2) 2013 Advance Directive 2018 Covid-19 Vaccine (1 - season) 2024 Influenza (Flu) vaccine (1 o f 1 - Influenza standard series) 01/30/2024 Advance Directives * Attempt Cardiopulmonary Resuscitation - Inpatient (Latest Code Status on File) Date Activated Date Inactivated Comments 09/16/2020 10:34 AM 09/17/2020 7:50 PM Question Answer Comments Code Status decision made by: Patient * Attempt Cardiopulmonary Resuscitation - Inpatient Date Activated Date Inactivated Comments 09/11/2020 11:47 PM 09/16/2020 10:34 AM Question Answer Comments Code Status decision made by: Patient Care Teams Ad Writer Relationship Specialty Start Date End Date Unknown None PCP - General 03/30/23
--- OUTSIDE RECORDS SUMMARY | 2024-02-03 13:18 | XMS_ITS | Encounter Summary ---
Author Organization Formerly [facility] [place] [address] Care Team Providers Care Housekeeper [facility] Name Role Phone Nino Underwood MD Primary Care Provider [phone] Reason for Visit * Reason Comments Nicotine Dependence Encounter Details Date Type Department Care Team (Late st Contact Info) Description 09/30/2020 12:30 PM EDT TH Visit (TeleHealth) [place] [address] Estrella Gomez APRN [facility] [place] [address] Nicotine dependence, cigarettes, uncomplicated; Tobacco abuse counseling Social History Tobacco Use Types Packs/Day Years Used Date Smoking Tobacco: Every Day Cigarettes 3 40 Started: 09/07/1980; Last attempted to quit: 09/07/2020 Smokeless Tobacco: Never Tobacco Cessation:Ready to Q uit: Yes; Counseling Given: Yes Comments:now smoking 1 ppd Alcohol Use Standard Drinks/Week Comments Not Currently 0 (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 male who is being seen today for tobacco cessation. Type of tobacco used: () Smokeless tobacco () e-cigarette (x) Cigarettes Current amount: 1 ppd (down from 3 ppd since being hospitalized) Age initiated: 15 yrs Years smoked: 40 Previous quit attempts and methods: tried cold turkey but not successful, patches helped while in the hospital, never tried any other medications Most recent quit attempt: currently trying to cut back What will be different this time: health, I want to Concerns about quitting: No Triggers for smoking: Habit Ready to set a quit date: Planning to wean down Support systems include: SO Medications: Current Outpatient Medications on File Prior to Visit Medication Sig Dispense Refill ??? Ensure Liquid DRINK 1 CAN BY MOUTH THREE TIMES A DAY ??? Trelegy Ellipta 100-62.5-25 mcg Disk with Device INHALE ONE PUFF BY MOUTH EVERY DAY ??? cyanocobalamin, Vitamin B-12, (Vitamin B-12) 1,000 mcg Tablet Take 1,000 mcg by mouth Daily. ??? albuteroL 90 mcg/actuation HFA Aerosol Inhaler Inhale 2 puffs into the lungs Every 4 hours. ??? naloxone (Narcan) 4 mg/actuation [place], Non-Aerosol SPRAY 0.1ML INTO ONE NOSTRIL REPEAT WITH SECOND DEVICE INTO THE OTHER NOSTRIL AFTER 2 3 MINUTES IF NO OR MINIMAL RESPONSE ??? multivitamin Capsule Take 1 capsule by mouth Daily. ??? meloxicam (MOBIC) 15 mg Tablet TAKE ONE TABLET BY MOUTH EVERY DAY FOR 30 DAYS NEEDED ??? oxyCODONE (Roxicodone) 5 mg Tablet Take 1 tablet by mouth every 8 hours as needed for Pain. 8 tablet 0 ??? acetaminophen (Tylenol) 500 mg Tablet Take 2 tablets by mouth every 6 hours as needed for Pain.30 tablet 0 ??? cyclobenzaprine (Flexeril) 10 mg Tablet Take 1 tablet by mouth 3 times daily as needed for Muscle spasms. 30 tablet 0 ??? DULoxetine DR (Cymbalta) 60 mg Capsule, Delayed Release(E.C.) Take 1 capsule by mouth daily. 30tablet 11 ??? lamoTRIgine (LaMICtal) 100 mg Tablet Take 1 tablet by mouth 2 times daily. 30 tablet 12 ??? mometasone (ASMANEX) 220 mcg/ actuation (14) Aerosol Powdr Breath Activated Inhale 1 puff into the lungs nightly. 0.007 g 0 ??? polyethylene glycoL (Miralax) 17 gram Powder in Packet Take 17 g by mouth daily. 14 each 0 ??? pregabalin (LYRICA) 100 mg Capsule Take 1 capsule by mouth 3 times daily. 90 tablet 0 ??? QUEtiapine (SEROquel) 100 mg Tablet Take 1 tablet by mouth nightly. 30 tablet 0 ??? amoxicillin-clavulanate (Augmentin) 875-125 mg Tablet Take 1 tablet by mouth 2 times daily for 28 days. 56 tablet 0 ??? methylphenidate (RITALIN) 20 mg Tablet TAKE ONE TABLET BY MOUTH TWICE A DAY ??? triamcinolone (KENALOG) 0.1 % Cream APPLY TO AFFECTED AREA S THREE TIMES A DAY NEEDED ??? nicotine (NICODERM CQ) 21 mg/24 hr Patch 24 hr APPLY ONE PATCH TO THE SKIN EVERY DAY ??? cetirizine (ZyrTEC) 10 mg Tablet TAKE ONE TABLET BY MOUTH AT BEDTIME NIGHTLY ??? famotidine (Pepcid) 40 mg Tablet Take 1 tablet by mouth nightly. (Patient not taking: Reported on 09/30/2020) 30 tablet 12 ??? HYDROmorphone (Dilaudid) 2 mg Tablet Take 1 tablet by mouth every 4 hours as needed for Pain (For pain not controlled by Tylenol and Ibuprofen). (Patient not taking: Reported on 09/30/2020) 15 tablet 0 ??? melatonin 3 mg Tablet Take 2 tablets by mouth nightly. (Patient not taking: Reported on 09/30/2020) 60 each 0 ??? senna (Senokot) 8.6 mg Tablet Take 2 tablets by mouth 2 times daily. (Patient not taking: Reported on 09/30/2020) 60 tablet 0 No current facility-administered medications on file prior to visit. Allergies: Allergies Allergen Reactions ??? Wellbutrin [Bupropion] Past Medical History: Patient Active Problem List Diagnosis Date Noted ??? Lymphoma 09/26/2020 ??? Severe protein-calorie malnutrition 09/12/2020 ??? Empyema 09/11/2020 No past medical history on file. Past Surgical History: Past Surgical History: Procedure Laterality Date ??? CT GUIDED DRAIN LUNG 09/16/2020 CT Guided Drain Lung 09/16/2020 Jaxon Espinosa, DO [facility] RAD CAT SCAN Social History: Social History Socioeconomic History ??? Marital status: Spouse name: Not on file ??? Number of children: Not on file ??? Years of education: Not on file ??? Highest education level: Not on file Occupational History ??? Not on file Tobacco Use ??? Smoking status: Current Every Day Smoker Packs/day: 3.00 Years: 40.00 Pack years: 120.00 Types: Cigarettes Last attempt to quit: 09/07/2020 Years since quittin.0 ??? Smokeless tobacco: Never Used ??? Tobacco comment: now smoking 1 ppd Substance and Sexual Activity ??? 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 Drug use: Not Currently ??? Sexual activity: Yes Partners: Female Other Topics Concern ??? Not on file Social History Narrative ??? Not on file Social Determinants of Health Financial Resource Strain: ??? Difficulty of Paying Living Expenses: Food Insecurity: ??? Worried About Running Out of Food in the Last Year: ??? Ran Out of Food in the Last Year: Transportation Needs: ??? Lack of Transportation (Medical): ??? Lack of Transportation (Non-Medical): Physical Activity: ??? Days of Exercise per Week: ??? Minutes of Exercise per Session: Stress: ??? Feeling of Stress : Social Connections: ??? Frequency of Communication with Friends and Family: ??? Frequency of Social Gatherings with Friends and Family: ??? Attends Jainism Services: ??? Active Member of Clubs or Organizations: ??? Attends Club or Organization Meetings: ??? Marital Status: Intimate Partner Violence: ??? Fear of Current or Ex-Partner: ??? Emotionally Abused: ??? Physically Abused: ??? Sexually Abused: Physical Exam: Deferred Assessment: NICOTINE DEPENDENCE Fran Justin is a 55 y.o. male seen today for smoking cessation counseling. He is currently smoking 1 ppd and does wish to quit at this time. I reviewed the physiology of addiction as well as apparent health risks specific for him. I discussed the options for treatment including NRT, Zyban and Chantix. I reviewed possible side effects of therapy. I stressed that medication alone is not optimum but used in conjunction with behavioral counseling will add to success for cessation. Behavioral counseling in addition to pharmacotherapy recommendations were given. Behavioral counseling includes delaying. The patient has opted for starting the 21 mg Nicotine patch for continuous replacement and 4mg gum or the nicotrol inhaler as needed for cravings. Stage of Change: Precontemplation: Contemplation: X Preparation: Action: Maintenance: CO level: Deferred 20 minutes were spent with this patient in counseling for tobacco cessation. Plan: Quit Date: planning to wean down 1. Start 21 mg Nicotine patch for continuous replacement and 4 mg gum or the nicotrol inhaler as needed for cravings, discussed how to use and side effects 2. Discussed behavioral change including delaying 3. Call with any questions or concerns 4. Follow up in 1 week, 10/08/20 at 1pm over the phone Patient verbally consents to this telephone visit and understands that this visit may be billed, similar to a clinic office visit. I provided care to the patient today via telephone call. The total time associated with this visit was 20 minutes. Estrella Gomez APRN 09/30/20 Thoracic Surgery - Tobacco Cessation [facility] documented in this encounter Plan of Treatment Not on file documented as of this encounter Visit Diagnoses Diagnosis Nicotine dependence, cigarettes, uncomplicated Tobacco abuse counseling Counseling on substance use and abuse documented in this encounter Care Teams [facility] Relationship Specialty Start Date End Date Nino Underwood MD [address] [place] [address] PCP - General Family Medicine 09/11/20 03/29/23 documented as of this encounter
--- OUTSIDE RECORDS SUMMARY | 2024-02-03 13:18 | XMS_ITS | Encounter Summary ---
Author Organization [facility] Address [address] [place] [address] Care Team Providers Care Crewman Main Battle Tank Name Role Phone Mitchell Del Rosario MD Primary Care Provider Mitchell Bragg MD Primary Care Provider Braeden johnson Encounter Details Date Type Department Care Team (Late st Contact Info) Description 04/12/2007 Results Only [facility] [address] [place] [address] Unknown, Provider, Social History Tobacco Use Types Packs/Day Years Used Date Smoking Tobacco: Never Assessed Sex and Gender Information Value Date Recorded Sex Assigned at Not on file Gender Identity Male 11/20/2019 11:35 EDT Sexual Orientation Not on file documented as of this encounter Plan of Treatment Not on file documented as of this encounter Procedures Procedure Name Priority Date/Time Associated Diagnosis Comments HEP A,B,C PROFILE Routine 04/12/2007 11: 45 EST HEPATITIS A ANTIBODY IGM Routine 04/12/2007 11:45 EST HIV 1/2 ANTIGEN AND ANTIBODY, 4TH GENERATION Routine 04/12/2007 11:45 EST [facility]AD, [facility] Routine 04/12/2007 11:45 EST documented in this encounter Results * HEPATITIS A,B,C PROFILE- [facility] USE ONLY (04/12/2007 11:45 EST) Hepatitis B Surface Ag Neg [facility] Hepatitis B Surface Ab Neg [facility] Hep B Core Ab Neg [facility] Hep A Antibody Pos Antibody to Hepatitis A detected. [facility] Hepatitis C Ab Neg [facility] 04/12/2007 11:4 5 EST 04/12/2007 21:39 EST Provider Unknown CHEMISTRY & BLOOD GA S ORDERABLES Performing Organization Address [facility] Co de Phone Number [facility] [address] [place] [address] * LEAD, [facility] (04/12/2007 11:45 EST) Lead <5 0 - 20 ug/dl [facility] 04/12/2007 11:4 5 EST 04/12/2007 21:39 EST Provider Unknown CHEMISTRY & BLOOD GA S ORDERABLES Performing Organization Address [facility] de Phone Number [facility] [address] [place] [address] * HIV ANTIBODY (04/12/2007 11:45 EST) HIV 1/2 Antibody NONREACT. NR [facility] 04/12/2007 11:4 5 EST 04/12/2007 21:39 EST Provider Unknown IMMUNOLOGY AND SEROL OGY ORDERABLES Performing Organization Address [facility] de Phone Number [facility] [address] [place] [address] * HEPATITIS A ANTIBODY IGM (04/12/2007 11:45 EST) Hep A Antibody IgM Neg Result consistent with past exposure, NOT a recent infection. [facility] 04/12/2007 11:4 5 EST 04/12/2007 21:39 EST Provider Unknown CHEMISTRY & BLOOD GA S ORDERABLES Performing Organization Address [facility] Co de Phone Number [facility] [address] [place] [address] documented in this encounter Visit Diagnoses Not on filedocumented in this encounter Care Teams Crewman Main Battle Tank Relationship Specialty Start Date End Date Zetawnya, Mitchell M, MD PCP - General 01/08/09 09/24/10 Mitchell Del Rosario MD PCP - General 11/05/08 01/07/09 documented as of this encounter
--- OUTSIDE RECORDS SUMMARY | 2024-02-03 13:18 | XMS_ITS | Encounter Summary ---
Author Organization [facility] Address [facility] [place] [address] Care Team Providers Care Community Outreach Coordinator Name Role Phone Nino Underwood MD Primary Care Provider [phone] Encounter Details Date Type Department Care Team (Late st Contact Info) Description 09/11/2020 Telephone [place] [address] Marko Jordan MD [facility] [place] [address] Social History Tobacco Use Types Packs/Day Years Used Date Smoking Tobacco: Never Assessed Sex and Gender Information Value Date Recorded Sex Assigned at Not on file Gender Identity Not on file Sexual Orientation Not on file documented as of this encounter Miscellaneous Notes * Telephone Encounter - Marko Jordan MD - 09/11/2020 5:59 PM EDT I received a call via the transfer center regarding Mr. Justin. He is a 55-year-old male with a history of lymphocyte rich Hodgkin's lymphoma and COPD who recentlyfinished radiation therapy. He is a heavy smoker and currently smoked 2ppd. He has been admitted [facility] for the last few days. He was admitted with a diagnosis of pneumonia. He reportedlyhad a CT scan on September 07 demonstrating a right middle lobe pneumonia without obvious significant additional pleural findings. I do not have access to these images. He has apparently clinically worsened over the last 48 to 72 hours and now has an oxygen requirement. He has a leukocytosis to 27,000.His vital signs are otherwise stable and he is afebrile. He is on the medicine floor at [facility]. He had a CT scan done at approximately noon yesterday (09/10/20) demonstrating what appears to be a large right-sided empyema. This appears to be a large fluid collection with gas bubbles presentin it with significant collapse of the right lower lobe and the right middle lobe. There is a smallleft effusion as well. Given these imaging and clinical findings, I recommended that he be transferred to our facility urgently as they do not have the capability to place a drainage tube or perform potentially definitive surgical therapy. Due to bed availability, he will be transferred to our emergency room where he will be evaluated bythe thoracic surgery team with plans for likely pigtail drainage and admission for antibiotics and likely intrapleural lytics. Marko Jordan MD 09/11/2020 documented in this encounter Plan of Treatment Not on file documented as of this encounter Visit Diagnoses Not on filedocumented in this encounter Care Teams Community Outreach Coordinator Relationship Specialty Start Date End Date Nino Underwood MD [address] [place] [address] PCP - General Family Medicine 09/11/20 03/29/23 documented as of this encounter
--- OUTSIDE RECORDS SUMMARY | 2024-02-03 13:18 | XMS_ITS | Encounter Summary ---
[place] [address] Care Team Providers Care Senior Salesforce Developer Name Role Phone Nino Underwood MD Primary Care Provider [phone] Encounter Details Date Type Department Care Team (Late st Contact Info) Description 12/31/2020 Ancillary Procedure [place] [address] Nino Underwood MD [address] [place] [id number] Social History Tobacco Use Types Packs/Day Years Used Date Smoking Tobacco: Every Day Cigarettes 3 40 Started: 09/07/1980; Last attempted to quit: 09/07/2020 Smokeless Tobacco: Never Comments:now smoking 2 ppd Alcohol Use Standard [...] Associated Diagnosis Comments FILM LIBRARY STORAGE ONLY NM PET/CT Routine 12/31/2020 12:00 AM EDT documented in this encounter Results * Film Library- Storage Only NM Pet / CT (12/31/2020 12:00 AM EDT) Narrative [facility] [place] 2[place] - 01/09/2021 4:27 PM EDT This exam is auto-finalizing. It's purpose is for storage only. Nino Underwood MD [facility] FILM LIBRARY ORD ERABLES [place], [place] documented in this encounter Visit Diagnoses Not on filedocumented in this encounter Care Teams Senior Salesforce Developer Relationship Specialty Start Date End Date Nino Underwood MD [address] [place] [address] PCP - General Family Medicine 09/11/20 03/29/23 documented as of this encounter
--- OUTSIDE RECORDS SUMMARY | 2024-02-03 13:18 | XMS_ITS | Encounter Summary ---
Author Organization [facility] Address [address] [place] [address] Care Team Providers Care Licensed Nuclear Operator Name Role Phone Unavailable Primary Care Provider Unavailabl e Encounter Details Date Type Department Care Team (Latest Contact Info) Description 06/04/1999 17:06 EST Hospital Encounter [facility] Emergency Department - [facility] [address] [place] [address] Emergency, Default, MD Discharge Disposition: Home or [...]
--- OUTSIDE RECORDS SUMMARY | 2024-02-03 13:18 | XMS_ITS | Encounter Summary ---
Author Organization [facility]ending [facility] Address [facility] [place] [address] Care Team Providers Care Automatic Blocker Name Role Phone Jaxon Napier MD Primary Care Provider [phone] Encounter Details Date Type Department Care Team (Late st Contact Info) Description 09/10/2020 Ancillary Procedure [place] [address] Marko Jordan MD [facility] [place] [address] Social History Tobacco Use Types Packs/Day Years [...] Comments FILM LIBRARY STORAGE ONLY CT CHEST Routine 09/10/2020 12:00 AM EDT documented in this encounter Results * Film Library- Storage Only CT Chest (09/10/2020 12:00 AM EDT) Narrative [facility] [place] - 09/11/2020 3:43 PM EDT This exam is auto-finalizing. It's purpose is for storage only. Marko Jordan MD IMG FILM LIBRARY OR DERABLES [place], [place] documented in this encounter Visit Diagnoses Not on filedocumented in this encounter Care Teams Automatic Blocker Relationship Specialty Start Date End Date Jaxon Napier MD [address] [place] [address] PCP - General 08/10/12 09/10/20 documented as of this encounter
--- OUTSIDE RECORDS SUMMARY | 2024-02-03 13:18 | XMS_ITS | Encounter Summary ---
Author Organization [facility] Address [place] [address] Care Team Providers Care Body Recall Instructor Name Role Phone Jaxon Napier MD Primary Care Provider [phone] Encounter Details Date Type Department Care Team (Late st Contact Info) Description 09/07/2020 Ancillary Procedure [place] [id number] Social History Tobacco Use Types Packs/Day Years [...] Associated Diagnosis Comments FILM LIBRARY STORAGE ONLY DX CHEST STAT 09/07/2020 12:00 AM EDT documented in this encounter Results * Film Library- Storage Only DX Chest (09/07/2020 12:00 AM EDT) Narrative [facility] - 09/11/2020 7:34 PM EDT This exam is auto-finalizing. It's purpose is for storage only. Marko Jordan MD IMG FILM LIBRARY OR DERABLES [place], [place] documented in this encounter Visit Diagnoses Not on filedocumented in this encounter Care Teams Body Recall Instructor Relationship Specialty Start Date End Date Jaxon Napier MD [address] [place] [address] PCP - General 08/10/12 09/10/20 documented as of this encounter
--- OUTSIDE RECORDS SUMMARY | 2024-02-03 13:18 | XMS_ITS | Encounter Summary ---
[place] [address] Care Team Providers Care Drier Feeder Name Role Phone Nino Underwood MD Primary Care Provider [phone] Encounter Details Date Type Department Care Team (Late st Contact Info) Description 09/11/2020 7:40 PM EDT Ancillary Procedure [place] [id number] Social History Tobacco Use Types Packs/Day Years Used Date Smoking Tobacco: Never Assessed Sex and Gender Information Value Date Recorded Sex Assigned at Not on file Gender Identity Not on file Sexual Orientation Not on file documented as of this encounter Plan of Treatment Not on file documented as of this encounter Procedures Procedure Name Priority Date/Time Associated Diagnosis Comments REQUEST FOR 2ND READ CT CHEST STAT 09/11/2020 7:37 PM EDT documented in this encounter Results * Request For 2nd Read CT Chest (09/11/2020 7:37 PM EDT) Anatomical Region Laterality Modality Chest SO Impressions 09/11/2020 7:59 PM EDT 1. ??Increased size of the right pleural fluid collection which is loculated and contains foci of gas consistent with an empyema. 2. ??Right middle lobe collection concerning for abscess has increased in size. 3. ??Right lower lobe collapse. 4. ??New small left pleural effusion. Thank you for letting us participate in the care of this patient. ??If you are a health care provider and have any questions regarding this report, please contact the number below. ??For patients who have questions please contact the health janitor caretaker that requested your imaging first. ? Narrative 09/11/2020 7:59 PM EDT EXAMINATION: REQUEST FOR 2ND READ CT CHEST CLINICAL HISTORY: right sided empyema?; Sending Institution [facility]; Date of exam 20200910; I believe a reinterpretation of this exam may alter care of Patient. Yes; What Modality is the exam? CT Scan; Body Part (please add comments as necessary): Chest TECHNIQUE: A noncontrast chest CT performed at [facility] on September 10, 2020 is submitted for review. 3 mm thick axial contiguous sections were obtained through the chest via helical acquisition without intravenous contrast administration. Thin-section reconstructions as well as coronal and sagittal reformatted images were generated. COMPARISON: September 07, 2020 FINDINGS: Pulmonary parenchyma: A 3 mm nodule in the left lower lobe (series 9, image 500) is unchanged. Centrilobular emphysema is present, particularly in the upper lobes. A spiculated 6 mm opacity in the right lower lung (series 9, image 301) is unchanged. The right lower lobe is now collapsed. The previously described right middle lobe collection has become larger in size and is now contiguous with the atelectatic right lower lobe. The amount of air-filled cavitation in the right middle lobe collection has diminished but foci of air are still present. Airways: The trachea and left-sided airways are clear. The right lower and middle lobe bronchi are narrowed. Pleura: There has been a substantial increase in the size of the right pleural fluid collection. This collection has a scalloped shape indicating loculation. Multiple collections of gas are present in the pleural fluid. There is now a new small left pleural effusion. Mediastinum and lymph nodes: A borderline enlarged right lower paratracheal lymph node is seen. Evaluation of the keith is limited due to lack of intravenous contrast. Heart, pericardium, and great vessels: The heart size is normal. Coronary artery calcification can be seen. There is a central venous catheter extending to the distal superior vena cava. Lower neck: No significant findings. Upper abdomen: No significant findings. Body wall soft tissues: A port is present in the left upper anterior chest wall. Skeletal structures: No acute osseous pathology. Procedure Note Simone Scott MD - 09/11/2020 EXAMINATION: REQUEST FOR 2ND READ CT CHEST CLINICAL HISTORY: right sided empyema?; Sending Institution [facility]; Dateof exam 20200910; I believe a reinterpretation of this exam may alter care ofPatient. Yes; What Modality is the exam? CT Scan; Body Part (please add commentsas necessary): Chest TECHNIQUE: A noncontrast chest CT performed at [facility] on 2020 is submitted for review. 3 mm thick axial contiguous sections were obtained through the chest viahelical acquisition without intravenous contrast administration. Thin-section reconstructions as well as coronal and sagittal reformatted images were generated. COMPARISON: September 07, 2020 FINDINGS: Pulmonary parenchyma: A 3 mm nodule in the left lower lobe (series 9,image 500) is unchanged. Centrilobular emphysema is present, particularly in theupper lobes. A spiculated 6 mm opacity in the right lower lung (series 9, [id number]) is unchanged. The right lower lobe is now collapsed. The previouslydescribed right middle lobe collection has become larger in size and is nowcontiguous with the atelectatic right lower lobe. The amount of air-filled cavitationin the right middle lobe collection has diminished but foci of air arestill present. Airways: The trachea and left-sided airways are clear. The right lowerand middle lobe bronchi are narrowed. Pleura: There has been a substantial increase in the size of the rightpleural fluid collection. This collection has a scalloped shape indicatingloculation. Multiple collections of gas are present in the pleural fluid. There is nowa new small left pleural effusion. Mediastinum and lymph nodes: A borderline enlarged right lowerparatracheal lymph node is seen. Evaluation of the keith is limited due to lack ofintravenous contrast. Heart, pericardium, and great vessels: The heart size is normal. Coronaryartery calcification can be seen. There is a central venous catheter extending tothe distal superior vena cava. Lower neck: No significant findings. Upper abdomen: No significant findings. Body wall soft tissues: A port is present in the left upper anterior chestwall. Skeletal structures: No acute osseous pathology. IMPRESSION 1. Increased size of the right pleural fluid collection which isloculated and contains foci of gas consistent with an empyema. 2. Right middle lobe collection concerning for abscess has increased insize. 3. Right lower lobe collapse. 4. New small left pleural effusion. Thank you for letting us participate in the care of this patient. If youare a health care provider and have any questions regarding this report,please contact the number below. For patients who have questions please contactthe health janitor caretaker that requested your imaging first. Marko Jordan MD IMG OUTSIDE INTERPR ETATION ORDERABLES documented in this encounter Visit Diagnoses Not on filedocumented in this encounter Care Teams Drier Feeder Relationship Specialty Start Date End Date Nino Underwood MD [address] [place] [address] PCP - General Family Medicine 09/11/20 03/29/23 documented as of this encounter
--- OUTSIDE RECORDS SUMMARY | 2024-02-03 13:18 | XMS_ITS | Encounter Summary ---
[place] [address] Care Team Providers Care Plastic Installer Name Role Phone Nino Underwood MD Primary Care Provider [phone] Encounter Details Date Type Department Care Team (Late st Contact Info) Description 09/20/2020 Orders Only [place] [address] Patty Byrnes RN Social History Tobacco Use Types Packs/Day [...] as of this encounter Progress Notes * Patty Byrnes, RN - 09/20/2020 7:20 PM EDTSummary: post op call Thoracic Surgery Nursing Post-operative Follow up: UNABLE TO REACH Mr. ALMODOVAR, left message to call back Hx: Hx lymphoma s/p CHOP therapy with XRT and RLL abscess and loculated effusion, s/p IR pigtail placement and removal, discharged on 09/18/20, with Augmentin documented in this encounter Plan of Treatment Not on file documented as of this encounter Visit Diagnoses Not on filedocumented in this encounter Care Teams Plastic Installer Relationship Specialty Start Date End Date Nino Underwood MD [address] [place], [place] [id number] PCP - General Family Medicine 09/11/20 03/29/23 documented as of this encounter
--- OUTSIDE RECORDS SUMMARY | 2024-02-03 13:18 | XMS_ITS | Encounter Summary ---
[place] [address] Care Team Providers Care Tree Marker Name Role Phone Jaxon Napier MD Primary Care Provider [phone] Encounter Details Date Type Department Care Team (Late st Contact Info) Description 03/26/2020 Ancillary Procedure [place] [address] Nino Underwood MD [address] [place] [id number] Social History Tobacco Use Types Packs/Day Years [...] FILM LIBRARY STORAGE ONLY NM PET/CT Routine 03/26/2020 12:00 AM EDT documented in this encounter Results * Film Library- Storage Only NM Pet / CT (03/26/2020 12:00 AM EDT) Narrative [facility] - 01/09/2021 4:39 PM EDT This exam is auto-finalizing. It's purpose is for storage only. Nino Underwood MD G FILM LIBRARY ORD ERABLES [place], [place] documented in this encounter Visit Diagnoses Not on filedocumented in this encounter Care Teams Tree Marker Relationship Specialty Start Date End Date Jaxon Napier MD [address] [place] [address] PCP - General 08/10/12 09/10/20 documented as of this encounter
--- OUTSIDE RECORDS SUMMARY | 2024-02-03 13:18 | XMS_ITS | Encounter Summary ---
Author Organization [facility] Address [facility] [place] [address] Care Team Providers Care Community Development Officer Name Role Phone Nino Underwood MD Primary Care Provider [phone] Reason for Referral * Diagnostic Test (Routine) - Closed Specialty Diagnoses / Procedures Referred By Mavis rhodes Referred To Contact Radiology Diagnoses Empyema Procedures CT Chest w Contrast Maryellen Chandler PA [facility] [place] [address] [facility] [place] [address] Referral ID Status Reason Start Date Expiration Date V isits Requested Visits Authorized [id number] Closed Specialty Service Requested 09/19/2020 03/21/2022 1 1 Reason for Visit * Reason Comments Pneumonia Empyema from [facility] for thoracic surgery * Auth/Cert Specialty Diagnoses / Procedures Referred By Contac t Referred To Contact Diagnoses Empyema Empyema Procedures ER IPI Referral ID Status Reason Start Date Expiration Date Visits Re quested Visits Authorized [id number] 1 1 Encounter Details Date Type Department Care Team (Latest Contact Info) Description 09/11/2020 7:01 PM EDT - 09/17/2020 5:30 PM EDT Hospital Encounter [address] [place] [address] Debbie Salgado MD [facility] [place] [address] Marko Jordan MD [facility] [place] [address] Lobar pneumonia; Empyema Discharge Disposition: Home with VNA Social History Tobacco Use Types Packs/Day Years [...] Sign Reading Time Taken Comments Blood Pressure 129/85 09/17/2020 12:26 PM EDT Pulse 81 09/16/2020 11:40 AM EDT Temperature 37.2 ??C (99 ??F) 09/17/2020 7:41 AM EDT Respiratory Rate 17 09/17/2020 12:26 PM EDT Oxygen Saturation 92% 09/17/2020 12:26 PM EDT Inhaled Oxygen Concentration - - Weight 56 kg (123 lb 8 oz) 09/15/2020 5:46 AM ED T Height 162.6 cm (5' 4) 09/12/2020 2:51 AM EDT Body Mass Index 21.2 09/12/2020 2:51 AM EDT documented in this encounter Discharge Summaries * Maryellen Chandler PA - 09/17/2020 2:19 PM EDT Images from the original note were not included. Department of Thoracic Surgery - Discharge Summary Patient Name: Zeeshan Almodovar Patient Age: 55 y.o. Birthdate: 1965 Admit date: 09/11/2020 Discharge date: 09/17/20 Attending Physician: Marko Jordan MD Discharge Diagnoses (Hospital Problems) and Secondary Diagnoses (Chronic Problems): Active Hospital Problems Diagnosis ??? Severe protein-calorie malnutrition <75% of estimated energy requirement for > or equal to 1 month, >10% weight loss in 6 months, Mild subcutaneous fat loss and Severe lean muscle loss is consistent with severe protein-caloriemalnutrition in the setting of chronic illness (Timmy connors al, JPEN J Parenteral Enteral Nutr. 2011; 36(3): 273-83) ??? Empyema Resolved Hospital Problems No resolved problems to display. There are no active non-hospital problems to display for this patient. Operations/Major Procedures: Operations: Case Date: Surgeon: * Surgery not found * Procedure: * No surgery found * Other Major Procedures: Bedside right pigtail chest tube placement, 09/12/2020 History of Presentation: Zeeshan Almodovar is a 55 y.o. 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 He was treated with ceftriaxone and azithromycin.??Since that time he has clinically worsened and developed an increasing O2 requirement. His WBC had risen to 27.??He had a CT??chest on??09/10/20??demonstrating what appears to be a??6cm right lung abscess and??large right-sided empyema causing significant volume loss of the RLL.??He was transferred to [facility] and IR placed a pigtail catheter in his right chest. Hospital Course: Zeeshan Almodovar was admitted to [facility] on 09/11/2020 admitted through theED. He was transferred to the floor where a Right sided pigtail catheter was placed and drained serous fluid. A CT Chest was obtained on hospital day 2 which noted a persistent right sided loculated pleural effusion. Tpa/Dornase therapy was initiated and he underwent 4 cycles. On hospital day 4, CTchest was obtained to evaluate the size of effusion, which showed decreased right pleural effusion and persistent right lung abscess. He had been on IV Vanc/ Zosyn since admission. The IR pleural fluid culture grew Gram Positive Cocci. On Infectious disease recommendations we switched Mr. Almodovar's IVvanc/zosyn to PO Augmentin for 28 day course. Mr. Dickson Chest tubes were discontinued on day #6 of his hospital course and the follow up chest x-ray demonstrated no pneumothorax. By day # 6 of his hospital course he had met all criteria for discharge to home. Pain was controlled on oral medications. He had walked 5 minutes. He was tolerating aregular diet and passing flatus. Vital signs: Vital Signs Temp: 37.2 ??C (99 ??F) Temp src: Oral Heart Rate from SpO2: 94 bpm Heart Rate: 81 Heart Rate Source: Monitor Resp: 17 BP: 129/85 MAP (NBP): 100 mmHg BP Method: Automatic BP Location: Right arm Patient Position: Lying SpO2: 92 % O2 Flow Rate (L/min): 2 L/min O2 Device: None (Room air) Admission Wt: 56.8 kg Last Wt: Wt Readings from Last 3 Encounters: 09/15/20 56 kg (123 lb 8 oz) Pertinent physical exam findings prior to discharge: Gen: NAD, pleasant, sitting in bed HEENT: normocephalic, atraumatic, EOMI, sclerae anicteric Neck: supple, trachea midline Card: RRR, no M/R/G appreciated Pulm: CTAB, no wheeze/ronchi/rales appreciated, non-labored breathing on RA. Chest tube incisions c/d/i Abd: soft, NT, BS+ Ext: warm, dry, no edema Neuro: A&Ox3, nonfocal, conversant Important Lab Data: Lab Results Component Value Date WBC 27.2 (H) 09/17/2020 HGB 7.9 (L) 09/17/2020 HCT 24.2 (L) 09/17/2020 MCV 96.4 (H) 09/17/2020 Lab Results Component Value Date NA 140 09/17/2020 K 4.2 09/17/2020 CL 106 09/17/2020 CO2 28 09/17/2020 Lab Results Component Value Date CREATININE 0.52 (L) 09/17/2020 Lab Results Component Value Date BUN 13 09/17/2020 Lab Results Component Value Date PREALBUMIN 3 (L) 09/11/2020 Recent Labs 09/11/202026 PT 14.1* PTT 32 INR 1.2 Studies: XR Chest PA & Lateral (Generic) Final Result No pneumothorax or other interval change seen post right chest tube removal. Thank you for letting us participate in the care of this patient. If you are a health care provider and have any questions regarding this report, please contact the number below. For patients who have questions please contact the health animal care assistant that requested your imaging first. Chest PA & Lateral (Generic) Final Result 1. Interval removal of posterior basal right pleural catheter. No pneumothorax. 2. Stable position of ventral right pleural catheter. 3. Persistent streaky and confluent airspace opacities at the right lung base. 4. Stable trace left pleural effusion. Thank you for letting us participate in the care of this patient. If you are a health care provider and have any questions regarding this report, please contact the number below. For patients who have questions please contact the health animal care assistant that requested your imaging first. Chest PA & Lateral (Generic) Final Result 2 pigtail catheters are present in the right lower chest. Fluid collection in the region of the right middle lobe has increased in size. Thank you for letting us participate in the care of this patient. If you are a health care provider and have any questions regarding this report, please contact the number below. For patients who have questions please contact the health animal care assistant that requested your imaging first. Guided Drain Chest Tube/Pleural Drain Final Result Impression: Successful CT-guided drain placement in right anteroinferior parafissural collection. Plan/Disposition: 1) To Angio recovery room, may discharge to thoracic surgery when meets criteria. 2) Forward flush every 12 hours with 5 mL of normal saline. Record outputs daily. Venetian Blind Maker(s): Resident/Fellow: Dr. Roosevelt Garcia Attending: Dr. Jaxon Espinosa Procedure/Teaching Attestation: I was present for the procedure. Moderate Sedation Attestation: I was present during the intra-service time as documented by IR nurse. I have personally reviewed the image(s) and the resident's interpretation and agree with the findings, Jaxon Espinosa DO at 09/16/2020 1:29 PM Thank you for letting us participate in the care of this patient. If you are a health care provider and have any questions regarding this report, please contact the number below. For patients who have questions please contact the health animal care assistant that requested your imaging first. Chest w Contrast Final Result 1. Decreased right pleural fluid collection, small residual with air and fluid posteromedially. 2. Right middle lobe abscess is unchanged. 3. Reactive right paratracheal and subcarinal lymph clary enlargement unchanged. Preliminary report signed by: Ugo Martinez at 09/15/2020 11:32 AM I have personally reviewed the image(s) and the resident's interpretation and agree with the findings, Sharon Freitas MD at 09/15/2020 11:45 AM Thank you for letting us participate in the care of this patient. If you are a health care provider and have any questions regarding this report, please contact the number below. For patients who have questions please contact the health animal care assistant that requested your imaging first. Chest PA & Lateral (Generic) Final Result * Unchanged small right pleural effusion. * Improved right lower lobe airspace opacities. * Persistent partial opacification of the right middle lobe. Thank you for letting us participate in the care of this patient. If you are a health care provider and have any questions regarding this report, please contact the number below. For patients who have questions please contact the health animal care assistant that requested your imaging first. Chest PA & Lateral (Generic) Final Result 1. Similar position of the right pleural drain with the pigtail along the posterior costophrenic angle. Slight decrease in size of right pleural effusion. No change in fluid tracking along the major and minor fissures. Thank you for letting us participate in the care of this patient. If you are a health care provider and have any questions regarding this report, please contact the number below. For patients who have questions please contact the health animal care assistant that requested your imaging first. Chest PA & Lateral (Generic) Final Result * Interval repositioning of the right inferior pigtail pleural drain. * Decreased right pleural fluid. * Improved aeration of the right lower lung with residual right lower lobe patchy airspace opacities. * Persistent near complete opacification of the right middle lobe. * Mild central vascular congestion. * Interval development of emphysema tracking along the right chest wall in the right lower neck. Thank you for letting us participate in the care of this patient. If you are a health care provider and have any questions regarding this report, please contact the number below. For patients who have questions please contact the health animal care assistant that requested your imaging first. Chest wo Contrast (Generic) Final Result A right-sided chest tube has been placed. The right-sided pleural fluid collection is diminished in size. There has been partial reaeration of the right lower lobe. Gas collections within the right-sided pleural fluid indicate an empyema. The increase in gas may be related to the recent tube placement. Thank you for letting us participate in the care of this patient. If you are a health care provider and have any questions regarding this report, please contact the number below. For patients who have questions please contact the health animal care assistant that requested your imaging first. Chest One View Final Result * Interval placement of a right inferior approach pleural pigtail catheter * Decreased opacification of the right lower lung field, likely a combination of decreased pleural fluid and improved aeration. * No definite pneumothorax is evident. Thank you for letting us participate in the care of this patient. If you are a health care provider and have any questions regarding this report, please contact the number below. For patients who have questions please contact the health animal care assistant that requested your imaging first. Request For 2nd Read CT Chest Final Result 1. Increased size of the right pleural fluid collection which is loculated and contains foci of gas consistent with an empyema. 2. Right middle lobe collection concerning for abscess has increased in size. 3. Right lower lobe collapse. 4. New small left pleural effusion. Thank you for letting us participate in the care of this patient. If you are a health care provider and have any questions regarding this report, please contact the number below. For patients who have questions please contact the health animal care assistant that requested your imaging first. Film Library- Storage Only CT Chest Final Result Film Library- Storage Only DX Chest Final Result CT Chest wwo Contrast (Results Pending) Pending Studies and Lab Data: The patient will need the following test completed on: 09/11/2020 1. Body Fluid Culture, Aerobic & Anaerobic Pleural Fluid Diagnosis: Authorizing Provider: Marko Jordan MD Discharge Conditions/Prognosis: Stable Discharge to: Home Discharge Medications: Your Medications New Medications Dose Details acetaminophen 500 mg Tab Commonly known as: Tylenol Take 2 tablets by mouth every 6 hours as needed for Pain. 1,000 mg Quantity: 30 tablet Refills: 0 amoxicillin-clavulanate 875-125 mg Tab Commonly known as: Augmentin Take 1 tablet by mouth 2 times daily for 28 days. 1 tablet Quantity: 56 tablet Refills: 0 cyclobenzaprine 10 mg Tab Commonly known as: Flexeril Take 1 tablet by mouth 3 times daily as needed for Muscle spasms. 10 mg Quantity: 30 tablet Refills: 0 docusate sodium 100 mg Cap Commonly known as: Colace Take 1 capsule by mouth 2 times daily for 10 days. 100 mg Quantity: 20 capsule Refills: [address] 60 mg Cpdr Commonly known as: Cymbalta Take 1 capsule by mouth daily. Start taking on: September 18, 2020 60 mg Quantity: 30 tablet Refills: 11 famotidine 40 mg Tab Commonly known as: Pepcid Take 1 tablet by mouth nightly. 40 mg Quantity: 30 tablet Refills: 12 HYDROmorphone 2 mg Tab Commonly known as: Dilaudid Take 1 tablet by mouth every 4 hours as needed for Pain (For pain not controlled by Tylenol and Ibuprofen). 2 mg Quantity: 15 tablet Refills: 0 lamoTRIgine 100 mg Tab Commonly known as: LaMICtal Take 1 tablet by mouth 2 times daily. 100 mg Quantity: 30 tablet Refills: 12 melatonin 3 mg Tab Take 2 tablets by mouth nightly. 6 mg Quantity: 60 each Refills: 0 mometasone 220 mcg/ actuation (14) Aepb Commonly known as: ASMANEX Inhale 1 puff into the lungs nightly. Start taking on: September 18, 2020 220 mcg Quantity: 0.007 g Refills: 0 polyethylene glycoL 17 gram Pwpk Commonly known as: Miralax Take 17 g by mouth daily. Start taking on: September 18, 2020 17 g Quantity: 14 each Refills: 0 pregabalin 100 mg Cap Commonly known as: LYRICA Take 1 capsule by mouth 3 times daily. 100 mg Quantity: 90 tablet Refills: 0 QUEtiapine 100 mg Tab Commonly known as: SEROquel Take 1 tablet by mouth nightly. 100 mg Quantity: 30 tablet Refills: 0 senna 8.6 mg Tab Commonly known as: Senokot Take 2 tablets by mouth 2 times daily. 2 tablet Quantity: 60 tablet Refills: 0 Updated Allergies/ADRs: Allergies Allergen Reactions ??? Wellbutrin [Bupropion] Instructions Given to Patient at Discharge: Patient Instructions Call if you have a fever of greater than 101 degrees, shaking chills, develop redness or drainage from your incision site(s), or if you have questions. During normal business hours, Wednesday- Wednesday 8:00 a.m.-5:00 p.m., please call to speak to a nurse in the Thoracic Clinic at [phone]. After hours or on weekends or holidays please call: [phone] and ask to speak to the Thoracic Surgeon ribbon cutter. Exercise & Activity Level: As you recover from surgery exercise at least 30 minutes a day. Thiscan be broken up into several times a day to achieve this goal at first, but you will be able to work up to doing all 30 minutes at once. Walking, treadmill, stationary bike, elliptical machine or there stationary exercise equipment is appropriate. Take your incentive spirometer home with you. You should use this every hour while awake, 10 times each. This helps you to exercise your respiratory muscles and to breathe deeply. Taking purposeful deep breaths can be just as effective. Do not lift more than 10 pounds for 6-8 weeks (nothing heavier than a gallon of milk). Don???t exhaust yourself. Rest between activities as you recover from your procedure. Diet: You should follow a regular, healthy diet. Driving: No driving for 1 week or while taking narcotic pain medication. Shower/Bath: You may shower daily starting 2 days after chest tube removal, no bathing or swimming until your follow-up appointment. Incision care: Wash your incision(s) daily with soap and rinse well, pat dry. Assess for any signs of infection such as increased redness, pain, warmth or drainage. If you had a chest tube, you may remove the dressing over the chest tube site in 2 days after the chest tube was removed and leave it open to the air if it is not draining. Otherwise change the dressing twice a day and as needed. The dressing may remain off once there is no drainage. If you have steri-strips over an incision site, these will remain in place for 7-10 days. You may shower with them, and they will fall off naturally in 7-10 days. If they do not fall off by 10 days, you may remove them. Pain: Pain after surgery is normal. The goal is for you to be able to tolerate pain so you can complete your daily activities. You may notice a burning or numbness on the side of your incision that may include your breast area. This should improve over time but there may be areas that remain numb. You may use a heating pad set on low or medium, over your incision to help relax the muscles in the area and decrease discomfort. Please take your medication as prescribed. If you are not having good pain control, please call and speak to the nurse in the Thoracic Clinic or the Thoracic Surgeon ribbon cutter after hours. Please take over the counter Tylenol (1000 mg) and Ibuprofen (600 mg) together every 6 hours, as instructed, for baseline pain coverage. Do not exceed recommended dosages. Take the Dilaudid, as prescribed, for pain not controlled by the Tylenol and Ibuprofen. We are unable to refill narcotics after 5 pm or on weekends or holidays. If you need more pain medication please call us before you run out of pills. Please allow 3 days for us to mail a refill for pain medication to you. Narcotic medication is intended for your use only. Do not share with others. If you are given a prescription for narcotics please keep these in a safe place and dispose of properly when you no longerneed these pills. Opioid PDMP 09/11/2020 [place] PDMP Query Date 09/17/2020 [place] PDMP Query Date 09/17/2020 [place] PDMP Query Date 09/17/2020 Zeehsan Almodovar is being prescribed a prescription opioid for the treatment of acute post-operative pain related to surgery. Zeeshan Almodovar has been advised to take the smallest dose possible to control their pain and as their pain improves to take smaller doses and increase the time between doses. In addition to this medication, non-opioid medications have been prescribed for adjunct treatment of their pain. Non-pharmacological treatment such as ice, elevation and activity modification have been recommended as appropriate. The Acute Opioid Therapy Informed Consent form has been completed and sent to medical records for scanning to chart. Please take your medication exactly as prescribed. Read all instructions that come with your medication. ?? Using narcotic pain medication (such as oxycodone, hydromorphone (Dilaudid), morphine, fentanyl,or tramadol) may cause addiction. While addiction is more common in people with a personal or family history of addiction, it can occur in anyone. ?? Taking more than the prescribed amount of medication or using with alcohol or other drugs can cause you to stop breathing resulting in coma, brain damage, or . ?? Opioids (oxycodone, hydromorphone/Dilaudid, morphine, fentanyl, tramadol) can slow reaction time, cause drowsiness, or cloud judgement. It is unsafe for you to drive or operate heavy machinery while taking this medication. ?? Opioids (oxycodone, hydromorphone/Dilaudid, morphine, fentanyl, tramadol) are at risk of being diverted by anyone with access to your home. Opioids should be stored in a safe and secure place, such as a locked cabinet or safe. ?? Unused opioids (oxycodone, hydromorphone/Dilaudid, morphine, fentanyl, tramadol) should be disposed of according to the label or patient information. If there are no specific instructions, medications may be returned to a take- back location or mixed with a small amount of water and an undesirable waste substance such as coffee grounds or cat litter. Sleep: Try to establish normal sleep patterns. Long naps during the day may make it hard for you tosleep at night. Use the pain medication at bedtime for the first week at home if needed. Bowel Movements: After surgery, your bowel movements may not be regular for you, but you should be able to get back to your daily routine quickly. Please make sure to take the stool softeners or mildlaxatives as prescribed to get back to your normal routine. If you do not have a bowel movement formore than 2 days, please call the office. Follow up appointments: You will see Dr Jordan in two weeks with a chest Xray within one hour of the appointment. A letter will be mailed to you confirming your appointment information. No future appointments. General Instructions None Opioid PDMP 09/11/2020 [place] PDMP Query Date 09/17/2020 [place] PDMP Query Date 09/17/2020 [place] PDMP Query Date 09/17/2020 Zeeshan Almodovar is being prescribed a prescription opioid for the treatment of acute post-operative pain related to surgery. Zeeshan Almodovar has been advised to take the smallest dose possible to control their pain and as their pain improves to take smaller doses and increase the time between doses. In addition to this medication, non-opioid medications have been prescribed for adjunct treatment of their pain. Non-pharmacological treatment such as ice, elevation and activity modification have been recommended as appropriate. The Acute Opioid Therapy Informed Consent form has been completed and sent to medical records for scanning to chart. Future Appointments and Orders Future Orders Complete By Expires CT Chest wwo Contrast [XNU991 Custom] 09/26/2020 (Approximate) 09/17/2021 Process Instructions: Scheduling Instructions: Questions: Clinical information / hill questions: R. lung abscess eval, PTX, effusion, changes, comparison Do you want to report a missing reason for exam?: Where will study be performed?: External Stat read required?: Does patient require sedation?: GA rationale: Date of injury if applicable: Provider Contact Information: Primary Care Provider: Nino Underwood MD [phone] Discharge References/Attachments: Discharge References/Attachments None For questions regarding this document or issues relating to this hospitalization on the Thoracic Surgery Service, please contact Dr. Jordan's office at . Signed: MADELAINE Lowry 09/17/2020 Thoracic Surgery [facility] CC: PCP: Nino Underwood MD Referring: Dale Sanchez Md [address] [place] [address] documented in this encounter Discharge Instructions * Patient Instructions* Maryellen Chandler PA - 09/12/2020 2:52 PM EDT Images from the original note were not included. Call if you have a fever of greater than 101 degrees, shaking chills, develop redness or drainage from your incision site(s), or if you have questions. During normal business hours, Wednesday- Wednesday 8:00 a.m.-5:00 p.m., please call to speak to a nurse in the [facility] at [phone]. After hours or on weekends or holidays please call: [phone] and ask to speak to the Thoracic Surgeon on c all. Exercise & Activity Level: As you recover from surgery exercise at least 30 minutes a day. Thiscan be broken up into several times a day to achieve this goal at first, but you will be able to work up to doing all 30 minutes at once. Walking, treadmill, stationary bike, elliptical machine or there stationary exercise equipment is appropriate. Take your incentive spirometer home with you. You should use this every hour while awake, 10 times each. This helps you to exercise your respiratory muscles and to breathe deeply. Taking purposeful deep breaths can be just as effective. Do not lift more than 10 pounds for 6-8 weeks (nothing heavier than a gallon of milk). Don???t exhaust yourself. Rest between activities as you recover from your procedure. Diet: You should follow a regular, healthy diet. Driving: No driving for 1 week or while taking narcotic pain medication. Shower/Bath: You may shower daily starting 2 days after chest tube removal, no bathing or swimming until your follow-up appointment. Incision care: Wash your incision(s) daily with soap and rinse well, pat dry. Assess for any signs of infection such as increased redness, pain, warmth or drainage. If you had a chest tube, you may remove the dressing over the chest tube site in 2 days after the chest tube was removed and leave it open to the air if it is not draining. Otherwise change the dressing twice a day and as needed. The dressing may remain off once there is no drainage. If you have steri-strips over an incision site, these will remain in place for 7-10 days. You may shower with them, and they will fall off naturally in 7-10 days. If they do not fall off by 10 days, you may remove them. Pain: Pain after surgery is normal. The goal is for you to be able to tolerate pain so you can complete your daily activities. You may notice a burning or numbness on the side of your incision that may include your breast area. This should improve over time but there may be areas that remain numb. You may use a heating pad set on low or medium, over your incision to help relax the muscles in the area and decrease discomfort. Please take your medication as prescribed. If you are not having good pain control, please call and speak to the nurse in the [facility]acic Clinic or the Thoracic Surgeon ribbon cutter after hours. Please take over the counter Tylenol (1000 mg) and Ibuprofen (600 mg) together every 6 hours, as instructed, for baseline pain coverage. Do not exceed recommended dosages. Take the Dilaudid, as prescribed, for pain not controlled by the Tylenol and Ibuprofen. We are unable to refill narcotics after 5 pm or on weekends or holidays. If you need more pain medication please call us before you run out of pills. Please allow 3 days for us to mail a refill for pain medication to you. Narcotic medication is intended for your use only. Do not share with others. If you are given a prescription for narcotics please keep these in a safe place and dispose of properly when you no longerneed these pills. Opioid PDMP 09/11/2020 [place] PDMP Query Date 09/17/2020 [place] PDMP Query Date 09/17/2020 [place] PDMP Query Date 09/17/2020 Zeeshan Almodovar is being prescribed a prescription opioid for the treatment of acute post-operative pain related to surgery. Zeeshan Almodovar has been advised to take the smallest dose possible to control their pain and as their pain improves to take smaller doses and increase the time between doses. In addition to this medication, non-opioid medications have been prescribed for adjunct treatment of their pain. Non-pharmacological treatment such as ice, elevation and activity modification have been recommended as appropriate. The Acute Opioid Therapy Informed Consent form has been completed and sent to medical records for scanning to chart. Please take your medication exactly as prescribed. Read all instructions that come with your medication. ?? Using narcotic pain medication (such as oxycodone, hydromorphone (Dilaudid), morphine, fentanyl,or tramadol) may cause addiction. While addiction is more common in people with a personal or family history of addiction, it can occur in anyone. ?? Taking more than the prescribed amount of medication or using with alcohol or other drugs can cause you to stop breathing resulting in coma, brain damage, or . ?? Opioids (oxycodone, hydromorphone/Dilaudid, morphine, fentanyl, tramadol) can slow reaction time, cause drowsiness, or cloud judgement. It is unsafe for you to drive or operate heavy machinery while taking this medication. ?? Opioids (oxycodone, hydromorphone/Dilaudid, morphine, fentanyl, tramadol) are at risk of being diverted by anyone with access to your home. Opioids should be stored in a safe and secure place, such as a locked cabinet or safe. ?? Unused opioids (oxycodone, hydromorphone/Dilaudid, morphine, fentanyl, tramadol) should be disposed of according to the label or patient information. If there are no specific instructions, medications may be returned to a take- back location or mixed with a small amount of water and an undesirable waste substance such as coffee grounds or cat litter. Sleep: Try to establish normal sleep patterns. Long naps during the day may make it hard for you tosleep at night. Use the pain medication at bedtime for the first week at home if needed. Bowel Movements: After surgery, your bowel movements may not be regular for you, but you should be able to get back to your daily routine quickly. Please make sure to take the stool softeners or mildlaxatives as prescribed to get back to your normal routine. If you do not have a bowel movement formore than 2 days, please call the office. Follow up appointments: You will see Dr Jordan in two weeks with a chest Xray within one hour of the appointment. A letter will be mailed to you confirming your appointment information. No future appointments. * Attachments The following attachments cannot be sent through Care Everywhere. * Chest Tube Removal: Post-op (Georgian) documented in this encounter Medications at Time of Discharge Medication Sig Dispensed Refills Start Date End Date Ensure Liquid DRINK 1 CAN BY MOUTH THREE TIMES A DAY 08/09/2020 Trelegy Ellipta 100-62.5-25 mcg Disk with Device INHALE ONE PUFF BY MOUTH EVERY DAY 06/26/2020 cyanocobalamin, Vitamin B-12, (Vitamin B-12) 1,000 mcg Tablet Take 1,000 mcg by mouth Daily. 01/23/2020 naloxone (Narcan) 4 mg/actuation [place], Non-Aerosol SPRAY 0.1ML INTO ONE NOSTRIL REPEAT WITH SECOND DEVICE INTO THE OTHER NOSTRIL AFTER 2 3 MINUTES IF NO OR MINIMAL RESPONSE 06/14/2020 methylphenidate (RITALIN) 20 mg Tablet TAKE ONE TABLET BY MOUTH TWICE A DAY 08/16/2020 triamcinolone (KENALOG) 0.1 % Cream APPLY TO AFFECTED AREA S THREE TIMES A DAY NEEDED 05/07/2020 nicotine (NICODERM CQ) 21 mg/24 hr Patch 24 hr APPLY ONE PATCH TO THE SKIN EVERY DAY 06/25/2020 meloxicam (MOBIC) 15 mg Tablet TAKE ONE TABLET BY MOUTH EVERY DAY FOR 30 DAYS NEEDED 06/12/2020 cetirizine (ZyrTEC) 10 mg Tablet TAKE ONE TABLET BY MOUTH AT BEDTIME NIGHTLY 06/03/2020 acetaminophen (Tylenol) 500 mg Tablet Take 2 tablets by mouth every 6 hours as needed for Pain. 30 tablet 09/17/2020 cyclobenzaprine (Flexeril) 10 mg Tablet Take 1 tablet by mouth 3 times daily as needed for Muscle spasms. 30 tablet 09/17/[address] (Cymbalta) 60 mg Capsule, Delayed Release(E.C.) Take 1 capsule by mouth daily. 30 tablet 11 09/18/2020 famotidine (Pepcid) 40 mg Tablet Take 1 tablet by mouth nightly. 30 tablet 12 09/17/2020 HYDROmorphone (Dilaudid) 2 mg Tablet Take 1 tablet by mouth every 4 hours as needed for Pain (For pain not controlled by Tylenol and Ibuprofen). 15 tablet 09/17/2020 lamoTRIgine (LaMICtal) 100 mg Tablet Take 1 tablet by mouth 2 times daily. 30 tablet 12 09/17/2020 melatonin 3 mg Tablet Take 2 tablets by mouth nightly. 60 each 09/17/2020 mometasone (ASMANEX) 220 mcg/ actuation (14) Aerosol Powdr Breath Activated Inhale 1 puff into the lungs nightly. 0.007 g 09/18/2020 polyethylene glycoL (Miralax) 17 gram Powder in Packet Take 17 g by mouth daily. 14 each 09/18/2020 pregabalin (LYRICA) 100 mg Capsule Take 1 capsule by mouth 3 times daily. 90 tablet 09/17/2020 QUEtiapine (SEROquel) 100 mg Tablet Take 1 tablet by mouth nightly. 30 tablet 09/17/2020 senna (Senokot) 8.6 mg Tablet Take 2 tablets by mouth 2 times daily. 60 tablet 09/17/2020 docusate sodium (Colace) 100 mg Capsule Take 1 capsule by mouth 2 times daily for 10 days. 20 capsule 09/17/2020 09/27/2020 amoxicillin-clavulana te (Augmentin) 875-125 mg Tablet Take 1 tablet by mouth 2 times daily for 28 days. 56 tablet 09/17/2020 10/15/2020 documented as of this encounter Progress Notes * Salvatore Senior - 09/17/2020 4:24 PM EDT Mario Encounter Note Patient Name: Zeeshan Rios Nhan : [id number] MR#: [id number] Admit Date: 09/11/2020 7:01 PM Hospital Day 6 days Narrative: Visited to introduce and assess acceptance of [facility] services. Pt was not available and I will visit an other time. Assessment: Intervention and Outcome: Follow-up: Time in Direct Care: Salvatore Senior 09/17/2020 * Julia Garrison RN - 09/17/2020 3:56 PM EDT Patient Name: Zeeshan Almodovar Patient Age: 55 y.o. Birthdate: 1965 Admit date: 09/11/2020 Attending Physician: Marko Jordan MD IV removed, port de-accessed by vascular access team. CT sites assess and Pt educated on keeping the dressing clean, dry and intact for 48 hours. Pt educated on discharge instructions, medications and follow up visits. All questions and concerns addressed. Pt verbalized understanding of instructions. at bedside and understands discharge teaching as well. * Sheba Wolfe RN - 09/17/2020 3:51 PM EDTSummary: Port deaccess for [facility] home Vascular Access Service Patient Guidelines for Self-Care following Port-a Cath De-access (Implanted Mediport device) Your Port-a-Cath was De-accessed (removal of the needle) on 09/17/20 . Your Port- a-Cath has been identified as a: ___x__Single Lumen Dual Lumen Power Port NON Power Port ___x__Your Port-a-Cath has been flushed with Heparin. Your Port-a-Cath has been flushed with . (If allergy to Heparin) Your Port-a-Cath is due for the Monthly flush by 5/18/21 . Your Port-a-Cath should be accessed and flushed with Heparin (to prevent blood clots from forming within the catheter) within 4 weeks of de-access (removal of the needle). Contact your Primary Care Physician if you need assistance with scheduling an appointment for your monthly flush. Call your doctor following your Port-a-Cath de-access (needle removal) if you experience any of thefollowing: Fever (temperature over 100.1F) Chills Drainage from the insertion site (including bleeding) Redness, warmth, pain, swelling at the Port-a-Cath insertion site. * If possible please keep your Identification card for your Port-a-Cath with you at all times. Vascular Access Service Patient Guidelines for Self-Care following Port-a Cath De-access (Implanted Mediport device) Your Port-a-Cath was De-accessed (removal of the needle) on . Your Port- a-Cath has been identified as a: Single Lumen Dual Lumen Power Port NON Power Port Your Port-a-Cath has been flushed with Heparin. Your Port-a-Cath has been flushed with . (If allergy to Heparin) Your Port-a-Cath is due for the Monthly flush by . Your Port-a-Cath should be accessed and flushed with Heparin (to prevent blood clots from forming within the catheter) within 4 weeks of de-access (removal of the needle). Contact your Primary Care Physician if you need assistance with scheduling an appointment for your monthly flush. Call your doctor following your Port-a-Cath de-access (needle removal) if you experience any of thefollowing: Fever (temperature over 100.1F) Chills Drainage from the insertion site (including bleeding) Redness, warmth, pain, swelling at the Port-a-Cath insertion site. * If possible please keep your Identification card for your Port-a-Cath with you at all times. * Anusha Velasco RN - 09/17/2020 1:26 PM EDT CARE MANAGEMENT FINAL DISCHARGE NOTE Chart reviewed, care reviewed with primary team and at interdisciplinary rounds. Patient is medically ready for discharge home on 09/17/2020 Needs for Transition of Care Plan for discharge is: Home with no needs Transportation: family or friend will provide Functional status prior to admission: Assistive Person(Pt states gets dizzy needs SO to help him often) Home Environment: People in Home: spouse. Living Arrangements: mobile home. Lives with SO in a mobil home with 2 CELIA . They have two dogs. Current Functional Ability: Assistive Equipment Current DME: none Patient is insured through: Primary Insurance: MEDICAID [place] Payor: [place]ICAID [place] / Plan: MEDICA[place] PRIMARY CARE PLUS / Product Type: *No Product type* / Secondary Insurance: N/A Prescription Coverage: Yes Preferred Pharmacy: No Pharmacies Listed This plan was formulated with input from patient and team. All are in agreement with plan. Anusha Velasco RN Case [facility] of Care Management Pager: [phone] Ext: [phone] * Mitchell Vega MD - 09/17/2020 8:35 AM EDT [facility] Department of Thoracic Surgery Inpatient Progress Note Patient Name: Zeeshan Almodovar Patient : 1965 Patient Patient Location: 403/403 Attending Surgeon: DEBBIE SALGADO JOSEPH D ID: Zeeshan Almodovar is a 55 y.o. 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 who recently finished radiation therapy on 09/06. Developed RML and RLL pneumonia on CT chest on 09/11. He had an IR placed a pigtail catheter in his right chest at that time with a second drain placed on 09/16 with minimal output, growing GPC. 24 Hour Events / Subjective: - IR drain placed, growing GPCs, minimal output - WBC back down to 27 from 22 Vitals: Temp: [36.9 ??C (98.5 ??F)-37.6 ??C (99.7 ??F)] Heart Rate: [81-85] Resp: [16-20] BP: (111-145)/(48-72) SpO2: [91 %-95 %] Heart Rate from SpO2: [80 bpm-104 bpm] Wt & BMI By Encounter Date ED to Hosp-Admission (Current) from 09/11/2020 in [facility] Weight 56 kg (123 lb 8 oz) 1 09/15/2020 0546 BMI 20.39 1 09/12/2020 0251 Physical Exam: Gen: NAD, pleasant, laying in bed HEENT: EOMI, sclerae anicteric Neck: supple, trachea midline Card: RRR, no M/R/G appreciated Pulm: Right crackles, left CTA, no wheeze/ronchi/rales appreciated, non-labored breathing on room air Posterior Right CT to -20 sxn with no airleak appreciated, ss output. Anterior right CT to -20 suction no airleak minimal output Abd: soft, NT Ext: warm, dry, no edema Neuro: A&Ox3, nonfocal, conversant I/O: I/O last 3 completed shifts: In: 1512 [P.O.:440; I.V.:665; Other:10; IV Piggyback:397] Out: 606 [Urine:601; Other:5] Stool x2 Right CT 0 cc output (0 cc o/n) to -20 suction, no air leak, ss output R anterior CT 5 cc (0 cc), -20 suction, no airleak Labs: Last value Range last 24hrs Temperature Temp: 37.2 ??C (99 ??F) Temp: [36.9 ??C (98.5 ??F)-37.6 ??C (99.7 ??F)] Heart Rate Heart Rate: 81 Heart Rate: [81-85] Blood Pressure BP: 113/61 BP: (111-145)/(48-72) Respiratory Rate Resp: 18 Resp: [16-20] SpO2 SpO2: 93 % SpO2: [91 %-95 %] BMI Body mass index is 21.2 kg/m??. Intake/Output Summary (Last 24 hours) at 09/17/2020 0838 Last data filed at 09/17/2020 0400 Gross per 24 hour Intake 675 ml Output 330 ml Net 345 ml Recent Labs 09/17/20 0357 09/16/20 0346 09/15/20 0317 WBC 27.2* 21.9* 28.2* HGB 7.9* 8.1* 9.1* HCT 24.2* 25.1* 28.0* PLATELET 599* 583* 602* Recent Labs 09/17/20 0357 09/15/20 0317 NA 140 138 K 4.2 4.3 CL 106 105 CO2 28 25 BUN 13 23* CREATININE 0.52* 0.55* GLUCOSE 102 122 CALCIUM 8.2* 8.0* MAGNESIUM 0.92 -- PHOS 3.7 -- No results for input(s): PHART, PO2ART, ICJ7MSY, LACTATEART, BEART in the last 72 hours. Scheduled Meds: ??? [START ON 09/19/2020] Vancomycin Level - MAR Order Reminder NOT APPLICABLE Once ??? senna 17.2 mg Oral BID ??? docusate sodium 100 mg Oral BID ??? polyethylene glycoL (MIRALAX) oral powder 17 g Oral Daily ??? dextromethorphan 15 mg Oral Q6H DARNELL ??? vancomycin 1 g Intravenous Q8H ??? sodium chloride 0.9 % (flush) 5 mL Intravenous BID ??? enoxaparin 40 mg Subcutaneous Nightly ??? lidocaine 3 patch Transdermal Q24H And ??? lidocaine 1 patch Transdermal Q24H ??? melatonin 6 mg Oral Nightly ??? lamoTRIgine 100 mg Oral BID ??? DULoxetine DR 60 mg Oral Daily ??? famotidine 40 mg Oral Nightly ??? methylphenidate 20 mg Oral BID AC ??? nicotine 1 patch Transdermal Daily And ??? Patch Verification 1 patch Transdermal BID And ??? nicotine 1 patch Transdermal Daily ??? pantoprazole 40 mg Intravenous Daily ??? pregabalin 100 mg Oral TID ??? acetaminophen 975 mg Oral Q6H DARNELL ??? ipratropium-albuteroL 3 mL Nebulization Q6H ??? mometasone 220 mcg Inhalation Nightly ??? QUEtiapine 100 mg Oral Nightly ??? piperacillin-tazobactam 3.375 g Intravenous Q8H DARNELL Continuous Infusions: Diagnostics: CT Chest w Contrast, 09/15/2020 IMPRESSION 1. Decreased right pleural fluid collection, small residual with air and fluid posteromedially. 2. Right middle lobe abscess is unchanged. 3. Reactive right paratracheal and subcarinal lymph clary enlargement unchanged. CT IR pigtail Right anterior, 09/17/20 IMPRESSION Impression: Successful CT-guided drain placement in right anteroinferior parafissural collection. Micro: Body Fluid Cx 09/12/20: Many PMNs, no organisms seen on GS. NGTD Body fluid cx 09/16/20: GPCs Assessment: Zeeshan Almodovar is a 55 y.o. male with lymphoma who presented to OSH with CT findings suggestive of RML/RLL pneumonia and right effusion, now s/p CT guided IR pigtail placement x2. Received 4 cycles tpa/doranse with appropriate response thus far and cxr with decreased effusion. Has been on IV Vanc/zosyn for 7 days with persistent luekocytosis. Given that he primarily has an intraparencyhmal process with little output from his drain we discussed the risks and benefits of R VATS wash out, and decortication versus removing his pigtail catheters and continuing a long course of antibiotics. Will clamp right anterior tube, remove posterior tube, then obtain a CXR. If no accumulation of air or fluid will remove the second tube. Have reached to ID to help us determine appropriate antibiotic choice and duration for this lung abscess. Plan: Neuro: tylenol, toradol available for pain. Oxycodone, Duloxetine, Lamictal, Ritalin, Lyrica, Seroquel, melatonin, Nicoderm 21, lidocaine patches. IV ativan 0.5 as needed for Card: HDS, monitor vitals Pulm: Albuterol, IS/cough/deep breathe/OOB/ambulate. Continue right basilar CT to -20 sxn, monitor output. Will clamp right anterior tube, remove posterior tube, then obtain a CXR. If no accumulationof air or fluid will remove the second tube. FENGI: Regular diet. Zofran, PPI, Famotidine Renal/: Monitor UOP Heme: levonox ID: IV Zosyn, Vanc-culture NGTD, anticipate requiring 2-3 weeks abx course. Will engage ID regarding abx plans Endo: JOSE D PPx: scds; loveonx, Ambulate 4x a day. OOB. Dispo: full code, floor status All imaging reviewed and plans discussed with Thoracic Surgery attending, Dr. Jordan. Mitchell Vega MD 09/17/2020 Thoracic Surgery Service Pager [phone] Associated attestation - Marko Jordan MD - 09/17/2020 12:49 PM EDT I have seen the patient and reviewed the resident's above note and I agree with the details as written. I have personally reviewed the relevant imaging. The assessment and plan were formulated in discussion with me and I agree with them as documented. I discussed with Mr. Almodovar today his options regarding further management of his right middle lobe lung abscess with parapneumonic effusion. The effusion has been drained reasonably well following posterior pigtail placement and 6 cycles of tPA/Dornase. A new pigtail was placed in the more lateral/anterior collection yesterday with aspiration of purulent fluid. This is most likely a combination ofintraparenchymal abscess and evolving area pleural collection. We attempted to flush this area withsaline yesterday and he had immediate coughing, consistent with intraparenchymal placement of the tube, which has put out minimal slightly sanguinous output overnight. I have discussed with him options of a right VATS decortication, continued pigtail drainage or tube removal and antibiotics given low tube output for the last few days. After hearing these options, he wished to have the tube removed and go home on antibiotics and he wishes to be discharged today. Will follow up cultures and ID recs for antibiotic course and he will return to see me in 2 weeks for a post-hospital visit with a CT chest at that time. Marko Jordan MD 09/17/2020 * Jennifer Hare RN - 09/16/2020 4:00 PM EDT OUTCOME EVALUATION NOTE: OUTCOME SUMMARY: Zeeshan has not had a great day. He went to angio this morning and had a new pigtail placed, he is now getting TPA/ Dornase through that tube and pain continues to be an issue. He is currently having a small amount of hemoptysis and is very angry about all of it. VAS is attempting to access his port at this time in an effort to make blood draws and medications more tolerable. VSS, both chest tubes to -20 LCWS, no air leak noted, dressings c/d/i. Will continue to monitor. PLAN MOVING FORWARD: Pain management Monitor CT output Continue abx treatments Encourage activity INDIVIDUALIZED FALL PREVENTION INTERVENTIONS: Patient-specific fall risk factors per assessment: [current deficits]: Generalized weakness, pain Assistance [level of assistance required for transfers and ambulation]: SBA Supervision [direct monitoring required during toileting and ADLs]: Eyes on Surveillance [continuous indirect monitoring]: Call forde within reach, room near unit station, Masimo, bed alarm in use Patient-specific fall prevention interventions for sensory deficits provided, if applicable: no CPG GOAL OUTCOME EVALUATION: * Sonia Kirby RD - 09/16/2020 2:32 PM EDT Nutrition Progress Note Patient admitted to [facility] with pleuritic chest pain and SOB earlier this month amd was dxwith a RML and RLL pneumonia, noted to also have air cavity with small amount of fluid in the RL which may represent pulm abscess and a small right pleural effusion. Since then pt has clinically worsened, CT chest revealed what appears to be a 6cm right lung abscess and large right sided empyema causing significant volume loss of RLL. Transferred to [facility] for further management. Pt relevant medical history includes lymphocyte rich Hodgkin's lymphoma and COPD (no home O2), recent 2PPD smoker, recently finished radiation on 09/06. Zeeshan Almodovar is a 55 y.o. male Reason for intervention: Follow up Nutrition Recommendations: Continue with regular diet Encourage good PO intake of all meals and snacks Added chocolate and strawberry ensures TID with sn1 sn2 and dinner Monitor lytes and replete as indicated Please obtain weight every other day Active Orders Diet NPO diet (Give Meds) Frequency: Effective Midnight Number of Occurrences: Until Specified Regular diet Frequency: Effective Now Number of Occurrences: Until Specified Lab Results Component Value Date NA 138 09/15/2020 K 4.3 09/15/2020 CL 105 09/15/2020 CO2 25 09/15/2020 BUN 23 (H) 09/15/2020 CREATININE 0.55 (L) 09/15/2020 ESTGFR 116 09/15/2020 MAGNESIUM 0.89 09/11/2020 CALCIUM 8.0 (L) 09/15/2020 PHOS 5.0 (H) 09/11/2020 AST 57 (H) 09/11/2020 ALT 82 (H) 09/11/2020 ALKPHOS 387 (H) 09/11/2020 BILITOT 0.3 09/11/2020 CRP >300.0 (H) 09/11/2020 No results found for: POCGLU Skin Status: Shift Pressure Injury Prevention Occiput: No Injury Thoracic Spine: No Injury Sacral: No Injury Ischial - left: No Injury Ischial - right: No Injury Heel - left: No Injury Heel - right: No Injury Elbow - left: No Injury Elbow - right: No Injury Device Sites: NGT, O2 sat monitor, IV sites Other Sites: CT Relevant medications: ritalin, protonix, seroquel, others noted Last Bowel Movement: 09/15/20 Admit Weight: 56.8 kg Estimated body mass index is 21.2 kg/m?? as calculated from the following: Height as of this encounter: 162.6 cm (5' 4). Weight as of this encounter: 56 kg (123 lb 8 oz). [place] Body Weight: 59.2 kg (130lbs) Usual Body Weight: pt reports 145# Weight loss: pt reports 20 lb weight loss in last 6 months, shocked he was 118# today. 27 lbs lost per chart and pt report (18.6% - clinically significant) Wt Readings from Last 10 Encounters: 09/15/20 56 kg (123 lb 8 oz) Assessment: Estimated needs: (re-calculated) Calories: 1139-9937 (30 - 35 kcal/kg) - wt gain Protein: 71-89 grams (1.2-1.5 g/kg) Nutrition Focused Physical Exam (NFPE): Performed on 09/12 by CL. Subcutaneous fat loss at Orbital region: Moderate Upper arm region (triceps/biceps): Mild Thoracic and lumbar region (ribs, lower back and maxillary line): Not assessed Lean muscle loss to Lutheran region (temporalis muscle): Severe Clavicle bone region (pectoralis major): Severe Dorsal hand (interosseous muscle): Moderate Shoulder (deltoid): Severe Scapular bone region (latissimus dorsi, trapezius muscles): Not assessed Thigh region (quadriceps muscle): Not assessed Posterior calf region (gastrocnemius muscle): Moderate Fluid accumulation: Not assessed Nutrition intake and intake history/Interview: Visited pt for f/u. Over past 2 days, pt ordering >2600 kcals and >100 grams of protein - exceeding nutrition goals. Pt requested ensure be added TID. He says he is supposed to drink 3 per day. Pt declined offer for any other snack or ONS. Encouraged him to continue to do his best with meals. Pt denied any nutrition-related questions or concerns at this time Protein-calorie Malnutrition: <75% of estimated energy requirement for > or equal to 1 month,>10% weight loss in 6 months, Mild subcutaneous fat loss and Severe lean muscle loss is consistent with severe protein-calorie malnutrition in the setting of chronic illness (Timmy et al, JPEN J Parenteral Enteral Nutr. 2012 September; 36(3): 273-83) Nutrition to continue to follow up while inpatient Sonia Kirby RD Pager #:[phone] * Brianna Gama MD - 09/16/2020 1:37 PM EDT [facility] Department of Thoracic Surgery Inpatient Progress Note Patient Name: Zeeshan Almodovar Patient : 1965 Patient Patient Location: 403/403-A Attending Surgeon: DEBBIE SALGADO JOSEPH D ID: Zeeshan Almodovar is a 55 y.o. 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 who recently finished radiation therapy on 09/06. He was admitted at [facility] diagnosed with a RML and RLL pneumonia on CT chest. He was treated with ceftriaxone and azithromycin. Since that time he has clinically worsened and developed a increasing O2 requirement. He WBC has risen to 27. He had a CT chest on 09/10/20??demonstrating what appears to be a 6cm right lung abscess and large right-sided empyema causing significant volume loss of the RLL. He was trans ferred to [facility] and IR placed a pigtail catheter in his right chest. 24 Hour Events / Subjective: - No acute events overnight, vital signs stable - WBC back down to 22. Previous two WBC were 28, 22. Afebrile - On IV Vanc/Zosyn, culture no growth to date - CT chest from yesterday showing near resolution of right basilar fluid bur persistent right middle lobe abscess/ fluid collection - Denies dyspnea, chest pain this morning, on room air Vitals: Temp: [36.8 ??C (98.2 ??F)-37.4 ??C (99.3 ??F)] Heart Rate: [81-85] Resp: [16-20] BP: (108-145)/(48-72) SpO2: [88 %-95 %] Heart Rate from SpO2: [71 bpm-105 bpm] Wt & BMI By Encounter Date ED to Hosp-Admission (Current) from 09/11/2020 [facility] Weight 56 kg (123 lb 8 oz) 1 09/15/2020 0546 BMI 20.39 1 09/12/2020 0251 Physical Exam: Gen: NAD, pleasant, laying in bed HEENT: EOMI, sclerae anicteric Neck: supple, trachea midline Card: RRR, no M/R/G appreciated Pulm: Right crackles, left CTA, no wheeze/ronchi/rales appreciated, non-labored breathing on room air, Right CT to -20 sxn with no airleak appreciated, ss output. Abd: soft, NT Ext: warm, dry, no edema Neuro: A&Ox3, nonfocal, conversant I/O: I/O last 3 completed shifts: In: 2084 [P.O.:1040; I.V.:648; IV Piggyback:397] Out: 816 [Urine:676; Other:140] Stool x2 Right CT 50 cc output (0 cc o/n) to -20 suction, no air leak, ss output Labs: Recent Results (from the past 24 hour(s)) Hemogram Result Value Ref Range WBC 21.9 (H) 4.0 - 9.5 x10(3)/mcL RBC 2.56 (L) 4.58 - 5.54 x10(6)/mcL Hemoglobin 8.1 (L) 13.7 - 16.5 gm/dL Hematocrit 25.1 (L) 40.5 - 48.5 % MCV 98.0 (H) 82.9 - 93.1 fL MCH 31.6 27.5 - 32.1 pg MCHC 32.3 32.0 - 35.7 gm/dL Platelets 583 (H) 145 - 357 x10(3)/mcL RDWSD 50.4 (H) 36.0 - 45.0 fL RDWCV 14.3 (H) 11.4 - 13.8 % MPV 8.5 7.6 - 12.9 fL nRBC % Auto 0.0 % nRBC Abs Auto 0.000 0.000 - 0.000 x10(3)/mcL Differential, Automated Result Value Ref Range Neutrophils % 80.5 % Neutr Abs (ANC) 17.62 (H) 1 - 6 x10(3)/mcL Lymphocytes % 8.5 % Lymphocytes Abs 1.9 0.9 - 3.2 x10(3)/mcL Monocytes % 7.1 % Monocyte Abs 1.6 (H) 0.3 - 0.9 x10(3)/mcL Eosinophils % 2.5 % Eosinophils Abs 0.5 (H) 0.0 - 0.4 x10(3)/mcL Basophils % 0.3 % Basophils Abs 0.1 0.0 - 0.1 x10(3)/mcL Immature Gran % 1.10 % Eri Gran Abs 0.24 (H) 0.00 - 0.04 x10(3)/mcL Diagnostics: CT Chest w Contrast, 09/15/2020 IMPRESSION 1. Decreased right pleural fluid collection, small residual with air and fluid posteromedially. 2. Right middle lobe abscess is unchanged. 3. Reactive right paratracheal and subcarinal lymph clary enlargement unchanged. Micro: Body Fluid Cx 09/12/20: Many PMNs, no organisms seen on GS. NGTD Assessment: Zeeshan Almodovar is a 55 y.o. male with lymphoma who presented to OSH with CT findings suggestive of RML/RLL pneumonia and right effusion, now s/p CT guided IR pigtail placement. Received 4 cycles tpa/doranse with appropriate response thus far and cxr with decreased effusion. Has been on IV Vanc/zosyn, no growth on culture. CT chest from yesterday showing near resolution of right basilar fluid but persistent intraparenchymal abscess in right middle lobe and some new extra parenchymal anterolateral fluid collection in the fissure. Discussed with patient about options including 1) not draining that collection, which would risk sepsis, 2) draining with an IR guided pigtail, and 3) operative R VATS washout. Patient agreeable to trying another pigtail tube placement to the intrafissural fluid. Plan: Neuro: tylenol, toradol available for pain. Oxycodone, Duloxetine, Lamictal, Ritalin, Lyrica, Seroquel, melatonin, Nicoderm 21, lidocaine patches. IV ativan 0.5 as needed for Card: HDS, monitor vitals Pulm: Albuterol, IS/cough/deep breathe/OOB/ambulate. Continue right basilar CT to -20 sxn, monitor output. IR to place anterolateral CT, place on -20 sxn. TPA/dornase x2 cycles today, obtain CXR tomorrow AM. FENGI: Regular diet. NPO at midnight for possible OR. Zofran, PPI, Famotidine Renal/: Monitor UOP Heme: levonox ID: IV Zosyn, Vanc-culture NGTD, anticipate requiring 2-3 weeks abx course. Will engage ID regarding abx plans Endo: JOSE D PPx: scds; loveonx, Ambulate 4x a day. OOB. Dispo: full code, floor status All imaging reviewed and plans discussed with Thoracic Surgery attending, Dr. Jordan. Brianna Gama MD 09/16/2020 Thoracic Surgery Service Pager [phone] Associated attestation - Marko Jordan MD - 09/16/2020 2:34 PM EDT I have seen the patient and reviewed the resident's above note and I agree with the details as written. I have personally reviewed the relevant imaging. The assessment and plan were formulated in discussion with me and I agree with them as documented. Marko Jordan MD 09/16/2020 * Julia Andrade RN - 09/16/2020 1:01 PM EDT Pt had questions about his mediport and why it wasn't being used. Call placed to Uriel, Nursing Vacation Sales Advisor at [facility] for any information. He could find no documentation on why it wasn't beingused nor could he find a date on when it was last accessed. Primary RN notified via secure chat. * Julia Andrade RN - 09/16/2020 11:52 AM EDT [facility] Name: ZEESHAN ALMODOVAR Date of : 1965 AGE: 55 y.o. [address]: [address] [place] [id number] (home) Mobile: No relevant phone numbers on file. Referring Provider: Dale Sanchez REASON FOR VISIT: Order Questions Answers Laterality Right Is the patient on anticoagulant / anitplatelet therapy ? Other: see comments field Reason for exam and clinical history: Pt with lymphoma and RLL abscess and pleural effusion s/p pigtail drain and 4 cycles of tPA/dornase. F/u CT chest showing persistent RLL abscess and intrafissurefluid collection. Clinical information / hill questions: Place pigtail drain to the extraparenchymal anterolateral fluid collection Plan Planned procedure: CT guided RML drainage catheter (09/16/20844) Labs to be performed day of procedure: No labs (09/16/20844) Sedation: Fentanyl only (09/16/20844) Prophylactic antibiotic : None (09/16/20844) Contrast: No contrast (09/16/20844) Additional medications for procedure: Lidocaine (09/16/2045) Planned access site: Right lateral thorax (09/16/20844) Consent: Pending (09/16/20844) Medications to discontinue (and days held): None (09/16/20844) Cytopathology presence needed: No (09/16/20844) Allergies Allergen Reactions ??? Wellbutrin [Bupropion] Pertinent PSH: History reviewed. No pertinent surgical history. Date/Procedure Meds given/comments 09/12/20 Right Chest tube placement by General Surgery [place] only 09/16/[address] guided Chest tube placement. Pt had c/o jaw and throat discomfort, hemoptysis.tuberemoved and replaced in same spot. Thoracic Surgery paged while PT on CT table. VSS. 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 A letter describing our affiliations was reviewed with them and they were educated about their right to choose where referrals are placed. Provided patient with CMS Star Quality Rating for Home care Patient requests referral to : [facility] [employer]. PHONE: [phone] FAX: [phone] Expected date of discharge: 09/18/2020 Referral routed to the Job Setter for matching with agency/vendor and to provide any required information. * Brianna Gama MD - 09/15/2020 9:28 AM EDT [facility] Department of Thoracic Surgery Inpatient Progress Note Patient Name: Zeeshan Almodovar Patient : 1965 Patient Patient Location: 403/[facility]-A Attending Surgeon: DEBBIE SALGADO JOSEPH D ID: Zeeshan Almodovar is a 55 y.o. 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 who recently finished radiation therapy on 09/06. He was admitted at [facility] diagnosed with a RML and RLL pneumonia on CT chest. He was treated with ceftriaxone and azithromycin. Since that time he has clinically worsened and developed a increasing O2 requirement. He WBC has risen to 27. He had a CT chest on 09/10/20??demonstrating what appears to be a 6cm right lung abscess and large right-sided empyema causing significant volume loss of the RLL. He was trans ferred to [facility] and IR placed a pigtail catheter in his right chest. 24 Hour Events / Subjective: - tPA/ dornase stopped yesterday after 4 cycles due to sanguinous output and concern for possible chest wall hematoma - WBC 28 (22), afebrile - On IV Vanc/Zosyn, culture no growth to date - CXR showing unchanged small right pleural effusion and improved right lower lobe airspace opacities. - Denies dyspnea, chest pain this morning, on room air - Frustrated about having to stay in the hospital, provided positive reinforcement Vitals: Temp: [36.6 ??C (97.9 ??F)-37.1 ??C (98.8 ??F)] Heart Rate: -- Resp: [18-20] BP: (101-118)/(57-66) SpO2: [91 %-95 %] Heart Rate from SpO2: [81 bpm-110 bpm] Wt & BMI By Encounter Date ED to Hosp-Admission (Current) from 09/11/2020 in 4 [facility] Weight 56 kg (123 lb 8 oz) 1 09/15/2020 0546 BMI 20.39 1 09/12/2020 0251 Physical Exam: Gen: NAD, pleasant, laying in bed HEENT: EOMI, sclerae anicteric Neck: supple, trachea midline Card: RRR, no M/R/G appreciated Pulm: Right crackles, left CTA, no wheeze/ronchi/rales appreciated, non-labored breathing on room air, Right CT to -20 sxn with no airleak appreciated, ss output. Subcutaneous space around the chest tube site without skin changes, soft, no concern for hematoma. Abd: soft, NT Ext: warm, dry, no edema Neuro: A&Ox3, nonfocal, conversant I/O: I/O last 3 completed shifts: In: 2002.5 [P.O.:951; I.V.:385.7; Other:210; IV Piggyback:455.8] Out: 1195 [Urine:400; Other:795] Stool x2 Right CT 230 cc output (90 cc o/n) to -20 suction, no air leak, ss output Labs: Recent Results (from the past 24 hour(s)) Vancomycin, trough Result Value Ref Range Vanc Trough 17.3 mg/L Basic Metabolic Panel (non-fasting) Result Value Ref Range Glucose Lvl 122 65 - 199 mg/dL BUN 23 (H) 10 - 20 mg/dL Creatinine 0.55 (L) 0.80 - 1.50 mg/dL Sodium 138 135 - 145 mmol/L Potassium 4.3 3.5 - 5.0 mmol/L Chloride 105 98 - 107 mmol/L CO2 25 22 - 31 mmol/L Anion Gap 8 5 - 15 mmol/L Calcium 8.0 (L) 8.5 - 10.5 mg/dL Estimated GFR 116 >=60 mL/min/1.73 m?? Hemogram Result Value Ref Range WBC 28.2 (H) 4.0 - 9.5 x10(3)/mcL RBC 2.92 (L) 4.58 - 5.54 x10(6)/mcL Hemoglobin 9.1 (L) 13.7 - 16.5 gm/dL Hematocrit 28.0 (L) 40.5 - 48.5 % MCV 95.9 (H) 82.9 - 93.1 fL MCH 31.2 27.5 - 32.1 pg MCHC 32.5 32.0 - 35.7 gm/dL Platelets 602 (H) 145 - 357 x10(3)/mcL RDWSD 48.6 (H) 36.0 - 45.0 fL RDWCV 13.9 (H) 11.4 - 13.8 % MPV 8.5 7.6 - 12.9 fL nRBC % Auto 0.0 % nRBC Abs Auto 0.000 0.000 - 0.000 x10(3)/mcL Differential, Automated Result Value Ref Range Neutrophils % 86.2 % Neutr Abs (ANC) 24.33 (H) 1 - 6 x10(3)/mcL Lymphocytes % 5.7 % Lymphocytes Abs 1.6 0.9 - 3.2 x10(3)/mcL Monocytes % 5.5 % Monocyte Abs 1.6 (H) 0.3 - 0.9 x10(3)/mcL Eosinophils % 1.1 % Eosinophils Abs 0.3 0.0 - 0.4 x10(3)/mcL Basophils % 0.2 % Basophils Abs 0.0 0.0 - 0.1 x10(3)/mcL Immature Gran % 1.30 % Eri Gran Abs 0.37 (H) 0.00 - 0.04 x10(3)/mcL Scan, Peripheral Blood Result Value Ref Range Plat Estimate Increased RBC Morphology Abnormal Hypochromia Slight Target Cells 1-5 /HPF Diagnostics: CXR PA/ Lateral, 09/15/2020 IMPRESSION * Unchanged small right pleural effusion. * Improved right lower lobe airspace opacities. * Persistent partial opacification of the right middle lobe. Micro: Body Fluid Cx 09/12/20: Many PMNs, no organisms seen on GS. NGTD Assessment: Zeeshan Almodovar is a 55 y.o. male with lymphoma who presented to OSH with CT findings suggestive of RML/RLL pneumonia and right effusion, now s/p CT guided IR pigtail placement. Received 4 cycles tpa/doranse with appropriate response thus far and cxr with decreased effusion. Micro with NGTD. Leukocytosis increasing today while on IV Vanc, Zosyn, concerning for undrained infectious fluid pocket vs atypical organisms. Will obtain CT chest today and engage ID in this patient with immunosuppression. Plan: Neuro: tylenol, toradol available for pain. Oxycodone, Duloxetine, Lamictal, Ritalin, Lyrica, Seroquel, melatonin, Nicoderm 21, lidocaine patches. IV ativan 0.5 as needed for Card: HDS, monitor vitals Pulm: Albuterol, IS/cough/deep breathe/OOB/ambulate. Continue Right CT to -20 sxn, monitor output. S/p tPA/ dornase [address] Chest with IV contrast today. FENGI: Regular diet. RBOs, Zofran, PPI, Famotidine Renal/: Monitor UOP Heme: levonox ID: IV Zosyn, Vanc-culture NGTD, anticipate requiring 2-3 weeks abx course. Will engage ID regarding abx plans after CT chest. Endo: JOSE D PPx: scds; loveonx, Ambulate 4x a day. OOB. Dispo: full code, floor status All imaging reviewed and plans discussed with Thoracic Surgery attending, Dr. Hernandez. Brianna Gama MD 09/15/2020 Thoracic Surgery Service Pager [phone] Associated attestation - Aniket Hernandez MD - 10/01/2020 5:51 PM EDT I have seen the patient in person and reviewed the resident's above history and I agree with the details as written. The assessment and plan were formulated in discussion with me and I agree with them as documented. Plan: Seen by me. Will continue to hold TPA and dornase. Considering repeat CT scan given increasing WBC. Will continue to monitor. Aniket Hernandez MD Thoracic Surgery * Hermelinda Mcintyre PA - 09/14/2020 5:58 AM EDT [facility] Department of Thoracic Surgery Inpatient Progress Note Patient Name: Zeeshan Almodovar Patient : 1965 Patient Patient Location: -A Attending Surgeon: DEBBIE SALGADO JOSEPH D ID: Zeeshan Almodovar is a 55 y.o. 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 who recently finished radiation therapy on 09/06. He was admitted at [facility] diagnosed with a RML and RLL pneumonia on CT chest. He was treated with ceftriaxone and azithromycin. Since that time he has clinically worsened and developed a increasing O2 requirement. He WBC has risen to 27. He had a CT chest on 09/10/20??demonstrating what appears to be a 6cm right lung abscess and large right-sided empyema causing significant volume loss of the RLL. He was trans ferred to [facility] and IR placed a pigtail catheter in his right chest. 24 Hour Events / Subjective: - received cycles 3 and 4 of tpa/dornase with good response - wbc down trending to 21.8 from 23 - pain control improved o/n however this morning c/o significant pain at CT insertion site Vitals: Temp: [36.4 ??C (97.5 ??F)-37 ??C (98.6 ??F)] Heart Rate: -- Resp: [17-20] BP: (102-126)/(55-68) SpO2: [86 %-93 %] Heart Rate from SpO2: [86 bpm-109 bpm] Wt & BMI By Encounter Date ED to Hosp-Admission (Current) from 09/11/2020 in 1 [facility] Weight 53.9 kg (118 lb 12.8 oz) 1 09/12/2020 0251 BMI 20.39 1 09/12/2020 0251 Physical Exam: Gen: NAD, pleasant, laying in bed HEENT: EOMI, sclerae anicteric Neck: supple, trachea midline Card: RRR, no M/R/G appreciated Pulm: Right crackles, Left CTA, no wheeze/ronchi/rales appreciated, non-labored breathing on 2L NC (satting 95%), Right CT to -20 sxn with no airleak appreciated, S>SS output. Right lateral chest with 3x2cm area of edema just inferior to CT site- non-TTP, soft, no overlying skin changes Abd: soft, NT Ext: warm, dry, no edema Neuro: A&Ox3, nonfocal, conversant I/O: I/O last 3 completed shifts: In: 2892.8 [P.O.:1908; I.V.:5; IV Piggyback:979.8] Out: 2275 [Urine:400; Other:1875] R.CT: 935/565cc o/n from 1440/940cc, no air leak Labs: Recent Results (from the past 24 hour(s)) Vancomycin, trough Result Value Ref Range Vanc Trough 13.3 mg/L Basic Metabolic Panel (non-fasting) Result Value Ref Range Glucose Lvl 86 65 - 199 mg/dL BUN 19 10 - 20 mg/dL Creatinine 0.56 (L) 0.80 - 1.50 mg/dL Sodium 138 135 - 145 mmol/L Potassium 4.5 3.5 - 5.0 mmol/L Chloride 106 98 - 107 mmol/L CO2 27 22 - 31 mmol/L Anion Gap 5 5 - 15 mmol/L Calcium 7.9 (L) 8.5 - 10.5 mg/dL Estimated GFR 115 >=60 mL/min/1.73 m?? Hemogram Result Value Ref Range WBC 21.8 (H) 4.0 - 9.5 x10(3)/mcL RBC 3.09 (L) 4.58 - 5.54 x10(6)/mcL Hemoglobin 9.6 (L) 13.7 - 16.5 gm/dL Hematocrit 30.6 (L) 40.5 - 48.5 % MCV 99.0 (H) 82.9 - 93.1 fL MCH 31.1 27.5 - 32.1 pg MCHC 31.4 (L) 32.0 - 35.7 gm/dL Platelets 652 (H) 145 - 357 x10(3)/mcL RDWSD 50.3 (H) 36.0 - 45.0 fL RDWCV 13.9 (H) 11.4 - 13.8 % MPV 8.7 7.6 - 12.9 fL nRBC % Auto 0.0 % nRBC Abs Auto 0.000 0.000 - 0.000 x10(3)/mcL Differential, Automated Result Value Ref Range Neutrophils % 78.9 % Neutr Abs (ANC) 17.25 (H) 1 - 6 x10(3)/mcL Lymphocytes % 7.9 % Lymphocytes Abs 1.7 0.9 - 3.2 x10(3)/mcL Monocytes % 8.7 % Monocyte Abs 1.9 (H) 0.3 - 0.9 x10(3)/mcL Eosinophils % 2.3 % Eosinophils Abs 0.5 (H) 0.0 - 0.4 x10(3)/mcL Basophils % 0.3 % Basophils Abs 0.1 0.0 - 0.1 x10(3)/mcL Immature Gran % 1.90 % Eri Gran Abs 0.41 (H) 0.00 - 0.04 x10(3)/mcL Diagnostics: CXR 09/13/20 IMPRESSION * Interval repositioning of the right inferior pigtail pleural drain. * Decreased right pleural fluid. * Improved aeration of the right lower lung with residual right lower lobe patchy airspace opacities. * Persistent near complete opacification of the right middle lobe. * Mild central vascular congestion. * Interval development of emphysema tracking along the right chest wall in the right lower neck. CXR 09/12/20 IMPRESSION * Interval placement of a right inferior approach pleural pigtail catheter * Decreased opacification of the right lower lung field, likely a combination of decreased pleural fluid and improved aeration. * No definite pneumothorax is evident. Micro: Body Fluid Cx 09/12/20: Many PMNs, no organisms seen on GS. NGTD Assessment: Zeeshan Almodovar is a 55 y.o. male who presented to OSH with CT findings suggestive of RML/RLL pneumonia and right effusion, now s/p CT guided IR pigtail placement. Received 4 cycles tpa/doranse with appropriate response thus far and cxr with decreased effusion. Micro with NGTD. Remains afebrile withdown trending leukocytosis. CT output more sang than SS this morning with area of edema inferior toCT insertion site, ? Small chest wall hematoma. Plan: Neuro: tylenol, toradol available for pain. Oxycodone, Duloxetine, Lamictal, Ritalin, Lyrica, Seroquel, melatonin, Nicoderm 21, lidocaine patches Card: HDS, monitor vitals Pulm: Albuterol, IS/cough/deep breathe/OOB/ambulate. Continue Right CT to -20 sxn, monitor output. discontinue Tpa/dornase given S>SS output, CX to eval effusion, tube positioning and ?hematoma FENGI: Regular diet. RBOs, Zofran, PPI, Famotidine Renal/: Monitor UOP Heme: levonox ID: Zosyn, Vanc- f/u culture data, will ultimately require 2-3 weeks abx course Endo: JOSE D PPx: scds; loveonx, Ambulate 4x a day. OOB. Dispo: full code, floor status All imaging reviewed and plans discussed with Thoracic Surgery attending, Dr. Hernandez. MADEALINE Mcbride 09/14/2020 Thoracic Surgery Service Pager [phone] Associated attestation - Aniket Hernandez MD - 10/01/2020 5:50 PM EDT I have seen the patient in person and reviewed the resident's above history and I agree with the details as written. The assessment and plan were formulated in discussion with me and I agree with them as documented. Plan: Will hold on more TPA and dornase at this time. Will obtain CXR to monitor effusion. Aniket Hernandez MD Thoracic Surgery * Sites, Jonah Scales MD - 09/13/2020 11:58 AM EDT Acute Pain Service - Daily Visit Note Patient Name: Zeeshan Almodovar Problem List: Active Hospital Problems Diagnosis ??? Severe protein-calorie malnutrition ??? Empyema Resolved Hospital Problems No resolved problems to display. There are no active non-hospital problems to display for this patient. Interval History: Patient reports that pain was rough last night. This morning, pain is adequately controlled, much improved though still painful. He points toward along the lateral ribs in the mid axillary (where thepigtail dressing is) when asked about the location of most of his pain. He describes the pain as sharp, constant, worse with movement. We went through his pain regimen with him during our visit. Review of Systems: Sedation Level: sleeping, easily arousable Pruritis/Skin: none GI/Bowels/Nausea: none Vital Signs: Last Set of Vitals BP 120/66 (BP Location (NBP): Right arm, Patient Position: Lying) Pulse 85 Temp 36.8 ??C (98.2 ??F) (Oral) Resp 20 Ht 162.6 cm (5' 4) Wt 53.9 kg (118 lb 12.8 oz) SpO2 90% BMI 20.39 kg/m?? Physical Exam: Affect: appropriate Pain Behaviors: none Sleeping, easily arousable, able to move from side to side and sitting up in bed with no acute distress from pain Analgesics: Acetaminophen 975mg q6hr Flexeril 10mg q8hr PRN Dilaudid 2-4mg q4hr PRN Toradol 15mg q6hr scheduled Lidoderm x 3 Assessment: Zeeshan Almodovar??is a 55 y.o.??male POD 2 s/p CT guided IR pigtail placement in Right chest for empyema management, patient is stable with improved pain control. Patient appears to be quite comfortable on exam, able to sleep and answer questions with no distraction by pain. Based on his physical exam and procedure, his acute pain may be resulting from the pigtail irritating intercostalnerves along the ribs. If this is the case, his pain will not resolve until his pigtail is removed.While the pigtail remains in, patient can continue to benefit from a short course of opioid medication as well as nonopioid adjuncts. Plan: Continue current regimen while pigtail remains in May add dextromethorphan 15mg q6hr scheduled for additional pain control Depends on patient's hospital course/discharge planning, he may be discharged on a short course of opioid (2-3 days, current dosing) per primary team's discretion with follow up Plan was discussed with patient, nurse, and primary team. Recommendations as above. APS will sign off. Please page if further consultation required. Alondra Jung MD 09/13/2020 Acute Pain Service Pager: [phone] APS Attending ([facility]) Patient seen on daily rounds, I agree with the above * Anusha Velasco RN - 09/13/2020 9:55 AM EDT OFFICE OF CARE MANAGEMENT PROGRESS NOTE LOS: Hospital Day 2 days Chart reviewed, care reviewed with primary team and at interdisciplinary rounds. Patient continues to meet inpatient level of care related to: Getting TPN [place] Functional status prior to admission: Assistive Person(Pt states gets dizzy needs SO to help him often) Home Environment: People in Home: spouse. Living Arrangements: mobile home. Lives with SO in a mobil home with 2 CELIA . They have two dogs. Current Functional Ability: Assistive Equipment Current DME: none DME Needed at DC: walker, rolling Patient is insured through: Primary Insurance: [place] Payor: [place] / Plan: [place] PRIMARY CARE PLUS / Product Type: *No Product type* / Secondary Insurance: N/A Prescription Coverage: Yes Preferred Pharmacy: No Pharmacies Listed Plan for discharge is: none Agency Referrals: None anticipated ( if needed [facility] is choice) Transportation: family or friend will provide Barriers to discharge: None anticipated Plan going forward: CM will continue to follow and assist with discharge planning and coordination of care as indicated. Anticipated Date of Discharge: 09/16/20 Anusha Velasco RN Case [place] of Care Management Pager: [phone] Ext: [phone] * Maryellen Chandler PA - 09/13/2020 7:24 AM EDT [facility] Department of Thoracic Surgery Inpatient Progress Note Patient Name: Zeeshan Almodovar Patient : 1965 Patient Patient Location: Attending Surgeon: DEBBIE SALGADO JOSEPH D ID: Zeeshan Almodovar is a 55 y.o. 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 who recently finished radiation therapy on 09/06. He was admitted at [facility] diagnosed with a RML and RLL pneumonia on CT chest. He was treated with ceftriaxone and azithromycin. Since that time he has clinically worsened and developed a increasing O2 requirement. He WBC has risen to 27. He had a CT chest on 09/10/20??demonstrating what appears to be a 6cm right lung abscess and large right-sided empyema causing significant volume loss of the RLL. He was trans ferred to [facility] and IR placed a pigtail catheter in his right chest. 24 Hour Events / Subjective: - received 2 cycles tpa/dornase with good response - weaned to RA from 2L NC - wbc down trending to 23 from 27.6, continues on vanc/zosyn - pleural fluid with NGTD - He reports that he has been passing some gas but no BM since admission. - States that his breathing has improved since admission. - Denies f/c/n/v/dyspnea Vitals: Temp: [36.2 ??C (97.2 ??F)-36.8 ??C (98.2 ??F)] Heart Rate: -- Resp: [18-22] BP: (112-121)/(57-88) SpO2: [93 %-94 %] Heart Rate from SpO2: [78 bpm-120 bpm] Wt & BMI By Encounter Date ED to Hosp-Admission (Current) from 09/11/2020 in [facility] Weight 53.9 kg (118 lb 12.8 oz) 1 09/12/2020250 BMI 20.39 1 09/12/2020250 Physical Exam: Gen: NAD, pleasant, laying in bed HEENT: EOMI, sclerae anicteric Neck: supple, trachea midline Card: RRR, no M/R/G appreciated Pulm: Right crackles, Left CTA, no wheeze/ronchi/rales appreciated, non-labored breathing on RA, Right CT to -20 sxn with no airleak appreciated, serosanguineous output. Chest tube incision c/d/i Abd: soft, NT Ext: warm, dry, no edema Neuro: A&Ox3, nonfocal, conversant I/O: I/O last 3 completed shifts: In: 2319 [P.O.:221; I.V.:1574; IV Piggyback:524] Out: 2180 [Urine:200; Other:1980] R.CT: 1440/940cc o/n serosanguineous output from 540 cc, no air leak Labs: Recent Results (from the past 24 hour(s)) Basic Metabolic Panel (non-fasting) Result Value Ref Range Glucose Lvl 139 65 - 199 mg/dL BUN 20 10 - 20 mg/dL Creatinine 0.59 (L) 0.80 - 1.50 mg/dL Sodium 139 135 - 145 mmol/L Potassium 4.1 3.5 - 5.0 mmol/L Chloride 106 98 - 107 mmol/L CO2 25 22 - 31 mmol/L Anion Gap 8 5 - 15 mmol/L Calcium 8.4 (L) 8.5 - 10.5 mg/dL Estimated GFR 112 >=60 mL/min/1.73 m?? Hemogram Result Value Ref Range WBC 23.0 (H) 4.0 - 9.5 x10(3)/mcL RBC 3.34 (L) 4.58 - 5.54 x10(6)/mcL Hemoglobin 10.5 (L) 13.7 - 16.5 gm/dL Hematocrit 33.4 (L) 40.5 - 48.5 % MCV 100.0 (H) 82.9 - 93.1 fL MCH 31.4 27.5 - 32.1 pg MCHC 31.4 (L) 32.0 - 35.7 gm/dL Platelets 674 (H) 145 - 357 x10(3)/mcL RDWSD 51.2 (H) 36.0 - 45.0 fL RDWCV 13.7 11.4 - 13.8 % MPV 8.7 7.6 - 12.9 fL nRBC % Auto 0.0 % nRBC Abs Auto 0.000 0.000 - 0.000 x10(3)/mcL Differential, Automated Result Value Ref Range Neutrophils % 80.7 % Neutr Abs (ANC) 18.53 (H) 1 - 6 x10(3)/mcL Lymphocytes % 6.7 % Lymphocytes Abs 1.5 0.9 - 3.2 x10(3)/mcL Monocytes % 8.4 % Monocyte Abs 1.9 (H) 0.3 - 0.9 x10(3)/mcL Eosinophils % 1.9 % Eosinophils Abs 0.4 0.0 - 0.4 x10(3)/mcL Basophils % 0.3 % Basophils Abs 0.1 0.0 - 0.1 x10(3)/mcL Immature Gran % 2.00 % Eri Gran Abs 0.45 (H) 0.00 - 0.04 x10(3)/mcL Scan, Peripheral Blood Result Value Ref Range Plat Estimate Increased RBC Morphology Abnormal Macrocytes 1-5 /HPF Diagnostics: CXR 09/13/20 IMPRESSION * Interval repositioning of the right inferior pigtail pleural drain. * Decreased right pleural fluid. * Improved aeration of the right lower lung with residual right lower lobe patchy airspace opacities. * Persistent near complete opacification of the right middle lobe. * Mild central vascular congestion. * Interval development of emphysema tracking along the right chest wall in the right lower neck. CXR 09/12/20 IMPRESSION * Interval placement of a right inferior approach pleural pigtail catheter * Decreased opacification of the right lower lung field, likely a combination of decreased pleural fluid and improved aeration. * No definite pneumothorax is evident. Micro: Body Fluid Cx 09/12/20: Many PMNs, no organisms seen on GS. NGTD Assessment: Zeeshan Almodovar is a 55 y.o. male who presented to OSH with CT findings suggestive of RML/RLL pneumonia and right effusion, now s/p CT guided IR pigtail placement. Received 2 cycles tpa/doranse with appropriate response and cxr with decreased effusion. Micro with NGTD. Remains afebrile with down trending leukocytosis. Pain control was difficult with Mr. Almodovar, APS was consulted and recs appreciated. He will benefit from ambulation and additional bowel medications to stimulate a BM. Neuro: tylenol, toradol available for pain. Oxycodone, Duloxetine, Lamictal, Ritalin, Lyrica, Seroquel, melatonin, Nicoderm 21 Card: HDS, monitor vitals Pulm: Albuterol, IS/cough/deep breathe/OOB/ambulate. Continue Right CT to -20 sxn, monitor output. Continue Tpa/dornase. On 2-5 schedule; cycle 3 today at 1400. FENGI: Regular diet. RBOs, Zofran, PPI, Famotidine Renal/: Monitor UOP Heme: levonox ID: Zosyn, Vanc- f/u culture data, will ultimately require 2-3 weeks abx course Endo: JOSE D PPx: scds; loveonx, Ambulate 4x a day. OOB. Dispo: full code, floor status All imaging reviewed and plans discussed with Thoracic Surgery attending, Dr. Jordan. MADELAINE Lowry 09/13/2020 Thoracic Surgery Service Pager [phone] Associated attestation - Marko Jordan MD - 09/13/2020 10:48 AM EDT I have seen the patient and reviewed the PA resident's above note and I agree with the details as written. I have personally reviewed the relevant imaging. The assessment and plan were formulated in discussion with me and I agree with them as documented. Clinically improving and CXRs are clearing with the first 2 cycles of tPA/Dornase. Continue with cycles. Add bowel regimen today as well. Marko Joradn MD 09/13/2020 * Kallie Huang, RD - 09/12/2020 1:19 PM EDT Nutrition Consult Note Patient admitted to [facility] with pleuritic chest pain and SOB earlier this month amd was dxwith a RML and RLL pneumonia, noted to also have air cavity with small amount of fluid in the RL which may represent pulm abscess and a small right pleural effusion. Since then pt has clinically worsened, CT chest revealed what appears to be a 6cm right lung abscess and large right sided empyema causing significant volume loss of RLL. Transferred to [facility] for further management. Pt relevant medical history includes lymphocyte rich Hodgkin's lymphoma and COPD (no home O2), recent 2PPD smoker, recently finished radiation on 09/06. Zeeshan Almodovar is a 55 y.o. male Reason for intervention: cx: MST Nutrition Recommendations: Continue with regular diet Encourage PO intake of all meals and snacks Recommend Ensure strawberry TID with meals Monitor lytes and replete as indicated Please obtain weight every other day Active Orders Diet Regular diet Frequency: Effective Now Number of Occurrences: Until Specified Lab Results Component Value Date NA 138 09/11/2020 K 4.6 09/11/2020 CL 100 09/11/2020 CO2 29 09/11/2020 BUN 14 09/11/2020 CREATININE 0.49 (L) 09/11/2020 ESTGFR 121 09/11/2020 MAGNESIUM 0.89 09/11/2020 CALCIUM 8.8 09/11/2020 PHOS 5.0 (H) 09/11/2020 AST 57 (H) 09/11/2020 ALT 82 (H) 09/11/2020 ALKPHOS 387 (H) 09/11/2020 BILITOT 0.3 09/11/2020 CRP >300.0 (H) 09/11/2020 No results found for: POCGLU Skin Status: Shift Pressure Injury Prevention Occiput: No Injury Thoracic Spine: No Injury Sacral: No Injury Ischial - left: No Injury Ischial - right: No Injury Heel - left: No Injury Heel - right: No Injury Elbow - left: No Injury Elbow - right: No Injury Device Sites: O2 sat monitor, oxygen tubing, parisi Other Sites: chest tube Relevant medications: ritalin, protonix, seroquel, 100mL NS, others noted Last Bowel Movement: 09/11/20(per pt) Admit Weight: 56.8 kg Estimated body mass index is 20.39 kg/m?? as calculated from the following: Height as of this encounter: 162.6 cm (5' 4). Weight as of this encounter: 53.9 kg (118 lb 12.8 oz). [place] Body Weight: 59.2 kg (130lbs) Usual Body Weight: pt reports 145# Weight loss: pt reports 20 lb weight loss in last 6 months, shocked he was 118# today. 27 lbs lost per chart and pt report (18.6% - clinically significant) Wt Readings from Last 10 Encounters: 09/12/20 53.9 kg (118 lb 12.8 oz) Assessment: Estimated needs: Calories: 8441-3735 (25-30 kcal/kg IBW) Protein: 71-89 grams (1.2-1.5 g/kg) Nutrition Focused Physical Exam (NFPE): Performed on 09/12 by CL. Subcutaneous fat loss at Orbital region: Moderate Upper arm region (triceps/biceps): Mild Thoracic and lumbar region (ribs, lower back and maxillary line): Not assessed Lean muscle loss to Lutheran region (temporalis muscle): Severe Clavicle bone region (pectoralis major): Severe Dorsal hand (interosseous muscle): Moderate Shoulder (deltoid): Severe Scapular bone region (latissimus dorsi, trapezius muscles): Not assessed Thigh region (quadriceps muscle): Not assessed Posterior calf region (gastrocnemius muscle): Moderate Fluid accumulation: Not assessed Nutrition intake and intake history/Interview: Pt reports that he's starting to eat normal again this adm (at [facility] and [facility]). Reports OFFICER CAPTAIN he was eating 1 meal/d because of having no appetite - unsure of how long. Reports weight loss of 20 lbs, I couldn't believe I was only 188 so I definitely have lost weight. Pt reports weight loss occurred over 6 months. Offered Ensure enlive and pt agreeable, I'm supposed to have three of those a day, prefers strawberry. Pt reports he walks a lot for exercise. Flatwork Ironer encouraged him to eat as much of each meal as he can, and use Ensure to supplement meals or save as snacks in between . Pt agreeable. Protein-calorie Malnutrition: <75% of estimated energy requirement for > or equal to 1 month,>10% weight loss in 6 months, Mild subcutaneous fat loss and Severe lean muscle loss is consistent with severe protein-calorie malnutrition in the setting of chronic illness (Timmy et al, JPEN J Parenteral Enteral Nutr. 2011; 36(3): 273-83) Nutrition to continue to follow up while inpatient Kallie Huang RD Pager #:[phone] * Maryellen Chandler PA - 09/12/2020 11:00 AM EDT [facility] Department of Thoracic Surgery Inpatient Progress Note Patient Name: Zeeshan Almodovar Patient : 1965 Patient Patient Location: -A Attending Surgeon: DEBBIE SALGADO JOSEPH D ID: Zeeshan Almodovar is a 55 y.o. 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 who recently finished radiation therapy on 09/06. He was admitted at [facility] diagnosed with a RML and RLL pneumonia on CT chest. He was treated with ceftriaxone and azithromycin. Since that time he has clinically worsened and developed a increasing O2 requirement. He WBC has risen to 27. He had a CT chest on 09/10/20??demonstrating what appears to be a 6cm right lung abscess and large right-sided empyema causing significant volume loss of the RLL. He was trans ferred to [facility] and IR placed a pigtail catheter in his right chest. 24 Hour Events / Subjective: - o/n IR pigtail placed on the right side. - afebrile, VSS - He reports that his home medication folder was misplaced and asking for his home pain regiment. - denies f/n/v/c/cp/sob Vitals: Temp: [36.7 ??C (98.1 ??F)-37 ??C (98.6 ??F)] Heart Rate: [78-104] Resp: [12-29] BP: (96-123)/(51-81) SpO2: [91 %-97 %] Heart Rate from SpO2: [43 bpm-100 bpm] Wt & BMI By Encounter Date ED to Hosp-Admission (Current) from 09/11/2020 in [facility] Weight 53.9 kg (118 lb 12.8 oz) 1 09/12/2020250 BMI 20.39 1 09/12/2020250 Physical Exam: Gen: NAD, pleasant, laying in bed HEENT: EOMI, sclerae anicteric Neck: supple, trachea midline Card: RRR, no M/R/G appreciated Pulm: CTAB, no wheeze/ronchi/rales appreciated, non-labored breathing on 2L NC, Right CT to -20 sxnwith no airleak appreciated Abd: soft, NT, BS+ Ext: warm, dry, no edema Neuro: A&Ox3, CN II-XII grossly intact, nonfocal, conversant I/O: I/O last 3 completed shifts: In: 550 [I.V.:550] Out: 540 [Other:540] R.CT: 540 cc, no air leak Labs: Recent Results (from the past 24 hour(s)) Hemogram Result Value Ref Range WBC 27.6 (H) 4.0 - 9.5 x10(3)/mcL RBC 3.12 (L) 4.58 - 5.54 x10(6)/mcL Hemoglobin 9.8 (L) 13.7 - 16.5 gm/dL Hematocrit 30.2 (L) 40.5 - 48.5 % MCV 96.8 (H) 82.9 - 93.1 fL MCH 31.4 27.5 - 32.1 pg MCHC 32.5 32.0 - 35.7 gm/dL Platelets 662 (H) 145 - 357 x10(3)/mcL RDWSD 48.5 (H) 36.0 - 45.0 fL RDWCV 13.5 11.4 - 13.8 % MPV 8.7 7.6 - 12.9 fL nRBC % Auto 0.0 % nRBC Abs Auto 0.000 0.000 - 0.000 x10(3)/mcL Comprehensive metabolic panel (non-fasting) Result Value Ref Range Glucose Lvl 110 65 - 199 mg/dL BUN 14 10 - 20 mg/dL Creatinine 0.49 (L) 0.80 - 1.50 mg/dL Sodium 138 135 - 145 mmol/L Potassium 4.6 3.5 - 5.0 mmol/L Chloride 100 98 - 107 mmol/L CO2 29 22 - 31 mmol/L Anion Gap 9 5 - 15 mmol/L Calcium 8.8 8.5 - 10.5 mg/dL Total Protein 5.9 (L) 6.1 - 8.0 gm/dL Albumin 2.2 (L) 3.2 - 5.2 gm/dL AST 57 (H) 0 - 39 unit/L ALT 82 (H) 0 - 55 unit/L Alk Phos 387 (H) 40 - 130 unit/L Total Bilirubin 0.3 0.2 - 1.3 mg/dL Estimated GFR 121 >=60 mL/min/1.73 m?? Magnesium Result Value Ref Range Magnesium 0.89 0.69 - 1.07 mmol/L Phosphorus Result Value Ref Range Phosphorus 5.0 (H) 2.5 - 4.5 mg/dL Prealbumin Result Value Ref Range Prealbumin 3 (L) 20 - 40 mg/dL CRP, acute inflammation Result Value Ref Range CRP >300.0 (H) <=4.9 mg/L Lactate Dehydrogenase Result Value Ref Range LDH 139 110 - 220 unit/L APTT Result Value Ref Range PTT 32 25.0 - 37.0 sec Prothrombin Time Result Value Ref Range PT 14.1 (H) 9.4 - 12.5 sec INR 1.2 COVID-19 PCR Specimen: Nasopharyngeal Swab Symptoms->Surveillance Result Value Ref Range Rapid SARS-CoV-2 RNA Not Detected Not Detected SARS-CoV-2 Source [employer] Swab Cell Count Body Fluid Pleural Fluid Result Value Ref Range Spec Type BF Pleural Fl Color BF Yellow Appearance BF Cloudy WBC BF Ct 3,460 /mcl Polymorph % 96 % Mononuc % 4 % Polymorph BF ABS 3,307 /mcl Mononuc ABS 153 /mcl Protein Level Body Fluid Pleural, Right Result Value Ref Range Protein, BF 3.4 gm/dL Protein BF Type Pleural, Right Triglyceride Level Body Fluid Pleural, Right Result Value Ref Range Trig BF 30 mg/dL Trig, BF Type Pleural, Right Body Fluid Culture, Aerobic Specimen: Pleural Fluid RIGHT EMPYEMA Result Value Ref Range Gram Stain Many Neutrophils seen No microorganisms seen. Diagnostics: CXR 09/12/20 IMPRESSION * Interval placement of a right inferior approach pleural pigtail catheter * Decreased opacification of the right lower lung field, likely a combination of decreased pleural fluid and improved aeration. * No definite pneumothorax is evident. Micro: Body Fluid Cx 09/12/20: Many PMNs, no organisms seen on GS. Assessment: Zeeshan Almodovar is a 55 y.o. male who is s/p CT guided IR pigtail placement in Right chest; IR was able to drain 400 cc of serous fluid and we will continue Vancomycin and Zosyn for now. Mr. Almodovar can start his home medications today as there are no barriers to being NPO at this time. To further evaluate his abscess and fluid build up, a non-con CT at this time is indicated. The CT evaluation will also provide whether tPA/Dornase cycles are indicated for Mr. Almodovar. Plan: 1. Non-con CT Chest 2. Analgesia 3. Pulm toilet 4. Chest tube to strict suction Neuro: tylenol, toradol available for pain. Oxycodone, Duloxetine, Lamictal, Ritalin, Lyrica, Seroquel, melatonin, Nicoderm 21 Card: HDS, monitor vitals Pulm: Albuterol, IS/cough/deep breathe/OOB/ambulate. Continue Right CT to -20 sxn, monitor output. AM CXR FENGI: Regular diet. RBOs, Zofran, PPI, Famotidine Renal/: Monitor UOP Heme: levonox ID: Zosyn, Vanc Endo: JOSE D PPx: scds; loveonx, Ambulate 4x a day. OOB. Dispo: full code, floor status All imaging reviewed and plans discussed with Thoracic Surgery attending, Dr. Jordan. MADELAINE Lowry 09/12/2020 Thoracic Surgery Service Pager [phone] documented in this encounter H&P Notes * Roosevelt Garcia MD - 09/16/2020 10:34 AM EDT INTERVENTIONAL RADIOLOGY FOCUSED H&P: Procedure: Planned procedure: CT guided RML drainage catheter The patient's history and physical exam have been reviewed and completed. There has been no interval change from that of the pre-operative history and physical exam done within the last 30 days. The planned procedure (and sedation plan if appropriate) , its benefits and risks, and alternativeswere discussed with the patient. The patient consented to the procedure. PRE-SEDATION ASSESSMENT: Sedation Plan: minimal (single agent only) History of anesthetic complications: No Current medications reviewed: Yes Allergies reviewed: Yes Source Note - Roosevelt Garcia MD - 09/16/2020 8:32 AM EDT Images from the original note were not included. INTERVENTIONAL RADIOLOGY FOCUSED H&P and PRE-PROCEDURE NOTE: PCP: Nino Underwood MD Referring Provider: Dale Sanchez Planned Procedure: Planned procedure: CT guided RML drainage catheter Procedure Indication: Right middle lobe parafissural abscess/collection Presenting Diagnosis/ Complaint: Zeeshan Almodovar is a 55 y.o. male referred for CT guided chest drain for RML loculated fluid collection. Per chart review patient has PMH Hodgkins lymphoma s/p radiation (09/06/20) with CT (09/10) demonstrating right middle and lower lobe collections concerning for abscesses. He is s/p RLL pigtail placement with tPA/dornase therapy. Past Medical/Surgical History: Patient Active Problem List Diagnosis Code ??? Empyema J86.9 ??? Severe protein-calorie malnutrition E43 History reviewed. No pertinent past medical history. History reviewed. No pertinent surgical history. Medications: No current facility-administered medications on file prior to encounter. No current outpatient medications on file prior to encounter. Allergies: Wellbutrin [bupropion] Social History and Habits: Social History Socioeconomic History ??? Marital status: Spouse name: Not on file ??? Number of children: Not on file ??? Years of education: Not on file ??? Highest education level: Not on file Occupational History ??? Not on file Tobacco Use ??? Smoking status: Former Smoker Packs/day: 2.00 Years: 40.00 Pack years: 80.00 Types: Cigarettes Quit date: 09/07/2020 Years since quittin.0 ??? Smokeless tobacco: Never Used Substance and Sexual Activity ??? Alcohol use: [...] Gatherings with Friends and Family: ??? Attends Rastafari Services: ??? Active Member of Clubs or Organizations: ??? Attends Club or Organization Meetings: ??? Marital Status: Intimate Partner Violence: ??? Fear of Current or Ex-Partner: ??? Emotionally Abused: ??? Physically Abused: ??? Sexually Abused: Significant Family History: History reviewed. No pertinent family history. Pertinent ROS: as per HPI Labs: Lab Results Component Value Date WBC 21.9 (H) 09/16/2020 HCT 25.1 (L) 09/16/2020 PLATELET 583 (H) 09/16/2020 INR 1.2 09/11/2020 BUN 23 (H) 09/15/2020 CREATININE 0.55 (L) 09/15/2020 ALKPHOS 387 (H) 09/11/2020 AST 57 (H) 09/11/2020 ALBUMIN 2.2 (L) 09/11/2020 BILITOT 0.3 09/11/2020 ALT 82 (H) 09/11/2020 PROT 5.9 (L) 09/11/2020 K 4.3 09/15/2020 Imaging: Physical Exam: Pending (to be performed in angio the day of procedure) Assessment: 55 y.o. male with hodgkins lymphoma s/p radiation c/b RML and RLL abscesses. Radiology consulted for CT guided drainage catheter placement in anterolateral RML collection. Plan: Plan Planned procedure: CT guided RML drainage catheter Labs to be performed day of procedure: No labs Sedation: Fentanyl only Prophylactic antibiotic : None Contrast: No contrast Additional medications for procedure: Lidocaine Planned access site: Right lateral thorax Consent: Pending Medications to discontinue (and days held): None Cytopathology presence needed: No 09/16/[address] Espinosa * Roosevelt Garcia MD - 09/16/2020 8:32 AM EDT Images from the original note were not included. INTERVENTIONAL RADIOLOGY FOCUSED H&P and PRE-PROCEDURE NOTE: PCP: Nino Underwood MD Referring Provider: Dale Sanchez Planned Procedure: Planned procedure: CT guided RML drainage catheter Procedure Indication: Right middle lobe parafissural abscess/collection Presenting Diagnosis/ Complaint: Zeeshan Almodovar is a 55 y.o. male referred for CT guided chest drain for RML loculated fluid collection. Per chart review patient has H Hodgkins lymphoma s/p radiation (09/06/20) with CT (09/10) demonstrating right middle and lower lobe collections concerning for abscesses. He is s/p RLL pigtail placement with tPA/dornase therapy. Past Medical/Surgical History: Patient Active Problem List Diagnosis Code ??? Empyema J86.9 ??? Severe protein-calorie malnutrition E43 History reviewed. No pertinent past medical history. History reviewed. No pertinent surgical history. Medications: No current facility-administered medications on file prior to encounter. No current outpatient medications on file prior to encounter. Allergies: Wellbutrin [bupropion] Social History and Habits: Social History Socioeconomic History ??? Marital status: Spouse name: Not on file ??? Number of children: Not on file ??? Years of education: Not on file ??? Highest education level: Not on file Occupational History ??? Not on file Tobacco Use ??? Smoking status: Former Smoker Packs/day: 2.00 Years: 40.00 Pack years: 80.00 Types: Cigarettes Quit date: 09/07/2020 Years since quittin.0 ??? Smokeless tobacco: Never Used Substance and Sexual Activity ??? Alcohol use: [...] Gatherings with Friends and Family: ??? Attends Rastafari Services: ??? Active Member of Clubs or Organizations: ??? Attends Club or Organization Meetings: ??? Marital Status: Intimate Partner Violence: ??? Fear of Current or Ex-Partner: ??? Emotionally Abused: ??? Physically Abused: ??? Sexually Abused: Significant Family History: History reviewed. No pertinent family history. Pertinent ROS: as per HPI Labs: Lab Results Component Value Date WBC 21.9 (H) 09/16/2020 HCT 25.1 (L) 09/16/2020 PLATELET 583 (H) 09/16/2020 INR 1.2 09/11/2020 BUN 23 (H) 09/15/2020 CREATININE 0.55 (L) 09/15/2020 ALKPHOS 387 (H) 09/11/2020 AST 57 (H) 09/11/2020 ALBUMIN 2.2 (L) 09/11/2020 BILITOT 0.3 09/11/2020 ALT 82 (H) 09/11/2020 PROT 5.9 (L) 09/11/2020 K 4.3 09/15/2020 Imaging: Physical Exam: Pending (to be performed in angio the day of procedure) Assessment: 55 y.o. male with hodgkins lymphoma s/p radiation c/b RML and RLL abscesses. Radiology consulted for CT guided drainage catheter placement in anterolateral RML collection. Plan: Plan Planned procedure: CT guided RML drainage catheter Labs to be performed day of procedure: No labs Sedation: Fentanyl only Prophylactic antibiotic : None Contrast: No contrast Additional medications for procedure: Lidocaine Planned access site: Right lateral thorax Consent: Pending Medications to discontinue (and days held): None Cytopathology presence needed: No 09/16/[address] Espinosa * Conor Hong MD - 09/11/2020 7:11 PM EDT [facility] Department of Thoracic Surgery Admission Note HHPI: Zeeshan Almodovar is a 55 y.o. male with a hx of lymphocyte rich Hodgkin's lymphoma and COPD (nohome O2), recent 2PPD smoker. who recently finished radiation therapy on 09/06. He was admitted at [facility] with pleuritic chest pain and shortness of breath earlier this month and was diagnosedwith a RML and RLL pneumonia on CT chest. He was also noted to have an air cavity with a small amount of fluid in the RL which may represent pulmonary abscess and a small right pleural effusion. Uponadmission to OSH records show he had an O2 saturation of 82% on RA which improved to the 90s with NC. He was treated with ceftriaxone and azithromycin. Since that time he has clinically worsened and d eveloped a increasing O2 requirement. He WBC has risen to 27. He had a CT chest on 09/10/20 demonstrating what appears to be a 6cm right lung abscess and large right-sided empyema causing significant volume loss of the RLL. He was transferred to [facility] for further management. In the ED, he is afebrile and all vital signs are within normal limits. He's saturating well on 2.5LNC. His labs are significant for leukocytosis of 27.6. PMH/PSH: No past medical history on file. No past surgical history on file. MEDICATIONS: No current outpatient medications ALLERGIES: Not on File FAMILY HISTORY: No family history on file. SOCIAL HISTORY: Social History Socioeconomic History ??? Marital status: Spouse name: Not on file ??? Number of children: Not on file ??? Years of education: Not on file ??? Highest education level: Not on file Occupational History ??? Not on file Tobacco Use ??? Smoking status: Not on file Substance and Sexual Activity ??? Alcohol use: Not on file ??? Drug use: Not on file ??? Sexual activity: Not on file Other Topics Concern ??? Not on file [...] Gatherings with Friends and Family: ??? Attends Rastafari Services: ??? Active Member of Clubs or Organizations: ??? Attends Club or Organization Meetings: ??? Marital Status: Intimate Partner Violence: ??? Fear of Current or Ex-Partner: ??? Emotionally Abused: ??? Physically Abused: ??? Sexually Abused: REVIEW OF SYSTEMS: Complete 10 point ROS was reviewed and negative unless indicated Physical Exam: Last value Range last 24 hrs Temperature Temp: -- Heart Rate Heart Rate: -- Blood Pressure BP: -- BP (Arterial Line): -- Respiratory Rate Resp: -- SpO2 SpO2: -- General: NAD, conversant, thin body habitus Neuro: grossly intact, nonfocal, moving all four extremities spontaneously HEENT: NCAT, anicteric sclera CVS: regular rate Pulm: non-labored breathing on 2.5L NC Abd: soft, NT ND Skin: warm, no edema Labs: No results for input(s): WBC, HGB, HCT, PLATELET in the last 72 hours. No results for input(s): NA, K, CL, CO2, BUN, CREATININE, GLUCOSE in the last 72 hours. No results for input(s): PT, INR in the last 72 hours. Invalid input(s): PTT Imaging: CT Abdomen and Pelvis 09/11/2020 1. Increased size of the right pleural fluid collection which is loculated and contains foci of gas consistent with an empyema. 2. Right middle lobe collection concerning for abscess has increased in size. 3. Right lower lobe collapse. 4. New small left pleural effusion. Assessment/Recommendation: 55y M with a hx of lymphocyte rich Hodgkin's lymphoma and COPD (no home O2), recent 2PPD smoker whorecently finished radiation therapy on 09/06. He was transferred to [facility] after he developed a parapneumonic effusion while at OSH being treated for pneumonia. He had a CT chest done there on 09/10/20 dem onstrating what appears to be a 6cm right lung abscess and large right-sided empyema causing significant volume loss of the RLL. This was associated with increasing leukocytosis to 27. At [facility] he labs are similar. He is afebrile and saturating well on 2.5L NC. Bedside US shows a multiloculated right sided empyema. We will plan for admission to thoracic, [facility]/zosyn, placement of pigtail chest tubetonight, and potential operative intervention this admission pending clinical course. Conor Hong MD Thoracic Surgery 09/11/2020 Associated attestation - Marko Jordan MD - 09/12/2020 2:57 PM EDT I have seen the patient within 24hrs of the consult and reviewed the resident's above history and Iagree with the details as written. I discussed the case with the resident at the time of the consult and reviewed the films at that time. The assessment and plan were formulated in discussion with meand I agree with them as documented. 55y/o male with recent treatment for lymphoma with radiation who presents as transfer from OSH for Right sided pneumonia with large pleural effusion with gas concerning for empyema. Pigtail placed overnight and repeat CT scan shows loculated effusion. Will start tPA/Dornase today. Continue Abx. Marko Jordan MD 09/12/2020 documented in this encounter Procedure Notes * Conor Hong MD - 09/12/2020 12:55 AM EDT Procedure Note: Pigtail Chest Tube Placement Indications: empyema Pre-operative Diagnosis: Right Empyema Post-operative Diagnosis: Right Empyema Surgeon: MD Rocco Mahan Md Anesthesia: Local anesthesia 1% plain lidocaine Procedure Details: Informed consent was obtained for the procedure. Risks of lung perforation, hemorrhage, arrhythmia,and adverse drug reaction were discussed. Maximum sterile barrier technique was utilized. 15cc of 1% lidocaine total were used to perform a intercostal for the interspace of insertion and one above. An additional 3cc of 1% lidocaine were used to anesthetize the insertion tract and dermis. After sterile skin prep, under ultrasound guidance, the right multiloculated empyema was aspirated with the finder needle. Over an .035 inch guidewire, after serial dilation, a 14 Fr tube was placed in the right empyema.Tube was sutured to the skin, wound dressed, and tube left to pleurevac drainage. Specimens: Turbid serous fluid sent for culture and body fluid studies Complications: None; patient tolerated the procedure well. Findings: 400 ml of serous fluid obtained Impression: Right chest tube placed Plan: Chest tube to pleurevac at -20 cm H20. Record outputs. Conor Hong MD General Surgery 09/12/2020 documented in this encounter ED Notes * Debbie Salgado MD - 09/11/2020 7:50 PM EDT Brief Attending Note I cared for the patient with the resident physician. Please see Dr. Clemente's note, associated with the encounter, for more details. HPI: Zeeshan Almodovar is a 55 y.o. who presents to the ED from OSH with empyema. Hx Hodgkins lymphoma.s/p XRT August 2020. RML pneumonia. Right sided chest pain. CT shows empyema. Accepted by thoracic surgery. No hemoptysis. + Generalized weakness. ED Course: VSS, pulse ox slighly low on RA. Appears chronically and acutely ill, but not toxic. Decreased breath sounds at bases. Assessment/plan: Right Middle lobe with empyema Chest tube per thoracic surgery Admission to surgery Debbie Salagdo MD 09/11/20 2225 * Nicole Clemente MD - 09/11/2020 7:03 PM EDT ED Resident Note HPI: Zeeshan Almodovar is a 55 y.o. male with PMH s/f Hodgkin's Lymphoma (s/p radiation 09/06/20), COPD who presents to the Emergency Department as a transfer from [facility] for evaluation by thoracic surgery for right-sided empyema. Mr. Almodovar reports developing right-sided back pain, chest pain on 09/07, prompting him to be seen at [facility], where he was diagnosed with right-sided pneumonia. Over his hospital course he developed a new oxygen requirement, as well as leukocytosis to 27k. Repeat CT chest was obtained demonstrating right- sided empyema with right lower lobe collapse. Patient was accepted in transfer by [facility] thoracic surgery. Mr. Almodovar states that he has right-sided back pain that radiates around his right flank. His pain has been increasing over the last few days. Quality is described as pressure. He denies fever, hemoptysis, current chest pain, history of blood clots. He endorses diffuse weakness, shortness of breath, and productive cough. Pt was seen under the supervision of an attending physician. Review of Systems Pertinent positives and negatives are included in the HPI, otherwise at least ten systems were reviewed and negative. Past Medical and Surgical Histories, Social History, Medications, Allergies were reviewed in the chart. Vitals: ED Triage Vitals BP: n/a Pulse: n/a Resp: n/a Temp: n/a Temp src: n/a SpO2: n/a O2 Device: n/a O2 Flow Rate (L/min): n/a Physical Exam Vitals and nursing note reviewed. Constitutional: Appearance: He is ill-appearing. HENT: Head: Normocephalic and atraumatic. Mouth/Throat: Mouth: Mucous membranes are dry. Eyes: Pupils: Pupils are equal, round, and reactive to light. Cardiovascular: Rate and Rhythm: Normal rate and regular rhythm. Heart sounds: Normal heart sounds. Pulmonary: Effort: No respiratory distress. Breath sounds: Normal breath sounds. Abdominal: General: Abdomen is flat. Palpations: Abdomen is soft. Tenderness: There is no abdominal tenderness. There is no guarding or rebound. Musculoskeletal: Cervical back: Normal range of motion and neck supple. Skin: Findings: No rash. Neurological: General: No focal deficit present. Mental Status: He is alert and oriented to person, place, and time. Psychiatric: Mood and Affect: Mood normal. Behavior: Behavior normal. ED Course: I have reviewed labs and imaging, images and available reports, and they are significant for: ED Course as of Sep 12 1435 Wed Sep 11, 2020 1926 On 2L NC SpO2: 94 % 1999 CT , right pleural effusion 2100 WBC(!): 27.6 2100 Hemoglobin(!): 9.8 2100 Albumin(!): 2.2 2100 CRP(!): >300.0 2100 LDH: 139 2100 IMPRESSION ?? 1. Increased size of the right pleural fluid collection which is loculated and contains foci of gas consistent with an empyema. 2. Right middle lobe collection concerning for abscess has increased in size. 3. Right lower lobe collapse. 4. New small left pleural effusion. Request For 2nd Read CT Chest Kamila Sep 12, 2020 0130 Gram Stain: Many Neutrophils seen No microorganisms seen. Assessment and Plan: 55 y.o. male with PMH s/f HL s/p radiation on 09/06/20 transferred from [facility] for management of right-sided empyema. Vitals within normal limits patient saturating 95% on 2 L nasal cannula. Labs significant for leukocytosis of 27k. Second CT read demonstrates interval increase of right pleural effusion as well as increase in right middle lobe abscess, and right lower lobe collapse. Patient started on Vanc/Zosyn and pigtail was placed at the bedside by surgery team. Patient to be admitted to thoracic surgery for further management. The visit findings, diagnosis, and care plan were discussed with the patient. Dispo: -Admission to Thoracic Surgery Nicole Clemente MD Resident 09/12/20 1440 Associated attestation - Debbie Salgado MD - 09/25/2020 8:12 AM EDT ED ATTENDING ATTESTATION The patient was seen in conjunction with the resident physician. I have independently performed thekey portions of the history and physical exam. I have personally reviewed nursing notes, vital signs, and diagnostic studies including labs, imaging studies and EKGs. I have discussed the details of the case with the resident and agree with the assessment and plan as described in the resident's note, unless stated otherwise in my separate note. Did this case involve critical care? No * Hanh Nance MD - 09/11/2020 4:31 PM EDT The patient is a 55-year-old male with a history of lymphoma who recently finished radiation who isan inpatient at [facility] for several days with a diagnosis of pneumonia. He is coming to [facility] for evaluation by thoracic surgery after he has been found to have a worsening right-sided empyema. Thoracic surgery is concerning he needs a chest tube and potentially a VATS procedure. He is satting well on nasal cannula oxygen and has normal vital signs. His white blood cell count was 27,000.He is on antibiotics. Hanh Nance MD 09/11/20 1632 documented in this encounter Miscellaneous Notes * Consult Note - Conor Wood MD - 09/17/2020 11:22 AM EDTSummary: Empyema recommendations INFECTIOUS DISEASE INITIAL CONSULT NOTE Reason for Consult: We have been asked to see Zeeshan Almodovar by Dr. Jordan for antibiotic recommendations Consulting Service: Thoracic surgery Consulting Attending: Marko Jordan MD Admission Date: 09/11/2020 History of Present Illness: 55 y.o. male with a history of Hodgkin's lymphoma s/p radiation on 09/06/2020 and COPD (on chronic oxygen) who presented to [facility] for chest pain and dyspnea on 09/07 and was diagnosed with RMLand RLL pneumonia on CT chest and concern for pulmonary abscess. He was hypoxic on presentation with leukocytosis of 28 and was initially treated with ceftriaxone and azithromycin and switched to Unasyn on 09/08/20. Despite antibiotics had a persistent leukocytosis and repeat CT chest on 09/11 showed, increased size of the right pleural fluid collection which is loculated and contains foci of gas consistent with empyema. RML collection concerning for abscess has increased in size. He was transferred to [facility] for Thoracic surgery evaluation and need for possible VATS. Upon arrival on 09/12 a chest tube was placed and 400 ml of turbid serous fluid was obtained and sent for culture with no growth. His antibiotics were changed to Pip-tazo and vancomycin. He underwent 4 cycles of tpa/dornase and repeat imaging shows decreased fluid. However, repeat CT chest from 09/15with persistent intraparenchymal abscess in RML and some new extra parenchymal anterolateral fluid collection in the fissure. IR placed a drain in the right anteroinferior parafissural collection with removal of 5 mL of purulent fluid on 09/16 with gram stain showing GPCs. Patient reports feeling ok- still with chest pain /10 but resolution in chest pressure. Denies fevers, chills, nausea, vomiting, diarrhea. Denies cough, headache, rash. No antibiotic allergies. He has no dental pain (has only 2 teeth), never had a colonoscopy. He quit smoking (recent), quit drinking alcohol 2 years ago. He tells me plan is for discharge to home today. Review of Systems: Pertinent positives and negatives noted in HPI. All other systems reviewed and found negative. Allergies: Allergies Allergen Reactions ??? Wellbutrin [Bupropion] Past Medical and Surgical History: Classic Hodgkin Lymphoma Stage IB (s/p 1 cycle CHOP)- complicated by psychiatric decompensation Carpal tunnel syndrome s/p surgery in May 2020 Malnutrition COPD Family History: History reviewed. No pertinent family history. Social History and Habits: Lives in [place] with ayleen. 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 He quit smoking this month (prior 2ppd use). Physical Exam: Last value Range last 24 hrs Temperature Temp: 37.2 ??C (99 ??F) Temp: [37 ??C (98.6 ??F)-37.6 ??C (99.7 ??F)] Heart Rate Heart Rate: 81 Heart Rate: [81] Blood Pressure BP: 113/61 BP: (111-145)/(48-72) Respiratory Rate Resp: 18 Resp: [18-20] SpO2 SpO2: 93 % SpO2: [91 %-95 %] General Chronically ill-appearing, no acute distress HEENT No scleral icterus, clear oropharynx, no oral lesions Heart Regular, no murmur Lungs Clear on left, right with scattered crackles Abdomen Normoactive bowel sounds, soft, not tender Extremities No joint swelling, no edema Lymphnodes No cervical lymphadenopathy Skin No rash Neuro Grossly intact Lines Port in place, no erythema. Chest tube with scant output Laboratory: Recent Labs 09/17/2035609/16/206 09/15/20316 WBC 27.2* 21.9* 28.2* HGB 7.9* 8.1* 9.1* HCT 24.2* 25.1* 28.0* PLATELET 599* 583* 602* Recent Labs 09/17/2035609/15/2031609/14/20 034 NA 140 138 138 K 4.2 4.3 4.5 CL 106 105 106 CO2 28 25 27 BUN 13 23* 19 CREATININE 0.52* 0.55* 0.56* Recent Labs 09/11/202006 AST 57* ALT 82* ALKPHOS 387* BILITOT 0.3 CRP (mg/L) Date Value 09/11/2020 >300.0 (H) Pleural fluid from 09/12: 3,460 wbc (96%pmns) Microbiology: Body fluid culture 09/12: no growth Body fluid culture 09/16: many GPC seen on gram stain, no growth to date Outside hospital did not obtain any cultures- called and confirmed Radiology/Studies/Procedures: Reviewed Assessment: Zeeshan Almodovar is a 55 y.o. male with a history of Hodgkin's lymphoma and COPD (on chronic oxygen) transferred from [facility] with empyema. Patient was on Unasyn prior to transfer for 3-4 days and initial pleural fluid with 3,460 (96%) andturbid appearing with no growth on culture. Chest tube initially placed on 09/12 and s/p tpa/dornasewith repeat imaging on 09/15 showing decreased right pleural fluid collection, unchanged RML abscess. A second chest tube placed on 09/16 with GPC on gram stain, no growth to date. He is on the thoracic surgery service and there has been discussion that he primarily has intraparenchymal process and options are right VATS washout and decortication vs course of antibiotics. They plan to remove his chest tube and discharge on antibiotic today. Patient has several risk factors for development of empyema including immunosuppression (malignancy) and malnutrition. The most common organisms are Streptococcus spp, oral streptococci and anaerobes. Treatment is with drainage s/p chest tube and antibiotic therapy should be used until resolution of fluid/ abscess collection on imaging. Patients should be treated with IV antibiotics up front and can be transitioned to oral therapy when stable for discharge. He has been on IV therapy from 09/07- 09/17 with no fever. Does still have a stable leukocytosis. We would ideally have culture data available to select antibiotic regimen- GPC present on gram stain from 09/16 although initial culture with no growth. I think it less likely to be MRSA as he was on Unasyn (no MRSA coverage) and culture from admission did not grow. Therefore, would recommend discharge on oral Augmentin 875 mg po bid for a duration of up to 4-6 weeks (total therapy) with final duration based on resolution/improvement of abscess and resolution of effusion on imaging. Should he fail to improve, may need to be re-evaluated for VATS for source control. Recommendations: -Discharge on oral Augmentin 875 mg po bid with duration based on resolution of effusion/abscess onimaging somewhere around 4-6 weeks of total therapy (including 10 days of IV already received) -Follow up final cultures This patient was seen and discussed with ID attending Dr. Wood. Recommendations discussed with primary treating team. ID will sign off anticipating discharge. Please page [phone] if further consultation required. Patsy Josue, DO Infectious Disease Fellow Pager [phone] I interviewed, examined and discussed the patient with Dr. Josue, with whose findings and recommendations I concur.Final duration of therapy is hard to define at this time given that it will be driven at least in part by f/u imaging, but should be a minimum of a month from last (09/16) drainage. Conor Wood MD * Plan of Care - Sonia Huynh RN - 09/17/2020 2:12 AM EDT OUTCOME EVALUATION NOTE: OUTCOME SUMMARY: Zeeshan Almodovar had a good night. No acute events. No signs or symptoms of distress, denies SOB, numbness or tingling. A/Ox4, VSS, Afebrile. NPO @ 0001. Pain management seems to be an intermittent issue. Lung sounds dim, basilar CT flushed. Voiding adequate amounts, spontaneously. PLAN MOVING FORWARD: Continue to monitor as ordered Manage pain adequately Encourage and promote good PO fluid and nutrition intake Encourage ambulation as tolerated Promote self care and independence Encourage IS use Ongoing discharge planning INDIVIDUALIZED FALL PREVENTION INTERVENTIONS: Patient-specific fall risk factors per assessment: [current deficits]: Needs assistance getting outof bed or chair, Pain with movement/ambulation Assistance [level of assistance required for transfers and ambulation]: non-skid shoes/slippers, Standby assist Supervision [direct monitoring required during toileting and ADLs]: Eyes on Surveillance [continuous indirect monitoring]: Purposeful rounding, call forde in reach Patient-specific fall prevention interventions for sensory deficits provided, if applicable: Yes: Light adjusted for task/safety CPG GOAL OUTCOME EVALUATION: ongoing * Plan of Care - Arpan Jung RN - 09/15/2020 6:35 AM EDT OUTCOME EVALUATION NOTE: OUTCOME SUMMARY: @2230: pt transferred from [facility] to floor in the bed. A+O x 4. VSS except mild tachycardia w/getting up to bathroom noted. Pain was controlled with scheduled Tylenol and I.V Toradol. Voided adequateamounts. Right lateral chest tube to -20 mm H2O suction draining small amount of serosang drainage.Scheduled I.V zosyn and vancomycin given as ordered. Pt reported constipation upon arrival. price analyst paged for suppository per pt request. Suppository given at 0007 with small amount of bowel movement x1 reported. Bed alarm on at all times for safety. Chest x-ray done in the delivery man. Will continue to monitor. PLAN MOVING FORWARD: Pain control Encourage ambulation and pulmonary hygiene Chest x-ray Monitor CT output INDIVIDUALIZED FALL PREVENTION INTERVENTIONS: Patient-specific fall risk factors per assessment: [current deficits]: narcotics, generalized weakness, CT to suction. Assistance [level of assistance required for transfers and ambulation]: SBA Supervision [direct monitoring required during toileting and ADLs]: eyes on, hands on. Surveillance [continuous indirect monitoring]: purposeful rounding, bed /chair alarm, call light inreach. Patient-specific fall prevention interventions for sensory deficits provided, if applicable: yes, light adjusted. CPG GOAL OUTCOME EVALUATION: * Consult Note - Kim Aguilar RPH - 09/14/2020 6:59 PM EDT Clinical Pharmacist Note-Vanc Zeeshan Almodovar [id number] Zeeshan Almodovar is a 55 y.o. male is being monitored due to antibiotic therapy which includes intravenous vancomycin. Regimen: Vancomycin 1000 mg every 8 hours Indication: empiric coverage of empyema Initiation Date: 09/11 Day of Therapy: 3 Targeted Goal Range: 15 - 20 mcg/mL Pharmacokinetic information: Wt Readings from Last 1 Encounters: 09/12/20 53.9 kg (118 lb 12.8 oz) Ht Readings from Last 1 Encounters: 09/12/20 162.6 cm (5' 4) Labs: Vancomycin: Vanc Trough (mg/L) Date Value 09/14/2020 17.3 Creatinine clearance: Creatinine (mg/dL) Date Value 09/14/2020 0.56 (L) Recommendations: Dosing recommendations: ??? Trough level drawn appropriately and within target goal range. No change in vancomycin dose or dosing interval at this time. Monitoring recommendations: ??? Recheck vancomycin trough level (30 minutes prior to a scheduled dose) if significant changes in SCr, BUN or fluid status occur; otherwise recheck serum trough levels (30 minutes prior to a scheduled dose) in 3-5 days. We will continue to monitor the patient as long as he remains on vancomycin therapy. Please watch SCr, BUN and fluid status closely. Please page the care area pharmacist with any questions you may have. Alternately, during off-hours you may call [phone] to contact a pharmacist. KIM AGUILAR RPH * Plan of Care - Valery Lomax RN - 09/14/2020 6:05 PM EDT OUTCOME EVALUATION NOTE: OUTCOME SUMMARY: VSS on RA Pain 03/09 in R Chest Tube site; Managed with darnell. IV Toradol, PO Tylenol, Lidocaine Patches, PO PRN 4mg Dilaudid R CT cont. -20mm H20 suction- draining serosangious. Fluid- see flowsheets C/W IV Abx - Zosyn and Vanc. Per JUL CXR performed this morning- see results Vanc trough drawn-see results PT resting between nursing care PLAN MOVING FORWARD: Monitor VS, Labs, I&O Pain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 ??Several new irregular focal opacities in the right lower lobe are most likely due to infection or inflammation. I have personally reviewed the image(s) and the resident's interpretation and agree with the findings, Simone Scott MD at 09/26/2020 9:32 AM Thank you for letting us participate in the care of this patient. ??If you are a health care provider and have any questions regarding this report, please contact the number below. ??For patients who have questions please contact the health animal care assistant that requested your imaging first. ? Narrative 09/26/2020 9:32 AM EDT EXAMINATION: CT CHEST W CONTRAST CLINICAL HISTORY: Pleural effusion; Pneumonia TECHNIQUE: 3.75 mm thick axial contiguous sections were obtained through the chest via helical acquisition after the intravenous administration of contrast, Administered 60.0 ml of OMNIPAQUE 350.00 mg/ml. Thin-section reconstructions as well as coronal and sagittal reformatted images were generated. COMPARISON: CT chest 09/15/2020 FINDINGS: Pulmonary parenchyma: Decrease in size of the right middle lobe collection with an increased component of central air. Decreased atelectasis of the right lower lobe and right middle lobe. There are several new irregular nodular opacities in the right lower lobe (for example series 4, image 53 and 55). Centrilobular emphysematous changes, as before. Airways: There is a small amount of mucus within the trachea. No airway occlusion is seen. Pleura: Interval removal of right-sided posterior chest tube. Decreased size of the loculated right-sided pleural collection containing foci of air. Resolved fluid in the right major fissure. Lymph nodes: Unchanged 1 cm right paratracheal node (series 3 image 37). Minimally decreased size of subcarinal node, now measuring 1.2 cm (series 3 image 42). Heart, pericardium, and great vessels: A left-sided MediPort with catheter tip at the cavoatrial junction is seen again. Unchanged coronary artery calcifications. Heart is normal in size with no pericardial effusion. Other mediastinal structures: No significant findings. Lower neck: No significant findings. Upper abdomen: No significant findings. Body wall soft tissues: Resolved subcutaneous emphysema seen on prior study. Skeletal structures: Unchanged degenerative changes of the thoracolumbar spine, including compression deformity of L1. Procedure Note Simone Scott MD - 09/26/2020 EXAMINATION: CT CHEST W CONTRAST CLINICAL HISTORY: Pleural effusion; Pneumonia TECHNIQUE: 3.75 mm thick axial contiguous sections were obtained throughthe chest via helical acquisition after the intravenous administration ofcontrast, Administered 60.0 ml of OMNIPAQUE 350.00 mg/ml. Thin-sectionreconstructions as well as coronal and sagittal reformatted images were generated. COMPARISON: CT chest 09/15/2020 FINDINGS: Pulmonary parenchyma: Decrease in size of the right middle lobe collectionwith an increased component of central air. Decreased atelectasis of the rightlower lobe and right middle lobe. There are several new irregular nodularopacities in the right lower lobe (for example series 4, image 53 and 55).Centrilobular emphysematous changes, as before. Airways: There is a small amount of mucus within the trachea. No airway occlusion is seen. Pleura: Interval removal of right-sided posterior chest tube. Decreasedsize of the loculated right-sided pleural collection containing foci of air.Resolved fluid in the right major fissure. Lymph nodes: Unchanged 1 cm right paratracheal node (series 3 image 37). Minimally decreased size of subcarinal node, now measuring 1.2 cm (series3 image 42). Heart, pericardium, and great vessels: A left-sided MediPort with cathetertip at the cavoatrial junction is seen again. Unchanged coronary artery calcifications. Heart is normal in size with no pericardial effusion. Other mediastinal structures: No significant findings. Lower neck: No significant findings. Upper abdomen: No significant findings. Body wall soft tissues: Resolved subcutaneous emphysema seen on priorstudy. Skeletal structures: Unchanged degenerative changes of the thoracolumbarspine, including compression deformity of L1. IMPRESSION 1. Right middle lobe abscess has decreased in size. 2. Decreased right pleural fluid collection. 3. Several new irregular focal opacities in the right lower lobe aremost likely due to infection or inflammation. I have personally reviewed the image(s) and the resident's interpretationand agree with the findings, Simone Scott MD at 09/26/2020 9:32 AM Thank you for letting us participate in the care of this patient. If youare a health care provider and have any questions regarding this report,please contact the number below. For patients who have questions please contactthe health animal care assistant that requested your imaging first. Marko Jordan MD IMG CT ORDERABLES * XR Chest PA & Lateral (Generic) (09/17/2020 2:11 PM EDT) Anatomical Region Laterality Modality Chest N/A Digital Radiogra phy Impressions 09/17/2020 2:30 PM EDT No pneumothorax or other interval change seen post right chest tube removal. Thank you for letting us participate in the care of this patient. ??If you are a health care provider and have any questions regarding this report, please contact the number below. ??For patients who have questions please contact the health animal care assistant that requested your imaging first. ? Narrative 09/17/2020 2:30 PM EDT EXAMINATION: XR CHEST PA AND LATERAL (GENERIC) CLINICAL HISTORY: s/p anterolateral chest tube removal TECHNIQUE: PA and lateral views of the chest 09/17/2020 at 1411 hours. COMPARISON: 09/17/2020 at 1105 hours. FINDINGS: Right-sided pigtail catheter has been removed. MediPort catheter tip in unchanged position. No pneumothorax seen. Unchanged appearance of the right hemithorax, including pleural fluid at the base and in the fissure. Unchanged appearance of the left lung, cardiomediastinal silhouette and pulmonary vessel markings. Procedure Note Sharon Freitas MD - 09/17/2020 EXAMINATION: XR CHEST PA AND LATERAL (GENERIC) CLINICAL HISTORY: s/p anterolateral chest tube removal TECHNIQUE: PA and lateral views of the chest 09/17/2020 at 1411 hours. COMPARISON: 09/17/2020 at 1105 hours. FINDINGS: Right-sided pigtail catheter has been removed. MediPort cathetertip in unchanged position. No pneumothorax seen. Unchanged appearance of theright hemithorax, including pleural fluid at the base and in the fissure.Unchanged appearance of the left lung, cardiomediastinal silhouette and pulmonaryvessel markings. IMPRESSION No pneumothorax or other interval change seen post right chest tube removal. Thank you for letting us participate in the care of this patient. If youare a health care provider and have any questions regarding this report,please contact the number below. For patients who have questions please contactthe health animal care assistant that requested your imaging first. Marko Jordan MD IMG DX ORDERABLES * XR Chest PA & Lateral (Generic) (09/17/2020 11:05 AM EDT) Anatomical Region Laterality Modality Chest N/A Digital Radiogra phy Impressions 09/17/2020 11:40 AM EDT 1. ??Interval removal of posterior basal right pleural catheter. ??No pneumothorax. 2. ??Stable position of ventral right pleural catheter. ?? 3. ??Persistent streaky and confluent airspace opacities at the right lung base. 4. ??Stable trace left pleural effusion. Thank you for letting us participate in the care of this patient. ??If you are a health care provider and have any questions regarding this report, please contact the number below. ??For patients who have questions please contact the health animal care assistant that requested your imaging first. ? Narrative 09/17/2020 11:40 AM EDT EXAMINATION: XR CHEST PA AND LATERAL (GENERIC) CLINICAL HISTORY: 55-year-old male status post pleural catheter removal. Follow-up for pneumothorax and pleural effusion. TECHNIQUE: PA and lateral views of the chest COMPARISON: Comparison is made to multiple prior chest radiograph examinations, the most recent which is dated September 17, 2020. FINDINGS: The left subclavian chest port is in unchanged position with catheter tip overlying the cavoatrial junction. There is been interval removal of the posterior and basal right pleural catheter. ??The ventral and lateral pleural catheter remains in unchanged position. ??There are persistent streaky and patchy airspace opacities at the right lung base, most pronounced surrounding the ventral pleural catheter. There is a small left pleural effusion. The trachea is midline. ??Right hilar structures are obscured. ??Left hilar structures are within normal limits. The cardiomediastinal contours are unchanged. Visualized structures within the superior abdomen are unremarkable. There is a stable compression fracture deformity of L1. ??There are degenerative changes of visualized spine with endplate sclerosis and osteophyte formation Procedure Note Jaxon Espinosa DO - 09/17/2020 EXAMINATION: XR CHEST PA AND LATERAL (GENERIC) CLINICAL HISTORY: 55-year-old male status post pleural catheter removal. Follow-up for pneumothorax and pleural effusion. TECHNIQUE: PA and lateral views of the chest COMPARISON: Comparison is made to multiple prior chest radiographexaminations, the most recent which is dated September 17, 2020. FINDINGS: The left subclavian chest port is in unchanged position with cathetertip overlying the cavoatrial junction. There is been interval removal of the posterior and basal right pleural catheter. The ventral and lateral pleural catheter remains in unchanged position. There are persistent streaky and patchy airspace opacities atthe right lung base, most pronounced surrounding the ventral pleural catheter.There is a small left pleural effusion. The trachea is midline. Right hilar structures are obscured. Lefthilar structures are within normal limits. The cardiomediastinal contours are unchanged. Visualized structures within the superior abdomen are unremarkable. There is a stable compression fracture deformity of L1. There aredegenerative changes of visualized spine with endplate sclerosis and osteophyteformation IMPRESSION 1. Interval removal of posterior basal right pleural catheter. No pneumothorax. 2. Stable position of ventral right pleural catheter. 3. Persistent streaky and confluent airspace opacities at the right lungbase. 4. Stable trace left pleural effusion. Thank you for letting us participate in the care of this patient. If youare a health care provider and have any questions regarding this report,please contact the number below. For patients who have questions please contactthe health animal care assistant that requested your imaging first. Marko Jordan MD IMG DX ORDERABLES * XR Chest PA & Lateral (Generic) (09/17/2020 5:23 AM EDT) Anatomical Region Laterality Modality Chest N/A Digital Radiogra phy Impressions 09/17/2020 8:27 AM EDT 2 pigtail catheters are present in the right lower chest. Fluid collection in the region of the right middle lobe has increased in size. Thank you for letting us participate in the care of this patient. ??If you are a health care provider and have any questions regarding this report, please contact the number below. ??For patients who have questions please contact the health animal care assistant that requested your imaging first. ? Narrative 09/17/2020 8:27 AM EDT EXAMINATION: XR CHEST PA AND LATERAL (GENERIC) CLINICAL HISTORY: Pt with lymphoma, right lower lobe abscess and right pleural effusion s/p 2 pigtail drains. s/p tPA/dornase x2 to fissure collection. Eval size TECHNIQUE: PA and lateral views of the chest COMPARISON: September 15, 2020 FINDINGS: Left subclavian central venous access port remains in position. Pigtail catheter remains in position posteriorly in the right lower chest. A second pigtail catheter has been placed in the region of the right middle lobe abscess. This fluid collection has increased in size. No other significant change in the chest. Heart and pulmonary vasculature are normal. Procedure Note Ian Ya MD - 09/17/2020 EXAMINATION: XR CHEST PA AND LATERAL (GENERIC) CLINICAL HISTORY: Pt with lymphoma, right lower lobe abscess and rightpleural effusion s/p 2 pigtail drains. s/p tPA/dornase x2 to fissure collection.Eval size TECHNIQUE: PA and lateral views of the chest COMPARISON: September 15, 2020 FINDINGS: Left subclavian central venous access port remains in position. Pigtailcatheter remains in position posteriorly in the right lower chest. A secondpigtail catheter has been placed in the region of the right middle lobe abscess.This fluid collection has increased in size. No other significant change inthe chest. Heart and pulmonary vasculature are normal. IMPRESSION 2 pigtail catheters are present in the right lower chest. Fluid collectionin the region of the right middle lobe has increased in size. Thank you for letting us participate in the care of this patient. If youare a health care provider and have any questions regarding this report,please contact the number below. For patients who have questions please contactthe health animal care assistant that requested your imaging first. Marko Jordan MD IMG DX ORDERABLES * (ABNORMAL) Differential, Automated (09/17/2020 3:57 AM EDT) Neutrophil % 84.9 % [facility] Neutrophil Absolute 23.10(H) 1.70 - 6.10 x10(3)/mc L [facility] Lymph % 5.6 % [facility] Lymphocytes Abs 1.5 0.9 - 3.2 x10(3)/mc L [facility] Monocyte % 6.3 % [facility] Monocyte Abs 1.7(H) 0.3 - 0.9 x10(3)/mc L [facility] Eos % 2.0 % [facility] Eosinophils Abs 0.5(H) 0.0 - 0.4 x10(3)/mc L [facility] Basophil % 0.2 % [facility] Baso Absolute 0.1 0.0 - 0.1 x10(3)/mc L [facility] Immature Gran % 1.00 % [facility] Comment: Immature granulocytes(IG's)percentage and absolute count will include metamyelocytes, myelocytes, and promyelocytes. Blood smears from CBCs yielding IG's will be scanned manually for concordance. If this scan disagrees with the automated IG or if promyelocytes are noted, a manual differential will be performed. Immature Gran Absolute 0.27(H) 0.00 - 0.04 x10(3)/mc L [facility] Blood specimen (specimen) 09/17/2020 3:57 AM EDT 09/17/2020 4:06 AM EDT Narrative Resulting Agency Comment Spec In Lab Brianna Gama MD HEMATOLOGY ORDERABLE S [facility] [place] [address] * (ABNORMAL) Hemogram (09/17/2020 3:57 AM EDT) White Blood Cell 27.2(H) 4.0 - 9.5 x10(3)/mc L [facility] Red Blood Cell 2.51(L) 4.58 - 5.54 x10(6)/mc L [facility] Hemoglobin 7.9(L) 13.7 - 16.5 gm/dL [facility] Hematocrit 24.2(L) 40.5 - 48.5 % [facility] Mean Cell Volume 96.4(H) 82.9 - 93.1 fL [facility] Mean Cell Hemoglobin 31.5 27.5 - 32.1 pg [facility] Mean Cell Hemoglobin Concentration 32.6 32.0 - 35.7 gm/dL [facility] Platelet 599(H) 145 - 357 x10(3)/mc L [facility] RDW Standard Deviation 50.2(H) 36.0 - 45.0 fL [facility] RDW coefficient of variation 14.4(H) 11.4 - 13.8 % [facility] Mean Platelet Volume 8.7 7.6 - 12.9 fL [facility] NRBC% auto 0.0 % [facility] NRBC Absolute 0.000 0.000 - 0.000 x10(3)/mc L [facility] Blood specimen (specimen) 09/17/2020 3:57 AM EDT 09/17/2020 4:06 AM EDT Narrative Resulting Agency Comment Spec In Lab Brianna Gama MD HEMATOLOGY ORDERABLE S Performing Organization Address City/[facility]/ZIP Co de Phone Number [facility] [place] [address] * Phosphorus (09/17/2020 3:57 AM EDT) Phosphorus 3.7 2.5 - 4.5 mg/dL [facility] Blood specimen (specimen) 09/17/2020 3:57 AM EDT 09/17/2020 4:06 AM EDT Narrative Resulting Agency Comment Spec In Lab Marko Jordan MD CHEMISTRY ORDERABLE S Performing Organization Address [facility]/ZIP Co de Phone Number [facility] [place] [address] * Magnesium (09/17/2020 3:57 AM EDT) Magnesium 0.92 0.69 - 1.07 mmol/L [facility] Blood specimen (specimen) 09/17/2020 3:57 AM EDT 09/17/2020 4:06 AM EDT Narrative Resulting Agency Comment Spec In Lab Marko Jordan MD CHEMISTRY ORDERABLE S Performing Organization Address [facility]/ZIP Co de Phone Number [facility] [place] [address] * (ABNORMAL) Basic Metabolic Panel (non-fasting) (09/17/2020 3:57 AM EDT) Glucose 102 65 - 199 mg/dL [facility] Comment:Diabetes: >=200 mg/d L plus symptoms Blood Urea Nitrogen 13 10 - 20 mg/dL [facility] Creatinine 0.52(L) 0.80 - 1.50 mg/dL [facility] Sodium 140 135 - 145 mmol/L [facility] Potassium 4.2 3.5 - 5.0 mmol/L [facility] Comment: Please note: ??Patients with WBC >100,000 may have falsely elevated Potassium levels. ??For accurate Potassium quantification in these patients send serum separator tube (gold top) for subsequent determinations. ??Contact the Clinical Chemistry Laboratory if there are any questions. Chloride 106 98 - 107 mmol/L [facility] Carbon Dioxide 28 22 - 31 mmol/L [facility] Anion Gap 6 5 - 15 mmol/L [facility] Calcium 8.2(L) 8.5 - 10.5 mg/dL [facility] Est Glomerular Filtration Rate 118 >=60 mL/min/1. 73 m?? [facility] Comment: This patient? s estimated glomerular filtration rate (eGFR) is between 118 mL/min/1.73 m2 (patients with less muscle mass per kg body weight) and 137 mL/min/1.73 m2 (patients with more muscle mass per kg body weight) as determined by the CKD-EPI equation. Assessment of eGFR is not appropriate when creatinine concentrations are rapidly changing. For clinical decisions where creatinine clearance will affect therapy, a 24-hour urine creatinine clearance may be advised. Assignment of CKD stage 1 - 5 for patients with an eGFR near the transition point between stages may be based on clinical assessment of muscle mass and symptoms in addition to eGFR. Blood specimen (specimen) 09/17/2020 3:57 AM EDT 09/17/2020 4:06 AM EDT Narrative Resulting Agency Comment Spec In Lab Marko Jordan MD CHEMISTRY ORDERABLE S [facility] [place] [address] * CT Guided Drain Lung (09/16/2020 12:59 PM EDT) Anatomical Region Laterality Modality Computed Tomogra phy Impressions 09/16/2020 1:29 PM EDT Impression: Successful CT-guided drain placement in right anteroinferior parafissural collection. Plan/Disposition: 1) To Angio recovery room, may discharge to thoracic surgery when meets criteria. 2) Forward flush every 12 hours ??with 5 mL of normal saline. Record outputs daily. Venetian Blind Maker(s): Resident/Fellow: Dr. Roosevelt Garcia Attending: Dr. Jaxon Espinosa Procedure/Teaching Attestation: I was present for the procedure. Moderate Sedation Attestation: I was present during the intra-service time as documented by IR nurse. I have personally reviewed the image(s) and the resident's interpretation and agree with the findings, Jaxon Espinosa DO at 09/16/2020 1:29 PM Thank you for letting us participate in the care of this patient. ??If you are a health care provider and have any questions regarding this report, please contact the number below. ??For patients who have questions please contact the health animal care assistant that requested your imaging first. ? Narrative 09/16/2020 1:29 PM EDT RADIOLOGY PROCEDURE NOTE Procedure: CT Guided drain placement , parafissural RML collection Indication for Procedure: Pt with lymphoma and RLL abscess and pleural effusion s/p pigtail drain and 4 cycles of tPA/dornase. F/u CT chest showing persistent RLL abscess and intrafissure fluid collection.. Consent: After discussing the risks (including infection, hemorrhage, damage to surrounding structures, respiratory depression) and benefits, the patient consented to the procedure. Method of Sedation: ??Due to the painful nature of the procedure, patient received split doses of intravenous fentanyl and versed from the IR nurse while pulse, pressure, and oxygen saturation were continuously monitored. 1% lidocaine was used for local analgesia. Technique: Prior to beginning the procedure, a standard time out Moment of Truth was performed. The patient was positioned supine on the CT table. ??An initial non-contrast localizing CT scan was obtained. ??A site for drain placement was identified on the skin with the assistance of the CT laser lights. The skin was marked, prepped, and local anesthesia provided with 1% lidocaine. Maximum sterile barrier technique was used throughout the procedure. ??An 18 ga needle was directed into the collection with intermittent CT fluoroscopy. Sanguinous fluid was aspirated. ??A 0.035 inch guide wire was placed through the needle and position within the collection was confirmed with CT. The needle was removed over the wire, the access tract was dilated and a 6 Fr locking pigtail drainage catheter was placed. Post placement CT showed the catheter tip located within the right minor fissure. A second 18-gauge needle was directed into the collection inferiorly with intermittent CT fluoroscopy. Purulent fluid was aspirated. A 0.035 inch guidewire was placed through the needle and positioned within the collection was confirmed with CT. The needle was removed over the wire, the access tract was dilated and a 6 Yi locking pigtail drainage catheter was placed. Postplacement CT showed the catheter tip located within the target collection. 5 mL of purulent fluid was aspirated and the catheter connected to suction drainage. ??A sample sent for gram stain and cultures. The drainage catheter was secured to the skin with 2-0 Prolene suture. A sterile dressing was applied. Following confirmation of second drainage catheter placement, the first catheter was removed with greater than expected bleeding was present at the insertion site. Hemostasis was achieved with manual compression. Patient was coughed up several blood clots during the procedure. These findings were communicated to the thoracic surgery team at the conclusion of the procedure. Medications: Please see EMR Contrast: None EBL: Approximately 20 cc Complications: Greater than expected bleeding at insertion site, hemostasis obtained with manual compression. Specimens: Purulent fluid sent for culture Findings: Pre-procedure CT showed right middle lobe parafissural collection. Final CT showed a 6 Fr drain positioned in the collection. 5 mL of purulent fluid removed. Marko Jordan MD [facility] [place] ORDERABLES * Anaerobic Culture (09/16/2020 12:30 PM EDT) Anaerobic Culture No anaerobic organisms isolated [facility] Pleural fluid specimen (specimen) 09/16/2020 12:30 PM EDT 09/16/2020 1:35 PM EDT Comment:RIGHT LUNG Narrative Resulting Agency Comment Spec In Lab Marko Jordan MD MICROBIOLOGY - GENE RAL ORDERABLES Performing Organization Address [facility] Co de Phone Number [facility] [place] [address] * (ABNORMAL) Body Fluid Culture, Aerobic (09/16/2020 12:30 PM EDT) Body Fluid Culture Moderate Streptococcus milleri, anginosis group(A) [facility] Gram Stain Many Neutrophils seen Many Gram Positive Cocci seen Results called to and read back by COLEMAN Berry RN - DC ??09/16/20 15:07:44 (A) [facility] Organism Streptococcus milleri, anginosis group(A) [facility] Organism Gram Positive Cocci(A) [facility] Pleural fluid specimen (specimen) 09/16/2020 12:30 PM EDT 09/16/2020 1:35 PM EDT Comment:RIGHT LUNG Narrative Resulting Agency Comment Spec In Lab Organism Antibiotic Method Susceptibility Streptococcus milleri Ceftriaxone MINIMUM IN HIBITORY CONCENTRATION 0.125: Sensitive Streptococcus milleri Levofloxacin MINIMUM IN HIBITORY CONCENTRATION 0.5: Sensitive Streptococcus milleri Penicillin MINIMUM IN HIBITORY CONCENTRATION 0.032: Sensitive Comment: Penicillin susceptible Streptococci species can be considered susceptible to Ampicillin, Ampicillin-Sulbactam, Amoxicillin, Amoxicillin-Clavulanate, Ceftriaxone and Meropenem. Marko Jordan MD MICROBIOLOGY - GENE RAL ORDERABLES Performing Organization Address [facility] Co de Phone Number [facility] [place] [address] * (ABNORMAL) Differential, Automated (09/16/2020 3:46 AM EDT) Neutrophil % 80.5 % [facility] Neutrophil Absolute 17.62(H) 1.70 - 6.10 x10(3)/ L [facility] Lymph % 8.5 % [facility] Lymphocytes Abs 1.9 0.9 - 3.2 x10(3)/ L [facility] Monocyte % 7.1 % [facility] Monocyte Abs 1.6(H) 0.3 - 0.9 x10(3)/ L [facility] Eos % 2.5 % [facility] Eosinophils Abs 0.5(H) 0.0 - 0.4 x10(3)/[facility] Basophil % 0.3 % [facility] Baso Absolute 0.1 0.0 - 0.1 x10(3)/[facility] Immature Gran % 1.10 % [facility] Comment: Immature granulocytes(IG's)percentage and absolute count will include metamyelocytes, myelocytes, and promyelocytes. Blood smears from CBCs yielding IG's will be scanned manually for concordance. If this scan disagrees with the automated IG or if promyelocytes are noted, a manual differential will be performed. Immature Gran Absolute 0.24(H) 0.00 - 0.04 x10(3)/ L [facility] Blood specimen (specimen) 09/16/2020 3:46 AM EDT 09/16/2020 3:52 AM EDT Narrative Resulting Agency Comment Spec In Lab Brianna Gama MD HEMATOLOGY ORDERABLE S [facility] [place] [address] * (ABNORMAL) Hemogram (09/16/2020 3:46 AM EDT) White Blood Cell 21.9(H) 4.0 - 9.5 x10(3)/ L [facility] Red Blood Cell 2.56(L) 4.58 - 5.54 x10(6)/mc L [facility] Hemoglobin 8.1(L) 13.7 - 16.5 gm/dL [facility] Hematocrit 25.1(L) 40.5 - 48.5 % [facility] Mean Cell Volume 98.0(H) 82.9 - 93.1 fL [facility] Mean Cell Hemoglobin 31.6 27.5 - 32.1 pg [facility] Mean Cell Hemoglobin Concentration 32.3 32.0 - 35.7 gm/dL [facility] Platelet 583(H) 145 - 357 x10(3)/mc L [facility] RDW Standard Deviation 50.4(H) 36.0 - 45.0 [facility] RDW coefficient of variation 14.3(H) 11.4 - 13.8 % [facility] Mean Platelet Volume 8.5 7.6 - 12.9 [facility] NRBC% auto 0.0 % [facility] NRBC Absolute 0.000 0.000 - 0.000 x10(3)/mc L [facility] Blood specimen (specimen) 09/16/2020 3:46 AM EDT 09/16/2020 3:52 AM EDT Narrative Resulting Agency Comment Spec In Lab Brianna Gama MD HEMATOLOGY ORDERABLE S Performing Organization Address City/State/[facility] Co de Phone Number [facility] [place] [address] * CT Chest w Contrast (09/15/2020 10:34 AM EDT) Anatomical Region Laterality Modality Chest Computed Tomogra phy Impressions 09/15/2020 11:45 AM EDT 1. ??Decreased right pleural fluid collection, small residual with air and fluid posteromedially. 2. ??Right middle lobe abscess is unchanged. 3. ??Reactive right paratracheal and subcarinal lymph clary enlargement unchanged. Preliminary report signed by: Ugo Martinez at 09/15/2020 11:32 AM I have personally reviewed the image(s) and the resident's interpretation and agree with the findings, Sharon Freitas MD at 09/15/2020 11:45 AM Thank you for letting us participate in the care of this patient. ??If you are a health care provider and have any questions regarding this report, please contact the number below. ??For patients who have questions please contact the health animal care assistant that requested your imaging first. ? Narrative 09/15/2020 11:45 AM EDT EXAMINATION: CT CHEST W CONTRAST CLINICAL HISTORY: Pleural effusion Hx of lymphoma, now with RLL lung abscess and right pleural effusion. s/p pigtail drain and tPA/dornase x4 cycles (stopped due to sanguinous output). ??WBC 28 from 22, eval for undrained abscess/effusion. TECHNIQUE: 3.75mm thick axial contiguous sections were obtained through the chest via helical acquisition after the intravenous administration of 120.0 ml of OMNIPAQUE 350.00 mg/ml. Thin-section reconstructions as well as coronal and sagittal reformatted images were generated. COMPARISON: CT chest dated 09/12/2020 and 09/10/2020. FINDINGS: Pulmonary parenchyma: Centrilobular emphysematous changes, as before. Right middle lobe multilocular fluid collection with several foci of air unchanged from 09/12/2020, at least 7.4 x 4.1 cm (series 3, image 133). ??6 mm nodule in the anterior aspect of the right upper lobe is unchanged (series 3, image 105). Improved aeration/expansion of right lower lobe from decreased pleural collection. New 12 mm groundglass opacity in left upper lobe on series 4 image 28. Airways: The central airways are patent. Compression of medial segmental middle lobe bronchi secondary to the loculated collection. Pleura: Right posterior approach chest tube present. Decreased size of right-sided pleural collection with a residual posteromedial loculated fluid containing few foci of air, 6.6 x 1.9 cm in greatest axial dimension (series 3, image 91). Decreased fluid within the right major fissure. Small left pleural effusion, similar to prior. Lymph nodes:Unchanged 1.0 cm right paratracheal lymph node (series 3, image 92). Unchanged prominent subcarinal lymph nodes. Heart, pericardium, and great vessels: Left-sided MediPort central venous catheter tip terminates in the lower SVC. Coronary artery calcifications are present. The heart is normal in size. The thoracic aorta and central pulmonary arteries are normal in contour and caliber. Other mediastinal structures: No significant findings. Lower neck: No significant findings. Upper abdomen: No significant findings. Body wall soft tissues: Left chest wall MediPort. New subcutaneous emphysema along the right chest wall. Skeletal structures: No acute osseous findings. Unchanged compression deformity at L1. Procedure Note Sharon Freitas MD - 09/15/2020 EXAMINATION: CT CHEST W CONTRAST CLINICAL HISTORY: Pleural effusion Hx of lymphoma, now with RLL lung abscess and right pleural effusion.s/p pigtail drain and tPA/dornase x4 cycles (stopped due to sanguinousoutput). WBC 28 from 22, eval for undrained abscess/effusion. TECHNIQUE: 3.75mm thick axial contiguous sections were obtained throughthe chest via helical acquisition after the intravenous administration of120.0 ml of OMNIPAQUE 350.00 mg/ml. Thin-section reconstructions as well as coronaland sagittal reformatted images were generated. COMPARISON: CT chest dated 09/12/2020 and 09/10/2020. FINDINGS: Pulmonary parenchyma: Centrilobular emphysematous changes, as before.Right middle lobe multilocular fluid collection with several foci of airunchanged from 09/12/2020, at least 7.4 x 4.1 cm (series 3, image 133). 6 mm nodulein the anterior aspect of the right upper lobe is unchanged (series 3, ). Improved aeration/expansion of right lower lobe from decreased pleural collection. New 12 mm groundglass opacity in left upper lobe on series 4image 28. Airways: The central airways are patent. Compression of medial segmentalmiddle lobe bronchi secondary to the loculated collection. Pleura: Right posterior approach chest tube present. Decreased size of right-sided pleural collection with a residual posteromedial loculatedfluid containing few foci of air, 6.6 x 1.9 cm in greatest axial dimension(series 3, image 91). Decreased fluid within the right major fissure. Small leftpleural effusion, similar to prior. Lymph nodes:Unchanged 1.0 cm right paratracheal lymph node (series 3,image 92). Unchanged prominent subcarinal lymph nodes. Heart, pericardium, and great vessels: Left-sided MediPort centralvenous catheter tip terminates in the lower SVC. Coronary artery calcificationsare present. The heart is normal in size. The thoracic aorta and centralpulmonary arteries are normal in contour and caliber. Other mediastinal structures: No significant findings. Lower neck: No significant findings. Upper abdomen: No significant findings. Body wall soft tissues: Left chest wall MediPort. New subcutaneousemphysema along the right chest wall. Skeletal structures: No acute osseous findings. Unchanged compressiondeformity at L1. IMPRESSION 1. Decreased right pleural fluid collection, small residual with air andfluid posteromedially. 2. Right middle lobe abscess is unchanged. 3. Reactive right paratracheal and subcarinal lymph clary enlargement unchanged. Preliminary report signed by: Ugo Martinez at 09/15/2020 11:32 AM I have personally reviewed the image(s) and the resident's interpretationand agree with the findings, Sharon Freitas MD at 09/15/2020 11:45 AM Thank you for letting us participate in the care of this patient. If youare a health care provider and have any questions regarding this report,please contact the number below. For patients who have questions please contactthe health animal care assistant that requested your imaging first. Marko Jordan MD IMG CT ORDERABLES * XR Chest PA & Lateral (Generic) (09/15/2020 5:53 AM EDT) Anatomical Region Laterality Modality Chest N/A Digital Radiogra phy Impressions 09/15/2020 5:58 AM EDT * ??Unchanged small right pleural effusion. * ??Improved right lower lobe airspace opacities. * ??Persistent partial opacification of the right middle lobe. Thank you for letting us participate in the care of this patient. ??If you are a health care provider and have any questions regarding this report, please contact the number below. ??For patients who have questions please contact the health animal care assistant that requested your imaging first. ? Narrative 09/15/2020 5:58 AM EDT EXAMINATION: XR CHEST PA AND LATERAL (GENERIC) CLINICAL HISTORY: s/p tpa/dornase, please eval effusion/ptx/changes TECHNIQUE: PA and lateral views of the chest COMPARISON: Chest x-ray 09/14/2020 and 09/13/2020. FINDINGS: Unchanged position of the left chest Mediport and right inferior pleural drain. Unchanged small right pleural effusion. Improved right lower lobe airspace opacities. Persistent partial opacification of the right middle lobe. No pneumothorax. Unchanged cardiomediastinal silhouette and osseous structures. Unremarkable upper abdomen. Procedure Note Amber Landis MD - 09/15/2020 EXAMINATION: XR CHEST PA AND LATERAL (GENERIC) CLINICAL HISTORY: s/p tpa/dornase, please eval effusion/ptx/changes TECHNIQUE: PA and lateral views of the chest COMPARISON: Chest x-ray 09/14/2020 and 09/13/2020. FINDINGS: Unchanged position of the left chest Mediport and right inferior pleuraldrain. Unchanged small right pleural effusion. Improved right lower lobeairspace opacities. Persistent partial opacification of the right middle lobe. No pneumothorax. Unchanged cardiomediastinal silhouette and osseousstructures. Unremarkable upper abdomen. IMPRESSION * Unchanged small right pleural effusion. * Improved right lower lobe airspace opacities. * Persistent partial opacification of the right middle lobe. Thank you for letting us participate in the care of this patient. If youare a health care provider and have any questions regarding this report,please contact the number below. For patients who have questions please contactthe health animal care assistant that requested your imaging first. Marko Jordan MD IMG DX ORDERABLES * Scan, Peripheral Blood (09/15/2020 3:17 AM EDT) Pathologist [facility] Plat estimate Increased [facility] RBC Morphology Abnormal [facility] Hypochromia Slight [facility] Target Cells 1-5 /HPF [facility] Blood specimen (specimen) 09/15/2020 3:17 AM EDT 09/15/2020 3:22 AM EDT Narrative Resulting Agency Comment Spec In Lab Conor Hong MD HEMATOLOGY ORDERABL ES [facility] [place] [address] * (ABNORMAL) Differential, Automated (09/15/2020 3:17 AM EDT) [facility] Neutrophil % 86.2 % [facility] Neutrophil Absolute 24.33(H) 1.70 - 6.10 x10(3)/mc L [facility] Lymph % 5.7 % [facility] Lymphocytes Abs 1.6 0.9 - 3.2 x10(3)/mc L [facility] Monocyte % 5.5 % [facility] Monocyte Abs 1.6(H) 0.3 - 0.9 x10(3)/[facility] Eos % 1.1 % [facility] Eosinophils Abs 0.3 0.0 - 0.4 x10(3)/[facility] Basophil % 0.2 % [facility] Baso Absolute 0.0 0.0 - 0.1 x10(3)/[facility] Immature Gran % 1.30 % [facility] Comment: Immature granulocytes(IG's)percentage and absolute count will include metamyelocytes, myelocytes, and promyelocytes. Blood smears from CBCs yielding IG's will be scanned manually for concordance. If this scan disagrees with the automated IG or if promyelocytes are noted, a manual differential will be performed. Immature Gran Absolute 0.37(H) 0.00 - 0.04 x10(3)/[facility] Blood specimen (specimen) 09/15/2020 3:17 AM EDT 09/15/2020 3:22 AM EDT Narrative Resulting Agency Comment Spec In Lab Conor Hong MD HEMATOLOGY ORDERABL ES [facility] [place] [address] * (ABNORMAL) Hemogram (09/15/2020 3:17 AM EDT) White Blood Cell 28.2(H) 4.0 - 9.5 x10(3)/[facility] Red Blood Cell 2.92(L) 4.58 - 5.54 x10(6)/[facility] Hemoglobin 9.1(L) 13.7 - 16.5 gm/dL [facility] Hematocrit 28.0(L) 40.5 - 48.5 % [facility] Mean Cell Volume 95.9(H) 82.9 - 93.1 fL [facility] Mean Cell Hemoglobin 31.2 27.5 - 32.1 pg [facility] Mean Cell Hemoglobin Concentration 32.5 32.0 - 35.7 gm/dL [facility] Platelet 602(H) 145 - 357 x10(3)/mc L [facility] RDW Standard Deviation 48.6(H) 36.0 - 45.0 fL [facility] RDW coefficient of variation 13.9(H) 11.4 - 13.8 % [facility] Mean Platelet Volume 8.5 7.6 - 12.9 fL [facility] NRBC% auto 0.0 % [facility] NRBC Absolute 0.000 0.000 - 0.000 x10(3)/mc L [facility] Blood specimen (specimen) 09/15/2020 3:17 AM EDT 09/15/2020 3:22 AM EDT Narrative Resulting Agency Comment Spec In Lab Conor Hong MD HEMATOLOGY ORDERABL ES [facility] [place] [address] * (ABNORMAL) Basic Metabolic Panel (non-fasting) (09/15/2020 3:17 AM EDT) Glucose 122 65 - 199 mg/dL [facility] Comment:Diabetes: >=200 mg/d L plus symptoms Blood Urea Nitrogen 23(H) 10 - 20 mg/dL [facility] Creatinine 0.55(L) 0.80 - 1.50 mg/dL [facility] Sodium 138 135 - 145 mmol/L [facility] Potassium 4.3 3.5 - 5.0 mmol/L [facility] Comment: Please note: ??Patients with WBC >100,000 may have falsely elevated Potassium levels. ??For accurate Potassium quantification in these patients send serum separator tube (gold top) for subsequent determinations. ??Contact the Clinical Chemistry Laboratory if there are any questions. Chloride 105 98 - 107 mmol/L [facility] Carbon Dioxide 25 22 - 31 mmol/L [facility] Anion Gap 8 5 - 15 mmol/L [facility] Calcium 8.0(L) 8.5 - 10.5 mg/dL [facility] Est Glomerular Filtration Rate 116 >=60 mL/min/1. 73 m?? [facility] Comment: This patient? s estimated glomerular filtration rate (eGFR) is between 116 mL/min/1.73 m2 (patients with less muscle mass per kg body weight) and 134 mL/min/1.73 m2 (patients with more muscle mass per kg body weight) as determined by the CKD-EPI equation. Assessment of eGFR is not appropriate when creatinine concentrations are rapidly changing. For clinical decisions where creatinine clearance will affect therapy, a 24-hour urine creatinine clearance may be advised. Assignment of CKD stage 1 - 5 for patients with an eGFR near the transition point between stages may be based on clinical assessment of muscle mass and symptoms in addition to eGFR. Blood specimen (specimen) 09/15/2020 3:17 AM EDT 09/15/2020 3:22 AM EDT Narrative Resulting Agency Comment Spec In Lab Marko Jordan MD CHEMISTRY ORDERABLE S [facility] [place] [address] * Vancomycin, trough (09/14/2020 5:25 PM EDT) Vancomycin, Trough 17.3 mg/L [facility] Comment: Therapeutic range for complicated infections such as bacteremia, endocarditis, osteomyelitis, meningitis, and hospital-acquired pneumonia caused by S. aureus: 15-20 mg/L Therapeutic range for other indications: 10-15 mg/L Toxic: >20 mg/L Reference: Vancomycin Therapeutic Monitoring: Review and Recommendations from the ASHP, IDSA and SIDP Task Force. ??Am J Health-Syst Pharm. 2009; 66:82-98 Blood specimen (specimen) 09/14/2020 5:25 PM EDT 09/14/2020 5:39 PM EDT Narrative Resulting Agency Comment Spec In Lab Marko Jordan MD CHEMISTRY ORDERABLE S [facility] [place] [address] * XR Chest PA & Lateral (Generic) (09/14/2020 9:45 AM EDT) Anatomical Region Laterality Modality Chest N/A Digital Radiogra phy Impressions 09/14/2020 9:57 AM EDT 1. ??Similar position of the right pleural drain with the pigtail along the posterior costophrenic angle. Slight decrease in size of right pleural effusion. No change in fluid tracking along the major and minor fissures. Thank you for letting us participate in the care of this patient. ??If you are a health care provider and have any questions regarding this report, please contact the number below. ??For patients who have questions please contact the health animal care assistant that requested your imaging first. ? Narrative 09/14/2020 9:57 AM EDT EXAMINATION: XR CHEST PA AND LATERAL (GENERIC) CLINICAL HISTORY: s/p tpa/dornase x 4 cycles, please eval ptx/effusion/tube positing (as entered by ordering provider in the order requisition) TECHNIQUE: PA and lateral views of the chest COMPARISON: Chest radiograph 09/13/2020. CT of the chest 09/12/2020. FINDINGS: There is a left chest port with the tip of the catheter projecting at the expected location of the superior cavoatrial junction. There is a right pleural drain in similar position with the pigtail coiled along the posterior costophrenic angle. There is slight interval decrease in size of a small right pleural effusion. Remains fluid projecting along the major and minor fissures. The left lung is clear. Procedure Note Naya Oliver MD - 09/14/2020 EXAMINATION: XR CHEST PA AND LATERAL (GENERIC) CLINICAL HISTORY: s/p tpa/dornase x 4 cycles, please evalptx/effusion/tube positing (as entered by ordering provider in the order requisition) TECHNIQUE: PA and lateral views of the chest COMPARISON: Chest radiograph 09/13/2020. CT of the chest 09/12/2020. FINDINGS: There is a left chest port with the tip of the catheter projecting atthe expected location of the superior cavoatrial junction. There is a right pleural drain in similar position with the pigtail coiledalong the posterior costophrenic angle. There is slight interval decrease insize of a small right pleural effusion. Remains fluid projecting along the major andminor fissures. The left lung is clear. IMPRESSION 1. Similar position of the right pleural drain with the pigtail alongthe posterior costophrenic angle. Slight decrease in size of right pleuraleffusion. No change in fluid tracking along the major and minor fissures. Thank you for letting us participate in the care of this patient. If youare a health care provider and have any questions regarding this report,please contact the number below. For patients who have questions please contactthe health animal care assistant that requested your imaging first. Marko Jordan MD IMG DX ORDERABLES * (ABNORMAL) Differential, Automated (09/14/2020 3:41 AM EDT) Neutrophil % 78.9 % [facility] Neutrophil Absolute 17.25(H) 1.70 - 6.10 x10(3)/mc L [facility] Lymph % 7.9 % [facility] Lymphocytes Abs 1.7 0.9 - 3.2 x10(3)/ L [facility] Monocyte % 8.7 % [facility] Monocyte Abs 1.9(H) 0.3 - 0.9 x10(3)/ L [facility] Eos % 2.3 % [facility] Eosinophils Abs 0.5(H) 0.0 - 0.4 x10(3)/[facility] Basophil % 0.3 % [facility] Baso Absolute 0.1 0.0 - 0.1 x10(3)/[facility] Immature Gran % 1.90 % [facility] Comment: Immature granulocytes(IG's)percentage and absolute count will include metamyelocytes, myelocytes, and promyelocytes. Blood smears from CBCs yielding IG's will be scanned manually for concordance. If this scan disagrees with the automated IG or if promyelocytes are noted, a manual differential will be performed. Immature Gran Absolute 0.41(H) 0.00 - 0.04 x10(3)/[facility] Blood specimen (specimen) 09/14/2020 3:41 AM EDT 09/14/2020 3:49 AM EDT Narrative Resulting Agency Comment Spec In Lab Conor Hong MD HEMATOLOGY ORDERABL ES [facility] [place] [address] * (ABNORMAL) Hemogram (09/14/2020 3:41 AM EDT) White Blood Cell 21.8(H) 4.0 - 9.5 x10(3)/[facility] Red Blood Cell 3.09(L) 4.58 - 5.54 x10(6)/[facility] Hemoglobin 9.6(L) 13.7 - 16.5 gm/dL [facility] Hematocrit 30.6(L) 40.5 - 48.5 % [facility] Mean Cell Volume 99.0(H) 82.9 - 93.1 fL [facility] Mean Cell Hemoglobin 31.1 27.5 - 32.1 pg [facility] Mean Cell Hemoglobin Concentration 31.4(L) 32.0 - 35.7 gm/dL [facility] Platelet 652(H) 145 - 357 x10(3)/mc L [facility] RDW Standard Deviation 50.3(H) 36.0 - 45.0 fL [facility] RDW coefficient of variation 13.9(H) 11.4 - 13.8 % [facility] Mean Platelet Volume 8.7 7.6 - 12.9 [facility] NRBC% auto 0.0 % [facility] NRBC Absolute 0.000 0.000 - 0.000 x10(3)/mc L [facility] Blood specimen (specimen) 09/14/2020 3:41 AM EDT 09/14/2020 3:49 AM EDT Narrative Resulting Agency Comment Spec In Lab Conor Hong MD HEMATOLOGY ORDERABL ES [facility] [place] [address] * (ABNORMAL) Basic Metabolic Panel (non-fasting) (09/14/2020 3:41 AM EDT) Glucose 86 65 - 199 mg/dL [facility] Comment:Diabetes: >=200 mg/d L plus symptoms Blood Urea Nitrogen 19 10 - 20 mg/dL [facility] Creatinine 0.56(L) 0.80 - 1.50 mg/dL [facility] Sodium 138 135 - 145 mmol/L [facility] Potassium 4.5 3.5 - 5.0 mmol/L [facility] Comment: Please note: ??Patients with WBC >100,000 may have falsely elevated Potassium levels. ??For accurate Potassium quantification in these patients send serum separator tube (gold top) for subsequent determinations. ??Contact the Clinical Chemistry Laboratory if there are any questions. Chloride 106 98 - 107 mmol/L [facility] Carbon Dioxide 27 22 - 31 mmol/L [facility] Anion Gap 5 5 - 15 mmol/L [facility] Calcium 7.9(L) 8.5 - 10.5 mg/dL [facility] Est Glomerular Filtration Rate 115 >=60 mL/min/1. 73 m?? [facility] Comment: This patient? s estimated glomerular filtration rate (eGFR) is between 115 mL/min/1.73 m2 (patients with less muscle mass per kg body weight) and 133 mL/min/1.73 m2 (patients with more muscle mass per kg body weight) as determined by the CKD-EPI equation. Assessment of eGFR is not appropriate when creatinine concentrations are rapidly changing. For clinical decisions where creatinine clearance will affect therapy, a 24-hour urine creatinine clearance may be advised. Assignment of CKD stage 1 - 5 for patients with an eGFR near the transition point between stages may be based on clinical assessment of muscle mass and symptoms in addition to eGFR. Blood specimen (specimen) 09/14/2020 3:41 AM EDT 09/14/2020 3:49 AM EDT Narrative Resulting Agency Comment Spec In Lab Marko Jordan MD CHEMISTRY ORDERABLE S [facility] [place] [address] * Vancomycin, trough (09/13/2020 9:42 AM EDT) Vancomycin, Trough 13.3 mg/L [facility] Comment: Therapeutic range for complicated infections such as bacteremia, endocarditis, osteomyelitis, meningitis, and hospital-acquired pneumonia caused by S. aureus: 15-20 mg/L Therapeutic range for other indications: 10-15 mg/L Toxic: >20 mg/L Reference: Vancomycin Therapeutic Monitoring: Review and Recommendations from the ASHP, IDSA and SIDP Task Force. ??Am J Health-Syst [employer]. 2009; 66:82-98 Blood specimen (specimen) 09/13/2020 9:42 AM EDT 09/13/2020 10:06 AM EDT Narrative Resulting Agency Comment Spec In Lab Marko Jordan MD CHEMISTRY ORDERABLE S Performing Organization Address [facility]/ZIP Co de Phone Number [facility] [place] [address] * XR Chest PA & Lateral (Generic) (09/13/2020 6:33 AM EDT) Anatomical Region Laterality Modality Chest N/A Digital Radiogra phy Impressions 09/13/2020 6:41 AM EDT * ??Interval repositioning of the right inferior pigtail pleural drain. * ??Decreased right pleural fluid. * ??Improved aeration of the right lower lung with residual right lower lobe patchy airspace opacities. * ??Persistent near complete opacification of the right middle lobe. * ??Mild central vascular congestion. * ??Interval development of emphysema tracking along the right chest wall in the right lower neck. Thank you for letting us participate in the care of this patient. ??If you are a health care provider and have any questions regarding this report, please contact the number below. ??For patients who have questions please contact the health animal care assistant that requested your imaging first. ? Narrative 09/13/2020 6:41 AM EDT EXAMINATION: XR CHEST PA AND LATERAL (GENERIC) CLINICAL HISTORY: s/p tPA/dornase administration Effusion, PTX, changes, comparison TECHNIQUE: PA and lateral views of the chest COMPARISON: CT chest without contrast 09/12/2020. Chest x-ray 09/12/2020. FINDINGS: Interval repositioning of the right inferior pigtail pleural drain. Left chest port catheter terminates at the superior cavoatrial junction. Decreased right pleural fluid. Improved aeration of the right lower lung. Right lower lobe patchy airspace opacities. Persistent near complete opacification of the right middle lobe. No pneumothorax. Unchanged cardiomediastinal silhouette. Mild central vascular congestion. Unchanged osseous structures. Interval development of emphysema tracking along the right chest wall in the right lower neck. Unremarkable upper abdomen. Procedure Note Amber Landis MD - 09/13/2020 EXAMINATION: XR CHEST PA AND LATERAL (GENERIC) CLINICAL HISTORY: s/p tPA/dornase administration Effusion, PTX, changes, comparison TECHNIQUE: PA and lateral views of the chest COMPARISON: CT chest without contrast 09/12/2020. Chest x-ray 09/12/2020. FINDINGS: Interval repositioning of the right inferior pigtail pleural drain. Leftchest port catheter terminates at the superior cavoatrial junction. Decreased right pleural fluid. Improved aeration of the right lower lung.Right lower lobe patchy airspace opacities. Persistent near completeopacification of the right middle lobe. No pneumothorax. Unchanged cardiomediastinalsilhouette. Mild central vascular congestion. Unchanged osseous structures. Interval development of emphysema tracking along the right chest wall in the rightlower neck. Unremarkable upper abdomen. IMPRESSION * Interval repositioning of the right inferior pigtail pleural drain. * Decreased right pleural fluid. * Improved aeration of the right lower lung with residual right lowerlobe patchy airspace opacities. * Persistent near complete opacification of the right middle lobe. * Mild central vascular congestion. * Interval development of emphysema tracking along the right chest radha the right lower neck. Thank you for letting us participate in the care of this patient. If youare a health care provider and have any questions regarding this report,please contact the number below. For patients who have questions please contactthe health animal care assistant that requested your imaging first. Marko Jordan MD IMG DX ORDERABLES * Scan, Peripheral Blood (09/13/2020 3:30 AM EDT) Plat estimate Increased [facility] RBC Morphology Abnormal [facility] Macrocyte 1-5 /HPF [facility] Blood specimen (specimen) 09/13/2020 3:30 AM EDT 09/13/2020 3:36 AM EDT Narrative Resulting Agency Comment Spec In Lab Conor Hong MD HEMATOLOGY ORDERABL ES [facility] [place] [address] * (ABNORMAL) Differential, Automated (09/13/2020 3:30 AM EDT) Neutrophil % 80.7 % [facility] Neutrophil Absolute 18.53(H) 1.70 - 6.10 x10(3)/mc L [facility] Lymph % 6.7 % [facility] Lymphocytes Abs 1.5 0.9 - 3.2 x10(3)/mc L [facility] Monocyte % 8.4 % [facility] Monocyte Abs 1.9(H) 0.3 - 0.9 x10(3)/mc L [facility] Eos % 1.9 % [facility] Eosinophils Abs 0.4 0.0 - 0.4 x10(3)/mc L [facility] Basophil % 0.3 % [facility] Baso Absolute 0.1 0.0 - 0.1 x10(3)/mc L [facility] Immature Gran % 2.00 % [facility] Comment: Immature granulocytes(IG's)percentage and absolute count will include metamyelocytes, myelocytes, and promyelocytes. Blood smears from CBCs yielding IG's will be scanned manually for concordance. If this scan disagrees with the automated IG or if promyelocytes are noted, a manual differential will be performed. Immature Gran Absolute 0.45(H) 0.00 - 0.04 x10(3)/ L [facility] Blood specimen (specimen) 09/13/2020 3:30 AM EDT 09/13/2020 3:36 AM EDT Narrative Resulting Agency Comment Spec In Lab Conor Hong MD HEMATOLOGY ORDERABL ES [facility] [place] [address] * (ABNORMAL) Hemogram (09/13/2020 3:30 AM EDT) White Blood Cell 23.0(H) 4.0 - 9.5 x10(3)/mc L [facility] Red Blood Cell 3.34(L) 4.58 - 5.54 x10(6)/mc L [facility] Hemoglobin 10.5(L) 13.7 - 16.5 gm/dL [facility] Hematocrit 33.4(L) 40.5 - 48.5 % [facility] Mean Cell Volume 100.0(H) 82.9 - 93.1 [facility] Mean Cell Hemoglobin 31.4 27.5 - 32.1 pg [facility] Mean Cell Hemoglobin Concentration 31.4(L) 32.0 - 35.7 gm/dL [facility] Platelet 674(H) 145 - 357 x10(3)/mc L [facility] RDW Standard Deviation 51.2(H) 36.0 - 45.0 [facility] RDW coefficient of variation 13.7 11.4 - 13.8 % [facility] Mean Platelet Volume 8.7 7.6 - 12.9 [facility] NRBC% auto 0.0 % [facility] NRBC Absolute 0.000 0.000 - 0.000 x10(3)/mc L [facility] Blood specimen (specimen) 09/13/2020 3:30 AM EDT 09/13/2020 3:36 AM EDT Narrative Resulting Agency Comment Spec In Lab Conor Hong MD HEMATOLOGY ORDERABL ES [facility] [place] [address] * (ABNORMAL) Basic Metabolic Panel (non-fasting) (09/13/2020 3:30 AM EDT) Glucose 139 65 - 199 mg/dL [facility] Comment:Diabetes: >=200 mg/d L plus symptoms Blood Urea Nitrogen 20 10 - 20 mg/dL [facility] Creatinine 0.59(L) 0.80 - 1.50 mg/dL [facility] Sodium 139 135 - 145 mmol/L [facility] Potassium 4.1 3.5 - 5.0 mmol/L [facility] Comment: Please note: ??Patients with WBC >100,000 may have falsely elevated Potassium levels. ??For accurate Potassium quantification in these patients send serum separator tube (gold top) for subsequent determinations. ??Contact the Clinical Chemistry Laboratory if there are any questions. Chloride 106 98 - 107 mmol/L [facility] Carbon Dioxide 25 22 - 31 mmol/L [facility] Anion Gap 8 5 - 15 mmol/L [facility] Calcium 8.4(L) 8.5 - 10.5 mg/dL [facility] Est Glomerular Filtration Rate 112 >=60 mL/min/1. 73 m?? [facility] Comment: This patient? s estimated glomerular filtration rate (eGFR) is between 112 mL/min/1.73 m2 (patients with less muscle mass per kg body weight) and 130 mL/min/1.73 m2 (patients with more muscle mass per kg body weight) as determined by the CKD-EPI equation. Assessment of eGFR is not appropriate when creatinine concentrations are rapidly changing. For clinical decisions where creatinine clearance will affect therapy, a 24-hour urine creatinine clearance may be advised. Assignment of CKD stage 1 - 5 for patients with an eGFR near the transition point between stages may be based on clinical assessment of muscle mass and symptoms in addition to eGFR. Blood specimen (specimen) 09/13/2020 3:30 AM EDT 09/13/2020 3:35 AM EDT Narrative Resulting Agency Comment Spec In Lab Marko Jordan MD CHEMISTRY ORDERABLE S [facility] [place] [address] * CT Chest wo Contrast (Generic) (09/12/2020 11:50 AM EDT) Anatomical Region Laterality Modality Chest Computed Tomogra phy Impressions 09/12/2020 12:26 PM EDT A right-sided chest tube has been placed. The right-sided pleural fluid collection is diminished in size. There has been partial reaeration of the right lower lobe. Gas collections within the right-sided pleural fluid indicate an empyema. The increase in gas may be related to the recent tube placement. Thank you for letting us participate in the care of this patient. ??If you are a health care provider and have any questions regarding this report, please contact the number below. ??For patients who have questions please contact the health animal care assistant that requested your imaging first. ? Narrative 09/12/2020 12:26 PM EDT EXAMINATION: CT CHEST WO CONTRAST (GENERIC) CLINICAL HISTORY: Pleural effusion; Pneumonia PTX, effusion, comparison, changes TECHNIQUE: 3.75 mm thick axial contiguous sections were obtained through the chest via helical acquisition without intravenous contrast administration. Thin-section reconstructions as well as coronal and sagittal reformatted images were generated. COMPARISON: Chest radiograph September 12, 2020, Chest CT September 10, 2020 FINDINGS: Pulmonary parenchyma: Centrilobular emphysema is present. Again seen is the right middle lobe opacification containing foci of gas. This appearance has not changed. The previously noted right lower lobe collapse is partially improved. Aeration of the right lower lobe has increased. The spiculated opacity in the anterior aspect of the right lower lobe is unchanged. Airways: There is narrowing and wall thickening of right lower lobe bronchi. Pleura: A right-sided chest tube has now been placed within the pleural fluid collection. The amount of fluid has diminished since the prior study. Foci of gas within this collection have increased. Several air-fluid levels are visible. The small left-sided pleural effusion is unchanged. Mediastinum and lymph nodes: There has been no change in the appearance of the borderline enlarged right lower paratracheal lymph node. No new lymphadenopathy is present. Heart, pericardium, and great vessels: The heart size is normal. Coronary artery calcification is seen. A central venous catheter has its distal tip reaching the distal superior vena cava. Lower neck: No significant findings. Upper abdomen: No significant findings. Body wall soft tissues: A port is present in the left upper anterior chest wall. Skeletal structures: A compression deformity of the L1 vertebral body is seen and is of indeterminate age. Procedure Note Simone Scott MD - 09/12/2020 EXAMINATION: CT CHEST WO CONTRAST (GENERIC) CLINICAL HISTORY: Pleural effusion; Pneumonia PTX, effusion, comparison, changes TECHNIQUE: 3.75 mm thick axial contiguous sections were obtained throughthe chest via helical acquisition without intravenous contrastadministration. Thin-section reconstructions as well as coronal and sagittal reformattedimages were generated. COMPARISON: Chest radiograph September 12, 2020, Chest CT September 10, 2020 FINDINGS: Pulmonary parenchyma: Centrilobular emphysema is present. Again seen isthe right middle lobe opacification containing foci of gas. This appearancehas not changed. The previously noted right lower lobe collapse is partiallyimproved. Aeration of the right lower lobe has increased. The spiculated opacity inthe anterior aspect of the right lower lobe is unchanged. Airways: There is narrowing and wall thickening of right lower lobebronchi. Pleura: A right-sided chest tube has now been placed within the pleuralfluid collection. The amount of fluid has diminished since the prior study. Fociof gas within this collection have increased. Several air-fluid levels arevisible. The small left-sided pleural effusion is unchanged. Mediastinum and lymph nodes: There has been no change in the appearance ofthe borderline enlarged right lower paratracheal lymph node. No newlymphadenopathy is present. Heart, pericardium, and great vessels: The heart size is normal. Coronaryartery calcification is seen. A central venous catheter has its distal tipreaching the distal superior vena cava. Lower neck: No significant findings. Upper abdomen: No significant findings. Body wall soft tissues: A port is present in the left upper anterior chestwall. Skeletal structures: A compression deformity of the L1 vertebral body isseen and is of indeterminate age. IMPRESSION A right-sided chest tube has been placed. The right-sided pleural fluid collection is diminished in size. There has been partial reaeration of theright lower lobe. Gas collections within the right-sided pleural fluid indicatean empyema. The increase in gas may be related to the recent tubeplacement. Thank you for letting us participate in the care of this patient. If youare a health care provider and have any questions regarding this report,please contact the number below. For patients who have questions please contactthe health animal care assistant that requested your imaging first. Marko Jordan MD IMG CT ORDERABLES * XR Chest One View (09/12/2020 1:14 AM EDT) Anatomical Region Laterality Modality Chest N/A Digital Radiogra phy Impressions 09/12/2020 1:36 AM EDT * ??Interval placement of a right inferior approach pleural pigtail catheter * ??Decreased opacification of the right lower lung field, likely a combination of decreased pleural fluid and improved aeration. * ??No definite pneumothorax is evident. Thank you for letting us participate in the care of this patient. ??If you are a health care provider and have any questions regarding this report, please contact the number below. ??For patients who have questions please contact the health animal care assistant that requested your imaging first. ? Narrative 09/12/2020 1:36 AM EDT EXAMINATION: XR CHEST ONE VIEW CLINICAL HISTORY: empyema s/p right pigtail placment TECHNIQUE: 1 view of the chest COMPARISON: CT chest without contrast 09/10/2020. Chest x-ray 09/07/2020. FINDINGS: Left chest port catheter terminates at the superior cavoatrial junction. Interval placement of a right inferior approach pleural pigtail catheter. Decreased opacification of the right lower lung field. No pneumothorax is evident. Left lung field is clear. Unchanged cardiomediastinal silhouette and osseous structures. Unremarkable upper abdomen. Procedure Note Amber Landis MD - 09/12/2020 EXAMINATION: XR CHEST ONE VIEW CLINICAL HISTORY: empyema s/p right pigtail placment TECHNIQUE: 1 view of the chest COMPARISON: CT chest without contrast 09/10/2020. Chest x-ray 09/07/2020. FINDINGS: Left chest port catheter terminates at the superior cavoatrial junction. Interval placement of a right inferior approach pleural pigtailcatheter. Decreased opacification of the right lower lung field. No pneumothoraxis evident. Left lung field is clear. Unchanged cardiomediastinal silhouetteand osseous structures. Unremarkable upper abdomen. IMPRESSION * Interval placement of a right inferior approach pleural pigtailcatheter * Decreased opacification of the right lower lung field, likely acombination of decreased pleural fluid and improved aeration. * No definite pneumothorax is evident. Thank you for letting us participate in the care of this patient. If youare a health care provider and have any questions regarding this report,please contact the number below. For patients who have questions please contactthe health animal care assistant that requested your imaging first. Marko Jordan MD IMG DX ORDERABLES * Anaerobic Culture (09/12/2020 1:03 AM EDT) Anaerobic Culture No anaerobic organisms isolated [facility] Pleural fluid specimen (specimen) 09/12/2020 1:03 AM EDT 09/12/2020 1:21 AM EDT Comment:RIGHT EMPYEMA Narrative Resulting Agency Comment Spec In Lab Rocco Cramer MD MICROBIOLOGY - GENER AL ORDERABLES Performing Organization Address City/[facility]/ZIP Co de Phone Number [facility] [place] [address] * Body Fluid Culture, Aerobic (09/12/2020 1:03 AM EDT) Body Fluid Culture No growth [facility] Gram Stain Many Neutrophils seen No microorganisms seen. [facility] Pleural fluid specimen (specimen) 09/12/2020 1:03 AM EDT 09/12/2020 1:21 AM EDT Comment:RIGHT EMPYEMA Narrative Resulting Agency Comment Spec In Lab Rocco Cramer MD MICROBIOLOGY - GENER AL ORDERABLES Performing Organization Address City/[facility]/ZIP Co de Phone Number [facility] [place] [address] * Triglyceride Level Body Fluid Pleural, Right (09/12/2020 12:45 AM EDT) Triglyceride, Fluid 30 mg/dL [facility] Comment: No reference range is available for the specimen type submitted. ??The performance of this assay for the submitted type has not been validated and results should be interpreted accordingly and with regard to the patient's clinical status. Trig, Fld Type Pleural, Right [facility] Pleural fluid specimen (specimen) 09/12/2020 12:45 AM EDT 09/12/2020 12:55 AM EDT Narrative Resulting Agency Comment Spec In Lab Debbie Salgado MD BODY FLUIDS AND STOO LS ORDERABLES Performing Organization Address [facility] de Phone Number [facility] [place] [address] * Protein Level Body Fluid Pleural, Right (09/12/2020 12:45 AM EDT) Protein, Fluid 3.4 gm/dL [facility] Comment: There is no reference range available for the specimen type submitted. For determination of transudative vs. exudative pleural effusions: Transudates: Pleural Total Protein/Serum Total Protein <0.5 g/dL. Exudates: Pleural Total Protein/Serum Total Protein >0.5 g/dL. Prot, Fld Type Pleural, Right [facility] Pleural fluid specimen (specimen) 09/12/2020 12:45 AM EDT 09/12/2020 12:55 AM EDT Narrative Resulting Agency Comment Spec In Lab Debbie Salgado MD BODY FLUIDS AND STOO LS ORDERABLES Performing Organization Address [facility] de Phone Number [facility] [place] [address] * Cell Count Body Fluid Pleural Fluid (09/12/2020 12:45 AM EDT) Body Fluid Source Pleural Fl [facility]3] LABORATORY Color, Fld Yellow [facility] Appearance, Fld Cloudy [facility] WBC Count, Fld 3,460 /mcl [facility] Comment: Guideline listed below apply to all body fluids. When Body Fluid WBC count is greater than Zero, a smear is made and scanned. All scan information is correlated with numeric results prior to being released to patients chart. The reference interval(s) and other method performance specifications have not been established for this body fluid. The test result must be integrated into the clinical context for interpretation. Polymorphonuclear cells BF % 96 % [facility] Comment: Polymorphonuclear cell percent and absolute values may contain Neutrophils, Eosinophils, and Basophils. Body fluid smear will be scanned manually for concordance. Mononuclear cells BF % 4 % [facility] Comment: Mononuclear cell percent and absolute values may contain Lymphocytes and Monocytes. Body fluid smear will be scanned manually for concordance. Polymorphonuclear cells BF ABS 3,307 /[facility] Comment: Polymorphonuclear cell percent and absolute values may contain Neutrophils, Eosinophils, and Basophils. Body fluid smear will be scanned manually for concordance. Mononuclear cells BF ABS 153 /[facility] Comment: Mononuclear cell percent and absolute values may contain Lymphocytes and Monocytes. Body fluid smear will be scanned manually for concordance. Pleural fluid specimen (specimen) 09/12/2020 12:45 AM EDT 09/12/2020 12:55 AM EDT Narrative Resulting Agency Comment Spec In Lab Debbie Salgado MD BODY FLUIDS AND STOO LS ORDERABLES [facility] [place] [address] * COVID-19 PCR (09/11/2020 10:30 PM EDT) SARS-CoV-2 RNA (Rapid) Not Detected Not Detected [facility] Comment: This result should be interpreted in combination with the clinical observations, patient history and epidemiological information. For testing of asymptomatic individuals, assay performance characteristics and clinical utility have not been evaluated. Testing for SARS-CoV-2 (Severe acute respiratory syndrome coronavirus 2, formerly known as 2019 novel coronavirus or 2019-nCoV) to aid in the diagnosis of COVID-19 is performed using the Simplexa COVID-19 Direct Assay by [employer] as authorized by the FDA issued Emergency Use Authorization (EUA). This assay is intended for In-vitro Diagnostic (IVD) use with nasopharyngeal swabs collected from individuals meeting the CDC criteria for testing. The assay is performed based on the instructions for use and additional guidance provided by the FDA. Testing is performed in the Microbiology Laboratory within the Department of Pathology and Laboratory Medicine at [facility], certified under the Clinical Laboratory Improvement Amendments of 1988 (CLIA), 42 U.S.C. section 263a, to perform high complexity tests. Assay performance has been verified according to clinical laboratory regulatory requirements. Test results are provided above. A result of Not Detected indicates that the viral RNA target is not present but does not preclude SARS-CoV-2 infection. False negative results may occur if a specimen is improperly collected, transported or handled; if amplification inhibitors are present; or if inadequate numbers of viral particles are present in the specimen. A result of Detected suggests a current or recent infection and the patient is presumed to be infected. Positive and negative predictive values for this test are highly dependent on disease prevalence. A result of Invalid indicates the inability to conclusively determine the presence or absence of SARS-CoV-2 RNA in the sample which can be due to a variety of factors. Recollection is recommended in the case of an invalid result. CDC COVID-19 criteria for testing on human specimens and clinical management guidance information are available at the CDC Coronavirus Disease 2019 (COVID-19) webpage under Information for Healthcare Professionals (https://www.cdc.gov/coronavirus/2019-ncov/hcp/index.html). Additional information about this and other EUA tests can be found in provider and patient fact sheets at the following FDA website: https://www.fda.gov/medical-devices/chuplhiwysh-tcoyyrv-2202-blheh-57-ammrvgdgc- use-a flaqetbvfivmk-totfzlz-zwwauty/vqghf-enticqwiptc-yakw SARS-CoV-2 Source [employer] Swab MA [facility]3] LABORATORY Nasopharyngeal swab (specimen) 09/11/2020 10:30 PM EDT 09/11/2020 10:38 PM EDT Comment:Symptoms->Surveillan ce Narrative Resulting Agency Comment Spec In Lab Debbie Salgado MD MICROBIOLOGY - GENER AL ORDERABLES [facility] [place] [address] * (ABNORMAL) Prothrombin Time (09/11/2020 8:27 PM EDT) Prothrombin Time 14.1(H) 9.4 - 12.5 sec [facility] International Normalization Ratio 1.2 [facility] Comment: An INR <2.0 indicates adequate procoagulant activity for hemostasis in most patients without underlying bleeding disorders, though the INR may not adequately reflect hemostatic capacity in patients with liver disease and synthetic impairment. The recommended target INR range for therapeutic anticoagulation is 2.0 ? 3.0 for most applications, though lower and higher ranges may be appropriate depending on clinical circumstances. Blood specimen (specimen) 09/11/2020 8:27 PM EDT 09/11/2020 8:32 PM EDT Narrative Resulting Agency Comment Spec In Lab Debbie Salgado MD HEMATOLOGY ORDERABLE S Performing Organization Address [facility] Co de Phone Number [facility] [place] [address] * APTT (09/11/2020 8:27 PM EDT) Partial Thromboplastin Time 32 25 - 37 sec [facility] Comment: The PTT is NOT appropriate for heparin monitoring. Use the Anti-Xa level for heparin monitoring (HEP UFH) or LMWH monitoring (HEP LMW). A PTT less than 37 seconds generally indicates adequate hemostasis. Blood specimen (specimen) 09/11/2020 8:27 PM EDT 09/11/2020 8:32 PM EDT Narrative Resulting Agency Comment Spec In Lab Debbie Salgado MD HEMATOLOGY ORDERABLE S Performing Organization Address City/[facility]/ZIP Co de Phone Number [facility] [place] [address] * Lactate Dehydrogenase (09/11/2020 8:07 PM EDT) Lactate Dehydrogenase 139 110 - 220 unit/L [facility] Blood specimen (specimen) 09/11/2020 8:07 PM EDT 09/11/2020 8:11 PM EDT Narrative Resulting Agency Comment Spec In Lab Debbie Salgado MD CHEMISTRY ORDERABLES Performing Organization Address City/[facility]/ZIP Co de Phone Number [facility] [place] [address] * (ABNORMAL) CRP, acute inflammation (09/11/2020 8:07 PM EDT) C-Reactive Protein >300.0(H) <=4.9 mg/L [facility] Blood specimen (specimen) 09/11/2020 8:07 PM EDT 09/11/2020 8:11 PM EDT Narrative Resulting Agency Comment Spec In Lab Debbie Salgado MD CHEMISTRY ORDERABLES Performing Organization Address [facility] Co de Phone Number [facility] [place] [address] * (ABNORMAL) Prealbumin (09/11/2020 8:07 PM EDT) Prealbumin 3(L) 20 - 40 mg/dL [facility] Comment: Prealbumin levels are generally lower in the pediatric population; adult concentrations are usually attained near puberty. Blood specimen (specimen) 09/11/2020 8:07 PM EDT 09/11/2020 8:11 PM EDT Narrative Resulting Agency Comment Spec In Lab Debbie Salgado MD CHEMISTRY ORDERABLES Performing Organization Address City/[facility]/ZIP Co de Phone Number [facility] [place] [address] * (ABNORMAL) Phosphorus (09/11/2020 8:07 PM EDT) Phosphorus 5.0(H) 2.5 - 4.5 mg/dL [facility] Blood specimen (specimen) 09/11/2020 8:07 PM EDT 09/11/2020 8:11 PM EDT Narrative Resulting Agency Comment Spec In Lab Debbie Salgado MD CHEMISTRY ORDERABLES Performing Organization Address City/[facility]/ZIP Co de Phone Number [facility] [place] [address] * Magnesium (09/11/2020 8:07 PM EDT) Magnesium 0.89 0.69 - 1.07 mmol/L [facility] Blood specimen (specimen) 09/11/2020 8:07 PM EDT 09/11/2020 8:11 PM EDT Narrative Resulting Agency Comment Spec In Lab Debbie Salgado MD CHEMISTRY ORDERABLES Performing Organization Address [facility] Co de Phone Number [facility] [place] [address] * (ABNORMAL) Comprehensive metabolic panel (non-fasting) (09/11/2020 8:07 PM EDT) Pathologist [facility] Glucose 110 65 - 199 mg/dL [facility] Comment:Diabetes: >=200 mg/d L plus symptoms Blood Urea Nitrogen 14 10 - 20 mg/dL [facility] Creatinine 0.49(L) 0.80 - 1.50 mg/dL [facility] Sodium 138 135 - 145 mmol/L [facility] Potassium 4.6 3.5 - 5.0 mmol/L [facility] Comment: Please note: ??Patients with WBC >100,000 may have falsely elevated Potassium levels. ??For accurate Potassium quantification in these patients send serum separator tube (gold top) for subsequent determinations. ??Contact the Clinical Chemistry Laboratory if there are any questions. Chloride 100 98 - 107 mmol/L [facility] Carbon Dioxide 29 22 - 31 mmol/L [facility] Anion Gap 9 5 - 15 mmol/L [facility] Calcium 8.8 8.5 - 10.5 mg/dL [facility] Protein, Total 5.9(L) 6.1 - 8.0 gm/dL [facility] Albumin 2.2(L) 3.2 - 5.2 gm/dL [facility] Aspartate Aminotransferase 57(H) 0 - 39 unit/L [facility] Alanine Aminotransferase 82(H) 0 - 55 unit/L [facility] Alkaline Phosphatase 387(H) 40 - 130 unit/L [facility] Bilirubin, Total 0.3 0.2 - 1.3 mg/dL [facility] Est Glomerular Filtration Rate 121 >=60 mL/min/1. 73 m?? [facility] Comment: This patient? s estimated glomerular filtration rate (eGFR) is between 121 mL/min/1.73 m2 (patients with less muscle mass per kg body weight) and 141 mL/min/1.73 m2 (patients with more muscle mass per kg body weight) as determined by the CKD-EPI equation. Assessment of eGFR is not appropriate when creatinine concentrations are rapidly changing. For clinical decisions where creatinine clearance will affect therapy, a 24-hour urine creatinine clearance may be advised. Assignment of CKD stage 1 - 5 for patients with an eGFR near the transition point between stages may be based on clinical assessment of muscle mass and symptoms in addition to eGFR. Blood specimen (specimen) 09/11/2020 8:07 PM EDT 09/11/2020 8:11 PM EDT Narrative Resulting Agency Comment Spec In Lab Debbie Salgado MD CHEMISTRY ORDERABLES [facility] [place] [address] * (ABNORMAL) Hemogram (09/11/2020 8:07 PM EDT) White Blood Cell 27.6(H) 4.0 - 9.5 x10(3)/mc L [facility] Red Blood Cell 3.12(L) 4.58 - 5.54 x10(6)/mc L [facility] Hemoglobin 9.8(L) 13.7 - 16.5 gm/dL [facility] Hematocrit 30.2(L) 40.5 - 48.5 % [facility] Mean Cell Volume 96.8(H) 82.9 - 93.1 fL [facility] Mean Cell Hemoglobin 31.4 27.5 - 32.1 pg [facility] Mean Cell Hemoglobin Concentration 32.5 32.0 - 35.7 gm/dL [facility] Platelet 662(H) 145 - 357 x10(3)/mc L [facility] RDW Standard Deviation 48.5(H) 36.0 - 45.0 fL [facility] RDW coefficient of variation 13.5 11.4 - 13.8 % [facility] Mean Platelet Volume 8.7 7.6 - 12.9 [facility] LABORATORY NRBC% auto 0.0 % [facility] NRBC Absolute 0.000 0.000 - 0.000 x10(3)/mc L [facility] Blood specimen (specimen) 09/11/2020 8:07 PM EDT 09/11/2020 8:11 PM EDT Narrative Resulting Agency Comment Spec In Lab Debbie Salgado MD HEMATOLOGY ORDERABLE S [facility] [place] [address] * Request For 2nd Read CT Chest [...] who have questions please contact the health animal care assistant that requested your imaging first. ? Narrative 09/11/2020 7:59 PM EDT EXAMINATION: REQUEST FOR 2ND READ CT CHEST CLINICAL HISTORY: right sided empyema?; Sending Institution [facility]; Date of exam 20200910; I believe a [...] CLINICAL HISTORY: right sided empyema?; Sending Institution [facility]; Dateof exam 20200910; I believe a reinterpretation [...] in the right lower lung (series 9, [id number]) is unchanged. The right lower lobe is [...] patients who have questions please contactthe health animal care assistant that requested your imaging first. Marko Jordan MD [facility] ORDERABLES * Film Library- Storage Only CT Chest (09/07/2020 12:05 AM EDT) Narrative [facility] - 09/11/2020 7:36 PM EDT This exam is auto-finalizing. It's purpose is for storage only. Authorizing Provider Result Ester KLINE FILM LIBRARY OR DERABLES Performing Organization Address [facility] Phone Number [place], [place] * Film Library- Storage Only DX Chest (09/07/2020 12:00 AM EDT) Narrative [facility] 09/11/2020 7:34 PM EDT This exam is auto-finalizing. It's purpose is for storage only. Authorizing Provider Result Ester KLINE FILM LIBRARY OR DERABLES Performing Organization Address [facility] de Phone Number [place], [place] documented in this encounter Visit Diagnoses Diagnosis Lobar pneumonia Pneumococcal pneumonia (streptococcus pneumoniae pneumonia) Empyema Empyema without mention of fistula Empyema Empyema without mention of fistula Severe protein-calorie malnutrition Other severe protein-calorie malnutrition Empyema Empyema without mention of fistula documented in this encounter Admitting Diagnoses Diagnosis Empyema Empyema without mention of fistula documented in this encounter Administered Medications Inactive Administered Medications - up to 3 most recent administrations Medication Order MAR Action Action Date Dose Rate Site acetaminophen (Tylenol) tablet 650 mg 650 mg, Oral, EVERY 6 HOURS SCHEDULED, First dose on Wed09/11/20 at 2054, Until Discontinued Given 09/12/2020 1:26 PM EDT 650 mg Given 09/12/2020 5:29 AM EDT 650 mg Given 09/12/2020 1:45 AM EDT 650 mg acetaminophen (Tylenol) tablet 975 mg 975 mg, Oral, EVERY 6 HOURS SCHEDULED, First dose (after last modification) on Wed09/12/20 at 1800, Until Discontinued Given 09/17/2020 12:26 PM EDT 975 mg Given 09/17/2020 5:35 AM EDT 975 mg Given 09/16/2020 11:37 PM EDT 975 mg albuteroL (PROVENTIL) nebulizer solution 2.5 mg 2.5 mg, Nebulization, EVERY 4 HOURS PRN, Starting on Wed09/12/20 at 0748, Until Wed09/17/20 at 1950, Wheezing, Routine alteplase (Cathflo) 10 mg in sodium chloride 0.9% 30 mL for intrapleural instillation 10 mg, Alternative Route- Specify in Admin Instructions, EVERY 12 HOURS, 6 doses, First dose on Wed09/12/20 at 1400, Last dose on Wed09/15/20 at 0200, Administration is limited to physicians, physician assistants and nurse practitioners. Intrapleural. Administer alteplase via chest tube, then clamp chest tube. Allow alteplase to dwell in chest tube for 1 hour. Unclamp chest tube and allow at least 2 hours of draining, with or without suction., Please specify the medical team approving this medication: Thoracic Surgery, Please specify the TEAM pager of the group who is administering this medication: [phone], Please indicate the name & specialty of the Attending Provider who authorized the use of this medication: Dr. Marko Jordan MD Thoracic Surgery Given 09/14/2020 1:44 AM EDT 10 mg Given 09/13/2020 2:44 PM EDT 10 mg Given 09/13/2020 1:49 AM EDT 10 mg alteplase (Cathflo) 10 mg in sodium chloride 0.9% 30 mL for intrapleural instillation 10 mg, Alternative Route- Specify in Admin Instructions, EVERY 12 HOURS, 2 doses, First dose on Wed09/16/20 at 1500, Last dose on Wed09/17/20 at 0300, Administration is limited to physicians, physician assistants and nurse practitioners. Intrapleural. Administer alteplase via chest tube, then clamp chest tube. Allow alteplase to dwell in chest tube for 1 hour. Unclamp chest tube and allow at least 2 hours of draining, with or without suction., Please specify the medical team approving this medication: Thoracic Surgery, Please specify the TEAM pager of the group who is administering this medication: [phone], Please indicate the name & specialty of the Attending Provider who authorized the use of this medication: Marko Jordan MD Given 09/16/2020 3:23 PM EDT 10 mg bisacodyL (Dulcolax) suppository 10 mg 10 mg, Rectal, DAILY PRN, Starting on 09/14/20 at 2358, Until Wed09/17/20 at 1950, Constipation, Routine Given 09/15/2020 12:07 AM EDT 10 mg cyclobenzaprine (Flexeril) tablet 10 mg 10 mg, Oral, 3 TIMES DAILY PRN, Starting on [place] 09/12/20 at 1520, Until Wed09/17/20 at 1950, Muscle spasms, Routine Given 09/17/2020 12:26 PM EDT 10 mg Given 09/17/2020 5:35 AM EDT 10 mg Given 09/16/2020 8:12 PM EDT 10 mg dextromethorphan (Robitussin) capsule 15 mg 15 mg, Oral, EVERY 6 HOURS SCHEDULED, First dose on Wed09/13/20 at 1315, Until Discontinued, Routine Given 09/17/2020 12:26 PM EDT 15 mg Given 09/17/2020 5:35 AM EDT 15 mg Given 09/16/2020 11:37 PM EDT 15 mg docusate sodium (Colace) capsule 100 mg 100 mg, Oral, 2 TIMES DAILY, First dose on Wed09/13/20 at 0900, Until Discontinued, Routine Given 09/17/2020 10:05 AM EDT 100 mg Given 09/16/2020 8:12 PM EDT 100 mg Given 09/16/2020 8:56 AM EDT 100 mg dornase alpha (PULMOZYME) 5 mg in sodium chloride 0.9% 30 mL for intrapleural instillation 5 mg, Alternative Route- Specify in Admin Instructions, EVERY 12 HOURS, 6 doses, First dose on [place] 09/12/20 at 1700, Last dose on [place] 09/15/20 at 0500, Administration is limited to physicians, physician assistants and nurse practitioners.. Intrapleural. Wait until chest tube has drained for 2 hours after alteplase administration. Administer Dornase via chest tube, then clamp chest tube. Allow Dornase to dwell in chest tube for 1 hour. Unclamp chest tube and allow at least 2 hours of draining, with or without suction., Please specify the medical team approving this medication: Thoracic Surgery, Please specify the TEAM pager of the group who is administering this medication: [phone], Please indicate the name & specialty of the Attending Provider who authorized the use of this medication: Dr. Marko Jordan MD Thoracic Surgery Given 09/14/2020 4:57 AM EDT 5 mg Given 09/13/2020 5:13 PM EDT 5 mg Given 09/13/2020 4:46 AM EDT [address] (Cymbalta) capsule 60 mg 60 mg, Oral, DAILY, First dose on [place] 09/12/20 at 0900, Until Discontinued, Routine Given 09/17/2020 10:04 AM EDT 60 mg Given 09/16/2020 8:56 AM EDT 60 mg Given 09/15/2020 8:56 AM EDT 60 mg enoxaparin (Lovenox) (40 mg/0.4 mL) subcutaneous injection 40 mg 40 mg, Subcutaneous, NIGHTLY, First dose on [place] 09/12/20 at 2100, Until Discontinued, Routine Given 09/16/2020 8:10 PM EDT 40 mg Given 09/15/2020 8:57 PM EDT 40 mg Given 09/13/2020 8:34 PM EDT 40 mg famotidine (Pepcid) tablet 40 mg 40 mg, Oral, NIGHTLY, First dose on [place] 09/12/20 at 2100, Until Discontinued, Routine Given 09/16/2020 8:10 PM EDT 40 mg Given 09/15/2020 8:57 PM EDT 40 mg Given 09/14/2020 9:31 PM EDT 40 mg fentaNYL (pf) (50 mcg/mL) multi-dose injection 25-50 mcg 25-50 mcg, Intravenous, EVERY 3 MIN PRN, Starting on Wed09/16/20 at 1017, Until Wed09/16/20 at 1250, Pain, per unit protocol, - Start dose 50 mcg (reduce dose to 25 mcg if history of sedation sensitivity). - Titration dose 25-50 mcg IV, (based on patient response) every 3 minutes PRN, to maintain procedural pain less than 2 per pain Scale. Maximum dose: 50 mcg/dose, 250 mcg/hour For use in Interventional Radiology (IR) only for procedural sedation with direct provider supervision and verbal order., Angio/IR (Day of Procedure), Routine Given 09/16/2020 12:1 9 PM EDT 25 mcg Given 09/16/2020 12:05 PM EDT 50 mcg Given 09/16/2020 12:02 PM EDT 25 mcg heparin (pf) (porcine) (100 units/mL) flush 5 mL syringe 500 Units 500 Units (5 mL), Intravenous, DAILY PRN, 1 dose, Starting on Wed09/17/20 at 1532, Until Wed09/17/20 at 1550, Line Care, Terminal Flush for de-accessing of Implantable Port, Routine Given 09/17/2020 3:50 PM EDT 500 Units Impl anted Port HYDROmorphone (Dilaudid) (1 mg/mL) injection syringe 1 mg 1 mg, Intravenous, ONCE, 1 dose, On Wed09/11/20 at 2310, Give 0.5mg IV first. If not somnolent after 15 minutes may administer the other 0.5mg, Routine Given 09/11/2020 11:17 PM EDT 1 mg HYDROmorphone (Dilaudid) tablet 2 mg 2 mg, Oral, EVERY 4 HOURS PRN, Starting on [place] 09/12/20 at 1305, Until Wed09/13/20 at 0753, Pain, Routine Given 09/13/2020 6:44 AM EDT 2 mg Given 09/13/2020 2:51 AM EDT 2 mg Given 09/12/2020 10:37 PM EDT 2 mg HYDROmorphone (Dilaudid) tablet 2 mg 2 mg, Oral, EVERY 4 HOURS PRN, Starting on Wed09/13/20 at 0752, Until Wed09/17/20 at 1950, Pain, for moderate pain (5-7), May give an additional 2 mg once if pain not relieved in 30-60 minutes., Routine Given 09/15/2020 9:09 PM EDT 2 mg Given 09/14/2020 9:31 PM EDT 2 mg Given 09/13/2020 9:49 PM EDT 2 mg HYDROmorphone (Dilaudid) tablet 2 mg 2 mg, Oral, ONCE, 1 dose, On Wed09/15/20 at 1830, Routine Given 09/15/2020 5:43 PM EDT 2 mg HYDROmorphone (Dilaudid) tablet 4 mg 4 mg, Oral, EVERY 4 HOURS PRN, Starting on Wed09/13/20 at 0752, Until Wed09/17/20 at 1950, Pain, for Severe pain (8-10), May give an additional 2 mg once if pain not relieved in 30-60 minutes., Routine Given 09/17/2020 2:02 PM EDT 4 mg Given 09/17/2020 10:05 AM EDT 4 mg Given 09/17/2020 5:35 AM EDT 4 mg HYDROmorphone (Dilaudid) tablet 4 mg 4 mg, Oral, ONCE, 1 dose, On Wed09/16/20 at 1345, Routine Given 09/16/2020 1:25 PM EDT 4 mg iohexoL (Omnipaque) (350 mg/mL) injection solution 0-200 mL 0-200 mL, Intravenous, ONCE PRN, 1 dose, Starting on Wed09/15/20 at 1035, Until Wed09/15/20 at 1035, Per Protocol, Warning Vesicant/Irritant Medication , Radiology Contrast, Routine Given 09/15/2020 10:35 AM EDT 60 mLs ipratropium-albuteroL (DUONEB) 0.5 mg-3 mg(2.5 mg base)/3 mL nebulizer solution 3 mL 3 mL, Nebulization, EVERY 6 HOURS, First dose on Wed09/12/20 at 1615, Until Discontinued, Routine Given 09/17/2020 10:08 AM EDT 3 mLs Given 09/17/2020 5:34 AM EDT 3 mLs Given 09/16/2020 4:47 PM EDT 3 mLs ketorolac (Toradol) (15 mg/mL) injection 15 mg 15 mg, Intravenous, EVERY 6 HOURS SCHEDULED, 20 doses, First dose on Wed09/11/20 at 2200, Last dose on Wed09/16/20 at 1800, Routine Given 09/16/2020 5:59 PM EDT 15 mg Given 09/16/2020 1:24 PM EDT 15 mg Given 09/16/2020 6:12 AM EDT 15 mg lamoTRIgine (LaMICtal) tablet 100 mg 100 mg, Oral, 2 TIMES DAILY, First dose on Wed09/12/20 at 0900, Until Discontinued, Routine Given 09/17/2020 10:06 AM EDT 100 mg Given 09/16/2020 8:13 PM EDT 100 mg Given 09/16/2020 8:55 AM EDT 100 mg lidocaine (Lidoderm) 5% topical patch 3 patch 3 patch, Transdermal, EVERY 24 HOURS, First dose on Wed09/12/20 at 0315, Until Discontinued, Apply patch(es) for 12 hours, and then remove for 12 hours., Routine Patch Applied 09/17/2020 10:08 AM EDT 3 patches 12- Chest (Right) Patch Applied 09/15/2020 8:55 AM EDT 3 patches 14- Abdomen (Right) Patch Applied 09/14/2020 8:22 AM EDT 3 patches 12- Chest (Right) lidocaine (Lidoderm) topical patch REMOVAL Transdermal, EVERY 24 HOURS, First dose on Wed09/12/20 at 1430, Until Discontinued, Remove lidocaine 5% patch lidocaine (Xylocaine) 1% (10 mg/mL) injection 10 mg 10 mg, Subcutaneous, ONCE, 1 dose, On Wed09/16/20 at 1115, For use in Interventional Radiology (IR) only for procedure with direct provider supervision and verbal order., Angio/IR (Day of Procedure), Routine Given 09/16/2020 11:5 5 AM EDT 10 mg lidocaine (Xylocaine) 1% (10 mg/mL) injection 200 mg 200 mg (20 mL), Subcutaneous, ONCE, 1 dose, On Wed09/11/20 at 2310, Routine Given 09/11/2020 11:10 PM EDT 200 mg LORazepam (Ativan) (2 mg/mL) injection 0.5 mg 0.5 mg, Intravenous, ONCE, 1 dose, On Wed09/15/20 at 0915, Routine Given 09/15/2020 8:56 AM EDT 0.5 mg LORazepam (Ativan) tablet 0.5 mg 0.5 mg, Oral, EVERY 8 HOURS PRN, Starting on Wed09/15/20 at 1508, Until Wed09/17/20 at 1950, Anxiety, Routine Given 09/17/2020 5:36 AM EDT 0.5 mg Given 09/16/2020 4:47 PM EDT 0.5 mg Given 09/16/2020 8:56 AM EDT 0.5 mg melatonin tablet 6 mg 6 mg, Oral, NIGHTLY, First dose on [facility] 09/12/20 at 2100, Until Discontinued, Routine Given 09/16/2020 8:10 PM EDT 6 mg Given 09/15/2020 8:57 PM EDT 6 mg Given 09/14/2020 9:31 PM EDT 6 mg methylphenidate (Ritalin) tablet 20 mg 20 mg, Oral, 2 TIMES DAILY BEFORE MEALS, First dose on [place] 09/12/20 at 0845, Until Discontinued, Routine Given 09/17/2020 3:44 PM EDT 20 mg Given 09/17/2020 7:48 AM EDT 20 mg Given 09/16/2020 8:08 AM EDT 20 mg mometasone (ASMANEX) aerosol 1 puff 1 puff (220 mcg), Inhalation, NIGHTLY, First dose on [facility] 09/12/20 at 2100, Until Discontinued, Routine, Does the patient have the inspiratory effort to support a dry powder inhaler? Yes Given 09/17/2020 10:07 AM EDT 1 puff Given 09/16/2020 8:15 PM EDT 1 puff Given 09/15/2020 9:03 PM EDT 1 puff nicotine (NICODERM CQ) 21 mg/24 hr patch 21 mg 21 mg (1 patch), Transdermal, DAILY, First dose on Wed09/12/20 at 0900, Until Discontinued, Apply new patch to nonhairy, clean, dry skin on the upper body or upper outer arm; each patch should be applied to a different site , Routine Patch Applied 09/17/2020 10:08 AM EDT 21 mg 10- Arm Upper (Right) Patch Applied 09/16/2020 8:54 AM EDT 21 mg 10- Arm Upper (Right) Patch Applied 09/15/2020 8:55 AM EDT 21 mg 09- Arm Upper (Left) nicotine (NICODERM CQ) 21 mg/24 hr patch Patch Removal Transdermal, DAILY, First dose on Wed09/13/20 at 0800, Until Discontinued, Remove nicotine 21 mg/24 hr patch nicotine (NICODERM CQ) 21 mg/24 hr patch Patch Verification Transdermal, 2 TIMES DAILY, First dose on Wed09/12/20 at 2000, Until Discontinued, Verify nicotine 21 mg/24 hr patch ondansetron ODT (Zofran-ODT) disintegrating tablet 8 mg 8 mg, Oral, EVERY 8 HOURS PRN, Starting on Wed09/12/20 at 0755, Until Wed09/17/20 at 1950, Nausea, Routine oxyCODONE (Roxicodone) tablet 5 mg 5 mg, Oral, ONCE, 1 dose, On Wed09/11/20 at 1932, STAT Given 09/11/2020 7:35 PM EDT 5 mg oxyCODONE (Roxicodone) tablet 5 mg 5 mg, Oral, EVERY 4 HOURS PRN, Starting on Wed09/11/20 at 2051, Until Wed09/12/20 at 0139, Pain, Routine Given 09/11/2020 10:48 PM EDT 5 mg oxyCODONE (Roxicodone) tablet 5 mg 5 mg, Oral, EVERY 4 HOURS PRN, Starting on Wed09/12/20 at 0137, Until Wed09/12/20 at 1306, Pain, Routine Given 09/12/2020 10:43 AM EDT 5 mg Given 09/12/2020 6:01 AM EDT 5 mg Given 09/12/2020 2:00 AM EDT 5 mg pantoprazole (Protonix) injection 40 mg 40 mg, Intravenous, DAILY, First dose on Wed09/12/20 at 0900, Until Discontinued Given 09/17/2020 10:08 AM EDT 40 mg Given 09/16/2020 8:54 AM EDT 40 mg Given 09/15/2020 8:55 AM EDT 40 mg piperacillin-tazobactam (Zosyn) 3.375 g vial attach to sodium chloride 0.9% 50 mL Mini-Bag Plus 3.375 g, Intravenous, EVERY 8 HOURS SCHEDULED, First dose on Wed09/11/20 at 2058, Until Discontinued, Administer over 4 Hours, Warning Vesicant/Irritant Medication Do not administer or Y-site with lactated ringers., Indication for (Active or Suspected): Pneumonia (Community) New Bag 09/17/2020 10:08 AM EDT 3.375 g 12.5 mL/hr New Bag 09/17/2020 1:33 AM EDT 3.375 g 12.5 mL/hr New Bag 09/16/2020 4:45 PM EDT 3.375 g 12.5 mL/hr polyethylene glycoL (Miralax) packet 17 g 17 g, Oral, DAILY, First dose on Wed09/13/20 at 0900, Until Discontinued, Routine Given 09/17/2020 10:08 AM EDT 17 g Given 09/16/2020 8:53 AM EDT 17 g Given 09/15/2020 8:55 AM EDT 17 g pregabalin (Lyrica) capsule 100 mg 100 mg, Oral, 3 TIMES DAILY, First dose on Wed09/12/20 at 0900, Until Discontinued, Routine Given 09/17/2020 2:02 PM EDT 100 mg Given 09/17/2020 10:06 AM EDT 100 mg Given 09/16/2020 8:11 PM EDT 100 mg QUEtiapine (SEROquel) tablet 100 mg 100 mg, Oral, DAILY, First dose on Wed09/12/20 at 0900, Until Discontinued, Routine Given 09/12/2020 8:59 AM EDT 100 mg QUEtiapine (SEROquel) tablet 100 mg 100 mg, Oral, NIGHTLY, First dose (after last modification) on Wed09/12/20 at 2130, Until Discontinued, Routine Given 09/16/2020 10:58 PM EDT 100 mg Given 09/15/2020 8:58 PM EDT 100 mg Given 09/14/2020 9:37 PM EDT 100 mg senna (Senokot) tablet 17.2 mg 17.2 mg, Oral, 2 TIMES DAILY, First dose on Wed09/13/20 at 0900, Until Discontinued, Routine Given 09/17/2020 10:05 AM EDT 17.2 mg Given 09/16/2020 8:12 PM EDT 17.2 mg Given 09/16/2020 8:55 AM EDT 17.2 mg sodium chloride 0.9 % (flush) flush 10 mL 10 mL, Intravenous, DAILY PRN, Starting on Wed09/16/20 at 1455, Until Wed09/17/20 at 1950, For use when accessing Implantable Port, Routine sodium chloride 0.9 % (flush) flush 5 mL 5 mL, Intravenous, 2 TIMES DAILY, First dose on Wed09/12/20 at 0230, Until Discontinued, Routine Given 09/17/2020 10:09 AM EDT 5 mLs Given 09/16/2020 8:14 PM EDT 5 mLs Given 09/16/2020 1:26 PM EDT 5 mLs sodium chloride 0.9% infusion 100 mL/hr, Intravenous, CONTINUOUS, Starting on Wed09/12/20 at 0230, Until Wed09/12/20 at 1526 New Bag 09/12/2020 2:08 PM EDT 100 mL/hr 100 mL/hr New Bag 09/12/2020 1:46 AM EDT 100 mL/hr 100 mL/hr vancomycin (Vancocin) 1 gram in sodium chloride 0.9% 250 mL infusion 1 g, Intravenous, at 250 mL/hr, EVERY 8 HOURS, First dose (after last modification) on Wed09/13/20 at 1800, Until Discontinued, Maximum infusion rate is 1 gram/hour. If flushing of the face, neck, upper body, arms, and/or back occurs decrease infusion rate by 50% to reduce the severity of symptoms. This medication may have an associated drug lab level. Please see MAR for scheduled level. Warning Vesicant/Irritant Medication , Routine New Bag 09/17/2020 5:45 AM EDT 1 g 250 mL/hr New Bag 09/16/2020 10:56 PM EDT 1 g 250 mL/hr New Bag 09/16/2020 3:20 PM EDT 1 g 250 mL/hr vancomycin (Vancocin) 1.5 gram in sodium chloride 0.9% 250 mL infusion 1.5 g, Intravenous, at 166.7 mL/hr, ONCE, 1 dose, On Wed09/11/20 at 2147, Maximum infusion rate is 1 gram/hour. If flushing of the face, neck, upper body, arms, and/or back occurs decrease infusion rate by 50% to reduce the severity of symptoms. This medication may have an associated drug lab level. Please see MAR for scheduled level. Warning Vesicant/Irritant Medication , STAT New Bag 09/12/2020 2:02 AM EDT 1.5 g 166.7 mL/hr vancomycin (Vancocin) 750 mg in sodium chloride 0.9% 250 mL infusion 750 mg, Intravenous, at 333.3 mL/hr, EVERY 8 HOURS, First dose on Kamila 09/12/20 at 1000, Until Discontinued, Maximum infusion rate is 1 gram/hour. If flushing of the face, neck, upper body, arms, and/or back occurs decrease infusion rate by 50% to reduce the severity of symptoms. This medication may have an associated drug lab level. Please see MAR for scheduled level. Warning Vesicant/Irritant Medication , Routine New Bag 09/13/2020 10:31 AM EDT 750 mg 333.3 mL/hr New Bag 09/13/2020 2:29 AM EDT 750 mg 333.3 mL/hr New Bag 09/12/2020 6:11 PM EDT 750 mg 333.3 mL/hr Vancomycin Level - MAR Order Reminder NOT APPLICABLE, ONCE, On Wed09/19/20 at 0530, 1 dose, This alert will be scheduled by a pharmacist after order placement. This order is a reminder to nursing staff to release and draw the PRN drug level at the specified time. It may be necessary to contact phlebotomy 60 minutes prior to the scheduled due time to assure a timely blood draw. documented in this encounter Active and Recently Administered Medications Times are shown in EDT. Scheduled Medication Order 09/15/2020 09/16/2020 09/17/2020 acetaminophen (Tylenol) tablet 975 mg 975 mg, Oral, EVERY 6 HOURS SCHEDULED, First dose (after last modification) on Kamila 09/12/20 at 1800, Until Discontinued 0601 (Given - Provider: Arpan Jung RN)1127 (Given - Provider: Jennifer Hare RN)1743 (Given - Provider: Jennifer Hare RN)2309 (Given - Provider: Arpan Jung RN) 0613 (Given - Provider: Arpan Jung RN)1324 (Given - Provider: Jennifer Hare RN)1759 (Given - Provider: Jennifer Hare RN)2337 (Given - Provider: Sonia Huynh, RN) 0535 (Given - Provider: Sonia Huynh, KASANDRA)1226 (Given - Provider: Julia Garrison RN) alteplase (Cathflo) 10 mg in sodium chloride 0.9% 30 mL for intrapleural instillation (CANCELED)(Linked Group 1) 10 mg, Alternative Route- Specify in Admin Instructions, EVERY 12 HOURS, 2 doses, First dose on Wed09/16/20 at 1500, Last dose on Wed09/17/20 at 0300, Administration is limited to physicians, physician assistants and nurse practitioners. Intrapleural. Administer alteplase via chest tube, then clamp chest tube. Allow alteplase to dwell in chest tube for 1 hour. Unclamp chest tube and allow at least 2 hours of draining, with or without suction., Please specify the medical team approving this medication: Thoracic Surgery, Please specify the TEAM pager of the group who is administering this medication: [phone], Please indicate the name & specialty of the Attending Provider who authorized the use of this medication: Marko Jordan MD 1523 (Given - Provider: Jennifer Hare RN) dextromethorphan (Robitussin) capsule 15 mg 15 mg, Oral, EVERY 6 HOURS SCHEDULED, First dose on Wed09/13/20 at 1315, Until Discontinued, Routine 0602 (Given - Provider: Arpan Jung RN)1128 (Given - Provider: Jennifer Hare RN)1744 (Given - Provider: Jennifer Hare RN)2309 (Given - Provider: Arpan Jung RN) 0613 (Given - Provider: Arpan Jung RN)1324 (Given - Provider: Jennifer Hare RN)1759 (Given - Provider: Jennifer Hare RN)2337 (Given - Provider: Sonia Huynh RN) 0535 (Given - Provider: Sonia Huynh RN)1226 (Given - Provider: Julia Garrison, KASANDRA) docusate sodium (Colace) capsule 100 mg 100 mg, Oral, 2 TIMES DAILY, First dose on Wed09/13/20 at 0900, Until Discontinued, Routine 0856 (Given - Provider: Jennifer Hare RN)2056 (Given - Provider: Arpan Jung RN) 0856 (Given - Provider: Jennifer Hare RN)2011 (Given - Provider: Sonia Huynh RN) 1005 (Given - Provider: Julia Garrison RN) DULoxetine DR (Cymbalta) capsule 60 mg 60 mg, Oral, DAILY, First dose on Wed09/12/20 at 0900, Until Discontinued, Routine 0856 (Given - Provider: Jennifer Hare RN) 0856 (Given - Provider: Jennifer Hare RN) 100 (Given - Provider: Julia Garrison RN) enoxaparin (Lovenox) (40 mg/0.4 mL) subcutaneous injection 40 mg 40 mg, Subcutaneous, NIGHTLY, First dose on Kamila 09/12/20 at 2100, Until Discontinued, Routine 2056 (Given - Provider: Arpan Jung RN) 2009 (Given - Provider: Sonia Huynh RN) famotidine (Pepcid) tablet 40 mg 40 mg, Oral, NIGHTLY, First dose on Kamila 09/12/20 at 2100, Until Discontinued, Routine 2056 (Given - Provider: Arpan Jung RN) 2009 (Given - Provider: Sonia Huynh RN) HYDROmorphone (Dilaudid) tablet 2 mg (COMPLETED) 2 mg, Oral, ONCE, 1 dose, On Wed09/15/20 at 1830, Routine 1743 (Given - Provider: Jennifer Hare RN) HYDROmorphone (Dilaudid) tablet 4 mg (COMPLETED) 4 mg, Oral, ONCE, 1 dose, On Wed09/16/20 at 1345, Routine 1325 (Given - Provider: Jennifer Hare RN) ipratropium-albuteroL (DUONEB) 0.5 mg-3 mg(2.5 mg base)/3 mL nebulizer solution 3 mL 3 mL, Nebulization, EVERY 6 HOURS, First dose on Kamila 09/12/20 at 1615, Until Discontinued, Routine 0415 (Not Given - Provider: Arpan Jung RN - Reason: Patient/family refused)1127 (Given - Provider: Jennifer Hare RN)1534 (Given - Provider: Jennifer Hare RN)2127 (Given - Provider: Arpan Jung RN) 0415 (Not Given - Provider: Arpan Jung RN - Reason: Patient/family refused)1015 (Not Given - Provider: Jennifer Hare RN - Reason: Transfer to a Procedural area)1647 (Given - Provider: Jennifer Hare RN)2256 (Not Given - Provider: Sonia Huynh RN - Reason: Patient/family refused) 0534 (Given - Provider: Sonia Huynh RN)1008 (Given - Provider: Julia Garrison, KASANDRA)1615 (Not Given - Provider: Julia Garrison RN - Reason: Patient/family refused) ketorolac (Toradol) (15 mg/mL) injection 15 mg (COMPLETED) 15 mg, Intravenous, EVERY 6 HOURS SCHEDULED, 20 doses, First dose on Wed09/11/20 at 2200, Last dose on Wed09/16/20 at 1800, Routine 0602 (Given - Provider: Arpan Jung RN)1127 (Given - Provider: Jennifer Hare RN)1744 (Given - Provider: Jennifer Hare RN)2309 (Given - Provider: Arpan Jung RN) 0612 (Given - Provider: Arpan Jung RN)1324 (Given - Provider: Jennifer Hare RN)1759 (Given - Provider: Jennifer Hare RN) lamoTRIgine (LaMICtal) tablet 100 mg 100 mg, Oral, 2 TIMES DAILY, First dose on Wed09/12/20 at 0900, Until Discontinued, Routine 0856 (Given - Provider: Jennifer Hare RN)2057 (Given - Provider: Arpan Jung RN) 0855 (Given - Provider: Jennifer Hare RN)2012 (Given - Provider: Sonia Huynh, KASANDRA) 100 (Given - Provider: Julia Garrison, KASANDRA) lidocaine (Lidoderm) 5% topical patch 3 patch(Linked Group 2) 3 patch, Transdermal, EVERY 24 HOURS, First dose on Kamila 09/12/20 at 0315, Until Discontinued, Apply patch(es) for 12 hours, and then remove for 12 hours., Routine 0855 (Patch Applied - Provider: Jennifer Hare RN) 0900 (Not Given - Provider: Jennifer Hare RN - Reason: Patient/family refused) 1008 (Patch Applied - Provider: Julia Garrison, KASANDRA) lidocaine (Lidoderm) topical patch REMOVAL(Linked Group 2) Transdermal, EVERY 24 HOURS, First dose on Kamila 09/12/20 at 1430, Until Discontinued, Remove lidocaine 5% patch 2099 (Patch Removed - Provider: Arpan Jung RN) 2099 (Patch Removed - Provider: Sonia Huynh RN) lidocaine (Xylocaine) 1% (10 mg/mL) injection 10 mg (COMPLETED) 10 mg, Subcutaneous, ONCE, 1 dose, On 09/16/20 at 1115, For use in Interventional Radiology (IR) only for procedure with direct provider supervision and verbal order., Angio/IR (Day of Procedure), Routine 1155 (Given - Provider: Roosevelt Garcia MD) LORazepam (Ativan) (2 mg/mL) injection 0.5 mg (COMPLETED) 0.5 mg, Intravenous, ONCE, 1 dose, On Wed09/15/20 at 0915, Routine 0856 (Given - Provider: Jennifer Hare RN) melatonin tablet 6 mg 6 mg, Oral, NIGHTLY, First dose on Kamila 09/12/20 at 2100, Until Discontinued, Routine 2056 (Given - Provider: Arapn Jung RN) 2009 (Given - Provider: Sonia Huynh, KASANDRA) methylphenidate (Ritalin) tablet 20 mg 20 mg, Oral, 2 TIMES DAILY BEFORE MEALS, First dose on Kamila 09/12/20 at 0845, Until Discontinued, Routine 0748 (Given - Provider: Jennifer Hare RN)1634 (Given - Provider: Jennifer Hare RN) 0808 (Given - Provider: Jennifer Hare RN)1647 (Not Given - Provider: Jennifer Hare RN - Reason: Patient/family refused) 0748 (Given - Provider: Julia Garrison RN)1544 (Given - Provider: Julia Garrison RN) mometasone (ASMANEX) aerosol 1 puff 1 puff (220 mcg), Inhalation, NIGHTLY, First dose on Wed09/12/20 at 2100, Until Discontinued, Routine, Does the patient have the inspiratory effort to support a dry powder inhaler? Yes 2102 (Given - Provider: Arpan Jung RN) 2014 (Given - Provider: Sonia Huynh RN) 1007 (Given - Provider: Julia Garrison RN) nicotine (NICODERM CQ) 21 mg/24 hr patch 21 mg(Linked Group 3) 21 mg (1 patch), Transdermal, DAILY, First dose on Wed09/12/20 at 0900, Until Discontinued, Apply new patch to nonhairy, clean, dry skin on the upper body or upper outer arm; each patch should be applied to a different site , Routine 0855 (Patch Applied - Provider: Jennifer Hare RN) 0854 (Patch Applied - Provider: Jennifer Hare RN) 1008 (Patch Applied - Provider: Julia Garrison RN) nicotine (NICODERM CQ) 21 mg/24 hr patch Patch Removal(Linked Group 3) Transdermal, DAILY, First dose on Wed09/13/20 at 0800, Until Discontinued, Remove nicotine 21 mg/24 hr patch 0900 (Patch Removed - Provider: Jennifer Hare RN) 0900 (Patch Removed - Provider: Jennifer Hare RN) 0900 (Patch Removed - Provider: Julia Garrison RN) nicotine (NICODERM CQ) 21 mg/24 hr patch Patch Verification(Linked Group 3) Transdermal, 2 TIMES DAILY, First dose on Wed09/12/20 at 2000, Until Discontinued, Verify nicotine 21 mg/24 hr patch 0900 (Patch (dose and location) verified - Provider: Jennifer Hare RN)2100 (Patch (dose and location) verified - Provider: Arpan Jung RN) 0900 (Patch (dose and location) verified - Provider: Jennifer Hare RN)2100 (Patch (dose and location) verified - Provider: Sonia Huynh RN) 0900 (Patch (dose and location) verified - Provider: Julia Garrison RN) pantoprazole (Protonix) injection 40 mg 40 mg, Intravenous, DAILY, First dose on Kamila 09/12/20 at 0900, Until Discontinued 0855 (Given - Provider: Jennifer Hare RN) 0854 (Given - Provider: Jennifer Hare RN) 1008 (Given - Provider: Julia Garrison, KASANDRA) piperacillin-tazobactam (Zosyn) 3.375 g vial attach to sodium chloride 0.9% 50 mL Mini-Bag Plus 3.375 g, Intravenous, EVERY 8 HOURS SCHEDULED, First dose on Wed09/11/20 at 2058, Until Discontinued, Administer over 4 Hours, Warning Vesicant/Irritant Medication Do not administer or Y-site with lactated ringers., Indication for (Active or Suspected): Pneumonia (Community) 0131 (Stopped - Provider: Arpan Jung RN)0604 (New Bag - Provider: Arpan Jung RN)1120 (Stopped - Provider: Jennifer Hare RN)1532 (New Bag - Provider: Jennifer Hare RN)1932 (Stopped - Provider: Arpan Jung RN)2229 (New Bag - Provider: Arpan Jung RN) 0229 (Stopped - Provider: Arpan Jung RN)0614 (New Bag - Provider: Arpan Jung RN)1014 (Stopped - Provider: Jennifer Hare RN)1645 (New Bag - Provider: Jennifer Hare RN)2045 (Stopped - Provider: Sonia Huynh RN) 0133 (New Bag - Provider: Sonia Huynh RN)0533 (Stopped - Provider: Sonia Huynh RN)1008 (New Bag - Provider: Julia Garrison RN)1408 (Stopped - Provider: Julia Garrison RN)1700 (Due - Provider: Maggy Sullivan [facility]) polyethylene glycoL (Miralax) packet 17 g 17 g, Oral, DAILY, First dose on Wed09/13/20 at 0900, Until Discontinued, Routine 0855 (Given - Provider: Jennifer Hare RN) 0853 (Given - Provider: Jennifer Hare RN) 1008 (Given - Provider: Julia Garrsion RN) pregabalin (Lyrica) capsule 100 mg 100 mg, Oral, 3 TIMES DAILY, First dose on Wed09/12/20 at 0900, Until Discontinued, Routine 0856 (Given - Provider: Jennifer Hare RN)1534 (Given - Provider: Jennifer Hare RN)2127 (Given - Provider: Arpan Jung RN) 0855 (Given - Provider: Jennifer Hare RN)1515 (Given - Provider: Jennifer Hare RN)2010 (Given - Provider: Sonia Huynh RN) 1006 (Given - Provider: Julia Garrison RN)1402 (Given - Provider: Julia Garrison RN) QUEtiapine (SEROquel) tablet 100 mg 100 mg, Oral, NIGHTLY, First dose (after last modification) on Wed09/12/20 at 2130, Until Discontinued, Routine 2057 (Given - Provider: Arpan Jung RN) 2258 (Given - Provider: Sonia Huynh RN) senna (Senokot) tablet 17.2 mg 17.2 mg, Oral, 2 TIMES DAILY, First dose on Wed09/13/20 at 0900, Until Discontinued, Routine 0856 (Given - Provider: Jennifer Hare RN)2056 (Given - Provider: Arpan Jung RN) 0855 (Given - Provider: Jennifer Hare RN)2011 (Given - Provider: Sonia Huynh RN) 1005 (Given - Provider: Julia Garrison RN) sodium chloride 0.9 % (flush) flush 5 mL 5 mL, Intravenous, 2 TIMES DAILY, First dose on Wed09/12/20 at 0230, Until Discontinued, Routine 0859 (Given - Provider: Jennifer Hare RN)2058 (Given - Provider: Arpan Jung RN) 0909 (Given - Provider: Jennifer Hare RN)1326 (Given - Provider: Jennifer Hare RN)2013 (Given - Provider: Sonia Huynh RN) 1009 (Given - Provider: Julia Garrison RN) vancomycin (Vancocin) 1 gram in sodium chloride 0.9% 250 mL infusion 1 g, Intravenous, at 250 mL/hr, EVERY 8 HOURS, First dose (after last modification) on Wed09/13/20 at 1800, Until Discontinued, Maximum infusion rate is 1 gram/hour. If flushing of the face, neck, upper body, arms, and/or back occurs decrease infusion rate by 50% to reduce the severity of symptoms. This medication may have an associated drug lab level. Please see MAR for scheduled level. Warning Vesicant/Irritant Medication , Routine 0221 (New Bag - Provider: Arpan Jung RN)0321 (Stopped - Provider: Arpan Jung RN)1400 (New Bag - Provider: Jennifer Hare RN)1500 (Stopped - Provider: Jennifer Hare RN)2104 (New Bag - Provider: Arpan Jung RN)2204 (Stopped - Provider: Arpan Jung RN) 0505 (New Bag - Provider: Arpan Jung RN)0605 (Stopped - Provider: Jennifer Hare RN)1520 (New Bag - Provider: Jennifer Hare RN)1620 (Stopped - Provider: Jennifer Hare RN)2256 (New Bag - Provider: Sonia Huynh RN)2356 (Stopped - Provider: Sonia Huynh RN) 0545 (New Bag - Provider: Sonia Huynh RN)0645 (Stopped - Provider: Sonia Huynh RN)1400 (Hold - Provider: Julia Garrison RN - Reason: Per MD Order - Comment: held per MADLEAINE Chandler) Vancomycin Level - [facility] Order Reminder NOT APPLICABLE, ONCE, On Kamila 09/19/20 at 0530, 1 dose, This alert will be scheduled by a pharmacist after order placement. This order is a reminder to nursing staff to release and draw the PRN drug level at the specified time. It may be necessary to contact phlebotomy 60 minutes prior to the scheduled due time to assure a timely blood draw. PRN Medication Order 09/15/2020 09/16/2020 09/17/2020 albuteroL (PROVENTIL) nebulizer solution 2.5 mg 2.5 mg, Nebulization, EVERY 4 HOURS PRN, Starting on Kamila 09/12/20 at 0748, Until Wed09/17/20 at 1950, Wheezing, Routine bisacodyL (Dulcolax) suppository 10 mg 10 mg, Rectal, DAILY PRN, Starting on 09/14/20 at 2358, Until Tu09/17/20 at 1950, Constipation, Routine 0007 (Given - Provider: Arpan Jung RN) cyclobenzaprine (Flexeril) tablet 10 mg 10 mg, Oral, 3 TIMES DAILY PRN, Starting on Kamila 09/12/20 at 1520, Until Wed09/17/20 at 1950, Muscle spasms, Routine 1128 (Given - Provider: Jennifer Hare RN)2254 (Given - Provider: Arpan Jung RN) 1515 (Given - Provider: Jennifer Hare RN)2012 (Given - Provider: Sonia Hyunh, KASANDRA) 0535 (Given - Provider: Sonia Huynh RN)1226 (Given - Provider: Julia Garrison RN) fentaNYL (pf) (50 mcg/mL) multi-dose injection 25-50 mcg (CANCELED) 25-50 mcg, Intravenous, EVERY 3 MIN PRN, Starting on 09/16/20 at 1017, Until Wed09/16/20 at 1250, Pain, per unit protocol, - Start dose 50 mcg (reduce dose to 25 mcg if history of sedation sensitivity). - Titration dose 25-50 mcg IV, (based on patient response) every 3 minutes PRN, to maintain procedural pain less than 2 per pain Scale. Maximum dose: 50 mcg/dose, 250 mcg/hour For use in Interventional Radiology (IR) only for procedural sedation with direct provider supervision and verbal order., Angio/IR (Day of Procedure), Routine 1148 (Given - Provider: Julia Andrade RN)1155 (Given - Provider: Julia Andrade RN)1158 (Given - Provider: Julia Andrade RN)1202 (Given - Provider: Julia Andrade RN)1205 (Given - Provider: Julia Andrade RN)1219 (Given - Provider: Julia Andrade RN) heparin (pf) (porcine) (100 units/mL) flush 5 mL syringe 500 Units (COMPLETED) 500 Units (5 mL), Intravenous, DAILY PRN, 1 dose, Starting on Wed09/17/20 at 1532, Until Wed09/17/20 at 1550, Line Care, Terminal Flush for de-accessing of Implantable Port, Routine 1550 (Given - Provider: Sheba Wolfe RN - Comment: terminal flush as port deaccessed) HYDROmorphone (Dilaudid) tablet 2 mg(Linked Group 4) 2 mg, Oral, EVERY 4 HOURS PRN, Starting on Wed09/13/20 at 0752, Until Wed09/17/20 at 1950, Pain, for moderate pain (5-7), May give an additional 2 mg once if pain not relieved in 30-60 minutes., Routine 917 (See Alternative - Provider: Jennifer Hare RN)140 (See Alternative - Provider: Jennifer Hare RN)2108 (Given - Provider: Arpan Jung RN) 0855 (See Alternative - Provider: Jennifer Hare RN)151 (See Alternative - Provider: Jennifer Hare RN)2010 (See Alternative - Provider: Sonia Huynh RN) 0535 (See Alternative - Provider: Sonia Huynh RN)1005 (See Alternative - Provider: Julia Garrison RN)1402 (See Alternative - Provider: Julia Garrison RN) HYDROmorphone (Dilaudid) tablet 4 mg(Linked Group 4) 4 mg, Oral, EVERY 4 HOURS PRN, Starting on Wed09/13/20 at 0752, Until Wed09/17/20 at 1950, Pain, for Severe pain (8-10), May give an additional 2 mg once if pain not relieved in 30-60 minutes., Routine 917 (Given - Provider: Jennifer Hare RN)140 (Given - Provider: Jennifer Hare RN)2108 (See Alternative - Provider: Arpan Jung RN) 0855 (Given - Provider: Jennifer Hare RN)151 (Given - Provider: Jennifer Hare RN)2010 (Given - Provider: Sonia Huynh RN) 0535 (Given - Provider: Sonia Huynh, KASANDRA)1005 (Given - Provider: Julia Garrison, KASANDRA)1402 (Given - Provider: Julia Garrison, KASANDRA) iohexoL (Omnipaque) (350 mg/mL) injection solution 0-200 mL (COMPLETED) 0-200 mL, Intravenous, ONCE PRN, 1 dose, Starting on 09/15/20 at 1035, Until 09/15/20 at 1035, Per Protocol, Warning Vesicant/Irritant Medication , Radiology Contrast, Routine 1035 (Given - Provider: Annabelle Collazo) lidocaine (Xylocaine) 1% (10 mg/mL) injection 3 mg 3 mg (0.3 mL), Subcutaneous, ONCE PRN, 1 dose, Starting on Kamila 09/12/20 at 0133, Until Wed09/17/20 at 1950, for discomfort with PIV insertion, Routine LORazepam (Ativan) tablet 0.5 mg 0.5 mg, Oral, EVERY 8 HOURS PRN, Starting on Wed09/15/20 at 1508, Until Wed09/17/20 at 1950, Anxiety, Routine 1634 (Given - Provider: Jennifer Hare RN) 0856 (Given - Provider: Jennifer Hare RN)1647 (Given - Provider: Jennifer Hare RN) 0536 (Given - Provider: Sonia Huynh, KASANDRA) ondansetron ODT (Zofran-ODT) disintegrating tablet 8 mg 8 mg, Oral, EVERY 8 HOURS PRN, Starting on Kamila 09/12/20 at 0755, Until Wed09/17/20 at 1950, Nausea, Routine sodium chloride 0.9 % (flush) flush 10 mL 10 mL, Intravenous, DAILY PRN, Starting on 09/16/20 at 1455, Until Tu09/17/20 at 1950, For use when accessing Implantable Port, Routine sodium chloride 0.9 % (flush) flush 5-20 mL 5-20 mL, Intravenous, EVERY 1 MIN PRN, Starting on Kamila 09/12/20 at 0133, Until Tu09/17/20 at 1950, flush, Flush pertains to all indwelling lines. Flush per protocol found in the job aid using the link provided on this medication record., Routine Linked Groups Order Group 1: alteplase (Cathflo) 10 mg in sodium chloride 0.9% 30 mL for intrapleural instillation (CANCELED)Jump to med 10 mg, Alternative Route- Specify in Admin Instructions, EVERY 12 HOURS, 2 doses, First dose on Wed09/16/20 at 1500, Last dose on Wed09/17/20 at 0300, Administration is limited to physicians, physician assistants and nurse practitioners. Intrapleural. Administer alteplase via chest tube, then clamp chest tube. Allow alteplase to dwell in chest tube for 1 hour. Unclamp chest tube and allow at least 2 hours of draining, with or without suction., Please specify the medical team approving this medication: Thoracic Surgery, Please specify the TEAM pager of the group who is administering this medication: [phone], Please indicate the name & specialty of the Attending Provider who authorized the use of this medication: Marko Jordan MD And dornase alpha (PULMOZYME) 5 mg in sodium chloride 0.9% 30 mL for intrapleural instillation (CANCELED) 5 mg, Alternative Route- Specify in Admin Instructions, EVERY 12 HOURS, 2 doses, First dose on Wed09/16/20 at 1715, Last dose on Wed09/17/20 at 0515, Administration is limited to physicians, physician assistants and nurse practitioners.. Intrapleural. Wait until chest tube has drained for 2 hours after alteplase administration. Administer Dornase via chest tube, then clamp chest tube. Allow Dornase to dwell in chest tube for 1 hour. Unclamp chest tube and allow at least 2 hours of draining, with or without suction., Please specify the medical team approving this medication: Thoracic Surgery, Please specify the TEAM pager of the group who is administering this medication: [phone], Please indicate the name & specialty of the Attending Provider who authorized the use of this medication: Marko Jordan MD Group 2: lidocaine (Lidoderm) 5% topical patch 3 patchJump to med 3 patch, Transdermal, EVERY 24 HOURS, First dose on Wed09/12/20 at 0315, Until Discontinued, Apply patch(es) for 12 hours, and then remove for 12 hours., Routine And lidocaine (Lidoderm) topical patch REMOVALJump to med Transdermal, EVERY 24 HOURS, First dose on Wed09/12/20 at 1430, Until Discontinued, Remove lidocaine 5% patch Group 3: nicotine (NICODERM CQ) 21 mg/24 hr patch 21 mgJump to med 21 mg (1 patch), Transdermal, DAILY, First dose on Wed09/12/20 at 0900, Until Discontinued, Apply new patch to nonhairy, clean, dry skin on the upper body or upper outer arm; each patch should be applied to a different site , Routine And nicotine (NICODERM CQ) 21 mg/24 hr patch Patch VerificationJump to med Transdermal, 2 TIMES DAILY, First dose on Wed09/12/20 at 2000, Until Discontinued, Verify nicotine 21 mg/24 hr patch And nicotine (NICODERM CQ) 21 mg/24 hr patch Patch RemovalJump to med Transdermal, DAILY, First dose on Wed09/13/20 at 0800, Until Discontinued, Remove nicotine 21 mg/24 hr patch Group 4: HYDROmorphone (Dilaudid) tablet 2 mgJump to med 2 mg, Oral, EVERY 4 HOURS PRN, Starting on Wed09/13/20 at 0752, Until Wed09/17/20 at 1950, Pain, for moderate pain (5-7), May give an additional 2 mg once if pain not relieved in 30-60 minutes., Routine Or HYDROmorphone (Dilaudid) tablet 4 mgJump to med 4 mg, Oral, EVERY 4 HOURS PRN, Starting on Wed09/13/20 at 0752, Until Wed09/17/20 at 1950, Pain, for Severe pain (8-10), May give an additional 2 mg once if pain not relieved in 30-60 minutes., Routine documented in this encounter Care Teams Community Development Officer Relationship Specialty Start Date End Date Nino Underwood MD [address] [place] [address] PCP - General Family Medicine 09/11/20 03/29/23 documented as of this encounter
--- OUTSIDE RECORDS SUMMARY | 2024-02-03 13:18 | XMS_ITS | Encounter Summary ---
Author Organization [facility] Address [facility] [place] [address] Care Team Providers Care Weld Engineer Name Role Phone Nino Underwood MD Primary Care Provider [phone] Reason for Visit * Reason Comments Follow-up Encounter Details Date Type Department Care Team (Late st Contact Info) Description 09/26/2020 9:00 AM EDT Office [place] [address] Marko Jordan MD [facility] [place] [address] Abscess of middle lobe of right lung with pneumonia; Pleural empyema Social History Tobacco Use Types Packs/Day Years [...] Mass Index 21.79 09/26/2020 9:00 AM EDT documented in this encounter Patient Instructions * Patient Instructions* Patty Byrnes RN - 09/26/2020 9:00 AM EDT Thank you for visiting Dr. Jordan in clinic 09/26/20 Dr. Jordan has stated that you are now on an as needed basis with Thoracic Surgery. Please follow up with your Oncologist. Please call Thoracic surgery at with any questions or concerns. documented in this encounter Progress Notes * Marko Jordan MD - 09/26/2020 9:00 AM EDT Thoracic Surgery Attending Outpatient Consultation Note Marko Jordan MD [place] [address] FAX: Today I saw Mr. Fran Justin in follow-up from his recent hospitalization for a right middle lobe pneumonia with empyema. He was admitted to [facility] on 09/11/2020 admitted via transfer and had a bedside pigtail catheter placed and drained serous fluid. A CT Chest was obtained on hospital day 2 noted a persistent right sided loculated pleural effusion. Tpa/Dornase therapywas initiated and he underwent 4 cycles. On hospital day 4, CT chest was obtained to evaluate the size of effusion, which showed decreased right pleural effusion and persistent right lung abscess. Anadditional pigtail was placed into a more lateral collection. The R pleural fluid culture grew strep millerii that was sensitive to penicillin. ID recommendated an additional 4-6 weeks of augmentin. His pigtail catheters were removed prior to discharge. He is feeling well today. He is taking his antibiotics as prescribed. He denies fever and chills. He does note some intermittent night sweats, but was having these prior to his pneumonia episode. Hisappetite and energy levels are improving. He notes an occassional intermittent productive cough of phlegm. He is still smoking. On physical examination today, his height is 160.8 cm (5' 3.31) and weight is 56.3 kg (124 lb 3.2 oz). His temporal temperature is 36.8 ??C (98.2 ??F). His blood pressure is 129/67 and his pulse is 88. His respiration is 20 and oxygen saturation is 94%. Body mass index is 21.79 kg/m??. In general,he is in no acute distress. His pupils are reactive. His lungs are clear to auscultation bilaterally. His heart has a regular rate with no murmurs. His abdomen is soft and nontender. His extremities are warm with no edema. Neurologically, he is grossly intact. Today's chest CT with contrast, which I have personally reviewed, shows: FINDINGS: Pulmonary parenchyma: Decrease in size of [...] thoracolumbar spine, including compression deformity of L1. ?? IMPRESSION 1. Right middle lobe abscess has decreased in size. 2. Decreased right pleural fluid collection. 3. Several new irregular focal opacities in the right lower lobe are most likely due to infection or inflammation. In summary, Mr. Fran Justin has made a good early recovery from his complicated right middle lobe pneumonia with lung abscess and empyema. He is clinically significantly improved and his CT today shows significant improvement as well. He was instructed to complete his course of antibiotics. He wasalso advised to quit smoking and to use his incentive spirometer, as these will help him clear thispneumonia. Given the findings of his CT, I think he should have a repeat CT of the chest in approximately 3 months to ensure resolution of the pneumonia. There are two likely inflammatory/infectious nodules noted in the right lower lobe that also need to be followed to ensure resolution. I offered to have him follow-up with me here with a CT in 3 months, but he would prefer to have this done withhis oncologist, Dr. Stephens. Given this, he may follow-up with me on an as needed basis. I am happy to see him back at any time,particularly if there are new or persistent findings on his CT chest in 3 months. My office will communicate the above to Dr. Stephens's office as well. He knows to contact my office if he has signs/symptoms of recurrent pneumonia. Marko Jordan MD 09/26/2020 documented in this encounter Plan of Treatment Not on file documented as of this encounter Visit Diagnoses Diagnosis Abscess of middle lobe of right lung with pneumonia Pleural empyema Empyema without mention of fistula documented in this encounter Care Teams Weld Engineer Relationship Specialty Start Date End Date Nino Underwood MD [address] [place] [address] PCP - General Family Medicine 09/11/20 03/29/23 documented as of this encounter
--- OUTSIDE RECORDS SUMMARY | 2024-02-03 13:18 | XMS_ITS | Encounter Summary ---
Author Organization [facility] [place] [address] Care Team Providers Care Cutter Aluminum Sheet Name Role Phone Nino Underwood MD Primary Care Provider [phone] Reason for Visit * Reason Onset Date Comments Post Procedure Call 09/23/2020 Encounter Details Date Type Department Care Team (Late st Contact Info) Description 09/23/2020 Telephone Thoracic [place] [phone] Patty Byrnes RN Post Procedure Call Social History Tobacco Use Types Packs/Day Years [...] encounter Miscellaneous Notes * Telephone Encounter - Patty Byrnes RN - 09/23/2020 8:52 AM EDTSummary: post op call Thoracic Surgery Nursing Post-operative Follow up: ?? UNABLE TO REACH Mr. ALMODOVAR, left message to call back / called back at 12:52 pm ?? Hx: Hx lymphoma s/p CHOP therapy with XRT and RLL abscess and loculated effusion, s/p IR pigtail placement and removal, discharged on 09/18/20, with Augmentin and hydromorphone General statement: I am doing ok, but that dilaudid that I got, makes me angry. And I have stoppedtaking it. But I am in pain and I did not know if there was something else that I could take. Instructed not to take the dilaudid and he very much agreed to this plan. Reviewed mood changes with Paul Chandler PA-C, will send script for oxycodone 5 mg every 8 hours prn for 8 tablets. Pain: taking extra strength tylenol 1000 mg and ibuprofen 600 mg with minimal relief of pain at topof breast. GI: appetite: good Diet: regular Hydration: good Voiding: without any difficulty BM: without any difficulty - LBM today - What is the Bowel regimen: taking miralax Respiratory: NOT using IS as directed, highly encouraged to use 10 times every hour and reviewed atlength how to use his IS the appropriate way and was able to get up to 1000. SOB: exertional SOB Difficulty breathing: denies Coughing with or without sputum: coughing with minimal productive Activity: up and about without any difficulty Integumentary:Incisions without any redness, swelling, drainage, fevers, chills, sweats, site hot to touch, bruising and bleeding Plan: RTC on 09/26/2020 CT w contrast 09/26/2020 arrival 6:45 am to medical receptionist assistant area 3Z Dr. Jordan in medical receptionist assistant area 3K at 9:45 am Fran Almodovar is aware of appointments and know to call with any questions or concerns. documented in this encounter Plan of Treatment Not on file documented as of this encounter Visit Diagnoses Not on filedocumented in this encounter Care Teams Cutter Aluminum Sheet Relationship Specialty Start Date End Date Nino Underwood MD [address] [place] [address] PCP - General Family Medicine 09/11/20 03/29/23 documented as of this encounter
--- OUTSIDE RECORDS SUMMARY | 2024-02-03 13:18 | XMS_ITS | Encounter Summary ---
[place] [address] Care Team Providers Care Solid State Tester Name Role Phone Nino Underwood MD Primary Care Provider [phone] Reason for Visit * Reason Onset Date Comments Other 10/04/[address] review plan for repeat CT in 3 mos Encounter Details Date Type Department Care Team (Late st Contact Info) Description 10/04/2020 Telephone [place] [phone] Patty Byrnes RN Other (review plan for repeat CT in 3 mos) Social History Tobacco Use Types Packs/Day Years Used Date Smoking Tobacco: Every Day Cigarettes 3 40 Started: 09/07/1980; Last attempted to quit: 09/07/2020 Smokeless Tobacco: Never Comments:now smoking 1 ppd Alcohol Use Standard Drinks/Week Comments Not Currently 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 Stephens's office [phone] Spoke with Dave, Dr. Stephens's nurse Reviewed that Mr. Justin was seen by Dr. Jordan for RLL loculated pleural effusion s/p tPa/dornase treatment. Per Dr. Jordan some atelectasis was noted on his CT scan from 09/26/[address] scan in 3 mos was his recommendation. Faxed note as well. Dave was grateful for this information and knows to call with any questions or concerns documented in this encounter Plan of Treatment Not on file documented as of this encounter Visit Diagnoses Not on filedocumented in this encounter Care Teams Solid State Tester Relationship Specialty Start Date End Date Nino Underwood MD [address] [place] [address] PCP - General Family Medicine 09/11/20 03/29/23 documented as of this encounter
--- OUTSIDE RECORDS SUMMARY | 2024-02-03 13:18 | XMS_ITS | Encounter Summary ---
Author Organization [facility] [place] [address] Care Team Providers Care Apprentice Funeral Director Name Role Phone Nino Underwood MD Primary Care Provider [phone] Reason for Visit * Reason Comments Nicotine Dependence Encounter Details Date Type Department Care Team (Late st Contact Info) Description 10/14/2020 12:00 PM EDT TH Visit (TeleHealth) [place] [address] Estrella Gomez APRN [facility] DR CARDI[place] [address] Nicotine dependence, cigarettes, uncomplicated; Tobacco abuse counseling [...] Progress Notes * Estrella Gomez APRN - 10/14/2020 12:00 PM EDT Thoracic Surgery - Tobacco Cessation Follow Up Estrella Gomez APRN [place], [place] [address] FAX: HPI: Fran Justin is a 55 y.o. male who is being seen today in follow up for tobacco cessation. He has smoked for 40 years with a 120 pack year history. He was last seen 09/30/20 and that time he wassmoking 1 ppd and opted for starting the 21 mg nicotine patches and the 4 mg gum as needed for cravings. Since then he has increased his smoking to almost 2 ppd due to anxiety and depression. He was wearing the 21 mg nicotine patch but did not feel like it was helping so he stopped. He has not tried the gum yet. Triggers identified: nervous/anxiety, depression Medications: Current Outpatient Medications on File Prior to Visit Medication Sig Dispense Refill ??? nicotine polacrilex (NICORETTE) 4 mg Gum Take 1 each by mouth every 2 hours as needed for Smoking cessation. Nothing but water 15 min before or during use. 100 each 3 ??? nicotine (NICOTROL) 10 mg Cartridge Inhale 1 puff into the lungs as needed for Smoking cessation (no more than 16 cartridges per day). 1 each 3 ??? Ensure Liquid DRINK 1 CAN BY MOUTH THREE TIMES A DAY ??? Trelegy Ellipta 100-62.5-25 mcg Disk with Device INHALE ONE PUFF BY MOUTH EVERY DAY ??? cyanocobalamin, Vitamin B-12, (Vitamin B-12) 1,000 mcg Tablet Take 1,000 mcg by mouth Daily. ??? albuteroL 90 mcg/actuation HFA Aerosol Inhaler Inhale 2 puffs into the lungs Every 4 hours. ??? naloxone (Narcan) 4 mg/actuation [place], Non-Aerosol SPRAY 0.1ML INTO ONE NOSTRIL REPEAT WITH SECOND DEVICE INTO THE OTHER NOSTRIL AFTER 2 3 MINUTES IF NO OR MINIMAL RESPONSE ??? methylphenidate (RITALIN) 20 mg Tablet TAKE ONE TABLET BY MOUTH TWICE A DAY ??? multivitamin Capsule Take 1 capsule by mouth Daily. ??? triamcinolone (KENALOG) 0.1 % Cream APPLY TO AFFECTED AREA S THREE TIMES A DAY NEEDED ??? nicotine (NICODERM CQ) 21 mg/24 hr Patch 24 hr APPLY ONE PATCH TO THE SKIN EVERY DAY ??? meloxicam (MOBIC) 15 mg Tablet TAKE ONE TABLET BY MOUTH EVERY DAY FOR 30 DAYS NEEDED ??? cetirizine (ZyrTEC) 10 mg Tablet TAKE ONE TABLET BY MOUTH AT BEDTIME NIGHTLY ??? oxyCODONE (Roxicodone) 5 mg Tablet Take [...] capsule by mouth daily. 30tablet 11 ??? famotidine (Pepcid) 40 mg Tablet Take 1 tablet by mouth nightly. (Patient not taking: Reported on 09/30/2020) 30 tablet 12 ??? HYDROmorphone (Dilaudid) 2 mg Tablet Take 1 tablet by mouth every 4 hours as needed for Pain (For pain not controlled by Tylenol and Ibuprofen). (Patient not taking: Reported on 09/30/2020) 15 tablet 0 ??? lamoTRIgine (LaMICtal) 100 mg Tablet Take 1 tablet by mouth 2 times daily. 30 tablet 12 ??? melatonin 3 mg Tablet Take 2 tablets by mouth nightly. (Patient not taking: Reported on 09/30/2020) 60 each 0 ??? mometasone (ASMANEX) 220 mcg/ actuation (14) [...] by mouth nightly. 30 tablet 0 ??? senna (Senokot) 8.6 mg Tablet Take 2 tablets by mouth 2 times daily. (Patient not taking: Reported on 09/30/2020) 60 tablet 0 ??? amoxicillin-clavulanate (Augmentin) 875-125 mg Tablet Take 1 tablet by mouth 2 times daily for 28 days. 56 tablet 0 No current facility-administered medications on file prior to visit. Physical Exam: Deferred Assessment: Fran Justin is a 55 y.o. male seen today for smoking cessation counseling. He is currently smoking almost 2 ppd and does wish to quit at this time. He is in the contemplation stage of change. Behavioral counseling in addition to pharmacotherapy recommendations were given. The patient has opted for increasing to two 21 mg nicotine patches and starting the 4 mg nicotine gum as needed. CO level: Deferred 15 minutes were spent with this patient in counseling for tobacco cessation. Plan: 1. Increase to two 21 mg nicotine patches and start the 4 mg nicotine gum as needed, discussed how to use and side effects 2. Discussed behavioral change including keeping busy with projects and delaying 3. Follow up with PCP to discuss depression and anxiety 4. Call with any questions or concerns 5. Follow up in 1 weeks, 10/22/20 at 11:30am over the phone Estrella Gomez APRN 10/14/20 Thoracic Surgery - Tobacco Treatment Program [facility] documented in this encounter Plan of Treatment Not on file documented as of this encounter Visit Diagnoses Diagnosis Nicotine dependence, cigarettes, uncomplicated Tobacco abuse counseling Counseling on substance use and abuse documented in this encounter Care Teams Apprentice Funeral Director Relationship Specialty Start Date End Date Nino Underwood MD [address] [place] [address] PCP - General Family Medicine 09/11/20 03/29/23 documented as of this encounter
--- OUTSIDE RECORDS SUMMARY | 2024-02-03 13:18 | XMS_ITS | Encounter Summary ---
[place] [address] Care Team Providers Care Pillar Man Name Role Phone Jaxon Napier MD Primary Care Provider [phone] Encounter Details Date Type Department Care Team (Late st Contact Info) Description 07/23/2020 Ancillary Procedure [place] [address] Nino Underwood MD [address] [address] Social History Tobacco Use Types Packs/Day Years [...] FILM LIBRARY STORAGE ONLY NM PET/CT Routine 07/23/2020 12:00 AM EST documented in this encounter Results * Film Library- Storage Only NM Pet / CT (07/23/2020 12:00 AM EST) Narrative [facility] - 01/09/2021 4:32 PM EDT This exam is auto-finalizing. It's purpose is for storage only. Nino Underwood MD IMG FILM LIBRARY ORD ERABLES [place], [place] documented in this encounter Visit Diagnoses Not on filedocumented in this encounter Care Teams Pillar Man Relationship Specialty Start Date End Date Jaxon Napier MD [address] [place] [address] PCP - General 08/10/12 09/10/20 documented as of this encounter
--- OUTSIDE RECORDS SUMMARY | 2024-02-03 13:18 | XMS_ITS | Encounter Summary ---
[place] [address] Care Team Providers Care Hospice Community Liaison Name Role Phone Nino Underwood MD Primary Care Provider [phone] Encounter Details Date Type Department Care Team (Late st Contact Info) Description 09/12/2020 11:59 PM EDT Anesthesia Event [address] [place] [id number] Syndey Jung MD [facility] [place] [address] Anesthesia Record Procedure Summary Procedure Name Responsible Anesthesiologist Anesthesia Start Time Anesthesia Stop Time Acute Pain Medicine Service (consult) Events No events on file. Meds * Agents No agents on file. * Blood No blood administrations on file. Lines, Drains, and Airways No LDAs on file. documented in this encounter Social History Tobacco Use Types Packs/Day Years [...] on filedocumented in this encounter Care Teams Hospice Community Liaison Relationship Specialty Start Date End Date Nino Underwood MD [address] [place] [address] PCP - General Family Medicine 09/11/20 03/29/23 documented as of this encounter
--- OUTSIDE RECORDS SUMMARY | 2024-02-03 13:18 | XMS_ITS | Encounter Summary ---
Author Organization [facility] Address [address] [place] [address] Care Team Providers Care Wrist Hemmer Name Role Phone Unavailable Primary Care Provider Unavailabl e Encounter Details Date Type Department Care Team (Latest Contact Info) Description 12/26/1999 23:20 EDT - 12/27/1999 11:59 EDT Hospital Encounter [facility] Emergency Department - [facility] [address] [place] [address] Emergency, Default, MD Discharge Disposition: Home or [...]
--- OUTSIDE RECORDS SUMMARY | 2024-02-03 13:18 | XMS_ITS | Encounter Summary ---
Author Organization [facility] Address [address] [place] [address] Care Team Providers Care Network Control Operators Supervisor Name Role Phone Unavailable Primary Care Provider Unavailabl e Encounter Details Date Type Department Care Team (Latest Contact Info) Description 06/06/1999 17:49 EST Hospital Encounter [facility] Emergency Department - [facility] [address] [place] [address] Emergency, Default, MD Discharge Disposition: Home or [...]
--- OUTSIDE RECORDS SUMMARY | 2024-02-03 13:18 | XMS_ITS | Encounter Summary ---
Author Organization [facility] [place] [address] Care Team Providers Care Gear Grinding Machine Operator Name Role Phone Nino Underwood MD Primary Care Provider [phone] Reason for Referral * Diagnostic Test (Routine) - Closed Specialty Diagnoses / Procedures Referred By Contac t Referred To Contact Radiology Diagnoses Empyema Procedures CT Chest w Contrast Maryellen Chandler PA [facility] [place] [address] [facility] [place] [address] Referral ID Status Reason Start Date Expiration Date V isits Requested Visits Authorized [id number] Closed Specialty Service Requested 09/19/2020 03/21/2022 1 1 Reason for Visit * Diagnostic Test (Routine) - Closed Specialty Diagnoses / Procedures Referred By Contac t Referred To Contact Radiology Diagnoses Empyema Procedures CT Chest w Contrast Maryellen Chandler PA [facility] [place] [address] [facility] [place] [address] Referral ID Status Reason Start Date Expiration Date V isits Requested Visits Authorized [id number] Closed Specialty Service Requested 09/19/2020 03/21/2022 1 1 Encounter Details Date Type Department Care Team (Latest Contact Info) Description 09/26/2020 6:53 AM EDT - 09/26/2020 11:59 PM EDT Hospital Encounter CT Scan at [facility] [place] [address] Marko Jordan MD [facility] [place] [address] Empyema Discharge Disposition: Home Social History Tobacco Use Types Packs/Day Years [...] Take 1,000 mcg by mouth Daily. 01/23/2020 albuteroL 90 mcg/actuation HFA Aerosol Inhaler Inhale 2 puffs into the lungs Every 4 hours. naloxone (Narcan) 4 mg/actuation [place], Non-Aerosol SPRAY 0.1ML INTO ONE NOSTRIL REPEAT WITH SECOND DEVICE INTO THE OTHER NOSTRIL AFTER 2 3 MINUTES IF NO OR MINIMAL RESPONSE 06/14/2020 methylphenidate (RITALIN) 20 mg Tablet TAKE ONE TABLET BY MOUTH TWICE A DAY 08/16/2020 multivitamin Capsule Take 1 capsule by mouth Daily. triamcinolone (KENALOG) 0.1 % Cream APPLY TO [...] TABLET BY MOUTH AT BEDTIME NIGHTLY 06/03/2020 oxyCODONE (Roxicodone) 5 mg Tablet Take 1 tablet by mouth every 8 hours as needed for Pain. 8 tablet 09/23/2020 acetaminophen (Tylenol) 500 mg Tablet Take 2 [...] 09/17/2020 10/15/2020 documented as of this encounter Plan of Treatment Not on file documented as of this encounter Procedures Procedure Name Priority Date/Time Associated Diagnosis Comments CT CHEST W CONTRAST Routine 09/26/2020 7 :21 AM EDT Empyema documented in this encounter Results * CT [...] who have questions please contact the health career development director that requested your imaging first. ? Narrative [...] patients who have questions please contactthe health career development director that requested your imaging first. Marko Jordan MD IMG CT ORDERABLES documented in this encounter Visit Diagnoses Diagnosis Empyema Empyema without mention of fistula documented in this encounter Administered Medications Inactive Administered Medications - up to 3 most recent administrations Medication Order MAR Action Action Date Dose Rate Site iohexoL (Omnipaque) (350 mg/mL) injection solution 0-200 mL 0-200 mL, Intravenous, ONCE PRN, 1 dose, Starting on Kamila 09/26/20 at 0721, Until Kamila 09/26/20 at 0721, Per Protocol, Warning Vesicant/Irritant Medication , Radiology Contrast, Routine Given 09/26/2020 7:21 AM EDT 60 mLs documented in this encounter Care Teams Gear Grinding Machine Operator Relationship Specialty Start Date End Date Nino Underwood MD [address] [place] [address] PCP - General Family Medicine 09/11/20 03/29/23 documented as of this encounter
[2024-02-03 23:35] LABS: Calculated LDL 134 mg/dL (<100); Cholesterol 196 mg/dL (<200); HDL Cholesterol 51 mg/dL (40-60); TSH 0.99 uIU/Ml (0.36-3.74); Triglyceride 57 mg/dL (<150)
[2024-02-03 23:37] LABS: Vitamin B12 > 2000 pg/mL (193-986)
[2024-02-03 23:52] LABS: FREE T4 0.88 ng/dL (0.76-1.46)
== END 2024-02-03 13:06 | disposition home or self-care (01) ==
LOC: NCHCN 13:05
PROVIDERS: Visit Provider Nurse Practitioner Family
DX: Z00.00 Encounter for general adult medical examination without abnormal findings (principal); E53.9 Vitamin B deficiency, unspecified; Z51.81 Encounter for therapeutic drug level monitoring
CPT/HCPCS: 80061; 82607; 84439; 84443

== ENCOUNTER 2024-02-03 22:21 | Outpatient (REF) | payer MEDICAID, SELFPAY ==
--- OUTSIDE RECORDS SUMMARY | 2024-02-03 22:24 | XMS_ITS ---
Author Organization Unknown Address [address] [place] [phone] Phone Care Team Providers Care Mechanical Engineering Technician Name Role Phone RAMADOUG KATRINA Zaidi Attending [...] D , June 19, 2021 2:37:50 PM [id number] Electronically Reviewed and Signed By: EWA LERMA MD 06/29/21 10:58 Copy for: 185 HEALTH INFORMATION MGMT Social History Type Status Start Date End Date Code Code Syst em Smoking History Current every day smoker [address] Sex Male Medications Medication Start Date End Date Route Frequency Dose Code Code System Medication Instructions Home Meds SEROquel 100MG Oral Tablet 02/07/2017 Unknown ORAL BEDTIME 100 MILLIGRAMS 539250 RxNorm TAKE 100 MILLIGRAMS ORAL BEDTIME lamoTRIgine 100MG Oral Tablet 02/07/2017 3 ORAL TWICE A DAY 100 MILLIGRAMS 762648 RxNorm TAKE 100 MILLIGRAMS ORAL TWICE A DAY Mapap 325MG Oral Tablet 02/07/2017 3 BY MOUTH NEEDED EVERY 4 HOURS 650 MILLIGRAMS 659019 RxNorm TAKE 650 MILLIGRAMS BY MOUTH NEEDED EVERY 4 HOURS Thera-M Enhanced 90MG-0.03MG-0 .15MG-4 Oral Tablet 09/25/2017 Unknown BY MOUTH DAILY WITH FOOD 1 TABLET 860301 RxNorm TAKE 1 TABLET BY MOUTH DAILY WITH FOOD EC Naproxen 500MG Oral Tablet, Enteric Coated 04/25/2021 3 ORAL TWICE A DAY 1 TABLET 571507 RxNorm TAKE 1 TABLET ORAL TWICE A [...] Date Status Code Code System PNEUMONIA active 525888889 SNOMED-CT COPD active 95708749 SNOMED-CT LYMPHOMA active 977121054 SNOMED-CT DIAZ'S CYST OF KNEE active 775360005 SNOMED-CT RIGHT TESTICULAR PAIN active 06075188 510801552 SNOMED-CT ALCOHOL WITHDRAWAL 09/08/2020 resolved 573730079 SNOMED-CT Allergies and Adverse Reactions Allergy Substance Reaction Severity Start Date Concern Status Co de Code System MIRTAZAPINE Active 14108 RxNorm WELLBUTRIN Seizure (SNOMED-CT: 38238101) Severe Active 37918 RxNorm Plan of Treatment Pre-Op Testing 10/07/2020 Pre-Op Covid-19 Testing 07/04/2020 Pre-Op Covid-19 Testing 06/19/2020 Pre-Op Covid-19 Testing 04/30/2020 Pre-Op Covid-19 Testing 05/03/2020 NM MPI STR/RST 04/14/2023 US RENAL 07/08/2021 X-RAY 06/19/2021 PSG NIGHT 05/05/2021 Encounters Encounter Diagnosis Start Date Code Code Sys tem Pulmonary emphysema 06/19/2021 41473079 SNOMED-C T Personal Care Team Section Performer Name Performer Role Active Date Inactive Da te
--- OUTSIDE RECORDS SUMMARY | 2024-02-03 22:24 | XMS_ITS ---
Author Organization Unknown Address [address] [place] [phone] Phone Care Team Providers Care Architecture Intern Name Role Phone GISELA KATRINA Dyan Attending [...] D Thursday, July 08, 2021 4:44:20 PM [phone] Electronically Reviewed and Signed By: CHRISTIE QUINTERO MD 07/09/21 18:36 Copy for: 185 HEALTH INFORMATION MGMT Social History Type Status Start Date End Date Code Code Syst em Smoking History Current every day smoker [address] Sex Male Medications Medication Start Date End Date Route Frequency Dose Code Code System Medication Instructions Home Meds SEROquel 100MG Oral Tablet 02/07/2017 Unknown ORAL BEDTIME 100 MILLIGRAMS 753169 RxNorm TAKE 100 MILLIGRAMS ORAL BEDTIME lamoTRIgine 100MG Oral Tablet 02/07/2017 3 ORAL TWICE A DAY 100 MILLIGRAMS 092392 RxNorm TAKE 100 MILLIGRAMS ORAL TWICE A DAY Mapap 325MG Oral Tablet 02/07/2017 3 BY MOUTH NEEDED EVERY 4 HOURS 650 MILLIGRAMS 213347 RxNorm TAKE 650 MILLIGRAMS BY MOUTH NEEDED EVERY 4 HOURS Thera-M Enhanced 90MG-0.03MG-0 .15MG-4 Oral Tablet 09/25/2017 Unknown BY MOUTH DAILY WITH FOOD 1 TABLET 828056 RxNorm TAKE 1 TABLET BY MOUTH DAILY WITH FOOD EC Naproxen 500MG Oral Tablet, Enteric Coated 04/25/2021 3 ORAL TWICE A DAY 1 TABLET 315361 RxNorm TAKE 1 TABLET ORAL TWICE A [...] Date Status Code Code System PNEUMONIA active 333875958 SNOMED-CT COPD active 88586908 SNOMED-CT LYMPHOMA active 270834138 SNOMED-CT DIAZ'S CYST OF KNEE active 412217602 SNOMED-CT RIGHT TESTICULAR PAIN active 88859596 473651251 SNOMED-CT ALCOHOL WITHDRAWAL 09/08/2020 resolved 919464766 SNOMED-CT Allergies and Adverse Reactions Allergy Substance Reaction Severity Start Date Concern Status Co de Code System MIRTAZAPINE Active 60196 RxNorm WELLBUTRIN Seizure (SNOMED-CT: 25525166) Severe Active 74724 RxNorm Plan of Treatment Pre-Op Testing 10/07/2020 Pre-Op Covid-19 Testing 07/04/2020 Pre-Op Covid-19 Testing 06/19/2020 Pre-Op Covid-19 Testing 04/30/2020 Pre-Op Covid-19 Testing 05/03/2020 NM MPI STR/RST 04/14/2023 US RENAL 07/08/2021 X-RAY 06/19/2021 PSG NIGHT 05/05/2021 Encounters Encounter Diagnosis Start Date Code Code 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
--- OUTSIDE RECORDS SUMMARY | 2024-02-03 22:24 | XMS_ITS ---
Author Organization Unknown Address [address], [place] [phone] Phone Care Team Providers Care Assistant Golf Coach Name Role Phone SHAINA FROST Attending Unavailable CATRACHO Jain Primary Unavailable Social History Type Status Start Date End Date Code Code Syst em Smoking History Current every day smoker [address] Sex Male Medications Medication Start Date End Date Route Frequency Dose Code Code System Medication Instructions Home Meds SEROquel 100MG Oral Tablet 02/07/2017 Unknown ORAL BEDTIME 100 MILLIGRAMS 776955 RxNorm TAKE 100 MILLIGRAMS ORAL BEDTIME lamoTRIgine 100MG Oral Tablet 02/07/2017 3 ORAL TWICE A DAY 100 MILLIGRAMS 446205 RxNorm TAKE 100 MILLIGRAMS ORAL TWICE A DAY Mapap 325MG Oral Tablet 02/07/2017 3 BY MOUTH NEEDED EVERY 4 HOURS 650 MILLIGRAMS 873307 RxNorm TAKE 650 MILLIGRAMS BY MOUTH NEEDED EVERY 4 HOURS Thera-M Enhanced 90MG-0.03MG-0 .15MG-4 Oral Tablet 09/25/2017 Unknown BY MOUTH DAILY WITH FOOD 1 TABLET 373590 RxNorm TAKE 1 TABLET BY MOUTH DAILY WITH FOOD EC Naproxen 500MG Oral Tablet, Enteric Coated 04/25/2021 3 ORAL TWICE A DAY 1 TABLET 260786 RxNorm TAKE 1 TABLET ORAL TWICE A [...] Date Status Code Code System PNEUMONIA active 771423157 SNOMED-CT COPD active 34116590 SNOMED-CT LYMPHOMA active 992477182 SNOMED-CT DIAZ'S CYST OF KNEE active 157093621 SNOMED-CT RIGHT TESTICULAR PAIN active 16846966 862073758 SNOMED-CT ALCOHOL WITHDRAWAL 09/08/2020 resolved 547061641 SNOMED-CT Allergies and Adverse Reactions Allergy Substance Reaction Severity Start Date Concern Status Co de Code System MIRTAZAPINE Active 95977 RxNorm WELLBUTRIN Seizure (SNOMED-CT: 39908854) Severe Active 97367 RxNorm Plan of Treatment Pre-Op Testing 10/07/2020 Pre-Op Covid-19 Testing 07/04/2020 Pre-Op Covid-19 Testing 06/19/2020 Pre-Op Covid-19 Testing 04/30/2020 Pre-Op Covid-19 Testing 05/03/2020 NM MPI STR/RST 04/14/2023 US RENAL 07/08/2021 X-RAY 06/19/2021 PSG NIGHT 05/05/2021 Encounters Encounter Diagnosis Start Date Code Code Sys tem Refusal of treatment by patient 10/30/2021 476785224 SNOMED-CT Personal Care Team Section Performer Name Performer Role Active Date Inactive Da yosef
--- OUTSIDE RECORDS SUMMARY | 2024-02-03 22:25 | XMS_ITS ---
Author Organization Unknown Address [address] [place], [place] [phone] Phone Care Team Providers Care Supervisor Graphite Name Role Phone KATLYN Scales Attending Unavailable CATRACHO Jain Primary Unavailable Social History Type Status Start Date End Date Code Code Syst em Smoking History Current every day smoker [address] Sex Male Medications Medication Start Date End Date Route Frequency Dose Code Code System Medication Instructions Home Meds SEROquel 100MG Oral Tablet 02/07/2017 Unknown ORAL BEDTIME 100 MILLIGRAMS 280645 RxNorm TAKE 100 MILLIGRAMS ORAL BEDTIME lamoTRIgine 100MG Oral Tablet 02/07/2017 3 ORAL TWICE A DAY 100 MILLIGRAMS 193691 RxNorm TAKE 100 MILLIGRAMS ORAL TWICE A DAY Mapap 325MG Oral Tablet 02/07/2017 3 BY MOUTH NEEDED EVERY 4 HOURS 650 MILLIGRAMS 330028 RxNorm TAKE 650 MILLIGRAMS BY MOUTH NEEDED EVERY 4 HOURS Thera-M Enhanced 90MG-0.03MG-0 .15MG-4 Oral Tablet 09/25/2017 Unknown BY MOUTH DAILY WITH FOOD 1 TABLET 160963 RxNorm TAKE 1 TABLET BY MOUTH DAILY WITH FOOD EC Naproxen 500MG Oral Tablet, Enteric Coated 04/25/2021 3 ORAL TWICE A DAY 1 TABLET 286456 RxNorm TAKE 1 TABLET ORAL TWICE A [...] Date Status Code Code System PNEUMONIA active 518048435 SNOMED-CT COPD active 50436645 SNOMED-CT LYMPHOMA active 788735200 SNOMED-CT DIAZ'S CYST OF KNEE active 359006354 SNOMED-CT RIGHT TESTICULAR PAIN active 13697956 726820823 SNOMED-CT ALCOHOL WITHDRAWAL 09/08/2020 resolved 863609824 SNOMED-CT Allergies and Adverse Reactions Allergy Substance Reaction Severity Start Date Concern Status Co de Code System MIRTAZAPINE Active 04462 RxNorm WELLBUTRIN Seizure (SNOMED-CT: 52215534) Severe Active 52665 RxNorm Plan of Treatment Pre-Op Testing 10/07/2020 Pre-Op Covid-19 Testing 07/04/2020 Pre-Op Covid-19 Testing 06/19/2020 Pre-Op Covid-19 Testing 04/30/2020 Pre-Op Covid-19 Testing 05/03/2020 NM MPI STR/RST 04/14/2023 US RENAL 07/08/2021 X-RAY 06/19/2021 PSG NIGHT 05/05/2021 Encounters Encounter Diagnosis Start Date Code Code Sys tem Refusal of treatment by patient 01/06/2022 171958505 SNOMED-CT Personal Care Team Section Performer Name Performer Role Active Date Inactive Da yosef
--- OUTSIDE RECORDS SUMMARY | 2024-02-03 22:25 | XMS_ITS ---
Author Organization Unknown Address [address] [place] [phone] Phone Care Team Providers Care Negative Cutter Name Role Phone SHAINA FROST Attending Unavailable CATRACHO Jain Primary Unavailable Results TSH THYROID STIMULATING HORM ONE* - Collect Date/Time: 09/02/2021 15:40 [facility] ID: [id number] [address] [place] [address], [address] LOINC: 3014-8 Test Value Unit Reference Range Code Code System Flag TSH 0.384 uIU/mL L=0.360 H=3.740 3014-8 LOINC PARANEOPLASTIC AUTOANTIBODY EVAL* - Collect Date/Time: 09/02/2021 15:40 [facility] ID: [id number] [address] [place] [address], [id number] LOINC: 53999-8 Test Value Unit Reference Range Code Code System Flag Interpretive Comments See Below 44211-4 LOINC JUAN JOSE-1, S Negative <1:240 38832-9 LOINC JUAN JOSE-2, S Negative <1:240 27624-2 LOINC JUAN JOSE-3, S Negative <1:240 64670-5 LOINC AGNA-1, S Negative <1:240 20211-9 LOINC REPRODUCTIVE SURGEON-1, S Negative <1:240 69044-1 LOINC REPRODUCTIVE SURGEON-2, S Negative <1:240 32378-2 LOINC REPRODUCTIVE SURGEON-Tr, S Negative <1:240 65161-7 LOINC Amphiphysin Ab, S Negative <1:240 41820-6 LOINC CRMP-5-IgG, S Negative <1:240 15513-2 LOINC P/Q-Type Calcium ChannelAb 0.00 nmol/L <=0.02 95037-2 LOINC Neuronal (V-G) K+Channel Ab, S 0.00 nmol/L <=0.02 65023-2 LOINC Reflex Added None. 78155-3 LOINC Social History Type Status Start Date End Date Code Code Syst em Smoking History Current every day smoker [address] Sex Male Medications Medication Start Date End Date Route Frequency Dose Code Code System Medication Instructions Home Meds SEROquel 100MG Oral Tablet 02/07/2017 Unknown ORAL BEDTIME 100 MILLIGRAMS 292591 RxNorm TAKE 100 MILLIGRAMS ORAL BEDTIME lamoTRIgine 100MG Oral Tablet 02/07/2017 3 ORAL TWICE A DAY 100 MILLIGRAMS 553576 RxNorm TAKE 100 MILLIGRAMS ORAL TWICE A DAY Mapap 325MG Oral Tablet 02/07/2017 3 BY MOUTH NEEDED EVERY 4 HOURS 650 MILLIGRAMS 564483 RxNorm TAKE 650 MILLIGRAMS BY MOUTH NEEDED EVERY 4 HOURS Thera-M Enhanced 90MG-0.03MG-0 .15MG-4 Oral Tablet 09/25/2017 Unknown BY MOUTH DAILY WITH FOOD 1 TABLET 575992 RxNorm TAKE 1 TABLET BY MOUTH DAILY WITH FOOD EC Naproxen 500MG Oral Tablet, Enteric Coated 04/25/2021 3 ORAL TWICE A DAY 1 TABLET 754085 RxNorm TAKE 1 TABLET ORAL TWICE A [...] Date Status Code Code System PNEUMONIA active 807854930 SNOMED-CT COPD active 78711167 SNOMED-CT LYMPHOMA active 242763999 SNOMED-CT DIAZ'S CYST OF KNEE active 665340467 SNOMED-CT RIGHT TESTICULAR PAIN active 19610397 994412530 SNOMED-CT ALCOHOL WITHDRAWAL 09/08/2020 resolved 446040366 SNOMED-CT Allergies and Adverse Reactions Allergy Substance Reaction Severity Start Date Concern Status Co de Code System MIRTAZAPINE Active 63623 RxNorm WELLBUTRIN Seizure (SNOMED-CT: 93209476) Severe Active 73723 RxNorm Plan of Treatment Pre-Op Testing 10/07/2020 [...]
--- OUTSIDE RECORDS SUMMARY | 2024-02-03 22:25 | XMS_ITS ---
Author Organization Unknown Address [address], [place] [phone] Phone Care Team Providers Care Prop Setter Name Role Phone ARCE GEOR[place]IA Attending Unavailable CATRACHO Jain Primary Unavailable Results COMPREHENSIVE METABOLIC PANE L (CMP) - Collect Date/Time: 09/02/2021 15:40 ID: [id number] [address] [place], [place], [address] LOINC: 76756-2 Test Value Unit Reference Range Code Code [...] H=34 2028-9 LOINC ANION GAP 7.4 mmol/L 84941-2 LOINC CALCIUM SERUM 9.2 mg/dL L=8.2 H=10.2 44026-4 LOINC BILIRUBIN TOTAL 0.3 mg/dL L=0.0 H=1.3 1975-2 LOINC ALK. PHOS. 77 U/L L=46 H=116 6768-6 LOINC SGOT (AST) 17 U/L L=15 H=37 1920-8 LOINC SGPT (ALT) 26 U/L L=12 H=78 1742-6 LOINC TOTAL PROTEIN 7.5 gm/dL L=6.0 H=8.0 2885-2 LOINC ALBUMIN 3.9 gm/dL L=3.4 H=5.0 1751-7 LOINC AGE 56 years eGFR (non-Afr.Amer.) 98 mL/min 13105-4 LOINC eGFR (Afr-Cambodian) 118 mL/min 38828-5 LOINC HEP B SURF ANTIGEN* - [facility] t Date/Time: 09/02/2021 15:40 ID: [id number] [address] [place] [place] [address], [id number] LOINC: 5196-1 Test Value Unit Reference Range Code Code System Flag Hep B Surface Ag Negative Negative HEP B CORE ANTIBODY TOTAL - Collect Date/Time: 09/02/2021 15:40 ID: [id number] [address] [place] [address], [id number] LOINC: 10154-5 Test Value Unit Reference Range Code Code System Flag Hep B Core Antibody Negative Negative HEP B SURF ANTIBODY* - [facility] ct Date/Time: 09/02/2021 15:40 ID: [id number] [address] [place] [address], [id number] LOINC: 99593-5 Test Value Unit Reference Range Code Code System Flag Hep B Surface Ab Negative See Note HBs Antibody, Quant 6.4 mIU/mL See Note HIV 1/2 ANTIGEN AND ANTIBODY SCREEN - Collect Date/Time: 09/02/2021 15:40 ID: [id number] [address] [place] [address], [id number] LOINC: 56114-4 Test Value Unit Reference Range Code Code System Flag HIV 1/2 Antigen andAntibody Negative Negative GGT (GAMMA GLUTAMYL TRANSFER ASE) - Collect Date/Time: 09/02/2021 15:40 ID: [id number] [address] [place], [place], [id number] LOINC: 2324-2 Test Value Unit Reference Range Code Code System Flag Gamma GT 16 15-73 CBC W/ DIFFERENTIAL* - [facility] ct Date/Time: 09/02/2021 15:40 ID: [id number] [address] [place], [place], [address] LOINC: 83751-8 Test Value Unit Reference Range Code Code System Flag WBC 8.85 th/cmm L=5.00 H=10.00 6690-2 LOINC NEUT % 71.4 % L=40.0 H=80.0 LYMPH % 17.2 % L=10.0 H=50.0 MONO % 8.0 % L=2.0 H=12.0 17924-7 LOINC EOS % 2.5 % L=0.0 H=8.0 BASO % 0.6 % L=0.0 H=3.0 IG % 0.3 % L=0.0 H=1.1 2514-8 LOINC NRBC % 0.0 % L=0.0 H=0.0 36165-5 LOINC NEUT abs count 6.3 th/cmm L=1.6 H=8.4 751-8 LOINC LYMPH abs count 1.5 th/cmm L=1.5 H=4.0 731-0 LOINC MONO abs count 0.7 th/cmm L=0.2 H=1.0 742-7 LOINC EOS abs count 0.2 th/cmm L=0.0 H=0.5 711-2 LOINC BASO abs count 0.1 th/cmm L=0.0 H=0.2 704-7 LOINC IG abs count 0.0 th/cmm L=0.0 H=0.1 47901-0 LOINC NRBC abs count 0.0 mil/cmm L=0.0 H=0.0 79974-9 LOINC RBC 4.58 mil/cmm L=4.30 H=6.20 789-8 [...] Smoking History Current every day smoker [address] Sex Male Medications Medication Start Date End Date Route Frequency Dose Code Code System Medication Instructions Home Meds SEROquel 100MG Oral Tablet 02/07/2017 Unknown ORAL BEDTIME 100 MILLIGRAMS 102381 RxNorm TAKE 100 MILLIGRAMS ORAL BEDTIME lamoTRIgine 100MG Oral Tablet 02/07/2017 3 ORAL TWICE A DAY 100 MILLIGRAMS 619829 RxNorm TAKE 100 MILLIGRAMS ORAL TWICE A DAY Mapap 325MG Oral Tablet 02/07/2017 3 BY MOUTH NEEDED EVERY 4 HOURS 650 MILLIGRAMS 640642 RxNorm TAKE 650 MILLIGRAMS BY MOUTH NEEDED EVERY 4 HOURS Thera-M Enhanced 90MG-0.03MG-0 .15MG-4 Oral Tablet 09/25/2017 Unknown BY MOUTH DAILY WITH FOOD 1 TABLET 182742 RxNorm TAKE 1 TABLET BY MOUTH DAILY WITH FOOD EC Naproxen 500MG Oral Tablet, Enteric Coated 04/25/2021 3 ORAL TWICE A DAY 1 TABLET 023255 RxNorm TAKE 1 TABLET ORAL TWICE A [...] Date Status Code Code System PNEUMONIA active 318569702 SNOMED-CT COPD active 23866762 SNOMED-CT LYMPHOMA active 049626227 SNOMED-CT DIAZ'S CYST OF KNEE active 684609494 SNOMED-CT RIGHT TESTICULAR PAIN active 75223887 577024658 SNOMED-CT ALCOHOL WITHDRAWAL 09/08/2020 resolved 773804312 SNOMED-CT Allergies and Adverse Reactions Allergy Substance Reaction Severity Start Date Concern Status Co de Code System MIRTAZAPINE Active 88350 RxNorm WELLBUTRIN Seizure (SNOMED-CT: 21062729) Severe Active 26917 RxNorm Plan of Treatment Pre-Op Testing 10/07/2020 Pre-Op Covid-19 Testing 07/04/2020 Pre-Op Covid-19 Testing 06/19/2020 Pre-Op Covid-19 Testing 04/30/2020 Pre-Op Covid-19 Testing 05/03/2020 NM MPI STR/RST 04/14/2023 US RENAL 07/08/2021 X-RAY 06/19/2021 PSG NIGHT 05/05/2021 Encounters Encounter Diagnosis Start Date Code Code Sys tem Opioid dependence 09/02/2021 74155810 SNOMED-CT Personal Care Team Section Performer Name Performer Role Active Date Inactive Geovany navas
--- OUTSIDE RECORDS SUMMARY | 2024-02-03 22:25 | XMS_ITS ---
Author Organization Unknown Address [address] [place] [phone] Phone Care Team Providers Care Petroleum Transport Driver Name Role Phone CHU Jain Attending Unavailable GISELA Zaidi Primary Unavailable Results XR FOOT 3V LT* - Completed: 05/04/2022 14:22 LOINC: [facility] [place], [place] [address] PACS CAPSULE FILLER REPORT Patient Name: ZEESHAN ALMODOVAR MRN: Sex: : Age: [id number] M 1965 [id number] Account: Accession: Admit: StayType: [id number] 05/04/2022 CLINIC Ordered: Order ID: Submitted: Ordering Provider: 05/04/2022 13:41 [id number] BSK MENDOZA SAGE Completed: Technologist: Resulted: 05/04/2022 [...] Smoking History Current every day smoker [address] Sex Male Medications Medication Start Date End Date Route Frequency Dose Code Code System Medication Instructions Home Meds SEROquel 100MG Oral Tablet 02/07/2017 Unknown ORAL BEDTIME 100 MILLIGRAMS 356517 RxNorm TAKE 100 MILLIGRAMS ORAL BEDTIME lamoTRIgine 100MG Oral Tablet 02/07/2017 3 ORAL TWICE A DAY 100 MILLIGRAMS 460880 RxNorm TAKE 100 MILLIGRAMS ORAL TWICE A DAY Mapap 325MG Oral Tablet 02/07/2017 3 BY MOUTH NEEDED EVERY 4 HOURS 650 MILLIGRAMS 892120 RxNorm TAKE 650 MILLIGRAMS BY MOUTH NEEDED EVERY 4 HOURS Thera-M Enhanced 90MG-0.03MG-0 .15MG-4 Oral Tablet 09/25/2017 Unknown BY MOUTH DAILY WITH FOOD 1 TABLET 724814 RxNorm TAKE 1 TABLET BY MOUTH DAILY WITH FOOD EC Naproxen 500MG Oral Tablet, Enteric Coated 04/25/2021 3 ORAL TWICE A DAY 1 TABLET 917286 RxNorm TAKE 1 TABLET ORAL TWICE A [...] Date Status Code Code System PNEUMONIA active 161812751 SNOMED-CT COPD active 88558507 SNOMED-CT LYMPHOMA active 621662359 SNOMED-CT DIAZ'S CYST OF KNEE active 889917747 SNOMED-CT RIGHT TESTICULAR PAIN active 74930028 430200516 SNOMED-CT ALCOHOL WITHDRAWAL 09/08/2020 resolved 475406216 SNOMED-CT Allergies and Adverse Reactions Allergy Substance Reaction Severity Start Date Concern Status Co de Code System MIRTAZAPINE Active 24894 RxNorm WELLBUTRIN Seizure (SNOMED-CT: 50842773) Severe Active 20293 RxNorm Plan of Treatment Pre-Op Testing 10/07/2020 Pre-Op Covid-19 Testing 07/04/2020 Pre-Op Covid-19 Testing 06/19/2020 Pre-Op Covid-19 Testing 04/30/2020 Pre-Op Covid-19 Testing 05/03/2020 NM MPI STR/RST 04/14/2023 US RENAL 07/08/2021 X-RAY 06/19/2021 PSG NIGHT 05/05/2021 Encounters Encounter Diagnosis Start Date Code Code Sys tem 05/04/2022 [id number] SNOMED-CT Personal Care Team Section Performer Name Performer Role Active Date Inactive Geovany navas
--- OUTSIDE RECORDS SUMMARY | 2024-02-03 22:26 | XMS_ITS ---
Author Organization Unknown Address [address] [place], [place] [phone] Phone Care Team Providers Care Cyber Systems Operations Specialist Name Role Phone CHU Jain Attending Unavailable GISELA KATRINA Dyan Primary Unavailable Social History Type Status Start Date End Date Code Code Syst em Smoking History Current every day smoker [address] Sex Male Vital Signs Vital Sign Value Unit [place] Value [place] Unit Date/Time Recent/Initial? Code Code System Body Mass Index 24.46 kg/m2 09/15/2022 17:25 Initial 06262- 5 INC Body Surface Area 1.72 m2 09/15/2022 17:25 Initial 3140-1 LOINC Height 163.1950 cm 64.25 in 09/15/2022 17:25 Initial 8302-2 LOINC Weight 65.14 kg 143.60 lbs 09/15/2022 17:25 Initial 26101- 7 [facility]ations Medication Start Date End Date Route Frequency Dose Code Code System Medication Instructions Home Meds SEROquel 100MG Oral Tablet 02/07/2017 Unknown ORAL BEDTIME 100 MILLIGRAMS 700077 RxNorm TAKE 100 MILLIGRAMS ORAL BEDTIME Thera-M Enhanced 90MG-0.03MG -0.15MG-4 Oral Tablet 09/25/2017 Unknown BY MOUTH DAILY WITH FOOD 1 TABLET 791099 RxNorm TAKE 1 TABLET BY MOUTH DAILY [...] Date Status Code Code System PNEUMONIA active 411765138 SNOMED-CT COPD active 71593578 SNOMED-CT LYMPHOMA active 871132728 SNOMED-CT DIAZ'S CYST OF KNEE active 416484297 SNOMED-CT RIGHT TESTICULAR PAIN active 15905386 846613155 SNOMED-CT ALCOHOL WITHDRAWAL 09/08/2020 resolved 802336566 SNOMED-CT Allergies and Adverse Reactions Allergy Substance Reaction Severity Start Date Concern Status Co de Code System MIRTAZAPINE Active 06347 RxNorm WELLBUTRIN Seizure (SNOMED-CT: 22688991) Severe Active 78566 RxNorm Plan of Treatment Pre-Op Testing 10/07/2020 Pre-Op Covid-19 Testing 07/04/2020 Pre-Op Covid-19 Testing 06/19/2020 Pre-Op Covid-19 Testing 04/30/2020 Pre-Op Covid-19 Testing 05/03/2020 NM MPI STR/RST 04/14/2023 US RENAL 07/08/2021 X-RAY 06/19/2021 PSG NIGHT 05/05/2021 Encounters Encounter Diagnosis Start Date Code Code Sys tem Refusal of treatment by patient 09/23/2022 680494918 SNOMED-CT Personal Care Team Section Performer Name Performer Role Active Date Inactive Da te
--- OUTSIDE RECORDS SUMMARY | 2024-02-03 22:26 | XMS_ITS ---
Author Organization Unknown Address [address], [place] [phone] Phone Care Team Providers Care Painter Ski Edge Name Role Phone CALOS BAIG Registered Nurse Mike Garcia Attending Unavailable MARIUSZ Zaidi [facility] Unavailable GISELA Zaidi Primary Unavailable UNLISTED PROVIDER - REQUESTED Xhandoff Un available Social History Type Status Start Date End Date Code Code Syst em Smoking History Current every day smoker [address] Sex Male Vital Signs Vital Sign Value Unit [place] Value [place] Unit Date/Time Recent/Initial? Code Code System Body Mass Index 23.17 kg/m2 06/27/2022 18:55 Initial 76086 -5 [facility] Systolic Blood Pressure 149 mm[Hg] 06/27/2022 18:55 Initial 8480- 6 LOINC Diastolic Blood Pressure 92 mm[Hg] 06/27/2022 18:55 Initial 8462- 4 [facility] Body Surface Area 1.66 m2 06/27/2022 18:55 Initial 3140- 1 LOINC Height 162.560 0 cm 64.00 in 06/27/2022 18:55 Initial 8302- 2 INC O2 Saturation 96 % 2022 18:55 Initial 96500 -5 [facility] Pulse 102.0 /min 06/27/2022 18:55 Initial 8867- 4 [facility] Respiration 18 /min 06/27/19 18:55 Initial 9279- 1 LOINC Temperature 36.9 Celena 98.4 F 06/27/19 18:55 Initial 8310- 5 LOINC Weight 61.23 kg 135.00 lbs 06/27/2022 18:55 Initial 29251 -7 [facility] Medications Medication Start Date End Date Route Frequency Dose Code Code System Medication Instructions Home Meds SEROquel 100MG Oral Tablet 02/07/2017 Unknown ORAL BEDTIME 100 MILLIGRAMS 749204 RxNorm TAKE 100 MILLIGRAMS ORAL BEDTIME lamoTRIgine 100MG Oral Tablet 02/07/2017 3 ORAL TWICE A DAY 100 MILLIGRAMS 206677 RxNorm TAKE 100 MILLIGRAMS ORAL TWICE A DAY Mapap 325MG Oral Tablet 02/07/2017 3 BY MOUTH NEEDED EVERY 4 HOURS 650 MILLIGRAMS 034911 RxNorm TAKE 650 MILLIGRAMS BY MOUTH NEEDED EVERY 4 HOURS Thera-M Enhanced 90MG-0.03MG-0 .15MG-4 Oral Tablet 09/25/2017 Unknown BY MOUTH DAILY WITH FOOD 1 TABLET 541363 RxNorm TAKE 1 TABLET BY MOUTH DAILY WITH FOOD EC Naproxen 500MG Oral Tablet, Enteric Coated 04/25/2021 3 ORAL TWICE A DAY 1 TABLET 072644 RxNorm TAKE 1 TABLET ORAL TWICE A [...] Date Status Code Code System PNEUMONIA active 855831924 SNOMED-CT COPD active 14385215 SNOMED-CT LYMPHOMA active 356164522 SNOMED-CT DIAZ'S CYST OF KNEE active 236756136 SNOMED-CT RIGHT TESTICULAR PAIN active 67419357 034412281 SNOMED-CT ALCOHOL WITHDRAWAL 09/08/2020 resolved 469463706 SNOMED-CT Allergies and Adverse Reactions Allergy Substance Reaction Severity Start Date Concern Status Co de Code System MIRTAZAPINE Active 45364 RxNorm WELLBUTRIN Seizure (SNOMED-CT: 35375735) Severe Active 46402 RxNorm Plan of Treatment Pre-Op Testing 10/07/2020 [...]
--- OUTSIDE RECORDS SUMMARY | 2024-02-03 22:26 | XMS_ITS ---
Author Organization Unknown Address [address] [place] [phone] Phone Care Team Providers Care Room Attendant Name Role Phone FILEMON DICKERSON Registered Nurse Unavailable BALDEMAR Callaway Attending Unavailable MARIUSZ Zaidi [facility] Unavailable GISELA Zaidi Primary Unavailable UNLISTED PROVIDER - REQUESTED Xhandoff Un available Results US TESTICULAR - Completed: 0 07/01/2022 15:55 LOINC: [facility] [place], [place] [address] PACS PATTERNMAKER METAL BENCH REPORT Patient Name: BAILEE ALMODOVARTHEODORA Rios MRN: Sex: : Age: [id number] M 1965 57 Account: Accession: Admit: StayType: [id number] 07/01/2022 E/R Ordered: Order ID: Submitted: Ordering Provider: 07/01/2022 14:36 09500 TRAV PARHAM Completed: Technologist: Resulted: 07/01/2022 15:55 [...] Smoking History Current every day smoker [address] Sex Male Vital Signs Vital Sign Value Unit [place] Value [place] Unit Date/Time Recent/Initial? Code Code System Body Mass Index 23.88 kg/m2 07/01/2022 14:22 Initial 10312 -5 [facility] Systolic Blood Pressure 162 mm[Hg] 07/01/2022 14:22 Initial 8480- 6 LOINC Diastolic Blood Pressure 97 mm[Hg] 07/01/2022 14:22 Initial 8462- 4 LOINC Body Surface Area 1.69 m2 07/01/2022 14:22 Initial 3140- 1 LOINC Height 162.560 0 cm 64.00 in 07/01/2022 14:22 Initial 8302- 2 LOINC O2 Saturation 98 % 2022 14:22 Initial 53513 -5 LOINC Pulse 97.0 /min 07/01/2022 14:22 Initial 8867- 4 LOINC Respiration 20 /min 07/01/19 14:22 Initial 9279- 1 LOINC Temperature 36.7 Celena 98.1 F 07/01/19 14:22 Initial 8310- 5 LOINC Weight 63.10 kg 139.11 lbs 07/01/2022 14:22 Initial 76209 -7 [facility] Medications Medication Start Date End Date Route Frequency Dose Code Code System Medication Instructions Home Meds SEROquel 100MG Oral Tablet 02/07/2017 Unknown ORAL BEDTIME 100 MILLIGRAMS 221488 RxNorm TAKE 100 MILLIGRAMS ORAL BEDTIME Mapap 325MG Oral Tablet 02/07/2017 3 BY MOUTH NEEDED EVERY 4 HOURS 650 MILLIGRAMS 260921 RxNorm TAKE 650 MILLIGRAMS BY MOUTH NEEDED EVERY 4 HOURS Thera-M Enhanced 90MG-0.03MG -0.15MG-4 Oral Tablet 09/25/2017 Unknown BY MOUTH DAILY WITH FOOD 1 TABLET 535269 RxNorm TAKE 1 TABLET BY MOUTH DAILY [...] Code Pantera monson Strapping; Knee 07/01/2022 completed 69395 CPT Problems Problem Start Date Resolved Date Status Code Code System PNEUMONIA active 255231943 SNOMED-CT COPD active 51441785 SNOMED-CT LYMPHOMA active 923897614 SNOMED-CT NEFF'S CYST OF KNEE active 763716385 SNOMED-CT RIGHT TESTICULAR PAIN active 72819010 544162648 SNOMED-CT ALCOHOL WITHDRAWAL 09/08/2020 resolved 378279884 SNOMED-CT Allergies and Adverse Reactions Allergy Substance Reaction Severity Start Date Concern Status Co de Code System MIRTAZAPINE Active 72985 RxNorm WELLBUTRIN Seizure (SNOMED-CT: 39452648) Severe Active 62753 RxNorm Plan of Treatment Pre-Op Testing 10/07/2020 [...]
--- OUTSIDE RECORDS SUMMARY | 2024-02-03 22:26 | XMS_ITS ---
Author Organization Unknown Address [address], [place] [phone] Phone Care Team Providers Care Contract Programmer Name Role Phone CHU Jain Attending Unavailable GISELA Zaidi Primary Unavailable Social History Type Status Start Date End Date Code Code Syst em Smoking History Current every day smoker [address] Sex Male Medications Medication Start Date End Date Route Frequency Dose Code Code System Medication Instructions Home Meds SEROquel 100MG Oral Tablet 02/07/2017 Unknown ORAL BEDTIME 100 MILLIGRAMS 024197 RxNorm TAKE 100 MILLIGRAMS ORAL BEDTIME Mapap 325MG Oral Tablet 02/07/2017 3 BY MOUTH NEEDED EVERY 4 HOURS 650 MILLIGRAMS 571028 RxNorm TAKE 650 MILLIGRAMS BY MOUTH NEEDED EVERY 4 HOURS Thera-M Enhanced 90MG-0.03MG -0.15MG-4 Oral Tablet 09/25/2017 Unknown BY MOUTH DAILY WITH FOOD 1 TABLET 097902 RxNorm TAKE 1 TABLET BY MOUTH DAILY [...] Date Status Code Code System PNEUMONIA active 375897653 SNOMED-CT COPD active 35890146 SNOMED-CT LYMPHOMA active 316101148 SNOMED-CT DIAZ'S CYST OF KNEE active 005896561 SNOMED-CT RIGHT TESTICULAR PAIN active 63339108 749215770 SNOMED-CT ALCOHOL WITHDRAWAL 09/08/2020 resolved 056128102 SNOMED-CT Allergies and Adverse Reactions Allergy Substance Reaction Severity Start Date Concern Status Co de Code System MIRTAZAPINE Active 83045 RxNorm WELLBUTRIN Seizure (SNOMED-CT: 71743432) Severe Active 41630 RxNorm Plan of Treatment Pre-Op Testing 10/07/2020 Pre-Op Covid-19 Testing 07/04/2020 Pre-Op Covid-19 Testing 06/19/2020 Pre-Op Covid-19 Testing 04/30/2020 Pre-Op Covid-19 Testing 05/03/2020 NM MPI STR/RST 04/14/2023 US RENAL 07/08/2021 X-RAY 06/19/2021 PSG NIGHT 05/05/2021 Encounters Encounter Diagnosis Start Date Code Code Sys tem 08/24/2022 [id number] SNOMED-CT Personal Care Team Section Performer Name Performer Role Active Date Inactive Geovany navas
--- OUTSIDE RECORDS SUMMARY | 2024-02-03 22:26 | XMS_ITS ---
Author Organization Unknown Address [address] [place] [phone] Phone Care Team Providers Care Box Toe Flanger Stitchdowns Name Role Phone CHU Jain Attending Unavailable GISELA Zaidi Primary Unavailable Results CBC W/ DIFFERENTIAL* - Colle ct Date/Time: 09/07/2022 13:15 [facility] ID: [id number] [address] [place], [place], [address] LOINC: 38053-0 Test Value Unit Reference Range Code Code System Flag WBC 11.25 th/cmm L=5.00 H=10.00 6690-2 LOINC H NEUT % 73.1 % L=40.0 H=80.0 LYMPH % 15.6 % L=10.0 H=50.0 MONO % 7.7 % L=2.0 H=12.0 92431-6 LOINC EOS % 2.8 % L=0.0 H=8.0 BASO % 0.5 % L=0.0 H=3.0 IG % 0.3 % L=0.0 H=1.1 2514-8 LOINC NRBC % 0.0 % L=0.0 H=0.0 01317-8 LOINC NEUT abs count 8.2 th/cmm L=1.6 H=8.4 751-8 LOINC LYMPH abs count 1.8 th/cmm L=1.5 H=4.0 731-0 LOINC MONO abs count 0.9 th/cmm L=0.2 H=1.0 742-7 LOINC EOS abs count 0.3 th/cmm L=0.0 H=0.5 711-2 LOINC BASO abs count 0.1 th/cmm L=0.0 H=0.2 704-7 LOINC IG abs count 0.0 th/cmm L=0.0 H=0.1 87708-5 LOINC NRBC abs count 0.0 mil/cmm L=0.0 H=0.0 13348-4 LOINC RBC 4.40 mil/cmm L=4.30 H=6.20 789-8 [...] PANEL (BMP) - Collect Date/Time: 09/07/2022 13:15 [facility] ID: [id number] [address] [place], [place], [address] LOINC: 00557-9 Test Value Unit Reference Range Code Code [...] H=34 2028-9 LOINC ANION GAP 10.7 mmol/L 10215-5 LOINC CALCIUM SERUM 9.1 mg/dL L=8.2 H=10.2 34678-5 LOINC AGE 57 years eGFR (non-Afr.Amer.) 94 mL/min 30856-3 LOINC eGFR (Afr-[place]) 113 mL/min 66873-2 LOINC Social History Type Status Start Date End Date Code Code Syst em Smoking History Current every day smoker [address] Sex Male Medications Medication Start Date End Date Route Frequency Dose Code Code System Medication Instructions Home Meds SEROquel 100MG Oral Tablet 02/07/2017 Unknown ORAL BEDTIME 100 MILLIGRAMS 719825 RxNorm TAKE 100 MILLIGRAMS ORAL BEDTIME Mapap 325MG Oral Tablet 02/07/2017 3 BY MOUTH NEEDED EVERY 4 HOURS 650 MILLIGRAMS 308647 RxNorm TAKE 650 MILLIGRAMS BY MOUTH NEEDED EVERY 4 HOURS Thera-M Enhanced 90MG-0.03MG -0.15MG-4 Oral Tablet 09/25/2017 Unknown BY MOUTH DAILY WITH FOOD 1 TABLET 466386 RxNorm TAKE 1 TABLET BY MOUTH DAILY [...] Date Status Code Code System PNEUMONIA active 104752689 SNOMED-CT COPD active 68974035 SNOMED-CT LYMPHOMA active 389048959 SNOMED-CT DIAZ'S CYST OF KNEE active 023179451 SNOMED-CT RIGHT TESTICULAR PAIN active 87714530 131224990 SNOMED-CT ALCOHOL WITHDRAWAL 09/08/2020 resolved 979520001 SNOMED-CT Allergies and Adverse Reactions Allergy Substance Reaction Severity Start Date Concern Status Co de Code System MIRTAZAPINE Active 09659 RxNorm WELLBUTRIN Seizure (SNOMED-CT: 74420549) Severe Active 08639 RxNorm Plan of Treatment Pre-Op Testing 10/07/2020 Pre-Op Covid-19 Testing 07/04/2020 Pre-Op Covid-19 Testing 06/19/2020 Pre-Op Covid-19 Testing 04/30/2020 Pre-Op Covid-19 Testing 05/03/2020 NM MPI STR/RST 04/14/2023 US RENAL 07/08/2021 X-RAY 06/19/2021 PSG NIGHT 05/05/2021 Encounters Encounter Diagnosis Start Date Code Code Sys tem Pre-surgery evaluation 09/07/2022 603434332 FLACO D-CT Personal Care Team Section Performer Name Performer Role Active Date Inactive Da te
--- OUTSIDE RECORDS SUMMARY | 2024-02-03 22:27 | XMS_ITS ---
Author Organization Unknown Address [address], [place] [phone] Phone Care Team Providers Care Associate Broker Name Role Phone SHAINA FROST Attending Unavailable GISELA Zaidi Primary Unavailable Social History Type Status Start Date End Date Code Code Syst em Smoking History Current every day smoker [address] Sex Male Medications Medication Start Date End Date Route Frequency Dose Code Code System Medication Instructions Home Meds SEROquel 100MG Oral Tablet 02/07/2017 Unknown ORAL BEDTIME 100 MILLIGRAMS 565106 RxNorm TAKE 100 MILLIGRAMS ORAL BEDTIME Thera-M Enhanced 90MG-0.03MG -0.15MG-4 Oral Tablet 09/25/2017 Unknown BY MOUTH DAILY WITH FOOD 1 TABLET 341038 RxNorm TAKE 1 TABLET BY MOUTH DAILY [...] Date Status Code Code System PNEUMONIA active 481262761 SNOMED-CT COPD active 06202046 SNOMED-CT LYMPHOMA active 447619272 SNOMED-CT DIAZ'S CYST OF KNEE active 044764286 SNOMED-CT RIGHT TESTICULAR PAIN active 22213718 913686328 SNOMED-CT ALCOHOL WITHDRAWAL 09/08/2020 resolved 596383064 SNOMED-CT Allergies and Adverse Reactions Allergy Substance Reaction Severity Start Date Concern Status Co de Code System MIRTAZAPINE Active 68153 RxNorm WELLBUTRIN Seizure (SNOMED-CT: 86164171) Severe Active 74195 RxNorm Plan of Treatment Pre-Op Testing 10/07/2020 Pre-Op Covid-19 Testing 07/04/2020 Pre-Op Covid-19 Testing 06/19/2020 Pre-Op Covid-19 Testing 04/30/2020 Pre-Op Covid-19 Testing 05/03/2020 NM MPI STR/RST 04/14/2023 US RENAL 07/08/2021 X-RAY 06/19/2021 PSG NIGHT 05/05/2021 Encounters Encounter Diagnosis Start Date Code Code Sys tem Generalized idiopathic epile psy and epileptic syndromes, not intractable, without status epilepticus 10/01/2022 SNOMED-CT Personal Care Team Section Performer Name Performer Role Active Date Inactive Da te
--- OUTSIDE RECORDS SUMMARY | 2024-02-03 22:27 | XMS_ITS ---
Author Organization Unknown Address [address] [place] [phone] Phone Care Team Providers Care Licensed Physical Therapist Name Role Phone LUIS ARMANDO MENDENHALL NP [...] Transcribed by: EMEKA 11/22/20/13:15 D 11/22/2020 11:51:18 [id number] Electronically Reviewed and Signed By: CHRISTIE QUINTERO [...] by: CHRISTIE QUINTERO M.D. RADIOLOGIST Transcribed by: [facility] 11/22/20/13:20 D 11/22/2020 11:56:54 [id number] Electronically Reviewed and Signed By: CHRISTIE QUINTERO M.D. RADIOLOGIST 11/22/20 19:15 Copy for: SABRINA Garcia MD via fax Social History Type Status Start Date End Date Code Code Syst em Smoking History Current every day smoker 624129840 SNOMED CT Smoking History Current every day smoker [address] Sex Male Medications Medication Start Date End Date Route Frequency Dose Code Code System Medication Instructions Home Meds SEROquel 100MG Oral Tablet 02/07/2017 Unknown ORAL BEDTIME 100 MILLIGRAMS 455918 RxNorm TAKE 100 MILLIGRAMS ORAL BEDTIME lamoTRIgine 100MG Oral Tablet 02/07/2017 3 ORAL TWICE A DAY 100 MILLIGRAMS 080023 RxNorm TAKE 100 MILLIGRAMS ORAL TWICE A DAY Mapap 325MG Oral Tablet 02/07/2017 3 BY MOUTH NEEDED EVERY 4 HOURS 650 MILLIGRAMS 263740 RxNorm TAKE 650 MILLIGRAMS BY MOUTH NEEDED EVERY 4 HOURS Thera-M Enhanced 90MG-0.03MG-0 .15MG-4 Oral Tablet 09/25/2017 Unknown BY MOUTH DAILY WITH FOOD 1 TABLET 065027 RxNorm TAKE 1 TABLET BY MOUTH DAILY WITH FOOD EC Naproxen 500MG Oral Tablet, Enteric Coated 04/25/2021 3 ORAL TWICE A DAY 1 TABLET 913654 RxNorm TAKE 1 TABLET ORAL TWICE A [...] Date Status Code Code System PNEUMONIA active 523075322 SNOMED-CT COPD active 00387624 SNOMED-CT LYMPHOMA active 022195133 SNOMED-CT DIAZ'S CYST OF KNEE active 189317164 SNOMED-CT RIGHT TESTICULAR PAIN active 27178894 773129038 SNOMED-CT ALCOHOL WITHDRAWAL 09/08/2020 resolved 766492929 SNOMED-CT Allergies and Adverse Reactions Allergy Substance Reaction Severity Start Date Concern Status Co de Code System MIRTAZAPINE Active 41297 RxNorm WELLBUTRIN Seizure (SNOMED-CT: 09892646) Severe Active 52229 RxNorm Plan of Treatment Pre-Op Testing 10/07/2020 [...]
--- OUTSIDE RECORDS SUMMARY | 2024-02-03 22:27 | XMS_ITS ---
Author Organization Unknown Address [address] [place] [phone] Phone Care Team Providers Care Nca Certified Concierge Name Role Phone JOSE M KIDD MD Attending Unavailable SABRINA Garcia MD Primary Unavailable Results BASIC METABOLIC PANEL (BMP) - Collect Date/Time: 11/08/2020 23:20 [facility] ID: [id number] [address] [place], [place], [address] LOINC: 54908-8 Test Value Unit Reference Range Code Code [...] H=34 2028-9 LOINC ANION GAP 8.4 mmol/L 49769-0 LOINC CALCIUM SERUM 8.9 mg/dL L=8.2 H=10.2 24637-6 LOINC AGE 55 years eGFR (non-Afr.Amer.) 103 mL/min 98418-5 LOINC eGFR (Afr-[place]ghan) > 120 mL/min 64280-5 [facility]. - Collect Da te/Time: 11/08/2020 23:20 [facility] ID: [id number] [address] [place], [place], [address] LOINC: 03905-8 Test Value Unit Reference Range Code Code System Flag TROPONIN-I < 0.017 ng/mL L=0.000 H=0.060 42838-8 LOINC CBC W/ DIFFERENTIAL - Collec t Date/Time: 11/08/2020 23:20 [facility] ID: [id number] [address] [place], [place], [address] LOINC: 13561-4 Test Value Unit Reference Range Code Code System Flag WBC 11.26 th/cmm L=5.00 H=10.00 6690-2 LOINC H NEUT % 73.1 % L=40.0 H=80.0 LYMPH % 14.8 % L=10.0 H=50.0 MONO % 8.6 % L=2.0 H=12.0 90448-3 LOINC EOS % 2.8 % L=0.0 H=8.0 BASO % 0.4 % L=0.0 H=3.0 IG % 0.3 % L=0.0 H=1.1 2514-8 LOINC NRBC % 0.0 % L=0.0 H=0.0 99434-8 LOINC NEUT abs count 8.2 th/cmm L=1.6 H=8.4 751-8 LOINC LYMPH abs count 1.7 th/cmm L=1.5 H=4.0 731-0 LOINC MONO abs count 1.0 th/cmm L=0.2 H=1.0 742-7 LOINC EOS abs count 0.3 th/cmm L=0.0 H=0.5 711-2 LOINC BASO abs count 0.0 th/cmm L=0.0 H=0.2 704-7 LOINC IG abs count 0.0 th/cmm L=0.0 H=0.1 99987-8 LOINC NRBC abs count 0.0 mil/cmm L=0.0 H=0.0 39956-5 LOINC RBC 3.88 mil/cmm L=4.30 H=6.20 789-8 [...] D Tuesday, November 10, 2020 4:20:18 PM [id number] Electronically Reviewed and Signed By: OLY THAKKAR M.D. RADIOLOGIST 11/11/20 12:36 Copy for: JOSE M KIDD MD via modem Copy for: SABRINA Garcia MD via fax DISCHARGED Social History Type Status Start Date End Date Code Code Syst em Smoking History Current every day smoker 883059264 SNOMED CT Smoking History Current every day smoker [address] Sex Male Medications Medication Start Date End Date Route Frequency Dose Code Code System Medication Instructions Home Meds SEROquel 100MG Oral Tablet 02/07/2017 Unknown ORAL BEDTIME 100 MILLIGRAMS 978337 RxNorm TAKE 100 MILLIGRAMS ORAL BEDTIME lamoTRIgine 100MG Oral Tablet 02/07/2017 3 ORAL TWICE A DAY 100 MILLIGRAMS 999042 RxNorm TAKE 100 MILLIGRAMS ORAL TWICE A DAY Mapap 325MG Oral Tablet 02/07/2017 3 BY MOUTH NEEDED EVERY 4 HOURS 650 MILLIGRAMS 256244 RxNorm TAKE 650 MILLIGRAMS BY MOUTH NEEDED EVERY 4 HOURS Thera-M Enhanced 90MG-0.03MG-0 .15MG-4 Oral Tablet 09/25/2017 Unknown BY MOUTH DAILY WITH FOOD 1 TABLET 164613 RxNorm TAKE 1 TABLET BY MOUTH DAILY WITH FOOD EC Naproxen 500MG Oral Tablet, Enteric Coated 04/25/2021 3 ORAL TWICE A DAY 1 TABLET 018428 RxNorm TAKE 1 TABLET ORAL TWICE A [...] Date Status Code Code System PNEUMONIA active 925747870 SNOMED-CT COPD active 86696671 SNOMED-CT LYMPHOMA active 108726523 SNOMED-CT DIAZ'S CYST OF KNEE active 614066753 SNOMED-CT RIGHT TESTICULAR PAIN active 75182772 527695500 SNOMED-CT ALCOHOL WITHDRAWAL 09/08/2020 resolved 326484653 SNOMED-CT Allergies and Adverse Reactions Allergy Substance Reaction Severity Start Date Concern Status Co de Code System MIRTAZAPINE Active 84501 RxNorm WELLBUTRIN Seizure (SNOMED-CT: 02327759) Severe Active 51488 RxNorm Plan of Treatment Pre-Op Testing 10/07/2020 [...]
--- OUTSIDE RECORDS SUMMARY | 2024-02-03 22:27 | XMS_ITS ---
Author Organization Unknown Address [address] [place], [place] [phone] Phone Care Team Providers Care Fire Fighter [employer] Name Role Phone CHU Jain Attending Unavailable GISELA HERNDON Dyan Primary Unavailable Social History Type Status Start Date End Date Code Code Syst em Smoking History Current every day smoker [address] Sex Male Medications Medication Start Date End Date Route Frequency Dose Code Code System Medication Instructions Home Meds SEROquel 100MG Oral Tablet 02/07/2017 Unknown ORAL BEDTIME 100 MILLIGRAMS 640524 RxNorm TAKE 100 MILLIGRAMS ORAL BEDTIME Thera-M Enhanced 90MG-0.03MG -0.15MG-4 Oral Tablet 09/25/2017 Unknown BY MOUTH DAILY WITH FOOD 1 TABLET 994884 RxNorm TAKE 1 TABLET BY MOUTH DAILY [...] Date Status Code Code System PNEUMONIA active 001149767 SNOMED-CT COPD active 45209151 SNOMED-CT LYMPHOMA active 277822071 SNOMED-CT DIAZ'S CYST OF KNEE active 894264718 SNOMED-CT RIGHT TESTICULAR PAIN active 70187454 695536832 SNOMED-CT ALCOHOL WITHDRAWAL 09/08/2020 resolved 558266044 SNOMED-CT Allergies and Adverse Reactions Allergy Substance Reaction Severity Start Date Concern Status Co de Code System MIRTAZAPINE Active 67245 RxNorm WELLBUTRIN Seizure (SNOMED-CT: 86709294) Severe Active 47161 RxNorm Plan of Treatment Pre-Op Testing 10/07/2020 Pre-Op Covid-19 Testing 07/04/2020 Pre-Op Covid-19 Testing 06/19/2020 Pre-Op Covid-19 Testing 04/30/2020 Pre-Op Covid-19 Testing 05/03/2020 NM MPI STR/RST 04/14/2023 US RENAL 07/08/2021 X-RAY 06/19/2021 PSG NIGHT 05/05/2021 Encounters Encounter Diagnosis Start Date Code Code Sys tem 12/14/2023 [id number] SNOMED-CT Personal Care Team Section Performer Name Performer Role Active Date Inactive Da te
--- OUTSIDE RECORDS SUMMARY | 2024-02-03 22:28 | XMS_ITS ---
Author Organization Unknown Address [address], [place] [id number] Phone Care Team Providers Care Exchange Underwriting Consultant Name Role Phone SCOTT CONSTANTINO Attending Unavailable SABRINA Garcia MD Primary Unavailable Social History Type Status Start Date End Date Code Code Syst em Smoking History Current every day smoker 808529715 SNOMED CT Smoking History Current every day smoker [address] Sex Male Medications Medication Start Date End Date Route Frequency Dose Code Code System Medication Instructions Home Meds SEROquel 100MG Oral Tablet 02/07/2017 Unknown ORAL BEDTIME 100 MILLIGRAMS 135182 RxNorm TAKE 100 MILLIGRAMS ORAL BEDTIME lamoTRIgine 100MG Oral Tablet 02/07/2017 3 ORAL TWICE A DAY 100 MILLIGRAMS 274460 RxNorm TAKE 100 MILLIGRAMS ORAL TWICE A DAY Mapap 325MG Oral Tablet 02/07/2017 3 BY MOUTH NEEDED EVERY 4 HOURS 650 MILLIGRAMS 976187 RxNorm TAKE 650 MILLIGRAMS BY MOUTH NEEDED EVERY 4 HOURS Thera-M Enhanced 90MG-0.03MG-0 .15MG-4 Oral Tablet 09/25/2017 Unknown BY MOUTH DAILY WITH FOOD 1 TABLET 336955 RxNorm TAKE 1 TABLET BY MOUTH DAILY WITH FOOD EC Naproxen 500MG Oral Tablet, Enteric Coated 04/25/2021 3 ORAL TWICE A DAY 1 TABLET 177090 RxNorm TAKE 1 TABLET ORAL TWICE A [...] Date Status Code Code System PNEUMONIA active 311444578 SNOMED-CT COPD active 39994897 SNOMED-CT LYMPHOMA active 733578105 SNOMED-CT DIAZ'S CYST OF KNEE active 785458001 SNOMED-CT RIGHT TESTICULAR PAIN active 42062453 869757257 SNOMED-CT ALCOHOL WITHDRAWAL 09/08/2020 resolved 041878284 SNOMED-CT Allergies and Adverse Reactions Allergy Substance Reaction Severity Start Date Concern Status Co de Code System MIRTAZAPINE Active 30622 RxNorm WELLBUTRIN Seizure (SNOMED-CT: 29658361) Severe Active 38573 RxNorm Plan of Treatment Pre-Op Testing 10/07/2020 [...]
--- OUTSIDE RECORDS SUMMARY | 2024-02-03 22:28 | XMS_ITS ---
Author Organization Unknown Address [address], [place] [phone] Phone Care Team Providers Care Insulation Supervisor Name Role Phone LUIS ARMANDO MENDENHALL NP Attending Unavailable SABRINA Garcia MD Primary Unavailable Social History Type Status Start Date End Date Code Code Syst em Smoking History Current every day smoker 112305127 SNOMED CT Smoking History Current every day smoker [address] Sex Male Medications Medication Start Date End Date Route Frequency Dose Code Code System Medication Instructions Home Meds SEROquel 100MG Oral Tablet 02/07/2017 Unknown ORAL BEDTIME 100 MILLIGRAMS 546732 RxNorm TAKE 100 MILLIGRAMS ORAL BEDTIME lamoTRIgine 100MG Oral Tablet 02/07/2017 3 ORAL TWICE A DAY 100 MILLIGRAMS 100772 RxNorm TAKE 100 MILLIGRAMS ORAL TWICE A DAY Mapap 325MG Oral Tablet 02/07/2017 3 BY MOUTH NEEDED EVERY 4 HOURS 650 MILLIGRAMS 557800 RxNorm TAKE 650 MILLIGRAMS BY MOUTH NEEDED EVERY 4 HOURS Thera-M Enhanced 90MG-0.03MG-0 .15MG-4 Oral Tablet 09/25/2017 Unknown BY MOUTH DAILY WITH FOOD 1 TABLET 440202 RxNorm TAKE 1 TABLET BY MOUTH DAILY WITH FOOD EC Naproxen 500MG Oral Tablet, Enteric Coated 04/25/2021 3 ORAL TWICE A DAY 1 TABLET 526473 RxNorm TAKE 1 TABLET ORAL TWICE A [...] Date Status Code Code System PNEUMONIA active 813916446 SNOMED-CT COPD active 62487106 SNOMED-CT LYMPHOMA active 025754963 SNOMED-CT DIAZ'S CYST OF KNEE active 158898858 SNOMED-CT RIGHT TESTICULAR PAIN active 87256075 680371499 SNOMED-CT ALCOHOL WITHDRAWAL 09/08/2020 resolved 458727270 SNOMED-CT Allergies and Adverse Reactions Allergy Substance Reaction Severity Start Date Concern Status Co de Code System MIRTAZAPINE Active 96760 RxNorm WELLBUTRIN Seizure (SNOMED-CT: 77943156) Severe Active 94940 RxNorm Plan of Treatment Pre-Op Testing 10/07/2020 Pre-Op Covid-19 Testing 07/04/2020 Pre-Op Covid-19 Testing 06/19/2020 Pre-Op Covid-19 Testing 04/30/2020 Pre-Op Covid-19 Testing 05/03/2020 NM MPI STR/RST 04/14/2023 US RENAL 07/08/2021 X-RAY 06/19/2021 PSG NIGHT 05/05/2021 Encounters Encounter Diagnosis Start Date Code Code Sys tem Idiopathic osteoarthritis 01/03/2021 064683937 SN OMED-CT Personal Care Team Section Performer Name Performer Role Active Date Inactive Da te
--- OUTSIDE RECORDS SUMMARY | 2024-02-03 22:29 | XMS_ITS | Encounter Summary ---
Author Organization [facility] Address [address] [place] [address] Care Team Providers Care Senior Contracts Administrator Name Role Phone Lian Parnell CHEF HEAD Primary Care Provider [phone] Reason for Visit * Reason Onset Date Comments Results 02/02/2023 Encounter Details Date Type Department Care Team (Late st Contact Info) Description 02/02/2023 Telephone [facility] Cancer Treatment [place] [address] [place], [place] [address] Ed Brady MD [address] [facility] [address] [place] [address] Results Social History Tobacco Use [...] filedocumented in this encounter Care Teams Senior Contracts Administrator Relationship Specialty Start Date End Date Lian Parnell FNP [address] [place] [phone] PCP - General Family Medicine - Primary Care 09/16/21 CHARLENE URIOSTEGUI Pulmonary Disease 01/29/21 documented as of this encounter
--- OUTSIDE RECORDS SUMMARY | 2024-02-03 22:29 | XMS_ITS | Encounter Summary ---
Author Organization [facility] Address [address] [place] [address] Care Team Providers Care Special Needs Babysitter Name Role Phone Lian Parnell DEAD MAIL CHECKER Primary Care Provider [phone] Encounter Details Date Type Department Care Team (Late st Contact Info) Description 06/11/2023 Documentation Visit [facility] Treatment [place] [address] [place] [address] Krystal Sanchez, RN Social History Tobacco Use [...] on filedocumented in this encounter Care Teams Special Needs Babysitter Relationship Specialty Start Date End Date Lian Parnell [facility] [address] [place] [phone] PCP - General Family Medicine - Primary Care 09/16/21 CHARLENE URIOSTEGUI Pulmonary Disease 01/29/21 documented as of this encounter
--- OUTSIDE RECORDS SUMMARY | 2024-02-03 22:29 | XMS_ITS | Encounter Summary ---
Author Organization [facility] Address [address] [place] [address] Care Team Providers Care Tank Hoop Bender Name Role Phone Lian Parnell NOTCH MACHINE OPERATOR Primary Care Provider [phone] Reason for Visit * Reason Comments Cancer Encounter Details Date Type Department Care Team (Late st Contact Info) Description 06/11/2023 11:15 EST Nurse Only [facility] Cancer Treatment [place] [address] [place], [place] [address] Lymphocyte-rich Hodgkin lymphoma of lymph nodes of [...] note were not included. 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
--- OUTSIDE RECORDS SUMMARY | 2024-02-03 22:29 | XMS_ITS | Encounter Summary ---
Author Organization [facility] Address [address] [place] [address] Care Team Providers Care Plant And Instrument Engineer Name Role Phone Lian Parnell [employer] CRM DEVELOPER Primary Care Provider [phone] Reason for Visit * Reason Onset Date Comments Results 02/10/2023 Appointment Related 02/10/2023 Encounter Details Date Type Department Care Team (Late st Contact Info) Description 02/10/2023 Telephone [facility] Adult Hematology & Oncology [address] [place] [address] Jaxon Stephens MD [address] [place] [address] [address] [place] [phone] Results; Appointment Related Social History Tobacco Use [...] on filedocumented in this encounter Care Teams Plant And Instrument Engineer Relationship Specialty Start Date End Date Lian Parnell FNP [address] [place] [phone] PCP - General Family Medicine - Primary Care 09/16/21 CHARLENE URIOSTEGUI Pulmonary Disease 01/29/21 documented as of this encounter
--- OUTSIDE RECORDS SUMMARY | 2024-02-03 22:29 | XMS_ITS ---
Author Organization Unknown Address [address] [place], [place] [phone] Phone Care Team Providers Care Director Risk Name Role Phone KATLYN BURKETT Attending Unavailable CATRACHO DENT Primary Unavailable Social History Type Status Start Date End Date Code Code Syst em Smoking History Current every day smoker 997731758 SNOMED CT Smoking History Current every day smoker [address] Sex Male Medications Medication Start Date End Date Route Frequency Dose Code Code System Medication Instructions Home Meds SEROquel 100MG Oral Tablet 02/07/2017 Unknown ORAL BEDTIME 100 MILLIGRAMS 474281 RxNorm TAKE 100 MILLIGRAMS ORAL BEDTIME lamoTRIgine 100MG Oral Tablet 02/07/2017 3 ORAL TWICE A DAY 100 MILLIGRAMS 301049 RxNorm TAKE 100 MILLIGRAMS ORAL TWICE A DAY Mapap 325MG Oral Tablet 02/07/2017 3 BY MOUTH NEEDED EVERY 4 HOURS 650 MILLIGRAMS 738379 RxNorm TAKE 650 MILLIGRAMS BY MOUTH NEEDED EVERY 4 HOURS Thera-M Enhanced 90MG-0.03MG-0 .15MG-4 Oral Tablet 09/25/2017 Unknown BY MOUTH DAILY WITH FOOD 1 TABLET 126291 RxNorm TAKE 1 TABLET BY MOUTH DAILY WITH FOOD EC Naproxen 500MG Oral Tablet, Enteric Coated 04/25/2021 3 ORAL TWICE A DAY 1 TABLET 647472 RxNorm TAKE 1 TABLET ORAL TWICE A [...] Date Status Code Code System PNEUMONIA active 243834343 SNOMED-CT COPD active 82629489 SNOMED-CT LYMPHOMA active 328579358 SNOMED-CT DIAZ'S CYST OF KNEE active 492535446 SNOMED-CT RIGHT TESTICULAR PAIN active 29272438 312800487 SNOMED-CT ALCOHOL WITHDRAWAL 09/08/2020 resolved 483821816 SNOMED-CT Allergies and Adverse Reactions Allergy Substance Reaction Severity Start Date Concern Status Co de Code System MIRTAZAPINE Active 06153 RxNorm WELLBUTRIN Seizure (SNOMED-CT: 81876243) Severe Active 05014 RxNorm Plan of Treatment Pre-Op Testing 10/07/2020 Pre-Op Covid-19 Testing 07/04/2020 Pre-Op Covid-19 Testing 06/19/2020 Pre-Op Covid-19 Testing 04/30/2020 Pre-Op Covid-19 Testing 05/03/2020 NM MPI STR/RST 04/14/2023 US RENAL 07/08/2021 X-RAY 06/19/2021 PSG NIGHT 05/05/2021 Encounters Encounter Diagnosis Start Date Code Code Sys tem Refusal of treatment by patient 02/24/2021 817362415 SNOMED-CT Personal Care Team Section Performer Name Performer Role Active Date Inactive Geovany navas
--- OUTSIDE RECORDS SUMMARY | 2024-02-03 22:29 | XMS_ITS | Encounter Summary ---
Author Organization [facility] Address [address] [place] [address] Care Team Providers Care Furnace Repairer Name Role Phone Lian Parnell Primary Care Provider [phone] Encounter Details Date Type Department Care Team (Late st Contact Info) Description 11/03/2022 Orders Only [facility] [address] [place] [address] Albert Hinojosa Social History Tobacco Use Types [...] on filedocumented in this encounter Care Teams Furnace Repairer Relationship Specialty Start Date End Date Lian Parnell FNP [address] [place] [phone] PCP - General Family Medicine - Primary Care 09/16/21 CHARLENE URIOSTEGUI Pulmonary Disease 01/29/21 documented as of this encounter
--- OUTSIDE RECORDS SUMMARY | 2024-02-03 22:29 | XMS_ITS | Encounter Summary ---
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 The records are reviewed from [facility], Amair[place] and Dr. Stephens. Classic Hodgkin lymphoma, lymphocyte rich subtype. Stage IB 12/20/17 [facility] in follow up left lung [...] 06/14/2020 06/22/2020 Dr. Blanca Naik performed at [facility] right carpal tunnel surgery. A few [...] Imaging: PET CT EYE TO THIGH Order: [id number] Status: Final result Visible to patient: No (inaccessible in MyChart) Next appt: 08/09/2023 at 14:30 in Hematology and Oncology (Jaxon Stephens MD) Dx: Lymphocyte-rich Hodgkin lymphoma of l... 0 Result Notes Details Reading Physician Reading Date Result Priority Derek Shukla MD [phone] 02/02/2023 Narrative & Impression INDICATION: h/o [...] IMPRESSION No abnormal increased metabolic activity identified. [id number] I spent a total of 25 minutes on the date of this encounter meeting with the patient and reviewing documentation/coordinating care as described in the above note. No procedures were performed at the time of the visit. 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
--- OUTSIDE RECORDS SUMMARY | 2024-02-03 22:29 | XMS_ITS ---
Author Organization Unknown Address [address], [place] [phone] Phone Care Team Providers Care Grain Thresher Name Role Phone SHAINA MIKE Attending Unavailable CATRACHO DENT Primary Unavailable Social History Type Status Start Date End Date Code Code Syst em Smoking History Current every day smoker 628545715 SNOMED CT Smoking History Current every day smoker [address] Sex Male Medications Medication Start Date End Date Route Frequency Dose Code Code System Medication Instructions Home Meds SEROquel 100MG Oral Tablet 02/07/2017 Unknown ORAL BEDTIME 100 MILLIGRAMS 570390 RxNorm TAKE 100 MILLIGRAMS ORAL BEDTIME lamoTRIgine 100MG Oral Tablet 02/07/2017 3 ORAL TWICE A DAY 100 MILLIGRAMS 012906 RxNorm TAKE 100 MILLIGRAMS ORAL TWICE A DAY Mapap 325MG Oral Tablet 02/07/2017 3 BY MOUTH NEEDED EVERY 4 HOURS 650 MILLIGRAMS 465032 RxNorm TAKE 650 MILLIGRAMS BY MOUTH NEEDED EVERY 4 HOURS Thera-M Enhanced 90MG-0.03MG-0 .15MG-4 Oral Tablet 09/25/2017 Unknown BY MOUTH DAILY WITH FOOD 1 TABLET 286435 RxNorm TAKE 1 TABLET BY MOUTH DAILY WITH FOOD EC Naproxen 500MG Oral Tablet, Enteric Coated 04/25/2021 3 ORAL TWICE A DAY 1 TABLET 469151 RxNorm TAKE 1 TABLET ORAL TWICE A [...] Date Status Code Code System PNEUMONIA active 895285288 SNOMED-CT COPD active 47957300 SNOMED-CT LYMPHOMA active 891920083 SNOMED-CT DIAZ'S CYST OF KNEE active 475476378 SNOMED-CT RIGHT TESTICULAR PAIN active 35019780 614847333 SNOMED-CT ALCOHOL WITHDRAWAL 09/08/2020 resolved 541572209 SNOMED-CT Allergies and Adverse Reactions Allergy Substance Reaction Severity Start Date Concern Status Co de Code System MIRTAZAPINE Active 92306 RxNorm WELLBUTRIN Seizure (SNOMED-CT: 80237168) Severe Active 06672 RxNorm Plan of Treatment Pre-Op Testing 10/07/2020 [...]
--- OUTSIDE RECORDS SUMMARY | 2024-02-03 22:29 | XMS_ITS | Referral Summary ---
Author Organization [facility] Address [address] [place] [address] Care Team Providers Care Product Technician Name Role Phone Lian Parnell METAL BED ASSEMBLER Primary Care Provider [phone] Allergies Active Allergy Reactions Criticality Noted Date [...] 02/10/2023 - Patient has given permission for [facility] Adult Hemo/Onc verbally discuss the following information with *Hermelinda Ramirez* who has the following relationship to the patient: Spouse Purpose: ALL - Permission remains in effect until the patient elects to revoke it. Problem Noted Date Diagnosed Date Severe protein-calorie malnutrition ([facility]) Overview: <75% of estimated energy requirement for > or equal to 1 month, >10% weight loss in 6 months, Mild subcutaneous fat loss and Severe lean muscle loss is consistent with severe protein-calorie malnutrition in the setting of chronic illness (Timmy connors al, JPEN J Parenteral Enteral Nutr. 2012 September; 36(3): 273-83) Empyema ([facility]) 09/11/2020 Lymphocyte-rich Hodgkin lymp shanta of lymph nodes of axilla ([facility]) 06/13/2020 Overview: Classic Hodgkin lymphoma, lymphocyte [...] history. Followed by Dr Donta hernandez in [place]. - Scheduled for a yearly screening CT [...] ACR REPORTABLE INCIDENTALS: None Lian Dyan [facility] IMG CT ORDERABLES * HEPATITIS C AB W REFLEX TO HCV RNA BY PCR (09/02/2021 15:40 EDT) Hep C Antibody Negative Negative 09/03/2021 11:21 EDT [facility] Blood VENOUS BLOOD / Unknown 09/02/2021 15:40 EDT 09/02/2021 21:42 EDT Provider Outr Resulting Lab CHEMISTRY & BLOOD GAS ORDERABLES [facility] [address] [place] [address] from Last 3 Months or Most Recently Relevant to Health Maintenance Advance Directives For more information, please contact: [phone] * Full Code (Latest Code Status on File) Date Activated Date Inactivated Comments 05/01/2013 15:29 05/05/2013 15:55 Care Teams Product Technician Relationship Specialty Start Date End Date Lian Parnell FNP [address] [place] [phone] PCP - General Family Medicine - Primary Care 09/16/21 CHARLENE URIOSTEGUI Pulmonary Disease 01/29/21
--- OUTSIDE RECORDS SUMMARY | 2024-02-03 22:29 | XMS_ITS | Encounter Summary ---
Author Organization [facility] Address [address] [place] [address] Care Team Providers Care Laboratory Courier Name Role Phone Lian Parnell DIRECTOR DIABETES Primary Care Provider [phone] Reason for Visit * Reason Comments Follow-up Hodgkin lymphoma Encounter Details Date Type Department Care Team (Late st Contact Info) Description 02/25/2023 13:30 EDT Office Visit [facility] Adult Hematology & Oncology [address] [place] [address] Jaxon Stephens MD [address] [place] [address] [address] [place] [address] Lymphocyte-rich Hodgkin lymphoma of lymph [...] left axilla. Dr. Brady. -09/11/2020 admitted to [facility]: Right middle lobe pneumonia with empyema requiring [...] with empyema -09/11/2020 admitted via transfer to [facility] diagnosis of right middle lobe pneumonia and empyema. Pigtail catheter inserted TPA therapy initiated x4 cycles, additional pigtail was placed into more lateral collection. Pleural fluid grew strep milligray sensitive to penicillin treated with Augmentin for6 weeks. Pigtail catheter was removed prior to discharge -Needs follow-up CT chest mid November, referral back to Dr. Marko Jordan thoracic surgery at [facility]. ? 2: History of tobacco abuse. -12/29/2018 CT chest [place]. No malignancy. Left axilla showing a 1.3 cm lymph node shortness axis. - 11/22/2019 2 pack/day for 46 years for total of 42 pack to pack year history. Followed by Dr Donta hernandez in [place]. -Scheduled for a yearly screening CT chest [...] Impression: No abnormal increased metabolic activity identified. [id number] Assessment: 1: Hodgkin lymphoma lymphocyte range. Diagnosis [...] does smoke. This note was transcribed using [employer] voice recognition software, please excuse any ticket printer errors. Jaxon Stephens MD [facility] CC:Primary Care Provider: Lian Parnell [address] [place] [phone] CC: * Preston Mae RN - 02/25/2023 3720 EDT Procedures: - Venipuncture Performed by: PRESTON MAE RN Site Collected: Left Antecubital Space Volume Withdrawn: LAV EDTA 3.0 mL, [place] SST 8.5 mL and [place] Heparin ([facility]) 4.0 mL Patient Response:Patient [...] * (ABNORMAL) SED RATE (02/25/2023 13:54 EDT) [facility] Sed Rate 24(H) 0 - 20 mm/hr 02/25/2023 14:35 EDT [facility] Blood VENOUS BLOOD / Unknown Venipuncture / Unknown 02/25/2023 13:54 EDT 02/25/2023 13:54 EDT Jaxon Stephens MD HEMATOLOGY & PF4 ORD ERABLES [facility] [address] [place] [address] * (ABNORMAL) COMPREHENSIVE METABOLIC PANEL (CMP) (02/25/2023 13:54 EDT) [facility] Sodium 134(L) 136 - 145 mmol/L 02/25/2023 14:49 EDT [facility] Potassium 4.3 3.5 - 5.0 mmol/L 02/25/2023 14:49 [facility] Chloride 98 96 - 110 mmol/L 02/25/2023 14:49 [facility] CO2 Total 31 22 - 32 mmol/L 02/25/2023 14:49 [facility] Glucose 117(H) 70 - 99 mg/dl 02/25/2023 14:49 [facility] BUN 12 10 - 26 mg/dL 02/25/2023 14:49 [facility] Creatinine 0.77 0.66 - 1.25 mg/dL 02/25/2023 14:49 [facility] eGFR 103 >60 mL/min/1. 73m2 02/25/2023 14:49 [facility] Total Protein 7.2 6.3 - 8.2 g/dL 02/25/2023 14:49 [facility] Comment:The sample was colle cted in a [place] Heparin anticoagulated tube. An average positive bias of 6% with an individual sample bias up to 10% may be observed with heparin plasma results compared to serum results. Albumin 4.1 3.4 - 4.9 g/dL 02/25/2023 14:49 [facility] Alkaline Phosphatase 62 38 - 126 U/L 02/25/2023 14:49 [facility] AST 26 15 - 46 U/L 02/25/2023 14:49 [facility] ALT 21 <50 U/L 02/25/2023 14:49 [facility] Bilirubin, Total 0.5 <1.4 mg/dL 02/25/2023 14:49 [facility] Calcium 9.4 8.5 - 10.5 mg/dL 02/25/2023 14:49 [facility] Albumin/Globulin Ratio 1.3 1.0 - 2.5 g/dL 02/25/2023 14:49 [facility] Anion Gap 5 5 - 14 mmol/L 02/25/2023 14:49 [facility] Blood VENOUS BLOOD / Unknown Venipuncture / Unknown 02/25/2023 13:54 EDT 02/25/2023 13:54 EDT Jaxon Stephens MD CHEMISTRY & BLOOD GA S ORDERABLES [facility] [address] [place] [address] * (ABNORMAL) COMPLETE BLOOD COUNT AND DIFFERENTIAL (02/25/2023 13:54 EDT) WBC 9.62 4.00 - 10.40 K/cmm 02/25/2023 14:04 T [facility] HEMATOLOGY ONCOLOGY [facility] RBC 4.33(L) 4.36 - 5.78 M/cmm 02/25/2023 14:04 [facility] ONCOL[facility] Hemoglobin 14.4 13.8 - 17.3 g/dL 02/25/2023 14:04 [facility] ONCOL[facility]Y [facility] HCT 43.5 >=21.0 % 02/25/2023 14:04 [facility] MCV 101(H) 81 - 95 fL 02/25/2023 14:04 T [facility] ONCOLOG[facility] MCH 33.3(H) 27.6 - 33.0 pg 02/25/2023 14:04 [facility] MCHC 33.1 32.8 - 36.4 g/dL 02/25/2023 14:04 [facility] RDW-CV 13.7 <14.2 % 02/25/2023 14:04 [facility] RDW-SD 49.8(H) <46.0 fl 02/25/2023 14:04 [facility] PLT 337 141 - 377 K/cmm 02/25/2023 14:04 [facility] MPV 8.3(L) 9.5 - 12.7 fL 02/25/2023 14:04 [facility] HEMATOLOGY ONCOLOGY [facility] % Neutrophils 72.8 % 02/25/2023 14:04 [facility] HEMATOLOGY ONCOLOGY [facility] % Lymphocytes 16.4 % 02/25/2023 14:04 [facility] HEMATOLOGY ONCOLOGY [facility] % Monocytes 7.9 % 02/25/2023 14:04 [facility] HEMATOLOGY ONCOLOGY [facility] % Eosinophils 2.4 % 02/25/2023 14:04 [facility] ONCOLOGY [facility] % Basophils 0.5 % 02/25/2023 14:04 [facility] ONCOLOGY [facility] % Immature Grans 02/26/20 14:04 [facility] Absolute Neutrophils 7.00 2.20 - 8.85 K/cmm 02/25/2023 14:04 EDT [facility] HEMATOLOGY & ONCOLOGY [facility] Absolute Lymphocytes 1.58 1.09 - 3.30 K/cmm 02/25/2023 14:04 EDT [facility] HEMATOLOGY & ONCOLOGY [facility] Absolute Monocytes 0.76 0.10 - 0.80 K/cmm 02/25/2023 14:04 EDT [facility] HEMATOLOGY & ONCOLOGY [facility] Absolute Eosinophils 0.23 0.03 - 0.61 K/cmm 02/25/2023 14:04 EDT [facility] HEMATOLOGY & ONCOLOGY [facility] ABS Basophils 0.05 0.01 - 0.11 K/cmm 02/25/2023 14:04 EDT [facility] HEMATOLOGY ONCOLOGY [facility] Absolute Immature Grans 02/25/2023 14:04 EDT [facility] HEMATOLOGY & ONCOLOGY [facility] Type of Differential: Auto 02/25/2023 14:04 EDT [facility] & ONCOLOGY [facility] Blood VENOUS BLOOD / Unknown Venipuncture / Unknown 02/25/2023 13:54 EDT 02/25/2023 13:54 EDT Jaxon Stephens MD PACKAGES & DNA PROBE ORDERABLES [facility] HEMATOLOGY ONCOLOGY [facility] Medical Office Building [address], [address] documented in this encounter Visit Diagnoses [...] 09/02/2022 added in this encounter Care Teams Laboratory Courier Relationship Specialty Start Date End Date Lian Parnell FNP [address] [place] [address] PCP - General Family Medicine - Primary Care 09/16/21 CHARLENE URIOSTEGUI Pulmonary Disease 01/29/21 documented as of this encounter
--- OUTSIDE RECORDS SUMMARY | 2024-02-03 22:29 | XMS_ITS ---
Author Organization [facility] Address [address] [place] [address] Care Team Providers Care Point Of Care Specialist Name Role Phone Lian Parnell CAISSON WORKER Primary Care Provider [phone] Active Problems Patient Care Coordination No te Formatting of this note migh t be different from the original. 02/10/2023 - Patient has given permission for [facility] [place] verbally discuss the following information with *Heremlinda Ramirez* who has the following relationship to the patient: Spouse Purpose: ALL - Permission remains in effect until the patient elects to revoke it. Problem Noted Date Diagnosed Date Severe protein-calorie malnutrition ([facility]) Overview: <75% of estimated energy requirement for > or equal to 1 month, >10% weight loss in 6 months, Mild subcutaneous fat loss and Severe lean muscle loss is consistent with severe protein-calorie malnutrition in the setting of chronic illness (Timmy et al, JPEN J Parenteral Enteral Nutr. 2011; 36(3): 273-83) Empyema ([facility]) 09/11/2020 Lymphocyte-rich Hodgkin lymp shanta of lymph nodes of axilla ([facility]) 06/13/2020 Overview: Classic Hodgkin lymphoma, lymphocyte [...] history. Followed by Dr Donta hernandez [place]. - Scheduled for a yearly screening CT [...]
--- OUTSIDE RECORDS SUMMARY | 2024-02-03 22:29 | XMS_ITS | Clinical Summary ---
Author Organization [facility] Address [address] [place] [address] Care Team Providers Care Senior Mechanical Technician Name Role Phone Lian Parnell FLYING II INSTRUCTOR Primary Care Provider [phone] Allergies Active Allergy Reactions Criticality Noted Date [...] 02/10/2023 - Patient has given permission [place] [facility] [place] verbally discuss the following information with *Hermelinda Ramirez* who has the following relationship to the patient: Spouse Purpose: ALL - Permission remains in effect until the patient elects to revoke it. Problem Noted Date Diagnosed Date Severe protein-calorie malnutrition ([facility]) Overview: <75% of estimated energy requirement for > or equal to 1 month, >10% weight loss in 6 months, Mild subcutaneous fat loss and Severe lean muscle loss is consistent with severe protein-calorie malnutrition in the setting of chronic illness (Timmy connors al, JPEN J Parenteral Enteral Nutr. 2012 September; 36(3): 273-83) Empyema ([facility]) 09/11/2020 Lymphocyte-rich Hodgkin lymp shanta of lymph nodes of axilla ([facility]) 06/13/2020 Overview: Classic Hodgkin lymphoma, lymphocyte [...] of tobacco abuse. - 12/29/2018 CT chest [facility]. No malignancy. Left axilla showing a 1.3 cm lymph node shortness axis. - 11/22/2019 2 pack/day for 46 years for total of 42 pack to pack year history. Followed by Dr Donta hernandez in [place]. - Scheduled for a yearly screening CT [...] Medical History Date Comments ETOH abuse Seizures ([facility]) GERD (gastroesophageal reflux disease) Emphysema lung ([facility]) Emphysema of lung ([facility]) Anxiety Depression Lymphocyte-rich Hodgkin lymp shanta of lymph nodes of axilla ([facility]) 06/13/2020 Family History Relation Status Comments Father [...] deformities. ACR REPORTABLE INCIDENTALS: None Lian Parnell FLYING II INSTRUCTOR IMG CT ORDERABLES * HEPATITIS C AB W REFLEX TO HCV RNA BY PCR (09/02/2021 15:40 EDT) Hep C Antibody Negative Negative 09/03/2021 11:21 EDT [facility] Blood VENOUS BLOOD / Unknown 09/02/2021 15:40 EDT 09/02/2021 21:42 EDT Provider Outr Resulting Lab CHEMISTRY & BLOOD GAS ORDERABLES [facility] [address] [place] [address] from Last 3 Months or Most Recently Relevant to Health Maintenance Advance Directives For more information, please contact: [phone] * Full Code (Latest Code Status on File) Date Activated Date Inactivated Comments 05/01/2013 15:29 05/05/2013 15:55 Care Teams Senior Mechanical Technician Relationship Specialty Start Date End Date Lian Parnell FNP [address] [place] [address] PCP - General Family Medicine - Primary Care 09/16/21 CHARLENE URIOSTEGUI Pulmonary Disease 01/29/21
--- OUTSIDE RECORDS SUMMARY | 2024-02-03 22:29 | XMS_ITS ---
Author Organization Unknown Address [address] [place], [place] [id number] Phone Care Team Providers Care Community Product Specialist Name Role Phone KATLYN BURKETT Attending Unavailable [...] [place] M.D. RADIOLOGIST Transcribed by: MELISSA 01/27/2117:28 [id number] Electronically Reviewed and Signed By: CHARLENE CA [...] CA M.D. RADIOLOGIST Transcribed by: MELISSA 01/27/2117:26 [id number] Electronically Reviewed and Signed By: CHARLENE CA M.D. RADIOLOGIST 01/28/21 08:33 Copy for: SABRINA Garcia MD via fax Social History Type Status Start Date End Date Code Code Syst em Smoking History Current every day smoker 848938564 SNOMED CT Smoking History Current every day smoker [address] Sex Male Medications Medication Start Date End Date Route Frequency Dose Code Code System Medication Instructions Home Meds SEROquel 100MG Oral Tablet 02/07/2017 Unknown ORAL BEDTIME 100 MILLIGRAMS 839325 RxNorm TAKE 100 MILLIGRAMS ORAL BEDTIME lamoTRIgine 100MG Oral Tablet 02/07/2017 3 ORAL TWICE A DAY 100 MILLIGRAMS 407493 RxNorm TAKE 100 MILLIGRAMS ORAL TWICE A DAY Mapap 325MG Oral Tablet 02/07/2017 3 BY MOUTH NEEDED EVERY 4 HOURS 650 MILLIGRAMS 227201 RxNorm TAKE 650 MILLIGRAMS BY MOUTH NEEDED EVERY 4 HOURS Thera-M Enhanced 90MG-0.03MG-0 .15MG-4 Oral Tablet 09/25/2017 Unknown BY MOUTH DAILY WITH FOOD 1 TABLET 323155 RxNorm TAKE 1 TABLET BY MOUTH DAILY WITH FOOD EC Naproxen 500MG Oral Tablet, Enteric Coated 04/25/2021 3 ORAL TWICE A DAY 1 TABLET 996458 RxNorm TAKE 1 TABLET ORAL TWICE A [...] Date Status Code Code System PNEUMONIA active 191083115 SNOMED-CT COPD active 36777750 SNOMED-CT LYMPHOMA active 925177025 SNOMED-CT DIAZ'S CYST OF KNEE active 934798436 SNOMED-CT RIGHT TESTICULAR PAIN active 99248855 050262401 SNOMED-CT ALCOHOL WITHDRAWAL 09/08/2020 resolved 059348752 SNOMED-CT Allergies and Adverse Reactions Allergy Substance Reaction Severity Start Date Concern Status Co de Code System MIRTAZAPINE Active 89722 RxNorm WELLBUTRIN Seizure (SNOMED-CT: 50347896) Severe Active 10444 RxNorm Plan of Treatment Pre-Op Testing 10/07/2020 [...]
--- OUTSIDE RECORDS SUMMARY | 2024-02-03 22:29 | XMS_ITS | Encounter Summary ---
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 [place] [address] [place] [address] Discharge Disposition: Home or Self Care Social [...] 02/02/2023 documented in this encounter Care Teams Director Data Relationship Specialty Start Date End Date Lian Parnell FNP [address] [place] [address] PCP - General Family Medicine - Primary Care 09/16/21 CHARLENE URIOSTEGUI Pulmonary Disease 01/29/21 documented as of this encounter
--- OUTSIDE RECORDS SUMMARY | 2024-02-03 22:29 | XMS_ITS | Encounter Summary ---
Author Organization [facility] Address [address] [place] [address] Care Team Providers Care Stopboard Assembler Name Role Phone Lian Parnell MANUAL TESTER Primary Care Provider [phone] Reason for Visit * Reason Onset Date Comments Appointment Related 11/27/2022 Encounter Details Date Type Department Care Team (Late st Contact Info) Description 11/27/2022 Telephone [facility] Adult Hematology & Oncology [address] [place] [phone] Jaxon Stephens MD [address] [place] [address] [address] [place] [phone] Appointment Related Social History Tobacco Use Types [...] Macdonald - 11/27/2022 [address] [facility] office asked that we see pt in the [place] office for PET scan follow up. Appt scheduled with Dr Stephens for 12/15/22. Called pt and left a detailed message of the appt date and timeand stated the appt is at the [place] office and not the [facility] office. Pt Identified himself on hisvoice mail. documented in this encounter Plan of Treatment Not on file documented as of this encounter Visit Diagnoses Not on filedocumented in this encounter Care Teams Stopboard Assembler Relationship Specialty Start Date End Date Lian Parnell FNP [address] [place] [phone] PCP - General Family Medicine - Primary Care 09/16/21 CHARLENE URIOSTEGUI Pulmonary Disease 01/29/21 documented as of this encounter
--- OUTSIDE RECORDS SUMMARY | 2024-02-03 22:29 | XMS_ITS | Encounter Summary ---
Author Organization [facility] Address [address] [place] [address] Care Team Providers Care Sales And Events Coordinator Name Role Phone Lian Parnell STYLIST ASSISTANT Primary Care Provider [phone] Encounter Details Date Type Department Care Team (Late st Contact Info) Description 09/08/2023 Results Only [facility] Radiation Oncology - [facility] [address] [place] [address] Unknown, Provider, Social History Tobacco Use Types [...] on filedocumented in this encounter Care Teams Sales And Events Coordinator Relationship Specialty Start Date End Date Lian Parnell FNP [address] [place] [phone] PCP - General Family Medicine - Primary Care 09/16/21 CHARLENE URIOSTEGUI Pulmonary Disease 01/29/21 documented as of this encounter
--- OUTSIDE RECORDS SUMMARY | 2024-02-03 22:29 | XMS_ITS ---
Author Organization Unknown Address [address] [place], [place] [id number] Phone Care Team Providers Care Cruise Consultant Name Role Phone BROOK REARDON MD Attending Unavailable SABRINA Garcia MD Primary Unavailable Social History Type Status Start Date End Date Code Code Syst em Smoking History Current every day smoker 902862529 SNOMED CT Smoking History Current every day smoker [address] Sex Male Medications Medication Start Date End Date Route Frequency Dose Code Code System Medication Instructions Home Meds SEROquel 100MG Oral Tablet 02/07/2017 Unknown ORAL BEDTIME 100 MILLIGRAMS 646057 RxNorm TAKE 100 MILLIGRAMS ORAL BEDTIME lamoTRIgine 100MG Oral Tablet 02/07/2017 3 ORAL TWICE A DAY 100 MILLIGRAMS 204121 RxNorm TAKE 100 MILLIGRAMS ORAL TWICE A DAY Mapap 325MG Oral Tablet 02/07/2017 3 BY MOUTH NEEDED EVERY 4 HOURS 650 MILLIGRAMS 770157 RxNorm TAKE 650 MILLIGRAMS BY MOUTH NEEDED EVERY 4 HOURS Thera-M Enhanced 90MG-0.03MG-0 .15MG-4 Oral Tablet 09/25/2017 Unknown BY MOUTH DAILY WITH FOOD 1 TABLET 105308 RxNorm TAKE 1 TABLET BY MOUTH DAILY WITH FOOD EC Naproxen 500MG Oral Tablet, Enteric Coated 04/25/2021 3 ORAL TWICE A DAY 1 TABLET 093167 RxNorm TAKE 1 TABLET ORAL TWICE A [...] Pump, Central Or Peripheral Insertion 01/30/2021 completed 51905 CPT Problems Problem Start Date Resolved Date Status Code Code System PNEUMONIA active 894966440 SNOMED-CT COPD active 75136344 SNOMED-CT LYMPHOMA active 363333601 SNOMED-CT DIAZ'S CYST OF KNEE active 154220609 SNOMED-CT RIGHT TESTICULAR PAIN active 76261204 489764081 SNOMED-CT ALCOHOL WITHDRAWAL 09/08/2020 resolved 015150678 SNOMED-CT Allergies and Adverse Reactions Allergy Substance Reaction Severity Start Date Concern Status Co de Code System MIRTAZAPINE Active 96607 RxNorm WELLBUTRIN Seizure (SNOMED-CT: 76631625) Severe Active 80366 RxNorm Plan of Treatment Pre-Op Testing 10/07/2020 [...]
--- OUTSIDE RECORDS SUMMARY | 2024-02-03 22:29 | XMS_ITS | Encounter Summary ---
Author Organization [facility] Address [address] [place] [address] Care Team Providers Care Director Of Dementia Operations Name Role Phone Lian Parnell RATE CLERK PASSENGER Primary Care Provider [phone] Reason for Visit * Reason Onset Date Comments Appointment Related 12/11/2022 Encounter Details Date Type Department Care Team (Late st Contact Info) Description 12/11/2022 Telephone [facility] Adult Hematology & Oncology [address] [place] [phone] Jaxon Stephens MD [address] [place] [address] [address] [place] [phone] Appointment Related Social History Tobacco Use Types [...] in this encounter Care Teams Director Of Dementia Operations Relationship Specialty Start Date End Date Lian Parnell FNP [address] [place] [phone] PCP - General Family Medicine - Primary Care 09/16/21 CHARLENE URIOSTEGUI Pulmonary Disease 01/29/21 documented as of this encounter
--- OUTSIDE RECORDS SUMMARY | 2024-02-03 22:30 | XMS_ITS | Encounter Summary ---
Author Organization [facility] Address [address] [place] [address] Care Team Providers Care Photocomposition Keyboard Operator Name Role Phone Lynn Solis ASSOCIATE ORACLE RETAIL Primary Care Provider [phone] Lian Parnell DOCUMENT REVIEWER Primary Care Provider [phone] Encounter Details Date Type Department Care Team (Late st Contact Info) Description 09/02/2021 Lab Requisition [facility] Pathology & Laboratory Medicine - [address] [address] Outr Resulting Lab, Provider Social History Tobacco [...] Ab, Total Negative Negative 09/03/2021 11:22 EDT [facility] Blood VENOUS BLOOD / Unknown 09/02/2021 15:40 EDT 09/02/2021 21:42 EDT Provider Outr Resulting Lab CHEMISTRY & BLOOD GAS ORDERABLES [facility] [address] [place] [address] documented in this encounter Visit Diagnoses Not on filedocumented in this encounter Care Teams Photocomposition Keyboard Operator Relationship Specialty Start Date End Date Lynn Solis NP [address] [place] [address] PCP - General 05/28/14 09/15/21 Lian Parnell FNP [address] [place] [phone] PCP - General Family Medicine - Primary Care 09/16/21 CHARLENE URIOSTEGUI Pulmonary Disease 01/29/21 documented as of this encounter
--- OUTSIDE RECORDS SUMMARY | 2024-02-03 22:30 | XMS_ITS | Encounter Summary ---
Author Organization [facility] Address [address] [place] [address] Care Team Providers Care Trade Clerk Name Role Phone Lynn Solis PROCESS HELPER Primary Care Provider [phone] Lian Parnell FLOOR SCRUBBER Primary Care Provider [phone] Encounter Details Date Type Department Care Team (Late st Contact Info) Description 09/02/2021 Lab Requisition [facility] Pathology & Laboratory Medicine - [address] [address] Outr Resulting Lab, Provider Social History Tobacco [...] 15 - 73 U/L 09/02/2021 22:06 EDT [facility] Blood VENOUS BLOOD / Unknown 09/02/2021 15:40 EDT 09/02/2021 21:42 EDT Provider Outr Resulting Lab CHEMISTRY & BLOOD GAS ORDERABLES [facility] [address] [place] [address] documented in this encounter Visit Diagnoses Not on filedocumented in this encounter Care Teams Trade Clerk Relationship Specialty Start Date End Date Lynn Solis, PROCESS HELPER [address] [place] [address] PCP - General 05/28/14 09/15/21 Lian Parnell FNP [address] [place] [phone] PCP - General Family Medicine - Primary Care 09/16/21 CHARLENE URIOSTEGUI Pulmonary Disease 01/29/21 documented as of this encounter
--- OUTSIDE RECORDS SUMMARY | 2024-02-03 22:30 | XMS_ITS | Encounter Summary ---
Author Organization [facility] Address [address] [place] [address] Care Team Providers Care Personal Counselor Name Role Phone Lian Parnell Primary Care Provider [phone] Encounter Details Date Type Department Care Team (Late st Contact Info) Description 09/16/2021 Orders Only [facility] CT Scan [address] [place] [address] Melinda Carrington Social History Tobacco Use Types [...] on filedocumented in this encounter Care Teams Personal Counselor Relationship Specialty Start Date End Date Lian Parnell FNP [address] [place] [address] PCP - General Family Medicine - Primary Care 09/16/21 CHARLENE URIOSTEGUI Pulmonary Disease 01/29/21 documented as of this encounter
--- OUTSIDE RECORDS SUMMARY | 2024-02-03 22:30 | XMS_ITS | Encounter Summary ---
Author Organization [facility] Address [address] [place] [address] Care Team Providers Care Traffic Signal Supervisor Maintenance Name Role Phone Lian Parnell CORROSION CONTROL FITTER Primary Care Provider [phone] Reason for Visit * Reason Comments Cancer F/U Encounter Details Date Type Department Care Team (Late st Contact Info) Description 11/02/2022 15:00 EDT Office Visit [facility] Cancer Treatment [place] [address] [place], [place] [address] Ed Brady MD [address] [facility] [address] [place] [address] 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 Recommendations: 1. [facility] CBC with differential, LDH, CMP [...] above results. History of Presenting Illness: Fran Justin, who goes by Darren, has Hodgkin's lymphoma of left axilla??s/p??1 cycle of chemotherapy delivered and 30 Gy radiation. ??Medical history includes anxiety, depression, COPD, history of alcohol abuse and seizures. ?? The records are reviewed from [facility], [facility] and Dr. Stephens. ?? Classic Hodgkin lymphoma, lymphocyte rich subtype. Stage IB ??? 12/20/17 CT [facility] in follow up left lung [...] ??? 06/22/2020 Dr. Blanca Naik performed at [facility] right carpal tunnel surgery. ??A few [...] the wound got infected was admitted to [facility] for IV antibiotics he left AMA [...] follow up CT. 3. Emphysema. 4. Additional qghedtpjjolmx-wy-for type micronodular opacities in the right upper [...] of the visit. Ed Brady MD Radiation Oncology-[facility] (p) [phone] / (f) [phone] documented in this encounter Plan of Treatment Not on file documented as of this encounter Results * TESTOSTERONE (11/02/2022 15:37 EDT) Testosterone 373.0 229.0 - 902.0 ng/dL 11/02/2022 17:26 EDT [facility] Blood VENOUS BLOOD / Unknown Venipuncture / Unknown 11/02/2022 15:37 EDT 11/02/2022 16:23 EDT Ed Brady MD CHEMISTRY & BLOOD GAS ORDERABLES [facility] [address] [place] [address] * COMPREHENSIVE METABOLIC PANEL (CMP) (11/02/2022 15:37 EDT) Sodium 138 136 - 145 mmol/L [facility] Potassium 4.4 3.5 - 5.0 [...] Brady MD CHEMISTRY & BLOOD GAS ORDERABLES [facility] [address] [place] [address] * LDH (11/02/2022 15:37 EDT) [facility] LDH 225 120 - 246 U/L 11/02/2022 17:47 [facility] Blood VENOUS BLOOD / Unknown Venipuncture / Unknown 11/02/2022 15:37 EDT 11/02/2022 16:23 EDT Ed Brady MD CHEMISTRY & BLOOD GAS ORDERABLES Performing Organization Address City/[facility]/ZIP Co de Phone Number [facility] [address] [place] [address] * (ABNORMAL) COMPLETE BLOOD COUNT AND DIFFERENTIAL (11/02/2022 15:37 EDT) [facility] WBC 12.76(H) 4.00 - 10.40 K/cmm 11/02/2022 [...] EDT Ed Brady MD PACKAGES & DNA NH OBE ORDERABLES [facility] [address] [place] [address] documented in this encounter Visit Diagnoses Diagnosis [...] documented as of this encounter Care Teams Traffic Signal Supervisor Maintenance Relationship Specialty Start Date End Date Lian Parnell FNP [address] [place] [phone] PCP - General Family Medicine - Primary Care 09/16/21 CHARLENE URIOSTEGUI Pulmonary Disease 01/29/21 documented as of this encounter
--- OUTSIDE RECORDS SUMMARY | 2024-02-03 22:30 | XMS_ITS | Encounter Summary ---
Author Organization [facility] Address [address] [place] [address] Care Team Providers Care Guest Experience Specialist Name Role Phone Will Lynn Iris TIERNEY Primary Care Provider [phone] Reason for Visit * Reason Comments Follow-up Encounter Details Date Type Department Care Team (Late st Contact Info) Description 01/08/2021 14:30 EDT Office Visit [facility] Adult Hematology & Oncology [address] [place] [address] Jaxon Stephens MD [address] [place] [address], [facility] [address] [place] [address] Lymphocyte-rich Hodgkin lymphoma of lymph [...] scan scheduled for 07/16/2020 -09/11/2020 admitted to [facility]: Right middle lobe pneumonia [...] with empyema -09/11/2020 admitted via transfer to [facility] diagnosis of right middle lobe pneumonia and empyema. Pigtail catheter inserted TPA therapy initiated x4 cycles, additional pigtail was placed into more lateral collection. Pleural fluid grew strep milligray sensitive to penicillin treated with Augmentin for6 weeks. Pigtail catheter was removed prior to discharge -Needs follow-up CT chest mid November, referral back to Dr. Marko Jordan thoracic surgery at [facility]. 2: History of tobacco abuse. -12/29/2018 CT chest [facility]. No malignancy. Left axilla showing a 1.3 cm lymph node shortness axis. - 11/22/2019 2 pack/day for 46 years for total of 42 pack to pack year history. Followed by Dr Donta hernandez in [place]. -Scheduled for a yearly screening CT chest [...] consultation from the malignant hematology clinic at [facility]. Overall seems to continue to improve since [...] edema. Comments: Left wrist wrapped in an Rci bandage. Range of motion maintained. Did not [...] ??? Anxiety ??? Depression ??? Emphysema lung ([facility]) ??? Emphysema of lung (HCC-CMS) ??? ETOH abuse ??? GERD (gastroesophageal reflux disease) ??? 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 Seizures ([facility]) Allergies: Allergies Allergen Reactions ??? Bupropion [...] laterthe wound got infected was admitted to [facility] for IV antibiotics he left AMA before finishing a course. Due to delays in multiple infectious complications and the risk of immunosuppression from further chemotherapy and psychiatric decompensation due to chemotherapy/steroids recommended radiation to the left axilla. Had a complete response. July was admitted to [facility] later transferred to [facility] for pneumonia/empyema. RequiringPleurx catheter x2. Discharge August. [...] -Send PT images to Dr. Claudio Jordan, [facility] who is following the pneumonia/empyema we will ask him to correlate the left upper lung findings with CT scans done at [facility]. -Review radiation ports with Dr. Brady to see the correlate with the new finding in the left alone. -Copy of the PET scan will be sent to pulmonary department at [facility], has a follow-up CT scan there with his new javascript engineer. -If all stable follow-up in 3 months [...] weight. CC; Herman Coon ONP., Pulmonary at [facility]. Code [id number]: This note was transcribed using [employer] voice recognition software please excuse any mistranslations. Jaxon Stephens MD [facility] documented in this encounter Plan [...] documented as of this encounter Care Teams Guest Experience Specialist Relationship Specialty Start Date End Date Lynn Solis, NIALL [address] [place] [address] PCP - General 05/28/14 09/15/21 CHARLENE URIOSTEGUI Pulmonary Disease 01/29/21 documented as of this encounter
--- OUTSIDE RECORDS SUMMARY | 2024-02-03 22:30 | XMS_ITS | Encounter Summary ---
Author Organization [facility] Address [address] [place] [address] Care Team Providers Care Chronic Manager Name Role Phone Lynn Solis ROTARY FURNACE OPERATOR Primary Care Provider [phone] Lian Parnell SHEEPSKIN PICKLER Primary Care Provider [phone] Encounter Details Date Type Department Care Team (Late st Contact Info) Description 09/02/2021 Lab Requisition [facility] Pathology & Laboratory Medicine - [address] [address] Outr Resulting Lab, Provider Social History Tobacco [...] 211 - 911 pg/mL 09/02/2021 22:46 EDT [facility] Blood VENOUS BLOOD / Unknown 09/02/2021 15:40 EDT 09/02/2021 21:42 EDT Provider Outr Resulting Lab CHEMISTRY & BLOOD GAS ORDERABLES [facility] [address] [place] [address] documented in this encounter Visit Diagnoses Not on filedocumented in this encounter Care Teams Chronic Manager Relationship Specialty Start Date End Date Lynn Solis NP [address] [place] [address] PCP - General 05/28/14 09/15/21 Lian Parnell FNP [address] [place] [phone] PCP - General Family Medicine - Primary Care 09/16/21 CHARLENE URIOSTEGUI Pulmonary Disease 01/29/21 documented as of this encounter
--- OUTSIDE RECORDS SUMMARY | 2024-02-03 22:30 | XMS_ITS | Encounter Summary ---
Author Organization [facility] Address [address] [place] [address] Care Team Providers Care Quarter Trimmer Name Role Phone Will Lynn Iris PACK TRAIN DRIVER Primary Care Provider [phone] Reason for Visit * Reason Onset Date Comments Other 10/25/2020 Encounter Details Date Type Department Care Team (Late st Contact Info) Description 10/25/2020 Telephone [facility] [place] Oncology [address] [place] [phone] Melita Epstein RN Other Social History Tobacco [...] - 10/25/2020 1616 EDT Alvaro, Cate B, CHEMIST FOOD to You Just now Hi Em, APAP [...] with plan. Also advised him to call nuclear control operator provider if he ran into issues over the weekend. He acknowledged understanding. * Telephone Encounter - Melita Epstein RN - 10/25/2020 3732 EDT Patient states, I am in alot [...] pill left from when I was at [facility] and his fiance gave him it and it helped a little,but not a lot (patient can't remember what it was a little wite pill). States he keeps losing weight and doesn't know why currently 120# Patient denies any bleeding, bruising or fevers. CALL: [phone] OR [phone] Please advise SEND back to Rachel Romero Or Melita Sutton (I will be leaving at 2:30) documented in this encounter Plan of Treatment Not on file documented as of this encounter Visit Diagnoses Not on filedocumented in this encounter Care Teams Quarter Trimmer Relationship Specialty Start Date End Date Lynn Solis NP [address] [place] [address] PCP - General 05/28/14 09/15/21 documented as of this encounter
--- OUTSIDE RECORDS SUMMARY | 2024-02-03 22:30 | XMS_ITS | Encounter Summary ---
Author Organization [facility] Address [address] [place] [address] Care Team Providers Care Emergency Medicine Medical Director Name Role Phone Will Lynn B BLACK TOP MACHINE OPERATOR Primary Care Provider [phone] Reason for Visit * Reason Onset Date Comments Appointment Related 09/18/2020 Encounter Details Date Type Department Care Team (Late st Contact Info) Description 09/18/2020 Telephone [facility] Adult Hematology & Oncology [address] [place] [phone] Jaxon Stephens MD [address] [place] [address] [address] [place] [phone] Appointment Related Social History Tobacco Use Types [...] 0850 EDT Emailed Rula and Santa at [facility] * Telephone Encounter - Jaxon Stephens MD - 09/18/2020 1844 EDT Next available appointment at [facility] could be in 3 weeks let him recover. Thank you * Telephone Encounter - Holli Martínez - 09/18/2020 1404 EDT PT just got out of [facility] after 10 days he was there for severe case of pneumonia, so he cancelled his appt., for today. Please call to advise, and when would you like a F/U thank you documented in this encounter Plan of Treatment Not on file documented as of this encounter Visit Diagnoses Not on filedocumented in this encounter Care Teams Emergency Medicine Medical Director Relationship Specialty Start Date End Date Lynn Solis NP [address] [place] [address] PCP - General 05/28/14 09/15/21 documented as of this encounter
--- OUTSIDE RECORDS SUMMARY | 2024-02-03 22:30 | XMS_ITS | Encounter Summary ---
Author Organization [facility] Address [address] [place] [address] Care Team Providers Care Ferry Terminal Supervisor Name Role Phone Lynn Solis TODDLER GUIDE Primary Care Provider [phone] Lian Parnell BATON TEACHER Primary Care Provider [phone] Encounter Details Date Type Department Care Team (Late st Contact Info) Description 09/02/2021 Lab Requisition [facility] Pathology & Laboratory Medicine - [address] [address] Outr Resulting Lab, Provider Social History Tobacco [...] 4th Generation Negative Negative 09/03/2021 12:27 EDT [facility] Comment:If acute HIV-1 infec tion is suspected in a high risk patient, submit plasma specimen for HIV-1 RNA quantitation test. Blood VENOUS BLOOD / Unknown 09/02/2021 15:40 EDT 09/02/2021 21:42 EDT Narrative [facility] - 09/03/2021 12:27 EDT Fourth Generation assay performed on the Siemens Centaur XPT. Provider Outr Resulting Lab IMMUNOLOGY A ND SEROLOGY ORDERABLES Performing Organization Address City/State/[facility] Co de Phone Number [facility] [address] [place] [address] documented in this encounter Visit Diagnoses Not on filedocumented in this encounter Care Teams Ferry Terminal Supervisor Relationship Specialty Start Date End Date Lynn Solis NP [address] [place] [address] PCP - General 05/28/14 09/15/21 Lian Parnell FNP [address] [place] [address] PCP - General Family Medicine - Primary Care 09/16/21 CHARLENE URIOSTEGUI Pulmonary Disease 01/29/21 documented as of this encounter
--- OUTSIDE RECORDS SUMMARY | 2024-02-03 22:30 | XMS_ITS | Encounter Summary ---
Author Organization [facility] Address [address] [place] [address] Care Team Providers Care Cardiopulmonary Technician Name Role Phone Lynn Solis TOW MOTOR OPERATOR Primary Care Provider [phone] Lian Parnell MEAT HANGER Primary Care Provider [phone] Encounter Details Date Type Department Care Team (Late st Contact Info) Description 03/25/2021 Lab Requisition [facility] Pathology & [place] [address] Outr Resulting Lab, Provider Social History Tobacco [...] 4th Generation Negative Negative 03/26/2021 14:14 EDT [facility] Comment: If acute HIV-1 infection is suspected in a high risk ??patient, submit plasma specimen for HIV-1 RNA quantitation test. Fourth Generation assay performed on the Siemens JetPayaur. Blood VENOUS BLOOD / Unknown 03/24/2021 18:07 EDT 03/25/2021 16:16 EDT Provider Outr Resulting Lab IMMUNOLOGY A ND SEROLOGY ORDERABLES Performing Organization Address City/State/[facility] Co de Phone Number [facility] [address] [place] [address] documented in this encounter Visit Diagnoses Not on filedocumented in this encounter Care Teams Cardiopulmonary Technician Relationship Specialty Start Date End Date Lynn Solis NP [address] [place] [address] PCP - General 05/28/14 09/15/21 Lian Parnell FNP [address] [place] [address] PCP - General Family Medicine - Primary Care 09/16/21 CHARLENE URIOSTEGUI Pulmonary Disease 01/29/21 documented as of this encounter
--- OUTSIDE RECORDS SUMMARY | 2024-02-03 22:30 | XMS_ITS | Encounter Summary ---
Author Organization [facility] Address [address] [place] [address] Care Team Providers Care Telephone Diaphragm Assembler Name Role Phone Lynn Solis TANK HOUSE SUPERVISOR Primary Care Provider [phone] Reason for Visit * Reason Onset Date Comments Update 10/04/2020 Encounter Details Date Type Department Care Team (Late st Contact Info) Description 10/04/2020 Telephone [facility] Adult Hematology & Oncology [address] [place] [phone] Vira Stephens MD [address] [place] [address] [address] [place] [phone] Update Social History Tobacco Use Types Packs/Day [...] encounter Miscellaneous Notes * Telephone Encounter - [place], Meesha, RN - 10/04/2020 6844 EDT Images from the original note were not included. Katherine nurse from [facility] Thoracic surgery called with an update on [...] CT scanin November. ??This been done at [facility] we will send them a copy. Thank you Message text 10/08/20 15:31 noted documented in this encounter Plan of Treatment Not on file documented as of this encounter Visit Diagnoses Not on filedocumented in this encounter Care Teams Telephone Diaphragm Assembler Relationship Specialty Start Date End Date Lynn Solis NP [address] [place] [address] PCP - General 05/28/14 09/15/21 documented as of this encounter
--- OUTSIDE RECORDS SUMMARY | 2024-02-03 22:30 | XMS_ITS | Encounter Summary ---
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) Procedures CT ABDOMEN PELVIS W CONTRAST CT ABDOMEN W CONTRAST Ed Brady MD [address] [place] [phone] [facility] Referral ID Status Reason Start Date Expiration Date Visits Requested Visits Authorized [id number] Authorization Not Required 09/16/2021 1 1 * Radiology Services (Routine/Next Available) - Authorization Not Required Specialty Diagnoses / Procedures Referred By Mavis rhoeds Referred To Contact Diagnoses 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) Procedures CT CHEST W CONTRAST Ed Brady MD [address] [place] [phone] [facility] Referral ID Status Reason Start Date Expiration Date Visits Requested Visits Authorized [id number] Authorization Not Required 09/16/2021 1 1 Reason for Visit * Radiology Services (Routine/Next Available) - Authorization Not Required Specialty Diagnoses / Procedures Referred By Contac t Referred To Contact Diagnoses 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) Procedures CT CHEST W CONTRAST Ed Brady MD [address] [place] [address] [address] [place] [address] [facility] Referral ID Status Reason Start Date Expiration Date Visits Requested Visits Authorized [id number] Authorization Not Required 09/16/2021 1 1 Encounter Details Date Type Department Care Team (Latest Contact Info) Description 10/02/2021 14:27 EDT - 10/02/2021 23:59 EDT Hospital Encounter [facility] CT Scan [address] [place] [address] Lymphocyte-rich Hodgkin lymphoma of lymph nodes of [...] 10/02/2021 documented in this encounter Care Teams Weight Engineer Relationship Specialty Start Date End Date Lian Parnell, CUTTING AND PRINTING MACHINE OPERATOR [address] [place] [phone] PCP - General Family Medicine - Primary Care 09/16/21 CHARLENE URIOSTEGUI Pulmonary Disease 01/29/21 documented as of this encounter
--- OUTSIDE RECORDS SUMMARY | 2024-02-03 22:30 | XMS_ITS | Encounter Summary ---
Author Organization [facility] Address [address] [place] [address] Care Team Providers Care Election Clerk Name Role Phone Will Lynn B SUMMER CHILD CAREGIVER Primary Care Provider [phone] Reason for Visit * Reason Onset Date Comments Appointment Related 10/01/2020 Encounter Details Date Type Department Care Team (Late st Contact Info) Description 10/01/2020 Telephone [facility] Adult Hematology & Oncology [address] [place] [phone] Jaxon Stephens MD [address] [place] [address] [address] [place] [phone] Appointment Related Social History Tobacco Use Types [...] Epstein RN - 10/03/2020 1446 EDT Called [facility] spoke with Santa, confirmed message was received and scheduled. * Telephone Encounter - Jaxon Stephens MD - 10/01/2020 1711 EDT Recent diagnosis of right lung pneumonia with abscess. Follow-up with thoracic surgeon 09/26/2020 seems to be improving. He needs a follow-up CT chest with contrast last week in November. Left message on SantaCirrascale recording machine to schedule. Melita please call confirm she got the message thank you documented in this encounter Plan of Treatment Not on file documented as of this encounter Visit Diagnoses Not on filedocumented in this encounter Care Teams Election Clerk Relationship Specialty Start Date End Date Lynn Solis NP [address] [place] [address] PCP - General 05/28/14 09/15/21 documented as of this encounter
--- OUTSIDE RECORDS SUMMARY | 2024-02-03 22:30 | XMS_ITS | Encounter Summary ---
Author Organization [facility] Address [address] [place] [address] Care Team Providers Care Ware Tester Name Role Phone Lynn Solis METAL CONTAINER MAKER Primary Care Provider [phone] Lian Parnell CHEMIST PHARMACEUTICAL Primary Care Provider [phone] Encounter Details Date Type Department Care Team (Late st Contact Info) Description 09/02/2021 Lab Requisition [facility] Pathology & Laboratory Medicine - [address] [address] Outr Resulting Lab, Provider Social History Tobacco [...] Surface Ag Negative Negative 09/03/2021 11:02 EDT [facility] Blood VENOUS BLOOD / Unknown 09/02/2021 15:40 EDT 09/02/2021 21:42 EDT Provider Outr Resulting Lab CHEMISTRY & BLOOD GAS ORDERABLES [facility] [address] [place] [address] documented in this encounter Visit Diagnoses Not on filedocumented in this encounter Care Teams Ware Tester Relationship Specialty Start Date End Date Lynn Solis METAL CONTAINER MAKER [address] [place] [address] PCP - General 05/28/14 09/15/21 Lian Parnell FNP [address] [place] [phone] PCP - General Family Medicine - Primary Care 09/16/21 CHARLENE URIOSTEGUI Pulmonary Disease 01/29/21 documented as of this encounter
--- OUTSIDE RECORDS SUMMARY | 2024-02-03 22:30 | XMS_ITS | Encounter Summary ---
Author Organization [facility] Address [address] [place] [address] Care Team Providers Care Tallow Pumper Name Role Phone Lynn Solis HYDROPRESS OPERATOR Primary Care Provider [phone] Lian Parnell TOOL MARKER Primary Care Provider [phone] Encounter Details Date Type Department Care Team (Late st Contact Info) Description 09/02/2021 Lab Requisition [facility] Pathology & Laboratory Medicine - [address] [address] Outr Resulting Lab, Provider Social History Tobacco [...] 10:41 EDT [facility] Comment: Reference Range for Hep B Surface Ab, Quant: Positive: >= 10.0 mIU/mL Negative: ??< 10.0 mIU/mL Patient is presumed to not be immune to infection with Hepatitis B Virus. Hep B Surface Ab, Qualitative Negative See Note 09/03/2021 10:41 EDT [facility] Comment: Reference Range for Hep B Surface Ab, Qual: Unvaccinated: ??Negative Vaccinated: ??Positive Blood VENOUS BLOOD / Unknown 09/02/2021 15:40 EDT 09/02/2021 21:42 EDT Provider Outr Resulting Lab CHEMISTRY & BLOOD GAS ORDERABLES [facility] [address] [place] [address] documented in this encounter Visit Diagnoses Not on filedocumented in this encounter Care Teams Tallow Pumper Relationship Specialty Start Date End Date Lynn Solis NP [address] [place] [address] PCP - General 05/28/14 09/15/21 Lian Parnell FNP 4 [place] [address] PCP - General Family Medicine - Primary Care 09/16/21 CHARLENE RUIOSTEGUI Pulmonary Disease 01/29/21 documented as of this encounter
--- OUTSIDE RECORDS SUMMARY | 2024-02-03 22:30 | XMS_ITS | Encounter Summary ---
Author Organization [facility] Address [address] [place] [address] Care Team Providers Care Carton Waxing Machine Operator Name Role Phone Lynn Solis REPAIRER MAINTENANCE BUILDING Primary Care Provider [phone] Lian Parnell ORGAN FIXER Primary Care Provider [phone] Encounter Details Date Type Department Care Team (Late st Contact Info) Description 01/01/2021 Results Only Imaging [facility] Radiology Results [address] [place], [place] [address] Lynn Solis, REPAIRER MAINTENANCE BUILDING [address] [place], [place] [phone] Social History Tobacco Use Types Packs/Day Years [...] CC: ? Transcribed Date/Time: 01/01/2021 (1512) ? Cafeteria Aide: ? Printed Date/Time: 01/01/2021 (1512) ? PAGE [...] Derek Shukla MD CC: Transcribed Date/Time: 01/01/2021 (807) Cafeteria Aide: Printed Date/Time: 01/01/2021 (151) PAGE 1 Signed Report Lynn Solis NP IMG NM ORDERABLES documented in this encounter Visit Diagnoses Not on filedocumented in this encounter Care Teams Carton Waxing Machine Operator Relationship Specialty Start Date End Date Lynn Solis NP [address] [place] [address] PCP - General 05/28/14 09/15/21 Lian Parnell FNP [address] [place] [address] PCP - General Family Medicine - Primary Care 09/16/21 CHARLENE URIOSTEGUI Pulmonary Disease 01/29/21 documented as of this encounter
--- OUTSIDE RECORDS SUMMARY | 2024-02-03 22:30 | XMS_ITS | Encounter Summary ---
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) Procedures CT ABDOMEN PELVIS W CONTRAST CT ABDOMEN W CONTRAST Ed Brady MD [address] [place] [phone] [facility] Referral ID Status Reason Start Date Expiration Date Visits Requested Visits Authorized [id number] Authorization Not Required 09/16/2021 1 1 * Radiology Services (Routine/Next Available) - Authorization Not Required Specialty Diagnoses / Procedures Referred By Mavis rhodes Referred To Contact Diagnoses 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, [facility] [address] [place] [address] Lymphocyte-rich Hodgkin lymphoma of lymph [...] and seizures. The records are reviewed from [facility], Amair[place] and Dr. Stephens. Classic Hodgkin lymphoma, lymphocyte rich subtype. Stage IB ??? 12/20/17 CT handy General the patient is a [facility] in follow up left lung noduleand [...] ??? 06/22/2020 Dr. Blanca Naik performed at [place] [...] of the visit. Ed Brady MD Radiation Oncology-[facility] (p) [phone] / (f) [phone] documented in this encounter Plan of Treatment [...] 0.66 - 1.25 mg/dL 09/16/2021 17:34 EDT [facility] eGFR 106 >60 mL/min/1.73 m2 09/16/2021 17:34 EDT [facility] Blood VENOUS BLOOD / Unknown Venipuncture / Unknown 09/16/2021 15:58 EDT 09/16/2021 17:07 EDT Ed Brady MD CHEMISTRY & BLOOD GAS ORDERABLES [facility] [address] [place] [address] documented in this encounter Visit Diagnoses Diagnosis [...] daily. added in this encounter Care Teams Hat Copyist Relationship Specialty Start Date End Date Lian Parnell FNP [address] [place] [address] PCP - General Family Medicine - Primary Care 09/16/21 CHARLENE URIOSTEGUI Pulmonary Disease 01/29/21 documented as of this encounter
--- OUTSIDE RECORDS SUMMARY | 2024-02-03 22:30 | XMS_ITS | Encounter Summary ---
Author Organization [facility] Address [address] [place] [address] Care Team Providers Care Sheet Metal Shop Foreman Name Role Phone Lian Parnell SHEET ROCKER Primary Care Provider [phone] Encounter Details Date Type Department Care Team (Late st Contact Info) Description 09/16/2021 15:50 EDT Phlebotomy Only [facility] - Outpatient Phlebotomy Drawing [address] [place] [address] [place], [facility] [place] Lymphocyte-rich Hodgkin lymphoma of lymph [...] 0.66 - 1.25 mg/dL 09/16/2021 17:34 EDT [facility] eGFR 106 >60 mL/min/1.73 m2 09/16/2021 17:34 EDT [facility] Blood VENOUS BLOOD / Unknown Venipuncture / Unknown 09/16/2021 15:58 EDT 09/16/2021 17:07 EDT Ed Brady MD CHEMISTRY & BLOOD GAS ORDERABLES Performing Organization Address City/State/[facility] Co de Phone Number [facility] [address] [place] [address] documented in this encounter Visit Diagnoses Diagnosis 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
--- OUTSIDE RECORDS SUMMARY | 2024-02-03 22:30 | XMS_ITS | Encounter Summary ---
Author Organization [facility] Address [address] [place] [address] Care Team Providers Care Supervisor Malt House Name Role Phone Lian Parnell HYDRAULIC CHAIR ASSEMBLER Primary Care Provider [phone] Encounter Details Date Type Department Care Team (Late st Contact Info) Description 11/02/2022 15:30 EDT Phlebotomy Only [facility] - Outpatient Phlebotomy Drawing [address] [place] [address] [place], [facility] [place] Lymphocyte-rich Hodgkin lymphoma of lymph [...] Results * TESTOSTERONE (11/02/2022 15:37 EDT) Pathologist [facility] Testosterone 373.0 229.0 - 902.0 ng/dL 11/02/2022 17:26 EDT [facility] Blood VENOUS BLOOD / Unknown Venipuncture / Unknown 11/02/2022 15:37 EDT 11/02/2022 16:23 EDT Ed Brady MD CHEMISTRY & BLOOD GAS ORDERABLES Performing Organization Address City/State/[facility] Co de Phone Number [facility] [address] [place] [phone] * COMPREHENSIVE METABOLIC PANEL (CMP) (11/02/2022 15:37 EDT) Pathologist [facility] Sodium 138 136 - 145 mmol/L 11/02/2022 16:53 EDT [facility] Potassium 4.4 3.5 - 5.0 mmol/L 11/02[facility]2022 [facility] Chloride 102 96 - 110 mmol/L 11/02/2022 16:53 [facility] CO2 Total 25 22 - 32 mmol/L 11/02/2022 16[facility]53 [facility] Glucose 81 70 - 100 mg/dl 11/02/2022 16:53 EDT [facility] BUN 11 10 - 26 mg/dL 11/02/2022 16:53 [facility] Creatinine 0.81 0.66 - 1.25 mg/dL 11/02/2022 16:53 [facility] eGFR 102 >60 mL/min/1.7 3m2 11/02/2022 16:53 [facility] Total Protein 7.2 6.3 - 8.2 g/dL 11/02/2022 16:53 [facility] Albumin 4.3 3.4 - 4.9 g/dL 11/02/2022 16:53 [facility] Alkaline Phosphatase 65 38 - 126 U/L 11/02/2022 16:53 [facility] AST 31 15 - 46 U/L 11/02/2022 16:53 [facility] ALT 25 <50 U/L 11/02/2022 16:53 [facility] Bilirubin, Total 0.5 <1.4 mg/dL 11/03/19 16:53 [facility] Calcium 9.3 8.5 - 10.5 mg/dL 11/02/2022 16:53 [facility] Albumin/Globulin Ratio 1.5 1.0 - 2.5 11/02/2022 16:53 [facility] Anion Gap 11 5 - 14 mmol/L 11/02/2022 16:53 [facility] Blood VENOUS BLOOD / Unknown Venipuncture / Unknown 11/02/2022 15:37 EDT 11/02/2022 16:23 EDT Ed Brady MD CHEMISTRY & BLOOD GAS ORDERABLES [facility] [address] [place] [address] * LDH (11/02/2022 15:37 EDT) LDH 225 120 - 246 U/L 11/02/2022 17:47 [facility] Blood VENOUS BLOOD / Unknown Venipuncture / Unknown 11/02/2022 15:37 EDT 11/02/2022 16:23 EDT Ed Brady MD CHEMISTRY & BLOOD GAS ORDERABLES [facility] [address] [place] [address] * (ABNORMAL) COMPLETE BLOOD COUNT AND DIFFERENTIAL (11/02/2022 15:37 EDT) WBC 12.76(H) 4.00 - 10.40 K/cmm 11/02/2022 16:34 [facility] RBC 4.64 4.36 - 5.78 M/cmm 11/02/2022 16:34 [facility] Hemoglobin 15.2 13.8 - 17.3 g/dL 11/02/2022 16:34 [facility] HCT 45.7 39.5 - 50.2 % 11/02/2022 16:34 [facility] MCV 99(H) 81 - 95 fL 11/02/2022 16:34 [facility] MCH 32.8 27.6 - 33.0 pg 11/02/2022 16:34 [facility] MCHC 33.3 32.8 - 36.4 g/dL 11/02/2022 16:34 [facility] RDW-CV 13.7 <14.2 % 11/02/2022 16:34 [facility] RDW-SD 50.4(H) <46.0 fl 11/02/2022 16:34 [facility] PLT 397(H) 141 - 377 K/cmm 11/02/2022 16:34 [facility] MPV 9.0(L) 9.5 - 12.7 fL 11/02/2022 16:34 [facility] % Neutrophils 77.5 % 11/02/2022 16:34 [facility] % Lymphocytes 13.8 % 11/02/2022 16:34 [facility] % Monocytes 6.3 % 11/02/2022 16:34 [facility] % Eosinophils 1.3 % 11/02/2022 16:34 [facility] % Basophils 0.6 % 11/02/2022 16:34 [facility] % Immature Grans 0.5 % 11/03/19 16:34 [facility] Absolute Neutrophils 9.89(H) 2.20 - 8.85 K/cmm 11/02/2022 16:34 [facility] Absolute Lymphocytes 1.76 1.09 - 3.30 K/cmm 11/02/2022 16:34 [facility] Absolute Monocytes 0.80 0.10 - 0.80 K/cmm 11/02/2022 16:34 [facility] Absolute Eosinophils 0.17 0.03 - 0.61 K/cmm 11/02/2022 16:34 [facility] ABS Basophils 0.08 0.01 - 0.11 K/cmm 11/02/2022 16:34 [facility] Absolute Immature Grans 0.06 0.00 - 0.06 K/cmm 11/02/2022 16:34 [facility] Type of Differential: Auto 11/02/2022 16:34 [facility] Blood VENOUS BLOOD / Unknown Venipuncture / Unknown 11/02/2022 15:37 EDT 11/02/2022 16:22 EDT Ed Brady MD PACKAGES & DNA KS OBE ORDERABLES [facility] [address] [place] [address] documented in this encounter Visit Diagnoses Diagnosis 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
--- OUTSIDE RECORDS SUMMARY | 2024-02-03 22:30 | XMS_ITS | Encounter Summary ---
Author Organization [facility] Address [address] [place] [address] Care Team Providers Care Correctional Supervisor Lieutenant Name Role Phone Lynn Solis REFRIGERATION PERSON Primary Care Provider [phone] Lian Parnell HYDRAULIC TESTER Primary Care Provider [phone] Encounter Details Date Type Department Care Team (Late st Contact Info) Description 01/02/2021 Lab Requisition [facility] Pathology & [place] [address] Outr Resulting Lab, Provider Social History Tobacco [...] 0.0 - 3.5 ng/mL 01/02/2021 18:30 EDT [facility] Blood VENOUS BLOOD / Unknown 01/01/2021 15:33 EDT 01/02/2021 16:26 EDT Narrative [facility] - 01/02/2021 18:30 EDT NOTE: Serum PSA concentration should not be interpreted as absolute evidence for the presence or absence of malignant disease. Assayed on Cl[employer]aur XPT using chemiluminescent technology.??Values obtained by using different assay methods cannot be used interchangeably. Provider Outr Resulting Lab CHEMISTRY & BLOOD GAS ORDERABLES Performing Organization Address City/State/[facility] Co de Phone Number [facility] [address] [place] [address] documented in this encounter Visit Diagnoses Not on filedocumented in this encounter Care Teams Correctional Supervisor Lieutenant Relationship Specialty Start Date End Date Lynn Solis NP [address] [place] [address] PCP - General 05/28/14 09/15/21 Lian Parnell FNP [address] [place] [phone] PCP - General Family Medicine - Primary Care 09/16/21 CHARLENE URIOSTEGUI Pulmonary Disease 01/29/21 documented as of this encounter
--- OUTSIDE RECORDS SUMMARY | 2024-02-03 22:30 | XMS_ITS | Encounter Summary ---
Author Organization [facility] Address [address] [place] [address] Care Team Providers Care Bleach Chlorinator Name Role Phone Lian Parnell CANDY PULLER Primary Care Provider [phone] Encounter Details Date Type Department Care Team (Late st Contact Info) Description 04/27/2022 Documentation Visit [facility] - [facility] - [facility] Cancer [facility] [address] [place] [address] Taty Flores, RN Social History Tobacco Use [...] on filedocumented in this encounter Care Teams Bleach Chlorinator Relationship Specialty Start Date End Date Lian Parnell FNP [address] [place] [phone] PCP - General Family Medicine - Primary Care 09/16/21 CHARLENE URIOSTEGUI Pulmonary Disease 01/29/21 documented as of this encounter
--- OUTSIDE RECORDS SUMMARY | 2024-02-03 22:30 | XMS_ITS | Encounter Summary ---
Author Organization [facility] Address [address] [place] [address] Care Team Providers Care Machine Etcher Name Role Phone Lynn Solis FAMILY LAW SPECIALIST Primary Care Provider [phone] Lian Parnell OIL AND GAS SUPERINTENDENT Primary Care Provider [phone] Encounter Details Date Type Department Care Team (Late st Contact Info) Description 09/02/2021 Lab Requisition [facility] Pathology & Laboratory Medicine - [address] [address] Outr Resulting Lab, Provider Social History Tobacco [...] Antibody, IgM Negative Negative 09/03/2021 13:38 EDT [facility] Blood VENOUS BLOOD / Unknown 09/02/2021 15:40 EDT 09/02/2021 21:42 EDT Narrative [facility] - 09/03/2021 13:38 EDT The results of this assay can be falsely lowered due to the consumption of Biotin. Provider Outr Resulting Lab CHEMISTRY & BLOOD GAS ORDERABLES Performing Organization Address [facility] Co de Phone Number [facility] [address] [place] [address] * (ABNORMAL) HEPATITIS A TOTAL ANTIBODY W REFLEX (09/02/2021 15:40 EDT) Hepatitis A Antibody, Total Positive(A ) Negative 09/03/2021 12:27 EDT [facility] Blood VENOUS BLOOD / Unknown 09/02/2021 15:40 EDT 09/02/2021 21:42 EDT Narrative [facility] - 09/03/2021 12:27 EDT The result of this assay can be falsely elevated (Positive) due to the consumption of Biotin. Provider Outr Resulting Lab CHEMISTRY & BLOOD GAS ORDERABLES Performing Organization Address City/[facility]/ZIP Co de Phone Number [facility] [address] [place] [address] documented in this encounter Visit Diagnoses Not on filedocumented in this encounter Care Teams Machine Etcher Relationship Specialty Start Date End Date Lynn Solis NP [address] [place] [address] PCP - General 05/28/14 09/15/21 Lian Parnell, [facility] [address] [place] [phone] PCP - General Family Medicine - Primary Care 09/16/21 CHARLENE URIOSTEGUI Pulmonary Disease 01/29/21 documented as of this encounter
--- OUTSIDE RECORDS SUMMARY | 2024-02-03 22:30 | XMS_ITS | Encounter Summary ---
Author Organization [facility] Address [address] [place] [address] Care Team Providers Care Nurses Supervisor Name Role Phone Lynn Solis WINDOW FRAMER Primary Care Provider [phone] Lian Parnell FABRIC COATING SUPERVISOR Primary Care Provider [phone] Encounter Details Date Type Department Care Team (Late st Contact Info) Description 10/29/2020 Lab Requisition [facility] Pathology & [place] [address] Outr Resulting Lab, Provider Social History Tobacco [...] Lyme Ab Negative Negative 10/30/2020 11:37 EDT [facility] Comment:New 3rd generation a ssay in use 11/08/2019 Blood VENOUS BLOOD / Unknown 10/29/2020 14:25 EDT 10/29/2020 21:47 EDT Provider Outr Resulting Lab IMMUNOLOGY A ND SEROLOGY ORDERABLES [facility] [address] [place] [address] documented in this encounter Visit Diagnoses Not on filedocumented in this encounter Care Teams Nurses Supervisor Relationship Specialty Start Date End Date Lynn Solis, [place] [address] [place] [address] PCP - General 05/28/14 09/15/21 Lian Parnell FNP [address] [place] [phone] PCP - General Family Medicine - Primary Care 09/16/21 CHARLENE URIOSTEGUI Pulmonary Disease 01/29/21 documented as of this encounter
--- OUTSIDE RECORDS SUMMARY | 2024-02-03 22:30 | XMS_ITS | Encounter Summary ---
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 [id number] Narrative 02/02/2023 14:06 EDT INDICATION: h/o stage [...] IMPRESSION No abnormal increased metabolic activity identified. 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
--- OUTSIDE RECORDS SUMMARY | 2024-02-03 22:30 | XMS_ITS | Encounter Summary ---
Author Organization [facility] Address [address] [place] [address] Care Team Providers Care Rn Assessment Name Role Phone Lynn Solis NP Primary Care Provider [phone] Reason for Visit * Reason Comments Follow-up Encounter Details Date Type Department Care Team (Late st Contact Info) Description 10/09/2020 13:00 EDT Office Visit [facility] Hematology & Oncology [address] [place] [address] [phone] Jaxon Stephens MD [address] [place] [address], [facility] [address] [place] [address] Lymphocyte-rich Hodgkin lymphoma of lymph [...] History of tobacco abuse. -12/29/2018 CT chest [facility]. No malignancy. Left axilla showing a 1.3 cm lymph node shortness axis. - 11/22/2019 2 pack/day for 46 years for total of 42 pack to pack year history. Followed by Dr Donta hernandez in [place]. -Scheduled for a yearly screening CT chest [...] the wound got infected was admitted to [facility] for IV antibiotics, after few days he [...] ??? Anxiety ??? Depression ??? Emphysema lung ([facility]) ??? Emphysema of lung ([facility]) ??? ETOH abuse ??? GERD (gastroesophageal reflux disease) ??? 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 Seizures ([facility]) Allergies: Allergies Allergen Reactions ??? Wellbutrin [...] the wound got infected was admitted to [facility] for IV antibiotics he left AMA before finishing a course. Due to delays in multiple infectious complications and the risk of immunosuppression from further chemotherapy and psychiatric decompensation due to high-dose steroids and chemotherapy recommended radiation to the left axilla. Dr. Brady completed with complete resolution of the adenopathy. July was admitted to [facility] later transferred to [facility] for pneumonia/empyema. RequiringPleurx catheter x2. Discharge about [...] a day. CC; Herman [place]. Code 66577: This note was transcribed using [employer] voice recognition software please excuse any mistranslations. Jaxon Stephens MD [facility] documented in this encounter Plan of [...] 11/02/2022 added in this encounter Care Teams Rn Assessment Relationship Specialty Start Date End Date Lynn Solis CERAMICS TEST ENGINEER [address] [place] [address] PCP - General 05/28/14 09/15/21 documented as of this encounter
--- OUTSIDE RECORDS SUMMARY | 2024-02-03 22:30 | XMS_ITS | Encounter Summary ---
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 Follow-up to review the results is planned. History of Presenting Illness: Fran Justin, who goes by Darren, has Hodgkin's lymphoma of left axilla??s/p??1 cycle of chemotherapy delivered and 30 Gy radiation. ??Medical history includes anxiety, depression, COPD, history of alcohol abuse and seizures. ?? [facility]. ?? Classic Hodgkin lymphoma, lymphocyte rich subtype. Stage IB ??? 12/20/17 CT handy General the patient is a [facility] in follow up left lung noduleand [...] unchanged compared to December 2019 (series [id number]). A few additional sub-6 mm nodules are [...] of the visit. Ed Brady MD Radiation Oncology-[facility] (p) [phone] / (f) [phone] documented in this encounter Plan of Treatment [...] daily. added in this encounter Care Teams Outside Production Inspector Relationship Specialty Start Date End Date Lian Parnell FNP [address] [place] [phone] PCP - General Family Medicine - Primary Care 09/16/21 CHARLENE URIOSTEGUI Pulmonary Disease 01/29/21 documented as of this encounter
--- OUTSIDE RECORDS SUMMARY | 2024-02-03 22:30 | XMS_ITS | Encounter Summary ---
Author Organization [facility] Address [address] [place] [address] Care Team Providers Care Sales Representative [employer] Supp[employer] Name Role Phone Lian Parnell Primary Care Provider Reason for Referral * Radiology Services (Routine/Next Available) - Authorization Not Required Specialty Diagnoses / Procedures Referred By Contac t Referred To Contact Diagnoses Nicotine dependence, cigarettes, uncomplicated Procedures CT CHEST LOW DOSE LUNG SCREENING Lian Parnell FNP [address] [place] [address] [facility] Referral ID Status Reason Start Date Expiration Date Visits Requested Visits Authorized [id number] Authorization Not Required 09/08/2022 1 1 Reason for Visit * Radiology Services (Routine/Next Available) - Authorization Not Required Specialty Diagnoses / Procedures Referred By Mavis rhodes Referred To Contact Diagnoses Nicotine dependence, cigarettes, uncomplicated Procedures CT CHEST LOW DOSE LUNG SCREENING Lian Parnell FNP [address] [place] [address] [facility] Referral ID Status Reason Start Date Expiration Date Visits Requested Visits Authorized [id number] Authorization Not Required 09/08/2022 1 1 Encounter Details Date Type Department Care Team (Latest Contact Info) Description 10/05/2022 12:56 EDT - 10/05/2022 23:[address] [facility] CT Scan [address] [place] [address] Nicotine dependence, cigarettes, uncomplicated Discharge Disposition: Home [...] uncomplicated documented in this encounter Care Teams Sales Representative [employer] Relationship Specialty Start Date End Date Lian Parnell FNP [address] [place] [phone] PCP - General Family Medicine - Primary Care 09/16/21 CHARLENE URIOSTEGUI Pulmonary Disease 01/29/21 documented as of this encounter
--- OUTSIDE RECORDS SUMMARY | 2024-02-03 22:30 | XMS_ITS | Encounter Summary ---
Author Organization [facility] Address [address] [place] [address] Care Team Providers Care Film Composer Name Role Phone Lian Parnell DISTRIBUTOR ADVERTISING MATERIAL Primary Care Provider [phone] Reason for Visit * Reason Comments Deep Vein Thrombosis Transfer from [facility] for RLE DVT. Encounter Details Date Type Department Care Team (Late st Contact Info) Description 06/27/2022 21:37 EST - 06/27/2022 23:35 EST Emergency [facility] Emergency Department - [address] [id number] Trey Lara, PAJessiC [address] [address] Ranjana Leslie MD [address] [place] [phone] Acute pain of right knee (Primary [...] Code Departure Means Destination Home or Self Half-Way documented in this encounter ED Notes * Hanh Pritchett RN - 06/27/2022 2331 EST Patient provided DC instructions with verbalized understanding. PIV removed. Ambulatory with steadygait. * Ranjana Leslie MD - 06/27/2022 2304 EST I, Alisha Miller, am scribing for Ranjana Leslie MD while he/she is personally performing the service. Alisha Miller 06/27/2022 23:04 Fran Rios Nhan Tuyet is a 57 y.o. male who presents to the ED with leg pain. The patient was seen at [facility] and sent here to rule out DVT. [...] alcohol abuse, anxiety, was sent here from [facility] for rule out DVT. Patient has [...] KASANDRA - 06/27/20222151 EST Pt transferred from [facility] for RLE DVT. Pt is [...] (06/27/2022 22:00 EST) Hold Hold 06/27/2022 23:15 [facility] Blood VENOUS BLOOD / Unknown Venipuncture / Unknown 06/27/2022 22:00 EST 06/27/2022 22:03 EST Trey Lara PA-C LAB INFO SERVICE AND SUPPORT & PHONE RESULT Performing Organization Address City/State/[facility] Co de Phone Number [facility] [address] [place] [address] * (ABNORMAL) COMPLETE BLOOD COUNT AND DIFFERENTIAL (06/27/2022 22:00 EST) WBC 10.88(H) 4.00 - 10.40 K/cmm 06/27/2022 22:20 [facility] RBC 3.88(L) 4.36 - 5.78 M/cmm 06/27/2022 22:20 [facility] Hemoglobin 12.7(L) 13.8 - 17.3 gm/dL 06/27/2022 22:20 [facility] HCT 38.9(L) 39.5 - 50.2 % 06/27/2022 22:20 [facility] MCV 100(H) 81 - 95 fl 06/27/2022 22:20 [facility] MCH 32.7 27.6 - 33.0 pg 06/27/2022 22:20 [facility] MCHC 32.6(L) 32.8 - 36.4 gm/dL 06/27/2022 22:20 [facility] RDW-CV 14.6(H) <14.2 % 06/27/2022 22:20 [facility] RDW-SD 54.4(H) <46.0 fl 06/27/2022 22:20 [facility] PLT 386(H) 141 - 377 K/cmm 06/27/2022 22:20 [facility] MPV 9.1(L) 9.5 - 12.7 fl 06/27/2022 22:20 [facility] % Neutrophils 72.8 % 06/27/2022 22:20 [facility] % Lymphocytes 15.3 % 06/27/2022 22:20 [facility] % Monocytes 9.1 % 06/27/2022 22:20 [facility] % Eosinophils 2.0 % 06/27/2022 22:20 [facility] % Basophils 0.5 % 06/27/2022 22:20 [facility] % Immature Grans 0.3 % 06/27/19 22:20 [facility] Absolute Neutrophils 7.92 2.20 - 8.85 K/cmm 06/27/2022 22:20 [facility] Absolute Lymphocytes 1.67 1.09 - 3.30 K/cmm 06/27/2022 22:20 [facility] Absolute Monocytes 0.99(H) 0.10 - 0.80 K/cmm 06/27/2022 22:20 [facility] Absolute Eosinophils 0.22 0.03 - 0.61 K/cmm 06/27/2022 22:20 [facility] ABS Basophils 0.05 0.01 - 0.11 K/cmm 06/27/2022 22:20 [facility] Absolute Immature Grans 0.03 0.00 - 0.06 K/cmm 06/27/2022 22:20 [facility] Type of Differential: Auto 06/27/2022 22:20 [facility] Blood VENOUS BLOOD / Unknown Venipuncture / Unknown 06/27/2022 22:00 EST 06/27/2022 22:03 EST Trey Lara PA-C PACKAGES & DNA PROBE ORDERABLES Performing Organization Address City/[facility]/ZIP Co de Phone Number [facility] [address] [place] [address] * C REACTIVE PROTEIN (06/27/2022 21:57 EST) C-Reactive Protein <7.0 <10.0 mg/L 06/27/2022 22:28 EST [facility] Blood VENOUS BLOOD / Unknown Venipuncture / Unknown 06/27/2022 21:57 EST 06/27/2022 22:03 EST Trey Lara PA-C CHEMISTRY & BLOOD GA S ORDERABLES Performing Organization Address [facility] Co de Phone Number [facility] [address] [place] [address] * CK (06/27/2022 21:57 EST) CK 101 <=250 U/L 06/27/2022 22:28 EST [facility] Blood VENOUS BLOOD / Unknown Venipuncture / Unknown 06/27/2022 21:57 EST 06/27/2022 22:03 EST Trey Lara PA-C CHEMISTRY & BLOOD GA S ORDERABLES Performing Organization Address [facility]/ZIP Co de Phone Number [facility] [address] [place] [address] * (ABNORMAL) COMPREHENSIVE METABOLIC PANEL (CMP) (06/27/2022 21:57 EST) Sodium 139 136 - 145 mmol/L 06/27/2022 22:28 EST [facility] Potassium 4.2 3.5 - 5.0 mmol/L 06/27/2022 22:28 EST [facility] Chloride 105 96 - 110 mmol/L 06/27/2022 22:28 EST [facility] CO2 Total 28 22 - 32 mmol/L 06/27/2022 22:28 EST [facility] Glucose 90 70 - 100 mg/dL 06/27/2022 22:28 [facility] BUN 9(L) 10 - 26 mg/dL 06/27/2022 22:28 [facility] Creatinine 0.65(L) 0.66 - 1.25 mg/dL 06/27/2022 22:28 [facility] eGFR 109 >60 mL/min/1.7 3m2 06/27/2022 22:28 [facility] Total Protein 6.4 6.3 - 8.2 g/dL 06/27/2022 22:28 [facility] Albumin 3.7 3.4 - 4.9 g/dL 06/27/2022 22:28 [facility] Alkaline Phosphatase 56 38 - 126 U/L 06/27/2022 22:28 [facility] AST 21 15 - 46 U/L 06/27/2022 22:28 [facility] ALT 16 <50 U/L 06/27/2022 22:28 [facility] Bilirubin, Total <0.5 <1.4 mg/dL 06/27/19 22:28 [facility] Calcium 8.8 8.5 - 10.5 mg/dL 06/27/2022 22:28 [facility] Albumin/Globulin Ratio 1.4 1.0 - 2.5 06/27/2022 22:28 [facility] Anion Gap 6 5 - 14 06/27/2022 22:28 [facility] Blood VENOUS BLOOD / Unknown Venipuncture / Unknown 06/27/2022 21:57 EST 06/27/2022 22:03 EST Trey Lara PA-C CHEMISTRY & BLOOD GA S ORDERABLES [facility] [address] [place] [address] documented in this encounter Visit Diagnoses Diagnosis [...] 06/27 documented in this encounter Care Teams Film Composer Relationship Specialty Start Date End Date Lian Parnell FNP [address] [place] [address] PCP - General Family Medicine - Primary Care 09/16/21 CHARLENE URIOSTEGUI Pulmonary Disease 01/29/21 documented as of this encounter
--- OUTSIDE RECORDS SUMMARY | 2024-02-03 22:30 | XMS_ITS | Encounter Summary ---
Author Organization [facility] Address [address] [place] [address] Care Team Providers Care Field Examiner Name Role Phone Lian Parnell TECHNICAL TRAINING INSTRUCTOR Primary Care Provider [phone] Encounter Details Date Type Department Care Team (Late st Contact Info) Description 10/16/2021 Documentation Visit [facility] Radiation Oncology - [facility] [address] [place] [address] Krystal Sanchez, RN Social History Tobacco Use [...] filedocumented in this encounter Care Teams Field Examiner Relationship Specialty Start Date End Date Lian Parnell FNP [address] [place] [phone] PCP - General Family Medicine - Primary Care 09/16/21 CHARLENE URIOSTEGUI Pulmonary Disease 01/29/21 documented as of this encounter
--- OUTSIDE RECORDS SUMMARY | 2024-02-03 22:30 | XMS_ITS | Encounter Summary ---
Author Organization [facility] Address [address] [place] [address] Care Team Providers Care Medical Unit Secretary Name Role Phone Lynn Solis BLOWING ENGINEER Primary Care Provider [phone] Lian Parnell CURATOR Primary Care Provider [phone] Encounter Details Date Type Department Care Team (Late st Contact Info) Description 09/02/2021 Lab Requisition [facility] Pathology & Laboratory Medicine - [address] [address] Outr Resulting Lab, Provider Social History Tobacco [...] & BLOOD GAS ORDERABLES Performing Organization Address City/State/[facility] Co de Phone Number [facility] [address] [place] [address] documented in this encounter Visit Diagnoses Not on filedocumented in this encounter Care Teams Medical Unit Secretary Relationship Specialty Start Date End Date Lynn Solis NP [address] [place] [address] PCP - General 05/28/14 09/15/21 Lian Parnell FNP [address] [place] [phone] PCP - General Family Medicine - Primary Care 09/16/21 CHARLENE URIOSTEGUI Pulmonary Disease 01/29/21 documented as of this encounter
--- OUTSIDE RECORDS SUMMARY | 2024-02-03 22:30 | XMS_ITS | Encounter Summary ---
Author Organization [facility] Address [address] [place] [address] Care Team Providers Care Senior Quality Assurance Specialist Name Role Phone Lian Parnell NURSING INFORMATICS CLINICAL ANALYST Primary Care Provider [phone] Encounter Details Date Type Department Care Team (Late st Contact Info) Description 09/16/2021 Documentation Visit [facility] Radiation Oncology - [facility] [address] [place] [address] Krystal Sanchez, RN Social History Tobacco Use [...] in this encounter Care Teams Senior Quality Assurance Specialist Relationship Specialty Start Date End Date Lian Parnell FNP [address] [place] [phone] PCP - General Family Medicine - Primary Care 09/16/21 CHARLENE URIOSTEGUI Pulmonary Disease 01/29/21 documented as of this encounter
--- OUTSIDE RECORDS SUMMARY | 2024-02-03 22:30 | XMS_ITS | Encounter Summary ---
Author Organization [facility] Address [address] [place] [address] Care Team Providers Care Chalk Tester Name Role Phone Lynn Solis BLUEPRINT CUTTER Primary Care Provider [phone] SWEEPER OPERATOR Primary Care Provider [phone] Encounter Details Date Type Department Care Team (Late st Contact Info) Description 03/25/2021 Lab Requisition [facility] Pathology & [place] [address] Outr Resulting Lab, Provider Social History Tobacco [...] Surface Ag Negative Negative 03/26/20 14:02 EDT [facility] Hep B Surface Ab, Quantitative <3.1 See Note mIU/mL 03/26/2021 14:02 EDT [facility] Comment: Reference Range for Hep B Surface Ab, Quant: Positive: >= 10.0 mIU/mL Negative: ??< 10.0 mIU/mL Patient is presumed to not be immune to infection with Hepatitis B Virus. Hep B Surface Ab, Qualitative Negative See Note 03/26/2021 14:02 EDT [facility] Comment: Reference Range for Hep B Surface Ab, Qual: Unvaccinated: ??Negative Vaccinated: ??Positive Hepatitis B Core Ab, Total Negative Negative 03/26/2021 14:02 EDT [facility] Hep C Antibody Negative Negative 03/26/2021 14:02 T [facility] Blood VENOUS BLOOD / Unknown 03/24/2021 18:07 EDT 03/25/2021 16:16 EDT Provider Outr Resulting Lab CHEMISTRY & BLOOD GAS ORDERABLES Performing Organization Address City/State/[facility] Co de Phone Number [facility] [address] [place] [address] documented in this encounter Visit Diagnoses Not on filedocumented in this encounter Care Teams Chalk Tester Relationship Specialty Start Date End Date Lynn Solis NP [address] [place] [address] PCP - General 05/28/14 09/15/21 Lian Parnell FNP [address] [place] [phone] PCP - General Family Medicine - Primary Care 09/16/21 CHARLENE URIOSTEGUI Pulmonary Disease 01/29/21 documented as of this encounter
--- OUTSIDE RECORDS SUMMARY | 2024-02-03 22:30 | XMS_ITS | Encounter Summary ---
Author Organization [facility] Address [address] [place] [address] Care Team Providers Care Religious Studies Professor Name Role Phone Lian Parnell OXYGEN SYSTEM TESTER Primary Care Provider [phone] Encounter Details Date Type Department Care Team (Late st Contact Info) Description 11/02/2022 Documentation Visit [facility] Cancer [facility] [address] [place] [address] Taty Flores, RN Social History Tobacco Use [...] on filedocumented in this encounter Care Teams Religious Studies Professor Relationship Specialty Start Date End Date Lian Parnell FNP [address] [place] [phone] PCP - General Family Medicine - Primary Care 09/16/21 CHARLENE URIOSTEGUI Pulmonary Disease 01/29/21 documented as of this encounter
--- OUTSIDE RECORDS SUMMARY | 2024-02-03 22:30 | XMS_ITS | Encounter Summary ---
Author Organization [facility] Address [address] [place] [address] Care Team Providers Care Cider Maker Name Role Phone Lian Parnell DAIRY FROZEN MANAGER Primary Care Provider [phone] Reason for Visit * Reason Onset Date Comments Results 11/03/2022 Encounter Details Date Type Department Care Team (Late st Contact Info) Description 11/03/2022 Telephone [facility] Cancer Treatment [place] [address] [place], [place] [phone] Ed Brady MD [address] [facility] 2 [place] [address] Results Social History Tobacco Use [...] to see him after the PET scan. [facility] PET scan will be requested. documented in this encounter Plan of Treatment Not on file documented as of this encounter Visit Diagnoses Not on filedocumented in this encounter Care Teams Cider Maker Relationship Specialty Start Date End Date Lian Parnell, CODY [address] [place] [address] PCP - General Family Medicine - Primary Care 09/16/21 CHARLENE URIOSTEGUI Pulmonary Disease 01/29/21 documented as of this encounter
--- OUTSIDE RECORDS SUMMARY | 2024-02-03 22:30 | XMS_ITS | Encounter Summary ---
Author Organization [facility] Address [address] [place] [address] Care Team Providers Care Ic Designer Custom Name Role Phone Lian Parnell CERTIFIED DIETARY MANAGER Primary Care Provider [phone] Reason for Visit * Reason Comments Cancer Encounter Details Date Type Department Care Team (Late st Contact Info) Description 10/16/2021 14:00 EDT Office Visit [facility] Cancer Treatment [place] [address] [place] [address] Ed Brady MD 111 [facility] 2 [place] [address] Lymphocyte-rich Hodgkin lymphoma of lymph [...] lymphoma of lymph nodes of axilla (HCC-CMS) ([facility]) 06/13/2020 Initial Diagnosis 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 He continues primary care follow-up in [facility]. 2. 11/21/21 he has follow-up in Pulmonary with Dr. Charlene Uriostegui in [place] at [facility]. I will attempt to [...] and seizures. The records are reviewed from [facility], [facility]ir[facility] and Dr. Stephens. ?? Classic Hodgkin lymphoma, lymphocyte rich subtype. Stage IB ?? 12/20/17 CT handy General the patient is a [facility] in follow up left lung nodule [...] ?? 06/22/2020 Dr. Blanca Naik performed at [facility] right carpal tunnel surgery. A [...] the wound got infected was admitted to [facility] for IV antibiotics he [...] that he has pulmonary medicine follow-up in [facility] with Dr. Charlene Uriostegui in October. [...] unchanged compared to December 2019 (series [id number]). A few additional sub-6 mm nodules are [...] of the visit. Ed Brady MD Radiation Oncology-[facility] (p) [phone] / (f) [phone] documented in this encounter Plan of Treatment [...] 11/02/2022 added in this encounter Care Teams Ic Designer Custom Relationship Specialty Start Date End Date Lian Parnell FNP [address] [place] [phone] PCP - General Family Medicine - Primary Care 09/16/21 CHARLENE URIOSTEGUI Pulmonary Disease 01/29/21 documented as of this encounter
--- OUTSIDE RECORDS SUMMARY | 2024-02-03 22:30 | XMS_ITS | Encounter Summary ---
Author Organization [facility] Address [address] [place] [address] Care Team Providers Care Outsole Splicer Name Role Phone Lian Parnell Primary Care Provider [phone] Encounter Details Date Type Department Care Team [...] on filedocumented in this encounter Care Teams Outsole Splicer Relationship Specialty Start Date End Date Lian Parnell FNP [address] [place] [address] PCP - General Family Medicine - Primary Care 09/16/21 CHARLENE URIOSTEGUI Pulmonary Disease 01/29/21 documented as of this encounter
--- OUTSIDE RECORDS SUMMARY | 2024-02-03 22:31 | XMS_ITS | Encounter Summary ---
Author Organization [facility] Address [address] [place] [address] Care Team Providers Care Resin Shaver Name Role Phone Lynn Solis DIRECT CASTING OPERATOR Primary Care Provider [phone] Lian Parnell STENCIL CUTTER Primary Care Provider [phone] Encounter Details Date Type Department Care Team (Late st Contact Info) Description 07/24/2020 Results Only Imaging [facility] Radiology Results [address] [place] [address] Jaxon Stephens MD [address] [place] [phone] Social History Tobacco Use Types Packs/Day Years [...] CC: ? Transcribed Date/Time: 07/24/2020 (0917) ? Washtub Worker Helper: ? Printed Date/Time: 07/24/2020 (0918) ? PAGE [...] Shukla MD CC: Transcribed Date/Time: 07/24/2020 (916) Washtub Worker Helper: Printed Date/Time: 07/24/2020 (917) PAGE 1 Signed Report Jaxon Stephens MD IMG NM ORDERABLES documented in this encounter Visit Diagnoses Not on filedocumented in this encounter Care Teams Resin Shaver Relationship Specialty Start Date End Date Lynn Solis NP [address] [place] [address] PCP - General 05/28/14 09/15/21 Lian Parnell FNP [address] [place] [phone] PCP - General Family Medicine - Primary Care 09/16/21 CHARLENE URIOSTEGUI Pulmonary Disease 01/29/21 documented as of this encounter
--- OUTSIDE RECORDS SUMMARY | 2024-02-03 22:31 | XMS_ITS | Encounter Summary ---
Author Organization [facility] Address [address] [place] [address] Care Team Providers Care Piece Worker Name Role Phone Lynn Solis HEAT TREATING FURNACE TENDER Primary Care Provider [phone] Reason for Referral * Referral (Routine/Next Available) - Specialty Report Received Specialty Diagnoses / Procedures Referred By Mavis rhodes Referred To Contact Pain Medicine Diagnoses Low back pain radiating to both legs Marifer Costello PA-C [address] [place] [address] [facility] [address] [place] [address] Referral ID Status Reason Start Date Expiration Date Visits Requested Visits Authorized [id number] Specialty Report Received Specialty Services Required 9 [...] Diagnoses Chronic low back pain Lynn Solis, HEAT TREATING FURNACE TENDER [address] [place] [address] Marifer Costello PA-C [address] [place] [address] Referral ID Status Reason Start Date Expiration Date Visits Re quested Visits Authorized [id number] Closed 1 1 Encounter Details Date Type Department Care Team (Late st Contact Info) Description 03/23/2019 13:45 EDT Office Visit [facility] Spine Program - [address] [place] [address] Marifer Costello PA-C [address] [facility] [place] [address] Low back pain radiating to [...] documented in this encounter Progress Notes * SukumartaniyaMarifer soriano - 03/23/2019 1345 EDT Mr. Justin [...] Lumbago documented in this encounter Care Teams Piece Worker Relationship Specialty Start Date End Date Lynn Solis, NIALL [address] [place] [address] PCP - General 05/28/14 09/15/21 documented as of this encounter
--- OUTSIDE RECORDS SUMMARY | 2024-02-03 22:31 | XMS_ITS | Encounter Summary ---
Author Organization [facility] Address [address] [place] [address] Care Team Providers Care Industrial Robotics Mechanic Name Role Phone Will Lynn B PATTERN GRADER Primary Care Provider Reason for Visit * Reason Onset Date Comments Appointment Related 07/16/2020 Encounter Details Date Type Department Care Team (Late st Contact Info) Description 07/16/2020 Telephone [facility] Adult Hematology & Oncology [address] [place] [phone] Jaxon Stephens MD [address] [place] [address] [address] [place] [phone] Appointment Related Social History Tobacco Use Types [...] Vee, KASANDRA - 07/16/2020 0942 EST Called [facility], spoke with Santa. She states they don't [...] system. Says PT is usually seen at [facility]. documented in this encounter Plan of Treatment Not on file documented as of this encounter Visit Diagnoses Not on filedocumented in this encounter Care Teams Industrial Robotics Mechanic Relationship Specialty Start Date End Date Lynn Solis NP [address] [place] [address] PCP - General 05/28/14 09/15/21 documented as of this encounter
--- OUTSIDE RECORDS SUMMARY | 2024-02-03 22:31 | XMS_ITS | Encounter Summary ---
Author Organization [facility] Address [address] [place] [address] Care Team Providers Care Heel Seat Fitter Machine Name Role Phone Lynn Solis NP Primary Care Provider [phone] Reason for Visit * (Routine) - Receiving Office to Obtain Authorization Specialty Diagnoses / Procedures Referred By Mavis rhodes Referred To Contact Procedures CT OUTSIDE IMAGES CHEST Unknown, Provider, Referral ID Status Reason Start Date Expiration Date Visits Requested Visits Authorized [id number] Receiving Office to Obtain Authorization 08/08/2020 1 1 Encounter Details Date Type Department Care Team (Latest Contact Info) Description 01/24/2020 - 01/24/2020 23:59 EDT Hospital Encounter [facility] Secondary Reads [place] Discharge Disposition: [...] on filedocumented in this encounter Care Teams Heel Seat Fitter Machine Relationship Specialty Start Date End Date Lynn Solis, MESH WORKER [address] [place] [address] PCP - General 05/28/14 09/15/21 documented as of this encounter
--- OUTSIDE RECORDS SUMMARY | 2024-02-03 22:31 | XMS_ITS | Encounter Summary ---
Author Organization [facility] Address [address] [place] [address] Care Team Providers Care Satellite Project Site Monitor Name Role Phone Lynn Solis HAND TOOL FILER Primary Care Provider [phone] Lian Parnell DINKEY PRESS OPERATOR Primary Care Provider [phone] Encounter Details Date Type Department Care Team (Late st Contact Info) Description 07/11/2020 Lab Requisition [facility] Pathology & [place] [address] Outr Resulting Lab, Provider Social History Tobacco [...] 20 - 40 mg/dL 07/12/2020 10:03 EST [facility] Blood VENOUS BLOOD / Unknown 07/10/2020 16:17 EST 07/11/2020 22:37 EST Provider Outr Resulting Lab CHEMISTRY & BLOOD GAS ORDERABLES [facility] [address] [place] [address] documented in this encounter Visit Diagnoses Not on filedocumented in this encounter Care Teams Satellite Project Site Monitor Relationship Specialty Start Date End Date Lynn Solis, NIALL [address] [place] [address] PCP - General 05/28/14 09/15/21 Lian Parnell FNP [address] [place] [phone] PCP - General Family Medicine - Primary Care 09/16/21 CHARLENE URIOSTEGUI Pulmonary Disease 01/29/21 documented as of this encounter
--- OUTSIDE RECORDS SUMMARY | 2024-02-03 22:31 | XMS_ITS | Encounter Summary ---
Author Organization [facility] Address [address] [place] [address] Care Team Providers Care Professional Development Director Name Role Phone Will Lynn Iris TIERNEY Primary Care Provider [phone] Reason for Visit * Reason Comments Follow-up Encounter Details Date Type Department Care Team (Late st Contact Info) Description 07/10/2020 15:30 EST Office Visit [facility] Adult Hematology & Oncology [facility] [place], [place] [phone] Vira Chavez MD [address] [place] [address], [facility] [address] [place] [address] Lymphocyte-rich Hodgkin lymphoma of lymph [...] History of tobacco abuse. -12/29/2018 CT chest [facility]. No malignancy. Left axilla showing a 1.3 cm lymph node shortness axis. - 11/22/2019 2 pack/day for 46 years for total of 42 pack to pack year history. Followed by Dr Donta hernandez in [place]. -Scheduled for a yearly screening CT chest [...] admitted to [facility] for IV antibiotics, after few days [...] ??? Anxiety ??? Depression ??? Emphysema lung ([facility]) ??? Emphysema of lung ([facility]) ??? ETOH abuse ??? GERD (gastroesophageal reflux disease) ??? 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 Seizures ([facility]) Allergies: Allergies Allergen Reactions ??? Wellbutrin [...] Brooks, Herman Carlos ONP. Vira Chavez MD [facility] documented in this encounter Miscellaneous [...] 11/02/2022 added in this encounter Care Teams Professional Development Director Relationship Specialty Start Date End Date Lynn Solis, STROBOROMA OPERATOR [address] [place] [address] PCP - General 05/28/14 09/15/21 documented as of this encounter
--- OUTSIDE RECORDS SUMMARY | 2024-02-03 22:31 | XMS_ITS | Encounter Summary ---
Author Organization [facility] Address [address] [place] [address] Care Team Providers Care Safety Sealer Name Role Phone Will Lynn Iris TIERNEY Primary Care Provider Reason for Referral * Consult (Routine) - Closed Specialty Diagnoses / Procedures Referred By Mavis rhodes Referred To Contact Pain Medicine Diagnoses Low back pain radiating to both legs Marifer Costello PA-C [address] [place] [phone] [facility] [address] [place] [address] Referral ID Status Reason Start Date Expiration Date V isits Requested Visits Authorized [id number] Closed Specialty Services Required 02/28/2015 1 1 Question Answer Reason for Request: Low back pain radiating to both legs Comments Recommend L4-L5 MITESH Reason for Visit * Reason Comments Back Pain MBB f/u 0% relief Encounter Details Date Type Department Care Team (Late st Contact Info) Description 02/28/2015 15:15 EDT Office Visit [facility] Spine Program - [facility] [place] [address] Marifer Costello PA-C [address] [place] [address] Low back pain radiating to both [...] 03/13/2020 added in this encounter Care Teams Safety Sealer Relationship Specialty Start Date End Date Lynn Solis DYE BLENDER [address] [place] [address] PCP - General 05/28/14 09/15/21 documented as of this encounter
--- OUTSIDE RECORDS SUMMARY | 2024-02-03 22:31 | XMS_ITS | Encounter Summary ---
Author Organization [facility] Address [address] [place] [address] Care Team Providers Care Rack Loader Name Role Phone Lynn Solis PSYCHIATRIC NP Primary Care Provider [phone] Lian Parnell HAND WRAPPER OPERATOR Primary Care Provider [phone] Encounter Details Date Type Department Care Team (Late st Contact Info) Description 03/13/2020 Lab Requisition [facility] Pathology & [place] [address] Outr Resulting Lab, Provider Social History Tobacco [...] rt-PCR Result NEGATIVE Negative 03/15/2020 8:18 EDT [facility] Comment: 2019-novel Coronavirus (2019-nCoV) not detected [...] in accordance with CLIA regulations, College of [employer] Pathologists (CAP) guidelines (Aug 17, 2019), and FDA guidance (Jul 29, 2019). This test is only for use under the Food and Drug Administration's Emergency Use Authorization. Swab ENTIRE NASOPHARYNX / Unknown 03/13/2020 18:00 EDT 03/13/2020 22:16 EDT Provider Outr Resulting Lab MICROBIOLOGY - GENERAL ORDERABLES [facility] [place], [place] * COVID-19 TESTING (03/13/2020 18:00 EDT) COVID-19 rt-PCR Result NEGATIVE Negative 03/15/2020 9:19 EDT [facility] Comment: 2019-novel Coronavirus (2019-nCoV) not detected [...] in accordance with CLIA regulations, College of [employer] Pathologists (CAP) guidelines (Aug 17, 2019), and FDA guidance (Jul 29, 2019). This test is only for use under the Food and Drug Administration's Emergency Use Authorization. Performing Lab [facility] 03/15/2020 9:19 EDT [facility] Swab 03/13/2020 18:0 0 EDT 03/13/2020 22:16 EDT Provider Outr Resulting Lab MICROBIOLOGY - GENERAL ORDERABLES [facility] [address] [place] [address] [facility] [place], [place] documented in this encounter Visit Diagnoses Not on filedocumented in this encounter Care Teams Rack Loader Relationship Specialty Start Date End Date Lynn Solis NP [address] [place] [address] PCP - General 05/28/14 09/15/21 Lian Parnell FNP [address] [place] [address] PCP - General Family Medicine - Primary Care 09/16/21 CHARLENE URIOSTEGUI Pulmonary Disease 01/29/21 documented as of this encounter
--- OUTSIDE RECORDS SUMMARY | 2024-02-03 22:31 | XMS_ITS | Encounter Summary ---
Author Organization [facility] Address [address] [place] [address] Care Team Providers Care Flash Welding Machine Operator Name Role Phone Lynn Solis PONY ROUGHER Primary Care Provider [phone] Lian Parnell AIRCRAFT LAUNCH AND RECOVERY TECHNICIAN Primary Care Provider [phone] Encounter Details Date Type Department Care Team (Late st Contact Info) Description 01/23/2020 Lab Requisition [facility] Pathology & [place] [address] Outr Resulting Lab, Provider Social History Tobacco [...] 211 - 911 pg/mL 01/23/2020 22:[address] [facility] Blood VENOUS BLOOD / Unknown 01/22/2020 17:24 EDT 01/23/2020 22:07 EDT Provider Outr Resulting Lab CHEMISTRY & BLOOD GAS ORDERABLES [facility] [address] [place] [address] documented in this encounter Visit Diagnoses Not on filedocumented in this encounter Care Teams Flash Welding Machine Operator Relationship Specialty Start Date End Date Lynn Solis NP [address] [place] [address] PCP - General 05/28/14 09/15/21 Lian Parnell FNP [address] [place] [phone] PCP - General Family Medicine - Primary Care 09/16/21 CHARLENE URIOSTEGUI Pulmonary Disease 01/29/21 documented as of this encounter
--- OUTSIDE RECORDS SUMMARY | 2024-02-03 22:31 | XMS_ITS | Encounter Summary ---
Author Organization [facility] Address [address] [place] [address] Care Team Providers Care Marble Ceiling Installer Name Role Phone Lynn Solis NP Primary Care Provider [phone] Reason for Visit * Reason Comments Follow-up Encounter Details Date Type Department Care Team (Latest Contact Info) Description 11/22/2019 12:00 EDT Office Visit [facility] Adult Hematology & Oncology [address] [place] [phone] Jaxon Stephens MD [address] [place] [address] [address] [place] [address] Lymphadenopathy (Primary Dx) Social History [...] history. Followed by Dr Donta hernandez in [place]. -Scheduled for a yearly screening CT chest [...] COPD followed by Dr. Mcneil pulmonary at [facility]. Had a CT of the chest [...] Data Review: Labs: Imagin10/31/2019: [facility]. Left axillary lymph [...] COPD followed by Dr. Mcneil pulmonary at [facility]. Had a CT of thechest December 2018 scheduled for follow-up in December 2019. 3. Tobacco abuse upwards of 2 packs/day since age 8 no radiographic evidence of pulmonary cancer, encouraged him to seek help and try 1 of the smoke cessation programs available through the [facility], we have a program at [facility] that is funded by the [facility] and free for him if he wishes [...] the left axillary nodes. Jaxon Stephens MD [facility] documented in this encounter Plan of Treatment Not on file documented as of this encounter Visit Diagnoses Diagnosis Lymphadenopathy- Primary Enlargement of lymph nodes documented in this encounter Care Teams Marble Ceiling Installer Relationship Specialty Start Date End Date Lynn Solis NP [address] [place] [address] PCP - General 05/28/14 09/15/21 documented as of this encounter
--- OUTSIDE RECORDS SUMMARY | 2024-02-03 22:31 | XMS_ITS | Encounter Summary ---
Author Organization [facility] Address [address] [place] [address] Care Team Providers Care Preparation Operator Name Role Phone Lynn Solis APPLICATION MANAGER Primary Care Provider [phone] Lian Parnell IT INVESTMENT/PORTFOLIO MANAGER Primary Care Provider [phone] Encounter Details Date Type Department Care Team (Late st Contact Info) Description 04/24/2020 Lab Requisition [facility] Pathology [place] [address] Outr Resulting Lab, Provider Social History Tobacco [...] Surface Ag Negative Negative 05/29/20 14:34 EST [facility] Hep B Surface Ab, Quantitative <3.1 See Note mIU/mL 05/29/2020 14:34 EST [facility] Comment: Reference Range for Hep B Surface Ab, Quant: Positive: >= 10.0 mIU/mL Negative: ??< 10.0 mIU/mL Patient is presumed to not be immune to infection with Hepatitis B Virus. Hep B Surface Ab, Qualitative Negative See Note 05/29/2020 14:34 [facility] Comment: Reference Range for Hep B Surface Ab, Qual: Unvaccinated: ??Negative Vaccinated: ??Positive Hepatitis B Core Ab, Total Negative Negative 05/29/2020 14:34 EST [facility] Blood VENOUS BLOOD / Unknown 04/15/2020 8:40 EST 05/14/2020 13:43 EST Provider Outr Resulting Lab CHEMISTRY & BLOOD GAS ORDERABLES Performing Organization Address City/State/[facility] Co de Phone Number [facility] [address] [place] [address] documented in this encounter Visit Diagnoses Not on filedocumented in this encounter Care Teams Preparation Operator Relationship Specialty Start Date End Date Lynn Solis NP [address] [place] [address] PCP - General 05/28/14 09/15/21 Lian Parnell FNP [address] [place] [phone] PCP - General Family Medicine - Primary Care 09/16/21 CHARLENE URIOSTEGUI Pulmonary Disease 01/29/21 documented as of this encounter
--- OUTSIDE RECORDS SUMMARY | 2024-02-03 22:31 | XMS_ITS | Encounter Summary ---
Author Organization [facility] Address [address] [place] [address] Care Team Providers Care Deck Cadet Name Role Phone Lynn Solis FIRST AID ATTENDANT Primary Care Provider [phone] Lian Parnell SEAMLESS TUBE MILL OPERATOR Primary Care Provider [phone] Encounter Details Date Type Department Care Team (Late st Contact Info) Description 03/15/2020 Lab Requisition [facility] Pathology & [place] [address] Outr Resulting Lab, Provider Social History Tobacco [...] INTERPRETATION Testing canceled per Dr. Justice at [facility] Hematopathology Department. All charges have been credited. 03/25/2020 16:58 EDT [facility] Attestation By the signature below, the attending physician certifies that they have 1) personally conducted a gross and/or microscopic examination of the described specimen(s), and/or personally interpreted the results of laboratory testing of the described specimen(s), and 2) personally rendered or confirmed the above diagnosis. 03/25/2020 16:58 EDT [facility] at 1658 Clinical History Lt Axillary mass 16:58 EDT [facility] Testing Performed G-banded karyotype ordered but not completed 03/25/2020 16:58 EDT [facility] Scanned Images 03/25/2020 16:58 EDT [facility] ZZUNK ENTIRE LYMPH NODE / Unknown 03/15/2020 13:15 EDT 03/16/2020 8:37 EDT ZZUNK ENTIRE LYMPH NODE / Unknown 03/15/2020 13:15 EDT 03/16/2020 9:18 EDT Provider Outr Resulting Lab PATHOLOGY OR DERABLES Performing Organization Address City/State/[facility] [[email or web address]] Co de Phone Number [facility] [address] [place] [address] documented in this encounter Visit Diagnoses Not on filedocumented in this encounter Care Teams Deck Cadet Relationship Specialty Start Date End Date Lynn Solis NP [address] [place], [place] [address] PCP - General 05/28/14 09/15/21 Lian Parnell FNP [address] [place] [address] PCP - General Family Medicine - Primary Care 09/16/21 CHARLENE URIOSTEGUI Pulmonary Disease 01/29/21 documented as of this encounter
--- OUTSIDE RECORDS SUMMARY | 2024-02-03 22:31 | XMS_ITS | Encounter Summary ---
Author Organization [facility] Address [address] [place] [address] Care Team Providers Care Industrial Training Specialist Name Role Phone Lynn Solis HEARING AID MECHANIC Primary Care Provider [phone] Lian Parnell GRAVEL HAULER Primary Care Provider [phone] Encounter Details Date Type Department Care Team (Late st Contact Info) Description 03/05/2020 Lab Requisition [facility] Pathology & [place] [address] Outr Resulting Lab, Provider Social History Tobacco [...] 211 - 911 pg/mL 03/05/2020 23:00 EDT [facility] Blood VENOUS BLOOD / Unknown 03/05/2020 12:08 EDT 03/05/2020 22:06 EDT Provider Outr Resulting Lab CHEMISTRY & BLOOD GAS ORDERABLES [facility] [address] [place] [address] documented in this encounter Visit Diagnoses Not on filedocumented in this encounter Care Teams Industrial Training Specialist Relationship Specialty Start Date End Date Lynn Solis HEARING AID MECHANIC [address] [place] [address] PCP - General 05/28/14 09/15/21 Lian Parnell FNP [address] [place] [phone] PCP - General Family Medicine - Primary Care 09/16/21 CHARLENE URIOSTEGUI Pulmonary Disease 01/29/21 documented as of this encounter
--- OUTSIDE RECORDS SUMMARY | 2024-02-03 22:31 | XMS_ITS | Encounter Summary ---
Author Organization [facility] Address [address] [place] [address] Care Team Providers Care Darkroom Technician Name Role Phone Lynn Solis NP Primary Care Provider [phone] Reason for Visit * (Routine) - Receiving Office to Obtain Authorization Specialty Diagnoses / Procedures Referred By Mavis rhodes Referred To Contact Procedures CT OUTSIDE IMAGES CHEST Unknown, Provider, Referral ID Status Reason Start Date Expiration Date Visits Requested Visits Authorized [id number] Receiving Office to Obtain Authorization 09/11/2020 1 1 Encounter Details Date Type Department Care Team (Latest Contact Info) Description 09/10/2020 - 09/10/2020 23:59 EDT Hospital Encounter [facility] Secondary Reads [place] Discharge Disposition: Home or [...] on filedocumented in this encounter Care Teams Darkroom Technician Relationship Specialty Start Date End Date Lynn Solis, PANTRY GOODS MAKER [address] [place] [address] PCP - General 05/28/14 09/15/21 documented as of this encounter
--- OUTSIDE RECORDS SUMMARY | 2024-02-03 22:31 | XMS_ITS | Encounter Summary ---
Author Organization [facility] Address [address] [place] [address] Care Team Providers Care Agile Qa Tester Name Role Phone Lynn Solis GENERAL SALES MANAGER Primary Care Provider [phone] Lian Parnell POLICE COMMUNICATIONS DISPATCHER Primary Care Provider [phone] Encounter Details Date Type Department Care Team (Late st Contact Info) Description 06/24/2020 Lab Requisition [facility] Pathology & [place] [address] Outr Resulting Lab, Provider Social History Tobacco [...] ID No Anaerobes Isolated 06/28/2020 7:48 EST [facility] Tissue ENTIRE UPPER LIMB / Unknown 06/23/2020 14:23 EST 06/24/2020 21:39 EST Provider Outr Resulting Lab MICROBIOLOGY - GENERAL ORDERABLES Performing Organization Address City/State/[facility] Co de Phone Number [facility] [address] [place] [address] documented in this encounter Visit Diagnoses Not on filedocumented in this encounter Care Teams Agile Qa Tester Relationship Specialty Start Date End Date Lynn Solis, GENERAL SALES MANAGER [address] [place] [address] PCP - General 05/28/14 09/15/21 Lian Parnell FNP [address] [place] [phone] PCP - General Family Medicine - Primary Care 09/16/21 CHARLENE URIOSTEGUI Pulmonary Disease 01/29/21 documented as of this encounter
--- OUTSIDE RECORDS SUMMARY | 2024-02-03 22:31 | XMS_ITS | Encounter Summary ---
Author Organization [facility] Address [address] [place] [address] Care Team Providers Care Formula Room Worker Name Role Phone Will Lynn Iris TIERNEY Primary Care Provider Reason for Visit * Reason Comments Follow-up Encounter Details Date Type Department Care Team (Late st Contact Info) Description 06/12/2020 14:00 EST Office Visit [facility] Adult Hematology & Oncology [facility] [place], [place] [id number] Jaxon Stephens MD [address] [place] [address], [facility] [address] [place] [address] Lymphocyte-rich Hodgkin lymphoma of lymph [...] history. Followed by Dr Donta hernandez in [place]. -Scheduled for a yearly screening CT chest [...] ??? GERD (gastroesophageal reflux disease) ??? Seizures ([facility]) Allergies: Allergies Allergen Reactions ??? Wellbutrin [Bupropion [...] THIGH EXAM: PET/CT SCAN/PET/CT SKULL BASE TO AR EX. D/ (7836) CLINICAL INFORMATION: C81.44 LYMPHOCYTE-RICH HODGKIN LYMPHOMA OF [...] Kody Parry MD CC: Transcribed Date/Time: 2020 (3331) Liquor Merchant: TRACIE Printed Date/Time: 2020 (7778) PAGE 1 Signed Report Assessment: 1. Hodgkin [...] Consult time 40 minutes. 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
--- OUTSIDE RECORDS SUMMARY | 2024-02-03 22:31 | XMS_ITS | Encounter Summary ---
Author Organization [facility] Address [address] [place] [address] Care Team Providers Care Warp Spinner Name Role Phone Lynn Solis NP Primary Care Provider [phone] Reason for Visit * (Routine) - Receiving Office to Obtain Authorization Specialty Diagnoses / Procedures Referred By Mavis rhodes Referred To Contact Procedures XR OUTSIDE IMAGES CHEST Unknown, Provider, Referral ID Status Reason Start Date Expiration Date Visits Requested Visits Authorized [id number] Receiving Office to Obtain Authorization 09/11/2020 1 1 Encounter Details Date Type Department Care Team (Latest Contact Info) Description 09/07/2020 Hospital Encounter [facility] Secondary Reads [place] Discharge Disposition: Home [...] on filedocumented in this encounter Care Teams Warp Spinner Relationship Specialty Start Date End Date Lynn Solis, DUMPER OPERATOR [address] [place] [address] PCP - General 05/28/14 09/15/21 documented as of this encounter
--- OUTSIDE RECORDS SUMMARY | 2024-02-03 22:31 | XMS_ITS | Encounter Summary ---
Author Organization [facility] Address [address] [place] [address] Care Team Providers Care Restrictive Preparation Operator Name Role Phone Lynn Solis ASSURANCE SPECIALIST Primary Care Provider [phone] Lian Parnell SALVAGE WINDER AND INSPECTOR Primary Care Provider [phone] Encounter Details Date Type Department Care Team (Late st Contact Info) Description 07/11/2020 Lab Requisition [facility] Pathology & [place] [address] Outr Resulting Lab, Provider Social History Tobacco [...] 85 - 499 mg/dL 07/12/2020 10:02 EST [facility] Blood VENOUS BLOOD / Unknown 07/10/2020 16:17 EST 07/11/2020 22:37 EST Provider Outr Resulting Lab CHEMISTRY & BLOOD GAS ORDERABLES [facility] [address] [place] [address] documented in this encounter Visit Diagnoses Not on filedocumented in this encounter Care Teams Restrictive Preparation Operator Relationship Specialty Start Date End Date Lynn Solis, ASSURANCE SPECIALIST [address] [place] [address] PCP - General 05/28/14 09/15/21 Lian Parnell, SALVAGE WINDER AND INSPECTOR [address] [place] [phone] PCP - General Family Medicine - Primary Care 09/16/21 CHARLENE URIOSTEGUI Pulmonary Disease 01/29/21 documented as of this encounter
--- OUTSIDE RECORDS SUMMARY | 2024-02-03 22:31 | XMS_ITS | Encounter Summary ---
Author Organization [facility] Address [address] [place] [address] Care Team Providers Care Power Tool Repairer Name Role Phone Lynn Solis SAFETY REPRESENTATIVE Primary Care Provider [phone] Lian Parnell CONCRETE TECHNICIAN Primary Care Provider [phone] Encounter Details Date Type Department Care Team (Late st Contact Info) Description 03/15/2020 Lab Requisition [facility] Pathology & [place] [address] Outr Resulting Lab, Provider Social History Tobacco [...] Slow Grower SEE NOTE(A) 05/14/2020 12:01 EST [facility] Comment: SOURCE: LYMPH NODE, Lymph Nodes, AFB, ID being done as [facility], AFB, SLOWLY GROWING ?FINAL ??MYCOBACTERIUM AVIUM COMPLEX [...] developed and its performance characteristics determined by [facility] in a manner consistent with CLIA requirements. This test has not been cleared or approved by the U.S. Food and Drug Administration. Test Performed by: [facility] - [address] [address] Pipelines Superintendent: Perez Amaya M.D. Ph.D.; CLIA# [id number] Other 03/15/2020 13:4 4 EDT 04/26/2020 12:34 EST Provider Outr Resulting Lab MICROBIOLOGY - GENERAL ORDERABLES Performing Organization Address [facility]/ZIP Co de Phone Number [address] [address] * (ABNORMAL) CULTURE REFERRED FOR ID, MYCOBACTERIUM (03/15/2020 13:44 EDT) Mycobacteria Culture Referred for ID SEE NOTE(A) 05/02/2020 14:15 EST [facility] Comment: SOURCE: LYMPH NODE, Lymph node, AFB, MTB has not been ruled out CULTURE REFER FOR ID, MYCOBACTERIUM ?FINAL ??MYCOBACTERIUM AVIUM COMPLEX ?? Test Performed by: [place] [id number] Pipelines Superintendent: Perez Amaya M.D. Ph.D.; CLIA# [id number] Organism (organism) 03/15/2020 13:44 EDT 04/26/2020 12:34 EST Provider Outr Resulting Lab MICROBIOLOGY - GENERAL ORDERABLES Performing Organization Address [facility] Co de Phone Number [facility] [address] [place] [address] * (ABNORMAL) AFB CULTURE, OTHER (03/15/2020 13:44 EDT) Organism ID Mycobacterium Avium Complex(A) 05/20/2020 12:05 EST [facility] Comment: Assayed by [facility], [place], [place]. See [id number] for susceptibilities. Tissue AXILLARY LYMPH NODE STRUCTURE / Unknown 03/15/2020 13:44 EDT 03/15/2020 22:56 EDT Provider Outr Resulting Lab MICROBIOLOGY - GENERAL ORDERABLES Performing Organization Address City/[facility]/ZIP Co de Phone Number [facility] [address] [place] [address] documented in this encounter Visit Diagnoses Not on filedocumented in this encounter Care Teams Power Tool Repairer Relationship Specialty Start Date End Date Lynn Solis, SAFETY REPRESENTATIVE [address] [place] [address] PCP - General 05/28/14 09/15/21 Lian Parnell FNP [address] [place] [phone] PCP - General Family Medicine - Primary Care 09/16/21 CHARLENE URIOSTEGUI Pulmonary Disease 01/29/21 documented as of this encounter
--- OUTSIDE RECORDS SUMMARY | 2024-02-03 22:31 | XMS_ITS | Encounter Summary ---
Author Organization [facility] Address [address] [place] [address] Care Team Providers Care Underbaster Name Role Phone Lynn Solis TEAROOM HOSTESS Primary Care Provider [phone] Lian Parnell MORTGAGE PROCESSING CLERK Primary Care Provider [phone] Encounter Details Date Type Department Care Team (Late st Contact Info) Description 03/15/2020 Lab Requisition [facility] Pathology & Laboratory Medicine - [address] [address] Outr Resulting Lab, Provider Encounter for other [...] clonal cell population. See comment. 0 14:52 [facility] Comment The results of flow cytometry show no immunophenotypic evidence of involvement by a clonal lymphoproliferative disorder. Flow cytometry is not sensitive for the detection of large cell lymphoma or Hodgkin lymphoma. Correlation of these findings with morphologic and clinical data is essential; please refer to report [id number] for morphologic details. 0 14:52 [facility] Attestation There was significant resident/fellow involvement in the diagnostic evaluation of this case. By the signature below, the attending physician certifies that they have personally conducted a gross and/or microscopic examination of the described specimens and rendered or confirmed the above diagnosis. 0 14:52 [facility] at 1452 Clinical History Left axillary mass 0 14:52 [facility] Description The specimen consists of [...] and lambda+ subsets are represented. 0 14:52 [facility] Flow Markers CD2, CD3, CD4, CD5, CD7, CD8, CD10, CD11b, CD11c, CD14, CD16, CD19, CD20, CD22, CD23, CD38, CD45, CD56, CD57, FMC7, HLADR, [place], and Lambda. 0 14:52 [facility] FDA Disclaimer This test was developed and its performance characteristics determined by the Department of Pathology and Laboratory Medicine, [facility], [place], [place] It has not been cleared or [...] complexity clinical laboratory testing. 0 14:52 EDT [facility] Resident/Fellow: Lawrence Mayo MD 0 14:52 EDT [facility] Scanned Images 0 14:52 EDT [facility] ZZUNK STRUCTURE OF LYMPH NODE / Unknown 03/15/2020 13:44 EDT 03/16/2020 8:49 EDT Provider Outr Resulting Lab PATHOLOGY OR DERABLES Performing Organization Address [facility] Co de Phone Number [facility] [address] [place] [address] documented in this encounter Visit Diagnoses Diagnosis Encounter for other general examination documented in this encounter Care Teams Underbaster Relationship Specialty Start Date End Date Lynn Solis NP [address] [place] [address] PCP - General 05/28/14 09/15/21 Lian Parnell FNP [address] [place] [address] PCP - General Family Medicine - Primary Care 09/16/21 CHARLENE URIOSTEGUI Pulmonary Disease 01/29/21 documented as of this encounter
--- OUTSIDE RECORDS SUMMARY | 2024-02-03 22:31 | XMS_ITS | Encounter Summary ---
Author Organization [facility] Address [address] [place] [address] Care Team Providers Care Political Scientist Name Role Phone Lynn Solis PRECISION LENS TECHNICIAN Primary Care Provider [phone] Lian Parnell OPERATOR COATING FURNACE Primary Care Provider [phone] Encounter Details Date Type Department Care Team (Late st Contact Info) Description 03/15/2020 Lab Requisition [facility] Pathology & [place] [address] Outr Resulting Lab, Provider Social History Tobacco [...] Acid Fast Bacilli Seen 03/18/2020 15:01 EDT [facility] Tissue AXILLARY LYMPH NODE STRUCTURE / Unknown 03/15/2020 13:44 EDT 03/15/2020 22:57 EDT Provider Outr Resulting Lab MICROBIOLOGY - GENERAL ORDERABLES [facility] [address] [place] [address] documented in this encounter Visit Diagnoses Not on filedocumented in this encounter Care Teams Political Scientist Relationship Specialty Start Date End Date Lynn Solis, PRECISION LENS TECHNICIAN [address] [place] [address] PCP - General 05/28/14 09/15/21 Lian Parnell FNP [address] [place] [phone] PCP - General Family Medicine - Primary Care 09/16/21 CHARLENE URIOSTEGUI Pulmonary Disease 01/29/21 documented as of this encounter
--- OUTSIDE RECORDS SUMMARY | 2024-02-03 22:31 | XMS_ITS | Encounter Summary ---
Author Organization [facility] Address [address] [place] [address] Care Team Providers Care Mosaic Tile Maker Name Role Phone Will Lynnrachel Simmons NP Primary Care Provider [phone] Reason for Visit * Reason Comments Follow-up Encounter Details Date Type Department Care Team (Latest Contact Info) Description 03/13/2020 9:00 EDT Office Visit [facility] Adult Hematology & Oncology [address] [place] [id number] Jaxon Stephens MD [address] [place] [address] [address] [place] [address] Lymphadenopathy (Primary Dx) Social History [...] history. Followed by Dr Donta hernandez in [place]. -Scheduled for a yearly screening CT chest [...] COPD followed by Dr. Mcneil pulmonary at [facility]. Had a CT of the [...] Review: Labs: Imagin10/31/2019: Ultrasound of the [facility]. Left axillary lymph node measuring 3.2 [...] COPD followed by Dr. Mcneil pulmonary at [facility]. Had a CT of thechest December 2018 scheduled for follow-up in December 2019. 3. Tobacco abuse upwards of 2 packs/day since age 8 no radiographic evidence of pulmonary cancer, encouraged him to seek help and try 1 of the smoke cessation programs available through the [facility], we have a program at [facility] that is funded by the [facility] and free for him if he wishes to pursue it. 4. Family history on the mother side multiple cancers but they were all smokers, appears to have several different cancers which he cannot define. From his father's side mostly people from cardiac events. Plan: 1. Referral to Dr. Brooks for excisional biopsy. [place] [facility] Cecilia Dominguez [facility]. Justin TIERNEY. Dr Shelley Stephens MD [facility] documented in this encounter Plan [...] documented as of this encounter Care Teams Mosaic Tile Maker Relationship Specialty Start Date End Date Lynn Solis NP [address] [place] [address] PCP - General 05/28/14 09/15/21 documented as of this encounter
--- OUTSIDE RECORDS SUMMARY | 2024-02-03 22:31 | XMS_ITS | Encounter Summary ---
Author Organization [facility] Address [address] [place] [address] Care Team Providers Care Internist Medical Doctor Md Name Role Phone Lynn Solis NP Primary Care Provider [phone] Reason for Visit * (Routine) - Receiving Office to Obtain Authorization Specialty Diagnoses / Procedures Referred By Mavis rhodes Referred To Contact Procedures CT OUTSIDE IMAGES BODY Unknown, Provider, Referral ID Status Reason Start Date Expiration Date Visits Requested Visits Authorized [id number] Receiving Office to Obtain Authorization 09/11/2020 1 1 Encounter Details Date Type Department Care Team (Latest Contact Info) Description 09/07/2020 Hospital Encounter [facility] Secondary Reads [place] Discharge Disposition: Home [...] on filedocumented in this encounter Care Teams Internist Medical Doctor Md Relationship Specialty Start Date End Date Lynn Solis, MACHINE MOVER [address] [place] [address] PCP - General 05/28/14 09/15/21 documented as of this encounter
--- OUTSIDE RECORDS SUMMARY | 2024-02-03 22:31 | XMS_ITS | Encounter Summary ---
Author Organization [facility] Address [address] [place] [address] Care Team Providers Care Student Outreach Coordinator Name Role Phone Lynn Solis COLLATERAL ANALYST Primary Care Provider [phone] Lian Parnell DIRECTOR SPECIAL EDUCATION Primary Care Provider [phone] Encounter Details Date Type Department Care Team (Late st Contact Info) Description 03/15/2020 Lab Requisition [facility] Pathology & [place] [address] Outr Resulting Lab, Provider Social History Tobacco [...] on filedocumented in this encounter Care Teams Student Outreach Coordinator Relationship Specialty Start Date End Date Lynn Solis, COLLATERAL ANALYST [address] [place] [address] PCP - General 05/28/14 09/15/21 Lian Parnell, DIRECTOR SPECIAL EDUCATION [address] [place] [address] PCP - General Family Medicine - Primary Care 09/16/21 CHARLENE URIOSTEGUI Pulmonary Disease 01/29/21 documented as of this encounter
--- OUTSIDE RECORDS SUMMARY | 2024-02-03 22:31 | XMS_ITS | Encounter Summary ---
Author Organization [facility] Address [address] [place] [address] Care Team Providers Care Treadle Cut Off Saw Operator Name Role Phone Lynn Solis ROLLER MILL OPERATOR Primary Care Provider [phone] Encounter Details Date Type Department Care Team (Late st Contact Info) Description 11/16/2018 Results Only Imaging [facility] [phone] Unknown, Provider, Social History Tobacco Use Types [...] on filedocumented in this encounter Care Teams Treadle Cut Off Saw Operator Relationship Specialty Start Date End Date Lynn Solis ROLLER MILL OPERATOR [address] [place], [place] [id number] PCP - General 05/28/14 09/15/21 documented as of this encounter
--- OUTSIDE RECORDS SUMMARY | 2024-02-03 22:31 | XMS_ITS | Encounter Summary ---
Author Organization [facility] Address [address] [place] [address] Care Team Providers Care Mounter Smoking Pipe Name Role Phone Will Lynn Iris TIERNEY Primary Care Provider [phone] Encounter Details Date Type Department Care Team (Latest Contact Info) Description 06/08/2019 15:00 EST - 06/09/2019 23:59 EST Hospital Encounter [facility] Xray [address] [place], [place] [id number] Discharge Disposition: Home or Self Care Social [...] on filedocumented in this encounter Care Teams Mounter Smoking Pipe Relationship Specialty Start Date End Date Lynn Solis NP [address] [place] [address] PCP - General 05/28/14 09/15/21 documented as of this encounter
--- OUTSIDE RECORDS SUMMARY | 2024-02-03 22:31 | XMS_ITS | Encounter Summary ---
Author Organization [facility] Address [address] [place] [address] Care Team Providers Care Surgical Sales Representative Name Role Phone Lynn Solis SHELL SHOP SUPERVISOR Primary Care Provider [phone] Lian Parnell ENDOSCOPY NURSE Primary Care Provider [phone] Encounter Details Date Type Department Care Team (Late st Contact Info) Description 03/15/2020 Lab Requisition [facility] Pathology & [place] [address] Outr Resulting Lab, Provider Social History Tobacco [...] Organism ID No Growth 03/20/2020 11:02 EDT [facility] Smear No Neutrophils Seen 03/20/2020 11:02 EDT [facility] Smear No bacteria seen 03/20/2020 11:02 EDT [facility] Tissue AXILLARY LYMPH NODE STRUCTURE / Unknown 03/15/2020 13:44 EDT 03/15/2020 22:57 EDT Provider Outr Resulting Lab MICROBIOLOGY - GENERAL ORDERABLES Performing Organization Address City/State/[facility] Co de Phone Number [facility] [address] [place] [address] documented in this encounter Visit Diagnoses Not on filedocumented in this encounter Care Teams Surgical Sales Representative Relationship Specialty Start Date End Date Lynn Solis, SHELL SHOP SUPERVISOR [address] [place] [address] PCP - General 05/28/14 09/15/21 Lian Parnell FNP [address] [place] [phone] PCP - General Family Medicine - Primary Care 09/16/21 CHARLENE URIOSTEGUI Pulmonary Disease 01/29/21 documented as of this encounter
--- OUTSIDE RECORDS SUMMARY | 2024-02-03 22:31 | XMS_ITS | Encounter Summary ---
Author Organization [facility] Address [address] [place] [address] Care Team Providers Care Housekeeper Name Role Phone Lynn Solis CREATIVE SERVICES DESIGNER Primary Care Provider [phone] Lian Parnell CATIA DESIGNER Primary Care Provider [phone] Encounter Details Date Type Department Care Team (Late st Contact Info) Description 06/12/2020 Lab Requisition [facility] Pathology & [place] [address] Outr Resulting Lab, Provider Social History Tobacco [...] 20 - 40 mg/dL 06/13/2020 10:39 EST [facility] Blood VENOUS BLOOD / Unknown 06/12/2020 14:52 EST 06/12/2020 21:46 EST Provider Outr Resulting Lab CHEMISTRY & BLOOD GAS ORDERABLES [facility] [address] [place] [address] documented in this encounter Visit Diagnoses Not on filedocumented in this encounter Care Teams Housekeeper Relationship Specialty Start Date End Date Lynn Solis, NIALL [address] [place] [address] PCP - General 05/28/14 09/15/21 Lian Parnell FNP [address] [place] [phone] PCP - General Family Medicine - Primary Care 09/16/21 CHARLENE URIOSTEGUI Pulmonary Disease 01/29/21 documented as of this encounter
--- OUTSIDE RECORDS SUMMARY | 2024-02-03 22:31 | XMS_ITS | Encounter Summary ---
Author Organization [facility] Address [address] [place] [address] Care Team Providers Care Manager Cable Name Role Phone IssarachellLynn Iris TIERNEY Primary Care Provider [phone] Reason for Referral * Radiology Services (Routine) - New Request Specialty Diagnoses / Procedures Referred By Mavis rhodes Referred To Contact Diagnoses Low back pain, unspecified back pain laterality, unspecified chronicity, unspecified whether sciatica present Procedures L SPINE 4 OR MORE VIEWS Marifer Costello PA-C [address] [place] [phone] Referral ID Status Reason Start Date Expiration Date V isits Requested Visits Authorized [id number] New Request 03/23/2019 1 1 Reason for Visit * Reason Onset Date Comments Back Pain 03/22/2019 Encounter Details Date Type Department Care Team (Late st Contact Info) Description 03/22/2019 Orders Only [facility]ine [facility] [place] [address] [place] [address] Marifer Costello PA-C [address] [place] [phone] Low back pain, unspecified back pain [...] Primary documented in this encounter Care Teams Manager Cable Relationship Specialty Start Date End Date Lynn Solis NP [address] [place] [address] PCP - General 05/28/14 09/15/21 documented as of this encounter
--- OUTSIDE RECORDS SUMMARY | 2024-02-03 22:31 | XMS_ITS | Encounter Summary ---
Author Organization [facility] Address [address] [place] [address] Care Team Providers Care Tooling Mechanic Name Role Phone Lynn Solis Iris MODEL BUILDER Primary Care Provider [phone] Reason for Visit * Reason Comments Back Pain low mid back pain Hip Pain bilateral hip leg pa in Encounter Details Date Type Department Care Team (Latest Contact Info) Description 01/31/2015 9:00 EDT Office Visit [facility] Interventional Pain [address] [place] [address] Dani Tamayo MD [address] [place] [id number] Lumbosacral spondylosis without myelopathy (Primary Dx); Degeneration [...] 01/31/2015 9:31 EDT [facility] [address] [address] Patient Instructions You have had your bilateral [...] * Andrew Lo - 01/31/2015 0857 EDT [facility] Rooming Note Does patient have a Assayer? Yes Is patient NPO? (Solids since midnight [...] Dani Tamayo MD - 01/31/2015 0846 EDT [facility] OP PAIN Procedure Patient Name: Fran Justin Sr. : 1965 Date of Service: 01/31/2015 Chief Complaint: No chief complaint on file. Referring Physician: Marifer Costello Chlorine Plant Operator: Dani Tamayo MD Heat Treat Furnace Operator: none Interval History: Mr. Fran Justin Sr. [...] daily. added in this encounter Care Teams Tooling Mechanic Relationship Specialty Start Date End Date Lynn Solis NP [address] [place] [address] PCP - General 05/28/14 09/15/21 documented as of this encounter
--- OUTSIDE RECORDS SUMMARY | 2024-02-03 22:31 | XMS_ITS | Encounter Summary ---
Author Organization [facility] Address [address] [place] [address] Care Team Providers Care Md Allergy Immunology Name Role Phone Lynn Solis OVERHAULER HELPER Primary Care Provider [phone] Encounter Details Date Type Department Care Team (Late st Contact Info) Description 01/02/2019 Results Only Imaging [facility] [phone] Unknown, Provider, Social History Tobacco Use Types [...] on filedocumented in this encounter Care Teams Md Allergy Immunology Relationship Specialty Start Date End Date Lynn Solis OVERHAULER HELPER [address] [place] [address] PCP - General 05/28/14 09/15/21 documented as of this encounter
--- OUTSIDE RECORDS SUMMARY | 2024-02-03 22:31 | XMS_ITS | Encounter Summary ---
Author Organization [facility] Address [address] [place] [address] Care Team Providers Care Paste Up Copy Camera Operator Name Role Phone Lynn Solis COUNTY EXTENSION AGENT Primary Care Provider [phone] Lian Parnell ELEVATOR STARTER Primary Care Provider [phone] Encounter Details Date Type Department Care Team (Late st Contact Info) Description 2020 Results Only Imaging [facility] Radiology Results [address] [place] [address] Jaxon Stephens MD [address] [place], [place] [address] [address] [place] [phone] Social History Tobacco Use Types Packs/Day Years [...] ? EXAM: PET/CT SCAN/PET/CT SKULL BASE TO LA EX. D/ (1344) ? CLINICAL INFORMATION: ? [...] MD ? CC: ? Transcribed Date/Time: 2020 (9846) ? Briquette Molder: TRACIE ? Printed Date/Time: 2020 (4329) ? PAGE 1 ? Signed Report ? Procedure Note Kody Parry MD - 04/22/2020 EXAM: PET/CT SCAN/PET/CT SKULL BASE TO LA EX. 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
--- OUTSIDE RECORDS SUMMARY | 2024-02-03 22:31 | XMS_ITS | Encounter Summary ---
Author Organization [facility] Address [address] [place] [address] Care Team Providers Care Biztalk Administrator Name Role Phone Lynn Solis SAT TUTOR Primary Care Provider [phone] Lian Parnell TIRE SERVICE SUPERVISOR Primary Care Provider [phone] Encounter Details Date Type Department Care Team (Late st Contact Info) Description 03/15/2020 Lab Requisition [facility] Pathology & [place] [address] Outr Resulting Lab, Provider Social History Tobacco [...] 13:44 EDT) Organism ID Yeast 05/02/2020 10:26 [facility] Comment:Unable to identify. Fungal Smear No Fungi Seen 05/02/2020 10:26 [facility] Tissue AXILLARY LYMPH NODE STRUCTURE / Unknown 03/15/2020 13:44 EDT 03/15/2020 22:57 EDT Provider Outr Resulting Lab MICROBIOLOGY - GENERAL ORDERABLES [facility] [address] [place] [address] documented in this encounter Visit Diagnoses Not on filedocumented in this encounter Care Teams Biztalk Administrator Relationship Specialty Start Date End Date Lynn Solis NP [address] [place] [address] PCP - General 05/28/14 09/15/21 Lian Parnell FNP [address] [place] [address] PCP - General Family Medicine - Primary Care 09/16/21 CHARLENE URIOSTEGUI Pulmonary Disease 01/29/21 documented as of this encounter
--- OUTSIDE RECORDS SUMMARY | 2024-02-03 22:31 | XMS_ITS | Encounter Summary ---
Author Organization [facility] Address [address] [place] [address] Care Team Providers Care Certified Pathology Assistant Name Role Phone Lynn Solis CATTLE SHIPPER Primary Care Provider [phone] Lian Parnell LOCAL SUPERINTENDENT Primary Care Provider [phone] Encounter Details Date Type Department Care Team (Late st Contact Info) Description 07/11/2020 Lab Requisition [facility] Pathology & [place] [address] Outr Resulting Lab, Provider Social History Tobacco [...] 35 - 242 mg/dL 07/12/2020 10:02 EST [facility] Blood VENOUS BLOOD / Unknown 07/10/2020 16:17 EST 07/11/2020 22:37 EST Provider Outr Resulting Lab CHEMISTRY & BLOOD GAS ORDERABLES [facility] [address] [place] [address] documented in this encounter Visit Diagnoses Not on filedocumented in this encounter Care Teams Certified Pathology Assistant Relationship Specialty Start Date End Date Lynn Solis, CATTLE SHIPPER [address] [place] [address] PCP - General 05/28/14 09/15/21 Lian Parnell, LOCAL SUPERINTENDENT [address] [place] [phone] PCP - General Family Medicine - Primary Care 09/16/21 CHARLENE URIOSTEGUI Pulmonary Disease 01/29/21 documented as of this encounter
--- OUTSIDE RECORDS SUMMARY | 2024-02-03 22:31 | XMS_ITS | Encounter Summary ---
Author Organization [facility] Address [address] [place] [address] Care Team Providers Care Raise Miner Name Role Phone Lynn Solis WEIGHT CONTROL LECTURER Primary Care Provider [phone] Lian Parnell BAR MACHINE OPERATOR PRODUCTION Primary Care Provider [phone] Encounter Details Date Type Department Care Team (Late st Contact Info) Description 07/11/2020 Lab Requisition [facility] Pathology & [place] [address] Outr Resulting Lab, Provider Social History Tobacco [...] IgG 647 610-1,616 mg/dL 07/12/2020 10:00 EST [facility] Blood VENOUS BLOOD / Unknown 07/10/2020 16:17 EST 07/11/2020 22:37 EST Provider Outr Resulting Lab CHEMISTRY & BLOOD GAS ORDERABLES [facility] [address] [place] [address] documented in this encounter Visit Diagnoses Not on filedocumented in this encounter Care Teams Raise Miner Relationship Specialty Start Date End Date Lynn Solis, WEIGHT CONTROL LECTURER [address] [place] [address] PCP - General 05/28/14 09/15/21 Lian Parnell FNP [address] [place] [phone] PCP - General Family Medicine - Primary Care 09/16/21 CHARLENE URIOSTEGUI Pulmonary Disease 01/29/21 documented as of this encounter
--- OUTSIDE RECORDS SUMMARY | 2024-02-03 22:31 | XMS_ITS | Encounter Summary ---
Author Organization [facility] Address [address] [place] [address] Care Team Providers Care Barber Or Beauty Shop Manager Name Role Phone Lynn Solis NP Primary Care Provider [phone] Reason for Visit * Reason Comments Follow-up Encounter Details Date Type Department Care Team (Late st Contact Info) Description 03/27/2020 12:30 EDT Office Visit [facility] Adult Hematology & Oncology [address] [place] [phone] Jaxon Stephens MD [address] [place] [address] [address] [place] [address] Lymphocyte-rich Hodgkin lymphoma of lymph [...] this visit is written note copy to [facility].. For patients, please refer to guidance in Selerity on how to locate information. Generally this [...] history. Followed by Dr Donta hernandez in [place]. -Scheduled for a yearly screening CT chest [...] COPD followed by Dr. Mcneil pulmonary at [facility]. Had a CT of the chest [...] Data Review: Labs: Imagin10/31/2019: Ultrasound of the [facility]. Left axillary lymph node measuring 3.2 x [...] COPD followed by Dr. Mcneil pulmonary at [facility]. Had a CT of thechest December 2018 scheduled for follow-up in December 2019. 3. Tobacco abuse upwards of 2 packs/day since age 8 no radiographic evidence of pulmonary cancer, encouraged him to seek help and try 1 of the smoke cessation programs available through the [facility], we have a program at [facility] that is funded by the [facility] and free for him if he wishes to pursue it. Jaxon Stephens MD [facility] documented in this encounter Plan of [...] 04/27/2022 added in this encounter Care Teams Barber Or Beauty Shop Manager Relationship Specialty Start Date End Date Lynn Solis NP [address] [place] [address] PCP - General 05/28/14 09/15/21 documented as of this encounter
--- OUTSIDE RECORDS SUMMARY | 2024-02-03 22:31 | XMS_ITS | Encounter Summary ---
Author Organization [facility] Address [address] [place] [address] Care Team Providers Care Manager Basketball Name Role Phone Lynn Solis GEOPHYSICAL LABORATORY CHIEF Primary Care Provider [phone] Lian Parnell GROUND SUPPORT EQUIPMENT MECHANIC Primary Care Provider [phone] Encounter Details Date Type Department Care Team (Late st Contact Info) Description 05/02/2019 Lab Requisition [facility] Pathology & Laboratory Medicine - [address] [address] Unknown, Provider, Social History Tobacco Use Types [...] 211 - 911 pg/mL 05/03/2019 12:[address] [facility] Blood VENOUS BLOOD / Unknown 05/02/2019 11:49 EST 05/02/2019 22:17 EST Provider Unknown CHEMISTRY & BLOOD GA S ORDERABLES Performing Organization Address City/State/[facility] Co de Phone Number [facility] [address] [place] [address] documented in this encounter Visit Diagnoses Not on filedocumented in this encounter Care Teams Manager Basketball Relationship Specialty Start Date End Date Lynn Solis NP [address] [place] [address] PCP - General 05/28/14 09/15/21 Lian Parnell, GROUND SUPPORT EQUIPMENT MECHANIC [address] [place] [address] PCP - General Family Medicine - Primary Care 09/16/21 CHARLENE URIOSTEGUI Pulmonary Disease 01/29/21 documented as of this encounter
--- OUTSIDE RECORDS SUMMARY | 2024-02-03 22:31 | XMS_ITS | Encounter Summary ---
Author Organization [facility] Address [address] [place] [address] Care Team Providers Care Artificial Candy Maker Name Role Phone Lynn Solis NP Primary Care Provider Reason for Visit * Reason Onset Date Comments Appointment Related 03/21/2020 Encounter Details Date Type Department Care Team (Late st Contact Info) Description 03/21/2020 Telephone [facility] Adult Hematology & Oncology [address] [place] [phone] Jaxon Stephens MD [address] [place] [address] [address] [place] [phone] Appointment Related Social History Tobacco Use Types [...] patient girlfriend to give PET details to. [phone] * Telephone Encounter - Jaxon Stephens MD - 03/21/2020 2930 EDT New diagnosis of classic Hodgkin lymphoma with lymphocyte rich. Please call the patient and schedule for a PET scan, and labs next Wednesday here at [facility]. Santa Moon from [facility] will be in contact with the patient to get an echocardiogram at [facility] and a follow-up visit with me next Wednesday afternoon at 4:00. I have completed the orders for this Wednesday. 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
--- OUTSIDE RECORDS SUMMARY | 2024-02-03 22:31 | XMS_ITS | Encounter Summary ---
Author Organization [facility] Address [address] [place] [address] Care Team Providers Care Furniture Rental Consultant Name Role Phone WillLynn Iris TIERNEY Primary Care Provider [phone] Reason for Visit * Reason Comments Back Pain * Referral (Routine/Next Available) - Specialty Report Received Specialty Diagnoses / Procedures Referred By Mavis rhodes Referred To Contact Pain Medicine Diagnoses Low back pain radiating to both legs Marifer Costello PA-C [address] [facility] [place] [address] [facility] [address] [place] [address] Referral ID Status Reason Start Date Expiration Date Visits Requested Visits Authorized [id number] Specialty Report Received Specialty Services Required 9 1 1 Encounter Details Date Type Department Care Team (Latest Contact Info) Description 06/08/2019 15:00 EST Procedure visit [facility] Interventional Pain [address] [place] [address] John Bucio, DO [address] [facility] [address] [place] [address] Lumbar spondylosis (Primary Dx); Facet arthropathy, lumbar [...] 06/08/2019 15:00 EST [facility] [address] [address] Patient Instructions You have had your bilateral [...] Jane Velasco MA - 06/08/2019 1500 EST [facility] Rooming Note Does patient have a Deputy Clerk Of Superior Court? Yes Is patient NPO? (Solids since midnight [...] of Service: 06/08/2019 Requesting provider: Marifer Costello Space Control Supervisor: John Bucio DO Marketing Production Coordinator: Lelo Milner DO Procedure: Therapeutic lumbar facet [...] reviewed with the patient, provider, nurse/MA, and mobile sales technician in the room prior to local [...] mg documented in this encounter Care Teams Furniture Rental Consultant Relationship Specialty Start Date End Date Lynn Solis, CLOTH FOLDER MACHINE [address] [place] [address] PCP - General 05/28/14 09/15/21 documented as of this encounter
--- OUTSIDE RECORDS SUMMARY | 2024-02-03 22:31 | XMS_ITS | Encounter Summary ---
Author Organization [facility] Address [address] [place] [address] Care Team Providers Care Clerical Specialist Name Role Phone Lynn Solis NP Primary Care Provider [phone] Reason for Visit * Reason Onset Date Comments Other 07/19/2020 Encounter Details Date Type Department Care Team (Late st Contact Info) Description 07/19/2020 Telephone [facility] Adult Hematology & Oncology [address] [place] [phone] Jaxon Stephens MD [address] [place] [address] [address] [place] [phone] Other Social History Tobacco Use Types Packs/Day [...] 07/19/2020 1056 EST Marko Naik MD - [facility] * Telephone Encounter - Veronica Guzmán - 07/19/2020 1038 EST DO, your 07/10/20 office note states to CC Dr Sofia. What is this providers first name? Thank you documented in this encounter Plan of Treatment Not on file documented as of this encounter Visit Diagnoses Not on filedocumented in this encounter Care Teams Clerical Specialist Relationship Specialty Start Date End Date Lynn Solis NP [address] [place] [address] PCP - General 05/28/14 09/15/21 documented as of this encounter
--- OUTSIDE RECORDS SUMMARY | 2024-02-03 22:31 | XMS_ITS | Encounter Summary ---
Author Organization [facility] Address [address] [place] [address] Care Team Providers Care Finisher Machine Name Role Phone Lynn Solis REGIONAL CONTROLLER Primary Care Provider [phone] Lian Parnell ON SITE MANAGER Primary Care Provider [phone] Encounter Details Date Type Department Care Team (Late st Contact Info) Description 03/15/2020 Lab Requisition [facility] Pathology & Laboratory Medicine - [facility] [address] [place] [address] Mc Brooks MD [address] [place] [id number] Encounter for other general examination Social History [...] lymphocyte-rich subtype. See comment. 03/20/2020 15:33 EDT [facility] Diagnosis Comment Excisional biopsy shows a lymph node with effaced clary architecture and a vaguely nodular distribution of predominately small lymphocytes. Scattered amongst the small lymphocytes are large and occasionally binucleated cells with irregular nuclear contours, vesicular chromatin, and large prominent nucleoli, consistent with Hodgkin/Anthony-Forman brooks cells. By immunohistochemist ry, these cells are positive for CD15, CD30, and dimly positive for Heth-5, while they are negative for CD45, and CD20. This immunophenotype, taken together with the morphologic details, are diagnostic of classic Hodgkin lymphoma, lymphocyte-rich subtype. Concurrent flow cytometric analysis ([id number]) shows no immunophenotypic evidence of a clonal cell population. Immunoperoxidase stains were performed on this case to further characterize the lesion. ANTIBODY(CLONE)(BL OCK):RESULT CD45 (LCA) (X16/99, Leica) (A1): Negative in large cells of interest; diffusely positive in background small lymphocytes CD20 (L26, [place]) (A1): Negative in cells of interest; positive in background B-cells PAX-5 (1EW, Leica): Variable but predominantly weak nuclear positivity in large cells of interest CD3 (SP7, [employer]) (A1): Positive in background T-cells; shows T-cell cuffing around cells of interest CD15 (LeuM1) (MMA, [place]) (A1): Variable, but predominantly weak positivity in cells of interest CD30 (Zachery-H2, [place]) (A1): Positive in cells of interest NOTE: [...] performance characteristics have been determined by [facility] and/or by the referring laboratory. The positive [...] high complexity clinical laboratory testing. 03/20/2020 15:33 [facility] Attestation There was significant resident/fellow involvement in the diagnostic evaluation of this case. By the signature below, the attending physician certifies that they have personally conducted a gross and/or microscopic examination of the described specimens and rendered or confirmed the above diagnosis. Kartik Garner MD 03/20/2020 15:33 [facility] at 1533 Clinical History Lt axillary mass 03/20/2020 15:33 [facility] Gross Description A. Received fresh labelled with proper patient identification (initials W, R) and left axillary lymph node is a single lymph node (4.5 x 4.2 x 1.3 cm). The node is serially sectioned and a scrape preparation is performed for informational purposes. Boat Hoist Operator Helper tissue is placed in RPMI for flow cytometry. Touch imprints are performed for hematopathology. Boat Hoist Operator Helper tissue is submitted for cytogenetics. Less than 50% of the specimen is submitted in A1-A3. MADELAINE CALDWELL(ASCP) 03/18/2020 9:58 03/20/2020 15:33 [facility] Resident/Stevie w: Luis Justice MD 03/20/2020 15:33 [facility] Performing Lab [facility] 15:33 [facility] Scanned Images 03/20/2020 15:33 [facility] Tissue AXILLARY LYMPH NODE STRUCTURE / Unknown 03/15/2020 13:15 EDT 03/15/2020 22:18 EDT Mc Brooks MD PATHOLOGY ORDER JADYN [facility] [address] [place] [address] documented in this encounter Visit Diagnoses Diagnosis Encounter for other general examination documented in this encounter Care Teams Finisher Machine Relationship Specialty Start Date End Date Lynn Solis, REGIONAL CONTROLLER [address] [place] [address] PCP - General 05/28/14 09/15/21 Lian Parnell FNP [address] [place] [phone] PCP - General Family Medicine - Primary Care 09/16/21 CHARLENE URIOSTEGUI Pulmonary Disease 01/29/21 documented as of this encounter
--- OUTSIDE RECORDS SUMMARY | 2024-02-03 22:31 | XMS_ITS | Encounter Summary ---
Author Organization [facility] Address [address] [place] [address] Care Team Providers Care Advanced Clinical Specialist Name Role Phone Lynn Solis Iris HORSEBACK EXCAVATOR Primary Care Provider [phone] Reason for Visit * Reason Onset Date Comments Results 02/01/2015 Encounter Details Date Type Department Care Team (Late st Contact Info) Description 02/01/2015 Telephone [facility] - Interventional Pain [address] [place], [place] [phone] Dani Tamayo MD [facility] [place] [phone] Results Social History Tobacco Use Types Packs/Day [...] Miscellaneous Notes * Telephone Encounter - Julia Dobbins - 02/01/2015 1007 EDT Procedure end [...] Encounter - Jordon Lan RN - 02/01/2015 0981 EDT Post-MBB Pain Relief: Hours of relief: [...] Telephone Encounter - Marylou Pool - 02/01/2015 0908 EDT Procedure end time:___100am Pain relief start [...] on filedocumented in this encounter Care Teams Advanced Clinical Specialist Relationship Specialty Start Date End Date Lynn Solis NP 4 [facility] [place] [address] PCP - General 05/28/14 09/15/21 documented as of this encounter
--- OUTSIDE RECORDS SUMMARY | 2024-02-03 22:31 | XMS_ITS | Encounter Summary ---
Author Organization [facility] Address [address] [place] [address] Care Team Providers Care Flat Optical Element Maker Name Role Phone Lynn Solis JOURNEYMAN WELDER Primary Care Provider [phone] Lian Parnell ADMINISTRATIVE EXECUTIVE Primary Care Provider [phone] Encounter Details Date Type Department Care Team (Late st Contact Info) Description 06/24/2020 Lab Requisition [facility] Pathology & [place] [address] Outr Resulting Lab, Provider Social History Tobacco [...] ID No Anaerobes Isolated 06/28/2020 7:48 EST [facility] Tissue ENTIRE UPPER LIMB / Unknown 06/23/2020 14:23 EST 06/24/2020 21:39 EST Provider Outr Resulting Lab MICROBIOLOGY - GENERAL ORDERABLES Performing Organization Address City/State/[facility] Co de Phone Number [facility] [address] [place] [address] documented in this encounter Visit Diagnoses Not on filedocumented in this encounter Care Teams Flat Optical Element Maker Relationship Specialty Start Date End Date Lynn Solis, JOURNEYMAN WELDER [address] [place] [address] PCP - General 05/28/14 09/15/21 Lian Parnell FNP [address] [place] [address] PCP - General Family Medicine - Primary Care 09/16/21 CHARLENE URIOSTEGUI Pulmonary Disease 01/29/21 documented as of this encounter
--- OUTSIDE RECORDS SUMMARY | 2024-02-03 22:32 | XMS_ITS | Encounter Summary ---
Author Organization [facility] Address [address] [place] [address] Care Team Providers Care Metal Sponge Making Machine Operator Name Role Phone IssaalbaLynn brooks Iris REAL ESTATE INTERNSHIP Primary Care Provider [phone] Reason for Visit * Reason Onset Date Comments Appointment Related 08/15/2014 Encounter Details Date Type Department Care Team (Late st Contact Info) Description 08/15/2014 Telephone [facility] Spine Program - [address] [place] [address] Marifer Costello PA-C [address] [facility] [place] [address] Appointment Related Social History Tobacco [...] out that he had shown up at [facility] on the day of his scan when he should have been at that main campus. I gave him the phone number to reschedule and clarified that he needed to go [facility] in [place] for this procedure. He expressed understanding and will be calling [facility]. documented in this encounter Plan of Treatment Not on file documented as of this encounter Visit Diagnoses Not on filedocumented in this encounter Care Teams Metal Sponge Making Machine Operator Relationship Specialty Start Date End Date Lynn Solis, NIALL [address] [place] [address] PCP - General 05/28/14 09/15/21 documented as of this encounter
--- OUTSIDE RECORDS SUMMARY | 2024-02-03 22:32 | XMS_ITS | Encounter Summary ---
Author Organization [facility] Address [address] [place] [address] Care Team Providers Care Auto Air Conditioning Apprentice Name Role Phone IssaalbaLynn brooks Iris COVER MAT MACHINE OPERATOR Primary Care Provider [phone] Reason for Visit * Reason Onset Date Comments Appointment Related 05/30/2014 Encounter Details Date Type Department Care Team (Late st Contact Info) Description 05/30/[address] [facility] Spine Program - [place] [address] [place] [address] Marifer Costello PA-C [address] [employer] [place] [address] Appointment Related Social History Tobacco [...] MRI Wednesday06/22/14 at 4:30 pm at [address] [employer] and f/u with Antoninokeya Wednesday06/25/14 at 9:15 am at [address] [employer] Provided phone numbers to reschedule if necessary. documented in this encounter Plan of Treatment Not on file documented as of this encounter Visit Diagnoses Not on filedocumented in this encounter Care Teams Auto Air Conditioning Apprentice Relationship Specialty Start Date End Date Lynn Solis, COVER MAT MACHINE OPERATOR [address] [place] [address] PCP - General 05/28/14 09/15/21 documented as of this encounter
--- OUTSIDE RECORDS SUMMARY | 2024-02-03 22:32 | XMS_ITS | Encounter Summary ---
Author Organization [facility] Address [address] [place] [address] Care Team Providers Care Aerophysics Engineer Name Role Phone Reji Merritt MD Primary Care Provider [phone] Reason for Visit * Reason Comments Act 1 Clearance pt reports he is her e for ACT 1 clearance for ETOH abuse. Pt reports last drank 3 hrs ago Encounter Details Date Type Department Care Team (Late st Contact Info) Description 09/25/2010 14:09 EDT - 09/25/2010 16:05 EDT Emergency [facility] Emergency Department - [facility] [address] [place] [address] Lelo Mandujano PA-C [address] [place] [address] Emergency, MD Franky Alcohol addiction ([facility]) ([facility]) Discharge Disposition: Home or Self Care Social [...] * ACUTE ALCOHOL INTOXICATION: AFTER YOUR VISIT (VIETNAMESE) documented in this encounter Medications at Time [...] Means Destination Comment s Home or Self Detention Pt ambulated out of dept in [place]. [...] this encounter Visit Diagnoses Diagnosis Alcohol addiction ([facility]) Other and unspecified alcohol dependence, unspecified drinking [...] RN) documented in this encounter Care Teams Aerophysics Engineer Relationship Specialty Start Date End Date Reji Merritt MD [address] [place] [address] PCP - General 09/25/10 09/25/10 documented as of this encounter
--- OUTSIDE RECORDS SUMMARY | 2024-02-03 22:32 | XMS_ITS | Encounter Summary ---
Author Organization [facility] Address [address] [place] [address] Care Team Providers Care Drywall Contractor Name Role Phone Lynn Solis Iris GEODESIST Primary Care Provider [phone] Reason for Visit * Reason Onset Date Comments Results 07/05/2014 Encounter Details Date Type Department Care Team (Late st Contact Info) Description 07/05/2014 Telephone [facility] Interventional Pain [address] [place] [address] Dani Tamayo MD [facility] [place] [phone] Results Social History Tobacco Use Types Packs/Day [...] 2/3 diagnostic lumbar facet 4-5, 5-s1 Provider: Zeferino/oMnica Hours of relief: 20 + hours % [...] on filedocumented in this encounter Care Teams Drywall Contractor Relationship Specialty Start Date End Date Lynn Solis NP [address] [place] [address] PCP - General 05/28/14 09/15/21 documented as of this encounter
--- OUTSIDE RECORDS SUMMARY | 2024-02-03 22:32 | XMS_ITS | Encounter Summary ---
Author Organization [facility] Address [address] [place] [address] Care Team Providers Care Job Site Superintendent Name Role Phone Mitchell Del Rosario MD Primary Care Provider Mitchell Bragg MD Primary Care Provider Braeden johnson Encounter Details Date Type Department Care Team (Late st Contact Info) Description 05/21/2008 Office Visit [facility] [address] [place] [address] Parrish Jackson, PAJessiC [address] [place] [address] [place] [phone] Social History Tobacco Use Types Packs/Day Years [...] Patient verbalized understanding. Written instructions provided in [place] Islander. The patient left the Emergency Department ambulatory. --2047 Ranjana Arvizu R.N.. Marisel Arvizu R.N. Locked/Released at 05/21/2008 21:23 by Marisel Jorge R.N. documented in this encounter Plan of Treatment Not on file documented as of this encounter Visit Diagnoses Not on filedocumented in this encounter Care Teams Job Site Superintendent Relationship Specialty Start Date End Date Mitchell Del Rosario MD PCP - General 01/08/09 09/24/10 Mitchell Del Rosario MD PCP - General 11/05/08 01/07/09 documented as of this encounter
--- OUTSIDE RECORDS SUMMARY | 2024-02-03 22:32 | XMS_ITS | Encounter Summary ---
Author Organization [facility] Address [address] [place] [address] Care Team Providers Care Community Service Coordinator Name Role Phone IssarachellLynn Iris TIERNEY Primary Care Provider [phone] Encounter Details Date Type Department Care Team (Late st Contact Info) Description 08/20/2014 8:19 EDT - 08/20/2014 23:59 EDT Hospital Encounter [address] [address] Marifer Costello PA-C [address] [place] [address] Discharge Disposition: Auto Discharge Social [...] ??08/20/2014 12:22 PM Signs and Symptoms/Comments: ?? 724.7-Xkginwp-XSX-9-CM; Low back pain radiating to both legs. Technique: Unm-lqq-unl-half hours after the IV injection of 19 [...] SPECT 08/20/2014 12:22 PM Signs and Symptoms/Comments: 724.7-Ilwikmz-NTC-9-CM; Low back pain radiating to both legs. Technique: Hzt-vvc-crn-half hours after the IV injection of 19 [...] filedocumented in this encounter Care Teams Community Service Coordinator Relationship Specialty Start Date End Date Lynn Solis, PLANT CYTOLOGIST [address] [place] [address] PCP - General 05/28/14 09/15/21 documented as of this encounter
--- OUTSIDE RECORDS SUMMARY | 2024-02-03 22:32 | XMS_ITS | Encounter Summary ---
Author Organization [facility] Address [address] [place] [address] Care Team Providers Care Machine Zipper Trimmer Name Role Phone Jaxon Napier MD Primary Care Provider [phone] Encounter Details Date Type Department Care Team (Late st Contact Info) Description 04/11/2014 Orders Only [facility] Spine Program - [address] [place] [address] Marifer Costello PA-C 192 [facility] [place] [address] Lumbago (Primary Dx) Social History [...] Primary documented in this encounter Care Teams Machine Zipper Trimmer Relationship Specialty Start Date End Date Jaxon Napier MD [address] [address]301 PCP - General 05/01/13 05/27/14 documented as of this encounter
--- OUTSIDE RECORDS SUMMARY | 2024-02-03 22:32 | XMS_ITS | Encounter Summary ---
Author Organization [facility] Address [address] [place] [address] Care Team Providers Care Project Intern Name Role Phone IssaalbaLynn brooks Iris APPRAISAL ANALYST Primary Care Provider [phone] Reason for Visit * Reason Onset Date Comments Appointment Related 08/01/2014 Encounter Details Date Type Department Care Team (Late st Contact Info) Description 08/01/2014 Telephone [facility] Spine Program - [address] [place] [address] Marifer Costello PA-C [address] [employer] [facility] [place] [address] Appointment Related Social History Tobacco [...] on filedocumented in this encounter Care Teams Project Intern Relationship Specialty Start Date End Date Lynn Solis NP [address] [place] [address] PCP - General 05/28/14 09/15/21 documented as of this encounter
--- OUTSIDE RECORDS SUMMARY | 2024-02-03 22:32 | XMS_ITS | Encounter Summary ---
Author Organization [facility] Address [address] [place] [address] Care Team Providers Care Molding Utility Worker Name Role Phone Jaxon Napier MD Primary Care Provider [phone] Reason for Visit * Reason Comments Other Encounter Details Date Type Department Care Team (Late st Contact Info) Description 01/15/2014 [facility] Adult Neurology - [facility] [address] [place] [address] Sawyer Bolivar MD [address] [place] [address] Other Social History Tobacco Use Types Packs/Day [...] on filedocumented in this encounter Care Teams Molding Utility Worker Relationship Specialty Start Date End Date Jaxon Napier MD [address] [address] PCP - General 05/01/13 05/27/14 documented as of this encounter
--- OUTSIDE RECORDS SUMMARY | 2024-02-03 22:32 | XMS_ITS | Encounter Summary ---
Author Organization [facility] Address [address] [place] [address] Care Team Providers Care Computer Network And Systems Engineer Name Role Phone IssaalbaLynn brooks Iris SKI GUIDE Primary Care Provider [phone] Reason for Visit * Reason Onset Date Comments Medication Management 09/20/2014 Encounter Details Date Type Department Care Team (Late st Contact Info) Description 09/20/2014 Telephone [facility] Spine Program - [address] [place] [address] Marifer Costello PA-C [address] [facility] [place] [address] Medication Management Social History Tobacco [...] on filedocumented in this encounter Care Teams Computer Network And Systems Engineer Relationship Specialty Start Date End Date Lynn Solis, SKI GUIDE [address] [place] [address] PCP - General 05/28/14 09/15/21 documented as of this encounter
--- OUTSIDE RECORDS SUMMARY | 2024-02-03 22:32 | XMS_ITS | Encounter Summary ---
Author Organization [facility] Address [address] [place] [address] Care Team Providers Care Water Rights Specialist Name Role Phone Lynn Solis HARDBOARD FACTORY WORKER Primary Care Provider [phone] Encounter Details Date Type Department Care Team (Late st Contact Info) Description 07/17/2014 Orders Only [facility] Spine Program - [address] [place] [address] Marifer Costello PA-C [address] [facility] [address] Low back pain radiating to [...] Lumbago documented in this encounter Care Teams Water Rights Specialist Relationship Specialty Start Date End Date Lynn Solis, HARDBOARD FACTORY WORKER [address] [place] [address] PCP - General 05/28/14 09/15/21 documented as of this encounter
--- OUTSIDE RECORDS SUMMARY | 2024-02-03 22:32 | XMS_ITS | Encounter Summary ---
Author Organization [facility] Address [address] [place] [address] Care Team Providers Care String Winding Machine Operator Name Role Phone Jaxon Napier MD Primary Care Provider [phone] Reason for Visit * Reason Onset Date Comments Medication Management 01/01/2014 Encounter Details Date Type Department Care Team (Late st Contact Info) Description 01/01/2014 Telephone [facility] Neurophysiology [place] [address] Rula Theodore RN [address] [place] [address] Medication Management Social History Tobacco Use Types [...] Miscellaneous Notes * Telephone Encounter - Rula Tehodore RN - 01/05/2014 1338 EDT I called and left detailed message for pt. I asked that he call if questions * Telephone Encounter - Ash Almendarez MD - 01/05/2014 1256 EDT He needs to talk to PCP for RX. * Telephone Encounter - Rula Theodore RN - 01/01/2014 6058 EDT Reason for call: Pharmacy sent e [...] on filedocumented in this encounter Care Teams String Winding Machine Operator Relationship Specialty Start Date End Date Jaxon Napier MD [address] [address] PCP - General 05/01/13 05/27/14 documented as of this encounter
--- OUTSIDE RECORDS SUMMARY | 2024-02-03 22:32 | XMS_ITS | Encounter Summary ---
Author Organization [facility] Address [address] [place] [address] Care Team Providers Care Ship Propeller Finisher Name Role Phone Unknown, Provider Primary Care Provider [phone] Reason for Visit * Reason Comments Medical Evaluation pt sent here from [facility] 1 for med clearance. pt detoxing from ETOH. last drink yesterday. pt very tremulous. c/o abd pain and nausea. pt seen here yesterday and has been taking valium orally which is not helping Encounter Details Date Type Department Care Team (Late st Contact Info) Description 09/26/2010 13:08 EDT - 09/26/2010 16:33 EDT Emergency [facility] Emergency Department - [address] [address] Magali Kothari PA-C [address] [facility] Level [address] [place] [phone] Jabier Rosales PA [address] [address] Emergency, MD Franky Alcoholism /alcohol abuse ([facility]); Alcohol withdrawal ([facility]) Discharge Disposition: Home or Self Care [...] ABOUT ALCOHOL ABUSE AND ADDICTION IN TEENS (KYRGYZ) * ALCOHOL DETOXIFICATION AND WITHDRAWAL: AFTER YOUR VISIT (KYRGYZ) documented in this encounter Medications at Time [...] from IV site at time of insertion. Hugo and purple tops to lab. * Magali [...] BLOOD GA S ORDERABLES Performing Organization Address [facility] Co de Phone Number [facility] [address] [place] [address] * LIPASE (09/26/2010 13:45 EDT) Lipase 118 0 - 250 U/L [facility] Blood specimen (specimen) 09/26/2010 13:45 EDT 09/26/2010 13:56 EDT Magali BURKETT-C CHEMISTRY & BLOOD GA S ORDERABLES Performing Organization Address [facility] de Phone Number [facility] [address] [place] [address] * LIVER FUNCTION TESTS (09/26/2010 13:45 EDT) [...] BLOOD GA S ORDERABLES Performing Organization Address [facility] Co de Phone Number [facility] [address] [place] [address] * CREATININE (09/26/2010 13:45 EDT) Creatinine 0.80 0.7 - 1.5 mg/dl [facility] GFR, Calculated >60 ml/min/1.7 3m2 [facility] Blood specimen (specimen) 09/26/2010 13:45 EDT 09/26/2010 13:56 EDT Magali Kothari PA-C CHEMISTRY & BLOOD GA S ORDERABLES Performing Organization Address [facility] de Phone Number [facility] [address] [place] [address] * (ABNORMAL) BUN (09/26/2010 13:45 EDT) BUN 9(L) 10 - 26 mg/dl [facility] Blood specimen (specimen) 09/26/2010 13:45 EDT 09/26/2010 13:56 EDT Magali Kothari PA-C CHEMISTRY & BLOOD GA S ORDERABLES Performing Organization Address [facility] Phone Number [facility] [address] [place] [address] * ELECTROLYTES (09/26/2010 13:45 EDT) Sodium 140 [...] BLOOD GA S ORDERABLES Performing Organization Address [facility] de Phone Number [facility] [address] [place] [address] * (ABNORMAL) HEMAGRAM AND DIFFERENTIAL (09/26/2010 13:45 [...] PROBE ORDERABLES [facility] [address] [place] [address] documented in this encounter Visit Diagnoses Diagnosis [...] RN) documented in this encounter Care Teams Ship Propeller Finisher Relationship Specialty Start Date End Date Unknown, Provider, PCP - General 09/26/10 09/27/10 documented as of this encounter
--- OUTSIDE RECORDS SUMMARY | 2024-02-03 22:32 | XMS_ITS | Encounter Summary ---
Author Organization [facility] Address [address] [place] [address] Care Team Providers Care Underwriting Operations Manager Name Role Phone Unavailable Primary Care Provider Unavailabl e Encounter Details Date Type Department Care Team (Latest Contact Info) Description 05/21/2008 20:09 EST Hospital Encounter [facility] [address] [place] [address] Emergency, Default, MD Discharge Disposition: Home or [...]
--- OUTSIDE RECORDS SUMMARY | 2024-02-03 22:32 | XMS_ITS | Encounter Summary ---
Author Organization [facility] Address [address] [place] [address] Care Team Providers Care Tableau Report Developer Name Role Phone IssaalbaLynn brooks Iris TIERNEY Primary Care Provider [phone] Reason for Visit * Reason Comments Hip Pain bilateral L>R Back Pain mid back radiates to hips. * Consult (Routine) - Specialty Report Received Specialty Diagnoses / Procedures Referred By Mavis rhodes Referred To Contact Pain Medicine Diagnoses Low back pain radiating to both legs Marifer Costello PA-C [address] [facility] [place] [address] [facility] [address] [place] [address] Referral ID Status Reason Start Date Expiration Date Visits Requested Visits Authorized [id number] Specialty Report Received Specialty Services Required 06/25/2014 1 1 Encounter Details Date Type Department Care Team (Latest Contact Info) Description 07/03/2014 14:[address] [facility] Interventional Pain [address] [place] [address] Sawyer Anderson, DO [address] [facility] [address] [place] [address] Dani Tamayo MD [address] [place] [phone] Lumbosacral spondylosis without myelopathy (Primary Dx); Degeneration [...] 14:43 EST [facility] [place] [phone] Patient Instructions Today please stay busy/active doing [...] Notes * Julia Woodruff RN - 07/03/2014 1420 EST [facility] Rooming Note Does patient have a Dredge Mechanic? Yes (RCT) Is patient NPO? (Solids since [...] Other: * David Mcgarry DO - 07/03/2014 2175 EST Patient Name: Fran Justin . : 1965 Date of Service: 07/03/2014 Warp Picker: Sawyer Anderson DO Abrasive Grader: David Mcgarry DO Procedure: Diagnostic lumbar facet [...] mg documented in this encounter Care Teams Tableau Report Developer Relationship Specialty Start Date End Date Lynn Solis NP [address] [place] [address] PCP - General 05/28/14 09/15/21 documented as of this encounter
--- OUTSIDE RECORDS SUMMARY | 2024-02-03 22:32 | XMS_ITS | Encounter Summary ---
Author Organization [facility] Address [address] [place] [address] Care Team Providers Care Asset Manager Name Role Phone Brian Aleman MD Primary Care Provider [phone] Encounter Details Date Type Department Care Team (Late st Contact Info) Description 02/17/2013 Phlebotomy Only [facility] [address] [place] [address] Hourly Team Members, Outpatient Unspecified epilepsy with intractable epilepsy Social [...] Priority Date/Time Associated Diagnosis Comments MISCELLANEOUS TEST, [place] Routine 02/17/2013 13:07 EDT Unspecified epilepsy with [...] [facility] Ref Lab Assayed at [facility] [facility], [place] [facility] Blood specimen (specimen) 02/17/2013 13:07 EDT 02/17/2013 13:17 EDT Nhan Mendez MD CHEMISTRY & BLOOD GA S ORDERABLES Performing Organization Address [facility] de Phone Number [facility] [address] [place] [address] * (ABNORMAL) LEVETIRACETAM (02/17/2013 12:49 EDT) Levetiracetam, S <2.0(L) 12.0 - 46.0 mcg/mL [facility] Comment: Performed by: [facility], [address] [facility], [place] [address], Freight Elevator Erector: Joselin Curiel, Ph.D. Blood specimen (specimen) 02/17/2013 12:49 EDT 02/17/2013 13:40 EDT Nhan Mendez MD CHEMISTRY & BLOOD GA S ORDERABLES Performing Organization Address [facility] Phone Number [facility] [address] [place] [address] * LAMOTRIGINE (02/17/2013 12:49 EDT) Lamotrigine, Plasma or Serum 5.7 2.5 - 15.0 mcg/mL [facility] Comment: Performed or Referred by: [facility] Labs: [facility], [address] [place] [address], Lab Dir: Juan J Vail III, MD Blood specimen (specimen) 02/17/2013 12:49 EDT 02/17/2013 13:40 EDT Nhan Mendez MD CHEMISTRY & BLOOD GA S ORDERABLES Performing Organization Address [facility]/State/ZIP Co de Phone Number [facility] [address] [place] [address] documented in this encounter Visit Diagnoses Diagnosis Unspecified epilepsy with intractable epilepsy documented in this encounter Care Teams Asset Manager Relationship Specialty Start Date End Date Brian Aleman MD [address] [place] [phone] PCP - General 02/17/13 04/30/13 documented as of this encounter
--- OUTSIDE RECORDS SUMMARY | 2024-02-03 22:32 | XMS_ITS | Encounter Summary ---
Author Organization [facility] Address [address] [place] [address] Care Team Providers Care Dispensing Optician Name Role Phone Dillon Cerda MD Primary Care Provider Un available Reason for Visit * Reason Comments Medical Evaluation Pt sent back from [facility] 1 for elevated B/P. Pt A&Ox3. Pt states that he has not had his b/p meds today. Pt in NAD. B/P normal in triage. Encounter Details Date Type Department Care Team (Late st Contact Info) Description 09/29/2010 16:30 EDT - 09/29/2010 18:41 EDT Emergency [facility] Emergency Department - Main [place] [address] [place] [address] Sawyer Jones MD [address] [place], [place] [address] Emergency, MD Franky Alcohol withdrawal ([facility]) Discharge Disposition: Home or Self [...] ALCOHOL DETOXIFICATION AND WITHDRAWAL: AFTER YOUR VISIT (ITALIAN) documented in this encounter Medications at Time [...] . The patient has been treated per [facility] protocol, but this morning did [...] Colvin - 09/29/2010 1640 EDT TCALL: ZEESHAN ALMODOVAR [birth year] ACT 1 REFERS PT TO ED FOR EVAL. CC: ETOH DETOX, HERE LAST NIGHT. ELEVATED BP / HR TODAY: 229/177, 145 AND 196 / 177, 161 PER ACT 1 (GMD) documented in this encounter Miscellaneous Notes * Scanned Note-Null - [employer] Dean, Scan - 09/29/2010 0000 EDT documented in this encounter Plan of Treatment Not on file documented as of this encounter Visit Diagnoses Diagnosis Alcohol withdrawal ([facility]) Alcohol withdrawal documented in this encounter Administered [...] RN) documented in this encounter Care Teams Dispensing Optician Relationship Specialty Start Date End Date Dillon Cerda MD PCP - General 09/28/10 02/16/13 documented as of this encounter
--- OUTSIDE RECORDS SUMMARY | 2024-02-03 22:32 | XMS_ITS | Encounter Summary ---
Author Organization [facility] Address [address] [place] [address] Care Team Providers Care Supervisor Press Room Name Role Phone Lynn Solis Iris ALCOHOL AND DRUG COUNSELOR Primary Care Provider [phone] Reason for Visit * Reason Onset Date Comments Medication Management 11/13/2014 Encounter Details Date Type Department Care Team (Late st Contact Info) Description 11/13/2014 Telephone [facility] Spine Program - [address] [place] [address] Marifer Costello PA-C [address] [employer] [place] [address] Medication Management Social History Tobacco [...] on filedocumented in this encounter Care Teams Supervisor Press Room Relationship Specialty Start Date End Date Lynn Solis, ALCOHOL AND DRUG COUNSELOR [address] [place] [address] PCP - General 05/28/14 09/15/21 documented as of this encounter
--- OUTSIDE RECORDS SUMMARY | 2024-02-03 22:32 | XMS_ITS | Encounter Summary ---
Author Organization [facility] Address [address] [place] [address] Care Team Providers Care Orthoptist Name Role Phone Leo Gaytan MD Primary [...] 20:24 EDT - 09/29/2010 0:33 EDT Emergency [facility] Emergency Department - Main [place] [address] [place] [address] Maj Vogel MD [address] [place] [phone] Gracie Yang MD [address] [facility], Level 1 [place] [phone] Emergency, MD Franky Dehydration; Alcoholism ([facility]); Epigastric pain Discharge Disposition: Home or Self [...] ALCOHOL DETOXIFICATION AND WITHDRAWAL: AFTER YOUR VISIT (AUSTRIAN) documented in this encounter Medications at Time [...] to waiting area to wait for ACT mule driver. Offering no complaints at this time. * [...] drugs or opiate addiction. He lives in [place]. Medical Evaluation The current episode started today. [...] GA S ORDERABLES [facility] [address] [place] [address] * (ABNORMAL) HEMAGRAM AND DIFFERENTIAL (09/28/2010 22:07 [...] & DNA PROBE ORDERABLES Performing Organization Address [facility] de Phone Number [facility] [address] [place] [address] * MAGNESIUM (09/28/2010 22:07 EDT) Magnesium 2.0 1.7 - 2.8 mg/dl [facility] Blood specimen (specimen) 09/28/2010 22:07 EDT 09/28/2010 22:13 EDT Maj Jaspreet CORRALES CHEMISTRY & BLOOD GA S ORDERABLES Performing Organization Address [facility] [place] [address] * LIVER FUNCTION TESTS (09/28/2010 22:07 EDT) [...] BLOOD GA S ORDERABLES Performing Organization Address [facility] Co de Phone Number [facility] [address] [place] [address] * CREATININE (09/28/2010 22:07 EDT) Creatinine 0.70 0.7 - 1.5 mg/dl [facility] GFR, Calculated >60 ml/min/1.7 3m2 [facility] Blood specimen (specimen) 09/28/2010 22:07 EDT 09/28/2010 22:13 EDT Maj Jaspreet CORRALES CHEMISTRY & BLOOD GA S ORDERABLES Performing Organization Address [facility] de Phone Number [facility] [address] [place] [address] * (ABNORMAL) BUN (09/28/2010 22:07 EDT) BUN 7(L) 10 - 26 mg/dl [facility] Blood specimen (specimen) 09/28/2010 22:07 EDT 09/28/2010 22:13 EDT Maj Jaspreet CORRALES CHEMISTRY & BLOOD GA S ORDERABLES Performing Organization Address [facility] de Phone Number [facility] [address] [place] [address] * ELECTROLYTES (09/28/2010 22:07 EDT) Sodium 138 [...] S ORDERABLES [facility] [address] [place] [address] documented in this encounter Visit Diagnoses Diagnosis Dehydration Alcoholism ([facility]) Other and unspecified alcohol dependence, unspecified [...] RN) documented in this encounter Care Teams Orthoptist Relationship Specialty Start Date End Date Leo Gaytan MD PCP - General 09/28/10 02/16/13 documented as of this encounter
--- OUTSIDE RECORDS SUMMARY | 2024-02-03 22:32 | XMS_ITS | Encounter Summary ---
Author Organization [facility] Address [address] [place] [address] Care Team Providers Care Ski Patroller Name Role Phone Will Lynn Iris TIERNEY Primary Care Provider [phone] Reason for Referral * Consult (Routine) - Specialty Report Received Specialty Diagnoses / Procedures Referred By Mavis rhodes Referred To Contact Pain Medicine Diagnoses Low back pain radiating to both legs Marifer Costello PA-C [address] [place] [phone] [facility] [address] [place] [address] Referral ID Status Reason Start Date Expiration Date Visits Requested Visits Authorized [id number] Specialty Report Received Specialty Services Required 06/25/2014 1 1 Question Answer Reason for Request: Low back pain radiating to both legs Comments Recommend L4-L5/L5-S1 B/L facet injections Reason for Visit * Reason Comments Back Pain MRI f/u radiates to bilat legs Encounter Details Date Type Department Care Team (Late st Contact Info) Description 06/25/2014 9:[address] [facility] Spine Program - [place] [address] [place] [address] Marifer Costello PA-C [address] [place] [address] Low back pain radiating to [...] Lumbago documented in this encounter Care Teams Ski Patroller Relationship Specialty Start Date End Date Lynn Solis, NIALL [address] [place] [address] PCP - General 05/28/14 09/15/21 documented as of this encounter
--- OUTSIDE RECORDS SUMMARY | 2024-02-03 22:32 | XMS_ITS | Encounter Summary ---
Author Organization [facility] Address [address] [place] [address] Care Team Providers Care Director Clinical Pharmacology Name Role Phone Lynn Solis Iris TELEPHOTO INSTALLER Primary Care Provider [phone] Encounter Details Date Type Department Care Team (Late st Contact Info) Description 06/15/2014 Orders Only [facility] Neurophysiology - [facility] [address] [place] [address] Rula Theodore, RN [address] [place] [address] Social History Tobacco Use Types Packs/Day Years [...] HEMAGRAM (02/02/2014 13:17 EDT) HCT, External 47 [facility] MCH, External 33.3 [facility] MCV, External 102 [facility] MCHC, External 32.8 [facility] Hemoglobin, External 15.5 [facility] WBC, External 10.3 [facility] RBC, External 4.66 [facility] PLT, External [address] [facility] RDW-CV, External [facility] Blood specimen (specimen) 02/02/2014 13:17 EDT Brian Cardenas MD HEMATOLOGY & PF4 ORD ERABLES [facility] * COMPREHENSIVE METABOLIC PANEL (CMP) (02/02/2014 13:17 EDT) Pathologist [facility] GFR, Calculated, External >120 [facility] Glucose, Serum, External 198 [facility] Albumin, External 3.7 [facility] Total Alkaline Phosphatase, External [address] [facility] ALT, External 28 [facility] AST, External 16 [facility] BUN, External 7 [facility] Calculated Calcium, External [facility] Calcium, External 8.8 [facility] Chloride, External 103 [facility] CO2, External 27 [facility] Creatinine, External 0.67 [facility] Fasting?, External [facility] Potassium, External 4.3 [facility] Sodium, External 139 [facility] Total Protein, External 7.2 [facility] Bilirubin, Total, External 0.2 [facility] Blood specimen (specimen) 02/02/2014 13:17 EDT Brian Cardenas MD CHEMISTRY & BLOOD GA S ORDERABLES [facility] * LAMOTRIGINE (02/02/2014 13:17 EDT) Pathologist [facility] Lamotrigine, Plasma or Serum, External 4.7 [facility] Blood specimen (specimen) 02/02/2014 13:17 EDT Brian Cardenas MD CHEMISTRY & BLOOD GA S ORDERABLES [facility] documented in this encounter Visit Diagnoses Not on filedocumented in this encounter Care Teams Director Clinical Pharmacology Relationship Specialty Start Date End Date Lynn Solis, TELEPHOTO INSTALLER [address] [place] [address] PCP - General 05/28/14 09/15/21 documented as of this encounter
--- OUTSIDE RECORDS SUMMARY | 2024-02-03 22:32 | XMS_ITS | Encounter Summary ---
Author Organization [facility] Address [address] [place] [address] Care Team Providers Care Earth Moving Machine Operator Name Role Phone IssarachellLynn Iris [facility] DIRECTOR Primary Care Provider [phone] Reason for Visit * Reason Onset Date Comments Injections 07/17/2014 phone f/u Encounter Details Date Type Department Care Team (Late st Contact Info) Description 07/17/2014 Telephone [facility] Spine Program - [address] [place] [address] Marifer Costello PA-C [address] [place] [address] [place] [address] Injections (phone f/u) Social History [...] the following appointments: bone scan appt at [facility] in [place] on Wednesday07/30/14 checking in 3rd floor registration at 10:30 am, injection at 11, and bone scan at 1:45pm. F/u at [address] [facility] Wednesday08/06/14 at 11:15am. Provided appropriate numbers to [...] on filedocumented in this encounter Care Teams Earth Moving Machine Operator Relationship Specialty Start Date End Date Lynn Solis NP [address] [place] [address] PCP - General 05/28/14 09/15/21 documented as of this encounter
--- OUTSIDE RECORDS SUMMARY | 2024-02-03 22:32 | XMS_ITS | Encounter Summary ---
Author Organization [facility] Address [address] [place] [address] Care Team Providers Care Coal Wheeler Name Role Phone Brian Aleman MD Primary Care Provider [phone] Encounter Details Date Type Department Care Team (Late st Contact Info) Description 02/17/2013 10:12 EDT Hospital Encounter [facility] Neurophysiology - [address] [address] Ash Almendarez MD [address] [place] [address]. [address] [place] [phone] Discharge Disposition: Home or Self Care Social [...] on filedocumented in this encounter Care Teams Coal Wheeler Relationship Specialty Start Date End Date Brian Aleman MD [address] [place] [phone] PCP - General 02/17/13 04/30/13 documented as of this encounter
--- OUTSIDE RECORDS SUMMARY | 2024-02-03 22:32 | XMS_ITS | Encounter Summary ---
Author Organization [facility] Address [address] [place] [address] Care Team Providers Care Transcription Name Role Phone IssaalbaLynn brooks Iris TIERNEY Primary Care Provider [phone] Encounter Details Date Type Department Care Team (Late st Contact Info) Description 06/22/2014 16:00 EST - 06/22/2014 23:59 [facility] Hospital Encounter [facility] - [address] [place] [address] Mitchell Lee MD [address] [place] [phone] Discharge Disposition: Home or Self Care [...] Code Departure Means Destination Home or Self Correction documented in this encounter Plan of Treatment Not on file documented as of this encounter Visit Diagnoses Not on filedocumented in this encounter Care Teams Transcription Relationship Specialty Start Date End Date Lynn Solis NP [address] [place] [address] PCP - General 05/28/14 09/15/21 documented as of this encounter
--- OUTSIDE RECORDS SUMMARY | 2024-02-03 22:32 | XMS_ITS | Encounter Summary ---
Author Organization [facility] Address [address] [place] [address] Care Team Providers Care Lvn Lpn Name Role Phone Lynn Solis Iris MANAGER OF APPLICATIONS DEVELOPMENT Primary Care Provider [phone] Reason for Visit * Reason Onset Date Comments Appointment Related 07/17/2014 Encounter Details Date Type Department Care Team (Late st Contact Info) Description 07/17/2014 Telephone [facility] Spine Program - [address] [place] [address] Marifer Costello PA-C [address] [facility] [place] [address] Appointment Related Social History Tobacco [...] on filedocumented in this encounter Care Teams Lvn Lpn Relationship Specialty Start Date End Date Lynn Solis, NIALL [address] [place] [address] PCP - General 05/28/14 09/15/21 documented as of this encounter
--- OUTSIDE RECORDS SUMMARY | 2024-02-03 22:32 | XMS_ITS | Encounter Summary ---
Author Organization [facility] Address [address] [place] [address] Care Team Providers Care Child & Adolescent Psychiatrist Name Role Phone Oly Nieto MD Primary [...] 20:44 EDT - 09/06/2010 1:15 EDT Emergency [facility] Emergency Department - [address] [address] Oly Sherman MD [address] [place] [address], Level 1 [phone] Emergency, MD Franky Alcohol intoxication ([facility]) ([facility]); Noncompliance with medication regimen Discharge Disposition: Home [...] Screening 92 70 - 100 mg/dl [facility] Blood specimen (specimen) 09/05/2010 21:23 EDT 09/05/2010 21:26 EDT Oly Sherman MD CHEMISTRY & BLOOD GAS ORDERABLES [facility] [address] [place] [address] * (ABNORMAL) ETHANOL, BLOOD (09/05/2010 21:23 EDT) Ethanol 306(H) <10 mg/dl [facility] Blood specimen (specimen) 09/05/2010 21:23 EDT 09/05/2010 21:26 EDT Oly Sherman MD CHEMISTRY & BLOOD GAS ORDERABLES [facility] [address] [place] [address] * (ABNORMAL) PHENYTOIN (09/05/2010 21:23 EDT) Phenytoin <3.0(L) 10.0 - 20.0 ug/ml [facility] Blood specimen (specimen) 09/05/2010 21:23 EDT 09/05/2010 21:26 EDT Oly Sherman MD CHEMISTRY & BLOOD GAS ORDERABLES Performing Organization Address [facility] de Phone Number [facility] [address] [place] [address] documented in this encounter Visit Diagnoses Diagnosis Alcohol intoxication ([facility]) Alcohol abuse, unspecified Noncompliance with medication regimen [...] 09/05/2010 documented in this encounter Care Teams Child & Adolescent Psychiatrist Relationship Specialty Start Date End Date Oly Nieto MD PCP - General 01/08/09 09/24/10 documented as of this encounter
--- OUTSIDE RECORDS SUMMARY | 2024-02-03 22:32 | XMS_ITS | Encounter Summary ---
Author Organization [facility] Address [address] [place] [address] Care Team Providers Care Reinforcing Steel Worker Wire Mesh Name Role Phone Brian Aleman MD Primary Care Provider [phone] Encounter Details Date Type Department Care Team (Latest Contact Info) Description 02/17/2013 12:41 EDT - 02/17/2013 23:59 EDT Hospital Encounter [facility] [address] [place] [address] Unknown, Provider, Discharge Disposition: Home or Self [...] Code Departure Means Destination Home or Self Long Term documented in this encounter Plan of Treatment Not on file documented as of this encounter Visit Diagnoses Not on filedocumented in this encounter Care Teams Reinforcing Steel Worker Wire Mesh Relationship Specialty Start Date End Date Brian Aleman MD [address] [place] [phone] PCP - General 02/17/13 04/30/13 documented as of this encounter
--- OUTSIDE RECORDS SUMMARY | 2024-02-03 22:32 | XMS_ITS | Encounter Summary ---
Author Organization [facility] Address [address] [place] [address] Care Team Providers Care Domestic Helper Name Role Phone Will Lynn Iris TIERNEY Primary Care Provider [phone] Reason for Referral * Consult (Routine) - Closed Specialty Diagnoses / Procedures Referred By Mavis rhodes Referred To Contact Pain Medicine Diagnoses Low back pain radiating to both legs Marifer Costello PA-C [address] [place] [address] [facility] [address] [place] [address] Referral ID Status Reason Start Date Expiration Date V isits Requested Visits Authorized [id number] Closed Specialty Services Required 11/01/2014 1 1 [...] Info) Description 11/01/2014 15:15 EDT Office Visit [facility] Spine Program [place] [address] [place] [address] Marifer Costello PA-C [address] [place] [address] Low back pain radiating to [...] Lumbago documented in this encounter Care Teams Domestic Helper Relationship Specialty Start Date End Date Lynn Solis, NIALL [address] [place] [address] PCP - General 05/28/14 09/15/21 documented as of this encounter
--- OUTSIDE RECORDS SUMMARY | 2024-02-03 22:32 | XMS_ITS | Encounter Summary ---
Author Organization [facility] Address [address] [place] [address] Care Team Providers Care Superintendent Operations Division Name Role Phone Oly Nieto MD Primary Care Provider Braeden johnson Reason for Visit * Reason Comments Alcohol Problem Encounter Details Date Type Department Care Team (Late st Contact Info) Description 01/08/2009 2:11 EDT - 01/08/2009 7:40 EDT Emergency [facility] Emergency Department - [address] [address] Jaxon Mendez MD [address] [place] [address], Level 1 [place] [address] Hubert Jarvis MD Emergency, MD [...] of withdrawal symptoms. Call [facility] frequently at [phone] to see if a bed becomes available. [facility] Patient Instructions Alcohol Detoxification [...] Withdrawal: After YourVisit. ?? 2005 - 2008 [employer]. Care instructions adapted under license by [facility], [facility] . This care instruction is for use with your licensed healthcare professional. If you have questions about a medical condition or this instruction, always ask your healthcare professional. [employer] disclaims any warranty or liability for your [...] had seizure 01/07 afternoon, was seen at [facility] ED where dilantin level low, [...] further detox but currently no bed at [facility]. Will d/c to his uncle's home in [facility] with plan to enter [facility] whenspace becomes available. MDM Number of Diagnoses and Management Options Chronic Alcohol Abuse: Amount and/or Complexity of Data Reviewed Clinical lab tests: ordered and reviewed Review and summarize past medical records: yes ([facility] ED) Discuss the patient with other providers: yes ([facility]- personnel) No diagnosis found. PCP: OLY NIETO [...] Provid er: Viviana Galo RN - Comment: #[phone]) documented in this encounter Orders Diet Count Last Ordered Date First Orde red Date DIET NPO TIME SPECIFIED 1 01/08/2009 documented in this encounter Care Teams Superintendent Operations Division Relationship Specialty Start Date End Date Oly Nieto MD PCP - General 01/08/09 09/24/10 documented as of this encounter
--- OUTSIDE RECORDS SUMMARY | 2024-02-03 22:32 | XMS_ITS | Encounter Summary ---
Author Organization [facility] Address [address] [place] [address] Care Team Providers Care Air Conditioning Unit Tester Name Role Phone Jaxon Napier MD Primary Care Provider [phone] Encounter Details Date Type Department Care Team (Latest Contact Info) Description 05/01/2013 12:23 EST - 05/01/2013 23:59 EST Hospital Encounter [facility] Neurophysiology - Main [address] [address] Discharge Disposition: Home or Self Care Social [...] Self Senior Care documented in this encounter Procedure Notes * Marko Guerrero MD - 05/01/2013 1613 ESTProcedure(s): EEG- TRANSCRIBED ORDER Clinical Neurophysiology Laboratory Name: [facility] : [address] [place], [place] Date: 05/01/2013 Electroencephalogram Report Referring Physician: [...] on filedocumented in this encounter Care Teams Air Conditioning Unit Tester Relationship Specialty Start Date End Date Jaxon Napier MD [address] [address] PCP - General 05/01/13 05/27/14 documented as of this encounter
--- OUTSIDE RECORDS SUMMARY | 2024-02-03 22:32 | XMS_ITS | Encounter Summary ---
Author Organization [facility] Address [address] [place] [address] Care Team Providers Care Environmental Field Technician Name Role Phone Brian Aleman MD Primary Care Provider [phone] Reason for Visit * Reason Comments Seizures [...] EDT - 02/17/2013 12:40 EDT Hospital Encounter [facility] Neurophysiology - [facility] [address] [place] [address] Ash Almendarez MD 111 [facility], Brian. Level [address] [place] [phone] Unspecified epilepsy with intractable epilepsy (Primary Dx) [...] Code Departure Means Destination Home or Self Long-Term documented in this encounter Progress Notes * Ash Almendarez MD - 03/26/2013 6906 EDT Attending Addendum: I personally interviewed and [...] [facility] Ref Lab Assayed at [facility], [place] [facility] Blood specimen (specimen) 02/17/2013 13:07 EDT 02/17/2013 13:17 EDT Nhan Mendez MD CHEMISTRY & BLOOD GA S ORDERABLES Performing Organization Address [facility] Co de Phone Number [facility] [address] [place] [address] * (ABNORMAL) LEVETIRACETAM (02/17/2013 12:49 EDT) Levetiracetam, S <2.0(L) 12.0 - 46.0 mcg/mL [facility] Comment: Performed by: [facility], [address], [place] [address], Classified Advertising Clerk: Joselin Curiel, Ph.D. Blood specimen (specimen) 02/17/2013 12:49 EDT 02/17/2013 13:40 EDT Nhan Mendez MD CHEMISTRY & BLOOD GA S ORDERABLES Performing Organization Address [facility] Co de Phone Number [facility] [address] [place] [address] * LAMOTRIGINE (02/17/2013 12:49 EDT) Lamotrigine, Plasma or Serum 5.7 2.5 - 15.0 mcg/mL [facility] Comment: Performed or Referred by: [facility] Labs: [facility], [facility] [place] [place] [address], Lab Dir: Juan J Vail III, MD Blood specimen (specimen) 02/17/2013 12:49 EDT 02/17/2013 13:40 EDT Nhan Mendez MD CHEMISTRY & BLOOD GA S ORDERABLES [facility] [address] [place] [address] documented in this encounter Visit Diagnoses Diagnosis [...] 02/17/2013 added in this encounter Care Teams Environmental Field Technician Relationship Specialty Start Date End Date Brian Aleman MD [address] [place] [phone] PCP - General 02/17/13 04/30/13 documented as of this encounter
--- OUTSIDE RECORDS SUMMARY | 2024-02-03 22:32 | XMS_ITS | Encounter Summary ---
Author Organization [facility] Address [address] [place] [address] Care Team Providers Care Dairy Associate Name Role Phone Lynn Solis Iris MOTO MIX OPERATOR Primary Care Provider [phone] Reason for Visit * Reason Comments Back Pain mid and lower back p ain radiates to bilat legs Encounter Details Date Type Department Care Team (Late st Contact Info) Description 05/30/2014 9:45 EST Office Visit [facility] Spine Program - [address] [place] [address] Marifer Costello PA-C [address] [place] [address] [place] [address] Low back pain radiating to [...] Lumbago documented in this encounter Care Teams Dairy Associate Relationship Specialty Start Date End Date Lynn Solis NP [address] [place] [address] PCP - General 05/28/14 09/15/21 documented as of this encounter
--- OUTSIDE RECORDS SUMMARY | 2024-02-03 22:32 | XMS_ITS | Encounter Summary ---
Author Organization [facility] Address [address] [place] [address] Care Team Providers Care Truck Supervisor Name Role Phone Lynn Solis Iris GLUE SPREADER Primary Care Provider [phone] Reason for Visit * Reason Comments Seizures Last 02/17/13. Thinks last seizure was in January 2014. No seizures since that time Encounter Details Date Type Department Care Team (Late st Contact Info) Description 06/14/2014 15:26 EST - 06/14/2014 23:59 EST Hospital Encounter [facility] Neurophysiology - [address] [address] Ash Almendarez MD [address] [place] [address]. [address] [place] [phone] Discharge Disposition: Home or Self Care Social [...] Departure Means Destination Home or Self Senior Living documented in this encounter Progress Notes * Ash Almendarez MD - 06/14/2014 1602 EST [facility] Epilepsy Program - Follow-Up Patient Visit 06/14/2014 [...] JAN 2014 and taken to ER at [facility]. 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 No [...] HEAD from 12 JUL 2012 done at [facility] reviewed with Dr. Almendarez. Few punctate T2 hyperintense EEG from [facility] read by Dr. Soetlo: 09 JUL 2011, 22 APR 2009, 29 [...] 03/13/2020 added in this encounter Care Teams Truck Supervisor Relationship Specialty Start Date End Date Lynn Solis, [address] [place] [address] PCP - General 05/28/14 09/15/21 documented as of this encounter
--- OUTSIDE RECORDS SUMMARY | 2024-02-03 22:32 | XMS_ITS | Encounter Summary ---
Author Organization [facility] Address [address] [place] [address] Care Team Providers Care Slotter Operator Name Role Phone Vira Morfin MD Primary Care Provider Encounter Details Date Type Department Care Team (Late st Contact Info) Description 05/01/2013 12:13 EST - 05/05/2013 13:52 EST Hospital Encounter [facility] Neurosurgery Unit [address] [place] [address] Diana Almendarez MD [address] [facility]. Level 5 [place] [phone] Damien Reed MD Spekeya (Primary Dx) Discharge [...] to Get Your Medications You need to pickle maker these prescriptions. We sent them to a specific pharmacy, so go there to get them. [facility] [place] [address] - [place], [place] - [address] [place] [address] STREET - lamoTRIgine 150 mg tablet [address] [place] [address] [address]RE[address] [facility] [phone] Outstanding Labs / Studies: MRI head with [...] call from Mely Frazier CM with the [place] chronic care initiative after pt was dcd and she will try to follow-up with pt at home. Ileana Tillman RN # [id number] * Keyla Britton - 05/05/2013 1345 EST [...] intact bilaterally by finger rub. Diego and Hardaway testing intact bilaterally. CN IX-X: Palate elevates [...] reported when available. MRI Jul 2012 from [facility] showing left hippocampal size decrease vs R, [...] intact bilaterally by finger rub. Diego and Hardaway testing intact bilaterally. CN IX-X: Palate elevates [...] Dow provides drug and alcohol counseling in [place], [place]. Attends AA in [place] or [place]. Advanced Directives/DPOA: Yes on file Cultural/Spiritual Needs: declines Insurance/Financial Needs: [employer]. [facility] in [place]. Transportation Needs: Uncle to provide @ dc [...] intact bilaterally by finger rub. Diego and Hardaway testing intact bilaterally. CN IX-X: Palate elevates [...] has no family history of epilepsy. No ACCOUNTING ADVISORY SERVICES MANAGER infections, or seizures previous in 1995. He [...] intact bilaterally by finger rub. Diego and Hardaway testing intact bilaterally. CN IX-X: Palate elevates [...] epilepsy Clinical Neurophysiology Laboratory Name: Fran Blanca [facility] : [address] [place], [place] Date: 05/05/2013 Video-Electroencephalographic Monitoring Report Referring [...] Alfonso Craft MD Professor of Neurological Sciences [facility] * Diana Almendarez MD - 05/04/2013 0849 EST Clinical Neurophysiology Laboratory Name: Fran Justin [facility] : [address] [place], [place] Date: 05/04/2013 Video-Electroencephalographic Monitoring Report Referring [...] reported when available. DIANA ALMENDAREZ MD Diplomate, [place] [employer]iat[employer] and Neurology - Neurology with added qualifications in clinical neurophysiology. 8:49 05/04/2013 * Diana Almendarez MD - 05/03/2013 0957 EST Clinical Neurophysiology Laboratory Name: Fran Justin [facility] : [address] [place], [place] Date: 05/03/2013 Video-Electroencephalographic Monitoring Report Referring [...] the findings documented. DIANA ALMENDAREZ MD Diplomate, [place] [employer] Psychiatry and Neurology - Neurology with added qualifications in clinical neurophysiology. 14:08 05/03/2013 * Diana Almendarez MD - 05/02/2013 0931 EST Clinical Neurophysiology Laboratory Name: Fran Justin [facility] : [address] [place], [place] Date: 05/02/2013 Video-Electroencephalographic Monitoring Report Referring [...] the findings documented. DIANA ALMENDAREZ MD Diplomate, [place] [employer] Psychiatry and Neurology - Neurology [...] Care - Catrina Sandoval RN - 05/01/2013 5079 EST Problem: HOSPITAL ORIENTATION/SAFETY Goal: Oriented To [...] Indication: Seizures. Comparison: MRI July 12, 2012 [facility] [address] head February 17, 2012 from [facility]. Technique: Sagittal T1, coronal T1, T2, [...] Indication: Seizures. Comparison: MRI July 12, [address] [facility] [address] head February 17, 2012 from [facility]. Technique: Sagittal T1, coronal T1, T2, [...] correlated with EEG findings. Sawyer Bolivar MD [facility] [place] ORDERABLES * DRUG SCREEN 6 (05/01/2013 [...] ORDERAB LES [facility] [address] [place] [address] * (ABNORMAL) DIFFERENTIAL (05/01/2013 15:44 EST) Neutrophils [...] & PF4 O RDERABLES Performing Organization Address City/[facility] Co de Phone Number [facility] [address] [place] [address] * (ABNORMAL) HEMAGRAM (05/01/2013 15:44 EST) WBC [...] & PF4 O RDERABLES Performing Organization Address [facility] Co de Phone Number [facility] [address] [place] [address] * LAMOTRIGINE (05/01/2013 15:44 EST) Lamotrigine, Plasma or Serum 4.6 2.5 - 15.0 mcg/mL [facility] Comment: Performed or Referred by: [facility] Labs: [facility], [address] [place] [address], Lab Dir: Juan J Vail III, MD Blood specimen (specimen) 05/01/2013 15:44 EST 05/01/2013 15:50 EST Sawyer Bolivar MD CHEMISTRY & BLOOD GAS ORDERABLES Performing Organization Address [facility] Co de Phone Number [facility] [address] [place] [address] * (ABNORMAL) LEVETIRACETAM (05/01/2013 15:44 EST) Levetiracetam, S 7.6(L) 12.0 - 46.0 mcg/mL [facility] Comment: Performed by: [facility], [address], [place] [address], [place] Attendant: Joselin Curiel, Ph.D. Blood specimen (specimen) 05/01/2013 15:44 EST 05/01/2013 15:50 EST Sawyer Bolivar MD CHEMISTRY & BLOOD GAS ORDERABLES Performing Organization Address [facility] Co de Phone Number [facility] [address] [place] [address] * ETHANOL, BLOOD (05/01/2013 15:44 EST) Ethanol <10 <10 mg/dl [facility] Comment: Interpret results with caution. Prolonged sample storage may alter result. Blood specimen (specimen) 05/01/2013 15:44 EST 05/01/2013 15:50 EST Sawyer Bolivar MD CHEMISTRY & BLOOD GAS ORDERABLES Performing Organization Address [facility] Co de Phone Number [facility] [address] [place] [address] * TSH (05/01/2013 15:44 EST) TSH 0.73 0.35 - 5.00 uIU/ml [facility] Blood specimen (specimen) 05/01/2013 15:44 EST 05/01/2013 15:50 EST Sawyer Bolivar MD CHEMISTRY & BLOOD GAS ORDERABLES Performing Organization Address [facility] Co de Phone Number [facility] [address] [place] [address] * LIPID PROFILE (INCLUDES CHOLESTEROL, TRIGLYCERIDES, HDL, LDL) (05/01/2013 15:44 EST) Cholesterol 210 mg/dl [facility] Comment: Desirable:<200 Borderline High:200-239 High:>fu=621 Triglycerides 105 mg/dl [facility] Comment: Normal:<150 Borderline High:150-199 High:200-499 Very High:>og=500 HDL 70 mg/dl [facility] Comment: Low:<40 Normal:40-60 Desirable: >60 LDL, Calculated 119 mg/dl [facility] Comment: Optimal:<100 Near Optimal:100-129 Borderline High:130-159 High:160-189 Very High:>fz=911 Chol/HDL Ratio 3.0 [facility] Fasting? Unknown [facility] Non HDL Cholesterol 140 mg/dl [facility] Comment: Desirable:<130 Borderline:130-159 High: 160-189 Very High: >ss=334 Blood specimen (specimen) 05/01/2013 15:44 EST 05/01/2013 15:50 EST Sawyer Bolivar MD CHEMISTRY & BLOOD GAS ORDERABLES Performing Organization Address [facility] Co de Phone Number [facility] [address] [place] [address] * FOLATE (05/01/2013 15:44 EST) Pathologist [facility] Folate 7.4 ng/mL [facility] Comment: Deficient: ??Less than 3.4 ng/mL Indeterminate: ??3.4-5.4 ng/mL Normal: ??Greater than 5.4 ng/mL Blood specimen (specimen) 05/01/2013 15:44 EST 05/01/2013 15:50 EST Sawyer Bolivar MD CHEMISTRY & BLOOD GAS ORDERABLES Performing Organization Address [facility] Co de Phone Number [facility] [address] [place] [address] * VITAMIN B12 (05/01/2013 15:44 EST) Pathologist [facility] Vitamin B-12 625 211 - 911 pg/ml [facility] Blood specimen (specimen) 05/01/2013 15:44 EST 05/01/2013 15:50 EST Sawyer Bolivar MD CHEMISTRY & BLOOD GAS ORDERABLES Performing Organization Address [facility] Co de Phone Number [facility] [address] [place] [address] * (ABNORMAL) LDH (05/01/2013 15:44 EST) LDH 675(H) 313 - 618 U/L [facility] Blood specimen (specimen) 05/01/2013 15:44 EST 05/01/2013 15:50 EST Sawyer Bolivar MD CHEMISTRY & BLOOD GAS ORDERABLES Performing Organization Address [facility] Phone Number [facility] [address] [place] [address] * ALT (05/01/2013 15:44 EST) Pathologist [facility] ALT 25 21 - 72 U/L [facility] Blood specimen (specimen) 05/01/2013 15:44 EST 05/01/2013 15:50 EST Sawyer Bolivar MD CHEMISTRY & BLOOD GAS ORDERABLES Performing Organization Address [facility] Phone Number [facility] [address] [place] [address] * AST (05/01/2013 15:44 EST) AST 31 15 - 46 U/L [facility] Blood specimen (specimen) 05/01/2013 15:44 EST 05/01/2013 15:50 EST Sawyer Bolivar MD CHEMISTRY & BLOOD GAS ORDERABLES Performing Organization Address [facility] Co de Phone Number [facility] [address] [place] [address] * PHOSPHORUS (05/01/2013 15:44 EST) Phosphorus 4.0 2.5 - 4.5 mg/dl [facility] Blood specimen (specimen) 05/01/2013 15:44 EST 05/01/2013 15:50 EST Sawyer Bolivar MD CHEMISTRY & BLOOD GAS ORDERABLES Performing Organization Address [facility] de Phone Number [facility] [address] [place] [address] * MAGNESIUM (05/01/2013 15:44 EST) Magnesium 2.1 1.7 - 2.8 mg/dl [facility] Blood specimen (specimen) 05/01/2013 15:44 EST 05/01/2013 15:50 EST Sawyer Bolivar MD CHEMISTRY & BLOOD GAS ORDERABLES Performing Organization Address [facility] Phone Number [facility] [address] [place] [address] * CALCIUM (05/01/2013 15:44 EST) Calcium 10.1 8.5 - 10.5 mg/dl [facility] Calculated Calcium 10.4 8.5 - 10.5 mg/dl [facility] Blood specimen (specimen) 05/01/2013 15:44 EST 05/01/2013 15:50 EST Swayer Bolivar MD CHEMISTRY & BLOOD GAS ORDERABLES Performing Organization Address [facility] Phone Number [facility] [address] [place] [address] * CREATININE (05/01/2013 15:44 EST) Creatinine 0.74 0.66 - 1.25 mg/dl [facility] GFR, Calculated >60 >60 ml/min/1.7 3m2 [facility] Blood specimen (specimen) 05/01/2013 15:44 EST 05/01/2013 15:50 EST Sawyer Bolivar MD CHEMISTRY & BLOOD GAS ORDERABLES Performing Organization Address [facility] de Phone Number [facility] [address] [place] [address] * BUN (05/01/2013 15:44 EST) BUN 15 10 - 26 mg/dl [facility] Blood specimen (specimen) 05/01/2013 15:44 EST 05/01/2013 15:50 EST Sawyer Bolivar MD CHEMISTRY & BLOOD GAS ORDERABLES Performing Organization Address [facility] Phone Number [facility] [address] [place] [address] * (ABNORMAL) ELECTROLYTES (05/01/2013 15:44 EST) Pathologist [facility] Sodium 141 136 - 145 mEq/L [facility] Potassium 5.1(H) 3.5 - 5.0 mEq/L [facility] Chloride 102 96 - 110 mEq/L [facility] CO2 24 24 - 32 mEq/L [facility] Blood specimen (specimen) 05/01/2013 15:44 EST 05/01/2013 15:50 EST Sawyer Bolivar MD CHEMISTRY & BLOOD GAS ORDERABLES Performing Organization Address [facility] Phone Number [facility] [address] [place] [address] * SCREENING GLUCOSE (05/01/2013 15:44 EST) Glucose, Screening 83 70 - 100 mg/dl [facility] Blood specimen (specimen) 05/01/2013 15:44 EST 05/01/2013 15:50 EST Sawyer Bolivar MD CHEMISTRY & BLOOD GAS ORDERABLES Performing Organization Address [facility] Phone Number [facility] [address] [place] [address] documented in this encounter Visit Diagnoses Diagnosis [...] 0900, Until Discontinued 0812 (Given - Provider: Wlima Russell RN) 0829 (Given - Provider: Keyla [...] 05/05/2013 documented in this encounter Care Teams Slotter Operator Relationship Specialty Start Date End Date Vira Morfin MD [address] [address] PCP - General 05/01/13 05/27/14 documented as of this encounter
--- OUTSIDE RECORDS SUMMARY | 2024-02-03 22:32 | XMS_ITS | Encounter Summary ---
Author Organization [facility] Address [address] [place] [address] Care Team Providers Care Automatic Blocker Name Role Phone Jaxon Napier MD Primary Care Provider [phone] Reason for Referral * Radiology Services (Routine) - Closed Specialty Diagnoses / Procedures Referred By Mavis t Referred To Contact Diagnoses Lumbago Procedures L SPINE 4 OR MORE VIEWS Marifer Costello PA-C [address] [place] [phone] Referral ID Status Reason Start Date Expiration Date Visits Re quested Visits Authorized [id number] Closed 05/10/2014 1 1 Encounter Details Date Type Department Care Team (Late st Contact Info) Description 05/09/2014 Orders Only [facility] Spine Program - [address] [address] Marifer Costello PA-C [address] [place] [phone] Lumbago (Primary Dx) Social History Tobacco [...] Primary documented in this encounter Care Teams Automatic Blocker Relationship Specialty Start Date End Date Jaxon Napier MD [address] [address] PCP - General 05/01/13 05/27/14 documented as of this encounter
--- OUTSIDE RECORDS SUMMARY | 2024-02-03 22:32 | XMS_ITS | Encounter Summary ---
Author Organization [facility] Address [address] [place] [address] Care Team Providers Care Investigator Operator Name Role Phone Jaxon Napier MD Primary Care Provider [phone] Reason for Visit * Reason Comments Other Encounter Details Date Type Department Care Team (Late st Contact Info) Description 12/31/2013 [facility] [address] [place] [address] Sawyer Bolivar MD [address] [place] [address] Other Social History Tobacco Use Types Packs/Day [...] on filedocumented in this encounter Care Teams Investigator Operator Relationship Specialty Start Date End Date Jaxon Napier MD [address] [id number] PCP - General 05/01/13 05/27/14 documented as of this encounter
--- OUTSIDE RECORDS SUMMARY | 2024-02-03 22:33 | XMS_ITS | Encounter Summary ---
Author Organization [facility] Address [facility] [place] [address] Care Team Providers Care Commodity Buyer Name Role Phone Nino Underwood MD Primary Care Provider [phone] Reason for Visit * Reason Comments Follow-up Encounter Details Date Type Department Care Team (Late st Contact Info) Description 09/26/2020 9:00 AM EDT Office [place] [address] Marko Jordan MD [facility] DR [place] [address] Abscess of middle lobe of right lung [...] Attending Outpatient Consultation Note Marko Jordan MD [place] [address] FAX: Today I saw Mr. Fran Justin in follow-up from his recent hospitalization for a right middle lobe pneumonia with empyema. He was admitted to [facility] on 09/11/2020 admitted via transfer and had [...] fistula documented in this encounter Care Teams Commodity Buyer Relationship Specialty Start Date End Date Nino Underwood MD [address] [place] [address] PCP - General Family Medicine 09/11/20 03/29/23 documented as of this encounter
--- OUTSIDE RECORDS SUMMARY | 2024-02-03 22:33 | XMS_ITS | Encounter Summary ---
Author Organization [facility] Address [address] [place] [address] Care Team Providers Care Head Rigger Name Role Phone Mitchell Del Rosario MD Primary Care Provider Mitchell Bragg MD Primary Care Provider Braeden johnson Encounter Details Date Type Department Care Team (Late st Contact Info) Description 05/20/2008 Office Visit [facility] - [facility] [address] [place] [address] Hubert Jarvis MD Social History Tobacco Use [...] 13:47) Addenda for ZEESHAN ALMODOVAR SR VisitID: [id number] Date: 05/20/2008 05/20/2008 11:08 [facility] REFERRING [...] Patient verbalized understanding. Written instructions provided in Swazi. ([facility] staff given information on meds [...] on filedocumented in this encounter Care Teams Head Rigger Relationship Specialty Start Date End Date Mitchell Del Rosario MD PCP - General 01/08/09 09/24/10 Mitchell Del Rosario MD PCP - General 11/05/08 01/07/09 documented as of this encounter
--- OUTSIDE RECORDS SUMMARY | 2024-02-03 22:33 | XMS_ITS | Encounter Summary ---
[place] [address] Care Team Providers Care Tray Drier Name Role Phone Nino Underwood MD Primary Care Provider [phone] Reason for Visit * Reason Onset Date Comments Medication Refill 09/23/2020 Encounter Details Date Type Department Care Team (Late st Contact Info) Description 09/23/2020 Refill [place] [phone] Patty Byrnes, RN Social History Tobacco Use [...] on filedocumented in this encounter Care Teams Tray Drier Relationship Specialty Start Date End Date Nino Underwood MD [address] [place] [address] PCP - General Family Medicine 09/11/20 03/29/23 documented as of this encounter
--- OUTSIDE RECORDS SUMMARY | 2024-02-03 22:33 | XMS_ITS | Encounter Summary ---
Author Organization [facility] Address [address] [place] [address] Care Team Providers Care Binder And Box Builder Name Role Phone Mitchell Del Rosario MD Primary Care Provider Mitchell Bragg MD Primary Care Provider Braeden johnson Encounter Details Date Type Department Care Team (Late st Contact Info) Description 05/18/2008 Office Visit [facility] - Maple conversion [address] [place] [address] Blake Melgar MD [address] [facility], Level [address] [place] [phone] Social History Tobacco Use Types Packs/Day Years [...] M.D. 05/21/2008 6:47) ZEESHAN Charles SR VisitID: [id number] Date: 05/17/2008 05/17/2008 18:56 pt coming from [...] triage ). Pain level now: 0/10. Treatment SURVEILLANCE AGENT: None. PAST HX: (Siezures ). SOCIAL HX: [...] . --2103 Gilbert Torres R.N. (reevaled by [facility]). --2144 Bailee ValenzuelaN. HR: 110. RR: [...] 05/25/2008 9:33) Addenda for NISHI SUMMERSZEESHAN VisitID: [id number] Date: 05/18/2008 05/18/2008 19:36 referred to ed by [facility] - was seen at counts include [facility] beds at the [facility] yesterday for same signed by Kia [...] from [facility] will be coming to bean picker pt.). The patient was discharged ([facility]/ report to Lisa). --2131 Marisel Jorge R.N.. Evelia Barriga R.N., R.N. Locked/Released at 05/18/2008 22:57 by Marisel Jorge R.N. documented in this encounter Plan of Treatment Not on file documented as of this encounter Visit Diagnoses Not on filedocumented in this encounter Care Teams Binder And Box Builder Relationship Specialty Start Date End Date Mitchell Del Rosario MD PCP - General 01/08/09 09/24/10 Mitchell Del Rosario MD PCP - General 11/05/08 01/07/09 documented as of this encounter
--- OUTSIDE RECORDS SUMMARY | 2024-02-03 22:33 | XMS_ITS | Encounter Summary ---
Author Organization [facility] Address [address] [place] [address] Care Team Providers Care Headwaitress Name Role Phone Unavailable Primary Care Provider Unavailabl e Encounter Details Date Type Department Care Team (Latest Contact Info) Description 12/26/1999 23:20 EDT - 12/27/1999 11:59 EDT Hospital Encounter [facility] Emergency Department - [facility] [address] [place] [address] Emergency, Default, MD Discharge Disposition: Home or [...]
--- OUTSIDE RECORDS SUMMARY | 2024-02-03 22:33 | XMS_ITS | Encounter Summary ---
Author Organization [facility] [place] [address] Care Team Providers Care Him Specialists Name Role Phone Nino Underwood MD Primary Care Provider [phone] Reason for Visit * Reason Comments Nicotine Dependence Encounter Details Date Type Department Care Team (Late st Contact Info) Description 09/30/2020 12:30 PM EDT TH Visit (TeleHealth) [place] [address] Estrella Gomez APRN [facility] DR CARDIOTHORACIC [place] [address] Nicotine dependence, cigarettes, uncomplicated; Tobacco abuse counseling [...] - Tobacco Cessation Consultation Estrella Gomez APRN [place], [place] [address] FAX: HPI: Fran Justin is a 55 [...] 4 hours. ??? naloxone (Narcan) 4 mg/actuation [place], Non-Aerosol SPRAY 0.1ML INTO ONE NOSTRIL REPEAT [...] Guided Drain Lung 09/16/2020 Jaxon Espinosa, DO [facility] RAD CAT SCAN Social History: Social History [...] Gatherings with Friends and Family: ??? Attends Spiritism Services: ??? Active Member of Clubs or [...] APRN 09/30/20 Thoracic Surgery - Tobacco Cessation [facility] documented in this encounter Plan of Treatment Not on file documented as of this encounter Visit Diagnoses Diagnosis Nicotine dependence, cigarettes, uncomplicated Tobacco abuse counseling Counseling on substance use and abuse documented in this encounter Care Teams Him Specialists Relationship Specialty Start Date End Date Nino Underwood MD [address] [place] [address] PCP - General Family Medicine 09/11/20 03/29/23 documented as of this encounter
--- OUTSIDE RECORDS SUMMARY | 2024-02-03 22:33 | XMS_ITS | Encounter Summary ---
[place] [address] Care Team Providers Care Cash Applications Coordinator Name Role Phone Nino Underwood MD Primary Care Provider [phone] Encounter Details Date Type Department Care Team (Late st Contact Info) Description 09/20/2020 Orders [place] [address] Patty Byrnes RN Social History Tobacco Use [...] on filedocumented in this encounter Care Teams Cash Applications Coordinator Relationship Specialty Start Date End Date Nino Underwood MD [address] [place], [place] [id number] PCP - General Family Medicine 09/11/20 03/29/23 documented as of this encounter
--- OUTSIDE RECORDS SUMMARY | 2024-02-03 22:33 | XMS_ITS | Encounter Summary ---
[place] [address] Care Team Providers Care Office Machine Repair Shop Supervisor Name Role Phone Nino Underwood MD Primary Care Provider Encounter Details Date Type Department Care Team (Late st Contact Info) Description 12/31/2020 Ancillary Procedure [place] [address] Nino Underwood MD [address] [place] [id number] Social History Tobacco Use Types Packs/Day Years [...] / CT (12/31/2020 12:00 AM EDT) Narrative [facility] - 01/09/2021 4:27 PM EDT This exam is auto-finalizing. It's purpose is for storage only. Nino Underwood MD [facility] [place] [facility]RARY ORD ERABLES [facility] [place], [place] documented in this encounter Visit Diagnoses Not on filedocumented in this encounter Care Teams Office Machine Repair Shop Supervisor Relationship Specialty Start Date End Date Nino Underwood MD [address] [place] [address] PCP - General Family Medicine 09/11/20 03/29/23 documented as of this encounter
--- OUTSIDE RECORDS SUMMARY | 2024-02-03 22:33 | XMS_ITS | Encounter Summary ---
Author Organization [facility] Address [address] [place] [address] Care Team Providers Care Automotive Services Manager Name Role Phone Mitchell Del Rosario MD Primary Care Provider Mitchell Bragg MD Primary Care Provider Braeden johnson Encounter Details Date Type Department Care Team (Late st Contact Info) Description 10/09/2007 Office Visit [facility] [address] [place] [address] Alfredo Pastor PA-C [address] [place], [place] [id number] Social History Tobacco Use Types Packs/Day Years [...] recurrent problem. Pain level now: 0/10. Treatment COGNOS CONSULTANT: None. PAST HX: (seizure when coming off [...] family verbalized understanding. Written instructions provided in Tristanian. The patient was discharged ([facility]) and [...] on filedocumented in this encounter Care Teams Automotive Services Manager Relationship Specialty Start Date End Date Mitchell Del Rosario MD PCP - General 01/08/09 09/24/10 Mitchell Del Rosario MD PCP - General 11/05/08 01/07/09 documented as of this encounter
--- OUTSIDE RECORDS SUMMARY | 2024-02-03 22:33 | XMS_ITS | Encounter Summary ---
Author Organization [facility] Address [address] [place] [address] Care Team Providers Care Director Title Name Role Phone Unavailable Primary Care Provider Unavailabl e Encounter Details Date Type Department Care Team (Latest Contact Info) Description 05/17/2008 19:10 EST Hospital Encounter [facility] Emergency Department - [facility] [address] [place] [address] Emergency, Default, MD Discharge Disposition: Home or [...] SUPPORT & PHONE RESULT Performing Organization Address [facility] Co ne Phone Number [facility] [address] [place] [address] * (ABNORMAL) GLUCOSE, SERUM (05/17/2008 20:45 EST) Glucose, Serum 103(H) 70 - 100 mg/dl [facility] 05/17/2008 20:4 5 EST 05/17/2008 20:49 EST Default Emergency MD CHEMISTRY & BLOOD G ORDERABLES Performing Organization Address [facility] Phone Number [facility] [address] [place] [address] * CREATININE (05/17/2008 20:45 EST) Creatinine 0.70 0.7 - 1.5 mg/dl [facility] GFR, Calculated >60 ml/min/1.7 3m2 [facility] 05/17/2008 20:4 5 EST 05/17/2008 20:49 EST Default Emergency MD CHEMISTRY & BLOOD G ORDERABLES Performing Organization Address [facility] Phone Number [facility] [address] [place] [address] * (ABNORMAL) BUN (05/17/2008 20:45 EST) BUN 6(L) 10 - 26 mg/dl [facility] 05/17/2008 20:4 5 EST 05/17/2008 20:49 EST Default Emergency MD CHEMISTRY & BLOOD G ORDERABLES Performing Organization Address [facility] de Phone Number [facility] [address] [place] [address] * (ABNORMAL) ELECTROLYTES (05/17/2008 20:45 EST) Sodium 150(H) 136 - 145 mEq/L [facility] Potassium 4.5 3.5 - 5.0 mEq/L [facility] Chloride 107 96 - 110 mEq/L [facility] CO2 30 24 - 32 mEq/L [facility] 05/17/2008 20:4 5 EST 05/17/2008 20:49 EST Default Emergency MD CHEMISTRY & BLOOD G ORDERABLES Performing Organization Address City/State/[facility] Co de Phone Number [facility] [address] [place] [address] documented in this encounter Visit Diagnoses Not on filedocumented in this encounter
--- OUTSIDE RECORDS SUMMARY | 2024-02-03 22:33 | XMS_ITS | Encounter Summary ---
Author [facility] [place] [address] Care Team Providers Care Poker Machine Attendant Name Role Phone Nino Underwood MD Primary Care Provider [phone] Reason for Visit * Reason Onset Date Comments Post Procedure Call 09/23/2020 Encounter Details Date Type Department Care Team (Late st Contact Info) Description 09/23/2020 Telephone [place] [phone] Patty Byrnes RN Post Procedure Call Social [...] contrast 09/26/2020 arrival 6:45 am to medical reception specialist area 3Z Dr. Jordan in medical reception specialist area 3K at 9:45 am Fran Almodovar is aware of appointments and know to call with any questions or concerns. documented in this encounter Plan of Treatment Not on file documented as of this encounter Visit Diagnoses Not on filedocumented in this encounter Care Teams Poker Machine Attendant Relationship Specialty Start Date End Date Nino Underwood MD [address] [place] [address] PCP - General Family Medicine 09/11/20 03/29/23 documented as of this encounter
--- OUTSIDE RECORDS SUMMARY | 2024-02-03 22:33 | XMS_ITS | Clinical Summary ---
Author Organization [facility] Address [facility] [place] [address] Care Team Providers Care Extrusion Press Adjuster Name Role Phone Unknown Primary Care Provider [...] 4 hours. Active naloxone (Narcan) 4 mg/actuation [place], Non-Aerosol SPRAY 0.1ML INTO ONE NOSTRIL REPEAT [...] Status decision made by: Patient Care Teams Extrusion Press Adjuster Relationship Specialty Start Date End Date Unknown None PCP - General 03/30/23
--- OUTSIDE RECORDS SUMMARY | 2024-02-03 22:33 | XMS_ITS | Encounter Summary ---
Author Organization [facility] [place] [address] Care Team Providers Care Parachute Packer Name Role Phone Nino Underwood MD Primary Care Provider [phone] Reason for Visit * Reason Comments Nicotine Dependence Encounter Details Date Type Department Care Team (Late st Contact Info) Description 10/14/2020 12:00 PM EDT TH Visit (TeleHealth) [place] [address] Estrella Gomez APRN [facility] [place] [address] Nicotine dependence, cigarettes, uncomplicated; Tobacco abuse counseling [...] Tobacco Cessation Follow Up Estrella Gomez APRN [place], [place] [address] FAX: HPI: Fran Justin is a 55 [...] 4 hours. ??? naloxone (Narcan) 4 mg/actuation [place], Non-Aerosol SPRAY 0.1ML INTO ONE NOSTRIL REPEAT [...] 10/14/20 Thoracic Surgery - Tobacco Treatment Program [facility] documented in this encounter Plan of Treatment Not on file documented as of this encounter Visit Diagnoses Diagnosis Nicotine dependence, cigarettes, uncomplicated Tobacco abuse counseling Counseling on substance use and abuse documented in this encounter Care Teams Parachute Packer Relationship Specialty Start Date End Date Nino Underwood MD [address] [place] [address] PCP - General Family Medicine 09/11/20 03/29/23 documented as of this encounter
--- OUTSIDE RECORDS SUMMARY | 2024-02-03 22:33 | XMS_ITS | Encounter Summary ---
Author Organization [facility] Address [address] [place] [address] Care Team Providers Care Warehouse Receiver Name Role Phone Unavailable Primary Care Provider Unavailabl e Encounter Details Date Type Department Care Team (Latest Contact Info) Description 06/04/1999 17:06 EST Hospital Encounter [facility] Emergency Department - [facility] [address] [place] [address] Emergency, Default, MD Discharge Disposition: Home or [...]
--- OUTSIDE RECORDS SUMMARY | 2024-02-03 22:33 | XMS_ITS | Encounter Summary ---
[place] [address] Care Team Providers Care Center Line Cutter Operator Name Role Phone Nino Underwood MD Primary Care Provider [phone] Reason for Visit * Reason Onset Date Comments Other 10/04/[address] repeat [address] in 3 mos Encounter Details Date Type Department Care Team (Late st Contact Info) Description 10/04/2020 Telephone [place] [phone] Patty Byrnes RN Other (review plan for [...] PM EDT TC to Dr. Stephens's office [phone] Spoke with Dave, Dr. Stephens's nurse Reviewed [...] on filedocumented in this encounter Care Teams Center Line Cutter Operator Relationship Specialty Start Date End Date Nino Underwood MD [address] [place] [address] PCP - General Family Medicine 09/11/20 03/29/23 documented as of this encounter
--- OUTSIDE RECORDS SUMMARY | 2024-02-03 22:33 | XMS_ITS | Encounter Summary ---
Author Organization Replaced By [facility] [place] [address] Care Team Providers Care Legal Administrator Name Role Phone Nino Underwood MD Primary Care Provider [phone] Reason for Referral * Diagnostic Test (Routine) - Closed Specialty Diagnoses / Procedures Referred By Contac t Referred To Contact Radiology Diagnoses [place] Procedures CT Chest w Contrast Maryellen Chandler PA [facility] [place] [address] [facility] [place] [address] Referral ID Status Reason Start Date Expiration Date V isits Requested Visits Authorized [id number] Closed Specialty Service Requested 09/19/2020 03/21/2022 1 1 Reason for Visit * Diagnostic Test (Routine) - Closed Specialty Diagnoses / Procedures Referred By Contac t Referred To Contact Radiology Diagnoses Empy[place] Procedures CT Chest w Contrast Maryellen Chandler PA [facility] [place] [address] [facility] [place] [address] Referral ID Status Reason Start Date Expiration Date V isits Requested Visits Authorized [id number] Closed Specialty Service Requested 09/19/2020 03/21/2022 1 1 Encounter Details Date Type Department Care Team (Latest Contact Info) Description 09/26/2020 6:53 AM EDT - 09/26/2020 11:59 PM EDT Hospital Encounter CT Scan at [facility] [place] [address] Marko Jordan MD [facility] [place] [address] [place] Discharge Disposition: Home Social History Tobacco [...] Every 4 hours. naloxone (Narcan) 4 mg/actuation [place], Non-Aerosol SPRAY 0.1ML INTO ONE NOSTRIL REPEAT [...] who have questions please contact the health critical care paramedic that requested your imaging first. ? Electronically signed by: Simone Scott MD, [facility] ([phone]), at 09/26/2020 9:32 AM Narrative 09/26/2020 9:32 AM EDT EXAMINATION: CT [...] patients who have questions please contactthe health critical care paramedic that requested your imaging first. Electronically signed by: Simone Scott MD, [facility]([phone]), at 09/26/2020 9:32 AM Marko Jordan MD IMG CT ORDERABLES documented [...] mLs documented in this encounter Care Teams Legal Administrator Relationship Specialty Start Date End Date Nino Underwood MD [address] [place] [address] PCP - General Family Medicine 09/11/20 03/29/23 documented as of this encounter
--- OUTSIDE RECORDS SUMMARY | 2024-02-03 22:33 | XMS_ITS | Encounter Summary ---
[place] [address] Care Team Providers Care Design Engineer Agricultural Equipment Name Role Phone Nino Underwood MD Primary Care Provider [phone] Encounter Details Date Type Department Care Team (Late st Contact Info) Description 09/12/2020 11:59 PM EDT Anesthesia Event [address] [place] [phone] Sydney Jung MD [facility] [place] [address] Anesthesia Record Procedure Summary Procedure Name Responsible [...] on filedocumented in this encounter Care Teams Design Engineer Agricultural Equipment Relationship Specialty Start Date End Date Nino Underwood MD [address] [place] [address] PCP - General Family Medicine 09/11/20 03/29/23 documented as of this encounter
--- OUTSIDE RECORDS SUMMARY | 2024-02-03 22:33 | XMS_ITS | Encounter Summary ---
Author Organization [facility] Address [address] [place] [address] Care Team Providers Care Bleach Mixer Name Role Phone Unavailable Primary Care Provider Unavailabl e Encounter Details Date Type Department Care Team (Latest Contact Info) Description 05/18/2008 19:34 EST Hospital Encounter [facility] Emergency Department - [facility] [address] [place] [address] Emergency, Default, MD Discharge Disposition: Home or [...]
--- OUTSIDE RECORDS SUMMARY | 2024-02-03 22:33 | XMS_ITS | Encounter Summary ---
Author Organization [facility] Address [address] [place] [address] Care Team Providers Care Line Haul Owner Operator Name Role Phone Unavailable Primary Care Provider Unavailabl e Encounter Details Date Type Department Care Team (Latest Contact Info) Description 06/06/1999 17:49 EST Hospital Encounter [facility] Emergency Department - [facility] [address] [place] [address] Emergency, Default, MD Discharge Disposition: Home or [...]
--- OUTSIDE RECORDS SUMMARY | 2024-02-03 22:33 | XMS_ITS | Encounter Summary ---
Author Organization [facility] Address [facility] [place] [address] Care Team Providers Care Trekking Guide Name Role Phone Nino Underwood MD Primary Care Provider Reason for Referral * Diagnostic Test (Routine) - Closed Specialty Diagnoses / Procedures Referred By Mavis rhodes Referred To Contact Radiology Diagnoses Empyema Procedures CT Chest w Contrast Maryellen Chandler PA [facility] [place] [address] [facility] [place] [address] Referral ID Status Reason Start Date Expiration Date V isits Requested Visits Authorized [id number] Closed Specialty Service Requested 09/19/2020 03/21/2022 1 1 Reason for Visit * Reason Comments Pneumonia Empyema from [facility] for thoracic surgery * Auth/Cert Specialty Diagnoses / Procedures Referred By Contac t Referred To Contact Diagnoses Empyema Empyema Procedures ER IPI Referral ID Status Reason Start Date Expiration Date Visits Re quested Visits Authorized [id number] 1 1 Encounter Details Date Type Department Care Team (Latest Contact Info) Description 09/11/2020 7:01 PM EDT - 09/17/2020 5:30 PM EDT Hospital Encounter 4 [place] [address] Debbie Salgado MD [facility] [place] [address] Marko Jordan MD [facility] [place] [address] Lobar pneumonia; Empyema Discharge Disposition: Home with [...] recently finished radiation therapy??on 09/06.??He was??admitted at [facility] diagnosed with a RML and RLL??pneumonia on CT chest. He was treated with ceftriaxone and azithromycin.??Since that time he has clinically worsened and developed an increasing O2 requirement. His WBC had risen to 27.??He had a CT??chest on??09/10/20??demonstrating what appears to be a??6cm right lung abscess and??large right-sided empyema causing significant volume loss of the RLL.??He was transferred to [facility] and IR placed a pigtail catheter in his right chest. Hospital Course: Zeeshan Almodovar was admitted to [facility] on 09/11/2020 admitted through theED. He was [...] questions please contact the health career development coordinator that requested your imaging first. Electronically signed by: Sharon Freitas MD, [facility] ([phone]), at 09/17/2020 2:30 PM XR Chest PA & Lateral (Generic) Final [...] questions please contact the health career development coordinator that requested your imaging first. Electronically signed by: Jaxon Espinosa DO, [facility] ([phone]), at 09/17/2020 11:40 AM XR Chest PA & Lateral (Generic) Final [...] questions please contact the health career development coordinator that requested your imaging first. Guided Drain Chest Tube/Pleural Drain Final Result Impression: Successful CT-guided drain placement in right anteroinferior parafissural collection. Plan/Disposition: 1) To Angio recovery room, may discharge to thoracic surgery when meets criteria. 2) Forward flush every 12 hours with 5 mL of normal saline. Record outputs daily. [facility] Specialist(s): Resident/Fellow: Dr. Roosevelt Garcia Attending: Dr. Jaxon [...] questions please contact the health career development coordinator that requested your imaging first. Electronically signed by: Jaxon Espinosa DO, [facility] ([phone]), at 09/16/2020 1:[address] Chest w Contrast Final Result 1. Decreased [...] questions please contact the health career development coordinator that requested your imaging first. Electronically signed by: Sharon Freitas MD, [facility] ([phone]), at 09/15/2020 11:45 AM XR Chest PA & Lateral (Generic) Final [...] questions please contact the health career development coordinator that requested your imaging first. Electronically signed by: Shaun Landis MD, [facility] ([phone]), at 09/15/2020 5:58 AM XR Chest PA & Lateral (Generic) Final [...] questions please contact the health career development coordinator that requested your imaging first. Electronically signed by: Naya Oliver MD, [facility] ([phone]), at 09/14/2020 9:57 AM XR Chest PA & Lateral (Generic) Final [...] questions please contact the health career development coordinator that requested your imaging first. Electronically signed by: Shaun Landis MD, [facility] ([phone]), at 09/13/2020 6:[address] Chest wo Contrast (Generic) Final Result A [...] questions please contact the health career development coordinator that requested your imaging first. Electronically signed by: Simone Scott MD, [facility] ([phone]), at 09/12/2020 12:26 PM XR Chest One View Final Result * Interval [...] questions please contact the health career development coordinator that requested your imaging first. Electronically signed by: Shaun Landis MD, [facility] ([phone]), at 09/12/2020 1:36 AM Request For 2nd Read CT Chest Final [...] questions please contact the health career development coordinator that requested your imaging first. Electronically signed by: Simone Scott MD, [facility] ([phone]), at 09/11/2020 7:59 PM Film Library- Storage Only CT Chest Final [...] a nurse in the Thoracic Clinic at [phone]. After hours or on weekends or holidays please call: [phone] and ask to speak to the Thoracic Surgeon ground control approach technician. Exercise & Activity Level: As you recover [...] the Thoracic Clinic or the Thoracic Surgeon ground control approach technician after hours. Please take over the counter [...] Complete By Expires CT Chest wwo Contrast [ATJ711 Custom] 09/26/2020 (Approximate) 09/17/2021 Process Instructions: Scheduling Instructions: Questions: Clinical information / hill questions: R. lung abscess eval, PTX, effusion, changes, comparison Do you want to report a missing reason for exam?: Where will study be performed?: External Stat read required?: Does patient require sedation?: GA rationale: Date of injury if applicable: Provider Contact Information: Primary Care Provider: Nino Underwood MD [phone] Discharge References/Attachments: Discharge References/Attachments None For questions regarding this document or issues relating to this hospitalization on the Thoracic Surgery Service, please contact Dr. Jordan's office at . Signed: MADELAINE Lowry 09/17/2020 Thoracic Surgery [facility] CC: PCP: Nino Underwood MD Referring: Dale Sanchez Md [address] [place] [address] documented in this encounter Discharge Instructions * [...] a nurse in the Thoracic Clinic at [phone]. After hours or on weekends or holidays please call: [phone] and ask to speak to the Thoracic [...] the Thoracic Clinic or the Thoracic Surgeon ground control approach technician after hours. Please take over the counter [...] Follow up appointments: You will see Dr Jrodan in two weeks with a chest Xray within one hour of the appointment. A letter will be mailed to you confirming your appointment information. No future appointments. * Attachments The following attachments cannot be sent through Care Everywhere. * Chest Tube Removal: Post-op (Sami) documented in this encounter Medications at Time of Discharge Medication Sig Dispensed Refills Start Date End Date Ensure Liquid DRINK 1 CAN BY MOUTH THREE TIMES A DAY 08/09/2020 Trelegy Ellipta 100-62.5-25 mcg Disk with Device INHALE ONE PUFF BY MOUTH EVERY DAY 06/26/2020 cyanocobalamin, Vitamin B-12, (Vitamin B-12) 1,000 mcg Tablet Take 1,000 mcg by mouth Daily. 01/23/2020 naloxone (Narcan) 4 mg/actuation [place], Non-Aerosol SPRAY 0.1ML INTO ONE NOSTRIL REPEAT [...] Note Patient Name: Zeeshan Rios Nhan : [id number] MR#: [id number] Admit Date: 09/11/2020 7:01 PM Hospital Day 6 days Narrative: Visited to introduce and assess acceptance of [employer] Consultant services. Pt was not available and I [...] 09/17/2020 3:51 PM EDTSummary: [facility] Vascular Access Service Patient Guidelines for [...] agreement with plan. Anusha Velasco RN Case Hot Top Liner Helper of Care Management Pager: [phone] Ext: [phone] * Mitchell Vega MD - 09/17/2020 8:35 AM EDT [facility] Department of Thoracic Surgery Inpatient Progress Note [...] to Hosp-Admission (Current) from 09/11/2020 in 4 [facility] Weight 56 kg (123 lb 8 [...] -- No results for input(s): PHART, PO2ART, UWM8ZXH, LACTATEART, BEART in the last 72 hours. [...] Vega MD 09/17/2020 Thoracic Surgery Service Pager [phone] Associated attestation - Marko Jordan MD - [...] EDT Nutrition Progress Note Patient admitted to [facility] with pleuritic chest pain and SOB [...] significant volume loss of RLL. Transferred to [facility] for further management. Pt relevant medical history [...] encounter: 56 kg (123 lb 8 oz). [place] Body Weight: 59.2 kg (130lbs) Usual Body Weight: pt reports 145# Weight loss: pt reports 20 lb weight loss in last 6 months, shocked he was 118# today. 27 lbs lost per chart and pt report (18.6% - clinically significant) Wt Readings from Last 10 Encounters: 09/15/20 56 kg (123 lb 8 oz) Assessment: Estimated needs: (re-calculated) Calories: 2148-0912 (30 - 35 kcal/kg) - wt gain Protein: 71-89 grams (1.2-1.5 g/kg) Nutrition Focused Physical Exam (NFPE): Performed on 09/12 by CL. Subcutaneous fat loss at Orbital region: Moderate Upper arm region (triceps/biceps): Mild Thoracic and lumbar region (ribs, lower back and maxillary line): Not assessed Lean muscle loss to Bahai region (temporalis muscle): Severe Clavicle bone region [...] up while inpatient Sonia Kirby RD Pager #:[phone] * Brianna Gama MD - 09/16/2020 1:37 PM EDT [facility] Department of Thoracic Surgery Inpatient Progress Note Patient Name: Zeeshan Almodovar Patient : 1965 Patient Patient Location: 403/403-A Attending Surgeon: DEBBIE SALGADO JOSEPH D ID: Zeeshan Almodovar is a 55 y.o. 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 who recently finished radiation therapy on 09/06. He was admitted at [facility] diagnosed with a RML and RLL [...] the RLL. He was trans ferred to [facility] and IR placed a pigtail catheter in [...] to Hosp-Admission (Current) from 09/11/2020 in 4 [facility] Weight 56 kg (123 lb 8 [...] Gama MD 09/16/2020 Thoracic Surgery Service Pager [phone] Associated attestation - Marko Jordan MD - [...] being used. Call placed to Uriel, Nursing Bearing Ring Assembler at [facility] for any information. He could find no documentation on why it wasn't beingused nor could he find a date on when it was last accessed. Primary RN notified via secure chat. * Julia Andrade RN - 09/16/2020 11:52 AM EDT [facility] Name: ZEESHAN ALMODOVAR Date of : 1965 AGE: 55 y.o. Address: [address] [place] [phone] (home) Mobile: No relevant phone numbers on [...] RN - 09/16/2020 10:55 AM EDT The patient/consumer sales representative has been provided a list of Home Health Agencies/DME vendors which servetheir preferred geographic area. A letter describing our affiliations was reviewed with them and they were educated about their right to choose where referrals are placed. Provided patient with CMS Star Quality Rating for Home care Patient requests referral to : [facility]. PHONE: [phone] FAX: [phone] Expected date of discharge: 09/18/2020 Referral routed to the Aerotriangulation Specialist for matching with agency/vendor and to provide any required information. * Brianna Gama MD - 09/15/2020 9:28 AM EDT [facility] Department of Thoracic Surgery Inpatient Progress Note Patient Name: Zeeshan Almodovar Patient : 1965 Patient Patient Location: 403/[facility]-A Attending Surgeon: DEBBIE SALGADO JOSEPH D ID: Zeeshan Almodovar is a 55 y.o. 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 who recently finished radiation therapy on 09/06. He was admitted at [facility] diagnosed with a RML and RLL [...] the RLL. He was trans ferred to [facility] and IR placed a pigtail catheter in [...] to Hosp-Admission (Current) from 09/11/2020 in 4 [facility] Weight 56 kg (123 lb 8 [...] Gama MD 09/15/2020 Thoracic Surgery Service Pager [phone] Associated attestation - Aniket Hernandez MD - [...] Mcintyre PA - 09/14/2020 5:58 AM EDT [facility] Department of Thoracic Surgery Inpatient Progress Note Patient Name: Zeeshan Almodovar Patient : 1965 Patient Patient Location: -A Attending Surgeon: DEBBIE SALGADO JOSEPH D ID: Zeeshan Almodovar is a 55 y.o. 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 who recently finished radiation therapy on 09/06. He was admitted at [facility] diagnosed with a RML and RLL [...] the RLL. He was trans ferred to [facility] and IR placed a pigtail catheter in [...] to Hosp-Admission (Current) from 09/11/2020 in 1 [facility] Weight 53.9 kg (118 lb 12.8 [...] discussed with Thoracic Surgery attending, Dr. Hernandez. MADELAINE Mcbride 09/14/2020 Thoracic Surgery Service Pager [phone] Associated attestation - Aniket Hernandez MD - [...] Jung MD 09/13/2020 Acute Pain Service Pager: [phone] APS Attending ([facility]) Patient seen on daily rounds, I agree [...] Agency Referrals: None anticipated ( if needed [facility] is choice) Transportation: family or friend will provide Barriers to discharge: None anticipated Plan going forward: CM will continue to follow and assist with discharge planning and coordination of care as indicated. Anticipated Date of Discharge: 09/16/20 Anusha Velasco RN Case Hot Top Liner Helper of Care Management Pager: [phone] Ext: [phone] * Maryellen Chandler PA - 09/13/2020 7:24 AM EDT [facility] Department of Thoracic Surgery Inpatient Progress Note Patient Name: Zeeshan Almodovar Patient : 1965 Patient Patient Location: Attending Surgeon: DEBBIE SALGADO JOSEPH D ID: Zeeshan Almodovar is a 55 y.o. 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 who recently finished radiation therapy on 09/06. He was admitted at [facility] diagnosed with a RML and RLL [...] the RLL. He was trans ferred to [facility] and IR placed a pigtail catheter in [...] to Hosp-Admission (Current) from 09/11/2020 in 1 [facility] Weight 53.9 kg (118 lb 12.8 [...] MADELAINE Lowry 09/13/2020 Thoracic Surgery Service Pager [phone] Associated attestation - Marko Jordan MD - [...] Add bowel regimen today as well. Marko Jordan MD 09/13/2020 * Kallie Huang, RD - 09/12/2020 1:19 PM EDT Nutrition Consult Note Patient admitted to [facility] with pleuritic chest pain and SOB [...] significant volume loss of RLL. Transferred to [facility] for further management. Pt relevant medical history [...] encounter: 53.9 kg (118 lb 12.8 oz). [place] Body Weight: 59.2 kg (130lbs) Usual Body Weight: pt reports 145# Weight loss: pt reports 20 lb weight loss in last 6 months, shocked he was 118# today. 27 lbs lost per chart and pt report (18.6% - clinically significant) Wt Readings from Last 10 Encounters: 09/12/20 53.9 kg (118 lb 12.8 oz) Assessment: Estimated needs: Calories: 7062-4620 (25-30 kcal/kg IBW) Protein: 71-89 grams (1.2-1.5 g/kg) Nutrition Focused Physical Exam (NFPE): Performed on 09/12 by CL. Subcutaneous fat loss at Orbital region: Moderate Upper arm region (triceps/biceps): Mild Thoracic and lumbar region (ribs, lower back and maxillary line): Not assessed Lean muscle loss to Bahai region (temporalis muscle): Severe Clavicle bone region (pectoralis major): Severe Dorsal hand (interosseous muscle): Moderate Shoulder (deltoid): Severe Scapular bone region (latissimus dorsi, trapezius muscles): Not assessed Thigh region (quadriceps muscle): Not assessed Posterior calf region (gastrocnemius muscle): Moderate Fluid accumulation: Not assessed Nutrition intake and intake history/Interview: Pt reports that he's starting to eat normal again this adm (at [facility] and [facility]). Reports FARM IMPLEMENT MECHANIC he was eating 1 meal/d because of [...] reports he walks a lot for exercise. Finance Professional encouraged him to eat as much of [...] up while inpatient Kallie Huang RD Pager #:[phone] * Maryellen Chandler PA - 09/12/2020 11:00 AM EDT [facility] Department of Thoracic Surgery Inpatient Progress Note Patient Name: Zeeshan Almodovar Patient : 1965 Patient Patient Location: -A Attending Surgeon: DEBBIE SALGADO JOSEPH D ID: Zeeshan Almodovar is a 55 y.o. 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 who recently finished radiation therapy on 09/06. He was admitted at [facility] diagnosed with a RML and RLL [...] the RLL. He was trans ferred to [facility] and IR placed a pigtail catheter in [...] to Hosp-Admission (Current) from 09/11/2020 in 1 [facility] Weight 53.9 kg (118 lb 12.8 [...] RNA Not Detected Not Detected SARS-CoV-2 Source LATHE PULLER Swab Cell Count Body Fluid Pleural Fluid [...] MADELAINE Lowry 09/12/2020 Thoracic Surgery Service Pager [phone] documented in this encounter H&P Notes * [...] Gatherings with Friends and Family: ??? Attends Adventist Services: ??? Active Member of Clubs or [...] Gatherings with Friends and Family: ??? Attends Adventist Services: ??? Active Member of Clubs or [...] Hong MD - 09/11/2020 7:11 PM EDT [facility] Department of Thoracic Surgery Admission Note HHPI: Zeeshan Almodovar is a 55 y.o. male with a hx of lymphocyte rich Hodgkin's lymphoma and COPD (nohome O2), recent 2PPD smoker. who recently finished radiation therapy on 09/06. He was admitted at [facility] with pleuritic chest pain and shortness [...] of the RLL. He was transferred to [facility] for further management. In the ED, he [...] Gatherings with Friends and Family: ??? Attends Adventist Services: ??? Active Member of Clubs or [...] therapy on 09/06. He was transferred to [facility] after he developed a parapneumonic effusion while at OSH being treated for pneumonia. He had a CT chest done there on 09/10/20 dem onstrating what appears to be a 6cm right lung abscess and large right-sided empyema causing significant volume loss of the RLL. This was associated with increasing leukocytosis to 27. At [facility] he labs are similar. He is afebrile and saturating well on 2.5L [place]. Bedside US shows a multiloculated right sided empyema. We will plan for admission to thoracic, [facility]/zosyn, placement of pigtail chest tubetonight, and potential [...] per thoracic surgery Admission to surgery Debbie Salgado MD 09/11/20 2225 * Nicole Clemente MD - 09/11/2020 7:03 PM EDT ED Resident Note HPI: Zeeshan Almodovar is a 55 y.o. male with PMH s/f Hodgkin's Lymphoma (s/p radiation 09/06/20), COPD who presents to the Emergency Department as a transfer from [facility] for evaluation by thoracic surgery for right-sided empyema. Mr. Almodovar reports developing right-sided back pain, chest pain on 09/07, prompting him to be seen at [facility], where he was diagnosed with right-sided pneumonia. Over his hospital course he developed a new oxygen requirement, as well as leukocytosis to 27k. Repeat CT chest was obtained demonstrating right- sided empyema with right lower lobe collapse. Patient was accepted in transfer by [facility] thoracic surgery. Mr. Almodovar states that he [...] HL s/p radiation on 09/06/20 transferred from [facility] for management of right-sided empyema. Vitals [...] recently finished radiation who isan inpatient at [facility] for several days with a diagnosis [...] COPD (on chronic oxygen) who presented to [facility] for chest pain and dyspnea on [...] increased in size. He was transferred to [facility] for Thoracic surgery evaluation and need for [...] history. Social History and Habits: Lives in [place] with ayleen. Denies alcohol (sober for 2 [...] and COPD (on chronic oxygen) transferred from [facility] with empyema. Patient was on Unasyn [...] will sign off anticipating discharge. Please page [phone] if further consultation required. Patsy Josue, DO Infectious Disease Fellow Pager [phone] I interviewed, examined and discussed the patient [...] NOTE: OUTCOME SUMMARY: @2230: pt transferred from [facility] to floor in the bed. A+O x 4. VSS except mild tachycardia w/getting up to bathroom noted. Pain was controlled with scheduled Tylenol and I.V Toradol. Voided adequateamounts. Right lateral chest tube to -20 mm H2O suction draining small amount of serosang drainage.Scheduled I.V zosyn and vancomycin given as ordered. Pt reported constipation upon arrival. on call pharmacy technician paged for suppository per pt request. Suppository given at 0007 with small amount of bowel movement x1 reported. Bed alarm on at all times for safety. Chest x-ray done in the call centre supervisor. Will continue to monitor. PLAN MOVING FORWARD: [...] PM EDT Clinical Pharmacist Note-Vanc Zeeshan Almodovar [id number] 1965 Zeeshan Almodovar is a 55 y.o. [...] have. Alternately, during off-hours you may call [phone] to contact a pharmacist. KIM AGUILAR RPH [...] IV antibioticsas ordered. Ambulated in room with FOUNDATION RELATIONS DIRECTOR to bathroom. Resting between care. PLAN MOVING [...] COVID test: Lab Results Component Value Date [id number] Not Detected 09/11/2020 Past medical History: History [...] SO would be surrogate decision maker per [place] surrogate decision making law. (Only good for 90 days) Any patient receiving care at [facility] must abide by [place] law. The hierarchy for surrogate decision making [...] (i) The agent with financial power of admitted attorneys or a conservator appointed in accordance with [...] Home Address Confirmed as: [address] [facility] [address] Social & Family Supports: All names listed [...] Listed Primary Care Provider: Nino Underwood MD [phone] Patient/Caregiver Goals of Treatment: I want to go home Potential Needs for Transition of Care: none Agency Referrals: None at this time ( [facility] is [facility] ) Transportation: [...] of care planning. Anusha Velasco RN Case Hot Top Liner Helper of Care Management Pager: [phone] Ext: [phone] * Plan of Care - Naya Villasenor [...] mL Mini-Bag Plus, 3.375 g, Intravenous, [facility]H [facility] Bryan A, MD, Last Rate: 12.5 mL/hr at 09/12/20 1327, 3.375 g at 09/12/20 1327 ??? ketorolac (Toradol) (15 mg/mL) injection 15 mg, 15 mg, Intravenous, Q6H [facility], Conor Hong MD, 15 mg at 09/12/20 [...] Gatherings with Friends and Family: ??? Attends Adventist Services: ??? Active Member of Clubs or [...] above This pt sees Dr. Townsend from [facility] for primary care. I would note anticipate given the current nature of this present illness/procedure that the pt will need to utilize pain medicaiton on discharge.However, if patient's hospital course changes and he needs additional procedures, the primary team can titrate patient's inpatient opioid to effect. Consult service will continue to follow patient. Recommendations are above. Alondra Jung MD 09/12/2020 beeper # [phone] documented in this encounter Plan of Treatment [...] 09/12/2020 12:45 AM EDT RAPID COVID-19 PCR ([facility]) STAT 09/11/2020 10:30 PM EDT HC [...] questions please contact the health career development coordinator that requested your imaging first. ? Electronically signed by: Simone Scott MD, [facility] ([phone]), at 09/26/2020 9:32 AM Narrative 09/26/2020 9:32 [...] have questions please contactthe health career development coordinator that requested your imaging first. Electronically signed by: Simone Scott MD, [facility]([phone]), at 09/26/2020 9:32 AM Marko Jordan MD IMG CT ORDERABLES * [...] questions please contact the health career development coordinator that requested your imaging first. ? Electronically signed by: Sharon Freitas MD, [facility] ([phone]), at 09/17/2020 2:30 PM Narrative 09/17/2020 2:30 PM EDT EXAMINATION: XR [...] have questions please contactthe health career development coordinator that requested your imaging first. Electronically signed by: Sharon Freitas MD, [facility]([phone]), at 09/17/2020 2:30 PM Marko Jordan MD IMG DX ORDERABLES * [...] questions please contact the health career development coordinator that requested your imaging first. ? Electronically signed by: Jaxon Espinosa DO, [facility] ([phone]), at 09/17/2020 11:40 AM Narrative 09/17/2020 11:40 AM EDT EXAMINATION: XR [...] have questions please contactthe health career development coordinator that requested your imaging first. Electronically signed by: Jaxon Espinosa DO, [facility]([phone]), at 09/17/2020 11:40 AM Marko Jordan MD IMG DX ORDERABLES * [...] questions please contact the health career development coordinator that requested your imaging first. ? Narrative [...] have questions please contactthe health career development coordinator that requested your imaging first. Marko Jordan MD IMG DX ORDERABLES * (ABNORMAL) Differential, Automated (09/17/2020 3:57 AM EDT) Neutrophil % 84.9 % [facility] Neutrophil Absolute 23.10(H) 1.70 - 6.10 x10(3)/mc L [facility] Lymph % 5.6 % [facility] Lymphocytes Abs 1.5 0.9 - 3.2 x10(3)/mc L [facility] Monocyte % 6.3 % [facility] Monocyte Abs 1.7(H) 0.3 - 0.9 x10(3)/mc L [facility] Eos % 2.0 % [facility] Eosinophils Abs 0.5(H) 0.0 - 0.4 x10(3)/mc L [facility] Basophil % 0.2 % [facility] Baso Absolute 0.1 0.0 - 0.1 x10(3)/mc L [facility] Immature Gran % 1.00 % [facility] Comment: Immature granulocytes(IG's)percentage and absolute count will include metamyelocytes, myelocytes, and promyelocytes. Blood smears from CBCs yielding IG's will be scanned manually for concordance. If this scan disagrees with the automated IG or if promyelocytes are noted, a manual differential will be performed. Immature Gran Absolute 0.27(H) 0.00 - 0.04 x10(3)/mc L [facility] Blood specimen (specimen) 09/17/2020 3:57 AM EDT 09/17/2020 4:06 AM EDT Narrative Resulting Agency Comment Spec In Lab Brianna Gama MD HEMATOLOGY ORDERABLE S [facility] [place] [place] [address] * (ABNORMAL) Hemogram (09/17/2020 3:57 AM EDT) White Blood Cell 27.2(H) 4.0 - 9.5 x10(3)/mc L [facility] Red Blood Cell 2.51(L) 4.58 - 5.54 x10(6)/mc L [facility] Hemoglobin 7.9(L) 13.7 - 16.5 gm/dL [facility] Hematocrit 24.2(L) 40.5 - 48.5 % [facility] Mean Cell Volume 96.4(H) 82.9 - 93.1 fL [facility] Mean Cell Hemoglobin 31.5 27.5 - 32.1 pg [facility] Mean Cell Hemoglobin Concentration 32.6 32.0 - 35.7 gm/dL [facility] Platelet 599(H) 145 - 357 x10(3)/mc L [facility] RDW Standard Deviation 50.2(H) 36.0 - 45.0 fL [facility] RDW coefficient of variation 14.4(H) 11.4 - 13.8 % [facility] Mean Platelet Volume 8.7 7.6 - 12.9 fL [facility] NRBC% auto 0.0 % [facility] NRBC Absolute 0.000 0.000 - 0.000 x10(3)/mc L [facility] Blood specimen (specimen) 09/17/2020 3:57 AM EDT 09/17/2020 4:06 AM EDT Narrative Resulting Agency Comment Spec In Lab Brianna Gama MD HEMATOLOGY ORDERABLE S Performing Organization Address City/[facility]/ZIP Co de Phone Number [facility] [place] [address] * Phosphorus (09/17/2020 3:57 AM EDT) Phosphorus 3.7 2.5 - 4.5 mg/dL [facility] Blood specimen (specimen) 09/17/2020 3:57 AM EDT 09/17/2020 4:06 AM EDT Narrative Resulting Agency Comment Spec In Lab Marko Jordan MD CHEMISTRY ORDERABLE S Performing Organization Address [facility]/ZIP Co de Phone Number [facility] [place] [address] * Magnesium (09/17/2020 3:57 AM EDT) Magnesium 0.92 0.69 - 1.07 mmol/L [facility] Blood specimen (specimen) 09/17/2020 3:57 AM EDT 09/17/2020 4:06 AM EDT Narrative Resulting Agency Comment Spec In Lab Marko Jordan MD CHEMISTRY ORDERABLE S Performing Organization Address [facility]/ZIP Co de Phone Number [facility] [place] [place] [address] * (ABNORMAL) Basic Metabolic Panel (non-fasting) (09/17/2020 3:57 AM EDT) Glucose 102 65 - 199 mg/dL [facility] Comment:Diabetes: >=200 mg/d L plus symptoms Blood Urea Nitrogen 13 10 - 20 mg/dL [facility] Creatinine 0.52(L) 0.80 - 1.50 mg/dL [facility] Sodium 140 135 - 145 mmol/L [facility] Potassium 4.2 3.5 - 5.0 mmol/L [facility] Comment: Please note: ??Patients with WBC >100,000 may have falsely elevated Potassium levels. ??For accurate Potassium quantification in these patients send serum separator tube (gold top) for subsequent determinations. ??Contact the Clinical Chemistry Laboratory if there are any questions. Chloride 106 98 - 107 mmol/L [facility] Carbon Dioxide 28 22 - 31 mmol/L [facility] Anion Gap 6 5 - 15 mmol/L [facility] Calcium 8.2(L) 8.5 - 10.5 mg/dL [facility] Est Glomerular Filtration Rate 118 >=60 mL/min/1. 73 m?? [facility] Comment: This patient? s estimated glomerular [...] Lab Marko Jordan MD CHEMISTRY ORDERABLE S [facility] [place] [address] * CT Guided Drain Lung (09/16/2020 12:59 PM EDT) Anatomical Region Laterality Modality Computed Tomogra phy Impressions 09/16/2020 1:29 PM EDT Impression: Successful CT-guided drain placement in right anteroinferior parafissural collection. Plan/Disposition: 1) To Angio recovery room, may discharge to thoracic surgery when meets criteria. 2) Forward flush every 12 hours ??with 5 mL of normal saline. Record outputs daily. [facility] Specialist(s): Resident/Fellow: Dr. Roosevelt Garcia Attending: Dr. Jaxon [...] questions please contact the health career development coordinator that requested your imaging first. ? Electronically signed by: Jaxon Espinosa DO, [facility] ([phone]), at 09/16/2020 1:29 PM Narrative 09/16/2020 1:29 PM EDT RADIOLOGY PROCEDURE [...] access tract was dilated and a 6 Romansh locking pigtail drainage catheter was placed. Postplacement [...] of purulent fluid removed. Marko Jordan MD [facility] [place] * Anaerobic Culture (09/16/2020 12:30 PM EDT) Anaerobic Culture No anaerobic organisms isolated [facility] Pleural fluid specimen (specimen) 09/16/2020 12:30 PM EDT 09/16/2020 1:35 PM EDT Comment:RIGHT LUNG Narrative Resulting Agency Comment Spec In Lab Marko Jordan MD MICROBIOLOGY - GENE RAL ORDERABLES Performing Organization Address [facility] Co de Phone Number [facility] [place] [address] * (ABNORMAL) Body Fluid Culture, Aerobic (09/16/2020 12:30 PM EDT) Body Fluid Culture Moderate Streptococcus milleri, anginosis group(A) [facility] Gram Stain Many Neutrophils seen Many Gram Positive Cocci seen Results called to and read back by COLEMAN Berry RN - DC ??09/16/20 15:07:44 (A) [facility] Organism Streptococcus milleri, anginosis group(A) [facility] Organism Gram Positive Cocci(A) [facility] Pleural fluid specimen (specimen) 09/16/2020 12:30 [...] - GENE RAL ORDERABLES Performing Organization Address [facility] Co de Phone Number [facility] [place] [address] * (ABNORMAL) Differential, Automated (09/16/2020 3:46 AM EDT) Neutrophil % 80.5 % [facility] Neutrophil Absolute 17.62(H) 1.70 - 6.10 x10(3)/ L [facility] Lymph % 8.5 % [facility] Lymphocytes Abs 1.9 0.9 - 3.2 x10(3)/ L [facility] Monocyte % 7.1 % [facility] Monocyte Abs 1.6(H) 0.3 - 0.9 x10(3)/ L [facility] Eos % 2.5 % [facility] Eosinophils Abs 0.5(H) 0.0 - 0.4 x10(3)/[facility] Basophil % 0.3 % [facility] Baso Absolute 0.1 0.0 - 0.1 x10(3)/[facility] Immature Gran % 1.10 % [facility] Comment: Immature granulocytes(IG's)percentage and absolute count will include metamyelocytes, myelocytes, and promyelocytes. Blood smears from CBCs yielding IG's will be scanned manually for concordance. If this scan disagrees with the automated IG or if promyelocytes are noted, a manual differential will be performed. Immature Gran Absolute 0.24(H) 0.00 - 0.04 x10(3)/ L [facility] Blood specimen (specimen) 09/16/2020 3:46 AM EDT 09/16/2020 3:52 AM EDT Narrative Resulting Agency Comment Spec In Lab Brianna Gama MD HEMATOLOGY ORDERABLE S [facility] [place] [address] * (ABNORMAL) Hemogram (09/16/2020 3:46 AM EDT) White Blood Cell 21.9(H) 4.0 - 9.5 x10(3)/ L [facility] Red Blood Cell 2.56(L) 4.58 - 5.54 x10(6)/mc L [facility] Hemoglobin 8.1(L) 13.7 - 16.5 gm/dL [facility] Hematocrit 25.1(L) 40.5 - 48.5 % [facility] Mean Cell Volume 98.0(H) 82.9 - 93.1 fL [facility] Mean Cell Hemoglobin 31.6 27.5 - 32.1 pg [facility] Mean Cell Hemoglobin Concentration 32.3 32.0 - 35.7 gm/dL [facility] Platelet 583(H) 145 - 357 x10(3)/mc L [facility] RDW Standard Deviation 50.4(H) 36.0 - 45.0 [facility] RDW coefficient of variation 14.3(H) 11.4 - 13.8 % [facility] Mean Platelet Volume 8.5 7.6 - 12.9 [facility] NRBC% auto 0.0 % [facility] NRBC Absolute 0.000 0.000 - 0.000 x10(3)/mc L [facility] Blood specimen (specimen) 09/16/2020 3:46 AM EDT 09/16/2020 3:52 AM EDT Narrative Resulting Agency Comment Spec In Lab Brianna Gama MD HEMATOLOGY ORDERABLE S Performing Organization Address City/State/[facility] Co de Phone Number [facility] [place] [address] * CT Chest w Contrast (09/15/2020 10:34 [...] questions please contact the health career development coordinator that requested your imaging first. ? Electronically signed by: Sharon Freitas MD, [facility] ([phone]), at 09/15/2020 11:45 AM Narrative 09/15/2020 11:45 AM EDT EXAMINATION: CT [...] right upper lobe is unchanged (series 3, [id number]). Improved aeration/expansion of right lower lobe from [...] have questions please contactthe health career development coordinator that requested your imaging first. Electronically signed by: Sharon Freitas MD, [facility]([phone]), at 09/15/2020 11:45 AM Marko Jordan MD IMG CT ORDERABLES * [...] questions please contact the health career development coordinator that requested your imaging first. ? Electronically signed by: Shaun Landis MD, [facility] ([phone]), at 09/15/2020 5:58 AM Narrative 09/15/2020 5:58 AM EDT EXAMINATION: XR [...] have questions please contactthe health career development coordinator that requested your imaging first. Electronically signed by: Shaun Landis MD, [facility]([phone]), at 09/15/2020 5:58 AM Marko Jordan MD IMG DX ORDERABLES * Scan, Peripheral Blood (09/15/2020 3:17 AM EDT) Pathologist [facility] Plat estimate Increased [facility] RBC Morphology Abnormal [facility] Hypochromia Slight [facility] Target Cells 1-5 /HPF [facility] Blood specimen (specimen) 09/15/2020 3:17 AM EDT 09/15/2020 3:22 AM EDT Narrative Resulting Agency Comment Spec In Lab Conor Hong MD HEMATOLOGY ORDERABL ES [facility] [place] [address] * (ABNORMAL) Differential, Automated (09/15/2020 3:17 AM EDT) [facility] Neutrophil % 86.2 % [facility] Neutrophil Absolute 24.33(H) 1.70 - 6.10 x10(3)/mc L [facility] Lymph % 5.7 % [facility] Lymphocytes Abs 1.6 0.9 - 3.2 x10(3)/mc L [facility] Monocyte % 5.5 % [facility] Monocyte Abs 1.6(H) 0.3 - 0.9 x10(3)/[facility] Eos % 1.1 % [facility] Eosinophils Abs 0.3 0.0 - 0.4 x10(3)/[facility] Basophil % 0.2 % [facility] Baso Absolute 0.0 0.0 - 0.1 x10(3)/[facility] Immature Gran % 1.30 % [facility] Comment: Immature granulocytes(IG's)percentage and absolute count will include metamyelocytes, myelocytes, and promyelocytes. Blood smears from CBCs yielding IG's will be scanned manually for concordance. If this scan disagrees with the automated IG or if promyelocytes are noted, a manual differential will be performed. Immature Gran Absolute 0.37(H) 0.00 - 0.04 x10(3)/[facility] Blood specimen (specimen) 09/15/2020 3:17 AM EDT 09/15/2020 3:22 AM EDT Narrative Resulting Agency Comment Spec In Lab Conor Hong MD HEMATOLOGY ORDERABL ES [facility] [place] [address] * (ABNORMAL) Hemogram (09/15/2020 3:17 AM EDT) White Blood Cell 28.2(H) 4.0 - 9.5 x10(3)/[facility] Red Blood Cell 2.92(L) 4.58 - 5.54 x10(6)/[facility] Hemoglobin 9.1(L) 13.7 - 16.5 gm/dL [facility] Hematocrit 28.0(L) 40.5 - 48.5 % [facility] Mean Cell Volume 95.9(H) 82.9 - 93.1 fL [facility] Mean Cell Hemoglobin 31.2 27.5 - 32.1 pg [facility] Mean Cell Hemoglobin Concentration 32.5 32.0 - 35.7 gm/dL [facility] Platelet 602(H) 145 - 357 x10(3)/mc L [facility] RDW Standard Deviation 48.6(H) 36.0 - 45.0 fL [facility] RDW coefficient of variation 13.9(H) 11.4 - 13.8 % [facility] Mean Platelet Volume 8.5 7.6 - 12.9 fL [facility] NRBC% auto 0.0 % [facility] NRBC Absolute 0.000 0.000 - 0.000 x10(3)/mc L [facility] Blood specimen (specimen) 09/15/2020 3:17 AM EDT 09/15/2020 3:22 AM EDT Narrative Resulting Agency Comment Spec In Lab Conor Hong MD HEMATOLOGY ORDERABL ES [facility] [place] [address] * (ABNORMAL) Basic Metabolic Panel (non-fasting) (09/15/2020 3:17 AM EDT) Glucose 122 65 - 199 mg/dL [facility] Comment:Diabetes: >=200 mg/d L plus symptoms Blood Urea Nitrogen 23(H) 10 - 20 mg/dL [facility] Creatinine 0.55(L) 0.80 - 1.50 mg/dL [facility] Sodium 138 135 - 145 mmol/L [facility] Potassium 4.3 3.5 - 5.0 mmol/L [facility] Comment: Please note: ??Patients with WBC >100,000 may have falsely elevated Potassium levels. ??For accurate Potassium quantification in these patients send serum separator tube (gold top) for subsequent determinations. ??Contact the Clinical Chemistry Laboratory if there are any questions. Chloride 105 98 - 107 mmol/L [facility] Carbon Dioxide 25 22 - 31 mmol/L [facility] Anion Gap 8 5 - 15 mmol/L [facility] Calcium 8.0(L) 8.5 - 10.5 mg/dL [facility] Est Glomerular Filtration Rate 116 >=60 mL/min/1. 73 m?? [facility] Comment: This patient? s estimated glomerular [...] Lab Marko Jordan MD CHEMISTRY ORDERABLE S [facility] [place] [address] * Vancomycin, trough (09/14/2020 5:25 PM EDT) Vancomycin, Trough 17.3 mg/L [facility] Comment: Therapeutic range for complicated infections [...] Marko Jordan MD CHEMISTRY ORDERABLE S [facility] [place] [address] * XR Chest PA & Lateral (Generic) [...] questions please contact the health career development coordinator that requested your imaging first. ? Narrative [...] have questions please contactthe health career development coordinator that requested your imaging first. Marko Jordan MD IMG DX ORDERABLES * (ABNORMAL) Differential, Automated (09/14/2020 3:41 AM EDT) Neutrophil % 78.9 % [facility] Neutrophil Absolute 17.25(H) 1.70 - 6.10 x10(3)/mc L [facility] Lymph % 7.9 % [facility] Lymphocytes Abs 1.7 0.9 - 3.2 x10(3)/ L [facility] Monocyte % 8.7 % [facility] Monocyte Abs 1.9(H) 0.3 - 0.9 x10(3)/ L [facility] Eos % 2.3 % [facility] Eosinophils Abs 0.5(H) 0.0 - 0.4 x10(3)/[facility] Basophil % 0.3 % [facility] Baso Absolute 0.1 0.0 - 0.1 x10(3)/[facility] Immature Gran % 1.90 % [facility] Comment: Immature granulocytes(IG's)percentage and absolute count will include metamyelocytes, myelocytes, and promyelocytes. Blood smears from CBCs yielding IG's will be scanned manually for concordance. If this scan disagrees with the automated IG or if promyelocytes are noted, a manual differential will be performed. Immature Gran Absolute 0.41(H) 0.00 - 0.04 x10(3)/[facility] Blood specimen (specimen) 09/14/2020 3:41 AM EDT 09/14/2020 3:49 AM EDT Narrative Resulting Agency Comment Spec In Lab Conor Hong MD HEMATOLOGY ORDERABL ES [facility] [place] [address] * (ABNORMAL) Hemogram (09/14/2020 3:41 AM EDT) White Blood Cell 21.8(H) 4.0 - 9.5 x10(3)/[facility] Red Blood Cell 3.09(L) 4.58 - 5.54 x10(6)/[facility] Hemoglobin 9.6(L) 13.7 - 16.5 gm/dL [facility] Hematocrit 30.6(L) 40.5 - 48.5 % [facility] Mean Cell Volume 99.0(H) 82.9 - 93.1 fL [facility] Mean Cell Hemoglobin 31.1 27.5 - 32.1 pg [facility] Mean Cell Hemoglobin Concentration 31.4(L) 32.0 - 35.7 gm/dL [facility] Platelet 652(H) 145 - 357 x10(3)/mc L [facility] RDW Standard Deviation 50.3(H) 36.0 - 45.0 fL [facility] RDW coefficient of variation 13.9(H) 11.4 - 13.8 % [facility] Mean Platelet Volume 8.7 7.6 - 12.9 [facility] NRBC% auto 0.0 % [facility] NRBC Absolute 0.000 0.000 - 0.000 x10(3)/mc L [facility] Blood specimen (specimen) 09/14/2020 3:41 AM EDT 09/14/2020 3:49 AM EDT Narrative Resulting Agency Comment Spec In Lab Conor Hnog MD HEMATOLOGY ORDERABL ES [facility] [place] [address] * (ABNORMAL) Basic Metabolic Panel (non-fasting) (09/14/2020 3:41 AM EDT) Glucose 86 65 - 199 mg/dL [facility] Comment:Diabetes: >=200 mg/d L plus symptoms Blood Urea Nitrogen 19 10 - 20 mg/dL [facility] Creatinine 0.56(L) 0.80 - 1.50 mg/dL [facility] Sodium 138 135 - 145 mmol/L [facility] Potassium 4.5 3.5 - 5.0 mmol/L [facility] Comment: Please note: ??Patients with WBC >100,000 may have falsely elevated Potassium levels. ??For accurate Potassium quantification in these patients send serum separator tube (gold top) for subsequent determinations. ??Contact the Clinical Chemistry Laboratory if there are any questions. Chloride 106 98 - 107 mmol/L [facility] Carbon Dioxide 27 22 - 31 mmol/L [facility] Anion Gap 5 5 - 15 mmol/L [facility] Calcium 7.9(L) 8.5 - 10.5 mg/dL [facility] Est Glomerular Filtration Rate 115 >=60 mL/min/1. 73 m?? [facility] Comment: This patient? s estimated glomerular [...] Lab Marko Jordan MD CHEMISTRY ORDERABLE S [facility] [place] [address] * Vancomycin, trough (09/13/2020 9:42 AM EDT) Vancomycin, Trough 13.3 mg/L [facility] Comment: Therapeutic range for complicated infections [...] MD CHEMISTRY ORDERABLE S Performing Organization Address [facility]/ZIP Co de Phone Number [facility] [place] [address] * XR Chest PA & Lateral (Generic) [...] questions please contact the health career development coordinator that requested your imaging first. ? Narrative [...] have questions please contactthe health career development coordinator that requested your imaging first. Electronically signed by: Shaun Landis MD, [facility]([phone]), at 09/13/2020 6:41 AM Marko Jordan MD IMG DX ORDERABLES * Scan, Peripheral Blood (09/13/2020 3:30 AM EDT) Plat estimate Increased [facility] RBC Morphology Abnormal [facility] Macrocyte 1-5 /HPF [facility] [facility] Blood specimen (specimen) 09/13/2020 3:30 AM EDT 09/13/2020 3:36 AM EDT Narrative Resulting Agency Comment Spec In Lab Conor Hong MD HEMATOLOGY ORDERABL ES [facility] [place] [address] * (ABNORMAL) Differential, Automated (09/13/2020 3:30 AM EDT) Neutrophil % 80.7 % [facility] Neutrophil Absolute 18.53(H) 1.70 - 6.10 x10(3)/mc L [facility] Lymph % 6.7 % [facility] Lymphocytes Abs 1.5 0.9 - 3.2 x10(3)/mc L [facility] Monocyte % 8.4 % [facility] Monocyte Abs 1.9(H) 0.3 - 0.9 x10(3)/mc L [facility] Eos % 1.9 % [facility] Eosinophils Abs 0.4 0.0 - 0.4 x10(3)/mc L [facility] Basophil % 0.3 % [facility] Baso Absolute 0.1 0.0 - 0.1 x10(3)/mc L [facility] Immature Gran % 2.00 % [facility] Comment: Immature granulocytes(IG's)percentage and absolute count will include metamyelocytes, myelocytes, and promyelocytes. Blood smears from CBCs yielding IG's will be scanned manually for concordance. If this scan disagrees with the automated IG or if promyelocytes are noted, a manual differential will be performed. Immature Gran Absolute 0.45(H) 0.00 - 0.04 x10(3)/ L [facility] Blood specimen (specimen) 09/13/2020 3:30 AM EDT 09/13/2020 3:36 AM EDT Narrative Resulting Agency Comment Spec In Lab Conor Hong MD HEMATOLOGY ORDERABL ES [facility] [place] [address] * (ABNORMAL) Hemogram (09/13/2020 3:30 AM EDT) White Blood Cell 23.0(H) 4.0 - 9.5 x10(3)/mc L [facility] Red Blood Cell 3.34(L) 4.58 - 5.54 x10(6)/mc L [facility] Hemoglobin 10.5(L) 13.7 - 16.5 gm/dL [facility] Hematocrit 33.4(L) 40.5 - 48.5 % [facility] Mean Cell Volume 100.0(H) 82.9 - 93.1 [facility] Mean Cell Hemoglobin 31.4 27.5 - 32.1 pg [facility] Mean Cell Hemoglobin Concentration 31.4(L) 32.0 - 35.7 gm/dL [facility] Platelet 674(H) 145 - 357 x10(3)/mc L [facility] RDW Standard Deviation 51.2(H) 36.0 - 45.0 [facility] RDW coefficient of variation 13.7 11.4 - 13.8 % [facility] Mean Platelet Volume 8.7 7.6 - 12.9 [facility] NRBC% auto 0.0 % [facility] NRBC Absolute 0.000 0.000 - 0.000 x10(3)/mc L [facility] Blood specimen (specimen) 09/13/2020 3:30 AM EDT 09/13/2020 3:36 AM EDT Narrative Resulting Agency Comment Spec In Lab Conor Hong MD HEMATOLOGY ORDERABL ES [facility] [place] [address] * (ABNORMAL) Basic Metabolic Panel (non-fasting) (09/13/2020 3:30 AM EDT) Glucose 139 65 - 199 mg/dL [facility] Comment:Diabetes: >=200 mg/d L plus symptoms Blood Urea Nitrogen 20 10 - 20 mg/dL [facility] Creatinine 0.59(L) 0.80 - 1.50 mg/dL [facility] Sodium 139 135 - 145 mmol/L [facility] Potassium 4.1 3.5 - 5.0 mmol/L [facility] Comment: Please note: ??Patients with WBC >100,000 may have falsely elevated Potassium levels. ??For accurate Potassium quantification in these patients send serum separator tube (gold top) for subsequent determinations. ??Contact the Clinical Chemistry Laboratory if there are any questions. Chloride 106 98 - 107 mmol/L [facility] Carbon Dioxide 25 22 - 31 mmol/L [facility] Anion Gap 8 5 - 15 mmol/L [facility] Calcium 8.4(L) 8.5 - 10.5 mg/dL [facility] Est Glomerular Filtration Rate 112 >=60 mL/min/1. 73 m?? [facility] Comment: This patient? s estimated glomerular [...] Lab Marko Jordan MD CHEMISTRY ORDERABLE S [facility] [place] [place] [address] * CT Chest wo Contrast (Generic) (09/12/2020 [...] questions please contact the health career development coordinator that requested your imaging first. ? Electronically signed by: Simone Scott MD, [facility] ([phone]), at 09/12/2020 12:26 PM Narrative 09/12/2020 12:26 PM EDT EXAMINATION: CT [...] have questions please contactthe health career development coordinator that requested your imaging first. Electronically signed by: Simone Scott MD, [facility]([phone]), at 09/12/2020 12:26 PM Marko Jordan MD IMG CT ORDERABLES * [...] questions please contact the health career development coordinator that requested your imaging first. ? Electronically signed by: Shaun Landis MD, [facility] ([phone]), at 09/12/2020 1:36 AM Narrative 09/12/2020 1:36 AM EDT EXAMINATION: XR [...] have questions please contactthe health career development coordinator that requested your imaging first. Electronically signed by: Shaun Landis MD, [facility]([phone]), at 09/12/2020 1:36 AM Marko Jordan MD IMG DX ORDERABLES * Anaerobic Culture (09/12/2020 1:03 AM EDT) Anaerobic Culture No anaerobic organisms isolated [facility] Pleural fluid specimen (specimen) 09/12/2020 1:03 AM EDT 09/12/2020 1:21 AM EDT Comment:RIGHT EMPYEMA Narrative Resulting Agency Comment Spec In Lab Rocco Cramer MD MICROBIOLOGY - GENER AL ORDERABLES Performing Organization Address City/[facility]/ZIP Co de Phone Number [facility] [place] [place] [address] * Body Fluid Culture, Aerobic (09/12/2020 1:03 AM EDT) Body Fluid Culture No growth [facility] Gram Stain Many Neutrophils seen No microorganisms seen. [facility] Pleural fluid specimen (specimen) 09/12/2020 1:03 AM EDT 09/12/2020 1:21 AM EDT Comment:RIGHT EMPYEMA Narrative Resulting Agency Comment Spec In Lab Rocco Cramer MD MICROBIOLOGY - GENER AL ORDERABLES Performing Organization Address City/[facility]/ZIP Co de Phone Number [facility] [place] [address] * Triglyceride Level Body Fluid Pleural, Right (09/12/2020 12:45 AM EDT) Triglyceride, Fluid 30 mg/dL [facility] Comment: No reference range is available for the specimen type submitted. ??The performance of this assay for the submitted type has not been validated and results should be interpreted accordingly and with regard to the patient's clinical status. Trig, Fld Type Pleural, Right [facility] Pleural fluid specimen (specimen) 09/12/2020 12:45 AM EDT 09/12/2020 12:55 AM EDT Narrative Resulting Agency Comment Spec In Lab Debbie Salgado MD BODY FLUIDS AND STOO LS ORDERABLES Performing Organization Address [facility] de Phone Number [facility] [place] [address] * Protein Level Body Fluid Pleural, Right (09/12/2020 12:45 AM EDT) Protein, Fluid 3.4 gm/dL [facility] Comment: There is no reference range available for the specimen type submitted. For determination of transudative vs. exudative pleural effusions: Transudates: Pleural Total Protein/Serum Total Protein <0.5 g/dL. Exudates: Pleural Total Protein/Serum Total Protein >0.5 g/dL. Prot, Fld Type Pleural, Right [facility] Pleural fluid specimen (specimen) 09/12/2020 12:45 AM EDT 09/12/2020 12:55 AM EDT Narrative Resulting Agency Comment Spec In Lab Debbie Salgado MD BODY FLUIDS AND STOO LS ORDERABLES Performing Organization Address [facility] de Phone Number [facility] [place] [address] * Cell Count Body Fluid Pleural Fluid (09/12/2020 12:45 AM EDT) Body Fluid Source Pleural Fl M [facility] Color, Fld Yellow [facility] Appearance, Fld Cloudy [facility] WBC Count, Fld 3,460 /mcl [facility] Comment: Guideline listed below apply to [...] interpretation. Polymorphonuclear cells BF % 96 % [facility] Comment: Polymorphonuclear cell percent and absolute values may contain Neutrophils, Eosinophils, and Basophils. Body fluid smear will be scanned manually for concordance. Mononuclear cells BF % 4 % [facility] Comment: Mononuclear cell percent and absolute values may contain Lymphocytes and Monocytes. Body fluid smear will be scanned manually for concordance. Polymorphonuclear cells BF ABS 3,307 /[facility] Comment: Polymorphonuclear cell percent and absolute values may contain Neutrophils, Eosinophils, and Basophils. Body fluid smear will be scanned manually for concordance. Mononuclear cells BF ABS 153 /[facility] Comment: Mononuclear cell percent and absolute values may contain Lymphocytes and Monocytes. Body fluid smear will be scanned manually for concordance. Pleural fluid specimen (specimen) 09/12/2020 12:45 AM EDT 09/12/2020 12:55 AM EDT Narrative Resulting Agency Comment Spec In Lab Debbie Salgado MD BODY FLUIDS AND STOO LS ORDERABLES [facility] [place] [address] * COVID-19 PCR (09/11/2020 10:30 PM EDT) SARS-CoV-2 RNA (Rapid) Not Detected Not Detected [facility] Comment: This result should be interpreted [...] using the Simplexa COVID-19 Direct Assay by [employer] as authorized by the FDA issued Emergency [...] Department of Pathology and Laboratory Medicine at [facility], certified under the Clinical Laboratory Improvement Amendments [...] fact sheets at the following FDA website: https://www.fda.gov/medical-devices/uoqlwvbhujm-ujfkdwp-0211-ttmii-01-uplmluyea- use-a sgyysokvssoea-wksovud-bccvdtj/kbqfe-hnbqqjzjehb-ohdn SARS-CoV-2 Source LATHE PULLER Swab MA RY [facility] Nasopharyngeal swab (specimen) 09/11/2020 10:30 PM EDT 09/11/2020 10:38 PM EDT Comment:Symptoms->Surveillan ce Narrative Resulting Agency Comment Spec In Lab Debbie Salgado MD MICROBIOLOGY - GENER AL ORDERABLES [facility] [place] [address] * (ABNORMAL) Prothrombin Time (09/11/2020 8:27 PM EDT) Prothrombin Time 14.1(H) 9.4 - 12.5 sec [facility] International Normalization Ratio 1.2 [facility] Comment: An INR <2.0 indicates adequate [...] MD HEMATOLOGY ORDERABLE S Performing Organization Address [facility] Co de Phone Number [facility] [place] [address] * APTT (09/11/2020 8:27 PM EDT) Partial Thromboplastin Time 32 25 - 37 sec [facility] Comment: The PTT is NOT appropriate for heparin monitoring. Use the Anti-Xa level for heparin monitoring (HEP UFH) or LMWH monitoring (HEP LMW). A PTT less than 37 seconds generally indicates adequate hemostasis. Blood specimen (specimen) 09/11/2020 8:27 PM EDT 09/11/2020 8:32 PM EDT Narrative Resulting Agency Comment Spec In Lab Debbie Salgado MD HEMATOLOGY ORDERABLE S Performing Organization Address City/[facility]/ZIP Co de Phone Number [facility] [place] [address] * Lactate Dehydrogenase (09/11/2020 8:07 PM EDT) Lactate Dehydrogenase 139 110 - 220 unit/L [facility] Blood specimen (specimen) 09/11/2020 8:07 PM EDT 09/11/2020 8:11 PM EDT Narrative Resulting Agency Comment Spec In Lab Debbie Salgado MD CHEMISTRY ORDERABLES Performing Organization Address City/[facility]/ZIP Co de Phone Number [facility] [place] [address] * (ABNORMAL) CRP, acute inflammation (09/11/2020 8:07 PM EDT) C-Reactive Protein >300.0(H) <=4.9 mg/L [facility] Blood specimen (specimen) 09/11/2020 8:07 PM EDT 09/11/2020 8:11 PM EDT Narrative Resulting Agency Comment Spec In Lab Debbie Salgado MD CHEMISTRY ORDERABLES Performing Organization Address [facility] Co de Phone Number [facility] [place] [address] * (ABNORMAL) Prealbumin (09/11/2020 8:07 PM EDT) Prealbumin 3(L) 20 - 40 mg/dL [facility] Comment: Prealbumin levels are generally lower in the pediatric population; adult concentrations are usually attained near puberty. Blood specimen (specimen) 09/11/2020 8:07 PM EDT 09/11/2020 8:11 PM EDT Narrative Resulting Agency Comment Spec In Lab Debbie Salgado MD CHEMISTRY ORDERABLES Performing Organization Address City/[facility]/ZIP Co de Phone Number [facility] [place] [address] * (ABNORMAL) Phosphorus (09/11/2020 8:07 PM EDT) Phosphorus 5.0(H) 2.5 - 4.5 mg/dL [facility] Blood specimen (specimen) 09/11/2020 8:07 PM EDT 09/11/2020 8:11 PM EDT Narrative Resulting Agency Comment Spec In Lab Debbie Salgado MD CHEMISTRY ORDERABLES Performing Organization Address City/[facility]/ZIP Co de Phone Number [facility] [place] [address] * Magnesium (09/11/2020 8:07 PM EDT) Magnesium 0.89 0.69 - 1.07 mmol/L [facility] Blood specimen (specimen) 09/11/2020 8:07 PM EDT 09/11/2020 8:11 PM EDT Narrative Resulting Agency Comment Spec In Lab Debbie Salgado MD CHEMISTRY ORDERABLES Performing Organization Address [facility] Co de Phone Number [facility] [place] [address] * (ABNORMAL) Comprehensive metabolic panel (non-fasting) (09/11/2020 8:07 PM EDT) Pathologist [facility] Glucose 110 65 - 199 mg/dL [facility] Comment:Diabetes: >=200 mg/d L plus symptoms Blood Urea Nitrogen 14 10 - 20 mg/dL [facility] Creatinine 0.49(L) 0.80 - 1.50 mg/dL [facility] Sodium 138 135 - 145 mmol/L [facility] Potassium 4.6 3.5 - 5.0 mmol/L [facility] Comment: Please note: ??Patients with WBC >100,000 may have falsely elevated Potassium levels. ??For accurate Potassium quantification in these patients send serum separator tube (gold top) for subsequent determinations. ??Contact the Clinical Chemistry Laboratory if there are any questions. Chloride 100 98 - 107 mmol/L [facility] Carbon Dioxide 29 22 - 31 mmol/L [facility] Anion Gap 9 5 - 15 mmol/L [facility] Calcium 8.8 8.5 - 10.5 mg/dL [facility] Protein, Total 5.9(L) 6.1 - 8.0 gm/dL [facility] Albumin 2.2(L) 3.2 - 5.2 gm/dL [facility] Aspartate Aminotransferase 57(H) 0 - 39 unit/L [facility] Alanine Aminotransferase 82(H) 0 - 55 unit/L [facility] Alkaline Phosphatase 387(H) 40 - 130 unit/L [facility] Bilirubin, Total 0.3 0.2 - 1.3 mg/dL [facility] Est Glomerular Filtration Rate 121 >=60 mL/min/1. 73 m?? [facility] Comment: This patient? s estimated glomerular [...] In Lab Debbie Salgado MD CHEMISTRY ORDERABLES [facility] [place] [address] * (ABNORMAL) Hemogram (09/11/2020 8:07 PM EDT) White Blood Cell 27.6(H) 4.0 - 9.5 x10(3)/mc L [facility] Red Blood Cell 3.12(L) 4.58 - 5.54 x10(6)/mc L [facility] Hemoglobin 9.8(L) 13.7 - 16.5 gm/dL [facility] Hematocrit 30.2(L) 40.5 - 48.5 % [facility] Mean Cell Volume 96.8(H) 82.9 - 93.1 fL [facility] Mean Cell Hemoglobin 31.4 27.5 - 32.1 pg [facility] Mean Cell Hemoglobin Concentration 32.5 32.0 - 35.7 gm/dL [facility] Platelet 662(H) 145 - 357 x10(3)/mc L [facility] RDW Standard Deviation 48.5(H) 36.0 - 45.0 fL [facility] RDW coefficient of variation 13.5 11.4 - 13.8 % [facility] Mean Platelet Volume 8.7 7.6 - 12.9 [facility] NRBC% auto 0.0 % [facility] NRBC Absolute 0.000 0.000 - 0.000 x10(3)/mc L [facility] Blood specimen (specimen) 09/11/2020 8:07 PM EDT 09/11/2020 8:11 PM EDT Narrative Resulting Agency Comment Spec In Lab Debbie Salgado MD HEMATOLOGY ORDERABLE S [facility] [place] [address] * Request For 2nd Read CT Chest [...] questions please contact the health career development coordinator that requested your imaging first. ? Electronically signed by: Simone Scott MD, [facility] ([phone]), at 09/11/2020 7:59 PM Narrative 09/11/2020 7:59 PM EDT EXAMINATION: REQUEST FOR 2ND READ CT CHEST CLINICAL HISTORY: right sided empyema?; Sending Institution [facility]; Date of exam 20200910; I believe a reinterpretation of this exam may alter care of Patient. Yes; What Modality is the exam? CT Scan; Body Part (please add comments as necessary): Chest TECHNIQUE: A noncontrast chest CT performed at [facility] on September 10, 2020 [...] CLINICAL HISTORY: right sided empyema?; Sending Institution [facility]; Dateof exam 20200910; I believe a reinterpretation of this exam may alter care ofPatient. Yes; What Modality is the exam? CT Scan; Body Part (please add commentsas necessary): Chest TECHNIQUE: A noncontrast chest CT performed at [facility] on 2020 is submitted [...] in the right lower lung (series 9, [id number]) is unchanged. The right lower lobe is [...] have questions please contactthe health career development coordinator that requested your imaging first. Electronically signed by: Simone Scott MD, [facility]([phone]), at 09/11/2020 7:59 PM Marko Jordan MD [facility] ORDERABLES * Film Library- Storage Only CT Chest (09/07/2020 12:05 AM EDT) Narrative [facility] - 09/11/2020 7:36 PM EDT This exam is auto-finalizing. It's purpose is for storage only. Authorizing Provider Result Ester KLINE FILM LIBRARY OR DERABLES Performing Organization Address [facility] Phone Number [place], [place] * Film Library- Storage Only DX Chest (09/07/2020 12:00 AM EDT) Narrative [facility] 09/11/2020 7:34 PM EDT This exam is auto-finalizing. It's purpose is for storage only. Authorizing Provider Result Ester KLINE FILM LIBRARY OR DERABLES Performing Organization Address [facility] de Phone Number [place], [place] documented in this encounter Visit Diagnoses [...] the group who is administering this medication: [id number], Please indicate the name & specialty of [...] the group who is administering this medication: 8349, Please indicate the name & specialty of [...] Kamila 09/12/20 at 1700, Last dose on [facility] 09/15/20 at 0500, Administration is limited to [...] the group who is administering this medication: 7415, Please indicate the name & specialty of [...] 6 mg, Oral, NIGHTLY, First dose on [facility] 09/12/20 at 2100, Until Discontinued, Routine Given [...] (220 mcg), Inhalation, NIGHTLY, First dose on [facility] 09/12/20 at 2100, Until Discontinued, Routine, Does [...] the group who is administering this medication: 5510, Please indicate the name & specialty of [...] Garrison RN)1700 (Due - Provider: Maggy Sullivan [facility]) polyethylene glycoL (Miralax) packet 17 g 17 g, Oral, DAILY, First dose on Wed09/13/20 at 0900, Until Discontinued, Routine 0855 (Given - Provider: Jennifer Hare RN) 0853 (Given - Provider: Jennifer Hare RN) 1008 (Given - Provider: Julia Garrison RN) pregabalin (Lyrica) capsule 100 mg 100 [...] Arpan Jung RN)2204 (Stopped - Provider: Arpan Jugn RN) 0505 (New Bag - Provider: Arpan [...] Per MD Order - Comment: held per MADELAINE Chandler) Vancomycin Level - [facility] Order Reminder NOT APPLICABLE, ONCE, On [...] RN)2012 (Given - Provider: Sonia Huynh, KASANDRA) 0535 (Given - Provider: Sonia Huynh [...] Jung RN) 0855 (Given - Provider: Jennifer aHre RN)151 (Given - Provider: Jennifer Hare RN)2010 [...] the group who is administering this medication: 5418, Please indicate the name & specialty of [...] the group who is administering this medication: 7978, Please indicate the name & specialty of [...] Routine documented in this encounter Care Teams Trekking Guide Relationship Specialty Start Date End Date Nino Underwood MD [address] [place] [address] PCP - General Family Medicine 09/11/20 03/29/23 documented as of this encounter
--- OUTSIDE RECORDS SUMMARY | 2024-02-03 22:33 | XMS_ITS | Encounter Summary ---
Author Organization [facility] Address [address] [place] [address] Care Team Providers Care Ball Sorter Name Role Phone Unavailable Primary Care Provider Unavailabl e Encounter Details Date Type Department Care Team (Latest Contact Info) Description 05/20/2008 11:06 EST - 05/20/2008 11:59 EST Hospital Encounter [facility] Emergency Department - [facility] [address] [place] [address] Emergency, Default, MD Discharge Disposition: Discharged to [...] E ORDERABLES [facility] [address] [place] [address] * GLUCOSE, SERUM (05/20/2008 11:45 EST) Glucose, Serum 95 70 - 100 mg/dl [facility] 05/20/2008 11:4 5 EST 05/20/2008 11:55 EST Default Emergency MD CHEMISTRY & BLOOD G ORDERABLES Performing Organization Address [facility] Phone Number [facility] [address] [place] [address] * (ABNORMAL) LIPASE (05/20/2008 11:45 EST) Lipase 293(H) 0 - 250 U/L [facility] 05/20/2008 11:4 5 EST 05/20/2008 11:55 EST Default Emergency MD CHEMISTRY & BLOOD G ORDERABLES Performing Organization Address [facility] Phone Number [facility] [address] [place] [address] * CREATININE (05/20/2008 11:45 EST) Creatinine 0.70 0.7 - 1.5 mg/dl [facility] GFR, Calculated >60 ml/min/1.7 3m2 [facility] 05/20/2008 11:4 5 EST 05/20/2008 11:55 EST Default Emergency MD CHEMISTRY & BLOOD G ORDERABLES Performing Organization Address [facility] Phone Number [facility] [address] [place] [address] * BUN (05/20/2008 11:45 EST) BUN 11 10 - 26 mg/dl [facility] 05/20/2008 11:4 5 EST 05/20/2008 11:55 EST Default Emergency MD CHEMISTRY & BLOOD G ORDERABLES Performing Organization Address [facility] Phone Number [facility] [address] [place] [address] * ELECTROLYTES (05/20/2008 11:45 EST) Sodium 139 [...] & BLOOD G ORDERABLES Performing Organization Address City/State/[facility] Co de Phone Number [facility] [address] [place] [address] documented in this encounter Visit Diagnoses Not on filedocumented in this encounter
--- OUTSIDE RECORDS SUMMARY | 2024-02-03 22:33 | XMS_ITS | Encounter Summary ---
[place] [address] Care Team Providers Care Dust Puller Name Role Phone Nino Underwood MD Primary Care Provider [phone] Encounter Details Date Type Department Care Team (Late st Contact Info) Description 09/11/2020 7:40 PM EDT Ancillary Procedure [place] [id number] Social History Tobacco Use Types Packs/Day Years [...] who have questions please contact the health ambulatory care that requested your imaging first. ? Electronically signed by: Simone Scott MD, [facility] ([phone]), at 09/11/2020 7:59 PM Narrative 09/11/2020 7:59 PM EDT EXAMINATION: REQUEST FOR 2ND READ CT CHEST CLINICAL HISTORY: right sided empyema?; Sending Institution [facility]; Date of exam [id number]; I believe a reinterpretation of this exam may alter care of Patient. Yes; What Modality is the exam? CT Scan; Body Part (please add comments as necessary): Chest TECHNIQUE: A noncontrast chest CT performed at [facility] on September 10, 2020 is submitted for [...] TECHNIQUE: A noncontrast chest CT performed at [facility] on 2020 is submitted for review. 3 [...] in the right lower lung (series 9, [id number]) is unchanged. The right lower lobe is [...] patients who have questions please contactthe health ambulatory care that requested your imaging first. Electronically signed by: Simone Scott MD, [facility]([phone]), at 09/11/2020 7:59 PM Marko Jordan MD IMG OUTSIDE INTERPR ETATION ORDERABLES documented in this encounter Visit Diagnoses Not on filedocumented in this encounter Care Teams Dust Puller Relationship Specialty Start Date End Date Nino Underwood MD [address] [place] [address] PCP - General Family Medicine 09/11/20 03/29/23 documented as of this encounter
--- OUTSIDE RECORDS SUMMARY | 2024-02-03 22:33 | XMS_ITS | Encounter Summary ---
Author Organization [facility] Address [address] [place] [address] Care Team Providers Care Workers Compensation Claims Supervisor Name Role Phone Mitchell Del Rosario MD Primary Care Provider Mitchell Bragg MD Primary Care Provider Braeden johnson Encounter Details Date Type Department Care Team (Late st Contact Info) Description 04/12/2007 Results Only [facility] [address] [place] [address] Unknown, Provider, Social History Tobacco Use Types [...] 4TH GENERATION Routine 04/12/2007 11:45 EST [facility], [facility] Routine 04/12/2007 11:45 EST documented in [...] BLOOD GA S ORDERABLES Performing Organization Address [facility] Co de Phone Number [facility] [address] [place] [address] * LEAD, [facility] (04/12/2007 11:45 EST) Lead <5 0 - 20 ug/dl [facility] 04/12/2007 11:4 5 EST 04/12/2007 21:39 EST Provider Unknown CHEMISTRY & BLOOD GA S ORDERABLES Performing Organization Address [facility] de Phone Number [facility] [address] [place] [address] * HIV ANTIBODY (04/12/2007 11:45 EST) HIV 1/2 Antibody NONREACT. NR [facility] 04/12/2007 11:4 5 EST 04/12/2007 21:39 EST Provider Unknown IMMUNOLOGY AND SEROL OGY ORDERABLES Performing Organization Address [facility] de Phone Number [facility] [address] [place] [address] * HEPATITIS A ANTIBODY IGM (04/12/2007 11:45 EST) Hep A Antibody IgM Neg Result consistent with past exposure, NOT a recent infection. [facility] 04/12/2007 11:4 5 EST 04/12/2007 21:39 EST Provider Unknown CHEMISTRY & BLOOD GA S ORDERABLES Performing Organization Address [facility] Co de Phone Number [facility] [address] [place] [address] documented in this encounter Visit Diagnoses Not on filedocumented in this encounter Care Teams Workers Compensation Claims Supervisor Relationship Specialty Start Date End Date Zetawnya, Mitchell M, MD PCP - General 01/08/09 09/24/10 Mitchell Del Rosario MD PCP - General 11/05/08 01/07/09 documented as of this encounter
--- OUTSIDE RECORDS SUMMARY | 2024-02-03 22:33 | XMS_ITS | Encounter Summary ---
Author Organization [facility] Address [address] [place] [address] Care Team Providers Care Chinese Language Professor Name Role Phone Unavailable Primary Care Provider Unavailabl e Encounter Details Date Type Department Care Team (Latest Contact Info) Description 10/09/2007 23:51 EDT - 10/10/2007 11:59 EDT Hospital Encounter [facility] Emergency Department - [facility] [address] [place] [address] Emergency, Default, MD Discharge Disposition: Home or [...]
--- OUTSIDE RECORDS SUMMARY | 2024-02-03 22:34 | XMS_ITS | Encounter Summary ---
[place] [address] Care Team Providers Care Reverberatory Furnace Supervisor Name Role Phone Jaxon Napier MD Primary Care Provider [phone] Encounter Details Date Type Department Care Team (Late st Contact Info) Description 03/26/2020 Ancillary Procedure [place] [address] Nino Underwood MD [address] [place] [id number] Social History Tobacco Use Types Packs/Day Years [...] / CT (03/26/2020 12:00 AM EDT) Narrative [facility] - 01/09/2021 4:39 PM EDT This exam is auto-finalizing. It's purpose is for storage only. Nino Underwood MD G FILM LIBRARY ORD ERABLES [place], [place] documented in this encounter Visit Diagnoses Not on filedocumented in this encounter Care Teams Reverberatory Furnace Supervisor Relationship Specialty Start Date End Date Jaxon Napier MD [address] [place] [address] PCP - General 08/10/12 09/10/20 documented as of this encounter
--- OUTSIDE RECORDS SUMMARY | 2024-02-03 22:34 | XMS_ITS | Encounter Summary ---
[place] [address] Care Team Providers Care Street Sweeper Name Role Phone Jaxon Napier MD Primary Care Provider [phone] Encounter Details Date Type Department Care Team (Late st Contact Info) Description 07/23/2020 Ancillary Procedure [place] [address] Nino Underwood MD [address] [address] Social History Tobacco Use Types Packs/Day Years [...] / CT (07/23/2020 12:00 AM EST) Narrative [facility] - 01/09/2021 4:32 PM EDT This exam is auto-finalizing. It's purpose is for storage only. Nino Underwood MD IMG FILM LIBRARY ORD ERABLES [place], [place] documented in this encounter Visit Diagnoses Not on filedocumented in this encounter Care Teams Street Sweeper Relationship Specialty Start Date End Date Jaxon Napier MD [address] [place] [address] PCP - General 08/10/12 09/10/20 documented as of this encounter
--- OUTSIDE RECORDS SUMMARY | 2024-02-03 22:34 | XMS_ITS | Encounter Summary ---
Author Organization [facility] Address [facility] [place] [place] [address] Care Team Providers Care Fiber Heel Piece Shaper Name Role Phone Jaxon Napier MD Primary Care Provider [phone] Encounter Details Date Type Department Care Team (Late st Contact Info) Description 09/07/2020 12:05 AM EDT Ancillary Procedure [place] [phone] Social History Tobacco Use Types Packs/Day Years [...] CT Chest (09/07/2020 12:05 AM EDT) Narrative [facility] - 09/11/2020 7:36 PM EDT This exam is auto-finalizing. It's purpose is for storage only. Marko Jordan MD IMG FILM LIBRARY OR DERABLES [place], [place] documented in this encounter Visit Diagnoses Not on filedocumented in this encounter Care Teams Fiber Heel Piece Shaper Relationship Specialty Start Date End Date Jaxon Napier MD [address] [place] [address] PCP - General 08/10/12 09/10/20 documented as of this encounter
--- OUTSIDE RECORDS SUMMARY | 2024-02-03 22:34 | XMS_ITS | Encounter Summary ---
Author Organization [facility] Address [facility] [place] [address] Care Team Providers Care Branch Or Department Chief Librarian Name Role Phone Jaxon Napier MD Primary Care Provider [phone] Encounter Details Date Type Department Care Team (Late st Contact Info) Description 09/07/2020 Ancillary Procedure [place] [phone] Social History Tobacco Use Types Packs/Day Years [...] DX Chest (09/07/2020 12:00 AM EDT) Narrative [facility] - 09/11/2020 7:34 PM EDT This exam is auto-finalizing. It's purpose is for storage only. Marko Jordan MD IMG FILM LIBRARY OR DERABLES [place], [place] documented in this encounter Visit Diagnoses Not on filedocumented in this encounter Care Teams Branch Or Department Chief Librarian Relationship Specialty Start Date End Date Jaxon Napier MD [address] [place] [address] PCP - General 08/10/12 09/10/20 documented as of this encounter
--- OUTSIDE RECORDS SUMMARY | 2024-02-03 22:34 | XMS_ITS | Encounter Summary ---
Author Organization [facility] [place] [address] Care Team Providers Care Electric Meter Reader Name Role Phone Jaxon Napier MD Primary Care Provider [phone] Encounter Details Date Type Department Care Team (Late st Contact Info) Description 09/10/2020 Ancillary Procedure [place] [address] Marko Jordan MD [facility] [place] [address] Social History Tobacco Use Types Packs/Day Years [...] CT Chest (09/10/2020 12:00 AM EDT) Narrative [facility] - 09/11/2020 3:43 PM EDT This exam is auto-finalizing. It's purpose is for storage only. Marko Jordan MD IMG FILM LIBRARY OR DERABLES [place], [place] documented in this encounter Visit Diagnoses Not on filedocumented in this encounter Care Teams Electric Meter Reader Relationship Specialty Start Date End Date Jaxon Napier MD [address] [place] [address] PCP - General 08/10/12 09/10/20 documented as of this encounter
--- OUTSIDE RECORDS SUMMARY | 2024-02-03 22:34 | XMS_ITS | Encounter Summary ---
Author Organization [facility] Address [facility] [place] [address] Care Team Providers Care Hand Coper Name Role Phone Nino Underwood MD Primary Care Provider [phone] Encounter Details Date Type Department Care Team (Late st Contact Info) Description 09/11/2020 Telephone [place] [address] Marko Jordan MD [facility] [place] [address] Social History Tobacco Use Types Packs/Day Years [...] currently smoked 2ppd. He has been admitted [facility] for the last few days. He was [...] He is on the medicine floor at [facility]. He had a CT scan [...] on filedocumented in this encounter Care Teams Hand Coper Relationship Specialty Start Date End Date Nino Underwood MD [address] [place] [address] PCP - General Family Medicine 09/11/20 03/29/23 documented as of this encounter
[2024-02-03 22:53] LABS: Abs Immature Grans 0.02 10^3/uL (0.0-0.06); Absolute Basophil Count 0.05 10^3/uL (0.0-0.2); Absolute Lymphocyte Count 1.32 10^3/uL (1.2-3.4); Absolute Monocyte Count 0.58 10^3/uL (0.1-0.8); Absolute Neutrophil Count 5.69 10^3/uL (1.2-6.7); Basophils % 0.6 %; Eosinophils % 2.5 %; HCT 45.6 % (40.0-50.0); HGB 14.9 g/dL (13.5-17.5); Immature Grans % 0.3 %; Lymphocytes % 16.8 %; MCH 32.7 pg (27.0-33.0); MCHC 32.7 % (32.0-36.0); MCV 100 fL (80-95); MPV 9.9 fL (8.0-11.0); Monocytes % 7.4 %; Neutrophils % 72.4 %; Platelet Count 401 10^3/uL (130-400); RBC 4.55 10^6/uL (4.36-5.78); RDW 14.1 % (11.8-14.1); RDW-SD 52.8 fL; WBC 7.86 10^3/uL (4.4-10.8)
[2024-02-03 23:08] LABS: Anion Gap 6.1 mmol/L (3-11); BUN 8 mg/dL (7-18); CO2 27.9 mmol/L (21.0-32.0); CREATININE 0.9 mg/dL (0.70-1.30); Calcium 9.6 mg/dL (8.5-10.1); Chloride 102 mmol/L (98-107); Estimated GFR 97.78 (mL/min/1.73m2); Glucose 112 mg/dL (74-106); Potassium 4.9 mmol/L (3.5-5.1); Sodium 136 mmol/L (136-145)
== END 2024-02-03 22:22 | disposition home or self-care (01) ==
LOC: LBN 22:21
PROVIDERS: Visit Provider Podiatrist
DX: Z01.818 Encounter for other preprocedural examination (principal)
CPT/HCPCS: 80048; 85025

== ENCOUNTER 2024-07-25 16:03 | Outpatient (REF) | payer MEDICAID, SELFPAY ==
[2024-07-25 21:11] LABS: HCT 45.9 % (40.0-50.0); HGB 14.7 g/dL (13.5-17.5); MCH 32.9 pg (27.0-33.0); MCV 103 fL (80-95); MPV 9.5 fL (8.0-11.0); Platelet Count 353 10^3/uL (130-400); RBC 4.47 10^6/uL (4.36-5.78); RDW 13.9 % (11.8-14.1); RDW-SD 52.8 fL; WBC 9.25 10^3/uL (4.4-10.8)
[2024-07-25 21:20] LABS: C-Reactive Protein 0.52 mg/dL (<or=0.5)
[2024-07-25 21:25] LABS: ESR 18 mm/hr (0-20)
[2024-07-26 17:57] LABS: Rheumatoid Factor <8.6 IU/mL (<12.0)
== END 2024-07-25 16:04 | disposition home or self-care (01) ==
LOC: NCHCN 16:03
PROVIDERS: Visit Provider Physician Assistant
DX: R22.33 Localized swelling, mass and lump, upper limb, bilateral (principal); C81.90 Hodgkin lymphoma, unspecified, unspecified site
CPT/HCPCS: 85027; 85652; 86140; 86431

== ENCOUNTER 2024-12-27 21:21 | Outpatient (REF) | payer MEDICAID, SELFPAY ==
[2024-12-27 21:19] LABS: Abs Immature Grans 0.02 10^3/uL (0.0-0.06); HCT 41.8 % (40.0-50.0); HGB 14.1 g/dL (13.5-17.5); Immature Grans % 0.2 %; MCH 33.1 pg (27.0-33.0); MCHC 33.7 % (32.0-36.0); MCV 98 fL (80-95); MPV 9.7 fL (8.0-11.0); Platelet Count 396 10^3/uL (130-400); RBC 4.26 10^6/uL (4.36-5.78); RDW 14.2 % (11.8-14.1); RDW-SD 51.8 fL; WBC 10.89 10^3/uL (4.4-10.8)
[2024-12-27 22:01] LABS: ALT 23 U/L (16-63); AST 22 U/L (15-37); Albumin 3.9 g/dL (3.4-5.0); Alkaline Phosphatase 73 U/L (46-116); Anion Gap 7.3 mmol/L (3-11); BUN 12 mg/dL (7-18); Bilirubin, Total 0.4 mg/dL (0.2-1.0); CO2 27.7 mmol/L (21.0-32.0); Calcium 9.4 mg/dL (8.5-10.1); Calculated LDL 86 mg/dL (<100); Chloride 104 mmol/L (98-107); Cholesterol 153 mg/dL (<200); Estimated GFR 100.69 (mL/min/1.73m2); Glucose 83 mg/dL (74-106); HDL Cholesterol 44 mg/dL (>or=40); Potassium 4.1 mmol/L (3.5-5.1); Sodium 139 mmol/L (136-145); Total Protein 7.3 g/dL (6.4-8.2); Triglyceride 116 mg/dL (<150); Vitamin B12 1920 pg/mL (193-986)
[2024-12-27 22:52] LABS: Hemoglobin A1C 5.4 % (<5.7)
[2024-12-28 18:00] LABS: PSA, Screening 1.4 ng/mL (<=4.5)
[2024-12-28 18:51] LABS: HIV-1/2 Ag & Ab Screen Negative (Negative)
== END 2024-12-27 21:22 | disposition home or self-care (01) ==
LOC: NCHCN 21:21
PROVIDERS: Visit Provider Nurse Practitioner Family
DX: Z00.00 Encounter for general adult medical examination without abnormal findings (principal); Z13.1 Encounter for screening for diabetes mellitus; Z11.4 Encounter for screening for human immunodeficiency virus [HIV]; Z13.220 Encounter for screening for lipoid disorders; C81.90 Hodgkin lymphoma, unspecified, unspecified site; Z12.5 Encounter for screening for malignant neoplasm of prostate; I10 Essential (primary) hypertension; E53.9 Vitamin B deficiency, unspecified
CPT/HCPCS: 80053; 80061; 84153; 87389; 82607; 83036; 85025